=== PATIENT | female | born 1975 | race Caucasian/White ===

== ENCOUNTER → 2024-03-05 15:33 | Outpatient (BNVA) | payer OTHER, SELFPAY | PROVIDERS: Visit Provider Physician Assistant Surgical ==

== ENCOUNTER 2024-04-02 08:27 | Outpatient (AMB) | payer OTHER, SELFPAY ==
--- NOTE | 2024-04-02 12:31 | A.OFFVIS_ITS ---
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: Details: Start time: 12.25pm, End time: 1.06pm ?I spent 36 minutes speaking with the patient on the phone plus an additional 5 minutes reviewing and updating records for a total of 41 minutes HPI Comments Details: Previous weight loss efforts: self diets and exercise Wakes up: 9am, Sleeps: 11pm Breakfast: skips Lunch: 1pm (canned chicken with lettuce) Dinner: 6-7pm (vegetables, fish) Snacks: none Exercise: none Fluids: Coffee: (1 cup/day with splenda), tea: none, soda: none, juice: Crystal light, ETOH: none PFSH Medical History (Updated 04/02/24 @ 12:40 by Pan Quintero MD) Lower extremity edema CHF (congestive heart failure) Hypertension DJD (degenerative joint disease) Asthma Insulin dependent type 2 diabetes mellitus Obstructive sleep apnea on CPAP Morbid obesity Surgical History (Updated 04/02/24 @ 12:40 by Pan Quintero MD) History of tubal ligation Telehealth Telehealth Telehealth Platform: Telephone Location of provider rendering services: practice address Location of patient: address on file Patient Identification confirmed using: Name, : Yes Telehealth method: voice only Patient verbally consented to treatment: Yes Patient verbally consented to billing insurance company: Yes Patient informed of any privacy concerns related to visit: Yes Minutes spent on Phone/Video with Pt.: 41 Assessment & Plan Assessment & Plan (1) Morbid obesity: Code(s): E66.01 - Morbid (severe) obesity due to excess calories Category: Medical Plan: 1.? Plan for lap sleeve gastrectomy. If diaphragmatic or ventral hernias are present at time of surgery, these will be repaired laparoscopically as well. Risks and complications include possible conversion to an open procedure, anastomotic leak, bleeding requiring transfusion, small bowel obstruction, , DVT and pulmonary embolism, cardiac, or pulmonary complications, as skilled nursing complications such as anastomotic ulcer, insufficient weight loss and vitamin deficiencies. I emphasized the importance of close follow-up, adherence to instructions and good communication. 2. You will receive a link of our software radha to generate an individualized nutritional and exercise plan specific for you. Please send me a screenshot of the plans you will generate Meal to include lean meat (beef, fish, pork, turkey, chicken), or indian yogurt, or egg whites, or beans with a salad with olive oil and fruits (berries, pears, apples, kiwi). Avoid salt, breads, potatoes, rice, pasta, desserts. ?3. If you choose shakes, each shake would be drunk slowly, like coffee in a period of 2 hours. ?4. If you choose bars, cut each bar in 4 pieces and eat each piece in 30min ?to make each bar last 2 hours. ?5. I emphasized the importance of measuring accurately the food portion and measure it when serving the food in plate ?6. The meal portions include a specific number of forks of meat and salad. You always eat the meat portion but you can replace up to half of salad/vegetables portion with rice, potatoes or pasta, or a fruit ?if you like. The less you do it the better weight loss will be. ?7. One full-size fork is what it can be scooped on the fork without falling aside and not what can be bit with the fork. Use regular forks like those you find in a typical restaurant. ?8.? Please send me weight measurements as soon as possible and then once a week. Always include your diet and exercise plan. 9. The best choice would be to purchase a stationary bike, elliptical or treadmill at home that can track calories. Let me know if you do so I can give you an exercise plan. ?10.?It is important of avoiding and for at least 18 months postoperatively and has been discussed at the infosession. ?11. Goal is to lose at least 1.5-2lbs per week ?12. Goal to lose 10% of your weight before surgery, which is about 38lbs. Ultimate weight goal: 350lbs before surgery 13. Please follow the diet plan exactly without any change. If you don't like something about the plan or you feel hungry you need to communicate with me so I can help you revise the plan. You should not change the plan yourself. Orders: Orders Insulin Today E11.9 - Type 2 diabetes mellitus without complications, E66.01 - Morbid (severe) obesity due to excess calories, G47.33 - Obstructive sleep apnea (adult) (pediatric), I10 - Essential (primary) hypertension, I50.9 - Heart failure, unspecified, J45.909 - Unspecified asthma, uncomplicated, Z79.4 - custodial (current) use of insulin H Pylori Breath Test Today E11.9 - Type 2 diabetes mellitus without complications, E66.01 - Morbid (severe) obesity due to excess calories, G47.33 - Obstructive sleep apnea (adult) (pediatric), I10 - Essential (primary) hypertension, I50.9 - Heart failure, unspecified, J45.909 - Unspecified asthma, uncomplicated, Z79.4 - long term care administrator (current) use of insulin Complete Blood Count Auto Diff Today E11.9 - Type 2 diabetes mellitus without complications, E66.01 - Morbid (severe) obesity due to excess calories, G47.33 - Obstructive sleep apnea (adult) (pediatric), I10 - Essential (primary) hypertension, I50.9 - Heart failure, unspecified, J45.909 - Unspecified asthma, uncomplicated, Z79.4 - long term care administrator (current) use of insulin Lipid Panel Today E11.9 - Type 2 diabetes mellitus without complications, E66.0 1 - Morbid (severe) obesity due to excess calories, G47.33 - Obstructive sleep apnea (adult) (pediatric), I10 - Essential (primary) hypertension, I50.9 - Heart failure, unspecified, J45.909 - Unspecified asthma, uncomplicated, Z79.4 - custodial (current) use of insulin IRON PROFILE Today E11.9 - Type 2 diabetes mellitus without complications, E66.01 - Morbid (severe) obesity due to excess calories, G47.33 - Obstructive sleep apnea (adult) (pediatric), I10 - Essential (primary) hypertension, I50.9 - Heart failure, unspecified, J45.909 - Unspecified asthma, uncomplicated, Z79.4 - custodial (current) use of insulin Vitamin B12 and Folate Today E11.9 - Type 2 diabetes mellitus without complications, E66.01 - Morbid (severe) obesity due to excess calories, G47.33 - Obstructive sleep apnea (adult) (pediatric), I10 - Essential (primary) hypertension, I50.9 - Heart failure, unspecified, J45.909 - Unspecified asthma, uncomplicated, Z79.4 - long term care administrator (current) use of insulin Vitamin B1 Today E11.9 - Type 2 diabetes mellitus without complications, E66.01 - Morbid (severe) obesity due to excess calories, G47.33 - Obstructive sleep apnea (adult) (pediatric), I10 - Essential (primary) hypertension, I50.9 - Heart failure, unspecified, J45.909 - Unspecified asthma, uncomplicated, Z79.4 - custodial (current) use of insulin US abdomen comp w elastography Today E11.9 - Type 2 diabetes mellitus without complications, E66.01 - Morbid (severe) obesity due to excess calories, G47.33 - Obstructive sleep apnea (adult) (pediatric), I10 - Essential (primary) hypertension, I50.9 - Heart failure, unspecified, J45.909 - Unspecified asthma, uncomplicated, Z79.4 - custodial (current) use of insulin XR chest 2V Today E11.9 - Type 2 diabetes mellitus without complications, E66.01 - Morbid (severe) obesity due to excess calories, G47.33 - Obstructive sleep apnea (adult) (pediatric), I10 - Essential (primary) hypertension, I50.9 - Heart failure, unspecified, J45.909 - Unspecified asthma, uncomplicated, Z79.4 - custodial (current) use of insulin Hemoglobin A1c Today E11.9 - Type 2 diabetes mellitus without complications, E66.01 - Morbid (severe) obesity due to excess calories, G47.33 - Obstructive sleep apnea (adult) (pediatric), I10 - Essential (primary) hypertension, I50.9 - Heart failure, unspecified, J45.909 - Unspecified asthma, uncomplicated, Z79.4 - long term care administrator (current) use of insulin Comprehensive Met. Panel Today E11.9 - Type 2 diabetes mellitus without complications, E66.01 - Morbid (severe) obesity due to excess calories, G47.33 - Obstructive sleep apnea (adult) (pediatric), I10 - Essential (primary) hypertension, I50.9 - Heart failure, unspecified, J45.909 - Unspecified asthma, uncomplicated, Z79.4 - long term care administrator (current) use of insulin Zinc Today E11.9 - Type 2 diabetes mellitus without complications, E66.01 - Morbid (severe) obesity due to excess calories, G47.33 - Obstructive sleep apnea (adult) (pediatric), I10 - Essential (primary) hypertension, I50.9 - Heart failure, unspecified, J45.909 - Unspecified asthma, uncomplicated, Z79.4 - long term care administrator (current) use of insulin C Reactive Protein Today E11.9 - Type 2 diabetes mellitus without complications, E66.01 - Morbid (severe) obesity due to excess calories, G47.33 - Obstructive sleep apnea (adult) (pediatric), I10 - Essential (primary) hypertension, I50.9 - Heart failure, unspecified, J45.909 - Unspecified asthma, uncomplicated, Z79.4 - long term care administrator (current) use of insulin Vitamin A Today E11.9 - Type 2 diabetes mellitus without complications, E66.01 - Morbid (severe) obesity due to excess calories, G47.33 - Obstructive sleep apnea (adult) (pediatric), I10 - Essential (primary) hypertension, I50.9 - Heart failure, unspecified, J45.909 - Unspecified asthma, uncomplicated, Z79.4 - custodial (current) use of insulin TSH reflex Free T4 Today E11.9 - Type 2 diabetes mellitus without complications, E66.01 - Morbid (severe) obesity due to excess calories, G47.33 - Obstructive sleep apnea (adult) (pediatric), I10 - Essential (primary) hypertension, I50.9 - Heart failure, unspecified, J45.909 - Unspecified asthma, uncomplicated, Z79.4 - long term care administrator (current) use of insulin Ferritin Today E11.9 - Type 2 diabetes mellitus without complications, E66.01 - Morbid (severe) obesity due to excess calories, G47.33 - Obstructive sleep apnea (adult) (pediatric), I10 - Essential (primary) hypertension, I50.9 - Heart failure, unspecified, J45.909 - Unspecified asthma, uncomplicated, Z79.4 - long term care administrator (current) use of insulin Vitamin D 25-OH Total Today E11.9 - Type 2 diabetes mellitus without complications, E66.01 - Morbid (severe) obesity due to excess calories, G47.33 - Obstructive sleep apnea (adult) (pediatric), I10 - Essential (primary) hypertension, I50.9 - Heart failure, unspecified, J45.909 - Unspecified asthma, uncomplicated, Z79.4 - custodial (current) use of insulin ECG 12 lead EKG Today E11.9 - Type 2 diabetes mellitus without complications, E66.01 - Morbid (severe) obesity due to excess calories, G47.33 - Obstructive s leep apnea (adult) (pediatric), I10 - Essential (primary) hypertension, I50.9 - Heart failure, unspecified, J45.909 - Unspecified asthma, uncomplicated, Z79.4 - long term care administrator (current) use of insulin FL upper GI w air Today E11.9 - Type 2 diabetes mellitus without complications, E66.01 - Morbid (severe) obesity due to excess calories, G47.33 - Obstructive sleep apnea (adult) (pediatric), I10 - Essential (primary) hypertension, I50.9 - Heart failure, unspecified, J45.909 - Unspecified asthma, uncomplicated, Z79.4 - long term care administrator (current) use of insulin Referrals Nutrition/Dietitian Referral E11.9 - Type 2 diabetes mellitus without complications, E66.01 - Morbid (severe) obesity due to excess calories, G47.33 - Obstructive sleep apnea (adult) (pediatric), I10 - Essential (primary) hypertension, I50.9 - Heart failure, unspecified, J45.909 - Unspecified asthma, uncomplicated, Z79.4 - custodial (current) use of insulin Behavioral Health Referral E11.9 - Type 2 diabetes mellitus without complications, E66.01 - Morbid (severe) obesity due to excess calories, G47.33 - Obstructive sleep apnea (adult) (pediatric), I10 - Essential (primary) hypertension, I50.9 - Heart failure, unspecified, J45.909 - Unspecified asthma, uncomplicated, Z79.4 - long term care administrator (current) use of insulin
[2024-04-02 12:56] VITALS: BMI 72.1
--- OUTSIDE RECORDS SUMMARY | 2024-04-04 10:09 | XMS_ITS | Continuity of Care Document ---
Author Organization [facility] Address [address] [place] [address]- Care Team Providers Care Certified [place] Reporter Name Role Phone Allyson ARMSTRONG Hazel Primary Care Physician Encounter [facility] Date(s): 09/13/22 - 10/28/22 [facility] [address] [place] [address]- Attending Physician: Enedina Price NP Admitting Physician: Enedina Price NP Allergies, Adverse Reactions, Alerts Substance Reaction Severity Status sulfamethoxazole itch Active Immunizations Given and Recorded Vaccine Date Status Refusal Reason SARS-CoV-2 (COVID-19) mRNA BNT-162b2 vac 07/01/21 Given SARS-CoV-2 (COVID-19) mRNA BNT-162b2 vac 1 02/14/21 Recorded influenza virus vaccine, inactivated 2 08/10/20 Gi erwin influenza virus vaccine, inactivated 10/11/16 Jaciel rded influenza virus vaccine, inactivated 08/14/16 Give n influenza virus vaccine, inactivated 11/25/15 Give n influenza virus vaccine, inactivated 3 10/30/14 Gi erwin influenza virus vaccine, inactivated 4 06/20/12 Gi erwin influenza virus vaccine, inactivated 10/09/11 Jaciel rded influenza virus vaccine, inactivated 5 09/14/11 Gi erwin influenza virus vaccine, inactivated 6 02/06/11 Gi erwin influenza virus vaccine, inactivated 10/06/10 Jaciel rded influenza virus vaccine, inactivated 08/10/09 Jaciel rded influenza virus vaccine, inactivated 09/03/07 Jaciel rded pneumococcal 23-valent vaccine 7 06/30/11 Given tetanus/diphtheria/pertussis, acel(Tdap) 10/06/10 Recorded diphtheria-tetanus toxoids (DT) 8 06/15/09 Given tetanus-diphtheria toxoids (Td) 12/23/08 Recorded 1Result Comment: in error 2Early/Late Reason: Med Not Available 3Result Comment: [10/30/2014] [id number] 4Admin Note: VIS GIVEN DATED: 04/29/12 5Admin Note: vis given 05/23/11 6Admin Note: VIS GIVEN-DATED 06/07/10 7Admin Note: vis give dated 08/03/09 8Admin Note: VIS GIVEN VIS DATE 05/08/06 Medications albuterol 0.083% inhalation solution 3 mL = 2.5 mg, Inhalation, Every 6 hours, # 360 mL, 11 Refills, Maintenance, 07/17/22 11:50:00 EDT,Solution, [facility] #[id number], 152, cm, 07/12/22 13:07:00 EDT, Height, 175.5, kg, 08/09/20 0:18:00 EDT, Dry Weight Start Date: 07/17/22 Stop Date: 07/12/23 Status: Ordered bedside commode bedside commode, See Instructions, # 1 each, Refills 0, Tot. Refills 0, Maintenance, dx: CHF, REBEL, obesity, decrease strength and mobility, 09/07/22 10:45:00 EST, Supply Start Date: 09/07/22 Status: Ordered BP monitor and cuff BP monitor and cuff, See Instructions, # 1 kit, Refills 0, Tot. Refills 0, Maintenance, to check BPdaily. ICD code I10, 07/18/22 9:44:00 EDT, Supply Start Date: 07/18/22 Status: Ordered Freestyle jorden 2 sensors 14 day Freestyle jorden 2 sensors 14 day, See Instructions, # 2 each, Refills 11, Tot. Refills 11, Maintenance, check blood glucose 3 times daily DX: DM type 2, E11.9, 07/12/22 16:40:00 EDT, Supply, 152, cm,07/12/22 13:07:00 EDT, Height, 175.5, kg, ... Start Date: 07/12/22 Status: Ordered Freestyle Jorden Monitor See Instructions, # 1 each, Maintenance, use as directed for Type 2 Diabetes Mellitus, 07/12/22 16:40:00 EDT, freestyle jorden 2, Supply, 152, cm, 07/12/22 13:07:00 EDT, Height, 175.5, kg, 08/09/20 0:18:00 EDT, Dry Weight Start Date: 07/12/22 Stop Date: 08/11/22 Status: Ordered Freestyle Lite Lancets See Instructions, # 30 each, Refills 11, Tot. Refills 11, Maintenance, use to check bs daily dx e11.9, 07/19/22 9:11:00 EDT, Supply, 152, cm, 07/12/22 13:07:00 EDT, Height, 175.5, kg, 08/09/20 0:18:00 EDT, Dry Weight Start Date: 07/19/22 Status: Ordered Freestyle Lite Monitor See Instructions, # 1 each, Maintenance, use to check bs daily dx E11.9, 07/19/22 9:10:00 EDT, Supply, 152, cm, 07/12/22 13:07:00 EDT, Height, 175.5, kg, 08/09/20 0:18:00 EDT, Dry Weight Start Date: 07/19/22 Status: Ordered Freestyle Lite Test Strips See Instructions, # 30 each, Refills 11, Tot. Refills 11, Maintenance, use to check bs daily dx E11.9, 07/19/22 9:10:00 EDT, Supply, 152, cm, 07/12/22 13:07:00 EDT, Height, 175.5, kg, 08/09/20 0:18:00 EDT, Dry Weight Start Date: 07/19/22 Status: Ordered Freestyle Precision Frederick Blood Glucose Test Strips Freestyle Precision [place] Blood Glucose Test Strips, See Instructions, # 100 each, Refills 0, Tot. Refills 0, Maintenance, check blood glucose 3 times daily DX: DM type 2, E11.9, 07/12/22 16:40:00 EDT,Supply, 152, cm, 07/12/22 13:07:00 EDT, Height, 1... Start Date: 07/12/22 Status: Ordered furosemide 40 mg oral tablet 40 mg, 1, tablet, By Mouth, 2 times a day, # 180 tablet, Refills 11, Tot. Refills 11, Maintenance, 01/23/22 17:08:00 EDT, Route to Pharmacy Electronically, [facility] #[id number], 152, cm, 06/17/21 8:41:00 EDT, Height, 175.5, kg, 08/09/20 0:18:00... Start Date: 01/23/22 Stop Date: 01/07/25 Status: Ordered gabapentin 100 mg oral capsule 100 mg, 1, capsule, By Mouth, 3 times a day, # 90 capsule, Refills 0, Tot. Refills 0, Maintenance, 07/12/22 14:00:00 EDT, Route to Pharmacy Electronically, [facility] #[id number], Partial fill upon patient request if the prescription is for a [facility]... Start Date: 07/12/22 Status: Ordered lisinopril 5 mg oral tablet 5 mg, 1, tablet, By Mouth, Daily, # 30 tablet, Refills 2, Tot. Refills 2, Maintenance, 07/17/22 17:03:00 EDT, Route to Pharmacy Electronically, [facility] #[id number], Please disregard 10mg dosing, 152, cm, 07/12/22 13:07:00 EDT, Height, 175.5, k... Start Date: 07/17/22 Status: Ordered metFORMIN 1000 mg oral tablet 1 tablet = 1,000 mg, By Mouth, 2 times a day, # 60 tablet, 11 Refills, Maintenance, 07/12/22 13:42:00 EDT, Tablet, [facility] #[id number], cancel previous metformin scripts, 152, cm, 07/12/22 13:07:00 EDT, Height, 175.5, kg, 08/09/20 0:18:00 EDT,... Start Date: 07/12/22 Status: Ordered Mucinex 600 mg oral tablet, extended release 1 tablet = 600 mg, By Mouth, Every 12 hours, for 7 days, # 14 tablet, 0 Refills, Acute 10/31/22 15:33:00 EST, 10/24/22 15:33:00 EST, ER Tablet, [facility] #[id number], Partial fill upon patient request if the prescription is for a schedule II opi... Start Date: 10/24/22 Stop Date: 10/31/22 Status: Ordered nitrofurantoin macrocrystals-monohydrate 100 mg oral capsule TAKE 1 CAPSULE BY MOUTH TWICE DAILY FOR 1 MORE DOSE TO COMPLETE 5 DAYS TOTAL with food Start Date: 09/07/22 Status: Ordered Oxygen Supplies See Instructions, # 1 application, Maintenance, 2L with exertion dx: hypoxia w/ ambulation, 02/13/19 19:42:21 EDT, Compound Start Date: 02/13/19 Status: Ordered Paxlovid 150 mg-100 mg oral tablet See Instructions, 300mg nirmatrelvir (two 150mg tablets) with 100mg ritonavir (one tablet). All 3 tablets taken together twice daily By Mouth for 5 days, with or without food, # 30 tablet, 0 Refills,Acute 10/29/22 15:45:00 EST, 10/24/22 15:32:00 EST,... Start Date: 10/24/22 Stop Date: 10/29/22 Status: Ordered phenazopyridine 200 mg oral tablet 200 mg, 1, tablet, By Mouth, 3 times a day after meals, PRN, with food, # 6 tablet, Refills 0, Tot.Refills 0, Maintenance, as needed for urinary discomfort, 09/01/22 15:06:00 EDT, Route to Pharmacy Electronically, [facility] #[id number], Partial... Start Date: 09/01/22 Status: Ordered rolling walker rolling walker, See Instructions, # 1 each, Refills 0, Tot. Refills 0, Maintenance, dx: CHF, REBEL, obesity, decrease strength and mobility, 09/07/22 10:45:00 EST, Supply Start Date: 09/07/22 Status: Ordered Shower Chair See Instructions, # 1 each, Maintenance, Dispense: Bariatric Shower Chair Dx: Morbid Obesity, risk of falls, 06/20/21 19:31:00 EDT, Supply Start Date: 06/20/21 Status: Ordered Trelegy Ellipta 200 mcg-62.5 mcg-25 mcg/inh inhalation powder 1 puffs, Inhalation, Daily, at the same time every day, # 60 capsule, 11 Refills, Maintenance, 04/21/22 12:34:00 EDT, Powder, [facility] #[id number], Partial fill upon patient request if the prescription is for a schedule II opioid drug., 1 puffs... Start Date: 04/21/22 Stop Date: 04/16/23 Status: Ordered Trulicity Pen 0.75 mg/0.5 mL subcutaneous solution 0.5 mL = 0.75 mg, Subcutaneous Injection, Every week, rotate injection sites, # 2 mL, 3 Refills, Maintenance, 07/12/22 14:01:00 EDT, Solution, [facility] #[id number], Partial fill upon patient request if the prescription is for a schedule II opio... Start Date: 07/12/22 Status: Ordered Vitamin D3 2000 intl units oral capsule 1 capsule = 2,000 International_Units, By Mouth, Daily, # 60 capsule, 2 Refills, Maintenance, 07/17/22 16:56:00 EDT, Capsule, [facility] #[id number], Partial fill upon patient request if the prescription is for a schedule II opioid drug., 152, cm... Start Date: 07/17/22 Status: Ordered Walker See Instructions, # 1 each, Maintenance, Dispense: Heavy Duty wheeled walker with seat and brakes Dx: Morbid obesity, 06/20/21 19:30:00 EDT, Supply Start Date: 06/20/21 Status: Ordered Problem List Condition Confirmation Course Effective Dates Status H ealth Status Informant Arthritis of knees Confirmed Active Asthma Confirmed Active Cholesteatoma of ear Confirmed Active Complex ovarian cyst - see 2012 US Confirmed Active Oxygen desaturation during sleep 75% in 2012 Confirmed 2012 Active Heart failure with preserved ejection fraction Confirmed Active Hypoxia - desat on ambulation 02/10/19 (workup pending) Confirmed Active 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 Dx 06/07/09 Social History Social History Type Response Smoking Status Former smoker, quit more than 30 days ago entered on: 06/11/19 Sex Patient Care team information Care Team Personnel Name: Maty Valencia RN Position: [facility] RN Member Role: Primary Care Nurse Name: Danya Roman RN Position: [facility] AMB Nurse Member Role: Primary Care Nurse Name: Ashley Brownlee RN Position: [facility] ED RN W/OE and Tasks Member Role: Primary Care Nurse Name: Becca Enrique RN Position: [facility] RN Member Role: Primary Care Nurse Name: Zuly THOMSON) Elma Position: [facility] RN Member Role: Primary Care Nurse Name: Amanda Huerta RN Position: [facility] RN Member Role: Primary Care Nurse Name: Hazel Valadez DO Position: [facility] Resident Member Role: PCP Address: Address: [address] [place] [address] [place] [address]- Name: Juli Calles RN Position: [facility] RN Member Role: Primary Care Nurse Care Team Related Persons Name: LINDA ZULEIMA Address: [place] [address] Name: LUCITA TEMPLE Address: home [address] [address] Name: LARA TEMPLE Address: home [address] [place] [address] Name: JUSTIN HINES
--- OUTSIDE RECORDS SUMMARY | 2024-04-04 10:09 | XMS_ITS | Continuity of Care Document ---
Author Organization [facility] Address [address] [place] [address]- Care Team Providers Care Flash Welder Name Role Phone Hazel Valadez DO Primary Care Physician [phone] Encounter [facility] Date(s): 01/25/23 - 02/24/23 [facility] [address] [place], [place] [address] Allergies, Adverse Reactions, Alerts Substance Reaction Severity Status sulfamethoxazole itch Active Immunizations Given and Recorded Vaccine Date Status Refusal Reason influenza virus vaccine, inactivated 10/20/21 Jaciel rded influenza virus vaccine, inactivated 1 08/10/20 Gi erwin influenza virus vaccine, inactivated 10/11/16 Jaciel rded influenza virus vaccine, inactivated 08/14/16 Give n influenza virus vaccine, inactivated 11/25/15 Give n influenza virus vaccine, inactivated 2 10/30/14 Gi erwin influenza virus vaccine, inactivated 3 06/20/12 Gi erwin influenza virus vaccine, inactivated 10/09/11 Jaciel rded influenza virus vaccine, inactivated 4 09/14/11 Gi erwin influenza virus vaccine, inactivated 5 02/06/11 Gi erwin influenza virus vaccine, inactivated 10/06/10 Jaciel rded influenza virus vaccine, inactivated 08/10/09 Jaciel rded influenza virus vaccine, inactivated 09/03/07 Jaciel rded SARS-CoV-2 (COVID-19) mRNA BNT-162b2 vac 10/07/21 Recorded SARS-CoV-2 (COVID-19) mRNA BNT-162b2 vac 07/01/21 Given SARS-CoV-2 (COVID-19) mRNA BNT-162b2 vac 6 02/14/21 Recorded pneumococcal 23-valent vaccine 7 06/30/11 Given tetanus/diphtheria/pertussis, acel(Tdap) 10/06/10 Recorded diphtheria-tetanus toxoids (DT) 8 06/15/09 Given tetanus-diphtheria toxoids (Td) 12/23/08 Recorded 1Early/Late Reason: Med Not Available 2Result Comment: [10/30/2014] [id number] 3Admin Note: VIS GIVEN DATED: 04/29/12 4Admin Note: vis given 05/23/11 5Admin Note: VIS GIVEN-DATED 06/07/10 6Result Comment: in error 7Admin Note: vis give dated 08/03/09 8Admin Note: VIS GIVEN VIS DATE 05/08/06 Medications albuterol 0.083% inhalation solution 3 mL = 2.5 mg, Inhalation, Every 6 hours, # 360 mL, 11 Refills, Maintenance, 07/17/22 11:50:00 EDT,Solution, [facility] #[id number], 152, cm, 07/12/22 13:07:00 EDT, Height, 175.5, kg, 08/09/20 0:18:00 EDT, Dry Weight Start Date: 07/17/22 Stop Date: 07/12/23 Status: Ordered bariatric walker bariatric walker, See Instructions, # 1 each, Refills 0, Tot. Refills 0, Maintenance, for difficulty with ambulation, 12/01/22 11:24:00 EST, Supply Start Date: 12/01/22 Status: Ordered bedside commode bedside commode, See [...] 01/23/22 17:08:00 EDT, Route to Pharmacy Electronically, [facility] #[id number], 152, cm, 06/17/21 8:41:00 EDT, Height, 175.5, kg, 08/09/20 0:18:00... Start Date: 01/23/22 Stop Date: 01/07/25 Status: Ordered gabapentin 100 mg oral capsule 100 mg, 1, capsule, By Mouth, 3 times a day, # 90 capsule, Refills 0, Tot. Refills 0, Maintenance, 12/14/22 17:21:00 EST, Route to Pharmacy Electronically, [facility] #[id number], Partial fill upon patient request if the prescription is for a kelly... Start Date: 12/14/22 Status: Ordered ibuprofen 800 mg oral tablet 800 mg, 1, tablet, By Mouth, 3 times a day, for pain with food or milk, # 30 tablet, Refills 0, Tot. Refills 0, Maintenance, 02/09/23 17:06:00 EDT, Route to Pharmacy Electronically, [facility] #[id number], Partial fill upon patient request if th... Start Date: 02/09/23 Status: Ordered lisinopril 5 mg oral tablet 5 mg, 1, tablet, By Mouth, Daily, Need follow up with your pcp, # 30 tablet, Refills 0, Tot. Refills 0, Acute 02/25/23 17:31:00 EDT, 01/25/23 17:31:00 EDT, Route to Pharmacy Electronically, [email or web address] #[id number], Please disregard 10mg dosing, 14... Start Date: 01/25/23 Stop Date: 02/25/23 Status: Ordered metFORMIN 1000 mg oral tablet 1 tablet = 1,000 mg, By Mouth, 2 times a day, # 60 tablet, 11 Refills, Maintenance, 07/12/22 13:42:00 EDT, Tablet, [facility] #[id number], cancel previous metformin scripts, 152, cm, 07/12/22 13:07:00 EDT, Height, 175.5, kg, 08/09/20 0:18:00 EDT,... Start Date: 07/12/22 Status: Ordered Oxygen Supplies See Instructions, # 1 application, Maintenance, 2L with exertion dx: hypoxia w/ ambulation, 02/13/19 19:42:21 EDT, Compound Start Date: 02/13/19 Status: Ordered rolling walker rolling walker, See [...] 11 Refills, Maintenance, 04/21/22 12:34:00 EDT, Powder, [facility] #[id number], Partial fill upon patient request if the prescription is for a schedule II opioid drug., 1 puffs... Start Date: 04/21/22 Stop Date: 04/16/23 Status: Ordered Trulicity Pen 0.75 mg/0.5 mL subcutaneous solution 0.5 mL = 0.75 mg, Subcutaneous Injection, Every week, rotate injection sites, # 2 mL, 3 Refills, Maintenance, 07/12/22 14:01:00 EDT, Solution, [facility] #[id number], Partial fill upon patient request if the prescription is for a schedule II opio... Start Date: 07/12/22 Status: Ordered Vitamin D3 2000 intl units oral capsule 1 capsule = 2,000 International_Units, By Mouth, Daily, # 60 capsule, 2 Refills, Maintenance, 07/17/22 16:56:00 EDT, Capsule, [facility] #[id number], Partial fill upon patient request if the [...] Confirmed Active Complex ovarian cyst - see 2011 US Confirmed Active Oxygen desaturation during sleep 75% in 2011 Confirmed 2011 Active Heart failure with preserved ejection fraction [...] Severe obesity Confirmed Active DMII Confirmed Active 1DrRyder aWde [phone], Norma. Dx 06/07/09 Social History Social History Type Response Smoking Status Former smoker, quit more than 30 days ago entered on: 06/11/19 Sex Patient Care team information Care Team Personnel Name: Jayna Sandhu RN Position: [facility] RN Member Role: Primary Care Nurse Name: Maty Valencia RN Position: [facility] RN Member Role: Primary Care Nurse Name: Roger Peña RN Position: [facility] RN Supv Member Role: Primary Care Nurse Name: Mihir Jackson RN Position: [facility] RN Member Role: Primary Care Nurse Name: Tessy Jaramillo RN Position: [facility] RN Member Role: Primary Care Nurse Name: Danya Roman RN Position: [facility] SN RN Member Role: Primary Care Nurse Name: Ashley Brownlee RN Position: [facility] ED RN W/OE and Tasks Member Role: Primary Care Nurse Name: Becca Enrique RN Position: [facility] RN Member Role: Primary Care Nurse Name: Elma Caruso (INSTR) Position: S RN Member Role: Primary Care Nurse Name: Amanda Huerta RN Position: [facility] RN Member Role: Primary Care Nurse Name: Yessica Stock Position: S RN Member Role: Primary Care Nurse Name: Hazel Valadez DO Position: [facility] Resident Member Role: PCP Address: Address: [address] [place] [address] [place], [place] [id number] Name: Radha Bravo RN Position: S RN Member Role: Primary Care Nurse Name: Juli Calles RN Position: [facility] RN Member Role: Primary Care Nurse Care Team Related Persons Name: ZULEIMA MCKEON Address: [place] [address] Name: LUCITA TEMPLE Address: home Name: LARA TEMPLE Name: JUSTIN HINES
--- OUTSIDE RECORDS SUMMARY | 2024-04-04 10:09 | XMS_ITS | Continuity of Care Document ---
Author Organization [facility] Address [address] [place] [address]- Care Team Providers Care Dat Instructor Name Role Phone Joey Steele MD Primary Care Physician Encounter [facility] [place] Date(s): 03/11/21 - 04/10/21 [facility] [address], [place] [address] Attending Physician: Ru Almanza MD Admitting Physician: Ru Almanza MD Allergies, Adverse Reactions, Alerts Substance Reaction Severity Status sulfamethoxazole itch Active Immunizations Given and Recorded Vaccine Date Status Refusal Reason influenza virus vaccine, inactivated 1 08/10/20 Gi erwin influenza virus vaccine, inactivated 08/14/16 Give n influenza virus vaccine, inactivated 11/25/15 Give n influenza virus vaccine, inactivated 2 10/30/14 Gi erwin influenza virus vaccine, inactivated 3 06/20/12 Gi erwin influenza virus vaccine, inactivated 4 09/14/11 Gi rewin influenza virus vaccine, inactivated 5 02/06/11 Gi erwin pneumococcal 23-valent vaccine 6 06/30/11 Given diphtheria-tetanus toxoids (DT) 7 06/15/09 Given 1Early/Late Reason: Med Not Available 2Result Comment: [10/30/2014] [id number] 3Admin Note: VIS GIVEN DATED: 04/29/12 4Admin Note: vis given 05/23/11 5Admin Note: VIS GIVEN-DATED 06/07/10 6Admin Note: vis give dated 08/03/09 7Admin Note: VIS GIVEN VIS DATE 05/08/06 Medications albuterol 0.083% inhalation solution 3 mL = 2.5 mg, Inhalation, Every 6 hours, # 360 mL, 11 Refills, Maintenance, 08/29/20 20:48:00 EST,Solution, [facility], 152, cm, 08/13/20 13:28:00 EDT, Height, 175.5, kg, 08/09/20 0:18:00 EDT, Dry Weight Start Date: 08/29/20 Stop Date: 08/24/21 Status: Ordered albuterol CFC free 90 mcg/inh inhalation aerosol 2, puffs, Inhalation, 4 times a day, PRN, FOR WHEEZING AND SHORTNESS OF BREATH for 30 days, # 1 each, Refills 11, Tot. Refills 11, Hard Stop 08/24/21 20:48:00 EDT, 08/29/20 20:48:00 EST, Route to Pharmacy Electronically, [id number]... Start Date: 08/29/20 Stop Date: 08/24/21 Status: Ordered albuterol CFC free 90 mcg/inh inhalation aerosol 2, puffs, Inhalation, 4 times a day, PRN, FOR WHEEZING AND SHORTNESS OF BREATH, # 1 each, Refills 5, Tot. Refills 5, Maintenance, 08/24/21 20:48:00 EDT, Route to Pharmacy Electronically, [id number], [facility] #[id number]... Start Date: 08/24/21 Stop Date: 02/20/22 Status: Ordered Compression Stockings See Instructions, # 2 each, Refills 1, Tot. Refills 1, Maintenance, surgical, calf length 20-30 mm Hg , edema ICD R60., 03/11/20 8:38:00 EDT, Supply, 150, cm, 07/31/19 11:34:00 EDT, Height, 178.4, kg, 06/11/19 21:11:00 EDT, Dry Weight Start Date: 03/11/20 Status: Ordered duloxetine 60 mg oral enteric coated capsule 1 capsule = 60 mg, By Mouth, Daily, # 30 capsule, 10 Refills, Maintenance, 10/14/20 15:08:00 EST, EC Capsule, [facility] #[id number], Partial fill upon patient request if the prescription is fora schedule II opioid drug., 152, cm, 08/13/20 13:28... Start Date: 10/14/20 Status: Ordered furosemide 40 mg oral tablet 40 mg, 1, tablet, By Mouth, 2 times a day, # 60 tablet, Refills 10, Tot. Refills 10, Maintenance, 10/14/20 15:09:00 EST, Route to Pharmacy Electronically, [facility] #[id number], 152, cm, 08/13/20 13:28:00 EDT, Height, 175.5, kg, 08/09/20 0:18:00... Start Date: 10/14/20 Stop Date: 09/09/21 Status: Ordered indomethacin 50 mg oral capsule 1 capsule = 50 mg, By Mouth, 3 times a day, PRN for gout pain, # 15 capsule, 0 Refills, Maintenance, 03/16/21 16:28:00 EDT, Capsule, [facility] #[id number], Partial fill upon patient request if the prescription is for a schedule II opioid drug.,... Start Date: 03/16/21 Stop Date: 03/21/21 Status: Ordered metFORMIN 1000 mg oral tablet 1 tablet = 1,000 mg, By Mouth, 2 times a day, takes once daily for 2 weeks, then increase to BID, #60 tablet, 11 Refills, Maintenance, 10/14/20 15:09:00 EST, Tablet, [facility] #[id number], 152, cm, 08/13/20 13:28:00 EDT, Height, 175.5, kg, 07/29... Start Date: 10/14/20 Status: Ordered morphine 15 mg oral tablet, immediate release 1 tablet = 15 mg, By Mouth, Every 4 hours, PRN as needed for pain, # 10 tablet, 0 Refills, Maintenance, 03/12/21 1:49:00 EDT, Tablet, [facility] #[id number], Partial fill upon patient request, 152, cm, 08/13/20 13:28:00 EDT, Height, 175.5, kg, 10... Start Date: 03/12/21 Status: Ordered Oxygen Supplies See Instructions, # 1 application, Maintenance, 2L with exertion dx: hypoxia w/ ambulation, 02/13/19 19:42:21 EDT, Compound Start Date: 02/13/19 Status: Ordered phentermine 37.5 mg oral capsule TK 1 C PO ONCE DAILY Start Date: 07/22/20 Status: Ordered rOPINIRole 1 mg oral tablet 1 tablet = 1 mg, By Mouth, Daily at bedtime, # 30 tablet, 10 Refills, Maintenance, 10/14/20 15:09:00 EST, Tablet, [facility] #[id number], 152, cm, 08/13/20 13:28:00 EDT, Height, 175.5, kg, 08/09/20 0:18:00 EDT, Dry Weight Start Date: 10/14/20 Status: Ordered Vitamin D3 2000 intl units oral capsule 1 capsule = 2,000 International_Units, By Mouth, Daily, # 60 capsule, 2 Refills, Maintenance, 11/02/20 10:14:00 EST, Capsule, [facility] #[id number], Partial fill upon patient request if the prescription is for a schedule II opioid drug., 152, cm... 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 Dx 06/07/09 Social History Social History Type Response Smoking Status Former smoker, quit more than 30 days ago entered on: 06/11/19 Sex
--- OUTSIDE RECORDS SUMMARY | 2024-04-04 10:09 | XMS_ITS | Continuity of Care Document ---
Author Organization [facility] Address [address] [place] [address]- Care Team Providers Care Poultry Processing Supervisor Name Role Phone Hazel Valadez DO Primary Care Physician [phone] Encounter [facility] [place] [place] [facility] R [id number] Date(s): 04/17/22 - 05/17/[address] [address]- Attending Physician: Vannesa Paulino Admitting Physician: AdmtrVannesa Referring Physician: Admtr, Ar8 Allergies, Adverse Reactions, Alerts Substance Reaction Severity [...] Jaciel rded influenza virus vaccine, inactivated 09/03/07 Jaicel rded pneumococcal 23-valent vaccine 7 06/30/11 Given tetanus/diphtheria/pertussis, acel(Tdap) 10/06/10 Recorded diphtheria-tetanus toxoids (DT) 8 06/15/09 Given tetanus-diphtheria toxoids (Td) 12/23/08 Recorded 1Result Comment: in error 2Early/Late Reason: Med Not Available 3Result Comment: [10/30/2014] [id number] 4Admin Note: VIS GIVEN DATED: 04/29/12 5Admin Note: vis given 05/23/11 6Admin Note: VIS GIVEN-DATED 06/07/10 7Admin Note: vis give dated 08/03/09 8Admin Note: VIS GIVEN VIS DATE 05/08/06 Medications albuterol 0.083% inhalation solution 3 mL = 2.5 mg, Inhalation, Every 6 hours, # 360 mL, 11 Refills, Maintenance, 08/29/20 20:48:00 EST,Solution, [facility], 152, cm, 08/13/20 13:28:00 EDT, Height, 175.5, kg, 08/09/20 0:18:00 EDT, Dry Weight Start Date: 08/29/20 Stop Date: 08/24/21 Status: Ordered albuterol CFC free 90 mcg/inh inhalation aerosol 2, puffs, Inhalation, 4 times a day, PRN, FOR WHEEZING AND SHORTNESS OF BREATH, # 1 each, Refills 5, Tot. Refills 5, Maintenance, 08/24/21 20:48:00 EDT, Route to Pharmacy Electronically, [id number], [facility] #[id number]... Start Date: 08/24/21 Stop Date: 02/20/22 Status: Ordered duloxetine 60 mg oral enteric coated capsule 1 capsule = 60 mg, By Mouth, Daily, # 30 capsule, 10 Refills, Maintenance, 10/14/20 15:08:00 EST, EC Capsule, [facility] #[id number], Partial fill upon patient request if the prescription is fora schedule II opioid drug., 152, cm, 08/13/20 13:28... Start Date: 10/14/20 Status: Ordered furosemide 40 mg oral tablet 40 mg, 1, tablet, By Mouth, 2 times a day, # 180 tablet, Refills 11, Tot. Refills 11, Maintenance, 01/23/22 17:08:00 EDT, Route to Pharmacy Electronically, [facility] #[id number], 152, cm, 06/17/21 8:41:00 EDT, Height, 175.5, kg, 08/09/20 0:18:00... Start Date: 01/23/22 Stop Date: 01/07/25 Status: Ordered hydrOXYzine hydrochloride 25 mg oral tablet 1 tablet = 25 mg, By Mouth, 4 times a day, PRN for anxiety, # 40 tablet, 1 Refills, Maintenance, 08/28/21 15:25:00 EDT, Tablet, [facility] #[id number], Partial fill upon patient request if the prescription is for a schedule II opioid drug., 152,... Start Date: 08/28/21 Stop Date: 10/27/21 Status: Ordered meloxicam 15 mg oral tablet 1 tablet = 15 mg, By Mouth, Daily, For knee and back pain, # 30 tablet, 2 Refills, Maintenance, 06/17/21 9:06:00 EDT, Tablet, [facility] #[id number], Partial fill upon patient request if the prescription is for a schedule II opioid drug., 152, cm... Start Date: 06/17/21 Status: Ordered metFORMIN 1000 mg oral tablet 1 tablet = 1,000 mg, By Mouth, 2 times a day, # 60 tablet, 11 Refills, Maintenance, 06/17/21 9:12:00 EDT, Tablet, [facility] #[id number], cancel previous metformin scripts, 152, cm, 06/17/21 8:41:00 EDT, Height, 175.5, kg, 08/09/20 0:18:00 EDT, D... Start Date: 06/17/21 Status: Ordered Oxygen Supplies See Instructions, # [...] 10 Refills, Maintenance, 10/14/20 15:09:00 EST, Tablet, [facility] #[id number], 152, cm, 08/13/20 13:28:00 EDT, Height, 175.5, kg, 08/09/20 0:18:00 EDT, Dry Weight Start Date: 10/14/20 Status: Ordered Shower Chair See Instructions, # 1 each, Maintenance, Dispense: Bariatric Shower Chair Dx: Morbid Obesity, risk of falls, 06/20/21 19:31:00 EDT, Supply Start Date: 06/20/21 Status: Ordered Trelegy Ellipta 200 mcg-62.5 mcg-25 mcg/inh inhalation powder 1 puffs, Inhalation, Daily, at the same time every day, # 60 capsule, 11 Refills, Maintenance, 04/21/22 12:34:00 EDT, Powder, [facility] #[id number], Partial fill upon patient request if the prescription is for a schedule II opioid drug., 1 puffs... Start Date: 04/21/22 Stop Date: 04/16/23 Status: Ordered Vitamin D3 2000 intl units oral capsule 1 capsule = 2,000 International_Units, By Mouth, Daily, # 60 capsule, 2 Refills, Maintenance, 11/02/20 10:14:00 EST, Capsule, [facility] #[id number], Partial fill upon patient request if the prescription is for a schedule II opioid drug., 152, cm... 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 Dx 06/07/09 Social History Social History Type Response Smoking Status Former smoker, quit more than 30 days ago entered on: 06/11/19 Sex
--- OUTSIDE RECORDS SUMMARY | 2024-04-04 10:09 | XMS_ITS | Continuity of Care Document ---
Author Organization [facility] Address [address] [place] [address]- Care Team Providers Care Sales Development Associate Name Role Phone Joey Steele MD Primary Care Physician Encounter [facility] Date(s): 12/20/21 - 02/23/[address] [address]- Attending Physician: Maximus Rosen MD Admitting Physician: Maximus Rosen MD Referring Physician: Joey Steele MD Allergies, Adverse Reactions, Alerts Substance Reaction [...] Reason: Med Not Available 3Result Comment: [10/30/2014] [id number] 4Admin Note: VIS GIVEN DATED: 04/29/12 5Admin Note: vis given 05/23/11 6Admin Note: VIS GIVEN-DATED 06/07/10 7Admin Note: vis give dated 08/03/09 8Admin Note: VIS GIVEN VIS DATE 05/08/06 Medications albuterol 0.083% inhalation solution 3 mL = 2.5 mg, Inhalation, Every 6 hours, # 360 mL, 11 Refills, Maintenance, 08/29/20 20:48:00 EST,Solution, [facility], 152, cm, 08/13/20 13:28:00 EDT, Height, 175.5, kg, 08/09/20 0:18:00 EDT, Dry Weight Start Date: 08/29/20 Stop Date: 08/24/21 Status: Ordered albuterol CFC free 90 mcg/inh inhalation aerosol 2, puffs, Inhalation, 4 times a day, PRN, FOR WHEEZING AND SHORTNESS OF BREATH, # 1 each, Refills 5, Tot. Refills 5, Maintenance, 08/24/21 20:48:00 EDT, Route to Pharmacy Electronically, [id number], [facility] #[id number]... Start Date: 08/24/21 Stop Date: 02/20/22 Status: Ordered duloxetine 60 mg oral enteric coated capsule 1 capsule = 60 mg, By Mouth, Daily, # 30 capsule, 10 Refills, Maintenance, 10/14/20 15:08:00 EST, EC Capsule, [facility] #[id number], Partial fill upon patient request if the prescription is fora schedule II opioid drug., 152, cm, 08/13/20 13:28... Start Date: 10/14/20 Status: Ordered furosemide 40 mg oral tablet 40 mg, 1, tablet, By Mouth, 2 times a day, # 180 tablet, Refills 11, Tot. Refills 11, Maintenance, 01/23/22 17:08:00 EDT, Route to Pharmacy Electronically, [facility] #[id number], 152, cm, 06/17/21 8:41:00 EDT, Height, 175.5, kg, 08/09/20 0:18:00... Start Date: 01/23/22 Stop Date: 01/07/25 Status: Ordered hydrOXYzine hydrochloride 25 mg oral tablet 1 tablet = 25 mg, By Mouth, 4 times a day, PRN for anxiety, # 40 tablet, 1 Refills, Maintenance, 08/28/21 15:25:00 EDT, Tablet, [facility] #[id number], Partial fill upon patient request if the prescription is for a schedule II opioid drug., 152,... Start Date: 08/28/21 Stop Date: 10/27/21 Status: Ordered meloxicam 15 mg oral tablet 1 tablet = 15 mg, By Mouth, Daily, For knee and back pain, # 30 tablet, 2 Refills, Maintenance, 06/17/21 9:06:00 EDT, Tablet, [facility] #[id number], Partial fill upon patient request if the prescription is for a schedule II opioid drug., 152, cm... Start Date: 06/17/21 Status: Ordered metFORMIN 1000 mg oral tablet 1 tablet = 1,000 mg, By Mouth, 2 times a day, # 60 tablet, 11 Refills, Maintenance, 06/17/21 9:12:00 EDT, Tablet, [facility] #[id number], cancel previous metformin scripts, 152, cm, 06/17/21 [...] 10 Refills, Maintenance, 10/14/20 15:09:00 EST, Tablet, [facility] #[id number], 152, cm, 08/13/20 13:28:00 EDT, Height, 175.5, kg, 08/09/20 0:18:00 EDT, Dry Weight Start Date: 10/14/20 Status: Ordered Shower Chair See Instructions, # 1 each, Maintenance, Dispense: Bariatric Shower Chair Dx: Morbid Obesity, risk of falls, 06/20/21 19:31:00 EDT, Supply Start Date: 06/20/21 Status: Ordered Vitamin D3 2000 intl units oral capsule 1 capsule = 2,000 International_Units, By Mouth, Daily, # 60 capsule, 2 Refills, Maintenance, 11/02/20 10:14:00 EST, Capsule, [facility] #[id number], Partial fill upon patient request if the [...] desaturation during s leep 75% in 2012(Confirmed) 2011 Active Heart failure with preserved ejection fraction(Confirmed) Active Hypoxia - desat on ambulatio n 02/10/19 (workup pending)(Confirmed) Active 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 Dx 06/07/09 Social History Social History Type Response Smoking Status Former smoker, quit more than 30 days ago entered on: 06/11/19 Sex
--- OUTSIDE RECORDS SUMMARY | 2024-04-04 10:09 | XMS_ITS | Continuity of Care Document ---
Author Organization [facility] Address [address] [place] [address]- Care Team Providers Care Financial Services Education Consultant Name Role Phone Joey Steele MD Primary Care Physician [phone] Encounter [facility] [place] Date(s): 08/02/20 - 09/01/20 [facility] [address] [place] [address]- [facility] Attending Physician: Not on Staff, Attending MD Allergies, Adverse Reactions, Alerts Substance Reaction [...] Reason: Med Not Available 2Result Comment: [10/30/2014] [id number] 3Admin Note: VIS GIVEN DATED: 04/29/12 4Admin Note: vis given 05/23/11 5Admin Note: VIS GIVEN-DATED 06/07/10 6Admin Note: vis give dated 08/03/09 7Admin Note: VIS GIVEN VIS DATE 05/08/06 Medications acetaminophen 325 mg oral tablet 325 mg, 1, tablet, By Mouth, Every 6 hours, PRN, for 30 days, # 120 tablet, Refills 0, Tot. Refills0, Acute 09/12/20 11:22:00 EST, Pain , Moderate, 08/13/20 11:22:00 EDT, Route to Pharmacy Electronically, [facility], not to exceed 4 gm... Start Date: 08/13/20 Stop Date: 09/12/20 Status: Ordered albuterol 0.083% inhalation solution 3 mL = 2.5 mg, Inhalation, Every 6 hours, # 360 mL, 11 Refills, Maintenance, 08/29/20 20:48:00 EST,Solution, [facility], 152, cm, 08/13/20 13:28:00 EDT, Height, 175.5, kg, 08/09/20 0:18:00 EDT, Dry Weight Start Date: 08/29/20 Stop Date: 08/24/21 Status: Ordered albuterol CFC free 90 mcg/inh inhalation aerosol 2, puffs, Inhalation, 4 times a day, PRN, FOR WHEEZING AND SHORTNESS OF BREATH, # 1 each, Refills 11, Tot. Refills 11, Maintenance, 08/29/20 20:48:00 EST, Route to Pharmacy Electronically, [id number], [facility]... Start Date: 08/29/20 Stop Date: 08/24/21 Status: Ordered Compression Stockings See Instructions, # 2 each, Refills 1, Tot. Refills 1, Maintenance, surgical, calf length 20-30 mm Hg , edema ICD R60., 03/11/20 8:38:00 EDT, Supply, 150, cm, 07/31/19 11:34:00 EDT, Height, 178.4, kg, 06/11/19 21:11:00 EDT, Dry Weight Start Date: 03/11/20 Status: Ordered duloxetine 20 mg oral enteric coated capsule 1 capsule = 20 mg, By Mouth, Daily, # 30 capsule, 0 Refills, Maintenance, 08/13/20 11:24:00 EDT, Capsule, [facility], 152, cm, 08/13/20 7:19:00 EDT, Height, 175.5, kg, 08/09/20 0:18:00 EDT, Dry Weight Start Date: 08/13/20 Stop Date: 09/12/20 Status: Ordered furosemide 40 mg oral tablet 40 mg, 1, tablet, By Mouth, 2 times a day, # 60 tablet, Refills 1, Tot. Refills 1, Maintenance, 08/13/20 11:21:00 EDT, Route to Pharmacy Electronically, [facility], 152, cm, 08/13/20 7:19:00 EDT, Height, 175.5, kg, 08/09/20 0:18:00 EDT,... Start Date: 08/13/20 Stop Date: 10/12/20 Status: Ordered metFORMIN 1000 mg oral tablet 1 tablet = 1,000 mg, By Mouth, 2 times a day, takes once daily for 2 weeks, then increase to BID, #60 tablet, 11 Refills, Maintenance, 12/27/18 16:57:58 EST, Tablet Start Date: 12/27/18 Status: Ordered Oxygen Supplies See Instructions, # 1 application, Maintenance, 2L with exertion dx: hypoxia w/ ambulation, 02/13/19 19:42:21 EDT, Compound Start Date: 02/13/19 Status: Ordered phentermine 37.5 mg oral capsule TK 1 C PO ONCE DAILY Start Date: 07/22/20 Status: Ordered rOPINIRole 1 mg oral tablet 1 tablet = 1 mg, By Mouth, Daily at bedtime, # 30 tablet, 0 Refills, Maintenance, 08/13/20 11:24:00EDT, Tablet, [facility], 152, cm, 08/13/20 7:19:00 EDT, Height, 175.5, kg, 08/09/20 0:18:00 EDT, Dry Weight Start Date: 08/13/20 Status: Ordered Problem List Condition Effective Dates Status Health Status Inform ant Arthritis of knees(Confirmed) Active Asthma(Confirmed) Active Cholesteatoma of ear(Confirmed) Active Complex ovarian cyst - see 2 012 US(Confirmed) Active Oxygen desaturation during s leep 75% in 2011(Confirmed) 2011 Active Hypoxia - desat on ambulatio n 02/10/19 (workup pending)(Confirmed) 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 Tunde Wade [phone], Norma. Dx 06/07/09 Social History Social History Type Response Smoking Status Former smoker, quit more than 30 days ago entered on: 06/11/19 Sex
--- OUTSIDE RECORDS SUMMARY | 2024-04-04 10:09 | XMS_ITS | Continuity of Care Document ---
Author Organization [facility] Address [address] [place] [address]- Care Team Providers Care Wine Cellar Worker Name Role Phone Hazel Valadez DO Primary Care Physician Encounter [facility] [place] Date(s): 03/15/22 - 05/17/[address] [address]- Attending Physician: Not on Staff, Attending MD [...] Reason: Med Not Available 3Result Comment: [10/30/2014] [id number] 4Admin Note: VIS GIVEN DATED: 04/29/12 5Admin Note: vis given 05/23/11 6Admin Note: VIS GIVEN-DATED 06/07/10 7Admin Note: vis give dated 08/03/09 8Admin Note: VIS GIVEN VIS DATE 05/08/06 Medications albuterol 0.083% inhalation solution 3 mL = 2.5 mg, Inhalation, Every 6 hours, # 360 mL, 11 Refills, Maintenance, 08/29/20 20:48:00 EST,Solution, [facility], 152, cm, 08/13/20 13:28:00 EDT, Height, 175.5, kg, 08/09/20 0:18:00 EDT, Dry Weight Start Date: 08/29/20 Stop Date: 08/24/21 Status: Ordered albuterol CFC free 90 mcg/inh inhalation aerosol 2, puffs, Inhalation, 4 times a day, PRN, FOR WHEEZING AND SHORTNESS OF BREATH, # 1 each, Refills 5, Tot. Refills 5, Maintenance, 08/24/21 20:48:00 EDT, Route to Pharmacy Electronically, [id number], [id number]... Start Date: 08/24/21 Stop Date: 02/20/22 Status: Ordered duloxetine 60 mg oral enteric coated capsule 1 capsule = 60 mg, By Mouth, Daily, # 30 capsule, 10 Refills, Maintenance, 10/14/20 15:08:00 EST, EC Capsule, [id number], Partial fill upon patient request if the prescription is fora schedule II opioid drug., 152, cm, 08/13/20 13:28... Start Date: 10/14/20 Status: Ordered furosemide 40 mg oral tablet 40 mg, 1, tablet, By Mouth, 2 times a day, # 180 tablet, Refills 11, Tot. Refills 11, Maintenance, 01/23/22 17:08:00 EDT, Route to Pharmacy Electronically, [facility][id number], 152, cm, 06/17/21 8:41:00 EDT, Height, 175.5, kg, 08/09/20 0:18:00... Start Date: 01/23/22 Stop Date: 01/07/25 Status: Ordered hydrOXYzine hydrochloride 25 mg oral tablet 1 tablet = 25 mg, By Mouth, 4 times a day, PRN for anxiety, # 40 tablet, 1 Refills, Maintenance, 08/28/21 15:25:00 EDT, Tablet, [facility][id number], Partial fill upon patient request if the prescription is for a schedule II opioid drug., 152,... Start Date: 08/28/21 Stop Date: 10/27/21 Status: Ordered meloxicam 15 mg oral tablet 1 tablet = 15 mg, By Mouth, Daily, For knee and back pain, # 30 tablet, 2 Refills, Maintenance, 06/17/21 9:06:00 EDT, Tablet, [facility] #[id number], Partial fill upon patient request if the prescription is for a schedule II opioid drug., 152, cm... Start Date: 06/17/21 Status: Ordered metFORMIN 1000 mg oral tablet 1 tablet = 1,000 mg, By Mouth, 2 times a day, # 60 tablet, 11 Refills, Maintenance, 06/17/21 9:12:00 EDT, Tablet, [facility] #[id number], cancel previous metformin scripts, 152, cm, 06/17/21 [...] 10 Refills, Maintenance, 10/14/20 15:09:00 EST, Tablet, [facility][id number], 152, cm, 08/13/20 13:28:00 EDT, Height, 175.5, [...] 11 Refills, Maintenance, 04/21/22 12:34:00 EDT, Powder, [facility] #[id number], Partial fill upon patient request if the prescription is for a schedule II opioid drug., 1 puffs... Start Date: 04/21/22 Stop Date: 04/16/23 Status: Ordered Vitamin D3 2000 intl units oral capsule 1 capsule = 2,000 International_Units, By Mouth, Daily, # 60 capsule, 2 Refills, Maintenance, 11/02/20 10:14:00 EST, Capsule, [facility] #[id number], Partial fill upon patient request if the [...] Severe obesity(Confirmed) Active DMII(Confirmed) Active 1DrRyder Wade [phone], Norma. Dx 06/07/09 Social History Social History Type Response Smoking Status Former smoker, quit more than 30 days ago entered on: 06/11/19 Sex
--- OUTSIDE RECORDS SUMMARY | 2024-04-04 10:09 | XMS_ITS | Continuity of Care Document ---
Author Organization [facility] Address [address] [place] [address]- Care Team Providers Care Skating Carhop Name Role Phone Joey Steele MD Primary Care Physician [phone] Encounter [facility] Date(s): 03/10/22 - 04/09/22 [facility] [address] [place] [address]- Allergies, Adverse Reactions, Alerts Substance Reaction Severity [...] Reason: Med Not Available 3Result Comment: [10/30/2014] [id number] 4Admin Note: VIS GIVEN DATED: 04/29/12 5Admin Note: vis given 05/23/11 6Admin Note: VIS GIVEN-DATED 06/07/10 7Admin Note: vis give dated 08/03/09 8Admin Note: VIS GIVEN VIS DATE 05/08/06 Medications albuterol 0.083% inhalation solution 3 mL = 2.5 mg, Inhalation, Every 6 hours, # 360 mL, 11 Refills, Maintenance, 08/29/20 20:48:00 EST,Solution, [facility], 152, cm, 08/13/20 13:28:00 EDT, Height, 175.5, kg, 08/09/20 0:18:00 EDT, Dry Weight Start Date: 08/29/20 Stop Date: 08/24/21 Status: Ordered albuterol CFC free 90 mcg/inh inhalation aerosol 2, puffs, Inhalation, 4 times a day, PRN, FOR WHEEZING AND SHORTNESS OF BREATH, # 1 each, Refills 5, Tot. Refills 5, Maintenance, 08/24/21 20:48:00 EDT, Route to Pharmacy Electronically, [id number], [id number]... Start Date: 08/24/21 Stop Date: 02/20/22 Status: Ordered duloxetine 60 mg oral enteric coated capsule 1 capsule = 60 mg, By Mouth, Daily, # 30 capsule, 10 Refills, Maintenance, 10/14/20 15:08:00 EST, EC Capsule, [facility][id number], Partial fill upon patient request if the prescription is fora schedule II opioid drug., 152, cm, 08/13/20 13:28... Start Date: 10/14/20 Status: Ordered furosemide 40 mg oral tablet 40 mg, 1, tablet, By Mouth, 2 times a day, # 180 tablet, Refills 11, Tot. Refills 11, Maintenance, 01/23/22 17:08:00 EDT, Route to Pharmacy Electronically, [facility] #[id number], 152, cm, 06/17/21 8:41:00 EDT, Height, 175.5, kg, 08/09/20 0:18:00... Start Date: 01/23/22 Stop Date: 01/07/25 Status: Ordered hydrOXYzine hydrochloride 25 mg oral tablet 1 tablet = 25 mg, By Mouth, 4 times a day, PRN for anxiety, # 40 tablet, 1 Refills, Maintenance, 08/28/21 15:25:00 EDT, Tablet, [facility] #[id number], Partial fill upon patient request if the prescription is for a schedule II opioid drug., 152,... Start Date: 08/28/21 Stop Date: 10/27/21 Status: Ordered meloxicam 15 mg oral tablet 1 tablet = 15 mg, By Mouth, Daily, For knee and back pain, # 30 tablet, 2 Refills, Maintenance, 06/17/21 9:06:00 EDT, [facility][id number], Partial fill upon patient request if the prescription is for a schedule II opioid drug., 152, cm... Start Date: 06/17/21 Status: Ordered metFORMIN 1000 mg oral tablet 1 tablet = 1,000 mg, By Mouth, 2 times a day, # 60 tablet, 11 Refills, Maintenance, 06/17/21 9:12:00 EDT, [facility] #[id number], cancel previous metformin scripts, 152, cm, 06/17/21 [...] 10 Refills, Maintenance, 10/14/20 15:09:00 EST, Tablet, [facility] #[id number], 152, cm, 08/13/20 13:28:00 EDT, Height, 175.5, kg, 08/09/20 0:18:00 EDT, Dry Weight Start Date: 10/14/20 Status: Ordered Shower Chair See Instructions, # 1 each, Maintenance, Dispense: Bariatric Shower Chair Dx: Morbid Obesity, risk of falls, 06/20/21 19:31:00 EDT, Supply Start Date: 06/20/21 Status: Ordered Symbicort 80mcg/4.5mcg Inhaler 2, puffs, Inhalation, 2 times a day, # 1 each, Refills 0, Tot. Refills 0, Maintenance, 03/09/22 11:58:00 EDT, Aerosol, Route to Pharmacy Electronically, [id number], [facility] #[id number], 152, cm, 03/09/22 11:51:00 EDT,... Start Date: 03/09/22 Status: Ordered Vitamin D3 2000 intl units oral capsule 1 capsule = 2,000 International_Units, By Mouth, Daily, # 60 capsule, 2 Refills, Maintenance, 11/02/20 10:14:00 EST, Capsule, [facility][id number], Partial fill upon patient request if the [...] Severe obesity(Confirmed) Active DMII(Confirmed) Active 1DrRyder Wade [phone], Norma. Dx 06/07/09 Social History Social History Type Response Smoking Status Former smoker, quit more than 30 days ago entered on: 06/11/19 Sex
--- OUTSIDE RECORDS SUMMARY | 2024-04-04 10:09 | XMS_ITS | Continuity of Care Document ---
Author Organization [facility] Address [address] [place] [address]- Care Team Providers Care Metal Expediter Name Role Phone Joey Steele MD Primary Care Physician Encounter [facility] Date(s): 07/01/21 - 08/21/21 [facility] [address] [place] [address]- Attending Physician: Not on Staff, Attending MD [...] Reason: Med Not Available 3Result Comment: [10/30/2014] [id number] 4Admin Note: VIS GIVEN DATED: 04/29/12 5Admin Note: vis given 05/23/11 6Admin Note: VIS GIVEN-DATED 06/07/10 7Admin Note: vis give dated 08/03/09 8Admin Note: VIS GIVEN VIS DATE 05/08/06 Medications albuterol 0.083% inhalation solution 3 mL = 2.5 mg, Inhalation, Every 6 hours, # 360 mL, 11 Refills, Maintenance, 08/29/20 20:48:00 EST,Solution, [facility], 152, cm, 08/13/20 13:28:00 EDT, Height, 175.5, kg, 08/09/20 0:18:00 EDT, Dry Weight Start Date: 08/29/20 Stop Date: 08/24/21 Status: Ordered albuterol CFC free 90 mcg/inh inhalation aerosol 2, puffs, Inhalation, 4 times a day, PRN, FOR WHEEZING AND SHORTNESS OF BREATH, # 1 each, Refills 5, Tot. Refills 5, Maintenance, 08/24/21 20:48:00 EDT, Route to Pharmacy Electronically, [id number], [facility] #[id number]... Start Date: 08/24/21 Stop Date: 02/20/22 Status: Ordered duloxetine 60 mg oral enteric coated capsule 1 capsule = 60 mg, By Mouth, Daily, # 30 capsule, 10 Refills, Maintenance, 10/14/20 15:08:00 EST, EC Capsule, [facility][id number], Partial fill upon patient request if the prescription is fora schedule II opioid drug., 152, cm, 08/13/20 13:28... Start Date: 10/14/20 Status: Ordered furosemide 40 mg oral tablet 40 mg, 1, tablet, By Mouth, 2 times a day, # 60 tablet, Refills 10, Tot. Refills 10, Maintenance, 10/14/20 15:09:00 EST, Route to Pharmacy Electronically, [facility] #[id number], 152, cm, 08/13/20 13:28:00 EDT, Height, 175.5, kg, 08/09/20 0:18:00... Start Date: 10/14/20 Stop Date: 09/09/21 Status: Ordered meloxicam 15 mg oral tablet 1 tablet = 15 mg, By Mouth, Daily, For knee and back pain, # 30 tablet, 2 Refills, Maintenance, 06/17/21 9:06:00 EDT, Tablet, [facility] #[id number], Partial fill upon patient request if the prescription is for a schedule II opioid drug., 152, cm... Start Date: 06/17/21 Status: Ordered metFORMIN 1000 mg oral tablet 1 tablet = 1,000 mg, By Mouth, 2 times a day, # 60 tablet, 11 Refills, Maintenance, 06/17/21 9:12:00 EDT, Tablet, [facility] #[id number], cancel previous metformin scripts, 152, cm, 06/17/21 [...] 10 Refills, Maintenance, 10/14/20 15:09:00 EST, Tablet, [facility] #[id number], 152, cm, 08/13/20 13:28:00 EDT, Height, 175.5, [...] 2 Refills, Maintenance, 11/02/20 10:14:00 EST, Capsule, [email or web address][id number], Partial fill upon patient request if the [...] Active Osteoarthritis(Confirmed) Active DMII(Confirmed) Active 1DrRyder Wade [phone], Norma. Dx 06/07/09 Social History Social History Type Response Smoking Status Former smoker, quit more than 30 days ago entered on: 06/11/19 Sex
--- OUTSIDE RECORDS SUMMARY | 2024-04-04 10:09 | XMS_ITS | Continuity of Care Document ---
Author Organization [facility] Address [address] [place] [address]- Care Team Providers Care Med Aide Name Role Phone Joey Steele MD Primary Care Physician Encounter [facility] [place] Date(s): 03/09/20 - 04/14/20 [facility] [address] [place] [id number]- [facility] Attending Physician: Jessika MILLER, Maximus Page Allergies, Adverse Reactions, Alerts Substance Reaction Severity Status sulfamethoxazole itch Active Immunizations Given and Recorded Vaccine Date Status Refusal Reason influenza virus vaccine, inactivated 08/14/16 Give n influenza virus vaccine, inactivated 11/25/15 Give n influenza virus vaccine, inactivated 1 10/30/14 Gi erwin influenza virus vaccine, inactivated 2 06/20/12 Gi erwin influenza virus vaccine, inactivated 3 09/14/11 Gi erwin influenza virus vaccine, inactivated 4 02/06/11 Gi erwin pneumococcal 23-valent vaccine 5 06/30/11 Given diphtheria-tetanus toxoids (DT) 6 06/15/09 Given 1Result Comment: [10/30/2014] [id number] 2Admin Note: VIS GIVEN DATED: 04/29/12 3Admin Note: vis given 05/23/11 4Admin Note: VIS GIVEN-DATED 06/07/10 5Admin Note: vis give dated 08/03/09 6Admin Note: VIS GIVEN VIS DATE 05/08/06 Medications albuterol 0.083% inhalation solution 3 mL = 2.5 mg, Inhalation, Every 6 hours, # 120 each, 3 Refills, Maintenance, 06/12/19 9:38:47 EDT,Solution Start Date: 06/12/19 Status: Ordered albuterol CFC free 90 mcg/inh inhalation aerosol 2, puffs, Inhalation, 4 times a day, PRN, FOR WHEEZING AND SHORTNESS OF BREATH, # 1 each, Refills 11, Tot. Refills 11, Maintenance, 11/22/18 12:58:17 EST, Route to Pharmacy Electronically, [id number], [facility] Start Date: 11/22/18 Stop Date: 11/17/19 Status: Ordered Compression Stockings See Instructions, # 2 each, Refills 1, Tot. Refills 1, Maintenance, surgical, calf length 20-30 mm Hg , edema ICD R60., 03/11/20 8:38:00 EDT, Supply, 150, cm, 07/31/19 11:34:00 EDT, Height, 178.4, kg, 06/11/19 21:11:00 EDT, Dry Weight Start Date: 03/11/20 Status: Ordered meloxicam 7.5 mg oral tablet 1 tablet = 7.5 mg, By Mouth, Daily, with food, prn pain, do not take with ibuprofen or naproxen, # 30 tablet, 1 Refills, Maintenance, 03/11/20 8:43:00 EDT, Tablet, [facility] #[id number], 150, cm, 07/31/19 11:34:00 EDT, Height, 178.4, kg, ... 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 Dx 06/07/09 Social History Social History Type Response Smoking Status Former smoker, quit more than 30 days ago entered on: 06/11/19 Sex
--- OUTSIDE RECORDS SUMMARY | 2024-04-04 10:09 | XMS_ITS | Continuity of Care Document ---
Author Organization [facility] Address [address] [place] [address]- Care Team Providers Care Transfusion Nurse Name Role Phone Allyson ARMSTRONG Hazel Primary Care Physician [facility]counter [facility] Date(s): 06/13/23 - 07/13/23 [facility] [address], [place] [address] Allergies, Adverse Reactions, Alerts Substance Reaction Severity [...] SARS-CoV-2 (COVID-19) mRNA BNT-162b2 vac 07/01/21 Given pneumococcal 23-valent vaccine 6 06/30/11 Given tetanus/diphtheria/pertussis, acel(Tdap) 10/06/10 Recorded diphtheria-tetanus toxoids (DT) 7 06/15/09 Given tetanus-diphtheria toxoids (Td) 12/23/08 Recorded 1Early/Late Reason: Med Not Available 2Result Comment: [10/30/2014] [id number] 3Admin Note: VIS GIVEN DATED: 04/29/12 4Admin Note: vis given 05/23/11 5Admin Note: VIS GIVEN-DATED 06/07/10 6Admin Note: vis give dated 08/03/09 7Admin Note: VIS GIVEN VIS DATE 05/08/06 Medications albuterol 0.083% inhalation solution 3 mL = 2.5 mg, Inhalation, Every 6 hours, # 360 mL, 11 Refills, Maintenance, 07/17/22 11:50:00 EDT,Solution, [facility] #[id number], 152, cm, 07/12/22 13:07:00 EDT, Height, 175.5, [...] EDT, Supply Start Date: 07/18/22 Status: Ordered famotidine 20 mg oral tablet 20 mg, 1, tablet, By Mouth, Daily, # 7 tablet, Refills 0, Tot. Refills 0, Maintenance, 03/31/23 21:58:00 EDT, Route to Pharmacy Electronically, [facility] #[id number], Partial fill upon patient request if the prescription is for a schedule II opi... Start Date: 03/31/23 Stop Date: 04/07/23 Status: Ordered Freestyle jorden 2 sensors 14 [...] tablet, Refills 11, Tot. Refills 11, Maintenance, 01/07/25 17:08:00 EDT, Route to Pharmacy Electronically, [facility] #[id number], 149.86, cm, 02/09/23 15:52:00 EDT, Height, 172.3, kg, 11/26/22 5:4... Start Date: 01/07/25 Stop Date: 12/23/27 Status: Ordered furosemide 40 mg oral tablet 40 mg, 1, tablet, By Mouth, 2 times a day, for 90 days, # 180 tablet, Refills 11, Tot. Refills 11, Hard Stop 01/07/25 17:08:00 EDT, 01/23/22 17:08:00 EDT, Route to Pharmacy Electronically, [facility] #[id number], 152, cm, 06/17/21 8:41:00 EDT, He... Start Date: 01/23/22 Stop Date: 01/07/25 Status: Ordered gabapentin 100 mg oral capsule 100 mg, 1, capsule, By Mouth, 3 times a day, # 90 capsule, Refills 0, Tot. Refills 0, Maintenance, 12/14/22 17:21:00 EST, Route to Pharmacy Electronically, [facility] #[id number], Partial fill upon patient request if the prescription is for a kelly... Start Date: 12/14/22 Status: Ordered ibuprofen 800 mg oral tablet 800 mg, 1, tablet, By Mouth, 3 times a day, for pain with food or milk, # 30 tablet, Refills 0, Tot. Refills 0, Maintenance, 02/09/23 17:06:00 EDT, Route to Pharmacy Electronically, [facility] #[id number], Partial fill upon patient request if th... Start Date: 02/09/23 Status: Ordered metFORMIN 1000 mg oral tablet 1 tablet = 1,000 mg, By Mouth, 2 times a day, # 60 tablet, 11 Refills, Maintenance, 07/12/22 13:42:00 EDT, Tablet, [facility] #[id number], cancel previous metformin scripts, 152, cm, 07/12/22 13:07:00 EDT, Height, 175.5, kg, 08/09/20 0:18:00 EDT,... Start Date: 07/12/22 Status: Ordered multivitamin Multiple Vitamins oral capsule 1 capsule, By Mouth, Daily, # 30 capsule, 0 Refills, Maintenance, 03/23/23 7:59:00 EDT, Capsule, [facility] #[id number], Partial fill upon patient request if the prescription is for a schedule II opioid drug., 1 capsule By Mouth Daily, 149.86, cm... Start Date: 03/23/23 Status: Ordered Oxygen Supplies See Instructions, # [...] 11 Refills, Maintenance, 04/21/22 12:34:00 EDT, Powder, [facility] #[id number], Partial fill upon patient request if the prescription is for a schedule II opioid drug., 1 puffs... Start Date: 04/21/22 Stop Date: 04/16/23 Status: Ordered Trulicity Pen 0.75 mg/0.5 mL subcutaneous solution 0.5 mL = 0.75 mg, Subcutaneous Injection, Every week, rotate injection sites, # 2 mL, 3 Refills, Maintenance, 07/12/22 14:01:00 EDT, Solution, [facility] #[id number], Partial fill upon patient request if the prescription is for a schedule II opio... Start Date: 07/12/22 Status: Ordered Vitamin D3 2000 intl units oral capsule 1 capsule = 2,000 International_Units, By Mouth, Daily, # 60 capsule, 2 Refills, Maintenance, 07/17/22 16:56:00 EDT, Capsule, [facility] #[id number], Partial fill upon patient request if the [...] obesity Confirmed Active DMII Confirmed Active 1DrRyder Wade [phone], Norma. Dx 06/07/09 Social History Social History Type Response Smoking Status Former smoker, quit more than 30 days ago entered on: 06/11/19 Sex Patient Care team information Care Team Personnel Name: Jayna Sandhu RN Position: S RN Member Role: Primary Care Nurse Name: Maty Valencia RN Position: S RN Member Role: Primary Care Nurse Name: Roger Peña RN Position: [facility] RN Supv Member Role: Primary Care Nurse Name: Mihir Jackson RN Position: [facility] RN Member Role: Primary Care Nurse Name: Danya Roman RN Position: [facility] SN RN Member Role: Primary Care Nurse Name: Kem RNAshley Position: [facility] ED RN W/OE and Tasks Member Role: Primary Care Nurse Name: Becca Enrique RN Position: [facility] RN Member Role: Primary Care Nurse Name: Zuly THOMSON) Elma Position: [facility] RN Member Role: Primary Care Nurse Name: Amanda Huerta RN Position: [facility] RN Member Role: Primary Care Nurse Name: Yessica Stock Position: [facility] RN Member Role: Primary Care Nurse Name: Hazel Valadez DO Position: [facility] Resident Member Role: PCP Address: Address: [address] [place] [address] Adult [place], [place] [address] Name: Radha Bravo RN Position: [facility] RN Member Role: Primary Care Nurse Name: Juli Calles RN Position: [facility] RN Member Role: Primary Care Nurse Care Team Related Persons Name: LINDA ZULEIMA Address: [place] [address] Name: LUCITA TEMPLE Address: home Name: LARA TEMPLE Name: JUSTIN HINES
--- OUTSIDE RECORDS SUMMARY | 2024-04-04 10:09 | XMS_ITS | Continuity of Care Document ---
Author Organization [facility] Address [address] [place] [address]- Care Team Providers Care Infantry Operations Specialist Name Role Phone Hazel Valadez DO Primary Care Physician [phone] Encounter [facility] [id number] Date(s): 08/16/22 - 09/15/[address] [address]- Attending Physician: Vannesa Paulino Admitting Physician: AdmtrVannesa [...] Reason: Med Not Available 3Result Comment: [10/30/2014] [id number] 4Admin Note: VIS GIVEN DATED: 04/29/12 5Admin Note: vis given 05/23/11 6Admin Note: VIS GIVEN-DATED 06/07/10 7Admin Note: vis give dated 08/03/09 8Admin Note: VIS GIVEN VIS DATE 05/08/06 Medications albuterol 0.083% inhalation solution 3 mL = 2.5 mg, Inhalation, Every 6 hours, # 360 mL, 11 Refills, Maintenance, 07/17/22 11:50:00 EDT,Solution, [facility] #[id number], 152, cm, 07/12/22 13:07:00 EDT, Height, 175.5, [...] 01/23/22 17:08:00 EDT, Route to Pharmacy Electronically, [facility] #[id number], 152, cm, 06/17/21 8:41:00 EDT, Height, 175.5, kg, 08/09/20 0:18:00... Start Date: 01/23/22 Stop Date: 01/07/25 Status: Ordered gabapentin 100 mg oral capsule 100 mg, 1, capsule, By Mouth, 3 times a day, # 90 capsule, Refills 0, Tot. Refills 0, Maintenance, 07/12/22 14:00:00 EDT, Route to Pharmacy Electronically, [facility] #[id number], Partial fill upon patient request if the prescription is for a kelly... Start Date: 07/12/22 Status: Ordered lisinopril 5 mg oral tablet 5 mg, 1, tablet, By Mouth, Daily, # 30 tablet, Refills 2, Tot. Refills 2, Maintenance, 07/17/22 17:03:00 EDT, Route to Pharmacy Electronically, [facility] #[id number], Please disregard 10mg dosing, 152, cm, 07/12/22 13:07:00 EDT, Height, 175.5, k... Start Date: 07/17/22 Status: Ordered metFORMIN 1000 mg oral tablet 1 tablet = 1,000 mg, By Mouth, 2 times a day, # 60 tablet, 11 Refills, Maintenance, 07/12/22 13:42:00 EDT, Tablet, [facility] #[id number], cancel previous metformin scripts, 152, cm, 07/12/22 13:07:00 EDT, Height, 175.5, kg, 08/09/20 0:18:00 EDT,... Start Date: 07/12/22 Status: Ordered nitrofurantoin macrocrystals-monohydrate 100 mg oral capsule TAKE 1 CAPSULE BY MOUTH TWICE DAILY FOR 1 MORE DOSE TO COMPLETE 5 DAYS TOTAL with food Start Date: 09/07/22 Status: Ordered Oxygen Supplies See Instructions, # 1 application, Maintenance, 2L with exertion dx: hypoxia w/ ambulation, 02/13/19 19:42:21 EDT, Compound Start Date: 02/13/19 Status: Ordered phenazopyridine 200 mg oral tablet 200 mg, 1, tablet, By Mouth, 3 times a day after meals, PRN, with food, # 6 tablet, Refills 0, Tot.Refills 0, Maintenance, as needed for urinary discomfort, 09/01/22 15:06:00 EDT, Route to Pharmacy Electronically, [facility] #[id number], Partial... Start Date: 09/01/22 Status: Ordered rolling [...] 11 Refills, Maintenance, 04/21/22 12:34:00 EDT, Powder, [facility] #[id number], Partial fill upon patient request if the prescription is for a schedule II opioid drug., 1 puffs... Start Date: 04/21/22 Stop Date: 04/16/23 Status: Ordered Trulicity Pen 0.75 mg/0.5 mL subcutaneous solution 0.5 mL = 0.75 mg, Subcutaneous Injection, Every week, rotate injection sites, # 2 mL, 3 Refills, Maintenance, 07/12/22 14:01:00 EDT, Solution, [facility] #[id number], Partial fill upon patient request if the prescription is for a schedule II opio... Start Date: 07/12/22 Status: Ordered Vitamin D3 2000 intl units oral capsule 1 capsule = 2,000 International_Units, By Mouth, Daily, # 60 capsule, 2 Refills, Maintenance, 07/17/22 16:56:00 EDT, Capsule, [facility] #[id number], Partial fill upon patient request if the [...] desaturation during sleep 75% in 2012 Confirmed 2011 Active Heart failure with preserved [...] Confirmed Active DMII Confirmed Active 1DrRyder Wade [phone], Norma. Dx 06/07/09 Social History Social History Type Response Smoking Status Former smoker, quit more than 30 days ago entered on: 06/11/19 Sex Patient Care team information Care Team Personnel Name: Maty Valencia RN Position: [facility] RN Member Role: Primary Care Nurse Name: Danya Roman RN Position: [facility] AMB Nurse Member Role: Primary Care Nurse Name: Ashley Brownlee RN Position: [facility] ED RN W/OE and Tasks Member Role: Primary Care Nurse Name: Becca Enrique RN Position: [facility] RN Member Role: Primary Care Nurse Name: Zuly LouiseINSTR) Elma Position: [facility] RN Member Role: Primary Care Nurse Name: Amanda Huerta RN Position: [facility] RN Member Role: Primary Care Nurse Name: Hazel Valadez DO Position: [facility] Resident Member Role: PCP Address: Address: [address] [place] [address] [place] [address]- Name: Juli Calles RN Position: [facility] RN Member Role: Primary Care Nurse Care Team Related Persons Name: ZULEIMA MCKEON Address: [place] [address] Name: LUCITA TEMPLE Address: home [address] [address] Name: LARA TEMPLE Address: home [address] [place] [address] Name: JUSTIN HINES
--- OUTSIDE RECORDS SUMMARY | 2024-04-04 10:09 | XMS_ITS | Continuity of Care Document ---
Author Organization [facility] Address [address] [place] [address]- Care Team Providers Care Director Erp Name Role Phone Joey Steele MD Primary Care Physician [phone] [facility]counter [facility] Date[facility]s): 08/08/20 - 08/13/[address] [address]- [facility] Discharge Disposition: A-Transfer VNA/Home Health Attending Physician: Delmer Snell MD Admitting Physician: Jayme Kidd DO Referring Physician: Not on Staff, Referring MD Allergies, Adverse Reactions, Alerts Substance Reaction [...] Reason: Med Not Available 2Result Comment: [10/30/2014] [id number] 3Admin Note: VIS GIVEN DATED: 04/29/12 4Admin [...] 08/13/20 11:22:00 EDT, Route to Pharmacy Electronically, [facility], not to exceed 4 gm... Start Date: 08/13/20 Stop Date: 09/12/20 Status: Ordered albuterol 0.083% inhalation solution 3 mL = 2.5 mg, Inhalation, Every 6 hours, # 360 mL, 11 Refills, Maintenance, 07/28/20 7:41:00 EDT, Solution, [facility] #[id number], 150, cm, 07/31/19 11:34:00 EDT, Height, 178.4, kg, 06/11/19 21:11:00 EDT, Dry Weight Start Date: 07/28/20 Stop Date: 07/23/21 Status: Ordered albuterol CFC free 90 mcg/inh inhalation aerosol 2, puffs, Inhalation, 4 times a day, PRN, FOR WHEEZING AND SHORTNESS OF BREATH, # 1 each, Refills 11, Tot. Refills 11, Maintenance, 11/22/18 12:58:17 EST, Route to Pharmacy Electronically, [id number], [facility] Start Date: 11/22/18 Stop Date: 11/17/19 [...] 0 Refills, Maintenance, 08/13/20 11:24:00 EDT, [facility], 152, cm, 08/13/20 7:19:00 EDT, Height, 175.5, kg, 08/09/20 0:18:00 EDT, Dry Weight Start Date: 08/13/20 Stop Date: 09/12/20 Status: Ordered furosemide 40 mg oral tablet 40 mg, 1, tablet, By Mouth, 2 times a day, # 60 tablet, Refills 1, Tot. Refills 1, Maintenance, 08/13/20 11:21:00 EDT, Route to Pharmacy Electronically, [facility], 152, cm, 08/13/20 7:19:00 EDT, [...] tablet, 0 Refills, Maintenance, 08/13/20 11:24:00EDT, Tablet, [facility], 152, cm, 08/13/20 7:19:00 EDT, [...] home CPAP(Confirmed) Active DMII(Confirmed) Active 1DrRyder Wade [phone], Norma. Dx 06/07/09 Results Radiology Reports * Exam Date Time Procedure Performing Provider Status 08/08/20 12:42 PM Chest Portable [facility]well; Aut h (Verified) Notes: (Chest Portable) Reason For Exam: Shortness of Breath RESULT: Chest Portable Chest Portable Hx of Present Illness: Pt reports body aches, weakness, headache, feeling shaky , chest pain pressure, epigastric pain, and SOB x 2-3 weeks.; Reason: Shortness of Breath; Clinical Question(s): Pneumonia COMPARISON: 06/11/2019 FINDINGS: LINES AND TUBES: None. LUNGS AND PLEURA: Diffuse increased haziness of the right greater than left lungs which may be in part due to technical factors including body habitus. No pneumothorax. HEART, MEDIASTINUM AND MARY: Prominent BONES AND SOFT TISSUES: No acute abnormality. IMPRESSION: Diffuse increased haziness of the right greater than left lungs likely accentuated by technical factors including body habitus. Differential includes pulmonary edema or atypical pneumonia. WSN: [id number] Ordering Physician: Romulo Anguiano Dictated By: Jose L Odell MD Dictated Date/Time: 08/08/20 12:50 p Reviewed By: Jose L Odell MD Signed By: Jose L Odell MD Signed Date/Time: 08/08/20 12:50 pm Transcribed By: JACOB Transcribed Date/Time: 08/08/20 12:44 pm Vital Signs Most recent to oldest [Reference Range]: 1 2 3 Height 152 cm (08/13/20 1:28 PM) 152 cm (08/13/20 7:19 AM) 152 cm (08/13/20 5:22 AM) Weight 170.0 kg (08/13/20 5:21 AM) 171.1 kg (08/12/20 6:58 AM) 174.0 kg (08/11/20 6:23 AM) Oxygen Saturation [94-100 %] 92 % *L* (08/13/20 1:28 PM) 93 % *L* (08/13/20 7:19 AM) 90 % *L* (08/13/20 5:22 AM) Pulse Rate [55-90 bpm] 85 bpm (08/13/20 1:28 PM) 81 bpm (08/13/20 7:19 AM) 78 bpm (08/13/20 5:22 AM) Body Mass Index [18.5-24.99] 76.74 *>HHI* (08/09/20 12:18 AM) Blood Pressure [90-138/55-84 mm Hg] 130/100mm Hg (08/13/20 1:28 PM) 136/81mm Hg (08/13/20 7:19 AM) 110/52mm Hg (08/13/20:22 AM) Respiratory Rate [16-30 br/min] 18 br/min (08/13/20 1:28 PM) 20 br/min (08/13/20 7:19 AM) 18 br/min (08/13/20 6:32 AM) Temperature [96.8-100.4 DegF] 97.2 DegF (08/13/20 1:28 PM) 97.3 DegF (08/13/20 7:19 AM) 97.4 DegF (08/13/20:22 AM) Liters per Minute 3 L/min (08/13/20 1:28 PM) 3 L/min (08/13/20 7:19 AM) 3 L/min (08/13/20 5:22 AM) Mode of Delivery (Oxygen) Nasal cannula (08/13/20 1:28 PM) Nasal cannula (08/13/20:19 AM) Nasal cannula (08/13/20 5:22 AM) Blood pressure sites Arm, right (08/13/20 1:28 PM) Arm, left (08/13/20 7:19 AM) Arm, right (08/13/20 5:22 AM) Temperature Route Temporal (08/13/20 1:28 PM) Temporal (08/13/20 7:19 AM) Temporal (08/13/20 5:22 AM) Dry Weight 175.5 kg (08/09/20 12:18 AM) 175.1 kg (08/08/20 3:47 PM) 175.1 kg (08/08/20 11:37 AM) Weight Obtained Via Bed scale (08/11/20 6:23 AM) Bed scale (08/10/20 6:38 AM) Dry Weight Obtained Via Patient/family s tated (08/08/20 11:37 AM) Social History Social History Type Response Smoking Status Former smoker, quit more than 30 days ago entered on: 06/11/19 Sex
--- OUTSIDE RECORDS SUMMARY | 2024-04-04 10:10 | XMS_ITS | Continuity of Care Document ---
Author Organization [facility] Address [address] [place] [address]- Care Team Providers Care Kiln Puller Name Role Phone Marta Valadez DOha Primary Care Physician [phone] Encounter [facility] Date(s): 12/06/23 - 01/05/24 [facility] [address] [place] [id number] Allergies, Adverse Reactions, Alerts Substance [...] Reason: Med Not Available 2Result Comment: [10/30/2014] [id number] 3Admin Note: VIS GIVEN DATED: 04/29/12 4Admin Note: vis given 05/23/11 5Admin Note: VIS GIVEN-DATED 06/07/10 6Admin Note: vis give dated 08/03/09 7Admin Note: VIS GIVEN VIS DATE 05/08/06 Medications Advair Diskus 250 mcg-50 mcg inhalation powder 1, puffs, Inhalation, 2 times a day, # 28 each, Refills 0, Tot. Refills 0, Maintenance, 09/06/23 14:10:00 EST, Powder, Route to Pharmacy Electronically, [id number], [facility] #[id number], 153, cm, 08/19/23 2:04:00 EDT,... Start Date: 09/06/23 Status: Ordered albuterol 0.083% inhalation solution 3 mL = 2.5 mg, Inhalation, Every 6 hours, # 360 mL, 11 Refills, Maintenance, 09/06/23 8:33:00 EST, Solution, [facility] #[id number], 153, cm, 08/19/23 2:04:00 EDT, Height, 171.8, kg, 08/19/23 2:04:00 EDT, Dry Weight Start Date: 09/06/23 Stop Date: 08/31/24 Status: Ordered bariatric walker bariatric walker, See [...] use to check bs daily dx e11.9, 09/24/23 9:06:00 EST, Supply, 153, cm, 09/16/23 13:33:00 EST, Height, 176, kg, 09/16/23 13:33:00EST, Dry Weight Start Date: 09/24/23 Status: Ordered Freestyle Lite Monitor See Instructions, # 1 each, Maintenance, use to check bs daily dx E11.9, 07/19/22 9:10:00 EDT, Supply, 152, cm, 07/12/22 13:07:00 EDT, Height, 175.5, kg, 08/09/20 0:18:00 EDT, Dry Weight Start Date: 07/19/22 Status: Ordered Freestyle Lite Test Strips See Instructions, # 30 each, Refills 11, Tot. Refills 11, Maintenance, use to check bs daily dx E11.9, 09/24/23 9:06:00 EST, Supply, 153, cm, 09/16/23 13:33:00 EST, Height, 176, kg, 09/16/23 13:33:00EST, Dry Weight Start Date: 09/24/23 Status: Ordered Freestyle Precision [place] Blood Glucose [...] 01/07/25 17:08:00 EDT, Route to Pharmacy Electronically, [facility] #[id number], 149.86, cm, 02/09/23 15:52:00 EDT, Height, 172.3, kg, 11/26/22 5:4... Start Date: 01/07/25 Stop Date: 12/23/27 Status: Ordered gabapentin 100 mg oral capsule 100 mg, 1, capsule, By Mouth, 3 times a day, # 90 capsule, Refills 0, Tot. Refills 0, Maintenance, 12/14/22 17:21:00 EST, Route to Pharmacy Electronically, [facility] #[id number], Partial fill upon patient request if the prescription is for a kelly... Start Date: 12/14/22 Status: Ordered metFORMIN 1000 mg oral tablet 1 tablet = 1,000 mg, By Mouth, 2 times a day, # 60 tablet, 11 Refills, Maintenance, 09/24/23 9:06:00 EST, Tablet, [facility] #[id number], cancel previous metformin scripts, 153, cm, 09/16/23 13:33:00 EST, Height, 176, kg, 09/16/23 13:33:00 EST, D... Start Date: 09/24/23 Status: Ordered multivitamin Multiple Vitamins oral capsule 1 capsule, By Mouth, Daily, # 30 capsule, 0 Refills, Maintenance, 09/06/23 8:33:00 EST, Capsule, [facility] #[id number], Partial fill upon patient request if the prescription is for a schedule II opioid drug., 1 capsule By Mouth Daily, 153, cm, 1... Start Date: 09/06/23 Status: Ordered Oxygen Supplies See Instructions, # 1 each, Refills 11, Tot. Refills 11, Maintenance, 2-3 L VIA NASAL CANNULA USE NIGHTLY WITH CPAP RESPIRATORY FAILURE HYPOXIA REBEL G47.33 R09.02, 07/24/23 13:12:00 EDT, Compound Start Date: 07/24/23 Status: Ordered rolling walker rolling walker, See Instructions, # 1 each, Refills 0, Tot. Refills 0, Maintenance, dx: CHF, REBEL, obesity, decrease strength and mobility, 09/07/22 10:45:00 EST, Supply Start Date: 09/07/22 Status: Ordered Shower Chair See Instructions, # 1 each, Maintenance, bariatric chair. Pt unable to stand for duration of showerd/t M19.90, N17.10 G47.34,R09.02,R60.0,E66.01,M77.9,E11.9, 09/18/23 16:05:00 EST, Supply Start Date: 09/18/23 Status: Ordered Vitamin D3 2000 intl units oral capsule 1 capsule = 2,000 International_Units, By Mouth, Daily, # 60 capsule, 2 Refills, Maintenance, 09/24/23 9:06:00 EST, Capsule, [facility] #[id number], Partial fill upon patient request if the prescription is for a schedule II opioid drug., 153, cm,... Start Date: 09/24/23 Status: Ordered Walker See Instructions, # 1 [...] Confirmed Active DMII Confirmed Active 1DrRyder Wade [phone], Norma. Dx 06/07/09 Social History Social History Type Response Smoking Status Former smoker, quit more than 30 days ago entered on: 06/11/19 Sex Patient Care team information Care Team Personnel Name: Becca Crain RN Position: S RN Member Role: Primary Care Nurse Name: Jayna Sandhu RN Position: S RN Member Role: Primary Care Nurse Name: Erik RNMaty Position: [facility] RN Member Role: Primary Care Nurse Name: Roger Peña RN Position: [facility] RN Supv Member Role: Primary Care Nurse Name: Mihir Jackson RN Position: [facility] RN Member Role: Primary Care Nurse Name: Danya Roman RN Position: [facility] SN RN Member Role: Primary Care Nurse Name: Kem RNAshley Position: [facility] ED RN W/OE and Tasks Member Role: Primary Care Nurse Name: Amanda Huerta RN Position: S RN Member Role: Primary Care Nurse Name: Yessica Stock RN Position: [facility] RN Member Role: Primary Care Nurse Name: Hazel Valadez DO Position: [facility] Resident Member Role: PCP Address: Address: [address] [place] [address] Name: Juli Calles RN Position: [facility] RN Member Role: Primary Care Nurse Care Team Related Persons Name: ZULEIMA MCKEON Address: [place] [address] Name: ZAYRA STREETER Address: home [address] [address] Name: LUCITA TEMPLE Address: home Name: LARA TEMPLE Address: home [address] [address] Name: JUSTIN HINES
--- OUTSIDE RECORDS SUMMARY | 2024-04-04 10:10 | XMS_ITS | Continuity of Care Document ---
Author Organization [facility] ter Address [address] [place] [id number]- Care Team Providers Care Feather Baler Name Role Phone Hazel Valadez DO Primary Care Physician Encounter [facility] Date(s): 02/13/24 - 02/22/[address] [address]- Encounter Diagnosis Rxefj-pj-pkcgmis hypoxic respiratory failure(Final) - 02/14/24 Leukocytosis(Final) - 02/14/24 Hypoxia(Final) - 02/13/24 Leukocytosis(Final) - 02/13/24 Discharge Disposition: A-Transfer VNA/Home Health Attending Physician: Blake MILLER, Jose Raul James Admitting Physician: Daniel MILLER, Willard Rubio Referring Physician: Not on Staff, Referring MD [...] Reason: Med Not Available 2Result Comment: [10/30/2014] [id number] 3Admin Note: VIS GIVEN DATED: 04/29/12 4Admin Note: vis given 05/23/11 5Admin Note: VIS GIVEN-DATED 06/07/10 6Admin Note: vis give dated 08/03/09 7Admin Note: VIS GIVEN VIS DATE 05/08/06 Medications Advair Diskus 250 mcg-50 mcg inhalation powder 1, puffs, Inhalation, 2 times a day, # 28 each, Refills 0, Tot. Refills 0, Maintenance, 09/06/23 14:10:00 EST, Powder, Route to Pharmacy Electronically, [id number], [facility] #[id number], 153, cm, 08/19/23 2:04:00 EDT,... Start Date: 09/06/23 Status: Ordered albuterol 0.083% inhalation solution 3 mL = 2.5 mg, Inhalation, Every 6 hours, # 360 mL, 11 Refills, Maintenance, 09/06/23 8:33:00 EST, Solution, [facility] #[id number], 153, cm, 08/19/23 2:04:00 EDT, Height, 171.8, [...] EST, Supply Start Date: 09/07/22 Status: Ordered BIPAP SUPPLIES BIPAP SUPPLIES, See Instructions, # 1 each, Refills 11, Tot. Refills 11, Maintenance, BIPAP SUPPLIES REBEL G47.33, 02/07/24 8:45:00 EDT, Supply Start Date: 02/07/24 Status: Ordered BP monitor and cuff BP [...] times a day, # 180 tablet, Refills 1, Tot. Refills 1, Maintenance, 12/23/27 17:08:00 EST, Route to Pharmacy Electronically, [facility] #[id number], 153, cm, 12/03/23 14:50:00 EST, Height, 176, kg, 09/16/23 13:33:00 E... Start Date: 12/23/27 Stop Date: 12/07/30 Status: Ordered gabapentin 300 mg oral capsule 300 mg, 1, capsule, By Mouth, 2 times a day, for back pain, # 60 capsule, Refills 5, Tot. Refills 5, Maintenance, 01/24/24 14:15:00 EDT, Route to Pharmacy Electronically, [facility] #[id number],Partial fill upon patient request if the prescripti... Start Date: 01/24/24 Status: Ordered ibuprofen 800 mg oral tablet 800 mg, 1, tablet, By Mouth, 3 times a day, prn pain, take with food, # 45 tablet, Refills 0, Tot. Refills 0, Maintenance, 01/18/24 10:01:00 EDT, Route to Pharmacy Electronically, [facility] #[id number], Partial fill upon patient request if the p... Start Date: 01/18/24 Status: Ordered Insulin Glargine Prefilled Pen 100 units/mL subcutaneous solution = 20 units, Subcutaneous Injection, Daily at bedtime, # 15 mL, 0 Refills, Maintenance, 02/22/24 10:15:00 EDT, [facility], Partial fill upon patient request if the prescription is for a schedule II opioid drug., 153, cm, 01/24/24 13:42:00... Start Date: 02/22/24 Status: Ordered multivitamin Multiple Vitamins oral capsule 1 capsule, By Mouth, Daily, # 30 capsule, 0 Refills, Maintenance, 09/06/23 8:33:00 EST, Capsule, [facility] #[id number], Partial fill upon patient request if the [...] EDT, Compound Start Date: 07/24/23 Status: Ordered Pen [place], 32 G x 4 mm BD Ultra Fine III See instructions, # 90 each, Refills 0, Tot. Refills 0, Maintenance, use daily for insulin administration, 02/22/24 11:30:00 EDT, Supply, 153, cm, 01/24/24 13:42:00 EDT, Height, 176, kg, 09/16/23 13:33:00 EST, Dry Weight Start Date: 02/22/24 Stop Date: 05/22/24 Status: Ordered rolling walker rolling walker, See [...] EST, Supply Start Date: 09/18/23 Status: Ordered Shower Grab Bars Shower Grab Bars, See Instructions, # 2 each, Refills 0, Tot. Refills 0, Maintenance, I50.30 M19.90, 02/07/24 9:52:00 EDT, Supply Start Date: 02/07/24 Status: Ordered Vitamin D3 2000 intl units oral capsule 1 capsule = 2,000 International_Units, By Mouth, Daily, # 60 capsule, 2 Refills, Maintenance, 09/24/23 9:06:00 EST, Capsule, [facility] #[id number], Partial fill upon patient request if the [...] Severe obesity Confirmed Active DMII Confirmed Active 1Dcolby Wade [phone], Norma. Dx 06/07/09 Results Radiology Reports * Exam Date Time Procedure Performing Provider Status 02/17/24 12:[address] Angio Chest Mely Montiel; Auth (Verified) Notes: (CT Angio Chest) Reason For Exam: hypoxia;Other: RESULT: CT Angio Chest EXAMINATION: CT Angio Chest INDICATION: hypoxia; Clinical Question(s): Pulmonary Embolism; TECHNIQUE: Spiral CTA of the chest was performed after rapid IV contrast administration without cardiac gating, triggered by an CHAI on the main pulmonary artery. Images are formatted in multiple planes using 2-D multiplanar and 3-D maximum intensity projection. 100 cc of Omnipaque 300 was administered intravenously. Weight-based protocol using automatic tube modulation was used to optimize exposure parameters. CTDIvol Body: 19.84 mGy, DLP Body: 364 mGy*cm. COMPARISONS: 08/13/2016 and chest radiograph from yesterday. FINDINGS: No evidence of pulmonary embolus. Borderline enlarged right paratracheal and subcarinal lymph nodes measuring up to approximately 1 cm in short axis. Subcentimeter left hilar lymph nodes. Mediastinal and hilar lymph nodes are likely reactive. Patchy groundglass airspace disease and consolidation with lower lobe predominance. IMPRESSION: No evidence of pulmonary embolus. Patchy groundglass and bilateral consolidation and airspace disease with lower lobe predominance. Findings are consistent with multifocal pneumonia in the proper clinical setting. I have personally reviewed the images and I agree with this report. WSN: [id number] Ordering Physician: Saskia Gonzalez Dictated By: Charity Dutta MD Dictated Date/Time: 02/17/24 12:44 p Reviewed By: Jose L Spears MD Signed By: Jose L Spears MD Signed Date/Time: 02/17/24 12:49 pm Transcribed By: JACOB Transcribed Date/Time: 02/17/24 12:32 pm * Exam Date Time Procedure Performing Provider Status 02/16/24 8:49 AM Chest Portable Haylee Espinoza; Auth (Verified) Notes: (Chest Portable) Reason For Exam: CHF RESULT: Chest Portable Chest Portable Reason: CHF; Clinical Question(s): Follow-Up Abnormal Exam COMPARISON: 02/15/2024 and 02/13/2024 FINDINGS: LINES AND TUBES: None. LUNGS AND PLEURA: Engorgement and indistinctness of the pulmonary vascularity suggestive of pulmonary edema. Progressive increasing airspace opacity in the right mid and upper lung No pleural effusion. No pneumothorax. HEART, MEDIASTINUM AND MARY: Mild prominence of the cardiac silhouette. Normal mediastinal and hilar contour. BONES AND SOFT TISSUES: No acute abnormality. IMPRESSION: Mild increasing airspace opacity in the right mid and upper lung which could represent developing consolidation. Pulmonary edema. WSN: [id number] Ordering Physician: Saskia Gonzalez Dictated By: Delmer Pappas MD Dictated Date/Time: 02/16/24 12:48 p Reviewed By: Delmer Pappas MD Signed By: Delmer Pappas MD Signed Date/Time: 02/16/24 12:48 pm Transcribed By: JACOB Transcribed Date/Time: 02/16/24 12:46 pm * Exam Date Time Procedure Performing Provider Status 02/15/24 1:19 AM Chest Portable Melissa Person; Auth (Verified) Notes: (Chest Portable) Reason For Exam: CHF RESULT: Chest Portable Chest Portable Reason: CHF; Clinical Question(s): Pneumonia COMPARISON: FINDINGS: LINES AND TUBES: None. LUNGS AND PLEURA: Increasing indistinct groundglass interstitial opacity consistent with worsening pulmonary edema. No pleural effusion or pneumothorax. HEART, MEDIASTINUM AND MARY: Mild-moderate cardiac enlargement is unchanged. Normal mediastinal and hilar contour. BONES AND SOFT TISSUES: No acute abnormality. IMPRESSION: Worsening pulmonary edema consistent with progressing CHF. WSN: [id number] Ordering Physician: Last Hyde Dictated By: Delmer Castro MD Dictated Date/Time: 02/15/24 7:56 am Reviewed By: Delmer Castro MD Signed By: Delmer Castro MD Signed Date/Time: 02/15/24 7:56 am Transcribed By: JACOB Transcribed Date/Time: 02/15/24 7:55 am * Exam Date Time Procedure Performing Provider Status 02/13/24 10:12 PM Chest Portable Andres Garcia; Auth (V erified) Notes: (Chest Portable) Reason For Exam: Cough RESULT: Chest Portable Chest Portable Reason: Cough; Clinical Question(s): Pneumonia COMPARISON: 09/15/2023 FINDINGS: LINES AND TUBES: None. LUNGS AND PLEURA: Low lung volumes with mild basilar atelectasis. Lungs are otherwise clear with no consolidation. No pleural effusion. No pneumothorax. HEART, MEDIASTINUM AND MARY: Heart is normal in size. Normal mediastinal and hilar contour. BONES AND SOFT TISSUES: No acute abnormality. IMPRESSION: No acute abnormality. WSN: [id number] Ordering Physician: Devin Monroy Dictated By: Jonathan Garcia MD Dictated Date/Time: 02/13/24 10:22 p Reviewed By: Jonathan Garcia MD Signed By: Jonathan Garcia MD Signed Date/Time: 02/13/24 10:22 pm Transcribed By: JACOB Transcribed Date/Time: 02/13/24 10:21 pm Vital Signs Most recent to oldest [Reference Range]: 1 2 3 Weight 182.9 kg (02/21/24 7:47 AM) Oxygen Saturation [94-100 %] 95 % (02/22/24 11:08 AM) 94 % (02/22/24 8:00 AM) 93 % *L* (02/22/24 4:00 AM) Pulse Rate [55-90 bpm] 83 bpm (02/22/24 11:08 AM) 63 bpm (02/22/24 8:00 AM) 69 bpm (02/22/24 4:00 AM) Blood Pressure [90-138/55-84 mm Hg] 124/87mm Hg (02/22/24 11:08 AM) 128/77mm Hg (02/22/24 8:00 AM) 114/66mm Hg (02/22/24 4:00 AM) Respiratory Rate [16-30 br/min] 18 br/min (02/22/24 11:08 AM) 20 br/min (02/22/24 8:00 AM) 17 br/min (02/22/24 4:00 AM) Temperature [96.8-100.4 DegF] 98.4 DegF (02/22/24 11:08 AM) 97.4 DegF (02/22/24 8:00 AM) 97.6 DegF (02/22/24 4:00 AM) Liters per Minute 2 L/min (02/22/24 11:08 AM) 2 L/min (02/21/24 9:00 PM) 4 L/min (02/21/24 8:00 PM) Mode of Delivery (Oxygen) Nasal cannula (02/22/24 11:08 AM) Nasal cannula (02/22/24 8:00 AM) Other: ivaps (02/22/24 4:00 AM) Blood pressure sites Arm, right (02/22/24 11:08 AM) Arm, right (02/22/24 8:00 AM) Arm, right (02/22/24 4:00 AM) Temperature Route Oral (02/22/24 11:08 AM) Axillary (02/22/24 8:00 AM) Axillary (02/22/24 4:00 AM) Weight Obtained Via Bed scale (02/21/24 7:47 AM) Social History Social History Type Response Smoking Status Former smoker, quit more than 30 days ago entered on: 06/11/19 Sex Admission evaluation note * Jose MILLER, Dante Moran: PERFORM Event Display: Admission Note Authored Date: [id number] Patient: ??ZULEIMA TEMPLE ? Age:??48 Years?Sex:??Female?:??1975?? Chief Complaint/Reason for Consultation fever, dyspnea History of Present Illness Ms. Temple is a 48 year old lady with a PMH of asthma, hypoxia (on 2L), HFpEF, REBEL (on CPAP), and T2DM who presented to the ED with 3 days of progressively worsening dyspnea. ?? Patient states that she has been having a runny nose and post nasal drip for a few days associated with worsening shortness of breath, subjective fever and productive cough. She also had a sore throat and painful swallowing and was concerned she had an infection. Her dyspnea progressed to the pointshe was having difficulty walking hence called EMS. She was found hypoxic to 83% on 2L and started on NRB.?? She denies chest pain, Popeye pain, nausea/vomiting/diarrhea.?? She does states that she has a history of heart failure and that she has been having weight gain and she thinks that her legs have been more swollen.?? States she has been compliant with her Lasix. ?? On arrival to the ER she was febrile 101.8, tachycardic 108, tachypneic 34, BP 140/100.?? She was wheezing on arrival.?? She had to be placed on high flow nasal cannula.?? Labs showed WBC 18.8, bicarb 32 otherwise unremarkable CMP, NT proBNP 139, troponin 8, negative viral panel.?? Chest x-ray showed enlarged cardiac silhouette, pulmonary venous congestion, no clear focal consolidation.?? She was given ceftriaxone and doxycycline.?? She was also given 500 mL LR.?? She was given Solu-Medrol and DuoNebs.?? Bedside ultrasound showed no B-lines. Review of Systems All systems reviewed and negative except as indicated in HPI. Objective Vital Signs?? Temperature: 99.6 DegF (02/14/24 03:31:00) Temperature Route: Oral (02/14/24 03:31:00) Pulse Rate:??113 bpm??High (02/14/24 03:31:00) Heart Rate Monitored:??110 bpm??High (02/14/24 00:58:00) Respiratory Rate: 25 br/min (02/14/24 03:31:00) Vented: No (02/14/24 00:58:00) Systolic Blood Pressure: 130 mm Hg (02/14/24 03:31:00) Diastolic Blood Pressure: 75 mm Hg (02/14/24 03:31:00) Blood pressure sites: Arm, left (02/14/24 03:31:00) Mean Arterial Pressure: 93 mm Hg (02/14/24 03:31:00) Pulse Pressure: 55 mm Hg (02/14/24 03:31:00) Oxygen Saturation: 95 % (02/14/24 03:31:00) Liters per Minute: 6 L/min (02/13/24 22:17:00) Mode of Delivery (Oxygen): High flow nasal cannula (02/14/24 03:31:00) FiO2: 100 % (02/14/24 00:58:00) Early Warning Score:??12??Critical (02/14/24 03:32:16) ? Intake/Output? No Data Available ? Physical Exam Constitutional: Alert, in no acute distress. Head EENT: Extraocular muscle movement intact.??Moist mucous membranes.?? Neck: Supple. No JVD. Respiratory: HFNC 70L 100%. Crackles on auscultation. Cardiovascular: S1S2 regular. No murmurs, rubs or gallops. Gastrointestinal: Abdomen soft, non-tender, non-distended. Normal bowel sounds. Genitourinary: No CVA tenderness. Extremities: 1+ lower extremity pitting??edema. No cyanosis or clubbing. Neurologic: AAOx3, Speech normal. No focal neurological deficits. Skin: No rash. Psychiatric: Normal mood and affect Assessment/Plan 48 year old lady with a PMH of asthma, hypoxia (on 2L), HFpEF, REBEL (on CPAP), and T2DM who presented to the ED with 3 days of progressively worsening dyspnea. ?? Hypoxia (R09.02):? Fever (R50.9):? Leukocytosis (D72.829):? Pt presented with worsening dyspnea, hypoxia, fever and leukocytosis Recent hx of sore throat, rhinorrhea Also reports leg swelling and weight gain; was given 500 cc LR in ED and then required HFNC No clear consolidation on CXR Ddx bacterial vs viral pneumonia vs HFpEF exacerbation - continue ceftriaxone, azithromycin - f/u blood cultures - sputum culture - urine legionella, strep antigens - will diurese with 40mg IV lasix - wean O2 as tolerated - ordered urinalysis ?? DMII (E11.9):? - SSI - goal 140-180 ?? Heart failure with preserved ejection fraction (I50.30):? Possible HFpEF exacerbation CXR shows pulm edema, no B lines on POCUS though Given 500 cc LR in ED On HFNC, hypoxic - will diurese as above - strict I/Os - monitor electrolytes, replete - wean O2 as tolerated ?? Code status: full DVT ppx:??lovenox Diet: regular Dispo:??intercare ?? Total Visit Time: I personally spent a total of 80 minutes, including both hadi-pb-lguw and crb-jlor-td-face time on the date of the encounter, addressing the above diagnoses. Activities performed in this time include chart review, obtaining / reviewing history, performing amedically necessary evaluation, documentation and counseling. ?? Dante Garcia MD Collection Specialist 7p-7a After 7 am please contact day time provider for questions/consult updates. ?? Histories Past Medical History/Problem List Active Problems(13) Arthritis of knees Asthma Cholesteatoma of ear Complex ovarian cyst - see 2012 US DMII Heart failure with preserved ejection fraction Hypoxia - desat on ambulation 02/10/19 (workup pending) Mixed Conductive and Sensorineural Hearing Loss Morbid obesity with BMI of 70 and over, adult REBEL - Obstructive sleep apnea, severe (PSG 2011) -> not on home CPAP Osteoarthritis Oxygen desaturation during sleep ??75% in 2012 Severe obesity ? Past Surgical History Tubal ligation: 1993 Tonsillectomy: 1990 Procedure on right ear ? Social History Alcohol Details:??Use: Never. Employment/School Details:??Status: Disabled, Unemployed. Exercise Details:??Self assessment: Poor condition. Home/Environment Details:??Living situation: Home/Independent. ??Lives with: Children. Nutrition/Health Details:??Diet: Regular. Sexual Details:??Sexually involved in last 6 months: Yes. ??Sexual orientation: Heterosexual. ??Gender identity: Male. ??Number of partners in last 6 months: 1. Substance Abuse Details:??Use: Never. Tobacco Details:??Use: Former smoker, quit more than 30 days ago. Details:??Former smoker, Tobacco user in household: No. ??Other: Quit 2012. ??Type: Cigarettes. ??Tobacco use times per day: 1. ??14 Number of years:. Electronic Cigarette/Vaping Details:??Electronic Cigarette Use: Never. ? Family History Mother: Arthritis; COPD; Hepatitis; Hypercholesterolemia; Hypertension; Liver cancer ?08-MAR-2014 07:21:16<$>; Liver disease; Migraine Sister: Obesity ? 15-SEP-2014 20:58:42<$> Brother: Obesity ? 13-JUL-2014 20:58:42<$> Brother: Asthma Sister: Asthma; Migraine ? Medications Home Medications Albuterol (albuterol 0.083% inhalation solution)?3?Milliliter?2.5?Milligram?Inhalation?Every 6 hours?for 30?Days Cholecalciferol (Vitamin D3 2000 intl units oral capsule)?1?capsule?2,000?InternationalUnit?By Mouth?Daily Durable Medical Equipment (Walker)?See Instructions?Dispense: Heavy Duty wheeled walker with seat and brakesDx: Morbid obesity Durable Medical Equipment (Freestyle Jorden Monitor)?See Instructions?for 30?Days?use asdirected for Type 2 Diabetes Mellitus Durable Medical Equipment (Freestyle jorden 2 sensors 14 day)?See Instructions?check blood glucose 3 times daily DX: DM type 2, E11.9 Durable Medical Equipment (Freestyle Precision [place] Blood Glucose Test Strips)?See Instructions?check blood glucose 3 times daily DX: DM type 2, E11.9 Durable Medical Equipment (BP monitor and cuff)?See Instructions?to check BP daily. ICD code I10 Durable Medical Equipment (Freestyle Lite Monitor)?See Instructions?use to check bs daily dx E11.9 Durable Medical Equipment (bariatric walker)?See Instructions?for difficulty with ambulation Durable Medical Equipment (Oxygen Supplies)?See Instructions?2-3 L VIA NASAL CANNULA USE NIGHTLY WITH CPAPRESPIRATORY FAILURE HYPOXIA OSAG47.33 R09.02 Durable Medical Equipment (Shower Chair)?See Instructions?bariatric chair. Pt unable to standfor duration of shower d/t M19.90, N17.10 G47.34,R09.02,R60.0,E66.01,M77.9,E11.9 Durable Medical Equipment (Freestyle Lite Lancets)?See Instructions?use to check bs daily dx e11.9 Durable Medical Equipment (Freestyle Lite Test Strips)?See Instructions?use to check bs dailydx E11.9 Durable Medical Equipment (BIPAP SUPPLIES)?See Instructions?BIPAP SUPPLIES REBEL G47.33 Durable Medical Equipment (Shower Grab Bars)?See Instructions?I50.30M19.90 Fluticasone-Salmeterol (Advair Diskus 250 mcg-50 mcg inhalation powder)?1?puff(s)?Inhalation?2 times a day Furosemide (furosemide 40 mg oral tablet)?40?Milligram?1?tablet?By Mouth?2 times a day?for 90?Days Furosemide (furosemide 40 mg oral tablet)?40?Milligram?1?tablet?By Mouth?2 times a day Gabapentin (gabapentin 300 mg oral capsule)?300?Milligram?1?capsule?By Mouth?2 times a day?for back pain Ibuprofen (ibuprofen 800 mg oral tablet)?800?Milligram?1?tablet?By Mouth?3 times a day?prn pain, take with food Metformin (metFORMIN 1000 mg oral tablet)?1?tab(s)?1,000?Milligram?By Mouth?2 times a day Miscellaneous Rx (bedside commode)?See Instructions?dx: CHF, REBEL, obesity, decrease strength and mobility Miscellaneous Rx (rolling walker)?See Instructions?dx: CHF, REBEL, obesity, decrease strength and mobility Multivitamin (multivitamin Multiple Vitamins oral capsule)?1?capsule?By Mouth?Daily ? Inpatient Medications Medications (12) Active SCHEDULED: (4) Enoxaparin 40 mg Inj (Enoxaparin Inj) ??40 mg 0.4 mL, Subcutaneous Injection, Daily Furosemide Inj (Lasix ??Inj) ??40 mg 4 mL, IV Push Slowly, Once Gabapentin 300 mg Capsule (gabapentin 300 mg oral capsule) ??300 mg, By Mouth, 2 times a day NaCl 0.9% Flush 3ml (NaCL 0.9% Flush) ??3 mL, IV Push, Every 8 hours CONTINUOUS: (0) PRN: (8) Acetaminophen 325 mg Tablet (Acetaminophen Tablet) ??650 mg, By Mouth, Every 4 hours Dextromethorphan-Guaifenesin 20 mg-200 mg/10 mL Liqu UD (Robitussin DM Liquid) ??10 mL, By Mouth, Every 4 hours Docusate Sodium 100 mg Capsule (Docusate Sodium Capsule) ??100 mg 1 capsule, By Mouth, 2 times a day Melatonin 3 mg Tablet (Melatonin Tablet) ??3 mg, By Mouth, Daily at bedtime NaCl 0.9% Flush 3ml (NaCL 0.9% Flush) ??3 mL, IV Push, Every 8 hours Polyethylene Glycol 17 Gm Powder (MiraLax Powder) ??17 Gm 1 pack/packet, By Mouth, Daily Senna Tablet ??8.6 mg 1 tablet, By Mouth, 2 times a day Simethicone 80 mg Chewable Tablet (Simethicone Tablet) ??80 mg, Chew, 3 times a day ? Results Recent Labs BLOOD COUNT & DIFF WBC 18.8 k/mm3 (High)?? 02/13/2024 22:12 RBC 4.96 m/mm3 ()?? 02/13/2024 22:12 Hgb 15.1 Gm/dL ()?? 02/13/2024 22:12 Hct 46.8 % (High)?? 02/13/2024 22:12 MCV 94.4 femtoliters ()?? 02/13/2024 22:12 MCH 30.4 pg ()?? 02/13/2024 22:12 MCHC 32.3 g/dL (Low)?? 02/13/2024 22:12 Platelet Count 226 k/mm3 ()?? 02/13/2024 22:12 RDW-SD 43.7 femtoliters ()?? 02/13/2024 22:12 MPV 11.0 femtoliters ()?? 02/13/2024 22:12 Nucleated RBC (Automated) 0.0 #/100 WBC'S ()?? 02/13/2024 22:12 Abs. NRBC 0.0 k/mm3 ()?? 02/13/2024 22:12 Abs. Neut 15.8 k/mm3 (High)?? 02/13/2024 22:12 Abs. Lymph 1.8 k/mm3 ()?? 02/13/2024 22:12 Abs. Geary 1.0 k/mm3 (High)?? 02/13/2024 22:12 Abs. Eo 0.0 k/mm3 ()?? 02/13/2024 22:12 Abs. Baso 0.2 k/mm3 (High)?? 02/13/2024 22:12 Neut % 73.0 % ()?? 02/13/2024 22:12 Lymph % 9.6 % (Low)?? 02/13/2024 22:12 Geary % 5.2 % ()?? 02/13/2024 22:12 Eos % 0.0 % ()?? 02/13/2024 22:12 Baso % 0.9 % ()?? 02/13/2024 22:12 Band % 11.3 % (High)?? 02/13/2024 22:12 RBC Morphology FEW ()?? 02/13/2024 22:12 Platelet Estimate ADEQUATE ()?? 02/13/2024 22:12 ?? CARDIAC Nt-Probnp 139 pg/mL (High)?? 02/13/2024 22:12 High Sensitivity Troponin (HSTnT) 8 ng/L ()?? 02/13/2024 22:12 ?? CHEM GENERAL Sodium 138 mmol/L ()?? 02/13/2024 22:12 Potassium 4.0 mmol/L ()?? 02/13/2024 22:12 Chloride 97 mmol/L (Low)?? 02/13/2024 22:12 Bicarbonate Level 32 mmol/L (High)?? 02/13/2024 22:12 Anion Gap 9 ()?? 02/13/2024 22:12 Glucose Level 184 mg/dL (High)?? 02/13/2024 22:12 Glucose, POC 152 mg/dL (High)?? 02/13/2024 21:58 BUN 11 mg/dL ()?? 02/13/2024 22:12 Creatinine-Blood 0.9 mg/dL ()?? 02/13/2024 22:12 Estimated GFR Creatinine 81 ML/MIN/1.73 M2 ()?? 02/13/2024 22:12 Calcium 9.3 mg/dL ()?? 02/13/2024 22:12 Magnesium 1.6 mg/dL ()?? 02/13/2024 22:12 Protein, Total 8.0 Gm/dL ()?? 02/13/2024 22:12 Albumin 4.1 Gm/dL ()?? 02/13/2024 22:12 AG Ratio 1.1 ()?? 02/13/2024 22:12 Alkaline Phosphatase 95 units/L ()?? 02/13/2024 22:12 AST (SGOT) 15 units/L ()?? 02/13/2024 22:12 ALT (SGPT) 12 units/L ()?? 02/13/2024 22:12 Bilirubin, Total 0.5 mg/dL ()?? 02/13/2024 22:12 Lactate 1.1 mmol/L ()?? 02/13/2024 22:12 ?? ENDOCRINE/TUMOR MARKER TSH 1.18 uIU/mL ()?? 02/13/2024 22:12 ?? HEME OTHER Hold Blue Top SPECIMEN DISCARDED AFTER 4 HOURS. ()?? 02/13/2024 22:12 ?? VIROLOGY Influenza A PCR NEGATIVE ()?? 02/13/2024 22:00 Influenza B PCR NEGATIVE ()?? 02/13/2024 22:00 RSV PCR NEGATIVE ()?? 02/13/2024 22:00 COVID-19 PCR Specimen Source NASAL ()?? 02/13/2024 22:00 COVID-19 PCR Result NEGATIVE ()?? 02/13/2024 22:00 ? Blood Glucose Trend Glucose Level:??184 mg/dL??High (02/13/24 22:12:00) Glucose, POC:??152 mg/dL??High (02/13/24 21:58:00) ? CBC, CBC w/Diff?? CBC?? Differential?? WBC:??18.8 k/mm3??High (22:12) Abs. Neut:??15.8 k/mm3??High (22:12) RBC: 4.96 m/mm3 (22:12) Abs. Lymph: 1.8 k/mm3 (22:12) Hct:??46.8 %??High (22:12) Abs. Geary:??1 k/mm3??High (22:12) RDW-SD: 43.7 femtoliters (22:12) Abs. Eo: 0 k/mm3 (22:12) Nucleated RBC (Automated): 0 #/100 WBC'S (22:12) Abs. Baso:??0.2 k/mm3??High (22:12) Abs. NRBC: 0 k/mm3 (22:12) Neut %: 73 % (22:12) ?? Lymph %:??9.6 %??Low (22:12) ?? Geary %: 5.2 % (22:12) ?? Eos %: 0 % (22:12) ?? Baso %: 0.9 % (22:12) ?? Band %:??11.3 %??High (22:12) ?? RBC Morphology: FEW (22:12) ?? Platelet Estimate: ADEQUATE (22:12) ? LFT Albumin: 4.1 Gm/dL (22:12) Alkaline Phosphatase: 95 units/L (22:12) ALT (SGPT): 12 units/L (22:12) AST (SGOT): 15 units/L (22:12) Bilirubin, Total: 0.5 mg/dL (22:12) ?? Urinalysis?? No qualifying data available. ?? Microbiology ?? Blood Culture #2?? Collected?? Source: Blood Body Site: ?? Collected Dt/Tm: 02/13/2024 22:13 Last Updated Dt/Tm: 02/13/2024 21:54 ?? COVID-19, RSV, and Flu A/B, Rapid PCR?? Completed?? Source: Nasal Body Site: Nose Collected Dt/Tm: 02/13/2024 21:54 Last Updated Dt/Tm: 02/13/2024 23:20 ? Blood Gases?? No qualifying data available. ?? EKG study * Event Display: EKG Authored Date: * Event Display: ECG 12-Lead Authored Date: Please click on pdf link to open report * Event Display: ECG 12-Lead Authored Date: Ventricular Rate: 77 BPM Atrial Rate: 77 BPM P-R Interval: 146 ms QRS Duration: 82 ms Q-T Interval: 394 ms QTC Calculation(Bazett): 445 ms P River[place]: 18 degrees R River[place]: 57 degrees T [place]: 54 degrees Normal sinus rhythm Normal ECG When compared with ECG of 13-FEB-2024 21:58, Nonspecific T wave abnormality no longer evident in Lateral leads Confirmed by Hira Kramer ([id number]) on 02/15/2024 7:56:46 AM [place]: Hira Kramer * Event Display: ECG 12-Lead Authored Date: Please click on pdf link to open report * Event Display: ECG 12-Lead Authored Date: Ventricular Rate: 113 BPM Atrial Rate: 113 BPM P-R Interval: 138 ms QRS Duration: 84 ms Q-T Interval: 334 ms QTC Calculation(Bazett): 458 ms P River[place]: 54 degrees R [place]: 35 degrees T [place]: 74 degrees Sinus tachycardia Otherwise normal ECG When compared with ECG of 15-SEP-2023 14:54, No significant change was found Confirmed by Hira Kramer ([id number]) on 02/14/2024 11:11:05 AM [place]: Hira Kramer Heart * Event Display: Echocardiogram - Complete Authored Date: Transthoracic Echocardiography Report (TTE) Patient Demographics Patient Name ZULEIMA TEMPLE Date of Study 02/17/2024 Corporate Gender Female Facility Race Ethnicity or Date of 1975 Height: 59.84 inches Age 48 year(s) Weight: 385.82 pounds Accession Number [id number] BSA: 2.46 m2 Room Number [id number] BMI: 75.75 kg/m2 Referring Mauricio MILLER Interpreting Fernanda Kruger Physician Metal Furnace Operator Valeriy Green SULLY Indications Shortness of breath. Clinical History VIRAL SYNDROME MORBID OBESITY REBEL CKD LEUKOCYTOSIS HYPOXIA Study Data Type of Study TTE procedure:Echo Complete-Doppler, Colorflow, M-Mode. Procedure Information:Definity was administered by [employer] . Study Date02/17/2024 Start Time: 01:11 PM Study Location: [facility] Adult Echo Study Status: Bedside Patient Status: Routine Technical Quality: Adequate Blood Pressure:112/73 mmHg EKG: Normal sinus rhythm HR: 72 bpm Contrast Medium: Definity. Amount - 2 ml 2D Measurements LV Diastolic Dimension: 5.2 cm LV Systolic Dimension: 3.3 cm LV Septum Diastolic: 1.16 cm LV PW Diastolic: 1.15 cm AO Root Dimension: 3.5 cm LA Dimension: 4 cm LA ESV (BP):60.17 ml LVOT Stroke Volume: 115.68 ml LA ESV Index: 24 ml/m2 Stroke Volume Index47.02 ml/m2 LVOT: 2.6 cm Cardiac Index:3.39 l/min/m2 Ascending Aorta:3.4 cm Doppler Measurements AV Peak Velocity: 149 cm/s MV Peak E-Wave: 105 cm/s AV Peak Gradient: 8.88 mmHg MV Peak A-Wave: 88.6 cm/s AV Mean Gradient: 5 mmHg MV E/A Ratio: 1.19 AV VTI:30.1 cm LVOT Peak Velocity: 107 cm/s LVOT VTI21.8 cm MV Deceleration Time: 230 msec AV Area (Continuity):3.84 cm2 TR Velocity:210 cm/s PV Peak Velocity: 104 cm/s TR Gradient:17.64 mmHg PV Peak Gradient: 4.33 mmHg E' Septal Velocity: 9.36 cm/s E' Lateral Velocity: 13.7 cm/s E/Med E':[id number] E/Lat E':[id number] Cardiac Anatomy Left Ventricle/Interventricular Septum The left ventricular size is mildly dilated by volume. The left ventricular wall thickness is mildly increased. Echocontrast images are foreshortened. Normal LV systolic function. Ejection fraction is 50-60%. There are no regional wall motion abnormalities. Normal diastolic function. Left Atrium/Interatrial Septum The left atrium is normal in size. Aortic Valve The aortic valve is poorly visualized. There is no aortic stenosis. There is no aortic regurgitation. Mitral Valve The mitral valve appears grossly normal. There is trace mitral regurgitation. Aorta The aortic root is normal in size. Right Ventricle The right ventricle is dilated. Right ventricular systolic function appears preserved. Right Atrium The right atrium is normal in size. Pulmonic Valve The pulmonic valve is poorly visualized. Tricuspid Valve The tricuspid valve is grossly normal. There is trace tricuspid valve regurgitation. Pumonary Artery An accurate pulmonary artery pressure could not be obtained. Venous Structures The inferior vena cava appears dilated. Inferior vena cava inspiratory collapse is normal . Pericardium/Extracardiac There is an epicardial fat pad present. There is no significant pericardial effusion. Summary The left ventricular size is mildly dilated by volume. The left ventricular wall thickness is mildly increased. Echocontrast images are foreshortened. Normal LV systolic function. Ejection fraction is 50-60%. There are no regional wall motion abnormalities. Normal diastolic function. The aortic valve is poorly visualized. There is no aortic stenosis. There is no aortic regurgitation. The right ventricle is dilated. Right ventricular systolic function appears preserved. There is an epicardial fat pad present. There is no significant pericardial effusion. Comparison Comparison is made to the study of August 09, 2020. There are technical differences limiting assessment, RV/LV appear dilated on current study. Signature * Event Display: Echocardiogram - Complete Authored Date: Cardiology * Event Display: Cardiac Rhythm Strips Authored Date: Hospital Progress note * Opal Renteria RN: PERFORM, SIGN, VERIFY Event Display: Progress Note Hospital Authored Date: Patient: ZULEIMA TEMPLE Age: 48 years Sex: Female : 1975 Associated Diagnoses: None Author: Opal Renteria RN Findings Problem Related to Alteration in Respiratory Function (new) : Alteration in Respiratory Function/new 02/22/2024 11:00 EDT Alteration in Resp Status Related to Asthma, Other: Dyspnea, Hypoxia Goals & Outcomes, Respiratory Pt will maintain/resume baseline physical assessment, Pt will maintain adequate nutritional intake, Pt will maintain/resume normal fluid/electrolyte balance, Pt willnot develop complications r/t immobility, Pt will demonstrate proper technique w/self care procedures Interventions, Respiratory Assess for and report S&S of respiratory distress, Position for comfort & optimal oxygenation BH Goals/Interventions, Respiratory Yes Respiratory, Problem Start 02/13/2024 0:00 Reviewed Plan with, Respiratory Patient Patient Progression, Respiratory Resolved problem Respiratory, Problem Resolved 02/22/2024 11:03 . Alert and oriented, denies pain. VSS, afebrile, no acute resp. distress noted. Medicated per DEC. safety maintained, call light within reach. New order to transfer patient to for discharge. Reportgiven to s3 nurse. Patient left the unit via stretcher with her belongings. Discharge Information Case Management Discharge Plan : Case Management Discharge Plan Data 02/22/2024 10:02 EDT Discharge Level of Care at Discharge Homehealth/VNA Discharge VNA/Hospice/Home Care [facility] [phone] Discharge Transportation Arranged family Mode of Transportation Arranged car Agency Criminal Attorney #1 admissions Service Categories #1 Physical Therapy, Prison Service Comments #1 you have been set up with [facility] - they will call in 24-48 hours,if they do not please call agency 02/21/2024 13:42 EDT Discharge Medical Equipment [employer] [facility] Pulmonary Rehab Discharge : Pulmonary Rehab Discharge Status 02/22/2024 4:26 EDT CPAP/BiPAP Mask Type Full CPAP/BiPAP Mask Size Large 02/22/2024 1:21 EDT CPAP/BiPAP Mask Type Full CPAP/BiPAP Mask Size Large 02/21/2024 23:07 EDT CPAP/BiPAP Mask Type Full CPAP/BiPAP Mask Size Large 02/21/2024 13:42 EDT Patient Going Home on Oxygen Yes Oxygen Device used at Home Nasal cannula Liter flow 2 LPM Oxygen Use Duration At rest Oxygen Device used at Home (secondary) Nasal cannula Liter flow (secondary) 3 LPM Oxygen Use Duration (secondary) With activity Further Oxygen Instructions Continue to BIPAP with 6L oxygen at night and with naps Informational handouts Oxygen Therapy Home care instructions Call company when you get home., An appointment has been scheduled with a pulmonary nurse. (Modified) Nurse Communication (Pulmonary Rehab) Nurse Communication (Pulmonary Rehab) 02/21/2024 3:35 EDT CPAP/BiPAP Mask Type Full CPAP/BiPAP Mask Size Large 02/21/2024 0:13 EDT CPAP/BiPAP Mask Type Full CPAP/BiPAP Mask Size Large 02/20/2024 4:04 EDT CPAP/BiPAP Mask Type Full CPAP/BiPAP Mask Size Large 02/20/2024 0:57 EDT CPAP/BiPAP Mask Type Full CPAP/BiPAP Mask Size Large 02/19/2024 23:44 EDT CPAP/BiPAP Mask Type Full CPAP/BiPAP Mask Size Large 02/18/2024 23:39 EDT CPAP/BiPAP Mask Type Full CPAP/BiPAP Mask Size Large 02/18/2024 4:20 EDT CPAP/BiPAP Mask Type Full CPAP/BiPAP Mask Size Large 02/18/2024 0:01 EDT CPAP/BiPAP Mask Type Full CPAP/BiPAP Mask Size Large 02/17/2024 4:27 EDT CPAP/BiPAP Mask Type Full CPAP/BiPAP Mask Size Large 02/17/2024 1:23 EDT CPAP/BiPAP Mask Type Full CPAP/BiPAP Mask Size Large Rehabilitation Discharge : Rehab Discharge Index 02/20/2024 9:25 EDT Comments on treatment indicated 48yo F p/w x3 days progressively worsening dyspnea. Admit with osccw-zy-efbsayz hypoxic respiratory failure probable viral syndrome / possible yfwfq-me-uuhkdef diastolic CHF exacerbation. PT for bed mobility, transfers, ambulation, stairs. Rec homec PT Walker: distance 10-20 Distance pt will ambulate 100ft Full chart review completed Yes Other findings Per comment: Plan of care PT Gait training, Transfer training, Therapeutic exercise, Functional Activities, Balance training, Neuromuscular education * Sowmya Hooks LPN: PERFORM, SIGN, VERIFY Event Display: Progress Note Hospital Authored Date: [id number] Patient: ZULEIMA TEMPLE Age: 48 years Sex: Female : 1975 Associated Diagnoses: None Author: Sowmya Hooks LPN Findings Problem Related to Alteration in Cardiac Function (new) : Alteration in Cardiac Function/new 02/21/2024 23:00 EDT Alteration in Cardiac Status Related to Heart failure Goals & Outcomes, Cardiac Status Pt will resume/maintain adequate cardiac output, Pt will maintain adequate nutrition status, Pt will understand fluid restriction for Heart Failure Cardiac Interventions Implemented Assess/monitor cardiac status, Assess/monitor neuro status, Assess/monitor respiratory status, Document & Monitor O2 Sats; Administer O2 as ordered BH Goals/Interventions, Cardiac Yes Cardiac, Problem Start 02/21/2024 17:50 Reviewed Plan with, Cardiac Status Patient Patient Progression, Cardiac Status Patient progressing according to plan . Evaluation Pt is A&O X4, on 2 L O2 via NC, NS on tele, denies CP and SOB. Incontinent of urine, voiding via prima yello & clear, abd soft & non-tender, and +BS X4. C/O headache, administered PRN Tylenol with good effect. POC was 340, Venkat Arizmendi notified, administered 5 units of Lispro per order. Pt cooperative with CPAP while sleeping, safety precautions & hourly roundings in place. . Discharge Information Case Management Discharge Plan : Case Management Discharge Plan Data 02/21/2024 13:42 EDT Discharge Medical Equipment [employer] [facility]charge : Pulmonary Rehab Discharge Status 02/22/2024 1:21 EDT CPAP/BiPAP Mask Type Full CPAP/BiPAP Mask Size Large 02/21/2024 23:07 EDT CPAP/BiPAP Mask Type Full CPAP/BiPAP Mask Size Large 02/21/2024 13:42 EDT Patient Going Home on Oxygen Yes Oxygen Device used at Home Nasal cannula Liter flow 2 LPM Oxygen Use Duration At rest Oxygen Device used at Home (secondary) Nasal cannula Liter flow (secondary) 3 LPM Oxygen Use Duration (secondary) With activity Further Oxygen Instructions Continue to BIPAP with 6L oxygen at night and with naps Informational handouts Oxygen Therapy Home care instructions Call company when you get home., An appointment has been scheduled with a pulmonary nurse. (Modified) Nurse Communication (Pulmonary Rehab) Nurse Communication (Pulmonary Rehab) 02/21/2024 3:35 EDT CPAP/BiPAP Mask Type Full CPAP/BiPAP Mask Size Large 02/21/2024 0:13 EDT CPAP/BiPAP Mask Type Full CPAP/BiPAP Mask Size Large 02/20/2024 4:04 EDT CPAP/BiPAP Mask Type Full CPAP/BiPAP Mask Size Large 02/20/2024 0:57 EDT CPAP/BiPAP Mask Type Full CPAP/BiPAP Mask Size Large 02/19/2024 23:44 EDT CPAP/BiPAP Mask Type Full CPAP/BiPAP Mask Size Large 02/18/2024 23:39 EDT CPAP/BiPAP Mask Type Full CPAP/BiPAP Mask Size Large 02/18/2024 4:20 EDT CPAP/BiPAP Mask Type Full CPAP/BiPAP Mask Size Large 02/18/2024 0:01 EDT CPAP/BiPAP Mask Type Full CPAP/BiPAP Mask Size Large 02/17/2024 4:27 EDT CPAP/BiPAP Mask Type Full CPAP/BiPAP Mask Size Large 02/17/2024 1:23 EDT CPAP/BiPAP Mask Type Full CPAP/BiPAP Mask Size Large Rehabilitation Discharge : Rehab Discharge Index 02/20/2024 9:25 EDT Comments on treatment indicated 48yo F p/w x3 days progressively worsening dyspnea. Admit with rdoah-hs-bzuwyjo hypoxic respiratory failure probable viral syndrome / possible oujsi-ru-qjfdfwu diastolic CHF exacerbation. PT for bed mobility, transfers, ambulation, stairs. Rec homec PT Walker: distance 10-20 Distance pt will ambulate 100ft Full chart review completed Yes Other findings Per comment: Plan of care PT Gait training, Transfer training, Therapeutic exercise, Functional Activities, Balance training, Neuromuscular education * Blake MILLER, Jose Raul James: PERFORM Event Display: Progress Note Hospital Authored Date: Patient: ??ZULEIMA TEMPLE ? Age:??48 Years?Sex:??Female?:??1975?? Subjective 48-year-old female seen in follow-up [facility] [place]02/[facility] No real change in shortness of breath. Patient has been ambulatory??with walker. ??PT evaluation done??recommended home services She is currently on 2 L minute of oxygen which is her??baseline ?? Patient is on 40 mg of furosemide twice daily which is her home dose Review of Systems Negative apart from mentioned above Objective Measurements?? Weight: 182.9 kg (02/21/24) ?? Vital Signs?? Temperature: 98.3 DegF (02/21/24 07:00:00) Temperature Route: Oral (02/21/24 07:00:00) Pulse Rate: 71 bpm (02/21/24 07:00:00) Respiratory Rate: 22 br/min (02/21/24 09:56:00) Systolic Blood Pressure: 117 mm Hg (02/21/24 07:00:00) Diastolic Blood Pressure: 69 mm Hg (02/21/24 07:00:00) Blood pressure sites: Arm, right (02/21/24 04:00:00) Pulse Pressure: 48 mm Hg (02/21/24 07:00:00) Oxygen Saturation: 94 % (02/21/24 07:00:00) Liters per Minute: 2 L/min (02/21/24 07:00:00) Mode of Delivery (Oxygen): Nasal cannula (02/21/24 07:00:00) Early Warning Score: 4 (02/21/24 09:56:09) ? Intake/Output? 02/12 23:47 02/20 07:00 02/19 07:00 02/18 07:00 02/17 07:00 ?? 02/20 11:58 02/20 11:58 02/20 06:59 02/19 06:59 02/18 06:59 Intake ? 5328 ?720 ?600 ?740 ? 1080 Output ?16863 ?300 ? 2100 ? 3500 ? 2200 Net Total ? -41589 ?420 ?-1500 ?-2760 ?-1120 ? Urine Count ? 12 ?0 ?2 ?3 ?0 ? Physical Exam Constitutional: Middle-age female. ??Morbidly obese.?? Propped up in bed.?? Unable to speak in fullsentences. Head: Normocephalic. ?? Eyes: Pupils are equal, round and reactive to light. Extraocular muscles intact. No pallor or scleral icterus ?? Ear, Nose and Throat: mucous membranes moist. Ears and nose - no obvious deformities. Trachea midline. ?? Neck: Unable to assess JVD due to body habitus Respiratory:??Diminished breath sounds but partly due to??difficulty with auscultation due to body habitus Cardiovascular:??PMI not visible. S1 S2 regular. No murmurs, rubs or gallops. Gastrointestinal:??Obese. ??Nontender Genitourinary:??No costovertebral angle tenderness. Extremities: 2+ pitting edema in the lower extremities Neurologic:??AAOx3, no focal deficits Psychiatric: Normal mood and affect. _ Inpatient Medications Medications (24) Active SCHEDULED: (11) Albuterol 0.083% Inhalation Solution (Albuterol 0.083% inhalation carlota) ??2.5 mg 3 mL, BAND Nebulizer, 4 times a day Albuterol 0.083% Inhalation Solution (Albuterol 0.083% inhalation carlota) ??2.5 mg 3 mL, BAND Nebulizer, Once Arformoterol 15 mcg/2mL Inh Carlota (Brovana 15mcg/2mL Inhalation Solution) ??15 mcg 2 mL, BAND Nebulizer, 2 times a day Budesonide 0.5 mg/ 2 mL Inhalation Susp (Pulmicort Respules 0.5 mg/2 mL inhalation suspension) ??0.5 mg 2 mL, Neb, 2 times a day Enoxaparin 40 mg Inj (Enoxaparin Inj) ??40 mg 0.4 mL, Subcutaneous Injection, 2 times a day Furosemide 40 mg Tablet (Lasix 40 mg oral tablet) ??40 mg, By Mouth, 2 times a day Gabapentin 300 mg Capsule (gabapentin 300 mg oral capsule) ??300 mg, By Mouth, 2 times a day Insulin Glargine 100 units/mL Inj (Lantus Inj) ??20 units 0.2 mL, Subcutaneous Injection, Daily at bedtime Insulin Lispro 100 units/mL Inj (Insulin LISPRO Sliding Scale) ??2-10 units, Subcutaneous Injection, 3 times a day before meals NaCl 0.9% Flush 3ml (NaCL 0.9% Flush) ??3 mL, IV Push, Every 8 hours PredniSONE 20 mg Tablet (predniSONE 20 mg oral tablet) ??60 mg, By Mouth, Daily CONTINUOUS: (0) PRN: (13) Acetaminophen 325 mg Tablet (Acetaminophen Tablet) ??650 mg, By Mouth, Every 4 hours Dextromethorphan-Guaifenesin 20 mg-200 mg/10 mL Liqu UD (Robitussin DM Liquid) ??10 mL, By Mouth, Every 4 hours Dextrose Inj Syringe (Dextrose 50% Inj Syringe (25Gm)) ??12.5 Gm, IV Push Slowly, Every 20 minutes Dextrose Inj Syringe (Dextrose 50% Inj Syringe (25Gm)) ??25 Gm, IV Push Slowly, Every 15 minutes Docusate Sodium 100 mg Capsule (Docusate Sodium Capsule) ??100 mg 1 capsule, By Mouth, 2 times a day Glucagon 1 mg Inj (Glucagon Inj) ??1 mg, Intramuscular, Once Glucose 40% Gel (15 Gm) (Glucose Gel) ??15 Gm, By Mouth, Every 20 minutes Glucose 40% Gel (15 Gm) (Glucose Gel) ??30 Gm, By Mouth, Every 20 minutes Melatonin 3 mg Tablet (Melatonin Tablet) ??3 mg, By Mouth, Daily at bedtime NaCl 0.9% Flush 3ml (NaCL 0.9% Flush) ??3 mL, IV Push, Every 8 hours Polyethylene Glycol 17 Gm Powder (MiraLax Powder) ??17 Gm 1 pack/packet, By Mouth, Daily Senna Tablet ??8.6 mg 1 tablet, By Mouth, 2 times a day Simethicone 80 mg Chewable Tablet (Simethicone Tablet) ??80 mg, Chew, 3 times a day ? Results ? LFT?? No qualifying data available. ?? Microbiology ?? Respiratory Pathogen PCR with COVID-19?? Completed?? Source: Nasopharyngeal Swab Body Site: Nasopharyngeal Collected Dt/Tm: 02/16/2024 14:04 Last Updated Dt/Tm: 02/16/2024 15:38 ?? Blood Culture 2 Results?? Completed?? Source: Blood Body Site: ?? Collected Dt/Tm: 02/14/2024 06:10 Last Updated Dt/Tm: 02/18/2024 17:06 ?? Blood Culture?? Completed?? Source: Blood Body Site: ?? Collected Dt/Tm: 02/13/2024 22:13 Last Updated Dt/Tm: 02/16/2024 01:13 ?? Blood Culture #2?? Completed?? Source: Blood Body Site: ?? Collected Dt/Tm: 02/13/2024 22:13 Last Updated Dt/Tm: 02/18/2024 17:06 ?? Blood Culture Result?? Completed?? Source: Blood Body Site: ?? Collected Dt/Tm: 02/13/2024 22:12 Last Updated Dt/Tm: 02/16/2024 01:13 ?? COVID-19, RSV, and Flu A/B, Rapid PCR?? Completed?? Source: Nasal Body Site: Nose Collected Dt/Tm: 02/13/2024 21:54 Last Updated Dt/Tm: 02/13/2024 23:20 ? Uric/LDH?? No qualifying data available. ?? Assessment/Plan 48-year-old female with a history of morbid obesity BMI 75.1, type 2 diabetes diastolic heart failure, suspected pulmonary hypertension unable to obtain PA pressures, bronchial asthma, REBEL, OHS and chronic hypoxic hypercapnic respiratory failure on 2 L/min of oxygen at night and as needed, peripheral neuropathy who was admitted for acute on chronic hypoxemic respiratory failure secondary to a viral syndrome with possible acute on chronic diastolic heart failure exacerbation.?? Downgraded from [facility] [place] 02[place], now on her baseline home O2 requirement. ?? Ukuxf-vv-gtnhuvw hypoxic respiratory failure (R09.02):??. Viral syndrome (B34.9):??. Obesity hypoventilation syndrome (G47.34):??. REBEL (obstructive sleep apnea) (G47.33):??. Asthma (J45.909):??. Chronic hypoxic respiratory failure (J96.11):? Initially presented with worsening respiratory status and required more oxygen than her baseline Possible etiologies viral syndrome. ??Was treated with??5 days of antibiotics for suspected bacterial infection however procalcitonin was low and there was no clear infiltrate on chest x-ray Respiratory viral panel was negative Her leukocytosis is due to steroid use Completing the 5-day course of prednisone today Continue with budesonide after Medrol and as needed albuterol CPAP at night and with naps. Will get a??pulm rehab??nurse evaluation today for home oxygen level. ? Pulmonary hypertension (I27.20):??. POSSIBLE / SUSPECTED yrawd-fj-pprugie diastolic CHF exacerbation. (I50.30):? X-ray more consistent with volume overload and congestion Received IV diuresis??initially. Now has been transitioned to furosemide 40 mg twice daily which is her home dose. Her weight was recorded as??183 kg today which is a trend of??7 kg up from her??admission weight. ??However??it is likely that the admission was was incorrect She is -1500 mL for the past 24 hours therefore will not increase the Lasix dose High likelihood of pulmonary hypertension, but the TTE could not obtain / adjudicate a PA presure. ? MAME (acute kidney injury) (N17.9):??. Metabolic alkalosis (E87.3):? Baseline sCreat = 0.8 Peaked = 1.3 Creatinine is now down to 0.9 Possibly component of cardiorenal syndrome making the renal function worse. ? DMII (E11.9):? On insulin glargine + insulin s.s. / POC's TID & qHS At home she is on metformin ?? Peripheral neuropathy (G62.9):? On gabapentin ?? VTE Prophylaxis:? On SC enoxaparin ? Discharge Planning:? Plan is for discharge home with services??tomorrow. ??PT evaluation done and recommendation was home services ? Note * Izzy Lilly RN: PERFORM Event Display: Discharge/Transfer Note Hospital Authored Date: Nursing Discharge Note Entered On: 02/22/2024 14:35 EDT Performed On: 02/22/2024 14:33 EDT by Izzy Lilly RN Nursing Discharge Note 2 Discharge Time : 02/22/2024 14:31 EDT Discharge Level of Care at Discharge : Homehealth/VNA Discharge VNA/Hospice/Home Care(v001) : [facility] [phone] Discharge Medical Equip Companies(v001) : [employer] Patient Left Unit Via : Wheelchair Patient Accompanied Off Unit with : Responsible adult DC Instructions Provided & Signed by Pt : Yes Patient Understands D/C Instructions : Yes Verbalized Understanding of D/C Plan By : Family, Patient Patient Instructions Discharge Signed : Yes Discharge Comments : attmepted insulin teaching for patient, however patient and her brother neededto leave before teaching done with pharmacy, brother had to work, equine pharmacology technician aware and will offer teaching as patient picks up meds. Pt home with 02 tank and meds. Did Pt have Specialty Bed or Wound Vac : No Izzy Lilly RN - 02/22/2024 14:33 EDT * Blake MILLER, Jose Raul James: PERFORM Event Display: Discharge/Transfer Note Hospital Authored Date: Patient: ??ZULEIMA TEMPLE ? Age:??48 Years?Sex:??Female?:??1975?? Patient Information Discharge Location: S3 Primary Care Physician: Hazel Valadez DO Admit Date/Time: 02/13/24 23:47 Discharge Disposition Discharge Disposition: Home with Home Health Discharge Diagnosis Fever (R50.9) DMII (E11.9) POSSIBLE / SUSPECTED aqrrp-gi-zdtxhhz diastolic CHF exacerbation. (I50.30) Obesity hypoventilation syndrome (G47.34) POSSIBLE / SUSPECTED superimposed pneumonia (J18.9) Morbid obesity with BMI of 70 and over, adult (E66.01) CKD (chronic kidney disease), stage II (N18.2) Pulmonary hypertension (I27.20) Obesity, unspecified (E66.9) Diabetes mellitus type 2 in obese (E11.69) Asthma with acute exacerbation, unspecified asthma severity, unspecified whether persistent (J45.901) Hypoxia (R09.02) Leukocytosis (D72.829) Leukocytosis (D72.829) Lnkly-le-cybuxvd hypoxic respiratory failure (R09.02) Viral syndrome (B34.9) REBEL (obstructive sleep apnea) (G47.33) Asthma (J45.909) Chronic hypoxic respiratory failure (J96.11) MAME (acute kidney injury) (N17.9) Metabolic alkalosis (E87.3) Peripheral neuropathy (G62.9) _ Discharge Medications Albuterol (albuterol 0.083% inhalation solution)?3?Milliliter?2.5?Milligram?Inhalation?Every 6 hours?for 30?Days Cholecalciferol (Vitamin D3 2000 intl units oral capsule)?1?capsule?2,000?InternationalUnit?By Mouth?Daily Durable Medical Equipment (Walker)?See Instructions?Dispense: Heavy Duty wheeled walker with seat and brakesDx: Morbid obesity Durable Medical Equipment (Novapost Jorden Monitor)?See Instructions?for 30?Days?use asdirected for Type 2 Diabetes Mellitus Durable Medical Equipment (Freestyle jorden 2 sensors 14 day)?See Instructions?check blood glucose 3 times daily DX: DM type 2, E11.9 Durable Medical Equipment (Freestyle Precision [place] Blood Glucose Test Strips)?See Instructions?check blood glucose 3 times daily DX: DM type 2, E11.9 Durable Medical Equipment (BP monitor and cuff)?See Instructions?to check BP daily. ICD code I10 Durable Medical Equipment (Freestyle Lite Monitor)?See Instructions?use to check bs daily dx E11.9 Durable Medical Equipment (bariatric walker)?See Instructions?for difficulty with ambulation Durable Medical Equipment (Oxygen Supplies)?See Instructions?2-3 L VIA NASAL CANNULA USE NIGHTLY WITH CPAPRESPIRATORY FAILURE HYPOXIA OSAG47.33 R09.02 Durable Medical Equipment (Shower Chair)?See Instructions?bariatric chair. Pt unable to standfor duration of shower d/t M19.90, N17.10 G47.34,R09.02,R60.0,E66.01,M77.9,E11.9 Durable Medical Equipment (Freestyle Lite Lancets)?See Instructions?use to check bs daily dx e11.9 Durable Medical Equipment (Freestyle Lite Test Strips)?See Instructions?use to check bs dailydx E11.9 Durable Medical Equipment (BIPAP SUPPLIES)?See Instructions?BIPAP SUPPLIES REBEL G47.33 Durable Medical Equipment (Shower Grab Bars)?See Instructions?I50.30M19.90 Fluticasone-Salmeterol (Advair Diskus 250 mcg-50 mcg inhalation powder)?1?puff(s)?Inhalation?2 times a day Furosemide (furosemide 40 mg oral tablet)?40?Milligram?1?tablet?By Mouth?2 times a day Gabapentin (gabapentin 300 mg oral capsule)?300?Milligram?1?capsule?By Mouth?2 times a day?for back pain Ibuprofen (ibuprofen 800 mg oral tablet)?800?Milligram?1?tablet?By Mouth?3 times a day?prn pain, take with food Insulin Glargine (Insulin Glargine Prefilled Pen 100 units/mL subcutaneous solution)?20?unit(s)?Subcutaneous Injection?Daily at bedtime Miscellaneous Rx (bedside commode)?See Instructions?dx: CHF, REBEL, obesity, decrease strength and mobility Miscellaneous Rx (rolling walker)?See Instructions?dx: CHF, REBEL, obesity, decrease strength and mobility Multivitamin (multivitamin Multiple Vitamins oral capsule)?1?capsule?By Mouth?Daily ?? Medications Started Insulin Glargine (Insulin Glargine Prefilled Pen 100 units/mL subcutaneous solution)?20?unit(s)?Subcutaneous Injection?Daily at bedtime Medications Discontinued Metformin Allergies Allergies ?(Active and Proposed Allergies Only) sulfamethoxazole? (Severity: Unknown severity, Onset: Unknown) ?Reactions: itch ? Hospital Course 48-year-old female with a history of morbid obesity BMI 75.1, type 2 diabetes, diastolic heart failure, suspected pulm hypertension unable to obtain PA pressures, bronchial asthma, REBEL, OHS and chronic hypoxemic hypercapnic respiratory failure on 2 L minute of oxygen at night and as needed, peripheral neuropathy who was admitted for acute on chronic hypoxemic respiratory failure secondary to a viral syndrome with possible acute on chronic diastolic heart failure exacerbation. She was admitted to [facility] as she required positive pressure ventilation. ?? Initially presented with worsening respiratory status. She was tachypneic and febrile and tachycardic on presentation. Blood pressure was stable. Was requiring high flow nasal cannula oxygen to maintain saturation above 92%. Lab work was pertinent for leukocytosis 18.8 with a slight degree of hemoco ncentration. Renal function was at baseline. No electrolyte abnormalities. proBNP 139 high sensitive troponin was negative. TSH within normal limits. Procalcitonin 0.13. Respiratory viral panel was negative including COVID RSV and influenza. Urinalysis was unremarkable. Blood cultures were negative. CT angio chest showed no evidence of pulmonary embolus and showed patchy groundglass and bilateralconsolidation and airspace disease with lower lobe predominance. Was empirically started on ceftriaxone and azithromycin and completed the course however most likely had a viral infection. Was also on IV diuretics. On this regimen her oxygenation improved and was weaned down to her baseline O2 requi rement. Now has been switched to oral home Lasix regimen 40 mg twice daily which she will be discharged on. She had a repeat echocardiogram obtained on 02/16 showed mildly increased left ventricular thickness with normal left and systolic function ejection fraction 50 to 60% with no regional wall motion abnormalities and normal diastolic function. Right ventricular systolic function appeared preserved. Patient also received 5 days of oral steroids. ?? Most of her symptoms are related to REBEL OHS due to extreme obesity. Patient is planned to join a bariatric program on 05 March. ?? She had mild MAME creatinine peaked at 1.3 and trended down to her baseline of 0.9 after diuresis. ?? Had poor diabetic control while in the hospital due to dietary noncompliance as well as use of steroids. Will be discharged on Lantus 20 units at bedtime and will have metformin discontinued poor dueto tolerance. Will need to follow-up with the primary care physician. ?? Patient had a home O2 evaluation performed on 02/20 and the recommendation was 2 to 3 L continuously. This has been set up. Also had a physical therapy evaluation and the recommendation was for home services. ?? Objective Measurements?? Weight: 182.9 kg (02/21/24) ?? Vital Signs?? Temperature: 98.4 DegF (02/22/24 11:08:00) Temperature Route: Oral (02/22/24 11:08:00) Pulse Rate: 83 bpm (02/22/24 11:08:00) Respiratory Rate: 18 br/min (02/22/24 11:08:00) Systolic Blood Pressure: 124 mm Hg (02/22/24 11:08:00) Diastolic Blood Pressure:??87 mm Hg??High (02/22/24 11:08:00) Blood pressure sites: Arm, right (02/22/24 11:08:00) Mean Arterial Pressure: 99 mm Hg (02/22/24 11:08:00) Pulse Pressure: 37 mm Hg (02/22/24 11:08:00) Oxygen Saturation: 95 % (02/22/24 11:08:00) Liters per Minute: 2 L/min (02/22/24 11:08:00) Mode of Delivery (Oxygen): Nasal cannula (02/22/24 11:08:00) FiO2: 28 % (02/22/24 04:26:) Early Warning Score: 2 (02/22/24 11:14:23) ? . Physical Exam Constitutional: Middle-age female. ??Morbidly obese.?? Propped up in bed.?? Unable to speak in fullsentences. Head: Normocephalic. ?? Eyes: Pupils are equal, round and reactive to light. Extraocular muscles intact. No pallor or scleral icterus ?? Ear, Nose and Throat: mucous membranes moist. Ears and nose - no obvious deformities. Trachea midline. ?? Neck: Unable to assess JVD due to body habitus Respiratory:??Diminished breath sounds but partly due to??difficulty with auscultation due to body habitus Cardiovascular:??PMI not visible. S1 S2 regular. No murmurs, rubs or gallops. Gastrointestinal:??Obese. ??Nontender Genitourinary:??No costovertebral angle tenderness. Extremities: 2+ pitting edema in the lower extremities Neurologic:??AAOx3, no focal deficits Psychiatric: Normal mood and affect. Pending Results Add On Lab Order ordered on 02/15/2024 Add On Lab Order ordered on 02/15/2024 Sputum Culture w/ Gram Smear ordered on 02/17/2024 Follow-Up Appointments Added Follow Up ?Time Frame ?Comments Hazel Valadez DO?1 week: call to discuss follow up visit Post Discharge Care Diet: ??Cardiac diet ?? Activity: ??Ambulate with assistance 3 times a day unless otherwise specified ?? Code Status: ??Full Resuscitation ?? Discharge ?02/22/24 10:18:00 EDT Home Health Face to Face *Denotes mandatory massey ?? *I certify that this patient is under my care and that I or an allowed non- physician working with me had a face to face encounter with the patient on this date:??02/22/2024 11:15 ?? *The encounter with the patient was in whole, or in part, for the following medical condition, which is the primary diagnosis(es) for home health care:??Fever (R50.9) DMII (E11.9) POSSIBLE / SUSPECTED [id number] diastolic CHF exacerbation. (I50.30) Obesity hypoventilation syndrome (G47.34) POSSIBLE / SUSPECTED superimposed pneumonia (J18.9) Morbid obesity with BMI of 70 and over, adult (E66.01) CKD (chronic kidney disease), stage II (N18.2) Pulmonary hypertension (I27.20) Obesity, unspecified (E66.9) Diabetes mellitus type 2 in obese (E11.69) Asthma with acute exacerbation, unspecified asthma severity, unspecified whether persistent (J45.901) Hypoxia (R09.02) Leukocytosis (D72.829) Leukocytosis (D72.829) Cqrsr-gc-xbbjloe hypoxic respiratory failure (R09.02) Viral syndrome (B34.9) REBEL (obstructive sleep apnea) (G47.33) Asthma (J45.909) Chronic hypoxic respiratory failure (J96.11) MAME (acute kidney injury) (N17.9) Metabolic alkalosis (E87.3) Peripheral neuropathy (G62.9) ?? *Select the indications for the discipline/s that are being arranged for this patient. Nursing (select all that apply): [_] None [x] Medication management (reconciliation, teaching)?? [x] Chronic disease management?? [_] Wound care and treatment?? [_] Home safety evaluation [_] Administer SQ/IM/IV medications?? [_] Cath care?? [_] Drain care?? [_] Trach or GT care?? Other _ Occupation Therapy (select all that apply): [_] None [_] ADL Management [_] Fall prevention training [_] Energy conservation [_] Cognitive training Other _ Physical Therapy (select all that apply): [_] None [x] Functional mobility training [x] Home exercise program to strengthen [x] Increase ROM?? [x] Falls prevention training [_] Home maintenance program for chronic disease Other _ Speech Therapy (select all that apply): [_] None [_] Swallow evaluation and training [_] Speech and language training [_] Cognitive training to process, organize, and/or recall information Other _ ? *Homebound due to (select all that apply): [x] Inability to leave home without assistance/supervision [x] Inability to ambulate without assistance [_] Pain [x] Decreased strength and endurance [_] Unsteady gait [x] Severe SOB and fatigue [_] Impaired transfers [_] Inability to negotiate stairs [_] Limited weight bearing [_] Mental status change? *Physician Signature: _Jose Raul Lozano MD ?? *By signing this, I certify that I have personally evaluated the patient and agree with the findings and recommendations as documented above. ? Results Discharge Labs BACTERIOLOGY Blood Culture Results Final report ()?? 02/13/2024 22:12 Blood Culture Specimen Source BLOOD ()?? 02/13/2024 22:12 Blood Culture Isolate 1 Comment ()?? 02/13/2024 22:12 Blood Cult 2 Results Final report ()?? 02/14/2024 06:10 Blood Culture 2 Specimen Source BLOOD ()?? 02/14/2024 06:10 Blood Culture 2 Isolate 1 Comment ()?? 02/14/2024 06:10 ?? BLOOD COUNT & DIFF WBC 15.5 k/mm3 (High)?? 02/21/2024 05:12 RBC 4.65 m/mm3 ()?? 02/21/2024 05:12 Hgb 13.9 Gm/dL ()?? 02/21/2024 05:12 Hct 43.0 % ()?? 02/21/2024 05:12 MCV 92.5 femtoliters ()?? 02/21/2024 05:12 MCH 29.9 pg ()?? 02/21/2024 05:12 MCHC 32.3 g/dL (Low)?? 02/21/2024 05:12 Platelet Count 310 k/mm3 ()?? 02/21/2024 05:12 RDW-SD 41.4 femtoliters ()?? 02/21/2024 05:12 MPV 10.3 femtoliters ()?? 02/21/2024 05:12 Nucleated RBC (Automated) 0.0 #/100 WBC'S ()?? 02/21/2024 05:12 Abs. NRBC 0.0 k/mm3 ()?? 02/21/2024 05:12 Abs. Neut 9.4 k/mm3 (High)?? 02/20/2024 00:38 Abs. Lymph 2.0 k/mm3 ()?? 02/20/2024 00:38 Abs. Geary 1.0 k/mm3 (High)?? 02/20/2024 00:38 Abs. Eo 0.0 k/mm3 ()?? 02/20/2024 00:38 Abs. Baso 0.1 k/mm3 ()?? 02/20/2024 00:38 Neut % 72.1 % ()?? 02/20/2024 00:38 Lymph % 15.3 % ()?? 02/20/2024 00:38 Geary % 8.0 % ()?? 02/20/2024 00:38 Eos % 0.0 % ()?? 02/20/2024 00:38 Baso % 0.5 % ()?? 02/20/2024 00:38 Band % 11.3 % (High)?? 02/13/2024 22:12 RBC Morphology FEW ()?? 02/13/2024 22:12 Platelet Estimate ADEQUATE ()?? 02/13/2024 22:12 Imm Gran 4.1 % ()?? 02/20/2024 00:38 Abs. Imm Gran 0.5 k/mm3 ()?? 02/20/2024 00:38 ? BLOOD GAS pH 7.35 (Low)?? 02/16/2024 11:22 pCO2 76 mm Hg (Critical)?? 02/16/2024 11:22 pO2 84 mm Hg ()?? 02/16/2024 11:22 Bicarbonate, Estimated 41 mmol/L (High)?? 02/16/2024 11:22 Specimen Type - Blood Gas ARTERIAL ()?? 02/16/2024 11:22 Percent O2 (FIO2) 50 ()?? 02/16/2024 11:22 ?? CARDIAC Nt-Probnp 52 pg/mL ()?? 02/21/2024 05:12 High Sensitivity Troponin (HSTnT) 8 ng/L ()?? 02/13/2024 22:12 ?? CHEM GENERAL Sodium 139 mmol/L ()?? 02/21/2024 05:12 Potassium 4.4 mmol/L ()?? 02/21/2024 05:12 Chloride 96 mmol/L (Low)?? 02/21/2024 05:12 Bicarbonate Level 33 mmol/L (High)?? 02/21/2024 05:12 Anion Gap 10 ()?? 02/21/2024 05:12 Glucose Level 335 mg/dL (High)?? 02/20/2024 00:38 Glucose, POC 130 mg/dL (High)?? 02/22/2024 08:04 BUN 31 mg/dL (High)?? 02/21/2024 05:12 Creatinine-Blood 0.9 mg/dL ()?? 02/21/2024 05:12 Estimated GFR Creatinine 83 ML/MIN/1.73 M2 ()?? 02/21/2024 05:12 Calcium 9.6 mg/dL ()?? 02/20/2024 00:38 Phosphorus 3.7 mg/dL ()?? 02/21/2024 05:12 Magnesium 2.0 mg/dL ()?? 02/21/2024 05:12 Protein, Total 7.8 Gm/dL ()?? 02/14/2024 05:38 Albumin 4.0 Gm/dL ()?? 02/14/2024 05:38 AG Ratio 1.1 ()?? 02/14/2024 05:38 Alkaline Phosphatase 95 units/L ()?? 02/14/2024 05:38 AST (SGOT) 16 units/L ()?? 02/14/2024 05:38 ALT (SGPT) 11 units/L ()?? 02/14/2024 05:38 Bilirubin, Total 0.4 mg/dL ()?? 02/14/2024 05:38 Lactate 1.1 mmol/L ()?? 02/13/2024 22:12 ? ENDOCRINE/TUMOR MARKER TSH 1.18 uIU/mL ()?? 02/13/2024 22:12 ? FLUID STUDIES Body Fld Cult Not indicated. ()?? 02/15/2024 17:00 Note Bact Ag Cult Comment ()?? 02/15/2024 17:00 Spec Source S pneumo Urine ()?? 02/15/2024 17:00 Org ID S pneumo Not indicated. ()?? 02/15/2024 17:00 ?? HEME OTHER Hold Blue Top SPECIMEN DISCARDED AFTER 4 HOURS. ()?? 02/13/2024 22:12 ? MISC. CHEMISTRY Procalcitonin 0.13 ng/mL ()?? 02/15/2024 02:34 ? SEROLOGY INF DISEASE Legionella pneumophila Antigen NEGATIVE ()?? 02/15/2024 17:00 S. Pneumococcus Urinary Ag NEGATIVE ()?? 02/15/2024 17:00 ?? UA/URINALYSIS Appear/Color, Urine LIGHT YELLOW ()?? 02/14/2024 16:00 Clarity CLEAR ()?? 02/14/2024 16:00 Specific [place], Urine 1.011 ()?? 02/14/2024 16:00 pH, Urine 6.0 ()?? 02/14/2024 16:00 Albumin, Urine 1+ (Abnormal)?? 02/14/2024 16:00 Glucose, Urine NEGATIVE ()?? 02/14/2024 16:00 Ketones, Urine NEGATIVE ()?? 02/14/2024 16:00 Bilirubin, Urine NEGATIVE ()?? 02/14/2024 16:00 Hemoglobin, Urine NEGATIVE ()?? 02/14/2024 16:00 Nitrite, Urine NEGATIVE ()?? 02/14/2024 16:00 Leukocyte, Urine TRACE (Abnormal)?? 02/14/2024 16:00 Urobilinogen NORMAL mg/dL ()?? 02/14/2024 16:00 WBC's, Urine 5 /HPF ()?? 02/14/2024 16:00 RBC's, Urine 1 /HPF ()?? 02/14/2024 16:00 Bacteria SLIGHT HPF (Abnormal)?? 02/14/2024 16:00 Squamous Epith 1 /HPF ()?? 02/14/2024 16:00 Hyaline Cast 1 LPF ()?? 02/14/2024 16:00 Mucus SLIGHT /LPF ()?? 02/14/2024 16:00 Culture Indication CULTURE NOT INDICATED ()?? 02/14/2024 16:00 ? VIROLOGY Influenza A PCR NEGATIVE ()?? 02/13/2024 22:00 Influenza B PCR NEGATIVE ()?? 02/13/2024 22:00 RSV PCR NEGATIVE ()?? 02/13/2024 22:00 Adenovirus by PCR NEGATIVE ()?? 02/16/2024 14:17 Coronavirus 229E by PCR (not COVID-19) NEGATIVE ()?? 02/16/2024 14:17 Coronavirus HKU1 by PCR (not COVID-19) NEGATIVE ()?? 02/16/2024 14:17 Coronavirus NL63 by PCR (not COVID-19) NEGATIVE ()?? 02/16/2024 14:17 Coronavirus OC43 by PCR (not COVID-19) NEGATIVE ()?? 02/16/2024 14:17 Human Metapneumovirus by PCR NEGATIVE ()?? 02/16/2024 14:17 Rhinovirus/Enterovirus by PCR NEGATIVE ()?? 02/16/2024 14:17 Influenza A by PCR NEGATIVE ()?? 02/16/2024 14:17 Influenza B by PCR NEGATIVE ()?? 02/16/2024 14:17 Parainfluenza 1 by PCR NEGATIVE ()?? 02/16/2024 14:17 Parainfluenza 2 by PCR NEGATIVE ()?? 02/16/2024 14:17 Parainfluenza 3 by PCR NEGATIVE ()?? 02/16/2024 14:17 Parainfluenza 4 by PCR NEGATIVE ()?? 02/16/2024 14:17 RSV by PCR NEGATIVE ()?? 02/16/2024 14:17 Bordetella Pertussis by PCR NEGATIVE ()?? 02/16/2024 14:17 Chlamydophila Pneumoniae by PCR NEGATIVE ()?? 02/16/2024 14:17 Mycoplasma Pneumoniae by PCR NEGATIVE ()?? 02/16/2024 14:17 COVID-19 PCR Specimen Source NASAL ()?? 02/13/2024 22:00 COVID-19 PCR Result NEGATIVE ()?? 02/13/2024 22:00 COVID-19 (SARS-CoV-2) by PCR NEGATIVE ()?? 02/16/2024 14:17 Bordetella Parapertussis by PCR NEGATIVE ()?? 02/16/2024 14:17 ? 37_ minutes spent on discharge * Ion WARREN, Ai Jeronimo: PERFORM, SIGN, VERIFY Event Display: Case Management Discharge Plan Authored Date: Patient: ZULEIMA TEMPLE Age: 48 years Sex: Female : 1975 Associated Diagnoses: None Author: Ai Lemon RN Discharge Plan Case Management Discharge Plan : Case Management Discharge Plan Data 02/22/2024 10:02 EDT Discharge Level of Care at Discharge Homehealth/VNA Discharge VNA/Hospice/Home Care [facility] [phone] Discharge Transportation Arranged family Mode of Transportation Arranged car Agency Criminal Attorney #1 admissions Service Categories #1 Physical Therapy, Prison Service Comments #1 you have been set up with [facility] - they will call in 24-48 hours,if they do not please call agency 02/21/2024 13:42 EDT Discharge Medical Equipment [employer] [facility] [employer] * Maxx WARREN, Izzy Moran: PERFORM Event Display: Patient Education/Instruction Authored Date: Inpatient Adult Discharge Instructions. [address] [address] Name: ZULEIMA TEMPLE : 1975?? Visit: 02/13/2024 23:47?? Current Date: 02/22/2024 12:00 ?? Account: [id number]?? Inpatient Adult Discharge Instructions We would like to thank you for allowing us to assist you with your healthcare needs. The following includes patient education materials and information regarding your injury/illness. Our entire staffstrives to provide an excellent experience for our patients and their families. PLEASE ENSURE YOU FOLLOW-UP PER THE INSTRUCTIONS BELOW! ?? YOUR OPINION IS IMPORTANT TO US! Please complete the survey you may receive by mail or email. Your feedback will be used to make improvements to the healthcare experiences of our patients and their families. Surveys are administered by [employer] ?? If further treatment with your primary care physician or another doctor is recommended, it is important for you to keep the appointment. Call your primary care physician or return to the Emergency Department immediately if your condition worsens, fails to improve, or new symptoms develop. If you need to find a doctor, you can call [facility] for a referral at [phone] or toll free at [phone] Joyce [employer]HGSH ([phone]) or log in to [email or web address] ?? [facility], in keeping with [facility] guidance, no longer requires face masks for staff, patientsor visitors in most situations. Similiar to time spent indoors at other locations, there is the chance that you were exposed to repiratory viruses during your time with us (such as flu or COVID-19). If you develop symptoms concerning for a viral respiratory infection, please seek testing (and treatment if indicated) from your medical provider or home test kit. ?? You can view and manage your care through the patient portal or by using a health care radha of your choosing. [employer] is a website that allows you to securely view your medical information including your hospital discharge summary, office visit summaries, medications and follow-up visits. You can also request appointments, renew medications, and request access to your medical information using a health care radha of your choosing, or just ask a question. You can enroll at [email or web address] or register during your next office visit. You have been discharged from [facility], Patient Care Unit: S3??. If you have any questions regarding these instructions, including results of studies pending, afteryou leave, please call us and we will be happy to assist you 21/05. [facility] Your Care Team Attending Physician Blake MILLER, Jose Raul R?? Consulting Providers WickJose Raul awan MD?? Discharging Providers Jose Raul Lozano MD Reason for Your Visit Hypoxia?? Your Diagnosis Fever DMII POSSIBLE / SUSPECTED wxwyb-ad-wphvgye diastolic CHF exacerbation. Obesity hypoventilation syndrome POSSIBLE / SUSPECTED superimposed pneumonia Morbid obesity with BMI of 70 and over, adult CKD (chronic kidney disease), stage II Pulmonary hypertension Obesity, unspecified Diabetes mellitus type 2 in obese Asthma with acute exacerbation, unspecified asthma severity, unspecified whether persistent MAME (acute kidney injury) Asthma Chronic hypoxic respiratory failure Metabolic alkalosis REBEL (obstructive sleep apnea) Peripheral neuropathy Shortness of breath Viral syndrome Tests Performed Below is a partial list of the tests performed during your hospitalization. You may have had other tests and procedures not included in this list. Please discuss all test results with your provider. ABG Basic Metabolic Panel Blood Culture Blood Culture #2 Blood Culture 2 Results Blood Culture Result BUN CBC CBC w/ Differential Comprehensive Metabolic Panel COVID-19, RSV, and Flu A/B, Rapid PCR Creatinine Electrolytes GLUCOSE POC High??Sensitivity??Troponin T Hold Blue Top Tube Lactate Level Legionella Antigen Urine Lytes Magnesium Level Phosphorus Level ProBNP PROCALCITONIN, SERUM Respiratory Pathogen PCR with COVID-19 Strep Pneumoniae Urinary Ag TSH with T4 Reflex (Adults Only) Urinalysis Reflex Culture CT Angio Chest CXR Portable Portable Chest XR Chest Portable Add On Lab Order?? Sputum Culture w/ Gram Smear?? Primary Care Provider Hazel Valadez DO? Advance Directive Health Care Proxy on File Yes - Health Care Proxy Discharge Vitals Temperature: 98.4 DegF Weight: 182.9 kg Pulse Rate: 83 bpm ?? Respiratory Rate: 18 br/min ?? Systolic Blood Pressure: 124 mm Hg ?? Diastolic Blood Pressure:??87 mm Hg??High ?? Oxygen Saturation: 95 % ?? Studies Pending All studies ordered during this hospital stay have been completed unless listed below. Please discuss all pending results with your provider listed above in these instructions. ?? Add On Lab Order?? Sputum Culture w/ Gram Smear?? What to do next Instructions From Your Doctor ?? Orders??:Cardiac diet :Ambulate with assistance ??3 times a day ??unless otherwise specified Status: ??Full Resuscitation? 02/22/24 10:18:00 EDT?? You Need to Schedule the Following Appointments Follow Up with??Hazel Valadez DO When:??Within 1 week: call to discuss follow up visit Where: ?? Discharge Medications ZULEIMA TEMPLE :1975 Visit Date:02/13/2024 Medications: Please continue your medications until treatment is completed or stopped by your provider. Medications not listed below should be discontinued. Discuss any questions related to medications with your provider. What How Much When Instructions Next Dose New Durable Medical Equipment (Pen [place], 32 G x 4 mm BD Ultra Fine III) See instructions Duration: 90 Days use daily for insulin administration ?? Pickup at [facility] 3 New Insulin Glargine (Insulin Glargine Prefilled Pen 100 units/ mL subcutaneous solution) 20 unit(s) Subcutaneous Injection Daily at Bedtime Pickup at [facility] 3 next dose due tonight 02/21 at 9pm Changed Furosemide (furosemide 40 mg oral tablet) 1 tab(s) Oral Twice a day next dose due today 02/21 at 3pm Unchanged Albuterol (albuterol 0.083% inhalation solution) 3 Milliliter Inhalation Every 6 hours Duration: 30 Days take as directed and needed Unchanged Cholecalciferol (Vitamin D3 2000 intl units oral capsule) 1 capsule Oral Daily next dose due tomorrow 02/22 at 9am Unchanged Durable Medical Equipment (bariatric walker) See instructions for difficulty with ambulation ?? Unchanged Durable Medical Equipment (BIPAP SUPPLIES) See instructions BIPAP SUPPLIES REBEL G47.33 ?? Unchanged Durable Medical Equipment (BP monitor and cuff) See instructions to check BP daily. ICD code I10 ?? Unchanged Durable Medical Equipment (Freestyle jorden 2 sensors 14 day) See instructions check blood glucose 3 times daily DX: DM type 2, E11.9 ?? Unchanged Durable Medical Equipment (Freestyle Jorden Monitor) See instructions Duration: 30 Days use as directed for Type 2 Diabetes Mellitus ?? Unchanged Durable Medical Equipment (Freestyle Lite Lancets) See instructions use to check bs daily dx e11.9 ?? Unchanged Durable Medical Equipment (Freestyle Lite Monitor) See instructions use to check bs daily dx E11.9 ?? Unchanged Durable Medical Equipment (Freestyle Lite Test Strips) See instructions use to check bs daily dx E11.9 ?? Unchanged Durable Medical Equipment (Freestyle Precision [place] Blood Glucose Test Strips) See instructions check blood glucose 3 times daily DX: DM type 2, E11.9 ?? Unchanged Durable Medical Equipment (Oxygen Supplies) See instructions 2-3 L VIA NASAL CANNULA USE NIGHTLY WITH CPAP RESPIRATORY FAILURE HYPOXIA REBEL G47.33 R09.02 ?? Unchanged Durable Medical Equipment (Shower Chair) See instructions bariatric chair. Pt unable to stand for duration of shower d/ t M19.90, N17.10 G47.34,R09.02,R60.0,E66.01,M77.9,E11.9 ?? Unchanged Durable Medical Equipment (Shower Grab Bars) See instructions I50.30 M19.90 ?? Unchanged Durable Medical Equipment (Walker) See instructions Dispense: Heavy Duty wheeled walker with seat and brakes Dx: Morbid obesity ?? Unchanged Fluticasone-Salmeterol (Advair Diskus 250 mcg-50 mcg inhalation powder) 1 puff(s) Inhalation Twice a day next dose due tonight 02/21 at 9pm Unchanged Gabapentin (gabapentin 300 mg oral capsule) 1 capsule Oral Twice a day for back pain ?? next dose due tonight 02/21 at 9pm Unchanged Ibuprofen (ibuprofen 800 mg oral tablet) 1 tab(s) Oral 3 times a day prn pain, take with food ?? take as directed and needed Unchanged Miscellaneous Rx (bedside commode) See instructions dx: CHF, REBEL, obesity, decrease strength and mobility ?? Unchanged Miscellaneous Rx (rolling walker) See instructions dx: CHF, REBEL, obesity, decrease strength and mobility ?? Unchanged Multivitamin (multivitamin Multiple Vitamins oral capsule) 1 capsule Oral Daily next dose due tomorrow 02/22 at 9am Pharmacy Information [facility] 3: [address], [place] [id number] [phone] ?? What How Much When Comments Stop Taking Metformin (metFORMIN 1000 mg oral tablet) 1 tab(s) Oral Twice a day Prescription Given During Visit Durable Medical Equipment (Pen [place], 32 G x 4 mm BD Ultra Fine III) - , # 90 each, 0 Refills, use daily for insulin administration, [facility], [address] [place] [phone]?? Insulin Glargine (Insulin Glargine Prefilled Pen 100 units/mL subcutaneous solution) - 20 units, Subcutaneous Injection, Daily at bedtime, # 15 mL, 0 Refills, [facility], [address] [place] [phone]?? Laboratory Results Below is a partial list of the most recent Laboratory test results done prior to this discharge. You may have had other tests and procedures not included in this list. Please discuss all test resultswith your provider. ABG (02/16/2024) ???pH - 7.35???pCO2 - 76 mm Hg???pO2 - 84 mm Hg???Bicarbonate, Estimated - 41 mmol/L???Specimen Type - Blood Gas - ARTERIAL???Percent O2 (FIO2) - 50 Basic Metabolic Panel (02/20/2024) ???Sodium - 137 mmol/L???Potassium - 4.7 mmol/L???Chloride - 93 mmol/L???Bicarbonate Level - 35 mmol/L???Anion Gap - 9???Glucose Level - 335 mg/dL???BUN - 34 mg/dL???Creatinine-Blood - 1.0 mg/dL???Estimated GFR Creatinine - 73 ML/MIN/1.73 M2???Calcium - 9.6 mg/dL Blood Culture (02/13/2024) ???Blood Culture Results - Final report???Blood Culture Specimen Source - BLOOD Blood Culture #2 (02/14/2024) ???Blood Cult 2 Results - Final report???Blood Culture 2 Specimen Source - BLOOD Blood Culture 2 Results (02/14/2024) ???Blood Culture 2 Isolate 1 - Comment Blood Culture Result (02/13/2024) ???Blood Culture Isolate 1 - Comment BUN (02/21/2024) ???BUN - 31 mg/dL CBC (02/21/2024) ???WBC - 15.5 k/mm3???RBC - 4.65 m/mm3???Hgb - 13.9 Gm/dL???Hct - 43.0 %???MCV - 92.5 femtoliters???MCH - 29.9 pg???MCHC - 32.3 g/dL???Platelet Count - 310 k/mm3???RDW-SD - 41.4 femtoliters???MPV - 10.3 femtoliters???Nucleated RBC (Automated) - 0.0 #/100 WBC'S???Abs. NRBC - 0.0 k/mm3 CBC w/ Differential (02/20/2024) ???WBC - 13.0 k/mm3???RBC - 4.63 m/mm3???Hgb - 14.1 Gm/dL???Hct - 42.9 %???MCV - 92.7 femtoliters???MCH - 30.5 pg???MCHC - 32.9 g/dL???Platelet Count - 302 k/mm3???RDW-SD - 40.5 femtoliters???MPV - 10.4 femtoliters???Nucleated RBC (Automated) - 0.0 #/100 WBC'S???Abs. NRBC - 0.0 k/mm3???Abs. Neut - 9.4 k/mm3???Abs. Lymph - 2.0 k/mm3???Abs. Geary - 1.0 k/mm3???Abs. Eo - 0.0 k/mm3???Abs. Baso - 0.1 k/mm3???Neut % - 72.1 %???Lymph % - 15.3 %???Geary % - 8.0 %???Eos % - 0.0 %???Baso % - 0.5 %???Imm Gran - 4.1 %???Abs. Imm Gran - 0.5 k/mm3 Comprehensive Metabolic Panel (02/14/2024) ???Sodium - 137 mmol/L???Potassium - 4.5 mmol/L???Chloride - 97 mmol/L???Bicarbonate Level - 28 mmol/L???Anion Gap - 12???Glucose Level - 283 mg/dL???BUN - 15 mg/dL???Creatinine-Blood - 1.0 mg/dL???Estimated GFR Creatinine - 70 ML/MIN/1.73 M2???Calcium - 9.2 mg/dL???Protein, Total - 7.8 Gm/dL???Albu min - 4.0 Gm/dL???AG Ratio - 1.1???Alkaline Phosphatase - 95 units/L???AST (SGOT) - 16 units/L???ALT (SGPT) - 11 units/L???Bilirubin, Total - 0.4 mg/dL COVID-19, RSV, and Flu A/B, Rapid PCR (02/13/2024) ???Influenza A PCR - NEGATIVE???Influenza B PCR - NEGATIVE???RSV PCR - NEGATIVE???COVID-19 PCR Specimen Source - NASAL???COVID-19 PCR Result - NEGATIVE Creatinine (02/21/2024) ???Creatinine-Blood - 0.9 mg/dL???Estimated GFR Creatinine - 83 ML/MIN/1.73 M2 Electrolytes (02/15/2024) ???Sodium - 134 mmol/L???Potassium - 4.8 mmol/L???Chloride - 97 mmol/L???Bicarbonate Level - 30 mmol/L???Anion Gap - 7 GLUCOSE POC (02/22/2024) ???Glucose, POC - 171 mg/dL High??Sensitivity??Troponin T (02/13/2024) ???High Sensitivity Troponin (HSTnT) - 8 ng/L Hold Blue Top Tube (02/13/2024) ???Hold Blue Top - SPECIMEN DISCARDED AFTER 4 HOURS. Lactate Level (02/13/2024) ???Lactate - 1.1 mmol/L Legionella Antigen Urine (02/15/2024) ???Legionella pneumophila Antigen - NEGATIVE Lytes (02/21/2024) ???Sodium - 139 mmol/L???Potassium - 4.4 mmol/L???Chloride - 96 mmol/L???Bicarbonate Level - 33 mmol/L???Anion Gap - 10 Magnesium Level (02/21/2024) ???Magnesium - 2.0 mg/dL Phosphorus Level (02/21/2024) ???Phosphorus - 3.7 mg/dL ProBNP (02/21/2024) ???Nt-Probnp - 52 pg/mL PROCALCITONIN, SERUM (02/15/2024) ???Procalcitonin - 0.13 ng/mL Respiratory Pathogen PCR with COVID-19 (02/16/2024) ???Adenovirus by PCR - NEGATIVE???Coronavirus 229E by PCR (not COVID-19) - NEGATIVE???Coronavirus HKU1 by PCR (not COVID-19) - NEGATIVE???Coronavirus NL63 by PCR (not COVID-19) - NEGATIVE???Coronavirus OC43 by PCR (not COVID-19) - NEGATIVE???Human Metapneumovirus by PCR - NEGATIVE???Rhinovirus/Enterovirus by PCR - NEGATIVE???Influenza A by PCR - NEGATIVE???Influenza B by PCR - NEGATIVE???Parainfluenza 1 by PCR - NEGATIVE???Parainfluenza 2 by PCR - NEGATIVE???Parainfluenza 3 by PCR - NEGATIVE???Parainfluenza 4 by PCR - NEGATIVE???RSV by PCR - NEGATIVE???Bordetella Pertussis by PCR - NEGATIVE??? Chlamydophila Pneumoniae by PCR - NEGATIVE???Mycoplasma Pneumoniae by PCR - NEGATIVE???COVID-19 (SARS-CoV-2) by PCR - NEGATIVE???Bordetella Parapertussis by PCR - NEGATIVE Strep Pneumoniae Urinary Ag (02/15/2024) ???S. Pneumococcus Urinary Ag - NEGATIVE???Body Fld Cult - Not indicated.???Note Bact Ag Cult - Comment???Spec Source S pneumo - Urine???Org ID S pneumo - Not indicated. TSH with T4 Reflex (Adults Only) (02/13/2024) ???TSH - 1.18 uIU/mL Urinalysis Reflex Culture (02/14/2024) ???Appear/Color, Urine - LIGHT YELLOW???Clarity - CLEAR???Specific [place], Urine - 1.011???pH, Urine - 6.0???Albumin, Urine - 1+???Glucose, Urine - NEGATIVE???Ketones, Urine - NEGATIVE???Bilirubin, Urine - NEGATIVE???Hemoglobin, Urine - NEGATIVE???Nitrite, Urine - NEGATIVE???Leukocyte, Urine - TRAC E???Urobilinogen - NORMAL???WBC's, Urine - 5 /HPF???RBC's, Urine - 1 /HPF???Bacteria - SLIGHT???Squamous Epith - 1 /HPF???Hyaline Cast - 1 LPF???Mucus - SLIGHT???Culture Indication - CULTURE NOT INDICATED Allergies (NKA means No Known Allergies) sulfamethoxazole??(itch) Problems Active Problems??(14) Arthritis of knees?? Asthma?? [id number]?? Cholesteatoma of ear?? Complex ovarian cyst - see 2012 US?? DMII?? Heart failure with preserved ejection fraction?? Hypoxia - desat on ambulation 02/10/19 (workup pending)?? Mixed Conductive and Sensorineural Hearing Loss?? Morbid obesity with BMI of 70 and over, adult?? REBEL - Obstructive sleep apnea, severe (PSG 2011) -> not on home CPAP?? Osteoarthritis?? Oxygen desaturation during sleep ??75% in 2012?? Severe obesity?? Education Materials Below is the list of Educational Leaflet Providered with your Discharge Instructions. Valuables and Belongings I fully understand and agree that [facility] accepts no responsibility for all my personal property including clothing, toilet articles, radios, jewelry, dentures, hearing aids, rings, money, or any other property that is in my possession or is brought to me after admission. I understand certain valuables may be placed in a hospital safe for a short period of time. I understand that the hospital is not liable for loss or damage due to accident, fire, or other natural occurrence while said property is in the safe. I accept full responsibility for any personal property that I keep with me, and will not hold the hospital responsible in case of loss or disappearance. I acknowledge that i have been encouraged to send valuables and belongings home. ?? No Valuables/Belongings: No valuables/belongings present Review of Valuable and Belonging List: With patient Date for Pt to Sign Valuables/Belongings: 02/22/24 11:08:00 ?? Other Discharge Information ? Case Management Discharge Plan?? Discharge Plan?? Discharge Agency Information?? Discharge Level of Care at Discharge: Homehealth/VNA Agency Criminal Attorney #1: admissions Discharge Transportation Arranged: family Service Categories #1: Physical Therapy, Prison Mode of Transportation Arranged: car Service Comments #1: you have been set up with [facility] - they will call in 24-48 hours, if they do not please call agency Discharge VNA/Hospice/Home Care: [facility] [phone] ?? Discharge Medical Equipment Companies: [employer] ? Pulmonary Rehab Status?? Pulmonary Rehab Discharge Status?? Patient Going Home on Oxygen: Yes Oxygen Device used at Home: Nasal cannula Liter flow: 2 LPM Oxygen Use Duration: At rest Oxygen Device used at Home (secondary): Nasal cannula Liter flow (secondary): 3 LPM Oxygen Use Duration (secondary): With activity Further Oxygen Instructions: Continue to BIPAP with 6L oxygen at night and with naps CPAP/BiPAP Mask Type: Full CPAP/BiPAP Mask Size: Large Respiratory Rate: 18 br/min Discharge Medical Equipment Companies: [employer] Home care instructions: Call [facility] when you get home., An appointment has been scheduled with a pulmonary nurse. Nurse Communication (Pulmonary Rehab): Someone from Pulmonary Rehab at [address] - 2nd floor willcontact you for a follow up oxygen evaluation in 2-3 weeksPlease call [facility] when you get home for oxygen delivery. Informational handouts: Oxygen Therapy ? Common Emergency Awareness Tips IS IT A STROKE? Act FAST and Check for these signs: FACE Does the face look uneven? ARM Does one arm drift down? SPEECH Does their speech sound strange? TIME Call at any sign of stroke ?? Heart Attack Signs Chest discomfort: Most heart attacks involve discomfort in the center of the chest and lasts more than a few minutes, or goes away and comes back. It can feel like uncomfortable pressure, squeezing, fullness or pain. Discomfort in upper body: Symptoms can include pain or discomfort in one or both arms, back, neck, jaw or stomach. Shortness of breath: With or without discomfort. Other signs: Breaking out in a cold sweat, nausea, or lightheaded. Remember, MINUTES DO MATTER. If you experience any of these heart attack warning signs, call to get immediate medical attention! ?? Smoking can increase your chances of developing chronic health problems and can cause harmful effects to other family members in your house. If you smoke, you are strongly encouraged to quit. Please call [facility] [employer] Link at [phone] or [phone] ([phone]) or log in to [email or web address] for referrals to smoking cessation programs. ?? 988 Suicide & Crisis Lifeline is available 21/05 if you or someone you know needs to find a reason to keep living. By calling 878 you'll be connected to a skilled, trained counselor at a crisis center in your area. INPATIENT DISCHARGE INSTRUCTIONS SIGNATURE PAGE ZULEIMA TEMPLE Location:[facility] Registration Date and Time:02/13/2024 23:47 EDT Primary Care Physician: Hazel Valadez DO, Attending Physician: Balke MILLER, Jose Raul James, I WINDYZULEIMA, have received the above patient education materials/instructions and have verbalized understanding. If ambulance or transport services are being used I further acknowledge being given a choice of service. ?? If you need to contact me, please call me at this number: . Patient/Attendant Self Service Store Name: Patient/Attendant [facility] [employer] Store Signature: Relationship to Patient: Witness Name/Signature: Date: * Izzy Lilly RN: PERFORM Event Display: Patient Education Leaflets Authored Date: [id number] Insulin Glargine Pen Injector ?? [address] Insulin Glargine Pen Injector Brands: Basaglar, Lantus, Rezvoglar, Semglee Uses For diabetes. ?? Instructions This medicine is used by injecting it into the skin. Please ask your doctor, nurse or pharmacist for the correct places on your body where this medicine can be injected. This insulin should be used once a day. Use at the same time each day. This insulin does not need to be mixed before using. This insulin should be clear and colorless. Do not use if it appears discolored, thickened or contains any particles. Store the insulin pen in the refrigerator until ready to use. Do not allow it to freeze. Remove the insulin from the refrigerator when you are ready to use it. Do not return the medicine to the refrigerator after you start using it. Discard the injectable pen 28 days after first use, even if there is insulin left in the pen. Throw away any insulin if it was frozen. Keep the insulin that you are using at room temperature and protected from light and heat. Discard any insulin if it is exposed to temperature greater than 86?? F (30?? C). Never use any insulin that has . Throw it away. Do not inject into skin that has lumps, pits, or is thickened. Change the location of the injection each time. Choose a location at least 1 inch from the last injection. Do not rub or massage the area where the injection was given. Tell your doctor and pharmacist about all your medicines. Include prescription and [id number], vitamins, and herbal medicines. Before using insulin, you should be taught by your doctor or a certified master safecracker. Follow their instructions carefully. If you have not been trained, speak with your doctor before using thismedicine. Be sure to follow your regular meal plan and exercise as discussed with your doctor. It is very important that you use your medicine every day and that you do not miss any dose of yourinsulin. Have a discussion with your doctor about what you should do in case you miss an insulin dose. ?? Cautions Tell your doctor and pharmacist if you ever had an allergic reaction to a medicine. Monitor your blood sugar as instructed by your doctor. Adjust the amount of insulin only as recommended by your doctor. Your ability to stay alert or to react quickly may be impaired by this medicine. Do not drive or operate machinery until you know how this medicine will affect you. Please check with your doctor before drinking alcohol while on this medicine. Tell the doctor or pharmacist if you are , planning to be , or . This medicine passes into breast milk. Ask your doctor before . Always carry an ID card or wear a medical alert bracelet showing that you are diabetic. Carry glucose tablets or hard candy with you in case you experience low blood sugar from the insulin. Symptoms of low blood sugar may include nausea, shaking, sweating, cold skin, fast heartbeat, hunger, and irritability. Do not start or stop any other medicines without first speaking to your doctor or pharmacist. Ask your pharmacist how to properly throw away used needles or syringes. ?? Side Effects The following is a list of some common side effects from this medicine. Please speak with your doctor about what you should do if you experience these or other side effects. ??? swelling of the legs, feet, and hands ??? pain, redness, swelling near injection ??? weight gain Call your doctor or get medical help right away if you notice any of these more serious side effects: ??? dizziness ??? numbness or tingling in hands and feet ??? low blood sugar ??? muscle cramps or weakness ??? rapid heartbeat ??? shakiness ??? sweating ??? blurring or changes of vision A few people may have an allergic reaction to this medicine. Symptoms can include difficulty breathing, skin rash, itching, swelling, or severe dizziness. If you notice any of these symptoms, seek medical help quickly. ?? Extra Please speak with your doctor, nurse, or pharmacist if you have any questions about this medicine. ?? [email or web address] [employer] [email or web address] IMPORTANT NOTE: This document tells you briefly how to take your medicine, but it does not tell youall there is to know about it. Your doctor or pharmacist may give you other documents about your medicine. Please talk to them if you have any questions. Always follow their advice. There is a more complete description of this medicine available in Indonesian. Scan this code on your smartphone or tablet or use the web address below. You can also ask your pharmacist for a printout. If you have any questions, please ask your pharmacist. The display and use of this drug information is subject to Terms of Use. Copyright(c) 2023 [employer]. ?? The [employer]. All rights reserved. This information is not intended as a substitute for professional medical care. Always follow your healthcare professional's instructions. ?? * Izzy Lilly RN: PERFORM Event Display: Patient Education Leaflets Authored Date: [id number] Basics for the Diabetic Diet ?? Basics for the Diabetic Diet - Video Can patients with diabetes consume sugar without making their blood glucose skyrocket? Dr. Hira Barker explains how. To view the video go to this web address: [email or web address] Or, scan this QR code with your smart phone ?? The [employer]. All rights reserved. This information is not intended as a substitute for professional medical care. Always follow your healthcare professional's instructions. ?? * Izzy Lilly RN: PERFORM Event Display: Patient Education Leaflets Authored Date: [id number]: Choosing an Insulin Injection Site ?? Yqzo-ak-Ofmm: Choosing an Insulin Injection Site - Video This video shows the steps for choosing an insulin injection site. To view the video go to this web address: [email or web address] Or, scan this QR code with your smart phone Last Reviewed Date: 2020 ?? 5447-4365 The [employer]. All rights reserved. This information is not intended as a substitute for professional medical care. Always follow your healthcare professional's instructions. ?? * Kassandra Smith RN: PERFORM Event Display: Discharge/Transfer Note Hospital Authored Date: [id number] Pulmonary Rehab Discharge Status Entered On: 02/21/2024 13:44 EDT Performed On: 02/21/2024 13:42 EDT by Kassandra Smith RN Pulmonary Rehab Discharge Status Nurse Communication (Pulmonary Rehab) : Someone from Pulmonary Rehab at [address] - 2nd floor will contact you for a follow up oxygen evaluation in 2-3 weeks Please call [facility] when you get home for oxygen delivery. Kassandra Smith RN - 02/21/2024 15:58 EDT Patient Going Home on Oxygen : Yes Oxygen Device used at Home : Nasal cannula Liter flow : 2 LPM Oxygen Use Duration : At rest Oxygen Device used at Home (secondary) : Nasal cannula Liter flow (secondary) : 3 LPM Oxygen Use Duration (secondary) : With activity Further Oxygen Instructions : Continue to BIPAP with 6L oxygen at night and with naps Discharge Medical Equip [employer] : [facility] K[facility] Smith RN - 02/21/2024 13:42 EDT Home care instructions : Call company when you get home., An appointment has been scheduled with a pulmonary nurse. Kassandra Smith RN - 02/21/2024 15:58 EDT Informational handouts : Oxygen Therapy Kassandra Smith RN 02/21/2024 13:42 EDT Patient Care team information Care Team Personnel Name: Becca Crain RN Position: [facility] RN Member Role: Primary Care Nurse Name: Opal Renteria RN Position: [facility] RN Member Role: Primary Care Nurse Name: Jayna Sandhu RN Position: [facility] RN Member Role: Primary Care Nurse Name: Maty Valencia RN Position: [facility] RN Member Role: Primary Care Nurse Name: Christiano Rosenbaum RN Position: [facility] RN Member Role: Primary Care Nurse Name: Hema Lyn RN Position: [facility] RN Member Role: Primary Care Nurse Name: Roger Peña RN Position: [facility] RN Supv Member Role: Primary Care Nurse Name: Hira Black RN Position: [facility] RN Member Role: Primary Care Nurse Name: Mihir Jackson RN Position: [facility] RN Member Role: Primary Care Nurse Name: Danya Roman RN Position: [facility] RN Member Role: Primary Care Nurse Name: Ashley Brownlee RN Position: [facility] ED RN W/OE and Tasks Member Role: Primary Care Nurse Name: Elma Caruso (INSTR) Position: S RN Member Role: Primary Care Nurse Name: Sowmya Hooks LPN Position: [facility] RN Member Role: Primary Care Nurse Name: Amanda Huerta RN Position: S RN Member Role: Primary Care Nurse Name: Yessica Stock RN Position: S RN Member Role: Primary Care Nurse Name: Hazel Valadez DO Position: [facility] Resident Member Role: PCP Address: Address: [address] [place], [place] [address] Name: Lizzette Barrientos RN Position: S RN Member Role: Primary Care Nurse Name: Nathanael Lawrence RN Position: S RN Member Role: Primary Care Nurse Name: Zoe Falcon RN Position: [facility] RN Member Role: Primary Care Nurse Name: Jayna Escamilla RN Position: [facility] RN Member Role: Primary Care Nurse Name: Juli Calles RN Position: [facility] RN Member Role: Primary Care Nurse Name: Tahmina Choi Position: [facility] RN Member Role: Primary Care Nurse Name: Magdi Gutierrez RN Position: [facility] RN Member Role: Primary Care Nurse Care Team Related Persons Name: ZULEIMA MCKEON Address: [place] [address] Name: ZAYRA STREETER Address: home [address] [place] [address] Name: LUCITA TEMPLE Address: home Name: LARA TEMPLE Address: home [address] [place] [address] Name: JUSTIN HINES
--- OUTSIDE RECORDS SUMMARY | 2024-04-04 10:10 | XMS_ITS | Continuity of Care Document ---
Author Organization [facility] Address [address] [place] [address]- Care Team Providers Care Transfer Table Operator Name Role Phone Allyson ARMSTRONG Hazel Primary Care Physician [facility] 08[facility]23 - 08/31/23 [facility] [address], [place] [address] Allergies, Adverse Reactions, Alerts Substance [...] Reason: Med Not Available 2Result Comment: [10/30/2014] [id number] 3Admin Note: VIS GIVEN DATED: 04/29/12 4Admin Note: vis given 05/23/11 5Admin Note: VIS GIVEN-DATED 06/07/10 6Admin Note: vis give dated 08/03/09 7Admin Note: VIS GIVEN VIS DATE 05/08/06 Medications albuterol 0.083% inhalation solution 3 mL = 2.5 mg, Inhalation, Every 6 hours, # 360 mL, 11 Refills, Maintenance, 07/17/22 11:50:00 EDT,Solution, [email or web address] #[id number], 152, cm, 07/12/22 13:07:00 EDT, Height, 175.5, [...] 03/31/23 21:58:00 EDT, Route to Pharmacy Electronically, [email or web address] #[id number], Partial fill upon patient request if the [...] 01/07/25 17:08:00 EDT, Route to Pharmacy Electronically, [email or web address] #[id number], 149.86, cm, 02/09/23 15:52:00 EDT, Height, 172.3, kg, 11/26/22 5:4... Start Date: 01/07/25 Stop Date: 12/23/27 Status: Ordered furosemide 40 mg oral tablet 40 mg, 1, tablet, By Mouth, 2 times a day, for 90 days, # 180 tablet, Refills 11, Tot. Refills 11, Hard Stop 01/07/25 17:08:00 EDT, 01/23/22 17:08:00 EDT, Route to Pharmacy Electronically, [email or web address] #[id number], 152, cm, 06/17/21 8:41:00 EDT, He... Start Date: 01/23/22 Stop Date: 01/07/25 Status: Ordered gabapentin 100 mg oral capsule 100 mg, 1, capsule, By Mouth, 3 times a day, # 90 capsule, Refills 0, Tot. Refills 0, Maintenance, 12/14/22 17:21:00 EST, Route to Pharmacy Electronically, [email or web address] #[id number], Partial fill upon patient request if the prescription is for a kelly... Start Date: 12/14/22 Status: Ordered ibuprofen 800 mg oral tablet 800 mg, 1, tablet, By Mouth, 3 times a day, for pain with food or milk, # 30 tablet, Refills 0, Tot. Refills 0, Maintenance, 02/09/23 17:06:00 EDT, Route to Pharmacy Electronically, [email or web address] #[id number], Partial fill upon patient request if th... Start Date: 02/09/23 Status: Ordered metFORMIN 1000 mg oral tablet 1 tablet = 1,000 mg, By Mouth, 2 times a day, # 60 tablet, 11 Refills, Maintenance, 07/12/22 13:42:00 EDT, Tablet, [facility] #[id number], cancel previous metformin scripts, 152, cm, 07/12/22 13:07:00 EDT, Height, 175.5, kg, 08/09/20 0:18:00 EDT,... Start Date: 07/12/22 Status: Ordered multivitamin Multiple Vitamins oral capsule 1 capsule, By Mouth, Daily, # 30 capsule, 0 Refills, Maintenance, 03/23/23 7:59:00 EDT, Capsule, [facility] #[id number], Partial fill upon patient request if the [...] 11 Refills, Maintenance, 04/21/22 12:34:00 EDT, Powder, [facility] #[id number], Partial fill upon patient request if the prescription is for a schedule II opioid drug., 1 puffs... Start Date: 04/21/22 Stop Date: 04/16/23 Status: Ordered Vitamin D3 2000 intl units oral capsule 1 capsule = 2,000 International_Units, By Mouth, Daily, # 60 capsule, 2 Refills, Maintenance, 07/17/22 16:56:00 EDT, Capsule, [facility] #[id number], Partial fill upon patient request if the [...] Confirmed Active DMII Confirmed Active 1DrRyder Wade [phone], Norma. Dx 06/07/09 Social History Social History Type Response Smoking Status Former smoker, quit more than 30 days ago entered on: 06/11/19 Sex Patient Care team information Care Team Personnel Name: Becca Crani RN Position: [facility] RN Member Role: Primary Care Nurse Name: Jayna Sandhu RN Position: S RN Member Role: Primary Care Nurse Name: Maty Valencia RN Position: [facility] RN Member Role: Primary Care Nurse Name: Roger Peña RN Position: [facility] RN Supv Member Role: Primary Care Nurse Name: Mihir Jackson RN Position: S RN Member Role: Primary Care Nurse Name: Danya Roman RN Position: [facility] RN Member Role: Primary Care Nurse Name: Ashley Brownlee RN Position: [facility] ED RN W/OE and Tasks Member Role: Primary Care Nurse Name: Elma Caruso (INSTR) Position: [facility] RN Member Role: Primary Care Nurse Name: Amanda Huerta RN Position: [facility] RN Member Role: Primary Care Nurse Name: Yessica Stock Position: [facility] RN Member Role: Primary Care Nurse Name: Hazel Valadez DO Position: [facility] Resident Member Role: PCP Address: Address: [address] [place] [address] [place], [place] [address] Name: Juli Calles RN Position: [facility] RN Member Role: Primary Care Nurse Care Team Related Persons Name: LINDA ZULEIMA Address: [place] [address] Name: LUCITA TEMPLE Address: home Name: LARA TEMPLE Name: JUSTIN HINES
--- OUTSIDE RECORDS SUMMARY | 2024-04-04 10:10 | XMS_ITS | Continuity of Care Document ---
Author Organization [facility] Address [address] [place] [address]- Care Team Providers Care Bee Rancher Name Role Phone Hazel Valadez DO Primary Care Physician [phone] [facility] 07[facility]22 - 08/30/22 [facility] [address] [place] [address]- Allergies, Adverse Reactions, Alerts Substance Reaction Severity [...] Reason: Med Not Available 3Result Comment: [10/30/2014] [id number] 4Admin Note: VIS GIVEN DATED: 04/29/12 5Admin Note: vis given 05/23/11 6Admin Note: VIS GIVEN-DATED 06/07/10 7Admin Note: vis give dated 08/03/09 8Admin Note: VIS GIVEN VIS DATE 05/08/06 Medications albuterol 0.083% inhalation solution 3 mL = 2.5 mg, Inhalation, Every 6 hours, # 360 mL, 11 Refills, Maintenance, 07/17/22 11:50:00 EDT,Solution, [email or web address] #[id number], 152, cm, 07/12/22 13:07:00 EDT, Height, 175.5, kg, 08/09/20 0:18:00 EDT, Dry Weight Start Date: 07/17/22 Stop Date: 07/12/23 Status: Ordered albuterol CFC free 90 mcg/inh inhalation aerosol 2, puffs, Inhalation, 4 times a day, PRN, FOR WHEEZING AND SHORTNESS OF BREATH, # 1 each, Refills 5, Tot. Refills 5, Maintenance, 08/24/21 20:48:00 EDT, Route to Pharmacy Electronically, [id number], [facility] #[id number]... Start Date: 08/24/21 Stop Date: 02/20/22 Status: Ordered BP monitor and cuff BP [...] 152, cm,07/12/22 13:07:00 EDT, Height, 175.5, kg, 10/12/2... Start Date: 07/12/22 Status: Ordered Freestyle Jorden [...] 01/23/22 17:08:00 EDT, Route to Pharmacy Electronically, [email or web address] #[id number], 152, cm, 06/17/21 8:41:00 EDT, Height, 175.5, kg, 08/09/20 0:18:00... Start Date: 01/23/22 Stop Date: 01/07/25 Status: Ordered gabapentin 100 mg oral capsule 100 mg, 1, capsule, By Mouth, 3 times a day, # 90 capsule, Refills 0, Tot. Refills 0, Maintenance, 07/12/22 14:00:00 EDT, Route to Pharmacy Electronically, [email or web address] #[id number], Partial fill upon patient request if the prescription is for a kelly... Start Date: 07/12/22 Status: Ordered hydrOXYzine hydrochloride 25 mg oral tablet 1 tablet = 25 mg, By Mouth, 4 times a day, PRN for anxiety, # 40 tablet, 1 Refills, Maintenance, 07/12/22 13:42:00 EDT, Tablet, [facility] #[id number], Partial fill upon patient request if the prescription is for a schedule II opioid drug., 152,... Start Date: 07/12/22 Stop Date: 09/10/22 Status: Ordered lisinopril 5 mg oral tablet 5 mg, 1, tablet, By Mouth, Daily, # 30 tablet, Refills 2, Tot. Refills 2, Maintenance, 07/17/22 17:03:00 EDT, Route to Pharmacy Electronically, [email or web address] #[id number], Please disregard 10mg dosing, 152, cm, 07/12/22 13:07:00 EDT, Height, 175.5, k... Start Date: 07/17/22 Status: Ordered metFORMIN 1000 mg oral tablet 1 tablet = 1,000 mg, By Mouth, 2 times a day, # 60 tablet, 11 Refills, Maintenance, 07/12/22 13:42:00 EDT, Tablet, [facility] #[id number], cancel previous metformin scripts, 152, cm, 07/12/22 [...] 10 Refills, Maintenance, 10/14/20 15:09:00 EST, Tablet, [facility] #[id number], 152, cm, 08/13/20 13:28:00 EDT, Height, 175.5, [...] 11 Refills, Maintenance, 04/21/22 12:34:00 EDT, Powder, [facility] #[id number], Partial fill upon patient request if the prescription is for a schedule II opioid drug., 1 puffs... Start Date: 04/21/22 Stop Date: 04/16/23 Status: Ordered Trulicity Pen 0.75 mg/0.5 mL subcutaneous solution 0.5 mL = 0.75 mg, Subcutaneous Injection, Every week, rotate injection sites, # 2 mL, 3 Refills, Maintenance, 07/12/22 14:01:00 EDT, Solution, [facility] #[id number], Partial fill upon patient request if the prescription is for a schedule II opio... Start Date: 07/12/22 Status: Ordered Vitamin D3 2000 intl units oral capsule 1 capsule = 2,000 International_Units, By Mouth, Daily, # 60 capsule, 2 Refills, Maintenance, 07/17/22 16:56:00 EDT, Capsule, [facility] #[id number], Partial fill upon patient request if the [...] Confirmed Active DMII Confirmed Active 1DrRyder Wade [phone], Norma. Dx 06/07/09 Social History Social History Type Response Smoking Status Former smoker, quit more than 30 days ago entered on: 06/11/19 Sex Patient Care team information Personnel Name: Hazel Valadez DO Address: Address: [address] [place] [address]
--- OUTSIDE RECORDS SUMMARY | 2024-04-04 10:10 | XMS_ITS | Continuity of Care Document ---
Author Organization [facility] Address [address] [place] [address]- Care Team Providers Care Insurance Verification Rep Name Role Phone Hazel Valadez DO Primary Care Physician [facility] - 11/11/23 [facility] [address] [place] [address]- Attending Physician: Not on Staff, Attending MD [...] Reason: Med Not Available 2Result Comment: [10/30/2014] [id number] 3Admin Note: VIS GIVEN DATED: 04/29/12 4Admin Note: vis given 05/23/11 5Admin Note: VIS GIVEN-DATED 06/07/10 6Admin Note: vis give dated 08/03/09 7Admin Note: VIS GIVEN VIS DATE 05/08/06 Medications Advair Diskus 250 mcg-50 mcg inhalation powder 1, puffs, Inhalation, 2 times a day, # 28 each, Refills 0, Tot. Refills 0, Maintenance, 09/06/23 14:10:00 EST, Powder, Route to Pharmacy Electronically, [id number], [facility] #[id number], 153, cm, 08/19/23 2:04:00 EDT,... Start Date: 09/06/23 Status: Ordered albuterol 0.083% inhalation solution 3 mL = 2.5 mg, Inhalation, Every 6 hours, # 360 mL, 11 Refills, Maintenance, 09/06/23 8:33:00 EST, Solution, [facility] #[id number], 153, cm, 08/19/23 2:04:00 EDT, Height, 171.8, [...] 0, Tot. Refills 0, Maintenance, dx: CHF, REEBL, obesity, decrease strength and mobility, 09/07/22 10:45:00 [...] 01/07/25 17:08:00 EDT, Route to Pharmacy Electronically, [facility] #[id number], 149.86, cm, 02/09/23 15:52:00 EDT, Height, 172.3, kg, 11/26/22 5:4... Start Date: 01/07/25 Stop Date: 12/23/27 Status: Ordered gabapentin 100 mg oral capsule 100 mg, 1, capsule, By Mouth, 3 times a day, # 90 capsule, Refills 0, Tot. Refills 0, Maintenance, 12/14/22 17:21:00 EST, Route to Pharmacy Electronically, [facility] #[id number], Partial fill upon patient request if the prescription is for a kelly... Start Date: 12/14/22 Status: Ordered metFORMIN 1000 mg oral tablet 1 tablet = 1,000 mg, By Mouth, 2 times a day, # 60 tablet, 11 Refills, Maintenance, 09/24/23 9:06:00 EST, Tablet, [facility] #[id number], cancel previous metformin scripts, 153, cm, 09/16/23 13:33:00 EST, Height, 176, kg, 09/16/23 13:33:00 EST, D... Start Date: 09/24/23 Status: Ordered multivitamin Multiple Vitamins oral capsule 1 capsule, By Mouth, Daily, # 30 capsule, 0 Refills, Maintenance, 09/06/23 8:33:00 EST, Capsule, [facility] #[id number], Partial fill upon patient request if the [...] 2 Refills, Maintenance, 09/24/23 9:06:00 EST, Capsule, [facility] #[id number], Partial fill upon patient request if the [...] Confirmed Active DMII Confirmed Active 1DrRyder Wade [phone], Norma. Dx 06/07/09 Social History Social History Type Response Smoking Status Former smoker, quit more than 30 days ago entered on: 06/11/19 Sex Patient Care team information Care Team Personnel Name: Becca Crain RN Position: [facility] RN Member Role: Primary Care Nurse Name: Jayna Sandhu RN Position: S RN Member Role: Primary Care Nurse Name: Maty Valencia RN Position: [facility] RN Member Role: Primary Care Nurse Name: Roger Peña RN Position: [facility] RN Supv Member Role: Primary Care Nurse Name: Mihir Jackson RN Position: [facility] RN Member Role: Primary Care Nurse Name: Danya Roman RN Position: [facility] SN RN Member Role: Primary Care Nurse Name: Ashley Brownlee RN Position: [facility] ED RN W/OE and Tasks Member Role: Primary Care Nurse Name: Amanda Huerta RN Position: [facility] RN Member Role: Primary Care Nurse Name: Yessica Stock Position: [facility] RN Member Role: Primary Care Nurse Name: Hazel Valadez DO Position: [facility] Resident Member Role: PCP Address: Address: [address] [place] [address]- Name: Juli Calles RN Position: [facility] RN Member Role: Primary Care Nurse Care Team Related Persons Name: ZULEIMA MCKEON Address: [place] [address] Name: ZAYRA STREETER Address: home [address] [address] Name: LUCITA TEMPLE Address: home Name: LARA TEMPLE Address: home [address] [address] Name: JUSTIN HINES
--- OUTSIDE RECORDS SUMMARY | 2024-04-04 10:10 | XMS_ITS | Continuity of Care Document ---
Author Organization [facility] Address [address] [place] [address]- Care Team Providers Care Cane Flume Feeding Machine Operator Name Role Phone Allyson ARMSTRONG Hazel Primary Care Physician [phone] [facility] 07[facility]23 - 08/23/23 [facility] [address] [place] [id number] Allergies, Adverse Reactions, Alerts Substance Reaction [...] Jaciel rded influenza virus vaccine, inactivated 09/03/07 Jaceil rded SARS-CoV-2 (COVID-19) mRNA BNT-162b2 vac 10/07/21 Recorded SARS-CoV-2 (COVID-19) mRNA BNT-162b2 vac 07/01/21 Given pneumococcal 23-valent vaccine 6 06/30/11 Given tetanus/diphtheria/pertussis, acel(Tdap) 10/06/10 Recorded diphtheria-tetanus toxoids (DT) 7 06/15/09 Given tetanus-diphtheria toxoids (Td) 12/23/08 Recorded 1Early/Late Reason: Med Not Available 2Result Comment: [10/30/2014] [id number] 3Admin Note: VIS GIVEN DATED: 04/29/12 4Admin Note: vis given 05/23/11 5Admin Note: VIS GIVEN-DATED 06/07/10 6Admin Note: vis give dated 08/03/09 7Admin Note: VIS GIVEN VIS DATE 05/08/06 Medications albuterol 0.083% inhalation solution 3 mL = 2.5 mg, Inhalation, Every 6 hours, # 360 mL, 11 Refills, Maintenance, 07/17/22 11:50:00 EDT,Solution, [facility] #[id number], 152, cm, 07/12/22 13:07:00 EDT, Height, 175.5, [...] 03/31/23 21:58:00 EDT, Route to Pharmacy Electronically, [facility] #[id number], Partial fill upon patient request if the [...] 01/07/25 17:08:00 EDT, Route to Pharmacy Electronically, [facility] #[id number], 149.86, cm, 02/09/23 15:52:00 EDT, Height, 172.3, kg, 11/26/22 5:4... Start Date: 01/07/25 Stop Date: 12/23/27 Status: Ordered furosemide 40 mg oral tablet 40 mg, 1, tablet, By Mouth, 2 times a day, for 90 days, # 180 tablet, Refills 11, Tot. Refills 11, Hard Stop 01/07/25 17:08:00 EDT, 01/23/22 17:08:00 EDT, Route to Pharmacy Electronically, [facility] #[id number], 152, cm, 06/17/21 8:41:00 EDT, He... Start Date: 01/23/22 Stop Date: 01/07/25 Status: Ordered gabapentin 100 mg oral capsule 100 mg, 1, capsule, By Mouth, 3 times a day, # 90 capsule, Refills 0, Tot. Refills 0, Maintenance, 12/14/22 17:21:00 EST, Route to Pharmacy Electronically, [facility] #[id number], Partial fill upon patient request if the prescription is for a kelly... Start Date: 12/14/22 Status: Ordered ibuprofen 800 mg oral tablet 800 mg, 1, tablet, By Mouth, 3 times a day, for pain with food or milk, # 30 tablet, Refills 0, Tot. Refills 0, Maintenance, 02/09/23 17:06:00 EDT, Route to Pharmacy Electronically, [facility] #[id number], Partial fill upon patient request if th... Start Date: 02/09/23 Status: Ordered metFORMIN 1000 mg oral tablet 1 tablet = 1,000 mg, By Mouth, 2 times a day, # 60 tablet, 11 Refills, Maintenance, 07/12/22 13:42:00 EDT, Tablet, [facility] #[id number], cancel previous metformin scripts, 152, cm, 07/12/22 13:07:00 EDT, Height, 175.5, kg, 08/09/20 0:18:00 EDT,... Start Date: 07/12/22 Status: Ordered multivitamin Multiple Vitamins oral capsule 1 capsule, By Mouth, Daily, # 30 capsule, 0 Refills, Maintenance, 03/23/23 7:59:00 EDT, Capsule, [facility] #[id number], Partial fill upon patient request if the [...] 11 Refills, Maintenance, 04/21/22 12:34:00 EDT, Powder, [facility] #[id number], Partial fill upon patient request if the prescription is for a schedule II opioid drug., 1 puffs... Start Date: 04/21/22 Stop Date: 04/16/23 Status: Ordered Vitamin D3 2000 intl units oral capsule 1 capsule = 2,000 International_Units, By Mouth, Daily, # 60 capsule, 2 Refills, Maintenance, 07/17/22 16:56:00 EDT, Capsule, [facility] #[id number], Partial fill upon patient request if the [...] Confirmed Active DMII Confirmed Active 1DrRyder Wade [phone], Norma. Dx 06/07/09 Social History Social History Type Response Smoking Status Former smoker, quit more than 30 days ago entered on: 06/11/19 Sex Patient Care team information Care Team Personnel Name: Becca Crain RN Position: [facility] RN Member Role: Primary Care Nurse Name: Jayna Sandhu RN Position: S RN Member Role: Primary Care Nurse Name: Maty Valencia RN Position: [facility] RN Member Role: Primary Care Nurse Name: Roger Peña RN Position: [facility] RN Supv Member Role: Primary Care Nurse Name: Mihir Jackson RN Position: S RN Member Role: Primary Care Nurse Name: Danya Roman RN Position: [facility] RN Member Role: Primary Care Nurse Name: Ashley Brownlee RN Position: [facility] ED RN W/OE and Tasks Member Role: Primary Care Nurse Name: Elma Caruso (INSTR) Position: [facility] RN Member Role: Primary Care Nurse Name: Amanda Huerta RN Position: S RN Member Role: Primary Care Nurse Name: Yessica Stock Position: [facility] RN Member Role: Primary Care Nurse Name: Hazel Valadez DO Position: [facility] Resident Member Role: PCP Address: Address: [address] [place] [address] [place], [place] [address] Name: Juli Calles RN Position: [facility] RN Member Role: Primary Care Nurse Care Team Related Persons Name: ZULEIMA MCKEON Address: [place] [address] Name: LUCITA TEMPLE Address: home Name: LARA TEMPLE Name: JUSTIN HINES
--- OUTSIDE RECORDS SUMMARY | 2024-04-04 10:10 | XMS_ITS | Continuity of Care Document ---
Author Organization [facility] Address [address] [place] [address]- Care Team Providers Care Still Pump Operator Name Role Phone Joey Steele MD Primary Care Physician [phone] [facility] - 12[facility]02/20 [facility] [address] [place], [place] [address] Attending Physician: Vannesa Paulino Admitting Physician: Vannesa Paulino Referring Physician: AdmtrVannesa Allergies, Adverse Reactions, Alerts Substance Reaction Severity [...] Reason: Med Not Available 2Result Comment: [10/30/2014] [id number] 3Admin Note: VIS GIVEN DATED: 04/29/12 4Admin Note: vis given 05/23/11 5Admin Note: VIS GIVEN-DATED 06/07/10 6Admin Note: vis give dated 08/03/09 7Admin Note: VIS GIVEN VIS DATE 05/08/06 Medications albuterol 0.083% inhalation solution 3 mL = 2.5 mg, Inhalation, Every 6 hours, # 360 mL, 11 Refills, Maintenance, 08/29/20 20:48:00 EST,Solution, [facility], 152, cm, 08/13/20 13:28:00 EDT, Height, 175.5, kg, 08/09/20 0:18:00 EDT, Dry Weight Start Date: 08/29/20 Stop Date: 08/24/21 Status: Ordered albuterol CFC free 90 mcg/inh inhalation aerosol 2, puffs, Inhalation, 4 times a day, PRN, FOR WHEEZING AND SHORTNESS OF BREATH, # 1 each, Refills 11, Tot. Refills 11, Maintenance, 08/29/20 20:48:00 EST, Route to Pharmacy Electronically, [id number], [facility]... Start Date: 08/29/20 Stop Date: 08/24/21 [...] Refills, Maintenance, 10/14/20 15:08:00 EST, EC Capsule, [facility] #[id number], Partial fill upon patient request if the prescription is fora schedule II opioid drug., 152, cm, 08/13/20 13:28... Start Date: 10/14/20 Status: Ordered furosemide 40 mg oral tablet 40 mg, 1, tablet, By Mouth, 2 times a day, # 60 tablet, Refills 10, Tot. Refills 10, Maintenance, 10/14/20 15:09:00 EST, Route to Pharmacy Electronically, [facility] #[id number], 152, cm, 08/13/20 13:28:00 EDT, Height, 175.5, kg, 08/09/20 0:18:00... Start Date: 10/14/20 Stop Date: 09/09/21 Status: Ordered metFORMIN 1000 mg oral tablet 1 tablet = 1,000 mg, By Mouth, 2 times a day, takes once daily for 2 weeks, then increase to BID, #60 tablet, 11 Refills, Maintenance, 10/14/20 15:09:00 EST, Tablet, [facility] #[id number], 152, cm, 08/13/20 13:28:00 EDT, Height, 175.5, kg, 07/29... Start Date: 10/14/20 Status: Ordered Oxygen Supplies See Instructions, # [...] 10 Refills, Maintenance, 10/14/20 15:09:00 EST, Tablet, [facility] #[id number], 152, cm, 08/13/20 13:28:00 EDT, Height, 175.5, kg, 08/09/20 0:18:00 EDT, Dry Weight Start Date: 10/14/20 Status: Ordered Vitamin D3 2000 intl units oral capsule 1 capsule = 2,000 International_Units, By Mouth, Daily, # 60 capsule, 2 Refills, Maintenance, 11/02/20 10:14:00 EST, Capsule, [facility] #[id number], Partial fill upon patient request if the [...] home CPAP(Confirmed) Active DMII(Confirmed) Active 1DrRyder Wade [phone], Norma. Dx 06/07/09 Social History Social History Type Response Smoking Status Former smoker, quit more than 30 days ago entered on: 06/11/19 Sex
--- OUTSIDE RECORDS SUMMARY | 2024-04-04 10:10 | XMS_ITS | Continuity of Care Document ---
Author Organization [facility] ([facility] Adult Medicine Address [address] [place] [address]- Care Team Providers Care Purchasing Internship Name Role Phone Joey Steele MD Primary Care Physician Encounter [facility] Date(s): 01/23/22 - 02/22/22 [facility] [address], [place] [address] Allergies, Adverse Reactions, Alerts Substance [...] Reason: Med Not Available 3Result Comment: [10/30/2014] [id number] Note: VIS GIVEN DATED: 04/29/12 5Admin Note: vis given 05/23/11 6Admin Note: VIS GIVEN-DATED 06/07/10 7Admin Note: vis give dated 08/03/09 8Admin Note: VIS GIVEN VIS DATE 05/08/06 Medications albuterol 0.083% inhalation solution 3 mL = 2.5 mg, Inhalation, Every 6 hours, # 360 mL, 11 Refills, Maintenance, 08/29/20 20:48:00 EST,Solution, [facility], 152, cm, 08/13/20 13:28:00 EDT, Height, 175.5, kg, 08/09/20 0:18:00 EDT, Dry Weight Start Date: 08/29/20 Stop Date: 08/24/21 Status: Ordered albuterol CFC free 90 mcg/inh inhalation aerosol 2, puffs, Inhalation, 4 times a day, PRN, FOR WHEEZING AND SHORTNESS OF BREATH, # 1 each, Refills 5, Tot. Refills 5, Maintenance, 08/24/21 20:48:00 EDT, Route to Pharmacy Electronically, [id number], [facility] #[id number]... Start Date: 08/24/21 Stop Date: 02/20/22 Status: Ordered duloxetine 60 mg oral enteric coated capsule 1 capsule = 60 mg, By Mouth, Daily, # 30 capsule, 10 Refills, Maintenance, 10/14/20 15:08:00 EST, EC Capsule, [facility] #[id number], Partial fill upon patient request if the prescription is fora schedule II opioid drug., 152, cm, 08/13/20 13:28... Start Date: 10/14/20 Status: Ordered furosemide 40 mg oral tablet 40 mg, 1, tablet, By Mouth, 2 times a day, # 180 tablet, Refills 11, Tot. Refills 11, Maintenance, 01/23/22 17:08:00 EDT, Route to Pharmacy Electronically, [facility] #[id number], 152, cm, 06/17/21 8:41:00 EDT, Height, 175.5, kg, 08/09/20 0:18:00... Start Date: 01/23/22 Stop Date: 01/07/25 Status: Ordered hydrOXYzine hydrochloride 25 mg oral tablet 1 tablet = 25 mg, By Mouth, 4 times a day, PRN for anxiety, # 40 tablet, 1 Refills, Maintenance, 08/28/21 15:25:00 EDT, [facility] #[id number], Partial fill upon patient request if the prescription is for a schedule II opioid drug., 152,... Start Date: 08/28/21 Stop Date: 10/27/21 Status: Ordered meloxicam 15 mg oral tablet 1 tablet = 15 mg, By Mouth, Daily, For knee and back pain, # 30 tablet, 2 Refills, Maintenance, 06/17/21 9:06:00 EDT, [facility] #[id number], Partial fill upon patient request if the prescription is for a schedule II opioid drug., 152, cm... Start Date: 06/17/21 Status: Ordered metFORMIN 1000 mg oral tablet 1 tablet = 1,000 mg, By Mouth, 2 times a day, # 60 tablet, 11 Refills, Maintenance, 06/17/21 9:12:00 EDT, [facility] #[id number], cancel previous metformin scripts, 152, cm, 06/17/21 [...] tablet, 10 Refills, Maintenance, 10/14/20 15:09:00 EST, [facility] #[id number], 152, cm, 08/13/20 13:28:00 EDT, Height, 175.5, [...] 2 Refills, Maintenance, 11/02/20 10:14:00 EST, Capsule, [facility] #[id number], Partial fill upon patient request if the [...] Active Osteoarthritis(Confirmed) Active DMII(Confirmed) Active [facility] Wade [phone], Norma. Dx 06/07/09 Social History Social History Type Response Smoking Status Former smoker, quit more than 30 days ago entered on: 06/11/19 Sex
--- OUTSIDE RECORDS SUMMARY | 2024-04-04 10:10 | XMS_ITS | Continuity of Care Document ---
Author Organization [facility] ter Address [address] [place] [id number] Care Team Providers Care Rail Assembler Name Role Phone Hazel Valadez DO Primary Care Physician Encounter [facility] Date(s): 09/15/23 - 09/17/[address] [address]- Encounter Diagnosis Hypercarbia(Final) - 09/16/23 Urinary tract infection(Final) - 09/16/23 Urinary tract infection(Final) - 09/16/23 Discharge Disposition: A-Transfer SNF Attending Physician: Yeimy Oglesby MD Admitting Physician: Priya Ruggiero MD Referring Physician: Not on Staff, Referring MD [...] Reason: Med Not Available 2Result Comment: [10/30/2014] [id number] Note: VIS GIVEN DATED: 04/29/12 4Admin Note: vis given 05/23/11 5Admin Note: VIS GIVEN-DATED 06/07/10 6Admin Note: vis give dated 08/03/09 7Admin Note: VIS GIVEN VIS DATE 05/08/06 Medications Advair Diskus 250 mcg-50 mcg inhalation powder 1, puffs, Inhalation, 2 times a day, # 28 each, Refills 0, Tot. Refills 0, Maintenance, 09/06/23 14:10:00 EST, Powder, Route to Pharmacy Electronically, [id number], [facility] #[id number], 153, cm, 08/19/23 2:04:00 EDT,... Start Date: 09/06/23 Status: Ordered albuterol 0.083% inhalation solution 3 mL = 2.5 mg, Inhalation, Every 6 hours, # 360 mL, 11 Refills, Maintenance, 09/06/23 8:33:00 EST, Solution, [facility] #[id number], 153, cm, 08/19/23 2:04:00 EDT, Height, 171.8, [...] 03/31/23 21:58:00 EDT, Route to Pharmacy Electronically, [facility] #[id number], Partial fill upon patient request if the [...] 01/07/25 17:08:00 EDT, Route to Pharmacy Electronically, [facility] #[id number], 149.86, cm, 02/09/23 15:52:00 EDT, Height, 172.3, kg, 11/26/22 5:4... Start Date: 01/07/25 Stop Date: 12/23/27 Status: Ordered gabapentin 100 mg oral capsule 100 mg, 1, capsule, By Mouth, 3 times a day, # 90 capsule, Refills 0, Tot. Refills 0, Maintenance, 12/14/22 17:21:00 EST, Route to Pharmacy Electronically, [facility] #[id number], Partial fill upon patient request if the prescription is for a kelly... Start Date: 12/14/22 Status: Ordered ibuprofen 800 mg oral tablet 800 mg, 1, tablet, By Mouth, 3 times a day, for pain with food or milk, # 30 tablet, Refills 0, Tot. Refills 0, Maintenance, 02/09/23 17:06:00 EDT, Route to Pharmacy Electronically, [facility] #[id number], Partial fill upon patient request if th... Start Date: 02/09/23 Status: Ordered metFORMIN 1000 mg oral tablet 1 tablet = 1,000 mg, By Mouth, 2 times a day, # 60 tablet, 11 Refills, Maintenance, 07/12/22 13:42:00 EDT, Tablet, [facility] #[id number], cancel previous metformin scripts, 152, cm, 07/12/22 13:07:00 EDT, Height, 175.5, kg, 08/09/20 0:18:00 EDT,... Start Date: 07/12/22 Status: Ordered multivitamin Multiple Vitamins oral capsule 1 capsule, By Mouth, Daily, # 30 capsule, 0 Refills, Maintenance, 09/06/23 8:33:00 EST, Capsule, [facility] #[id number], Partial fill upon patient request if the [...] 2 Refills, Maintenance, 07/17/22 16:56:00 EDT, Capsule, [facility] #[id number], Partial fill upon patient request if the [...] Confirmed Active DMII Confirmed Active 1DrRyder Wade [phone], Norma. Dx 06/07/09 Results Orders for Microbiology Reports Name Date Urine Culture (URINE CULTURE) 09/15/23 Microbiology Reports TEST:Urine Culture STATUS:Auth (Verified) BODY SITE: SOURCE:URINE COLLECTED DATE/TIME:09/15/23 7:25 PM Urine Culture SPECIMEN DESCRIPTION : URINE SPECIAL REQUESTS : NONE CULTURE : <10,000 COL/ML REPORT STATUS : FINAL 09/17/2023 Radiology Reports * Exam Date Time Procedure Performing Provider Status 09/16/23 3:[address] Abdomen and Pelvi s W/O Contrast Judi Borges; Auth (Verified) Notes: (CT Abdomen and Pelvis W/O Contrast) Reason For Exam: Flank pain, kidney stone suspected;Other: RESULT: CT Abdomen and Pelvis W/O Contrast CT Abdomen and Pelvis W/O Contrast INDICATION: pt states sob x 3 days with abd pain no fever or chills pt has hx of CHF; Reason: Other:; Flank pain, kidney stone suspected; Clinical Question(s): Calculus; Right Side flank; Order Comment: TECHNIQUE: Spiral CT through the abdomen and pelvis without IV contrast formatted in 3 planes. Thisstudy was performed oral contrast. Weight-based protocol using automatic tube modulation was used to optimize exposure parameters. CTDIvol Body: 42.18 mGy, DLP Body: 1932 mGy*cm. COMPARISON: 08/18/2023 FINDINGS: Dude Wrangler View Findings, Lines and Tubes: None. Visualized Chest: Lung bases are clear. No pleural effusion. Diaphragm: Normal. Portion of the upper abdomen is not included on this exam including the superior most aspect of theliver and spleen. There is limited evaluation of solid abdominal organs without intravenous contrast. Liver: Limited evaluation without IV contrast without acute abnormality. Hepatic steatosis. Gallbladder: No CT evidence of gallbladder pathology. Bile ducts: No biliary ductal dilation. Spleen: Normal. Accessory splenic tissue is incidentally noted. Pancreas: Normal. Adrenal glands: Normal. Kidneys and ureters: No hydronephrosis, stones, or noncontrast evidence of suspicious masses. Bladder: Normal. Reproductive organs: Unremarkable. Stomach, small bowel, and large bowel: Normal. Appendix: Normal. Peritoneum and retroperitoneum: No ascites or pneumoperitoneum. No omental or mesenteric lesions. Lymph nodes: No enlarged lymph nodes. Prominent and upper borderline enlarged inguinal lymph nodes which could be from prior reactive etiology. Incidental note is seen of a varix at the left lower extremity. Blood vessels: Normal. No aneurysm. Abdominal and pelvic wall: Indistinct lower back soft tissue edema. There is also mild edema at the lower abdominal wall. This can be positional. Bones: No acute abnormality. Mild degenerative changes. IMPRESSION: No evidence of renal calculus. No acute intra-abdominal pathology. The impression above was relayed to Jerry Diaz DO by Dr. Ophelia Matthew via [facility] with acknowledgement received on 09/16/2023 at 3:32 AM. I have personally reviewed the images and I agree with this report. WSN: [id number] Ordering Physician: Jerry Diaz Dictated By: Ophelia Matthew MD Dictated Date/Time: 09/16/23 7:26 am Reviewed By: Darya Quigley MD Signed By: Darya Quigley MD Signed Date/Time: 09/16/23 7:31 am Transcribed By: JAOCB Transcribed Date/Time: 09/16/23 3:32 am * Exam Date Time Procedure Performing Provider Status 09/16/23 2:[address] Head/Brain W/O Contrast Chayito Pena; Auth (Verified) Notes: (CT Head/Brain W/O Contrast) Reason For Exam: Brain mass or lesion;Other: RESULT: CT Head/Brain W/O Contrast CT Head/Brain W/O Contrast INDICATION: pt states sob x 3 days with abd pain no fever or chills pt has hx of CHF; TECHNIQUE: Noncontrast head CT using axial technique and reconstructed in axial and coronal planes.Iterative reconstruction techniques are used to optimize dose and image quality. CTDIvol Head: 45.50 mGy, DLP Head: 772 mGy*cm. COMPARISON: None. FINDINGS: Dude Wrangler view findings, lines and tubes: None. BRAIN AND EXTRA-AXIAL SPACES: No parenchymal hemorrhage, midline shift, or mass effect. Maldonado-white matter differentiation is wellpreserved. No acute infarct. Negative insular ribbon and hyperdense vessel signs. Ventricles, sulci, and basilar cisterns are normal. No white matter lesions. No subarachnoid hemorrhage. No subdural or epidural collection. CALVARIUM, SKULL BASE, AND SOFT TISSUES: No fractures or suspicious bony lesions. The paranasal sinuses and mastoid air cells are clear. Visualized orbits and globes are intact. The extracranial soft tissues are unremarkable. IMPRESSION: No acute intracranial pathology. I have personally reviewed the images and I agree with this report. WSN: [id number] Ordering Physician: Josie Ramos Dictated By: Ophelia Matthew MD Dictated Date/Time: 09/16/23 5:28 am Reviewed By: Darya Quigley MD Signed By: Darya Quigley MD Signed Date/Time: 09/16/23 5:33 am Transcribed By: JACOB Transcribed Date/Time: 09/16/23 3:20 am * Exam Date Time Procedure Performing Provider Status 09/15/23 10:01 PM Chest 2 Views Frontal and Lat Alona Walter; Auth (Verified) Notes: (Chest 2 Views Frontal and Lat) Reason For Exam: Shortness of Breath RESULT: Chest 2 Views Frontal and Lat PA and lateral chest dated September 15, 2023. Comparison films are from 2022 and November 27, 2022. HISTORY: Shortness of breath. FINDINGS: The cardiac silhouette is within normal limits for size. Some mild central pulmonary vascular prominence is noted. Some linear density in the left midlung is likely atelectasis. No airspaceconsolidation or pleural effusion is identified. Degenerative changes are noted in the spine and shoulders. IMPRESSION: Mild vascular congestion/volume overload. Examination 11762. Thank you for allowing me to participate in the care of this patient. WSN: [id number] Ordering Physician: Maritza Howard Dictated By: Rudy Vizcarra MD Dictated Date/Time: 09/15/23 10:04 p Reviewed By: Rudy Vizcarra MD Signed By: Rudy Vizcarra MD Signed Date/Time: 09/15/23 10:04 pm Transcribed By: JACOB Transcribed Date/Time: 09/15/23 10:03 pm Vital Signs Most recent to oldest [Reference Range]: 1 2 3 Height 153 cm (09/16/23 1:33 PM) 153 cm (09/16/23 11:17 AM) 153 cm (09/15/23 6:03 PM) Weight 176 kg (09/16/23 1:33 PM) 176 kg (09/16/23 11:17 AM) 176 kg (09/15/23 6:03 PM) Oxygen Saturation [94-100 %] 94 % (09/17/23 6:22 AM) 95 % (09/17/23 2:54 AM) 94 % (09/16/23 8:23 PM) Pulse Rate [55-90 bpm] 98 bpm *H* (09/17/23 6:22 AM) 78 bpm (09/17/23 2:54 AM) 82 bpm (09/16/23 8:23 PM) Body Mass Index [18.5-24.99 kg/m2] 75.18 kg/m2 *>HHI* (09/16/23 1:33 PM) 75.18 kg/m2 *>HHI* (09/16/23 11:17 AM) 75.18 kg/m2 *>HHI* (09/15/23 3:06 PM) Blood Pressure [90-138/55-84 mm Hg] 120/79mm Hg (09/17/23 6:22 AM) 112/68mm Hg (09/17/23 2:54 AM) 120/67mm Hg (09/16/23 8:23 PM) Respiratory Rate [16-30 br/min] 20 br/min (09/17/23 6:22 AM) 16 br/min (09/17/23 2:54 AM) 20 br/min (09/16/23 8:23 PM) Temperature [96.8-100.4 DegF] 98.4 DegF (09/17/23 6:22 AM) 98.4 DegF (09/17/23 2:54 AM) 98.7 DegF (09/16/23 8:34 PM) Liters per Minute 2 L/min (09/17/23 6:22 AM) 2 L/min (09/17/23 2:54 AM) 2 L/min (09/16/23 8:23 PM) Mode of Delivery (Oxygen) Nasal cannula (09/17/23 6:22 AM) Nasal cannula (09/17/23 2:54 AM) Nasal cannula (09/16/23 8:23 PM) Blood pressure sites Arm, left (09/17/23 6:22 AM) Arm, left (09/17/23 2:54 AM) Arm, left (09/16/23 8:23 PM) Temperature Route Oral (09/17/23 6:22 AM) Oral (09/17/23 2:54 AM) Oral (09/16/23 8:34 PM) Dry Weight 176 kg (09/16/23 1:33 PM) 176 kg (09/16/23 11:17 AM) 176 kg (09/15/23 6:03 PM) Weight Obtained Via Patient/family stated (09/16/23 11:17 AM) Patient/family stated (09/15/23 3:06 PM) Dry Weight Obtained Via Patient/family stated (09/16/23 11:17 AM) Patient/family stated (09/15/23 3:06 PM) Social History Social History Type Response Smoking Status Former smoker, quit more than 30 days ago entered on: 06/11/19 Sex Admission evaluation note * Rose Marie MILLER, Joan: PERFORM, MODIFY, MODIFY Event Display: Admission Note Authored Date: [id number] Patient: ??ZULEIMA TEMPLE ? Age:??48 Years?Sex:??Female?:??1975?? Chief Complaint/Reason for Consultation from home, abdominal pain and shortnesso f breath and vaginal pain, has endometrosis ??symptoms forthree days. worsening today. hx of chf. History of Present Illness Pt is a??48 Years??old ??woman??with past medical history of??DM2,??HFpEF,??REBEL??not on CPAP,??COPD, presenting with lethargy for 3 days and longstanding abdominal pain. ?? Patient states that she was brought??to the??hospital via ambulance after her daughter noticed ede was??lethargic.?? Patient states that this is something that is been going on for 3 days, notably that??patient would often fall asleep, sitting up, staring at the TV,??trying to read books.?? She further states that she has had a headache when she goes to sleep, and never gets restful sleep.?? She??believes this to be to her??sleep apnea,??but this is not a concern of hers at this point. ??Patient states that she has not been taking her CPAP as she is lost a part of the machine and does not want to replace it because of the cost. ?? Her main concern is??abdominal pain that has been longstanding for at least??7 to 8 months.?? She further further states that at this time, she has noticed that she has not had??a menstrual period.??She expresses concern, multiple times during this interview,??that she is .?? She states that she cannot handle another child.?? She states that she feels a baby is moving around in her stomach,??further stating that it feels that her stomach is joshua??and expanding.?? She states that??this pain usually starts on??the??lower part of her stomach and radiates into her left side,??but it is this left side that hurts the most.?? She states that for work-up of the lost menstrual period. ??She has had 2 ultrasounds,??both of which have not revealed that she is .?? She further admits that her test??in the past has been negative.?? She??states that the second ultrasound in August revealed??that she had endometriosis,??and is scheduled for a biopsy on 10/18/2023.?? She continues to emphasize that she has not had a menstrual period for 7 months??during this??interview.?? She further mentions that??she has not done anything for the stomach pain, namely that she cannot bend or exercise??less the stomach pain worsen. She notes that while trying to pee??for the urine culture while in the ED,??she noticed 3??drops of blood in her urine.?? She states that the nurse told her that this was due to her menstrual period, but she stated to the nurse that she does nothave 1.?? She denies any hot flashes,??symptoms of feeling cold??or hot??randomly,??but admits to unilateral??left sided yellow discharge from her breast. ??She states that this has been happening for a few months and it usually comes when is??pressed out from the nipple.?? She denies breast-feeding. ?? She further states that she has leg edema but this she attributes to her heart failure. ?? Otherwise, no complaints of fevers, fatigues, chills, nausea, vomiting, diarrhea, constipation. ?? Per ambulance report: Shortness of breath, weakness for past 3 days, getting worse.?? CHF on O2,2 LNC.?? Patient at this time reported feeling sleepy than usual.?? Patient states that last LMP was 7 months ago. ED course: Patient presented afebrile, slightly hypertensive to 136/74, on 2 LNC.?? Preliminary labs revealed unremarkable WBC/Hb/MCV/sodium/potassium.?? Bicarb elevated to 35, glucose elevated 158.?? BUN/creatinine at baseline of 14 and 0.9 respectively.?? Urinalysis remarkable for 2+ albumin, 3+ hemoglobin, large number of red blood cells, 9 white blood cells, moderate bacteria with squamous epithelial.?? EKG/CT head/CT abdomen???pelvis unremarkable. Blood negative. Patient given ceftriaxone here in the emergency department. Vitals since admission: Heart rate = 75???94, normotensive, afebrile, 2 L nasal cannula. Review of Systems Constitutional:??No weight loss, fever, chills, weakness or fatigue. Allergy/Immune: Denies any??Eczema or hives Eyes:??No visual loss, blurred vision, double vision or yellow sclera ENT:??No hearing loss, sneezing, congestion, runny nose or sore throat. Cardiovascular:??Pedal edema. No chest pain, chest pressure or chest discomfort. No palpitations Gastrointestinal:??No anorexia, No abdominal pain or blood in stool. Genitourinary: Blood in most recent urine sample, per pt.??No burning micturition. No urinary frequency or incontinence. Neurologic:??Some Syncope No headache, dizziness, syncope, unilateral weakness, ataxia, numbness ortingling in the extremities. No change in bowel or bladder control. Musculoskeletal:?? Body always hurts No muscle pain, back pain, joint pain or stiffness. Hematologic/Lymphatics:??No bleeding or bruising. No painful lymph nodes. Skin:??No rash or itching. Endocrine:??No reports of sweating. No cold or heat intolerance. No polyuria or polydipsia. Psychiatric:??No depression or anxiety. Objective Measurements?? Height: 153 cm (09/16/23) Weight: 176 kg (09/16/23) Dry Weight: 176 kg (09/16/23) Body Mass Index:??75.18 kg/m2??Critical (09/16/23) ? Vital Signs?? Temperature: 97.9 DegF (09/16/23 11:29:00) Temperature Route: Oral (09/16/23 11:29:00) Pulse Rate:??109 bpm??High (09/16/23 11:29:00) Respiratory Rate: 20 br/min (09/16/23 11:29:00) Systolic Blood Pressure: 127 mm Hg (09/16/23 11:29:00) Diastolic Blood Pressure: 82 mm Hg (09/16/23 11:29:00) Blood pressure sites: Arm, left (09/16/23 11:29:00) Mean Arterial Pressure: 97 mm Hg (09/16/23 11:29:00) Pulse Pressure: 45 mm Hg (09/16/23 11:29:00) Oxygen Saturation: 100 % (09/16/23 11:29:00) Liters per Minute: 2 L/min (09/16/23 11:09:00) Mode of Delivery (Oxygen): Room air (09/16/23 11:29:00) Early Warning Score: 3 (09/16/23 11:29:40) ? Pain Scores 1 - 10 Pain Scale Score: 10 (11:17) ? Intake/Output? No Data Available ? Physical Exam Constitutional: Alert, in no distress. Obese Habitus Mental Status: Lethargic, alert, oriented to person, place, time, and situation Head: Normocephalic. Eyes: Pupils are equal, round and reactive to light. Extraocular muscles intact. Ear, Nose and Throat: Nasal Cannula in place. Trachea midline. Respiratory:??Unable to assess posterior lung sounds due to pt habitus.??Lungs bilateral clear to auscultation. No wheezing, rales or rhonchi. Cardiovascular: S1 S2 present regular rate rhythm. No murmurs, rubs or gallops. Gastrointestinal: Normal bowel sounds. Abdomen??Tender??to??light palpation in L??upper and lower quadrants. ??Tender to deep palpation in right upper and lower quadrants.?No pulsatile mass. No hepatosplenomegaly. Genitourinary: Costovertebral angle tenderness. Neurologic: No focal neurological deficits. Moves all extremities spontaneously. Sensation intact bilaterally. Skin: No rashes or lesions. No petechiae or purpura.?? Musculoskeletal:??3/5 strength in all extremities.??Restricted range of motion. Lymphatics: Trace Bilateral??pedal edema. Psychiatric:??confused mood and congruent affect. No AVH, SI/HI Assessment/Plan Diagnoses Lethargy and Hypercarbia likely secondary to obesity hyperventilation??in the setting of obstructive sleep apnea ??? BMI, 09/16/2023: 75 ??? Bicarbonate, 09/16/2023: 36 ??? History notable for excessive daytime sleepiness in the setting of obesity??and obstructive sleep apnea ??? History further notable for patient not compliant on CPAP ?? Plan: ??? Resume nighttime CPAP. - Transition from Home meds to BreoEllipta and DuoNebs - Maintain 02 Sat greater than92% ?? Abdominal pain likely secondary to functional pain Hematuria on UA ? ??UTI ??? History notable for longstanding abdominal pain - Physical Exam notable for R Side CVA Tenderness. ???Labs??reassuring against fever, elevated white count. ? test, 09/16/2023: Negative ??? UTI on admission??revealing??Hematuria and??trace??white blood cells??white blood cells.?? Urine further notable for squamous epithelial cells indicating not a clean-catch. ?CT scan on admission??not revealing any acute??abdominal pathology ?Chart review of previous ultrasounds showed endometrial thickening??to 1.2 mm with??follow-up on 10/18/2023 ?? Plan: ?If abdominal pain worsens consider??COUNTER CLERK consult for evaluation of??pelvic pain. ?Continue ceftriaxone 1 g ?Repeat urinalysis with urine culture ?? Unilateral Breast Discharge ?History notable for unilateral, yellow,??left breast discharge ?Physical exam limited due to??patient being in hallway of the ED ?? Plan: ?Reevaluate??when patient has been moved to private room. ?? DM2 - SS Insulin 2-14 units, increasing q2 units q50 points to a goal of 70. - BG Checks q3 - Diabetic Diet ?? HFpEF Chest x-ray, 09/16/2023: Mild vascular congestion/volume overload Echocardiogram, 08/09/2020: Left ventricular ejection fraction 55 to 60%, normal systolic function poor visualization of right ventricle. Physical exam revealing trace pedal edema. ?? Plan: - Obtain Echo - Start Lasix 40 mg po daily starting 09/17/2023?? - Strict I's/O's - Continue to Monitor ?? Quality metrics: Diet: Diabetic DVT: Lovenox Code Status: Full Dispo: Home pending workup of abdominal pain/lethargy. ?? Joan Trotter MD Internal Medicine-Pediatrics PGY-1 Pager #[phone] / [facility] ([facility]) Case seen and discussed with attending Dr. Oglesby ?? This note was created with the use of speech recognition software. Please excuse the magazine writer, as above, for any typographical errors. Please reach out for any clarifications. ?? Histories Allergies Allergies ?(Active and Proposed Allergies Only) sulfamethoxazole? (Severity: Unknown severity, Onset: Unknown) ?Reactions: itch ? Past Medical History/Problem List Active Problems??(13) Arthritis of knees Asthma Cholesteatoma of ear [...] Sexual Details:??Sexually involved in last 6 months: No. ??Gender identity: Identifies as female. ??Self described orientation: Straight or heterosexual. Details:??Sexually involved in last 6 months: Yes. ??Sexual orientation: Heterosexual. ??Gender identity: Male. ??Number of partners in last 6 months: 1. Substance Abuse Details:??Use: Never. Tobacco Details:??Use: Former smoker, quit more than 30 days ago. Details:??Former smoker, Tobacco user in household: No. ??Other: Quit 2013. ??Type: Cigarettes. ??Tobacco use times per day: 1. ??14 Number of years:. Electronic Cigarette/Vaping Details:??Electronic Cigarette Use: Never. ? Psychosocial History ? Family History Mother: Arthritis; COPD; Hepatitis; [...] and brakesDx: Morbid obesity Durable Medical Equipment (Shower Chair)?See Instructions?Dispense: Bariatric Shower ChairDx:Morbid Obesity, risk of falls Durable Medical Equipment (Freestyle Jorden Monitor)?See Instructions?for [...] bs daily dx E11.9 Durable Medical Equipment (Freestyle Lite Test Strips)?See Instructions?use to check bs dailydx E11.9 Durable Medical Equipment (Freestyle Lite Lancets)?See Instructions?use to check bs daily dx e11.9 Durable Medical Equipment (bariatric walker)?See Instructions?for difficulty with ambulation Durable Medical Equipment (Oxygen Supplies)?See Instructions?2-3 L VIA NASAL CANNULA USE NIGHTLY WITH CPAPRESPIRATORY FAILURE HYPOXIA OSAG47.33 R09.02 Famotidine (famotidine 20 mg oral tablet)?20?Milligram?1?tablet?By Mouth?Daily?for 7?Days Fluticasone-Salmeterol (Advair Diskus 250 mcg-50 mcg inhalation powder)?1?puff(s)?Inhalation?2 times a day Furosemide (furosemide 40 mg oral tablet)?40?Milligram?1?tablet?By Mouth?2 times a day?for 90?Days Furosemide (furosemide 40 mg oral tablet)?40?Milligram?1?tablet?By Mouth?2 times a day?for 90?Days Gabapentin (gabapentin 100 mg oral capsule)?100?Milligram?1?capsule?By Mouth?3 times a day Ibuprofen (ibuprofen 800 mg oral tablet)?800?Milligram?1?tablet?By Mouth?3 times a day?for painwith food or milk Metformin (metFORMIN 1000 mg oral tablet)?1?tab(s)?1,000?Milligram?By Mouth?2 times a day Miscellaneous Rx (bedside commode)?See Instructions?dx: CHF, REBEL, obesity, decrease strength and mobility Miscellaneous Rx (rolling walker)?See Instructions?dx: CHF, REBEL, obesity, decrease strength and mobility Multivitamin (multivitamin Multiple Vitamins oral capsule)?1?capsule?By Mouth?Daily ? Inpatient Medications Medications (12) Active SCHEDULED: (3) Enoxaparin 40 mg Inj (Enoxaparin Inj) ??40 mg 0.4 mL, Subcutaneous Injection, 2 times a day influenza virus vaccine, inactivated (Influenza, Quadrivalent Vaccine (Fluzone Quad)) ??0.5 mL, Intramuscular, Once NaCl 0.9% Flush 3ml (NaCL 0.9% Flush) ??3 mL, IV Push, Every 8 hours CONTINUOUS: (0) PRN: (9) Acetaminophen 325 mg Tablet (Acetaminophen Tablet) ??650 mg, By Mouth, Every 4 hours Dextromethorphan-Guaifenesin 20 mg-200 mg/10 mL Liqu UD (Robitussin DM Liquid) ??10 mL, By Mouth, Every 4 hours Docusate Sodium 100 mg Capsule (Docusate Sodium Capsule) ??100 mg 1 capsule, By Mouth, 2 times a day Ibuprofen 400 mg Tablet (ibuprofen 400 mg oral tablet) ??400 mg, By Mouth, 3 times a day Melatonin 3 mg Tablet [...] mg, Chew, 3 times a day ? 72 Hour Antibiotic History Stopped Antibiotics Stop Date/Time Last Administered First Administered Ceftriaxone??1 Gm, 100 mL/hr, IVPB, Once 09/16/2023 05:13 09/16/2023 05:13 09/16/2023 05:13 ? Vaccinations and Immunoprophylaxis diphtheria-tetanus toxoids (DT): 0.5 mL (06/15/09 15:11:00) influenza virus vaccine, inactivated: 0.5 Unknown (10/20/21 07:00:00) influenza virus vaccine, inactivated: 0.5 mL (08/10/20 12:42:00) influenza virus vaccine, inactivated: 0.5 Unknown (10/11/16 07:00:00) influenza virus vaccine, inactivated: 0.5 mL (08/14/16 08:32:00) influenza virus vaccine, inactivated: 0.5 mL (11/25/15 14:53:00) influenza virus vaccine, inactivated: 0.5 mL (10/30/14 16:17:00) influenza virus vaccine, inactivated: 0.5 mL (06/20/12 15:05:00) influenza virus vaccine, inactivated: 0.5 Unknown (10/09/11 07:00:00) influenza virus vaccine, inactivated: 0.5 mL (09/14/11 14:48:00) influenza virus vaccine, inactivated: 0.5 mL (02/06/11 16:26:00) influenza virus vaccine, inactivated: 0 Unknown (10/06/10 07:00:00) influenza virus vaccine, inactivated: 0 Unknown (08/10/09 08:00:00) influenza virus vaccine, inactivated: 0.5 Unknown (09/03/07 07:00:00) pneumococcal 23-valent vaccine: 0.5 mL (06/30/11 10:36:00) SARS-CoV-2 (COVID-19) mRNA BNT-162b2 vac: 0.3 Unknown (10/07/21 07:00:00) SARS-CoV-2 (COVID-19) mRNA BNT-162b2 vac: 0.3 mL (07/01/21 09:02:00) tetanus/diphtheria/pertussis, acel(Tdap): 0.5 Unknown (10/06/10 07:00:00) tetanus-diphtheria toxoids (Td): 0.5 Unknown (12/23/08 07:00:00) ?? Results Recent Labs BLOOD COUNT & DIFF WBC 9.9 k/mm3 ()?? 09/15/2023 19:15 RBC 4.89 m/mm3 ()?? 09/15/2023 19:15 Hgb 14.9 Gm/dL ()?? 09/15/2023 19:15 Hct 46.1 % (High)?? 09/15/2023 19:15 MCV 94.3 femtoliters ()?? 09/15/2023 19:15 MCH 30.5 pg ()?? 09/15/2023 19:15 MCHC 32.3 g/dL (Low)?? 09/15/2023 19:15 Platelet Count 253 k/mm3 ()?? 09/15/2023 19:15 RDW-SD 42.9 femtoliters ()?? 09/15/2023 19:15 MPV 10.6 femtoliters ()?? 09/15/2023 19:15 Nucleated RBC (Automated) 0.0 #/100 WBC'S ()?? 09/15/2023 19:15 Abs. NRBC 0.0 k/mm3 ()?? 09/15/2023 19:15 Abs. Neut 6.3 k/mm3 ()?? 09/15/2023 19:15 Abs. Lymph 2.4 k/mm3 ()?? 09/15/2023 19:15 Abs. Yuba 0.9 k/mm3 ()?? 09/15/2023 19:15 Abs. Eo 0.2 k/mm3 ()?? 09/15/2023 19:15 Abs. Baso 0.1 k/mm3 ()?? 09/15/2023 19:15 Neut % 63.9 % ()?? 09/15/2023 19:15 Lymph % 23.9 % ()?? 09/15/2023 19:15 [place] % 9.2 % ()?? 09/15/2023 19:15 Eos % 2.1 % ()?? 09/15/2023 19:15 Baso % 0.5 % ()?? 09/15/2023 19:15 Imm Gran 0.4 % ()?? 09/15/2023 19:15 Abs. Imm Gran 0.0 k/mm3 ()?? 09/15/2023 19:15 ?? BLOOD GAS Specimen Type - Blood Gas VENOUS ()?? 09/15/2023 19:14 pH, Venous 7.28 (Low)?? 09/15/2023 19:14 pCO2, Venous 78 mm Hg (High)?? 09/15/2023 19:14 pO2, Venous 40 mm Hg ()?? 09/15/2023 19:14 Bicarbonate, Estimated(Venous) 36 mmol/L (High)?? 09/15/2023 19:14 ?? CARDIAC Nt-Probnp <36 pg/mL ()?? 09/15/2023 19:15 ?? CHEM GENERAL Sodium 138 mmol/L ()?? 09/15/2023 19:15 Potassium 4.3 mmol/L ()?? 09/15/2023 19:15 Chloride 97 mmol/L (Low)?? 09/15/2023 19:15 Bicarbonate Level 35 mmol/L (High)?? 09/15/2023 19:15 Anion Gap 6 ()?? 09/15/2023 19:15 Glucose Level 158 mg/dL (High)?? 09/15/2023 19:15 BUN 14 mg/dL ()?? 09/15/2023 19:15 Creatinine-Blood 0.9 mg/dL ()?? 09/15/2023 19:15 Estimated GFR Creatinine 83 ML/MIN/1.73 M2 ()?? 09/15/2023 19:15 Calcium 9.3 mg/dL ()?? 09/15/2023 19:15 Protein, Total 8.0 Gm/dL ()?? 09/15/2023 19:15 Albumin 3.9 Gm/dL ()?? 09/15/2023 19:15 AG Ratio 1.0 ()?? 09/15/2023 19:15 Alkaline Phosphatase 80 units/L ()?? 09/15/2023 19:15 AST (SGOT) 16 units/L ()?? 09/15/2023 19:15 ALT (SGPT) 14 units/L ()?? 09/15/2023 19:15 Bilirubin, Total 0.6 mg/dL ()?? 09/15/2023 19:15 ?? ENDOCRINE/TUMOR MARKER Blood <1 mIU/mL ()?? 09/15/2023 19:15 ?? TOXICOLOGY/TDM Ethanol, Serum or Plasma NONE DETECTED mg/dL ()?? 09/15/2023 19:15 ?? UA/URINALYSIS Appear/Color, Urine YELLOW ()?? 09/15/2023 19:25 Specific [place], Urine 1.028 ()?? 09/15/2023 19:25 pH, Urine 6.0 ()?? 09/15/2023 19:25 Albumin, Urine 2+ (Abnormal)?? 09/15/2023 19:25 Glucose, Urine NEGATIVE ()?? 09/15/2023 19:25 Ketones, Urine NEGATIVE ()?? 09/15/2023 19:25 Bilirubin, Urine NEGATIVE ()?? 09/15/2023 19:25 Hemoglobin, Urine 3+ (Abnormal)?? 09/15/2023 19:25 Nitrite, Urine NEGATIVE ()?? 09/15/2023 19:25 Leukocyte, Urine NEGATIVE ()?? 09/15/2023 19:25 Urobilinogen NORMAL mg/dL ()?? 09/15/2023 19:25 WBC's, Urine 9 /HPF (High)?? 09/15/2023 19:25 RBC's, Urine >182 /HPF (High)?? 09/15/2023 19:25 Bacteria MODERATE HPF (Abnormal)?? 09/15/2023 19:25 Squamous Epith 10 /HPF (High)?? 09/15/2023 19:25 Mucus SLIGHT /LPF ()?? 09/15/2023 19:25 Hold Urine Culture Testing available 48 hours from time of collection. ()?? 09/15/2023 19:25 ?? URINE OTHER Est Creatinine Clearance 54.36 mL/min ()?? 09/15/2023 20:10 ?? VIROLOGY Influenza A PCR NEGATIVE ()?? 09/15/2023 19:20 Influenza B PCR NEGATIVE ()?? 09/15/2023 19:20 RSV PCR NEGATIVE ()?? 09/15/2023 19:20 COVID-19 PCR Specimen Source NASAL ()?? 09/15/2023 19:20 COVID-19 PCR Result NEGATIVE ()?? 09/15/2023 19:20 ? Abnormal Labs ?? BLOOD COUNT & DIFF ??Abs. Imm Gran ??0.0 k/mm3 () ??09/15/2023 19:15 ??Abs. NRBC ??0.0 k/mm3 () ??09/15/2023 19:15 ??Hct ??46.1 % (High) ??09/15/2023 19:15 ??Imm Gran ??0.4 % () ??09/15/2023 19:15 ??MCHC ??32.3 g/dL (Low) ??09/15/2023 19:15 ??Nucleated RBC (Automated) ??0.0 #/100 WBC'S () ??09/15/2023 19:15 ??RDW-SD ??42.9 femtoliters () ??09/15/2023 19:15 ? BLOOD GAS ??Bicarbonate, Estimated(Venous) ??36 mmol/L (High) ??09/15/2023 19:14 ??Specimen Type - Blood Gas ??VENOUS () ??09/15/2023 19:14 ??pCO2, Venous ??78 mm Hg (High) ??09/15/2023 19:14 ??pH, Venous ??7.28 (Low) ??09/15/2023 19:14 ? CARDIAC ??Nt-Probnp ??<36 pg/mL () ??09/15/2023 19:15 ? CHEM GENERAL ??AG Ratio ??1.0 () ??09/15/2023 19:15 ??Bicarbonate Level ??35 mmol/L (High) ??09/15/2023 19:15 ??Chloride ??97 mmol/L (Low) ??09/15/2023 19:15 ??Estimated GFR Creatinine ??83 ML/MIN/1.73 M2 () ??09/15/2023 19:15 ??Glucose Level ??158 mg/dL (High) ??09/15/2023 19:15 ? ENDOCRINE/TUMOR MARKER ??Blood ??<1 mIU/mL () ??09/15/2023 19:15 ? TOXICOLOGY/TDM ??Ethanol, Serum or Plasma ??NONE DETECTED mg/dL () ??09/15/2023 19:15 ? UA/URINALYSIS ??Albumin, Urine ??2+ (Abnormal) ??09/15/2023 19:25 ??Appear/Color, Urine ??YELLOW () ??09/15/2023 19:25 ??Bacteria ??MODERATE HPF (Abnormal) ??09/15/2023 19:25 ??Bilirubin, Urine ??NEGATIVE () ??09/15/2023 19:25 ??Glucose, Urine ??NEGATIVE () ??09/15/2023 19:25 ??Hemoglobin, Urine ??3+ (Abnormal) ??09/15/2023 19:25 ??Hold Urine Culture ??Testing available 48 hours from time of collection. () ??09/15/2023 19:25 ??Ketones, Urine ??NEGATIVE () ??09/15/2023 19:25 ??Leukocyte, Urine ??NEGATIVE () ??09/15/2023 19:25 ??Mucus ??SLIGHT /LPF () ??09/15/2023 19:25 ??Nitrite, Urine ??NEGATIVE () ??09/15/2023 19:25 ??Squamous Epith ??10 /HPF (High) ??09/15/2023 19:25 ??Urobilinogen ??NORMAL mg/dL () ??09/15/2023 19:25 ??WBC's, Urine ??9 /HPF (High) ??09/15/2023 19:25 ? VIROLOGY ??COVID-19 PCR Result ??NEGATIVE () ??09/15/2023 19:20 ??COVID-19 PCR Specimen Source ??NASAL () ??09/15/2023 19:20 ??Influenza A PCR ??NEGATIVE () ??09/15/2023 19:20 ??Influenza B PCR ??NEGATIVE () ??09/15/2023 19:20 ??RSV PCR ??NEGATIVE () ??09/15/2023 19:20 ? Note: Critical results are displayed in red. ? Blood Glucose Trend Glucose Level:??158 mg/dL??High (09/15/23 19:15:00) ? CBC, CBC w/Diff?? CBC?? Differential?? WBC: 9.9 k/mm3 (19:15) Abs. Neut: 6.3 k/mm3 (19:15) RBC: 4.89 m/mm3 (19:15) Abs. Lymph: 2.4 k/mm3 (19:15) Hct:??46.1 %??High (19:15) Abs. Yuba: 0.9 k/mm3 (19:15) RDW-SD: 42.9 femtoliters (19:15) Abs. Eo: 0.2 k/mm3 (19:15) Nucleated RBC (Automated): 0 #/100 WBC'S (19:15) Abs. Baso: 0.1 k/mm3 (19:15) Abs. NRBC: 0 k/mm3 (19:15) Neut %: 63.9 % (19:15) ?? Lymph %: 23.9 % (19:15) ?? [place] %: 9.2 % (19:15) ?? Eos %: 2.1 % (19:15) ?? Baso %: 0.5 % (19:15) ?? Imm Gran: 0.4 % (19:15) ?? Abs. Imm Gran: 0 k/mm3 (19:15) ? BMP, Mg, and Phos Anion Gap: 6 (19:15) Bicarbonate Level:??35 mmol/L??High (19:15) BUN: 14 mg/dL (19:15) Calcium: 9.3 mg/dL (19:15) Chloride:??97 mmol/L??Low (19:15) Creatinine-Blood: 0.9 mg/dL (19:15) Estimated GFR Creatinine: 83 ML/MIN/1.73 M2 (19:15) Glucose Level:??158 mg/dL??High (19:15) Potassium: 4.3 mmol/L (19:15) Sodium: 138 mmol/L (19:15) ?? Coagulation Profile?? No qualifying data available. ?? LFT Albumin: 3.9 Gm/dL (19:15) Alkaline Phosphatase: 80 units/L (19:15) ALT (SGPT): 14 units/L (19:15) AST (SGOT): 16 units/L (19:15) Bilirubin, Total: 0.6 mg/dL (19:15) ?? Urinalysis Albumin, Urine: 2+ Abnormal (19:25) Appear/Color, Urine: YELLOW (19:25) Bacteria: MODERATE Abnormal (19:25) Bilirubin, Urine: NEGATIVE (19:25) Est Creatinine Clearance: 54.36 mL/min (20:10) Glucose, Urine: NEGATIVE (19:25) Hemoglobin, Urine: 3+ Abnormal (19:25) Hold Urine Culture: Testing available 48 hours from time of collection. (19:25) Ketones, Urine: NEGATIVE (19:25) Leukocyte, Urine: NEGATIVE (19:25) Mucus: SLIGHT (19:25) Nitrite, Urine: NEGATIVE (19:25) pH, Urine: 6 (19:25) RBC's, Urine:??>182??High (19:25) Specific [place], Urine: 1.028 (19:25) Squamous Epith:??10 /HPF??High (19:25) Urobilinogen: NORMAL (19:25) WBC's, Urine:??9 /HPF??High (19:25) ?? Microbiology ?? COVID-19, RSV, and Flu A/B, Rapid PCR?? Completed?? Source: Nasal Body Site: Nose Collected Dt/Tm: 09/15/2023 18:47 Last Updated Dt/Tm: 09/15/2023 20:41 ? Cardiology Labs Nt-Probnp: <36 (09/15/23 19:15:00) ?? Blood Gases Specimen Type - Blood Gas: VENOUS (19:14) pH, Venous:??7.28??Low (19:14) pCO2, Venous:??78 mm Hg??High (19:14) pO2, Venous: 40 mm Hg (19:14) Bicarbonate, Estimated(Venous):??36 mmol/L??High (19:14) ?? Uric/LDH?? No qualifying data available. ? EKG study * Event Display: ECG 12-Lead Authored Date: Please click on pdf link to open report * Event Display: ECG 12-Lead Authored Date: Ventricular Rate: 86 BPM Atrial Rate: 86 BPM P-R Interval: 142 ms QRS Duration: 78 ms Q-T Interval: 372 ms QTC Calculation(Bazett): 445 ms P [place]: 33 degrees R [place]: 23 degrees T [place]: 73 degrees Normal sinus rhythm Normal ECG When compared with ECG of 23-DEC-2022 08:17, No significant change was found Confirmed by MARIO XAVIER MD ([id number]) on 09/16/2023 7:00:44 AM [place]: MARIO XAVIER MD Note * Ventura Persaud MD: PERFORM Event Display: Discharge/Transfer Note Hospital Authored Date: Patient: ??ZULEIMA TEMPLE ? Age:??48 Years?Sex:??Female?:??1975?? Patient Information Discharge Location: [facility] Primary Care Physician: Hazel Valadez DO Admit Date/Time: 09/15/23 14:40 Discharge Disposition Discharge Disposition: ?? Discharge Diagnosis Hypercarbia (R06.89) Urinary tract infection (N39.0) ?? _ Discharge Medications Albuterol (albuterol 0.083% inhalation solution)?3?Milliliter?2.5?Milligram?Inhalation?Every 6 hours?for 30?Days Cholecalciferol (Vitamin D3 2000 intl units oral capsule)?1?capsule?2,000?InternationalUnit?By Mouth?Daily Durable Medical Equipment (Walker)?See Instructions?Dispense: Heavy Duty wheeled walker with seat and brakesDx: Morbid obesity Durable Medical Equipment (Shower Chair)?See Instructions?Dispense: Bariatric Shower ChairDx:Morbid Obesity, risk of falls Durable Medical Equipment (Freestyle Jorden Monitor)?See Instructions?for [...] bs daily dx E11.9 Durable Medical Equipment (Freestyle Lite Test Strips)?See Instructions?use to check bs dailydx E11.9 Durable Medical Equipment (Freestyle Lite Lancets)?See Instructions?use to check bs daily dx e11.9 Durable Medical Equipment (bariatric walker)?See Instructions?for difficulty with ambulation Durable Medical Equipment (Oxygen Supplies)?See Instructions?2-3 L VIA NASAL CANNULA USE NIGHTLY WITH CPAPRESPIRATORY FAILURE HYPOXIA OSAG47.33 R09.02 Famotidine (famotidine 20 mg oral tablet)?20?Milligram?1?tablet?By Mouth?Daily?for 7?Days Fluticasone-Salmeterol (Advair Diskus 250 mcg-50 mcg inhalation powder)?1?puff(s)?Inhalation?2 times a day Furosemide (furosemide 40 mg oral tablet)?40?Milligram?1?tablet?By Mouth?2 times a day?for 90?Days Gabapentin (gabapentin 100 mg oral capsule)?100?Milligram?1?capsule?By Mouth?3 times a day Ibuprofen (ibuprofen 800 mg oral tablet)?800?Milligram?1?tablet?By Mouth?3 times a day?for painwith food or milk Metformin (metFORMIN 1000 mg oral tablet)?1?tab(s)?1,000?Milligram?By Mouth?2 times a day Miscellaneous Rx (bedside commode)?See Instructions?dx: CHF, REBEL, obesity, decrease strength and mobility Miscellaneous Rx (rolling walker)?See Instructions?dx: CHF, REBEL, obesity, decrease strength and mobility Multivitamin (multivitamin Multiple Vitamins oral capsule)?1?capsule?By Mouth?Daily ? Future Appointments 2022 1:00 PM EST ?? With: Ghazala Herrmann Where: [facility] [address] [place] [address]- Status: Pending Objective Assessment and Plan Hypercarbia (R06.89):??48 Years old??morbidly obese lady??woman with past medical history of DM2, HFpEF, REBEL not on CPAP, COPD,??REBEL on CPAP and 2 L??oxygen / came in with??generalized weakness fatigue lethargy and abdominal pain??all the work-up in the emergency room including CT of the abdomenwas unremarkable ? Fatigue and lethargy most likely second due to??morbid obesity??and possible chronic??REBEL symptoms Discussed with patient that she has to continue with CPAP??compliance would be important, continue with oxygen will need a referral from the PCP to??a weight loss program. ?? Abdominal pain likely secondary to functional pain No evidence of UTI CT of the abdomen was unremarkable ?? DM2 - SS Insulin 2-14 units, increasing q2 units q50 points to a goal of 70. - HFpEF ??Chest x-ray, 09/16/2023: Mild vascular congestion/volume overload Echocardiogram, 08/09/2020: Left ventricular ejection fraction 55 to 60%, normal systolic function poor visualization of right ventricle. Repeat echo as an outpatient Disposition, home ?? Discharge Planning:? Vital Signs?? Temperature: 98.4 DegF (09/17/23 06:22:00) Temperature Route: Oral (09/17/23 06:22:00) Pulse Rate:??98 bpm??High (09/17/23 06:22:00) Respiratory Rate: 20 br/min (09/17/23 06:22:00) Systolic Blood Pressure: 120 mm Hg (09/17/23 06:22:00) Diastolic Blood Pressure: 79 mm Hg (09/17/23 06:22:00) Blood pressure sites: Arm, left (09/17/23:22:00) Mean Arterial Pressure: 104 mm Hg (09/16/23 13:33:00) Pulse Pressure: 41 mm Hg (09/17/23 06:22:00) Oxygen Saturation: 94 % (09/17/23 06:22:00) Liters per Minute: 2 L/min (09/17/23 06:22:00) Mode of Delivery (Oxygen): Nasal cannula (09/17/23 06:22:00) Early Warning Score: 2 (09/17/23 07:38:41) ? . Physical Exam General: [Alert, in no acute cardiopulmonary distress.] Mental Status: [Oriented to person, place and time. Normal affect.] Head: [Normocephalic.] Eyes: [Pupils are equal, round and reactive to light. Extraocular muscles intact.] Ear, Nose and Throat: [Oropharynx clear, mucous membranes moist. Ears and nose without masses, lesions or deformities. Tympanic membranes clear bilaterally. Trachea midline.] Neck: [Supple, Full range of motion.] Respiratory: [Clear to auscultation and percussion. No wheezing, rales or rhonchi.] Cardiovascular: [Heart sounds normal. No thrills. Regular rate and rhythm, no murmurs, rubs or gallops.] Gastrointestinal: [Abdomen soft, non-tender, non-distended. Normal bowel sounds. No pulsatile mass.No hepatosplenomegaly.] Genitourinary: [No costovertebral angle tenderness.] Neurologic: [Cranial nerves II-XII grossly intact. No focal neurological deficits. Deep tendon reflexes +2 bilaterally. Flexor plantar response. Moves all extremities spontaneously. Sensation intact bilaterally.] Skin: [No rashes or lesions. No petechiae or purpura. No edema.] Musculoskeletal: [No cyanosis or clubbing. No gross deformities. Normal range of motion.] L Pending Results Add On Lab Order ordered on 09/16/2023 Add On Lab Order ordered on 09/16/2023 Add On Lab Order ordered on 09/16/2023 Add On Lab Order ordered on 09/16/2023 Complete Urinalysis ordered on 09/16/2023 Urine Culture ordered on 09/15/2023 Follow-Up Appointments Added Follow Up ?Time Frame ?Comments Valadez DO, Hazel?3 to 5 days Post Discharge Care Discharge ?09/17/23 7:19:00 EST Home Health Face to Face ^HomeHealthFTF Results Discharge Labs BLOOD COUNT & DIFF WBC 8.0 k/mm3 ()?? 09/17/2023 04:20 RBC 4.55 m/mm3 ()?? 09/17/2023 04:20 Hgb 13.8 Gm/dL ()?? 09/17/2023 04:20 Hct 43.3 % ()?? 09/17/2023 04:20 MCV 95.2 femtoliters ()?? 09/17/2023 04:20 MCH 30.3 pg ()?? 09/17/2023 04:20 MCHC 31.9 g/dL (Low)?? 09/17/2023 04:20 Platelet Count 242 k/mm3 ()?? 09/17/2023 04:20 RDW-SD 42.5 femtoliters ()?? 09/17/2023 04:20 MPV 10.3 femtoliters ()?? 09/17/2023 04:20 Nucleated RBC (Automated) 0.0 #/100 WBC'S ()?? 09/17/2023 04:20 Abs. NRBC 0.0 k/mm3 ()?? 09/17/2023 04:20 Abs. Neut 4.8 k/mm3 ()?? 09/17/2023 04:20 Abs. Lymph 1.9 k/mm3 ()?? 09/17/2023 04:20 Abs. [place] 1.0 k/mm3 (High)?? 09/17/2023 04:20 Abs. Eo 0.2 k/mm3 ()?? 09/17/2023 04:20 Abs. Baso 0.0 k/mm3 ()?? 09/17/2023 04:20 Neut % 59.9 % ()?? 09/17/2023 04:20 Lymph % 24.2 % ()?? 09/17/2023 04:20 [place] % 12.3 % (High)?? 09/17/2023 04:20 Eos % 2.6 % ()?? 09/17/2023 04:20 Baso % 0.5 % ()?? 09/17/2023 04:20 Imm Gran 0.5 % ()?? 09/17/2023 04:20 Abs. Imm Gran 0.0 k/mm3 ()?? 09/17/2023 04:20 ?? BLOOD GAS Specimen Type - Blood Gas VENOUS ()?? 09/15/2023 19:14 pH, Venous 7.28 (Low)?? 09/15/2023 19:14 pCO2, Venous 78 mm Hg (High)?? 09/15/2023 19:14 pO2, Venous 40 mm Hg ()?? 09/15/2023 19:14 Bicarbonate, Estimated(Venous) 36 mmol/L (High)?? 09/15/2023 19:14 ? CARDIAC Nt-Probnp <36 pg/mL ()?? 09/15/2023 19:15 ? CHEM GENERAL Sodium 138 mmol/L ()?? 09/17/2023 03:22 Potassium 4.7 mmol/L ()?? 09/17/2023 03:22 Chloride 100 mmol/L ()?? 09/17/2023 03:22 Bicarbonate Level 34 mmol/L (High)?? 09/17/2023 03:22 Anion Gap 4 ()?? 09/17/2023 03:22 Glucose Level 158 mg/dL (High)?? 09/15/2023 19:15 Glucose, POC 153 mg/dL (High)?? 09/17/2023 07:37 Hemoglobin A1C (Monitoring) 7.3 % (High)?? 09/16/2023 11:18 BUN 16 mg/dL ()?? 09/17/2023 03:22 Creatinine-Blood 0.8 mg/dL ()?? 09/17/2023 03:22 Estimated GFR Creatinine 90 ML/MIN/1.73 M2 ()?? 09/17/2023 03:22 Calcium 9.3 mg/dL ()?? 09/15/2023 19:15 Magnesium 2.0 mg/dL ()?? 09/17/2023 03:22 Protein, Total 8.0 Gm/dL ()?? 09/15/2023 19:15 Albumin 3.9 Gm/dL ()?? 09/15/2023 19:15 AG Ratio 1.0 ()?? 09/15/2023 19:15 Alkaline Phosphatase 80 units/L ()?? 09/15/2023 19:15 AST (SGOT) 16 units/L ()?? 09/15/2023 19:15 ALT (SGPT) 14 units/L ()?? 09/15/2023 19:15 Bilirubin, Total 0.6 mg/dL ()?? 09/15/2023 19:15 ?? ENDOCRINE/TUMOR MARKER Blood <1 mIU/mL ()?? 09/15/2023 19:15 ? MISC. CHEMISTRY 25 OH-Vitamin D Level 17.2 ng/mL (Low)?? 09/16/2023 11:18 ? TOXICOLOGY/TDM Ethanol, Serum or Plasma NONE DETECTED mg/dL ()?? 09/15/2023 19:15 ? UA/URINALYSIS Appear/Color, Urine YELLOW ()?? 09/15/2023 19:25 Specific [place], Urine 1.028 ()?? 09/15/2023 19:25 pH, Urine 6.0 ()?? 09/15/2023 19:25 Albumin, Urine 2+ (Abnormal)?? 09/15/2023 19:25 Glucose, Urine NEGATIVE ()?? 09/15/2023 19:25 Ketones, Urine NEGATIVE ()?? 09/15/2023 19:25 Bilirubin, Urine NEGATIVE ()?? 09/15/2023 19:25 Hemoglobin, Urine 3+ (Abnormal)?? 09/15/2023 19:25 Nitrite, Urine NEGATIVE ()?? 09/15/2023 19:25 Leukocyte, Urine NEGATIVE ()?? 09/15/2023 19:25 Urobilinogen NORMAL mg/dL ()?? 09/15/2023 19:25 WBC's, Urine 9 /HPF (High)?? 09/15/2023 19:25 RBC's, Urine >182 /HPF (High)?? 09/15/2023 19:25 Bacteria MODERATE HPF (Abnormal)?? 09/15/2023 19:25 Squamous Epith 10 /HPF (High)?? 09/15/2023 19:25 Mucus SLIGHT /LPF ()?? 09/15/2023 19:25 Hold Urine Culture Testing available 48 hours from time of collection. ()?? 09/15/2023 19:25 ? URINE OTHER Est Creatinine Clearance 61.15 mL/min ()?? 09/16/2023 12:21 ? VIROLOGY Influenza A PCR NEGATIVE ()?? 09/15/2023 19:20 Influenza B PCR NEGATIVE ()?? 09/15/2023 19:20 RSV PCR NEGATIVE ()?? 09/15/2023 19:20 COVID-19 PCR Specimen Source NASAL ()?? 09/15/2023 19:20 COVID-19 PCR Result NEGATIVE ()?? 09/15/2023 19:20 ? Microbiology ?? COVID-19, RSV, and Flu A/B, Rapid PCR?? Completed?? Source: Nasal Body Site: Nose Collected Dt/Tm: 09/15/2023 18:47 Last Updated Dt/Tm: 09/15/2023 20:41 ? 25??minutes spent on discharge Patient Care team information Care Team Personnel [...] Roman RN Position: [facility] SN RN Member Role: Primary Care Nurse Name: Ashley Brownlee RN Position: [facility] ED RN W/OE and Tasks Member Role: Primary Care Nurse Name: Zuly (INSTR) Elma Position: [facility] RN Member Role: Primary Care Nurse Name: Amanda Huerta RN Position: [facility] RN Member Role: Primary Care Nurse Name: Yessica Stock Position: [facility] RN Member Role: Primary Care Nurse Name: Hazel Valadez DO Position: [facility] Resident Member Role: PCP Address: Address: [address] [place] [id number] Name: Juli Calles RN Position: [facility] RN Member Role: Primary Care Nurse Name: Jorge MORIN Attending Position: [facility] ED Medicine MD Name: Luis Sood Position: [facility] ED TA [facility] Member Role: American History Teacher Name: Alona uDong RN Position: [facility] ED RN W/OE and Tasks Member Role: Patient Care Provider Name: Radha Arteaga Position: [facility] ED RN W/OE and Tasks Member Role: Patient Care Provider Care Team Related Persons Name: NABILA OQUENDO Name: ZULEIMA MCKEON Address: [place] [address] Name: LUCITA TEMPLE Address: home Name: LARA TEMPLE Address: home [address] [place] [address] Name: JUSTIN HINES
--- OUTSIDE RECORDS SUMMARY | 2024-04-04 10:10 | XMS_ITS | Continuity of Care Document ---
Author Organization [facility] Address [address] [place] [address]- Care Team Providers Care Script Coordinator Name Role Phone Valadez DO Hazel Primary Care Physician Encounter [facility] Date(s): 09/28/22 - 10/28/22 [facility] [address] [place] [address]- Allergies, Adverse Reactions, Alerts Substance Reaction Severity [...] Reason: Med Not Available 3Result Comment: [10/30/2014] [id number] 4Admin Note: VIS GIVEN DATED: 04/29/12 5Admin Note: vis given 05/23/11 6Admin Note: VIS GIVEN-DATED 06/07/10 7Admin Note: vis give dated 08/03/09 8Admin Note: VIS GIVEN VIS DATE 05/08/06 Medications albuterol 0.083% inhalation solution 3 mL = 2.5 mg, Inhalation, Every 6 hours, # 360 mL, 11 Refills, Maintenance, 07/17/22 11:50:00 EDT,Solution, [email or web address] #[id number], 152, cm, 07/12/22 13:07:00 EDT, Height, 175.5, [...] 01/23/22 17:08:00 EDT, Route to Pharmacy Electronically, [email or web address] #[id number], 152, cm, 06/17/21 8:41:00 EDT, Height, 175.5, kg, 08/09/20 0:18:00... Start Date: 01/23/22 Stop Date: 01/07/25 Status: Ordered gabapentin 100 mg oral capsule 100 mg, 1, capsule, By Mouth, 3 times a day, # 90 capsule, Refills 0, Tot. Refills 0, Maintenance, 07/12/22 14:00:00 EDT, Route to Pharmacy Electronically, [facility] #[id number], Partial fill upon patient request if the prescription is for a kelly... Start Date: 07/12/22 Status: Ordered lisinopril 5 mg oral tablet 5 mg, 1, tablet, By Mouth, Daily, # 30 tablet, Refills 2, Tot. Refills 2, Maintenance, 07/17/22 17:03:00 EDT, Route to Pharmacy Electronically, [email or web address] #[id number], Please disregard 10mg dosing, 152, cm, 07/12/22 13:07:00 EDT, Height, 175.5, k... Start Date: 07/17/22 Status: Ordered metFORMIN 1000 mg oral tablet 1 tablet = 1,000 mg, By Mouth, 2 times a day, # 60 tablet, 11 Refills, Maintenance, 07/12/22 13:42:00 EDT, Tablet, [email or web address] #[id number], cancel previous metformin scripts, 152, cm, 07/12/22 13:07:00 EDT, Height, 175.5, kg, 08/09/20 0:18:00 EDT,... Start Date: 07/12/22 Status: Ordered Mucinex 600 mg oral tablet, extended release 1 tablet = 600 mg, By Mouth, Every 12 hours, for 7 days, # 14 tablet, 0 Refills, Acute 10/31/22 15:33:00 EST, 10/24/22 15:33:00 EST, ER Tablet, [facility] #[id number], Partial fill upon patient request if the [...] 09/01/22 15:06:00 EDT, Route to Pharmacy Electronically, [facility] #[id number], Partial... Start Date: 09/01/22 Status: Ordered rolling [...] 11 Refills, Maintenance, 04/21/22 12:34:00 EDT, Powder, [facility] #[id number], Partial fill upon patient request if the prescription is for a schedule II opioid drug., 1 puffs... Start Date: 04/21/22 Stop Date: 04/16/23 Status: Ordered Trulicity Pen 0.75 mg/0.5 mL subcutaneous solution 0.5 mL = 0.75 mg, Subcutaneous Injection, Every week, rotate injection sites, # 2 mL, 3 Refills, Maintenance, 07/12/22 14:01:00 EDT, Solution, [facility] #[id number], Partial fill upon patient request if the prescription is for a schedule II opio... Start Date: 07/12/22 Status: Ordered Vitamin D3 2000 intl units oral capsule 1 capsule = 2,000 International_Units, By Mouth, Daily, # 60 capsule, 2 Refills, Maintenance, 07/17/22 16:56:00 EDT, Capsule, [facility] #[id number], Partial fill upon patient request if the [...] Confirmed Active DMII Confirmed Active 1DrRyder Wade [phone], Norma. Dx 06/07/09 Social History Social History Type Response Smoking Status Former smoker, quit more than 30 days ago entered on: 06/11/19 Sex Patient Care team information Care Team Personnel Name: Maty Valencia RN Position: [facility] RN Member Role: Primary Care Nurse Name: Danya Roman RN Position: [facility] Nurse Member Role: Primary Care Nurse Name: Kem RN, Ashley Position: [facility] ED RN W/OE and Tasks Member Role: Primary Care Nurse Name: Becca Enrique RN Position: [facility] RN Member Role: Primary Care Nurse Name: Elma Caruso (INSTR) Position: [facility] RN Member Role: Primary Care Nurse Name: Amanda Huerta RN Position: [facility] RN Member Role: Primary Care Nurse Name: Hazel Valadez DO Position: [facility] Resident Member Role: PCP Address: Address: [address] [place] [address] [place] [address]- Name: Juli Calles RN Position: [facility] RN Member Role: Primary Care Nurse Care Team Related Persons Name: ZULEIMA MCKEON Address: [place] [address] Name: LUCITA TEMPLE Address: home [address] [address] Name: LARA TEMPLE Address: home [address] [place] [address] Name: JUSTIN HINES
--- OUTSIDE RECORDS SUMMARY | 2024-04-04 10:10 | XMS_ITS | Continuity of Care Document ---
Author Organization [facility] Address [address] [place] [address]- Care Team Providers Care Guest Laundry Attendant Name Role Phone Joey Steele MD Primary Care Physician Encounter [facility] Date(s): 12/15/19 - 12/25/[address] [address]- [facility] Attending Physician: Vannesa Paulino Admitting Physician: AdmtrVannesa Referring Physician: Admtr, Vannesa Allergies, Adverse Reactions, Alerts Substance Reaction Severity [...] (DT) 6 06/15/09 Given 1Result Comment: [10/30/2014] [id number] 2Admin Note: VIS GIVEN DATED: 04/29/12 3Admin [...] 11/22/18 12:58:17 EST, Route to Pharmacy Electronically, [id number], [facility] Start Date: 11/22/18 Stop Date: 11/17/19 Status: Ordered Flovent HFA 220 mcg/inh inhalation aerosol 1 puffs, Inhalation, 2 times a day, Maintenance, 06/11/19 11:24:36 EDT, Aerosol Start Date: 06/11/19 Status: Ordered metFORMIN 1000 mg oral tablet 1 tablet = 1,000 mg, By Mouth, 2 times a day, takes once daily for 2 weeks, then increase to BID, #60 tablet, 11 Refills, Maintenance, 12/27/18 16:57:58 EST, Tablet Start Date: 12/27/18 Status: Ordered Nebulizer/Compressor See Instructions, # 1 application, Maintenance, to use with albuterol, 06/12/19 9:39:08 EDT, Compound Start Date: 06/12/19 Status: Ordered Oxygen Supplies See Instructions, # 1 application, Maintenance, 2L with exertion dx: hypoxia w/ ambulation, 02/13/19 19:42:21 EDT, Compound Start Date: 02/13/19 Status: Ordered Shower Chair See Instructions, # 1 application, Maintenance, DX: BLE knee osteoarthritis (M17.0) Length of need (Lifetime), 11/14/18 15:34:29 EST, Compound Start Date: 11/14/18 Status: Ordered Walker See Instructions, # 1 application, Maintenance, DX: BLE knee osteoarthritis (M17.0) Length of need (Lifetime), 11/14/18 15:34:37 EST, Compound Start Date: 11/14/18 Status: Ordered Problem List Condition Effective Dates [...] home CPAP(Confirmed) Active DMII(Confirmed) Active 1DrRyder Wade [phone], Norma. Dx 06/07/09 Social History Social History Type Response Smoking Status Former smoker, quit more than 30 days ago entered on: 06/11/19 Sex
--- OUTSIDE RECORDS SUMMARY | 2024-04-04 10:10 | XMS_ITS | Continuity of Care Document ---
Author Organization [facility] Address [address] [facility], [address] [place] [address]- Care Team Providers Care Grey Stock Recorder Name Role Phone Hazel Valadez DO Primary Care Physician Encounter 07/14/22 - 08/20/22 [facility] [address] [facility], [address] [place] [address]- Attending Physician: Flo Santillan NP Admitting Physician: [facility] DIRECT[facility] [employer] Referring Physician: Jacque [facility] DIRECT[employer] Allergies, Adverse Reactions, Alerts Substance Reaction Severity [...] Reason: Med Not Available 3Result Comment: [10/30/2014] [id number] 4Admin Note: VIS GIVEN DATED: 04/29/12 5Admin Note: vis given 05/23/11 6Admin Note: VIS GIVEN-DATED 06/07/10 7Admin Note: vis give dated 08/03/09 8Admin Note: VIS GIVEN VIS DATE 05/08/06 Medications albuterol 0.083% inhalation solution 3 mL = 2.5 mg, Inhalation, Every 6 hours, # 360 mL, 11 Refills, Maintenance, 07/17/22 11:50:00 EDT,Solution, [facility] #[id number], 152, cm, 07/12/22 13:07:00 EDT, Height, 175.5, kg, 08/09/20 0:18:00 EDT, Dry Weight Start Date: 07/17/22 Stop Date: 07/12/23 Status: Ordered albuterol CFC free 90 mcg/inh inhalation aerosol 2, puffs, Inhalation, 4 times a day, PRN, FOR WHEEZING AND SHORTNESS OF BREATH, # 1 each, Refills 5, Tot. Refills 5, Maintenance, 08/24/21 20:48:00 EDT, Route to Pharmacy Electronically, [id number], [facility] #[id number]... Start Date: 08/24/21 Stop Date: 02/20/22 [...] 01/23/22 17:08:00 EDT, Route to Pharmacy Electronically, [facility] #[id number], 152, cm, 06/17/21 8:41:00 EDT, Height, 175.5, kg, 08/09/20 0:18:00... Start Date: 01/23/22 Stop Date: 01/07/25 Status: Ordered gabapentin 100 mg oral capsule 100 mg, 1, capsule, By Mouth, 3 times a day, # 90 capsule, Refills 0, Tot. Refills 0, Maintenance, 07/12/22 14:00:00 EDT, Route to Pharmacy Electronically, [facility] #[id number], Partial fill upon patient request if the prescription is for a kelly... Start Date: 07/12/22 Status: Ordered hydrOXYzine hydrochloride 25 mg oral tablet 1 tablet = 25 mg, By Mouth, 4 times a day, PRN for anxiety, # 40 tablet, 1 Refills, Maintenance, 07/12/22 13:42:00 EDT, Tablet, [facility] #[id number], Partial fill upon patient request if the prescription is for a schedule II opioid drug., 152,... Start Date: 07/12/22 Stop Date: 09/10/22 Status: Ordered lisinopril 5 mg oral tablet 5 mg, 1, tablet, By Mouth, Daily, # 30 tablet, Refills 2, Tot. Refills 2, Maintenance, 07/17/22 17:03:00 EDT, Route to Pharmacy Electronically, [facility] #[id number], Please disregard 10mg dosing, 152, cm, 07/12/22 13:07:00 EDT, Height, 175.5, k... Start Date: 07/17/22 Status: Ordered metFORMIN 1000 mg oral tablet 1 tablet = 1,000 mg, By Mouth, 2 times a day, # 60 tablet, 11 Refills, Maintenance, 07/12/22 13:42:00 EDT, Tablet, [facility] #[id number], cancel previous metformin scripts, 152, cm, 07/12/22 [...] 10 Refills, Maintenance, 10/14/20 15:09:00 EST, Tablet, [facility] #[id number], 152, cm, 08/13/20 13:28:00 EDT, Height, 175.5, [...] 11 Refills, Maintenance, 04/21/22 12:34:00 EDT, Powder, [facility] #[id number], Partial fill upon patient request if the prescription is for a schedule II opioid drug., 1 puffs... Start Date: 04/21/22 Stop Date: 04/16/23 Status: Ordered Trulicity Pen 0.75 mg/0.5 mL subcutaneous solution 0.5 mL = 0.75 mg, Subcutaneous Injection, Every week, rotate injection sites, # 2 mL, 3 Refills, Maintenance, 07/12/22 14:01:00 EDT, Solution, [facility] #[id number], Partial fill upon patient request if the prescription is for a schedule II opio... Start Date: 07/12/22 Status: Ordered Vitamin D3 2000 intl units oral capsule 1 capsule = 2,000 International_Units, By Mouth, Daily, # 60 capsule, 2 Refills, Maintenance, 07/17/22 16:56:00 EDT, Capsule, [facility] #[id number], Partial fill upon patient request if the [...] Confirmed Active DMII Confirmed Active 1DrRyder Wade [phone], oNrma. Dx 06/07/09 Social History Social History Type Response Smoking Status Former smoker, quit more than 30 days ago entered on: 06/11/19 Sex Patient Care team information Personnel Name: Hazel Valadez DO Address: Address: [address] [place] [address] [place] [address]-
--- OUTSIDE RECORDS SUMMARY | 2024-04-04 10:10 | XMS_ITS | Continuity of Care Document ---
Author Organization [facility] Address [address] [place] [address]- Care Team Providers Care Wellness Educator Name Role Phone Hazel Valadez DO Primary Care Physician [facility]counter [facility] Date(s): 07/20/22 - 08/19/22 [facility] [address] [place] [address]- Attending Physician: Vannesa Paulino Admitting Physician: AdmVannesa koehler Referring Physician: AdmtrVannesa Allergies, Adverse Reactions, Alerts [...] acel(Tdap) 10/06/10 Recorded diphtheria-tetanus toxoids (DT) 8 8/18/09 Given tetanus-diphtheria toxoids (Td) 12/23/08 Recorded 1Result Comment: in error 2Early/Late Reason: Med Not Available 3Result Comment: [10/30/2014] [id number] 4Admin Note: VIS GIVEN DATED: 04/29/12 5Admin Note: vis given 05/23/11 6Admin Note: VIS GIVEN-DATED 06/07/10 7Admin Note: vis give dated 08/03/09 8Admin Note: VIS GIVEN VIS DATE 05/08/06 Medications albuterol 0.083% inhalation solution 3 mL = 2.5 mg, Inhalation, Every 6 hours, # 360 mL, 11 Refills, Maintenance, 07/17/22 11:50:00 EDT,Solution, [facility] #[id number], 152, cm, 07/12/22 13:07:00 EDT, Height, 175.5, kg, 08/09/20 0:18:00 EDT, Dry Weight Start Date: 07/17/22 Stop Date: 07/12/23 Status: Ordered albuterol CFC free 90 mcg/inh inhalation aerosol 2, puffs, Inhalation, 4 times a day, PRN, FOR WHEEZING AND SHORTNESS OF BREATH, # 1 each, Refills 5, Tot. Refills 5, Maintenance, 08/24/21 20:48:00 EDT, Route to Pharmacy Electronically, [id number], [facility] #[id number]... Start Date: 08/24/21 Stop Date: 02/20/22 [...] 01/23/22 17:08:00 EDT, Route to Pharmacy Electronically, [facility] #[id number], 152, cm, 06/17/21 8:41:00 EDT, Height, 175.5, kg, 08/09/20 0:18:00... Start Date: 01/23/22 Stop Date: 01/07/25 Status: Ordered gabapentin 100 mg oral capsule 100 mg, 1, capsule, By Mouth, 3 times a day, # 90 capsule, Refills 0, Tot. Refills 0, Maintenance, 07/12/22 14:00:00 EDT, Route to Pharmacy Electronically, [facility] #[id number], Partial fill upon patient request if the prescription is for a kelly... Start Date: 07/12/22 Status: Ordered hydrOXYzine hydrochloride 25 mg oral tablet 1 tablet = 25 mg, By Mouth, 4 times a day, PRN for anxiety, # 40 tablet, 1 Refills, Maintenance, 07/12/22 13:42:00 EDT, Tablet, [facility] #[id number], Partial fill upon patient request if the prescription is for a schedule II opioid drug., 152,... Start Date: 07/12/22 Stop Date: 09/10/22 Status: Ordered lisinopril 5 mg oral tablet 5 mg, 1, tablet, By Mouth, Daily, # 30 tablet, Refills 2, Tot. Refills 2, Maintenance, 07/17/22 17:03:00 EDT, Route to Pharmacy Electronically, [facility] #[id number], Please disregard 10mg dosing, 152, cm, 07/12/22 13:07:00 EDT, Height, 175.5, k... Start Date: 07/17/22 Status: Ordered metFORMIN 1000 mg oral tablet 1 tablet = 1,000 mg, By Mouth, 2 times a day, # 60 tablet, 11 Refills, Maintenance, 07/12/22 13:42:00 EDT, Tablet, [facility] #[id number], cancel previous metformin scripts, 152, cm, 07/12/22 [...] 10 Refills, Maintenance, 10/14/20 15:09:00 EST, Tablet, [facility] #[id number], 152, cm, 08/13/20 13:28:00 EDT, Height, 175.5, [...] 11 Refills, Maintenance, 04/21/22 12:34:00 EDT, Powder, [facility] #[id number], Partial fill upon patient request if the prescription is for a schedule II opioid drug., 1 puffs... Start Date: 04/21/22 Stop Date: 04/16/23 Status: Ordered Trulicity Pen 0.75 mg/0.5 mL subcutaneous solution 0.5 mL = 0.75 mg, Subcutaneous Injection, Every week, rotate injection sites, # 2 mL, 3 Refills, Maintenance, 07/12/22 14:01:00 EDT, Solution, [facility] #[id number], Partial fill upon patient request if the prescription is for a schedule II opio... Start Date: 07/12/22 Status: Ordered Vitamin D3 2000 intl units oral capsule 1 capsule = 2,000 International_Units, By Mouth, Daily, # 60 capsule, 2 Refills, Maintenance, 07/17/22 16:56:00 EDT, Capsule, [facility] #[id number], Partial fill upon patient request if the [...] Confirmed Active DMII Confirmed Active 1DrRyder Wade [phone], Norma. Dx 06/07/09 Social History Social History Type Response Smoking Status Former smoker, quit more than 30 days ago entered on: 06/11/19 Sex Patient Care team information Personnel Name: Hazel Valadez DO Address: Address: [address] [place] [address] [place] [address]-
--- OUTSIDE RECORDS SUMMARY | 2024-04-04 10:10 | XMS_ITS | Continuity of Care Document ---
Author Organization [facility] Address [address] [place] [address]- Care Team Providers Care Nfl Player Name Role Phone Marta Valadez DOha Primary Care Physician [phone] Encounter [facility] Date(s): 12/06/23 - 01/05/24 [facility] [address] [place] [id number] Allergies, Adverse Reactions, Alerts Substance Reaction [...] Reason: Med Not Available 2Result Comment: [10/30/2014] [id number] 3Admin Note: VIS GIVEN DATED: 04/29/12 4Admin Note: vis given 05/23/11 5Admin Note: VIS GIVEN-DATED 06/07/10 6Admin Note: vis give dated 08/03/09 7Admin Note: VIS GIVEN VIS DATE 05/08/06 Medications Advair Diskus 250 mcg-50 mcg inhalation powder 1, puffs, Inhalation, 2 times a day, # 28 each, Refills 0, Tot. Refills 0, Maintenance, 09/06/23 14:10:00 EST, Powder, Route to Pharmacy Electronically, [id number], [facility] #[id number], 153, cm, 08/19/23 2:04:00 EDT,... Start Date: 09/06/23 Status: Ordered albuterol 0.083% inhalation solution 3 mL = 2.5 mg, Inhalation, Every 6 hours, # 360 mL, 11 Refills, Maintenance, 09/06/23 8:33:00 EST, Solution, [facility] #[id number], 153, cm, 08/19/23 2:04:00 EDT, Height, 171.8, [...] 01/07/25 17:08:00 EDT, Route to Pharmacy Electronically, [facility] #[id number], 149.86, cm, 02/09/23 15:52:00 EDT, Height, 172.3, kg, 11/26/22 5:4... Start Date: 01/07/25 Stop Date: 12/23/27 Status: Ordered gabapentin 100 mg oral capsule 100 mg, 1, capsule, By Mouth, 3 times a day, # 90 capsule, Refills 0, Tot. Refills 0, Maintenance, 12/14/22 17:21:00 EST, Route to Pharmacy Electronically, [facility] #[id number], Partial fill upon patient request if the prescription is for a kelly... Start Date: 12/14/22 Status: Ordered metFORMIN 1000 mg oral tablet 1 tablet = 1,000 mg, By Mouth, 2 times a day, # 60 tablet, 11 Refills, Maintenance, 09/24/23 9:06:00 EST, Tablet, [facility] #[id number], cancel previous metformin scripts, 153, cm, 09/16/23 13:33:00 EST, Height, 176, kg, 09/16/23 13:33:00 EST, D... Start Date: 09/24/23 Status: Ordered multivitamin Multiple Vitamins oral capsule 1 capsule, By Mouth, Daily, # 30 capsule, 0 Refills, Maintenance, 09/06/23 8:33:00 EST, Capsule, [facility] #[id number], Partial fill upon patient request if the [...] 2 Refills, Maintenance, 09/24/23 9:06:00 EST, Capsule, [facility] #[id number], Partial fill upon patient request if the [...] Severe obesity Confirmed Active DMII Confirmed Active 1DryRder Wade [phone], Norma. Dx 06/07/09 Social History Social History Type Response Smoking Status Former smoker, quit more than 30 days ago entered on: 06/11/19 Sex Patient Care team information Care Team Personnel Name: Becca Crain RN Position: S RN Member Role: Primary Care Nurse Name: Jayna Sandhu RN Position: S RN Member Role: Primary Care Nurse Name: Erik RNMaty Position: [facility] RN Member Role: Primary Care Nurse Name: Roger Peña RN Position: [facility] RN Supv Member Role: Primary Care Nurse Name: Mihir Jackson RN Position: [facility] RN Member Role: Primary Care Nurse Name: Danya Roman RN Position: [facility] SN RN Member Role: Primary Care Nurse Name: Kem RNAshley Position: [facility] ED RN W/OE and Tasks Member Role: Primary Care Nurse Name: Amanda Huerta RN Position: S RN Member Role: Primary Care Nurse Name: Yessica Stock RN Position: [facility] RN Member Role: Primary Care Nurse Name: Hazel Valadez DO Position: [facility] Resident Member Role: PCP Address: Address: [address] [place] [address] Name: Juli Calles RN Position: [facility] RN Member Role: Primary Care Nurse Care Team Related Persons Name: ZULEIMA MCKEON Address: [place] [address] Name: ZAYRA STREETER Address: home [address] [address] Name: LUCITA TEMPLE Address: home Name: LARA TEMPLE Address: [address] [address] Name: JUSTIN HINES
--- OUTSIDE RECORDS SUMMARY | 2024-04-04 10:10 | XMS_ITS | Continuity of Care Document ---
Author Organization [facility] Address [address] [place] [address]- Care Team Providers Care Sheriff'S Detective Name Role Phone Hazel Valadez DO Primary Care Physician [facility]counter [facility] Date(s): 07/12/23 - 10/06/23 [facility] [address] [place] [address]- Attending Physician: Maximus Rosen MD Admitting Physician: Maximus Rosen MD Allergies, Adverse Reactions, Alerts Substance Reaction [...] Reason: Med Not Available 2Result Comment: [10/30/2014] [id number] 3Admin Note: VIS GIVEN DATED: 04/29/12 4Admin Note: vis given 05/23/11 5Admin Note: VIS GIVEN-DATED 06/07/10 6Admin Note: vis give dated 08/03/09 7Admin Note: VIS GIVEN VIS DATE 05/08/06 Medications Advair Diskus 250 mcg-50 mcg inhalation powder 1, puffs, Inhalation, 2 times a day, # 28 each, Refills 0, Tot. Refills 0, Maintenance, 09/06/23 14:10:00 EST, Powder, Route to Pharmacy Electronically, [id number], [facility] #[id number], 153, cm, 08/19/23 2:04:00 EDT,... Start Date: 09/06/23 Status: Ordered albuterol 0.083% inhalation solution 3 mL = 2.5 mg, Inhalation, Every 6 hours, # 360 mL, 11 Refills, Maintenance, 09/06/23 8:33:00 EST, Solution, [facility] #[id number], 153, cm, 08/19/23 2:04:00 EDT, Height, 171.8, [...] 01/07/25 17:08:00 EDT, Route to Pharmacy Electronically, [facility] #[id number], 149.86, cm, 02/09/23 15:52:00 EDT, Height, 172.3, kg, 11/26/22 5:4... Start Date: 01/07/25 Stop Date: 12/23/27 Status: Ordered gabapentin 100 mg oral capsule 100 mg, 1, capsule, By Mouth, 3 times a day, # 90 capsule, Refills 0, Tot. Refills 0, Maintenance, 12/14/22 17:21:00 EST, Route to Pharmacy Electronically, [facility] #[id number], Partial fill upon patient request if the prescription is for a kelly... Start Date: 12/14/22 Status: Ordered metFORMIN 1000 mg oral tablet 1 tablet = 1,000 mg, By Mouth, 2 times a day, # 60 tablet, 11 Refills, Maintenance, 09/24/23 9:06:00 EST, Tablet, [facility] #[id number], cancel previous metformin scripts, 153, cm, 09/16/23 13:33:00 EST, Height, 176, kg, 09/16/23 13:33:00 EST, D... Start Date: 09/24/23 Status: Ordered multivitamin Multiple Vitamins oral capsule 1 capsule, By Mouth, Daily, # 30 capsule, 0 Refills, Maintenance, 09/06/23 8:33:00 EST, Capsule, [email or web address] #[id number], Partial fill upon patient request if the [...] 2 Refills, Maintenance, 09/24/23 9:06:00 EST, Capsule, [email or web address] #[id number], Partial fill upon patient request if the [...] Confirmed Active DMII Confirmed Active 1DrRyder Wade [phone], Norma. Dx 06/07/09 Social History Social History Type Response Smoking Status Former smoker, quit more than 30 days ago entered on: 06/11/19 Sex Patient Care team information Care Team Personnel Name: Becca Crain RN Position: [facility] RN Member Role: Primary Care Nurse Name: Jayna Sandhu RN Position: S RN Member Role: Primary Care Nurse Name: Maty Valencia RN Position: [facility] RN Member Role: Primary Care Nurse Name: Roger Peña RN Position: [facility] RN Supv Member Role: Primary Care Nurse Name: Mihir Jackson RN Position: [facility] RN Member Role: Primary Care Nurse Name: Danya Roman RN Position: [facility] SN RN Member Role: Primary Care Nurse Name: Ashley Brownlee RN Position: [facility] ED RN W/OE and Tasks Member Role: Primary Care Nurse Name: Elma Caruso (INSTR) Position: [facility] RN Member Role: Primary Care Nurse Name: Amanda Huerta RN Position: S RN Member Role: Primary Care Nurse Name: Yessica Stock Position: S RN Member Role: Primary Care Nurse Name: Hazel Valadez DO Position: S Resident Member Role: PCP Address: Address: [address] [place] [address] [place] [address]- Name: Juli Calles RN Position: [facility] RN Member Role: Primary Care Nurse Care Team Related Persons Name: ZULEIMA MCKEON Address: [place] [address] Name: ZAYRA STREETER Address: home [address] [address] Name: LUCITA TEMPLE Address: home Name: LARA TEMPLE Address: home [address] [address] Name: JUSTIN HINES
--- OUTSIDE RECORDS SUMMARY | 2024-04-04 10:10 | XMS_ITS | Continuity of Care Document ---
Author Organization [facility] Address [address] [place] [address]- Care Team Providers Care Manufacturing Maintenance Technician Name Role Phone Joey Steele MD Primary Care Physician [facility]21 - 10/19/21 [facility] [address] [place] [address]- Attending Physician: Maximus Rosen MD Admitting Physician: [...] 23-valent vaccine 7 06/30/11 Given tetanus/diphtheria/pertussis, acel(Tdap) 12/9/10 Recorded diphtheria-tetanus toxoids (DT) 8 06/15/09 Given tetanus-diphtheria toxoids (Td) 12/23/08 Recorded 1Result Comment: in error 2Early/Late Reason: Med Not Available 3Result Comment: [10/30/2014] [id number] 4Admin Note: VIS GIVEN DATED: 04/29/12 5Admin Note: vis given 05/23/11 6Admin Note: VIS GIVEN-DATED 06/07/10 7Admin Note: vis give dated 08/03/09 8Admin Note: VIS GIVEN VIS DATE 05/08/06 Medications albuterol 0.083% inhalation solution 3 mL = 2.5 mg, Inhalation, Every 6 hours, # 360 mL, 11 Refills, Maintenance, 08/29/20 20:48:00 EST,Solution, [facility], 152, cm, 08/13/20 13:28:00 EDT, Height, 175.5, kg, 08/09/20 0:18:00 EDT, Dry Weight Start Date: 08/29/20 Stop Date: 08/24/21 Status: Ordered albuterol CFC free 90 mcg/inh inhalation aerosol 2, puffs, Inhalation, 4 times a day, PRN, FOR WHEEZING AND SHORTNESS OF BREATH, # 1 each, Refills 5, Tot. Refills 5, Maintenance, 08/24/21 20:48:00 EDT, Route to Pharmacy Electronically, [id number], [facility] #[id number]... Start Date: 08/24/21 Stop Date: 02/20/22 Status: Ordered duloxetine 60 mg oral enteric coated capsule 1 capsule = 60 mg, By Mouth, Daily, # 30 capsule, 10 Refills, Maintenance, 10/14/20 15:08:00 EST, EC Capsule, [facility] #[id number], Partial fill upon patient request if the prescription is fora schedule II opioid drug., 152, cm, 08/13/20 13:28... Start Date: 10/14/20 Status: Ordered furosemide 40 mg oral tablet 40 mg, 1, tablet, By Mouth, 2 times a day, # 60 tablet, Refills 10, Tot. Refills 10, Maintenance, 10/14/20 15:09:00 EST, Route to Pharmacy Electronically, [facility] #[id number], 152, cm, 08/13/20 13:28:00 EDT, Height, 175.5, kg, 08/09/20 0:18:00... Start Date: 10/14/20 Stop Date: 09/09/21 Status: Ordered hydrOXYzine hydrochloride 25 mg oral tablet 1 tablet = 25 mg, By Mouth, 4 times a day, PRN for anxiety, # 40 tablet, 1 Refills, Maintenance, 08/28/21 15:25:00 EDT, Tablet, [facility] #[id number], Partial fill upon patient request if the prescription is for a schedule II opioid drug., 152,... Start Date: 08/28/21 Stop Date: 10/27/21 Status: Ordered meloxicam 15 mg oral tablet 1 tablet = 15 mg, By Mouth, Daily, For knee and back pain, # 30 tablet, 2 Refills, Maintenance, 06/17/21 9:06:00 EDT, Tablet, [facility] #[id number], Partial fill upon patient request if the prescription is for a schedule II opioid drug., 152, cm... Start Date: 06/17/21 Status: Ordered metFORMIN 1000 mg oral tablet 1 tablet = 1,000 mg, By Mouth, 2 times a day, # 60 tablet, 11 Refills, Maintenance, 06/17/21 9:12:00 EDT, Tablet, [facility] #[id number], cancel previous metformin scripts, 152, cm, 06/17/21 [...] 10 Refills, Maintenance, 10/14/20 15:09:00 EST, Tablet, [facility] #[id number], 152, cm, 08/13/20 13:28:00 EDT, Height, 175.5, [...] 2 Refills, Maintenance, 11/02/20 10:14:00 EST, Capsule, [facility] #[id number], Partial fill upon patient request if the [...] Active Osteoarthritis(Confirmed) Active DMII(Confirmed) Active 1DrRyder Wade [phone], Norma. Dx 06/07/09 Social History Social History Type Response Smoking Status Former smoker, quit more than 30 days ago entered on: 06/11/19 Sex
--- OUTSIDE RECORDS SUMMARY | 2024-04-04 10:10 | XMS_ITS | Continuity of Care Document ---
Author Organization [facility] Address [address] [place] [address]- Care Team Providers Care Buckle Wire Inserter Name Role Phone Allyson ARMSTRONG Hazel Primary Care Physician [phone] [facility]17[facility]23 - 05/02/23 [facility] [address] [place] [address]- Attending Physician: Not on Staff, Attending MD [...] Reason: Med Not Available 2Result Comment: [10/30/2014] [id number] 3Admin Note: VIS GIVEN DATED: 04/29/12 4Admin Note: vis given 05/23/11 5Admin Note: VIS GIVEN-DATED 06/07/10 6Result Comment: in error 7Admin Note: vis give dated 08/03/09 8Admin Note: VIS GIVEN VIS DATE 05/08/06 Medications albuterol 0.083% inhalation solution 3 mL = 2.5 mg, Inhalation, Every 6 hours, # 360 mL, 11 Refills, Maintenance, 07/17/22 11:50:00 EDT,Solution, [facility] #[id number], 152, cm, 07/12/22 13:07:00 EDT, Height, 175.5, [...] 03/31/23 21:58:00 EDT, Route to Pharmacy Electronically, [facility] #[id number], Partial fill upon patient request if the [...] 01/07/25 17:08:00 EDT, Route to Pharmacy Electronically, [facility] #[id number], 149.86, cm, 02/09/23 15:52:00 EDT, Height, 172.3, kg, 11/26/22 5:4... Start Date: 01/07/25 Stop Date: 12/23/27 Status: Ordered furosemide 40 mg oral tablet 40 mg, 1, tablet, By Mouth, 2 times a day, for 90 days, # 180 tablet, Refills 11, Tot. Refills 11, Hard Stop 01/07/25 17:08:00 EDT, 01/23/22 17:08:00 EDT, Route to Pharmacy Electronically, [facility] #[id number], 152, cm, 06/17/21 8:41:00 EDT, He... Start Date: 01/23/22 Stop Date: 01/07/25 Status: Ordered gabapentin 100 mg oral capsule 100 mg, 1, capsule, By Mouth, 3 times a day, # 90 capsule, Refills 0, Tot. Refills 0, Maintenance, 12/14/22 17:21:00 EST, Route to Pharmacy Electronically, [facility] #[id number], Partial fill upon patient request if the prescription is for a kelly... Start Date: 12/14/22 Status: Ordered ibuprofen 800 mg oral tablet 800 mg, 1, tablet, By Mouth, 3 times a day, for pain with food or milk, # 30 tablet, Refills 0, Tot. Refills 0, Maintenance, 02/09/23 17:06:00 EDT, Route to Pharmacy Electronically, [facility] #[id number], Partial fill upon patient request if th... Start Date: 02/09/23 Status: Ordered metFORMIN 1000 mg oral tablet 1 tablet = 1,000 mg, By Mouth, 2 times a day, # 60 tablet, 11 Refills, Maintenance, 07/12/22 13:42:00 EDT, Tablet, [facility] #[id number], cancel previous metformin scripts, 152, cm, 07/12/22 13:07:00 EDT, Height, 175.5, kg, 08/09/20 0:18:00 EDT,... Start Date: 07/12/22 Status: Ordered multivitamin Multiple Vitamins oral capsule 1 capsule, By Mouth, Daily, # 30 capsule, 0 Refills, Maintenance, 03/23/23 7:59:00 EDT, Capsule, [facility] #[id number], Partial fill upon patient request if the [...] 11 Refills, Maintenance, 04/21/22 12:34:00 EDT, Powder, [facility] #[id number], Partial fill upon patient request if the prescription is for a schedule II opioid drug., 1 puffs... Start Date: 04/21/22 Stop Date: 04/16/23 Status: Ordered Trulicity Pen 0.75 mg/0.5 mL subcutaneous solution 0.5 mL = 0.75 mg, Subcutaneous Injection, Every week, rotate injection sites, # 2 mL, 3 Refills, Maintenance, 07/12/22 14:01:00 EDT, Solution, [facility] #[id number], Partial fill upon patient request if the prescription is for a schedule II opio... Start Date: 07/12/22 Status: Ordered Vitamin D3 2000 intl units oral capsule 1 capsule = 2,000 International_Units, By Mouth, Daily, # 60 capsule, 2 Refills, Maintenance, 07/17/22 16:56:00 EDT, Capsule, [facility] #[id number], Partial fill upon patient request if the [...] Confirmed Active DMII Confirmed Active 1[facility]yder Wade [phone], Norma. Dx 06/07/09 Social History Social History Type Response Smoking Status Former smoker, quit more than 30 days ago entered on: 06/11/19 Sex Patient Care team information Care Team Personnel Name: Jayna Sandhu RN Position: [facility] RN Member Role: Primary Care Nurse Name: Maty Valencia RN Position: [facility] RN Member Role: Primary Care Nurse Name: Roger Peña RN Position: [facility] RN Supv Member Role: Primary Care Nurse Name: Mihir Jackson RN Position: [facility] RN Member Role: Primary Care Nurse Name: Tessy Jaramillo RN Position: [facility] RN Member Role: Primary Care Nurse Name: Danya Roman RN Position: [facility] SN RN Member Role: Primary Care Nurse Name: Kem RNAshley Position: [facility] ED RN W/OE and Tasks Member Role: Primary Care Nurse Name: Becca Enrique RN Position: [facility] RN Member Role: Primary Care Nurse Name: Elma Caruso (INSTR) Position: [facility] RN Member Role: Primary Care Nurse Name: Amanda Huerta RN Position: [facility] RN Member Role: Primary Care Nurse Name: Yessica Stock Position: [facility] RN Member Role: Primary Care Nurse Name: Hazel Valadez DO Position: [facility] Resident Member Role: PCP Address: Address: [address] [place] [address] [place] [address]- Name: Radha Bravo RN Position: [facility] RN Member Role: Primary Care Nurse Name: Juli Calles RN Position: [facility] RN Member Role: Primary Care Nurse Care Team Related Persons Name: ZULEIMA MCKEON Address: [place] [address] Name: LUCITA TEMPLE Address: home Name: LARA TEMPLE Name: JUSTIN HINES
--- OUTSIDE RECORDS SUMMARY | 2024-04-04 10:10 | XMS_ITS | Continuity of Care Document ---
Author Organization [facility] Address [address] [place] [address]- Care Team Providers Care Transition Assistant Name Role Phone Joey Steele MD Primary Care Physician [facility]s): 06/16/21 - 07/16/21 [facility] [address] [place] [address]- Allergies, Adverse Reactions, Alerts Substance Reaction Severity [...] Reason: Med Not Available 3Result Comment: [10/30/2014] [id number] 4Admin Note: VIS GIVEN DATED: 04/29/12 5Admin Note: vis given 05/23/11 6Admin Note: VIS GIVEN-DATED 06/07/10 7Admin Note: vis give dated 08/03/09 8Admin Note: VIS GIVEN VIS DATE 05/08/06 Medications albuterol 0.083% inhalation solution 3 mL = 2.5 mg, Inhalation, Every 6 hours, # 360 mL, 11 Refills, Maintenance, 08/29/20 20:48:00 EST,Solution, [facility], 152, cm, 08/13/20 13:28:00 EDT, Height, 175.5, kg, 08/09/20 0:18:00 EDT, Dry Weight Start Date: 08/29/20 Stop Date: 08/24/21 Status: Ordered albuterol CFC free 90 mcg/inh inhalation aerosol 2, puffs, Inhalation, 4 times a day, PRN, FOR WHEEZING AND SHORTNESS OF BREATH, # 1 each, Refills 5, Tot. Refills 5, Maintenance, 08/24/21 20:48:00 EDT, Route to Pharmacy Electronically, [id number], [facility] #[id number]... Start Date: 08/24/21 Stop Date: 02/20/22 Status: Ordered duloxetine 60 mg oral enteric coated capsule 1 capsule = 60 mg, By Mouth, Daily, # 30 capsule, 10 Refills, Maintenance, 10/14/20 15:08:00 EST, EC Capsule, [facility] #[id number], Partial fill upon patient request if the prescription is fora schedule II opioid drug., 152, cm, 08/13/20 13:28... Start Date: 10/14/20 Status: Ordered furosemide 40 mg oral tablet 40 mg, 1, tablet, By Mouth, 2 times a day, # 60 tablet, Refills 10, Tot. Refills 10, Maintenance, 10/14/20 15:09:00 EST, Route to Pharmacy Electronically, [facility] #[id number], 152, cm, 08/13/20 13:28:00 EDT, Height, 175.5, kg, 08/09/20 0:18:00... Start Date: 10/14/20 Stop Date: 09/09/21 Status: Ordered meloxicam 15 mg oral tablet 1 tablet = 15 mg, By Mouth, Daily, For knee and back pain, # 30 tablet, 2 Refills, Maintenance, 06/17/21 9:06:00 EDT, Tablet, [facility] #[id number], Partial fill upon patient request if the prescription is for a schedule II opioid drug., 152, cm... Start Date: 06/17/21 Status: Ordered metFORMIN 1000 mg oral tablet 1 tablet = 1,000 mg, By Mouth, 2 times a day, # 60 tablet, 11 Refills, Maintenance, 06/17/21 9:12:00 EDT, Tablet, [facility] #[id number], cancel previous metformin scripts, 152, cm, 06/17/21 [...] 10 Refills, Maintenance, 10/14/20 15:09:00 EST, Tablet, [facility] #[id number], 152, cm, 08/13/20 13:28:00 EDT, Height, 175.5, [...] 2 Refills, Maintenance, 11/02/20 10:14:00 EST, Capsule, [facility] #[id number], Partial fill upon patient request if the [...] Active Osteoarthritis(Confirmed) Active DMII(Confirmed) Active 1[facility]yder Wade [phone], Norma. Dx 06/07/09 Social History Social History Type Response Smoking Status Former smoker, quit more than 30 days ago entered on: 06/11/19 Sex
--- OUTSIDE RECORDS SUMMARY | 2024-04-04 10:11 | XMS_ITS | Continuity of Care Document ---
Author Organization [facility] Address [address] [place] [address]- Care Team Providers Care Weather Forcaster Name Role Phone Hazel Valadez DO Primary Care Physician [facility]s): 05/16/22 - 07/20/22 [facility] [address] [place] [address]- Attending Physician: Not on Staff, Attending MD [...] Reason: Med Not Available 3Result Comment: [10/30/2014] [id number] 4Admin Note: VIS GIVEN DATED: 04/29/12 5Admin Note: vis given 05/23/11 6Admin Note: VIS GIVEN-DATED 06/07/10 7Admin Note: vis give dated 08/03/09 8Admin Note: VIS GIVEN VIS DATE 05/08/06 Medications albuterol 0.083% inhalation solution 3 mL = 2.5 mg, Inhalation, Every 6 hours, # 360 mL, 11 Refills, Maintenance, 07/17/22 11:50:00 EDT,Solution, [facility] #[id number], 152, cm, 07/12/22 13:07:00 EDT, Height, 175.5, kg, 08/09/20 0:18:00 EDT, Dry Weight Start Date: 07/17/22 Stop Date: 07/12/23 Status: Ordered albuterol CFC free 90 mcg/inh inhalation aerosol 2, puffs, Inhalation, 4 times a day, PRN, FOR WHEEZING AND SHORTNESS OF BREATH, # 1 each, Refills 5, Tot. Refills 5, Maintenance, 08/24/21 20:48:00 EDT, Route to Pharmacy Electronically, [id number], [facility] #[id number]... Start Date: 08/24/21 Stop Date: 02/20/22 [...] 01/23/22 17:08:00 EDT, Route to Pharmacy Electronically, [facility] #[id number], 152, cm, 06/17/21 8:41:00 EDT, Height, 175.5, kg, 08/09/20 0:18:00... Start Date: 01/23/22 Stop Date: 01/07/25 Status: Ordered gabapentin 100 mg oral capsule 100 mg, 1, capsule, By Mouth, 3 times a day, # 90 capsule, Refills 0, Tot. Refills 0, Maintenance, 07/12/22 14:00:00 EDT, Route to Pharmacy Electronically, [facility] #[id number], Partial fill upon patient request if the prescription is for a kelly... Start Date: 07/12/22 Status: Ordered hydrOXYzine hydrochloride 25 mg oral tablet 1 tablet = 25 mg, By Mouth, 4 times a day, PRN for anxiety, # 40 tablet, 1 Refills, Maintenance, 07/12/22 13:42:00 EDT, Tablet, [facility] #[id number], Partial fill upon patient request if the prescription is for a schedule II opioid drug., 152,... Start Date: 07/12/22 Stop Date: 09/10/22 Status: Ordered lisinopril 5 mg oral tablet 5 mg, 1, tablet, By Mouth, Daily, # 30 tablet, Refills 2, Tot. Refills 2, Maintenance, 07/17/22 17:03:00 EDT, Route to Pharmacy Electronically, [facility] #[id number], Please disregard 10mg dosing, 152, cm, 07/12/22 13:07:00 EDT, Height, 175.5, k... Start Date: 07/17/22 Status: Ordered metFORMIN 1000 mg oral tablet 1 tablet = 1,000 mg, By Mouth, 2 times a day, # 60 tablet, 11 Refills, Maintenance, 07/12/22 13:42:00 EDT, Tablet, [facility] #[id number], cancel previous metformin scripts, 152, cm, 07/12/22 [...] 10 Refills, Maintenance, 10/14/20 15:09:00 EST, Tablet, [facility] #[id number], 152, cm, 08/13/20 13:28:00 EDT, Height, 175.5, [...] 11 Refills, Maintenance, 04/21/22 12:34:00 EDT, Powder, [facility] #[id number], Partial fill upon patient request if the prescription is for a schedule II opioid drug., 1 puffs... Start Date: 04/21/22 Stop Date: 04/16/23 Status: Ordered Trulicity Pen 0.75 mg/0.5 mL subcutaneous solution 0.5 mL = 0.75 mg, Subcutaneous Injection, Every week, rotate injection sites, # 2 mL, 3 Refills, Maintenance, 07/12/22 14:01:00 EDT, Solution, [facility] #[id number], Partial fill upon patient request if the prescription is for a schedule II opio... Start Date: 07/12/22 Status: Ordered Vitamin D3 2000 intl units oral capsule 1 capsule = 2,000 International_Units, By Mouth, Daily, # 60 capsule, 2 Refills, Maintenance, 07/17/22 16:56:00 EDT, Capsule, [facility] #[id number], Partial fill upon patient request if the [...] Severe obesity(Confirmed) Active DMII(Confirmed) Active 1[facility] Wade [phone], Norma. Dx 06/07/09 Social History Social History Type Response Smoking Status Former smoker, quit more than 30 days ago entered on: 06/11/19 Sex Care Team Personnel Name: Hazel Valadez DO Address: [address] [place] [address]
--- OUTSIDE RECORDS SUMMARY | 2024-04-04 10:11 | XMS_ITS | Continuity of Care Document ---
Author Organization [facility] Address [address] [place] [address]- Care Team Providers Care Assembly Press Operator Name Role Phone Allyson ARMSTRONG Hazel Primary Care Physician Encounter [facility] R [id number] Date(s): 07/27/23 - 08/27/23 [facility] [address] [place] [id number] Attending Physician: Maximus Rosen MD Admitting Physician: [...] Reason: Med Not Available 2Result Comment: [10/30/2014] [id number] 3Admin Note: VIS GIVEN DATED: 04/29/12 4Admin Note: vis given 05/23/11 5Admin Note: VIS GIVEN-DATED 06/07/10 6Admin Note: vis give dated 08/03/09 7Admin Note: VIS GIVEN VIS DATE 05/08/06 Medications albuterol 0.083% inhalation solution 3 mL = 2.5 mg, Inhalation, Every 6 hours, # 360 mL, 11 Refills, Maintenance, 07/17/22 11:50:00 EDT,Solution, [facility] #[id number], 152, cm, 07/12/22 13:07:00 EDT, Height, 175.5, [...] 03/31/23 21:58:00 EDT, Route to Pharmacy Electronically, [facility] #[id number], Partial fill upon patient request if the [...] 01/07/25 17:08:00 EDT, Route to Pharmacy Electronically, [facility] #[id number], 149.86, cm, 02/09/23 15:52:00 EDT, Height, 172.3, kg, 11/26/22 5:4... Start Date: 01/07/25 Stop Date: 12/23/27 Status: Ordered furosemide 40 mg oral tablet 40 mg, 1, tablet, By Mouth, 2 times a day, for 90 days, # 180 tablet, Refills 11, Tot. Refills 11, Hard Stop 01/07/25 17:08:00 EDT, 01/23/22 17:08:00 EDT, Route to Pharmacy Electronically, [facility] #[id number], 152, cm, 06/17/21 8:41:00 EDT, He... Start Date: 01/23/22 Stop Date: 01/07/25 Status: Ordered gabapentin 100 mg oral capsule 100 mg, 1, capsule, By Mouth, 3 times a day, # 90 capsule, Refills 0, Tot. Refills 0, Maintenance, 12/14/22 17:21:00 EST, Route to Pharmacy Electronically, [facility] #[id number], Partial fill upon patient request if the prescription is for a kelly... Start Date: 12/14/22 Status: Ordered ibuprofen 800 mg oral tablet 800 mg, 1, tablet, By Mouth, 3 times a day, for pain with food or milk, # 30 tablet, Refills 0, Tot. Refills 0, Maintenance, 02/09/23 17:06:00 EDT, Route to Pharmacy Electronically, [facility] #[id number], Partial fill upon patient request if th... Start Date: 02/09/23 Status: Ordered metFORMIN 1000 mg oral tablet 1 tablet = 1,000 mg, By Mouth, 2 times a day, # 60 tablet, 11 Refills, Maintenance, 07/12/22 13:42:00 EDT, Tablet, [facility] #[id number], cancel previous metformin scripts, 152, cm, 07/12/22 13:07:00 EDT, Height, 175.5, kg, 08/09/20 0:18:00 EDT,... Start Date: 07/12/22 Status: Ordered multivitamin Multiple Vitamins oral capsule 1 capsule, By Mouth, Daily, # 30 capsule, 0 Refills, Maintenance, 03/23/23 7:59:00 EDT, Capsule, [facility] #[id number], Partial fill upon patient request if the [...] 11 Refills, Maintenance, 04/21/22 12:34:00 EDT, Powder, [facility] #[id number], Partial fill upon patient request if the prescription is for a schedule II opioid drug., 1 puffs... Start Date: 04/21/22 Stop Date: 04/16/23 Status: Ordered Vitamin D3 2000 intl units oral capsule 1 capsule = 2,000 International_Units, By Mouth, Daily, # 60 capsule, 2 Refills, Maintenance, 07/17/22 16:56:00 EDT, Capsule, [facility] #[id number], Partial fill upon patient request if the [...] Confirmed Active DMII Confirmed Active 1[facility] Wade [phone], Norma. Dx 06/07/09 Social History Social History [...] Care Nurse Name: Roger Peña RN Position: S RN Supv Member Role: Primary Care Nurse Name: Mihir Jackson RN Position: S RN Member Role: Primary Care Nurse Name: Danya Roman RN Position: [facility] SN RN Member Role: Primary Care Nurse Name: Ashley Brownlee RN Position: [facility] ED RN W/OE and Tasks Member Role: Primary Care Nurse Name: Zuly THOMSON) Elma Position: [facility] RN Member Role: Primary Care Nurse Name: Amanda Huerta RN Position: [facility] RN Member Role: Primary Care Nurse Name: Yessica Stock Position: [facility] RN Member Role: Primary Care Nurse Name: Hazel Valadez DO Position: [facility] Resident Member Role: PCP Address: Address: [address] [place] [address] [place] [address]- Name: Juli Calles RN Position: [facility] RN Member Role: Primary Care Nurse Care Team Related Persons Name: LINDA ZULEIMA Address: [place] [address] Name: LUCITA TEMPLE Address: home Name: LARA TEMPLE Name: JUSTIN HINES
--- OUTSIDE RECORDS SUMMARY | 2024-04-04 10:11 | XMS_ITS | Continuity of Care Document ---
Author Organization [facility] Address [address] [place] [address]- Care Team Providers Care Hemodialysis Patient Care Specialist Name Role Phone Joey Steele MD Primary Care Physician Encounter [facility] Date(s): 09/19/21 - 10/26/21 [facility] [address] [place] [address]- Attending Physician: Not on Staff, Attending MD [...] Reason: Med Not Available 3Result Comment: [10/30/2014] [id number] Note: VIS GIVEN DATED: 04/29/12 5Admin Note: vis given 05/23/11 6Admin Note: VIS GIVEN-DATED 06/07/10 7Admin Note: vis give dated 08/03/09 8Admin Note: VIS GIVEN VIS DATE 05/08/06 Medications albuterol 0.083% inhalation solution 3 mL = 2.5 mg, Inhalation, Every 6 hours, # 360 mL, 11 Refills, Maintenance, 08/29/20 20:48:00 EST,Solution, [facility], 152, cm, 08/13/20 13:28:00 EDT, Height, 175.5, kg, 08/09/20 0:18:00 EDT, Dry Weight Start Date: 08/29/20 Stop Date: 08/24/21 Status: Ordered albuterol CFC free 90 mcg/inh inhalation aerosol 2, puffs, Inhalation, 4 times a day, PRN, FOR WHEEZING AND SHORTNESS OF BREATH, # 1 each, Refills 5, Tot. Refills 5, Maintenance, 08/24/21 20:48:00 EDT, Route to Pharmacy Electronically, [id number], [id number]... Start Date: 08/24/21 Stop Date: 02/20/22 Status: Ordered duloxetine 60 mg oral enteric coated capsule 1 capsule = 60 mg, By Mouth, Daily, # 30 capsule, 10 Refills, Maintenance, 10/14/20 15:08:00 EST, EC Capsule, [facility] #[id number], Partial fill upon patient request if the prescription is fora schedule II opioid drug., 152, cm, 08/13/20 13:28... Start Date: 10/14/20 Status: Ordered furosemide 40 mg oral tablet 40 mg, 1, tablet, By Mouth, 2 times a day, # 60 tablet, Refills 10, Tot. Refills 10, Maintenance, 10/14/20 15:09:00 EST, Route to Pharmacy Electronically, [facility] #[id number], 152, cm, 08/13/20 13:28:00 EDT, Height, 175.5, kg, 08/09/20 0:18:00... Start Date: 10/14/20 Stop Date: 09/09/21 Status: Ordered hydrOXYzine hydrochloride 25 mg oral tablet 1 tablet = 25 mg, By Mouth, 4 times a day, PRN for anxiety, # 40 tablet, 1 Refills, Maintenance, 08/28/21 15:25:00 EDT, Tablet, [facility] #[id number], Partial fill upon patient request if the prescription is for a schedule II opioid drug., 152,... Start Date: 08/28/21 Stop Date: 10/27/21 Status: Ordered meloxicam 15 mg oral tablet 1 tablet = 15 mg, By Mouth, Daily, For knee and back pain, # 30 tablet, 2 Refills, Maintenance, 06/17/21 9:06:00 EDT, Tablet, [email or web address] #[id number], Partial fill upon patient request if the prescription is for a schedule II opioid drug., 152, cm... Start Date: 06/17/21 Status: Ordered metFORMIN 1000 mg oral tablet 1 tablet = 1,000 mg, By Mouth, 2 times a day, # 60 tablet, 11 Refills, Maintenance, 06/17/21 9:12:00 EDT, Tablet, [email or web address] #[id number], cancel previous metformin scripts, 152, cm, 06/17/21 [...] 10 Refills, Maintenance, 10/14/20 15:09:00 EST, Tablet, [facility] #[id number], 152, cm, 08/13/20 13:28:00 EDT, Height, 175.5, [...] 2 Refills, Maintenance, 11/02/20 10:14:00 EST, Capsule, [facility] #[id number], Partial fill upon patient request if the [...] Active Osteoarthritis(Confirmed) Active DMII(Confirmed) Active 1DrRyder Wade [phone], Norma. Dx 06/07/09 Social History Social History Type Response Smoking Status Former smoker, quit more than 30 days ago entered on: 06/11/19 Sex
--- OUTSIDE RECORDS SUMMARY | 2024-04-04 10:11 | XMS_ITS | Continuity of Care Document ---
Author Organization [facility] ter Address [address] [place] [id number]- Care Team Providers Care Certified Professional Coder Name Role Phone Hazel Valadez DO Primary Care Physician Encounter [facility] Date(s): 11/26/22 - 12/01/[address] [id number] Discharge Disposition: A-Transfer VNA/Home Health Attending Physician: Ermias MILLER, Pavel Brown Admitting Physician: Kong Trejo MD, I Referring Physician: Not on Staff, Referring MD [...] Reason: Med Not Available 2Result Comment: [10/30/2014] [id number] 3Admin Note: VIS GIVEN DATED: 04/29/12 4Admin Note: vis given 05/23/11 5Admin Note: VIS GIVEN-DATED 06/07/10 6Result Comment: in error 7Admin Note: vis give dated 08/03/09 8Admin Note: VIS GIVEN VIS DATE 05/08/06 Medications albuterol 0.083% inhalation solution 3 mL = 2.5 mg, Inhalation, Every 6 hours, # 360 mL, 11 Refills, Maintenance, 07/17/22 11:50:00 EDT,Solution, [facility] #[id number], 152, cm, 07/12/22 13:07:00 EDT, Height, 175.5, kg, 08/09/20 0:18:00 EDT, Dry Weight Start Date: 07/17/22 Stop Date: 07/12/23 Status: Ordered amoxicillin-clavulanate 875 mg-125 mg oral tablet 1 tablet, By Mouth, 2 times a day, for 5 days, # 10 tablet, 0 Refills, Acute 12/06/22 11:43:00 EST,12/01/22 11:43:00 EST, Tablet, [facility], Partial fill upon patient request if the prescription is for a schedule II opioid drug., 149.8... Start Date: 12/01/22 Stop Date: 12/06/22 Status: Ordered bariatric walker bariatric walker, See [...] Supply Start Date: 07/18/22 Status: Ordered Freestyle gregg 2 sensors 14 day Freestyle gregg 2 sensors 14 day, See Instructions, # 2 each, Refills 11, Tot. Refills 11, Maintenance, check blood glucose 3 times daily DX: DM type 2, E11.9, 07/12/22 16:40:00 EDT, Supply, 152, cm,07/12/22 13:07:00 EDT, Height, 175.5, kg, ... Start Date: 07/12/22 Status: Ordered Freestyle Gregg Monitor See Instructions, # 1 each, Maintenance, use as directed for Type 2 Diabetes Mellitus, 07/12/22 16:40:00 EDT, freestyle gregg 2, Supply, 152, cm, 07/12/22 13:07:00 EDT, [...] 01/23/22 17:08:00 EDT, Route to Pharmacy Electronically, [facility] #[id number], 152, cm, 06/17/21 8:41:00 EDT, Height, 175.5, kg, 08/09/20 0:18:00... Start Date: 01/23/22 Stop Date: 01/07/25 Status: Ordered gabapentin 100 mg oral capsule 100 mg, Capsule, By Mouth, 12/01/22 15:00:00 EST Start Date: 12/01/22 Stop Date: 12/01/22 Status: Completed gabapentin 100 mg oral capsule 100 mg, 1, capsule, By Mouth, 3 times a day, # 90 capsule, Refills 0, Tot. Refills 0, Maintenance, 07/12/22 14:00:00 EDT, Route to Pharmacy Electronically, [facility] #[id number], Partial fill upon patient request if the prescription is for a kelly... Start Date: 07/12/22 Status: Ordered metFORMIN 1000 mg oral tablet 1 tablet = 1,000 mg, By Mouth, 2 times a day, # 60 tablet, 11 Refills, Maintenance, 07/12/22 13:42:00 EDT, Tablet, [facility] #[id number], cancel previous metformin scripts, 152, cm, 07/12/22 13:07:00 EDT, Height, 175.5, kg, 08/09/20 0:18:00 EDT,... Start Date: 07/12/22 Status: Ordered oxyCODONE 5 mg oral tablet 5 mg, 1, tablet, By Mouth, Every 6 hours, PRN, for 3 days, # 12 tablet, Refills 0, Tot. Refills 0, Acute 12/04/22 11:43:00 EST, Pain , Severe, 12/01/22 11:43:00 EST, Route to Pharmacy Electronically,[facility], Partial fill upon patient... Start Date: 12/01/22 Stop Date: 12/04/22 Status: Ordered oxyCODONE 5 mg oral tablet 5 mg, Tablet, By Mouth, Every 4 hours, PRN for Pain , Severe, Routine, 11/30/22 7:57:00 EST Start Date: 11/30/22 Stop Date: 12/02/22 Status: Discontinued Oxygen Supplies See Instructions, # 1 application, [...] 11 Refills, Maintenance, 04/21/22 12:34:00 EDT, Powder, [facility] #[id number], Partial fill upon patient request if the prescription is for a schedule II opioid drug., 1 puffs... Start Date: 04/21/22 Stop Date: 04/16/23 Status: Ordered Trulicity Pen 0.75 mg/0.5 mL subcutaneous solution 0.5 mL = 0.75 mg, Subcutaneous Injection, Every week, rotate injection sites, # 2 mL, 3 Refills, Maintenance, 07/12/22 14:01:00 EDT, Solution, [facility] #[id number], Partial fill upon patient request if the prescription is for a schedule II opio... Start Date: 07/12/22 Status: Ordered Vitamin D3 2000 intl units oral capsule 1 capsule = 2,000 International_Units, By Mouth, Daily, # 60 capsule, 2 Refills, Maintenance, 07/17/22 16:56:00 EDT, Capsule, [facility] #[id number], Partial fill upon patient request if the [...] Severe obesity Confirmed Active DMII Confirmed Active Cy Wade [phone], Norma. Dx 06/07/09 Results Orders for Microbiology Reports Name Date Anaerobic Culture (ANAEROBIC CULTURE) Fungal Culture, Nonrespiratory (FUNGAL C ULT,NON-RESPIRATORY) 11/26/22 Wound Deep Culture w/ Gram Smear (DEEP W OUND CULTURE) 11/26/22 Blood Culture 11/25/22 Blood Culture #2 11/25/22 Microbiology Reports TEST:Anaerobic Culture STATUS:Auth (Verified) BODY SITE: SOURCE:ABSCES COLLECTED DATE/TIME:11/26/22 1:15 AM Anaerobic Culture SPECIMEN DESCRIPTION : ABSCESS RETRO PHARYNGEAL SPACE SPECIAL REQUESTS : NONE CULTURE : NO ANAEROBES ISOLATED REPORT STATUS : FINAL 11/28/2022 TEST:Deep Wound Culture STATUS:Auth (Verified) BODY SITE: SOURCE:ABSCES COLLECTED DATE/TIME:11/26/22 1:15 AM Deep Wound Culture SPECIMEN DESCRIPTION : ABSCESS PERITONSILLAR SPECIAL REQUESTS : ESWAB REC'D RETRO PHARYNGEAL SPACE GRAM STAIN : 3+ POLYMORPHONUCLEAR LEUKOCYTES 4+ RBC'S 2+ GRAM POSITIVE RODS 2+ GRAM POSITIVE COCCI CULTURE : 3+ STREPTOCOCCI, GROUP F BETA HEMOLYTIC. SUSCEPTIBILITY TESTING NOT ROUTINELY PERFORMED ON THIS ISOLATE. No other significant microorganisms isolated. Please consult the laboratory ([phone]) within 7 days if more definitive studies are clinically indicated. REPORT STATUS : FINAL 11/28/2022 TEST:Fungal Culture, Non-Respiratory STATUS:Unauthenticated BODY SITE: SOURCE:ABSCES COLLECTED DATE/TIME:11/26/22 1:15 AM Fungal Culture, Non-Respiratory SPECIMEN DESCRIPTION : ABSCESS RETRO PHARYNGEAL SPACE SPECIAL REQUESTS : NONE DIRECT EXAM : NO FUNGAL ELEMENTS OBSERVED CULTURE : NO FUNGI ISOLATED AFTER 4 DAYS REPORT STATUS : PRELIMINARY REPORT TEST:Blood Culture STATUS:Auth (Verified) BODY SITE: SOURCE:Blood COLLECTED DATE/TIME:11/25/22 10:55 PM Blood Culture SPECIMEN DESCRIPTION : BLOOD NO SITE SPECIAL REQUESTS : NONE CULTURE : NO GROWTH 5 DAYS. REPORT STATUS : FINAL 12/01/2022 TEST:Blood Culture, Second Order STATUS:Auth (Verified) BODY SITE: SOURCE:Blood COLLECTED DATE/TIME:11/25/22 10:42 PM Blood Culture, Second Order SPECIMEN DESCRIPTION : BLOOD NO SITE SPECIAL REQUESTS : NONE CULTURE : NO GROWTH 5 DAYS. REPORT STATUS : FINAL 12/01/2022 Radiology Reports * Exam Date Time Procedure Performing Provider Status 11/27/22 5:37 AM Chest Portable Stacia Vargas; Auth (Ve rified) Notes: (Chest Portable) Reason For Exam: CHF RESULT: Chest Portable Chest Portable Reason: CHF; Clinical Question(s): Asthma COMPARISON: Multiple prior examinations the most recent dated 11/26/2022 at 8:17 AM. FINDINGS: Slightly limited examination due to the patient's body habitus. LINES AND TUBES: Endotracheal tube and enteric tube remain in place unchanged. LUNGS AND PLEURA: There is probably mild asymmetric pulmonary vascular prominence on the right side with probable mild interstitial edema. There is minimal fissural fluid involving the right minor fissure. Unchanged or slightly improving. improving. Probable small left pleural effusion. No pneumothorax. HEART, MEDIASTINUM AND MARY: Mild prominence of the cardiomediastinal silhouette unchanged. BONES AND SOFT TISSUES: No acute abnormality. IMPRESSION: Mild asymmetric prominence of the pulmonary vascularity on the right side with probable minimal interstitial edema and fissural fluid essentially unchanged. WSN: [id number] Ordering Physician: William Kumar Dictated By: Nicola Prakash MD, V Dictated Date/Time: 11/27/22 9:49 am Reviewed By: Nicola Prakash MD, V Signed By: Nicola Prakash MD, V Signed Date/Time: 11/27/22 9:49 am Transcribed By: JACOB Transcribed Date/Time: 11/27/22 9:46 am * Exam Date Time Procedure Performing Provider Status 11/26/22 8:39 AM Chest Portable Hallie Chance; Savannah (Verified) Notes: (Chest Portable) Reason For Exam: Shortness of Breath RESULT: Chest Portable Chest Portable Reason: Shortness of Breath; Clinical Question(s): Pneumonia COMPARISON: 11/26/2022, 11/25/2022 FINDINGS: LINES AND TUBES: Enteric tube courses into the stomach and off the plane of the image inferiorly. Endotracheal tube tip appears to be 4.6 cm above the sohail. With evaluation limited secondary to technique. LUNGS AND PLEURA: The examination is overpenetrated, limiting evaluation of the lungs. Grossly stable right midlung linear opacity. Endotracheal tube is not well seen HEART, MEDIASTINUM AND MARY: Stable enlargement of the cardiac silhouette. BONES AND SOFT TISSUES: No acute abnormality. IMPRESSION: Enteric tube courses into the stomach, tip not included on this exam. Due to overpenetration evaluation of lungs is limited. WSN: [id number] Ordering Physician: William Kumar Dictated By: Josie Salmeron MD Dictated Date/Time: 11/26/22 2:20 pm Reviewed By: Josie Salmeron MD Signed By: Josie Salmeron MD Signed Date/Time: 11/26/22 2:20 pm Transcribed By: JACOB Transcribed Date/Time: 11/26/22 2:17 pm * Exam Date Time Procedure Performing Provider Status 11/26/22 2:55 AM Chest Portable Gonzalez-GravesCamila mtzl y; Auth (Verified) Notes: (Chest Portable) Reason For Exam: newly intubated;Tube Placement RESULT: Chest Portable Chest Portable Reason: Tube Placement; newly intubated COMPARISON: 11/25/2022, 09/05/2022 FINDINGS: LINES AND TUBES: Endotracheal tube tip is 3.8 cm above the sohail. Enteric tube courses below the hemidiaphragm, into the stomach and off of the image inferiorly. LUNGS AND PLEURA: The lungs are hypoinflated with bronchovascular crowding. New linear opacity in the right midlung may represent atelectasis versus small amount of effusion in the minor fissure. No pneumothorax. HEART, MEDIASTINUM AND MARY: Heart is normal in size. Normal mediastinal and hilar contour. BONES AND SOFT TISSUES: No acute abnormality. IMPRESSION: Satisfactory tube and line position. Right midlung atelectasis versus trace fluid in the minor fissure. WSN: [id number] Ordering Physician: Ugo Nolen Dictated By: Josie Salmeron MD Dictated Date/Time: 11/26/22 9:21 am Reviewed By: Josie Salmeron MD Signed By: Josie Salmeron MD Signed Date/Time: 11/26/22 9:21 am Transcribed By: JACOB Transcribed Date/Time: 11/26/22 9:14 am * Exam Date Time Procedure Performing Provider Status 11/26/22 12:05 AM Chest Portable Gonzalez-Camila Graves ly; Auth (Verified) Notes: (Chest Portable) Reason For Exam: dyspnea;Other: RESULT: Chest Portable Chest Portable Reason: Other:; dyspnea; Clinical Question(s): Pneumonia COMPARISON: 09/05/2022 FINDINGS: LINES AND TUBES: None. LUNGS AND PLEURA: Examination is limited by patient body habitus. Clear lungs. Normal pulmonary vascularity. No pleural effusion. No pneumothorax. HEART, MEDIASTINUM AND MARY: Heart is normal in size. Normal mediastinal and hilar contour. BONES AND SOFT TISSUES: No acute abnormality. IMPRESSION: No acute abnormality. WSN: [id number] Ordering Physician: Yesenia Nelson Dictated By: Josie Salmeron MD Dictated Date/Time: 11/26/22 8:15 am Reviewed By: Josie Salmeron MD Signed By: Jsoie Salmeron MD Signed Date/Time: 11/26/22 8:15 am Transcribed By: JACOB Transcribed Date/Time: 11/26/22 8:14 am * Exam Date Time Procedure Performing Provider Status 11/25/22 11:[address] Soft Tissue Neck W/ Contrast Josie Gautam; Modified Notes: (CT Soft Tissue Neck W/ Contrast) Reason For Exam: muffled voice, neck pain;Hoarseness RESULT: CT Soft Tissue Neck W/ Contrast CT Soft Tissue Neck W/ Contrast INDICATION/CLINICAL QUESTION: Reason: Hoarseness; muffled voice, neck pain; Clinical Question(s): Abscess / Abscess. TECHNIQUE: Spiral CT neck with IV contrast formatted in 3 planes. 100 cc of Omnipaque 300 was administered intravenously. Weight-based protocol using automatic tube modulation was used to optimize exposure parameters. CTDIvol Body: 16.70 mGy, DLP Body: 541 mGy*cm. COMPARISON: 06/11/2019 FINDINGS: There is prominent adenoidal enlargement narrowing the nasopharynx. There is also thickening of thesoft palate as well as prominence of the lymphoid tissue in the posterior oropharynx. Uvula appearsenlarged. There is marked narrowing of the oropharynx. I do not see evidence of discrete abscess. There is enlargement of multiple lymph nodes involving both left and right neck most likely reactive.I do not see evidence of bony abnormality. IMPRESSION: Marked narrowing of the nasopharynx, oropharynx, and hypopharyngeal region related to prominent lymphoid tissue as well as enlargement of the soft palate and uvula. No discrete abscess identified. WSN: [id number] Ordering Physician: Yesenia Nelson Dictated By: Jonathan Garcia MD Dictated Date/Time: 11/25/22 11:33 p Reviewed By: Jonathan Garcia MD Signed By: Jonathan Garcia MD Signed Date/Time: 11/25/22 11:33 pm Transcribed By: JACOB Transcribed Date/Time: 11/25/22 11:28 pm ADDENDUM: CT Soft Tissue Neck W/ Contrast There is also significant prominence of the retropharyngeal soft tissues with a hypodense area in the prevertebral area at the C2-C3 level in particular that could represent early abscess. Prevertebral soft tissues measure 2.4 cm in maximal dimension. Hypodense area raising possibility of early abscess may measure as large as 1 cm maximal thickness. On the previous examination from 06/11/2019, there is significant prominence of the prevertebral soft tissues as well, though I believe that the thickness has increased compared to that time. WSN: [id number] Ordering Physician: Yesenia Nelson Dictated By: Jonathan Garcia MD Dictated Date/Time: 11/25/22 11:49 p Reviewed By: Jonathan Garcia MD Signed By: Jonathan Garcia MD Signed Date/Time: 11/25/22 11:49 pm Transcribed By: JACOB Transcribed Date/Time: 11/25/22 11:45 pm * Exam Date Time Procedure Performing Provider Status 11/25/22 11:[address] Head/Brain W/O Contrast Josie Cotter; Savannah (Verified) Notes: (CT Head/Brain W/O Contrast) Reason For Exam: neck pain, muffled voice, headache;Headache(s) RESULT: CT Head/Brain W/O Contrast CT Head/Brain W/O Contrast INDICATION: Reason: Headache(s); neck pain, muffled voice, headache; Clinical Question(s): Hematoma TECHNIQUE: Noncontrast head CT using axial technique and reconstructed in axial and coronal planes.Iterative reconstruction techniques are used to optimize dose and image quality. CTDIvol Head: 47.90 mGy, DLP Head: 773 mGy*cm. COMPARISON: 08/18/2016 FINDINGS: Study limited by patient motion artifact. Boiler Operator Helper view findings, lines and tubes: None. BRAIN AND EXTRA-AXIAL SPACES: No parenchymal hemorrhage, midline shift, or mass effect. Maldonado-white matter differentiation is wellpreserved. No acute infarct. No paranasal sinus air-fluid level. Postsurgical changes from right partial mastoidectomy. No subarachnoid hemorrhage. No subdural or epidural collection. CALVARIUM, SKULL BASE, AND SOFT TISSUES: No fractures or suspicious bony lesions. The paranasal sinuses and mastoid air cells are clear. Visualized orbits and globes are intact. The extracranial soft tissues are unremarkable. IMPRESSION: No acute intracranial pathology. WSN: [id number] Ordering Physician: Yesenia Nelson Dictated By: Steve Delarosa MD Dictated Date/Time: 11/25/22 11:20 p Reviewed By: Steve Delarosa MD Signed By: Steve Delarosa MD Signed Date/Time: 11/25/22 11:20 pm Transcribed By: JACOB Transcribed Date/Time: 11/25/22 11:17 pm Vital Signs Most recent to oldest [Reference Range]: 1 12 01 Height 149.86 cm (12/01/22 3:04 PM) 149.86 cm (12/01/22 12:15 PM) 149.86 cm (12/01/22 6:52 AM) Weight 170 kg (11/30/22 6:00 PM) 171.5 kg (11/29/22 9:29 PM) 172.3 kg (11/26/22 3:04 AM) Oxygen Saturation [94-100 %] 97 % (12/01/22 3:04 PM) 97 % (12/01/22 12:15 PM) 95 % (12/01/22 6:52 AM) Pulse Rate [55-90 bpm] 91 bpm *H* (12/01/22 3:04 PM) 83 bpm (12/01/22 12:15 PM) 80 bpm (12/01/22 6:52 AM) Body Mass Index [18.5-24.99 kg/m2] 76.72 kg/m2 *>HHI* (11/26/22 3:04 AM) Blood Pressure [90-138/55-84 mm Hg] 108/74mm Hg (12/01/22 3:04 PM) 121/76mm Hg (12/01/22 12:15 PM) 123/73mm Hg (12/01/22 6:52 AM) Respiratory Rate [16-30 br/min] 18 br/min (12/01/22 3:38 PM) 18 br/min (12/01/22 3:24 PM) 19 br/min (12/01/22 3:04 PM) Temperature [96.8-100.4 DegF] 98.3 DegF (12/01/22 3:04 PM) 98.5 DegF (12/01/22 12:15 PM) 98.0 DegF (12/01/22 6:52 AM) Liters per Minute 3 L/min (12/01/22 3:04 PM) 3 L/min (12/01/22 12:15 PM) 3 L/min (12/01/22 6:52 AM) Mode of Delivery (Oxygen) Nasal cannula (12/01/22 3:04 PM) Nasal cannula (12/01/22 12:15 PM) Nasal cannula (12/01/22 6:52 AM) Blood pressure sites Arm, left (12/01/22 3:04 PM) Arm, left (12/01/22 12:15 PM) Arm, left (12/01/22 6:52 AM) Temperature Route Oral (12/01/22 3:04 PM) Oral (12/01/22 12:15 PM) Oral (12/01/22 6:52 AM) Dry Weight 172.3 kg (11/26/22 3:04 AM) Weight Obtained Via Bed scale (11/29/22 9:29 PM) Bed scale (11/26/22 3:04 AM) Dry Weight Obtained Via Bed scale (11/26/22 3:04 AM) Social History Social History Type Response Smoking Status Former smoker, quit more than 30 days ago entered on: 06/11/19 Sex Admission evaluation note * Charity MILLER, Nhi Lynch: PERFORM, MODIFY Event Display: Admission Note Authored Date: [id number] Patient: ??JO-ANN TEMPLE ? Age:??47 Years?Sex:??Female?:??1975?? Chief Complaint/Reason for Consultation see level 1 sheet History of Present Illness JoA-nn is a 47-year-old woman with obesity, hypertension, type 2 diabetes, asthma, REBEL with CPAP on3 L home oxygen, heart failure preserved ejection fraction on Lasix, who presented via EMS from home on 10/30 27 to the [facility] ED for shortness of breath. ?? History is limited given the patient intubated at time of admission, per ED note, patient had been having upper respiratory symptoms for 2 weeks with a sore throat and had progressed to worsening shortness of breath. ??However upon discussion with her sister, Giselle, this is a new development and day prior to admission, patient had been feeling fine. ??At this point, unclear what exactly the natural history of this presentation was. With that said, patient presented to the ED via EMS and initially febrile to 101.7, on 3 L nasal cannula. ??Labs however admission notable for a white count of 19.5 with neutrophilic predominance, patient's bicarb elevated to 30, creatinine 1.1, elevated from baseline of around 0.7, proBNP 296 witha TSH of 0.98. ??Patient's COVID-19 reportedly positive however per chart review, patient had recently been positive in late September. CT soft tissue done in the ED showed marked narrowing of the nasopharynx oropharynx and hypopharynxregion related to prominent lymphoid tissue as well as enlargement of the soft palate and uvula though no discrete abscess was identified. ??Given that patient had a muffled voice and overall was concerning for potential abscess while in the ED, ENT was called given that initial radiology reported in addendum a possible small retropharyngeal collection raising the possibility for early abscess. Patient taken to the OR overnight and oropharynx was found to have moderate edema and a stab incision with an 11 blade 1 cm to the right of the midline was explored though no purulence was encountered, patient had a swab taken from the space which was taken for culture. ??No purulence was ever found during OR. Patient ultimately transferred to the medical ICU while intubated. ?? Giselle [phone] Brother who lives with her is admitted at this time to [facility] Review of Systems Unable to assess Objective Vital Signs?? Temperature:??101.4 DegF??High (11/26/22 03:04:00) Temperature Route: Oral (11/26/22 03:04:00) Pulse Rate:??94 bpm??High (11/26/22 03:04:00) Heart Rate Monitored:??114 bpm??High (11/26/22 05:10:00) Respiratory Rate: 28 br/min (11/26/22 05:10:00) Systolic Blood Pressure:??88 mm Hg??Low (11/26/22 05:10:00) Diastolic Blood Pressure:??52 mm Hg??Low (11/26/22 05:10:00) Blood pressure sites: Arm, left (11/26/22 05:00:00) Mean Arterial Pressure: 94 mm Hg (11/26/22 03:04:00) Pulse Pressure: 36 mm Hg (11/26/22 05:10:00) Oxygen Saturation:??92 %??Low (11/26/22 05:10:00) Liters per Minute: 3 L/min (11/26/22 00:06:00) Mode of Delivery (Oxygen): Ventilator (11/26/22 05:00:00) FiO2: 50 % (11/26/22 05:00:00) End Tidal CO2: 43 mm Hg (11/26/22 05:10:00) ? Physical Exam General: Patient in no acute distress?? HEENT: normocephalic, atraumatic,.?? Respiratory: bilateral equal air entry, clear to auscultation with no wheezes or crackles. Intubated CVS: regular rate and rhythm, S1 and S2 present, no murmurs, rubs or gallops. No JVD.?? Abdomen: obese abdomen Extremities: warm + 2/2 pulses bilaterallly No edema noted b/l.?? Neuro: sedated, pt not following commands.?? Derm: No signs of infection, surrounding skin is intact with no evidence of erythema, no purulent discharge, no tenderness?? Psych: unable to assess Assessment/Plan Jo-Ann is a 47-year-old woman with obesity, hypertension, type 2 diabetes, asthma, REBEL with CPAP on3 L home oxygen, heart failure preserved ejection fraction on Lasix, who presented via EMS from home on 10/30 27 to the [facility] ED for shortness of breath in the setting of possible recent URI and found to have global??upper airway edema??s/p??attempted I/D of retropharyngeal abscess though no purulent material found and??admitted to ICU??while??intubated.? Neurologic: Intubated and sedated Plan: Sedation: Precedex and propofol Pain:??Fentanyl drip ? Cardiovascular: Heart failure preserved ejection fraction Hypotension Not in acute exacerbation. Hypotension may be secondary to propofol Pt received 2L IVF Plan: Holding??home Lasix at this time Chest x-ray mildly concerning for??pulmonary edema, consider??restarting??lasix Levophed started hold lisinopril ?? Pulmonary: Upper airway edema s/p retropharyngeal Hx of Asthma REBEL on CPAP Acute on chronic hypoxic??respiratory failure Obesity hypoventilation Patient with??severe obesity,??on??2 to 3 L of oxygen at home per chart review. ??Patient acutely more hypoxic given higher FiO2 requirements while in the??the ICU on vent.?? X-ray suggestive of pulmonary edema??though mild, other??concern for differential for acute hypoxic respiratory failure may be asthma exacerbation.?? This however does not explain the upper airway edema. Upper airway edema: ddx- infection, angioedema (pt on lisinopril), ? anaphylaxis if this is indeed acute Plan: - decadron 6mg daily - Unasyn 3mg q8 - f/u blood cx - f/u retropharyngeal swabs from OR - scheduled duoneb - restart pt trelegy when able ?? Infectious disease: upper airway swelling Febrile, leukocytosis Plan: - Unasyn 3mg q8 - f/u blood cx - f/u retropharyngeal swabs from OR ?? Renal and Metabolic: Acute Kidney injury osborn in place. B/L cr appox 0.8 Plan: - Urine Na/Cr/Urea - UA, complete - s/p 2 L fluids ?? Gastrointestinal: GERD Obesity Plan: - TF, trickle feeds started - pantoprazole GI ppx ?? Endocrinology: ??T2DM Plan: - Insulin gtt while on steroids ?? Hematologic: No active issues ?? MSK ??No active issues Quality measures: Activity - bedrest, head of bed to 30 degrees Code status - full code DVT prophylaxis - SQH GI Prophylaxis - pantoprazole Diet - TF Social:??updated sister, Giselle, on evening of admission. [phone] Brother who is reportedly HCPis admitted to [facility] [place] at this time ?? Patient case and plan discussed with Dr. Charity Nash MD Internal Medicine PGY-3 Pager: [phone]? Histories Allergies Allergies ?(Active and Proposed Allergies [...] 20:58:42<$> Brother: Asthma Sister: Asthma; Migraine ? Travel History Travel Outside [facility]: No ?? Medications Home Medications Albuterol (albuterol 0.083% inhalation solution)?3?Milliliter?2.5?Milligram?Inhalation?Every 6 hours?for 30?Days Cholecalciferol (Vitamin D3 2000 intl units oral capsule)?1?capsule?2,000?InternationalUnit?By Mouth?Daily dulaglutide (Trulicity Pen 0.75 mg/0.5 mL subcutaneous solution)?0.5?Milliliter?0.75?Milligram?Subcutaneous Injection?Every week?rotate injection sites Durable Medical Equipment (Oxygen Supplies)?See Instructions?2L with exertiondx: hypoxia w/ ambulation Durable Medical Equipment (Walker)?See Instructions?Dispense: Heavy Duty wheeled walker with seat and brakesDx: Morbid obesity Durable Medical Equipment (Shower Chair)?See Instructions?Dispense: Bariatric Shower ChairDx:Morbid Obesity, risk of falls Durable Medical Equipment (Able Device Gregg Monitor)?See Instructions?for 30?Days?use asdirected for Type 2 Diabetes Mellitus Durable Medical Equipment (Freestyle gregg 2 sensors 14 day)?See Instructions?check blood glucose [...] Instructions?use to check bs daily dx e11.9 fluticasone/umeclidinium/vilanterol (Trelegy Ellipta 200 mcg-62.5 mcg-25 mcg/inh inhalation powder)?1?puff(s)?Inhalation?Daily?for 30?Days?at the same time every day Furosemide (furosemide 40 mg oral tablet)?40?Milligram?1?tablet?By Mouth?2 times a day?for 90?Days Gabapentin (gabapentin 100 mg oral capsule)?100?Milligram?1?capsule?By Mouth?3 times a day Lisinopril (lisinopril 5 mg oral tablet)?5?Milligram?1?tablet?By Mouth?Daily Metformin (metFORMIN 1000 mg oral tablet)?1?tab(s)?1,000?Milligram?By Mouth?2 times a day Miscellaneous Rx (bedside commode)?See Instructions?dx: CHF, REBEL, obesity, decrease strength and mobility Miscellaneous Rx (rolling walker)?See Instructions?dx: CHF, REBEL, obesity, decrease strength and mobility Nitrofurantoin (nitrofurantoin macrocrystals-monohydrate 100 mg oral capsule)?TAKE 1 CAPSULE BY MOUTH TWICE DAILY FOR 1 MORE DOSE TO COMPLETE 5 DAYS TOTALwith food Phenazopyridine (phenazopyridine 200 mg oral tablet)?200?Milligram?1?tablet?By Mouth?3 times a day after meals?as needed?with food?as needed for urinary discomfort ? Inpatient Medications Medications (9) Active SCHEDULED: (7) Acetaminophen 325 mg Tablet (Acetaminophen Tablet) ??975 mg, By Mouth, Once Albuterol 0.083% Inhalation Solution (Albuterol 0.083% inhalation russell) ??2.5 mg 3 mL, BAND Nebulizer, Every 4 hours Ampicillin/Sulbactam 3 Gm Inj (Unasyn IVPB) ??3 Gm, IVPB, Every 8 hours Chlorhexidine 0.12% Oral Rinse UD (Peridex 0.12% Liquid) ??15 mL, Topically, 2 times a day Dexamethasone 4 mg/mL Inj (Dexamethasone Inj) ??10 mg 2.5 mL, IV Push Slowly, Every 6 hours Insulin Lispro 100 units/mL Inj (3mL) (Insulin LISPRO Sliding Scale) ??2-10 units, Subcutaneous Injection, Every 6 hours Mineral Oil/Petrolatum Ophth Ointment (Mineral Oil /Petrolatum Ophth) ??1 application, Eyes, Both, Every 4 hours CONTINUOUS: (2) Fentanyl 1000mcg/100mL NaCL 1,000 mcg (FENTanyl 1000mcg / 100mL NaCl 1,000 mcg) ??1,000 mcg 100 mL,IV Infusion Propofol 10mg/mL Cont IV (100mL) 1,000 mg (Propofol 1% /100 mL 1,000 mg) ??1,000 mg 100 mL, IV Infusion PRN: (0) ? Results Recent Labs BLOOD COUNT & DIFF WBC 19.5 k/mm3 (High)?? 11/25/2022 22:55 RBC 4.81 m/mm3 ()?? 11/25/2022 22:55 Hgb 15.2 Gm/dL ()?? 11/25/2022 22:55 Hct 45.2 % ()?? 11/25/2022 22:55 MCV 94.0 femtoliters ()?? 11/25/2022 22:55 MCH 31.6 pg ()?? 11/25/2022 22:55 MCHC 33.6 g/dL ()?? 11/25/2022 22:55 Platelet Count 244 k/mm3 ()?? 11/25/2022 22:55 RDW-SD 44.0 femtoliters ()?? 11/25/2022 22:55 MPV 11.2 femtoliters ()?? 11/25/2022 22:55 Nucleated RBC (Automated) 0.1 #/100 WBC'S ()?? 11/25/2022 22:55 Abs. NRBC 0.0 k/mm3 ()?? 11/25/2022 22:55 Abs. Neut 15.4 k/mm3 (High)?? 11/25/2022 22:55 Abs. Lymph 1.6 k/mm3 ()?? 11/25/2022 22:55 Abs. [place] 2.2 k/mm3 (High)?? 11/25/2022 22:55 Abs. Eo 0.0 k/mm3 ()?? 11/25/2022 22:55 Abs. Baso 0.1 k/mm3 ()?? 11/25/2022 22:55 Neut % 79.1 % (High)?? 11/25/2022 22:55 Lymph % 8.0 % (Low)?? 11/25/2022 22:55 [place] % 11.0 % (High)?? 11/25/2022 22:55 Eos % 0.2 % ()?? 11/25/2022 22:55 Baso % 0.3 % ()?? 11/25/2022 22:55 Hemoglobin (POC) POC Cartridge 16.0 Gm/dL (High)?? 11/25/2022 22:48 Hematocrit (POC) POC Cartridge 47 % (High)?? 11/25/2022 22:48 Imm Gran 1.4 % ()?? 11/25/2022 22:55 Abs. Imm Gran 0.3 k/mm3 ()?? 11/25/2022 22:55 ?? BLOOD GAS pH Venous (POC) POC Cartridge 7.40 ()?? 11/25/2022 22:48 pCO2 Venous (POC) POC Cartridge 53.6 mm Hg (High)?? 11/25/2022 22:48 pO2 Venous (POC) POC Cartridge 39 mm Hg ()?? 11/25/2022 22:48 Est Bicarbonate (POC) POC Cartridge 32.9 mmol/L (High)?? 11/25/2022 22:48 % O2 Sat Venous (POC) POC Cartridge 72 ()?? 11/25/2022 22:48 Base Excess (POC) POC Cartridge 8 ()?? 11/25/2022 22:48 pH 7.31 (Low)?? 11/26/2022 04:32 pCO2 45 mm Hg ()?? 11/26/2022 04:32 pO2 79 mm Hg (Low)?? 11/26/2022 04:32 Bicarbonate, Estimated 22 mmol/L ()?? 11/26/2022 04:32 Specimen Type - Blood Gas ARTERIAL ()?? 11/26/2022 04:32 Percent O2 (FIO2) 50 ()?? 11/26/2022 04:32 ?? CARDIAC Nt-Probnp 296 pg/mL (High)?? 11/25/2022 22:55 High Sensitivity Troponin (HSTnT) 10 ng/L ()?? 11/25/2022 22:55 ?? CHEM GENERAL Sodium 136 mmol/L ()?? 11/25/2022 22:55 Potassium 4.0 mmol/L ()?? 11/25/2022 22:55 Chloride 95 mmol/L (Low)?? 11/25/2022 22:55 Bicarbonate Level 30 mmol/L (High)?? 11/25/2022 22:55 Anion Gap 11 ()?? 11/25/2022 22:55 Sodium (POC) POC Cartridge 137 mmol/L ()?? 11/25/2022 22:48 Potassium (POC) POC Cartridge 3.9 mmol/L ()?? 11/25/2022 22:48 Glucose Level 124 mg/dL (High)?? 11/25/2022 22:55 Glucose (POC) POC Cartridge 130 (High)?? 11/25/2022 22:48 Glucose, POC 209 mg/dL (High)?? 11/26/2022 03:29 BUN 15 mg/dL ()?? 11/25/2022 22:55 Creatinine-Blood 1.1 mg/dL (High)?? 11/25/2022 22:55 Estimated GFR Creatinine 64 ML/MIN/1.73 M2 ()?? 11/25/2022 22:55 Calcium 9.6 mg/dL ()?? 11/25/2022 22:55 Ionized Calcium (POC) POC Cartridge 1.16 mmol/L ()?? 11/25/2022 22:48 Magnesium 1.7 mg/dL ()?? 11/25/2022 22:55 Protein, Total 8.0 Gm/dL ()?? 11/25/2022 22:55 Albumin 4.0 Gm/dL ()?? 11/25/2022 22:55 AG Ratio 1.0 ()?? 11/25/2022 22:55 Alkaline Phosphatase 91 units/L ()?? 11/25/2022 22:55 AST (SGOT) 21 units/L ()?? 11/25/2022 22:55 ALT (SGPT) 10 units/L ()?? 11/25/2022 22:55 Bilirubin, Total 0.6 mg/dL ()?? 11/25/2022 22:55 Lactate 1.0 mmol/L ()?? 11/25/2022 22:55 ?? COAG INR 1.1 ()?? 11/25/2022 22:55 Protime (PT) 11.9 seconds (High)?? 11/25/2022 22:55 ?? ENDOCRINE/TUMOR MARKER TSH 0.98 uIU/mL ()?? 11/25/2022 22:55 Serum Qual NEGATIVE mIU/mL ()?? 11/25/2022 22:55 ?? VIROLOGY COVID-19 PCR Specimen Source NASAL ()?? 11/25/2022 23:45 COVID-19 PCR Result POSITIVE (Abnormal)?? 11/25/2022 23:45 COVID-19 POC Result NEGATIVE ()?? 11/25/2022 23:59 ? Microbiology ?? COVID-19 (2019 Novel Coronavirus) PCR?? Completed?? Source: Nasal Body Site: Nasopharyngeal Collected Dt/Tm: 11/25/2022 23:27 Last Updated Dt/Tm: 11/26/2022 02:28 ? * Maggie Cha MD, Asif Abdalla: PERFORM Event Display: Admission Note Authored Date: [id number] Date of Service:??11/26/22 ?? Patient seen and examined, data reviewed, case and management discussed with house staff on rounds on the date of service. I confirmed the findings and agree with the documentation of the assessment and plan of care we developed together as detailed above with the following highlights/additions/modifications. ?? Background: 47 YO F, Hx of obesity, HTN DM2,??asthma, REBEL with CPAP, chronic hypoxic respiratory failure??on 3 LPM O2,??HFpEF,??presented to the ED on 11/25/22 because of SOB and viral illness.??She was found to have??upper airway edema??and was taken to OR for I&D of possible??retropharyngeal abscess. Howev er,??no purulent material found intraoperatively and patient was kept intubated and transferred to MICU. ? Assessment:?? #Upper airway edema (no involvement of tongue and lips), likely secondary to??infectious etiology.? #MAME. #Fever. #Acute hypoxic respiratory failure requiring intubation and invasive mechanical ventilation. #Hx of obesity, HTN DM2,??asthma, REBEL/OHS with CPAP, chronic hypoxic respiratory failure??on 3 LPM O2,??HFpEF ? Plan:?? -??Start Unasyn. - F/up retropharyngeal swab. - Dexa 6mg daily. - Sedation with Propofol and Precedex. Analgesia with Fentanyl. - Daily sedation vacation and SBT as tolerated. - Rest per note below. ?? At the time of service, this patient is critically ill due to the acute impairment of 1 or more vital organ systems such that there is a high probability of imminent or life-threatening deteriorationin the patient???s condition.? Critical Care Time = 40m (This represents the total time I personally spent evaluating, managing and providing care exclusive of time spent for separately billable procedures.) EKG study * Event Display: ECG 12-Lead Authored Date: [id number] Please click on pdf link to open report * Event Display: ECG 12-Lead Authored Date: [id number] Ventricular Rate: 73 BPM Atrial Rate: 73 BPM P-R Interval: 136 ms QRS Duration: 86 ms Q-T Interval: 386 ms QTC Calculation(Bazett): 425 ms P Roscoe: 51 degrees R Roscoe: 43 degrees T Roscoe: 52 degrees Normal sinus rhythm with sinus arrhythmia Normal ECG Confirmed by IVAN METZ ([id number]) on 11/29/2022 8:34:36 AM [place]: IVAN METZ * Event Display: EKG Authored Date: [id number] * Event Display: ECG 12-Lead Authored Date: [id number] Please click on pdf link to open report * Event Display: ECG 12-Lead Authored Date: [id number] Ventricular Rate: 116 BPM QRS Duration: 76 ms Q-T Interval: 380 ms QTC Calculation(Bazett): 528 ms R Roscoe: 71 degrees T Roscoe: 79 degrees Normal sinus rhythm Poor data quality, interpretation may be adversely affected Prolonged QT Abnormal ECG When compared with ECG of 05-SEP-2022 22:17, Vent. rate has increased BY 38 BPM Confirmed by MARIO XAVIER MD ([id number]) on 11/29/2022 9:44:48 AM [place]: MARIO XAVIER MD Note * Hillary Mendes RN: PERFORM Event Display: Discharge/Transfer Note Hospital Authored Date: [id number] Nursing Discharge Note Entered On: 12/01/2022 14:39 EST Performed On: 12/01/2022 14:38 EST by Hillary Mendes RN Nursing Discharge Note 2 Discharge Time : 12/01/2022 16:54 EST Hillary Mendes RN - 12/01/2022 17:36 EST Discharge Level of Care at Discharge : Homehealth/VNA Discharge VNA/Hospice/Home Care(v001) : [facility] Patient Left Unit Via : Wheelchair Patient Accompanied Off Unit with : Responsible adult DC Instructions Provided & Signed by Pt : Yes Patient Understands D/C Instructions : Yes Verbalized Understanding of D/C Plan By : Patient Patient Instructions Discharge Signed : Yes Did Pt have Specialty Bed or Wound Vac : Carolina Mendes RN, Hillary Back - 12/01/2022 14:38 EST * Ermias MILLER, Pavel Brown: MODIFY, PERFORM Event Display: Discharge/Transfer Note Hospital Authored Date: Patient: ??WINDYALICJARA ? Age:??47 Years?Sex:??Female?:??1975?? Patient Information Discharge Location: Primary Care Physician: Hazel Valadez DO Admit Date/Time: 11/26/22 00:10 Discharge Disposition Discharge Disposition: Home with Home Health Discharge Diagnosis Compromised airway (J98.8) Retropharyngeal abscess (J39.0) ?? _ Discharge Medications Albuterol (albuterol 0.083% inhalation solution)?3?Milliliter?2.5?Milligram?Inhalation?Every 6 hours?for 30?Days Amoxicillin-Clavulanate (amoxicillin-clavulanate 875 mg-125 mg oral tablet)?1?tab(s)?By Mouth?2 times a day?for 5?Days Cholecalciferol (Vitamin D3 2000 intl units oral capsule)?1?capsule?2,000?InternationalUnit?By Mouth?Daily dulaglutide (Trulicity Pen 0.75 mg/0.5 mL subcutaneous solution)?0.5?Milliliter?0.75?Milligram?Subcutaneous Injection?Every week?rotate injection sites fluticasone/umeclidinium/vilanterol (Trelegy Ellipta 200 mcg-62.5 mcg-25 mcg/inh inhalation powder)?1?puff(s)?Inhalation?Daily?for 30?Days?at the same time every day Furosemide (furosemide 40 mg oral tablet)?40?Milligram?1?tablet?By Mouth?2 times a day?for 90?Days Gabapentin (gabapentin 100 mg oral capsule)?100?Milligram?1?capsule?By Mouth?3 times a day Metformin (metFORMIN 1000 mg oral tablet)?1?tab(s)?1,000?Milligram?By Mouth?2 times a day Oxycodone (oxyCODONE 5 mg oral tablet)?5?Milligram?1?tablet?By Mouth?Every 6 hours?as needed?for 3?Days?Pain , Severe ? Medications Started augmentin oxycodone Medications Discontinued lisinopril Doses Changed none PCP Follow-Up/Heads-Up please repeat CBC within 1 week please continue to manage patient's chronic medical conditions please see note below re: lisinopril - would continue to hold ACEi at this time Future Appointments Sunday 1:00 PM EST ?? With: Jacque STARK, Flo Where: [facility] Medicine [facility] [place] [address]- Objective Assessment and Plan Assessment:??47-year-old woman with a history of obesity, hypertension, type 2 diabetes, asthma, REBEL with CPAP on 3 L home oxygen, heart failure preserved ejection fraction who presented from home on11/25 to the ER with shortness of breath in the setting of possible recent URI and found to have global upper airway edema s/p attempted I/D of retropharyngeal abscess though no purulent material found and admitted to ICU due to needing to be intubated by ENT services??in the OR. ? Acute on chronic hypoxic respiratory failure: Upper airway edema Leukocytosis Retropharyngeal abscess ENT following. Took patient to the OR for I&D. No purulence was encountered though swab was positive for Group F beta haemolytic strep Also history of asthma, REBEL, and obesity hypoventilation on IVAPS at home. On 3 L oxygen Patient was successfully extubated back??on usual home O2 of 3L No stridor or dysphagia/odynophagia at this time was treated with dexamethasone - now discontinued ?? There was some initial concern that presentation could have been related to angioedema Patient was on lisinopril at home and this was discontinued ?? Recs transitioned Unasyn??to??PO augmentin -??would complete 10 day course PT now recommending home with services stop lisinopril at this time ?? Acute Kidney injury, resolved Creatinine elevated from 0.8-1.3., Resolved will restart diuretic ? DM Hyperglycemia: had elevated glucose in the setting??of steroid use A1c in 06/2022 was 7.0 restart home regime ?? Heart failure preserved ejection fraction resume furosemide hold lisinopril as above ?? Menstruation with blood clot patient reports that her periods tend to be irregular and heavy Hb stable was heavier in the setting of receiving enoxaparin will cancel US at this time outpatient follow up with gynaecology ?? Grief Social work consult for ongoing support ?? Code Status: FULL ? Vital Signs?? Temperature: 98 DegF (12/01/22 06:52:00) Temperature Route: Oral (12/01/22 06:52:00) Pulse Rate: 80 bpm (12/01/22 06:52:00) Respiratory Rate: 20 br/min (12/01/22 09:12:00) Respiratory Rate: 20 br/min (12/01/22 09:12:00) Systolic Blood Pressure: 123 mm Hg (12/01/22 06:52:00) Diastolic Blood Pressure: 73 mm Hg (12/01/22 06:52:00) Blood pressure sites: Arm, left (12/01/22 06:52:00) Mean Arterial Pressure: 90 mm Hg (12/01/22 06:52:00) Pulse Pressure: 50 mm Hg (12/01/22 06:52:00) Oxygen Saturation: 95 % (12/01/22 06:52:00) Liters per Minute: 3 L/min (12/01/22 06:52:00) Mode of Delivery (Oxygen): Nasal cannula (12/01/22 06:52:00) Early Warning Score: 5 (12/01/22 11:42:32) ? . Physical Exam Gen: comfortable, well: HEENT: moist mucous membranes. no stridor Chest: CTA, no wheeze/crackles CVS: no M/G/R, no JVD Abdo: soft, non-tender Ext:??trace oedema, no cyanosis or clubbing Neuro: no deficit Psych: WNL Surgical Procedures Incision and Drainage Peritonsilar Absce 11/26/2022 01:12 Pending Results Add On Lab Order ordered on 11/26/2022 Blood Culture ordered on 11/25/2022 Blood Culture #2 ordered on 11/25/2022 Fungal Culture, Nonrespiratory ordered on 11/26/2022 Patient Education Titles Diet: Diabetes?? Amoxicillin/Clavulanate Oral Tablet?? Follow-Up Appointments Added Follow Up ?Time Frame ?Comments Hazel Valadez?1 to 2 weeks Post Discharge Care Misc Durable Medical Equipment ?bariatric walker, ??See Instructions, # 1, ??each, Refills 0, Tot. Refills 0, ??Maintenance, ??for difficulty with ambulation, ??12/01/22 11:24:00 EST, ??Supply Home Health Face to Face *Denotes mandatory massey ?? *I certify that this patient is under my care and that I or an allowed non- physician working with me had a face to face encounter with the patient on this date:??12/01/2022 12:21 ?? *The encounter with the patient was in whole, or in part, for the following medical condition, which is the primary diagnosis(es) for home health care:??Compromised airway (J98.8) Retropharyngeal abscess (J39.0) ? *Select the indications for the discipline/s that are being arranged for this patient. Nursing (select all that apply): [_] None [_x] Medication management (reconciliation, teaching)?? [_] Chronic disease management?? [_] Wound care and treatment?? [x_] Home safety evaluation [_] Administer SQ/IM/IV medications?? [_] Cath care?? [_] Drain care?? [_] Trach or GT care?? Other _ Occupation Therapy (select all that apply): [_] None [_] ADL Management [_] Fall prevention training [_] Energy conservation [_] Cognitive training Other _ Physical Therapy (select all that apply): [_] None [_x] Functional mobility training [x_] Home exercise program to strengthen [_] Increase ROM?? [_] Falls prevention training [_] Home maintenance program for chronic disease Other _ Speech Therapy (select all that apply): [_] None [_] Swallow evaluation and training [_] Speech and language training [_] Cognitive training to process, organize, and/or recall information Other _ ? *Homebound due to (select all that apply): [_] Inability to leave home without assistance/supervision [_] Inability to ambulate without assistance [_] Pain [x_] Decreased strength and endurance [_] Unsteady gait [_] Severe SOB and fatigue [_] Impaired transfers [_] Inability to negotiate stairs [_] Limited weight bearing [_] Mental status change? *Physician Signature: _Pavel Monson MD ?? *By signing this, I certify that I have personally evaluated the patient and agree with the findings and recommendations as documented above. ? Results Discharge Labs BLOOD COUNT & DIFF WBC 16.1 k/mm3 (High)?? 12/01/2022 01:39 RBC 4.46 m/mm3 ()?? 12/01/2022 01:39 Hgb 13.8 Gm/dL ()?? 12/01/2022 01:39 Hct 43.0 % ()?? 12/01/2022 01:39 MCV 96.4 femtoliters ()?? 12/01/2022 01:39 MCH 30.9 pg ()?? 12/01/2022 01:39 MCHC 32.1 g/dL (Low)?? 12/01/2022 01:39 Platelet Count 267 k/mm3 ()?? 12/01/2022 01:39 RDW-SD 44.1 femtoliters ()?? 12/01/2022 01:39 MPV 10.4 femtoliters ()?? 12/01/2022 01:39 Nucleated RBC (Automated) 0.1 #/100 WBC'S ()?? 12/01/2022 01:39 Abs. NRBC 0.0 k/mm3 ()?? 12/01/2022 01:39 Abs. Neut 19.6 k/mm3 (High)?? 11/26/2022 06:27 Abs. Lymph 1.7 k/mm3 ()?? 11/26/2022 06:27 Abs. [place] 0.9 k/mm3 ()?? 11/26/2022 06:27 Abs. Eo 0.0 k/mm3 ()?? 11/26/2022 06:27 Abs. Baso 0.1 k/mm3 ()?? 11/26/2022 06:27 Neut % 86.0 % (High)?? 11/26/2022 06:27 Lymph % 7.3 % (Low)?? 11/26/2022 06:27 [place] % 3.9 % (Low)?? 11/26/2022 06:27 Eos % 0.0 % ()?? 11/26/2022 06:27 Baso % 0.3 % ()?? 11/26/2022 06:27 Hemoglobin (POC) POC Cartridge 16.0 Gm/dL (High)?? 11/25/2022 22:48 Hematocrit (POC) POC Cartridge 47 % (High)?? 11/25/2022 22:48 Imm Gran 2.5 % ()?? 11/26/2022 06:27 Abs. Imm Gran 0.6 k/mm3 ()?? 11/26/2022 06:27 ?? BLOOD GAS pH Venous (POC) POC Cartridge 7.40 ()?? 11/25/2022 22:48 pCO2 Venous (POC) POC Cartridge 53.6 mm Hg (High)?? 11/25/2022 22:48 pO2 Venous (POC) POC Cartridge 39 mm Hg ()?? 11/25/2022 22:48 Est Bicarbonate (POC) POC Cartridge 32.9 mmol/L (High)?? 11/25/2022 22:48 % O2 Sat Venous (POC) POC Cartridge 72 ()?? 11/25/2022 22:48 Base Excess (POC) POC Cartridge 8 ()?? 11/25/2022 22:48 pH 7.28 (Low)?? 11/26/2022 08:54 pCO2 47 mm Hg (High)?? 11/26/2022 08:54 pO2 91 mm Hg ()?? 11/26/2022 08:54 Bicarbonate, Estimated 21 mmol/L (Low)?? 11/26/2022 08:54 Specimen Type - Blood Gas ARTERIAL ()?? 11/26/2022 08:54 Percent O2 (FIO2) 50 ()?? 11/26/2022 08:54 ?? CARDIAC Nt-Probnp 296 pg/mL (High)?? 11/25/2022 22:55 High Sensitivity Troponin (HSTnT) 10 ng/L ()?? 11/25/2022 22:55 ?? CHEM GENERAL Sodium 140 mmol/L ()?? 11/30/2022 03:06 Potassium 4.2 mmol/L ()?? 11/30/2022 03:06 Chloride 97 mmol/L (Low)?? 11/30/2022 03:06 Bicarbonate Level 35 mmol/L (High)?? 11/30/2022 03:06 Anion Gap 8 ()?? 11/30/2022 03:06 Sodium (POC) POC Cartridge 137 mmol/L ()?? 11/25/2022 22:48 Potassium (POC) POC Cartridge 3.9 mmol/L ()?? 11/25/2022 22:48 Glucose Level 115 mg/dL (High)?? 11/30/2022 03:06 Glucose (POC) POC Cartridge 130 (High)?? 11/25/2022 22:48 Glucose, POC 97 mg/dL ()?? 12/01/2022 07:47 BUN 22 mg/dL (High)?? 11/30/2022 03:06 Creatinine-Blood 0.9 mg/dL ()?? 11/30/2022 03:06 Estimated GFR Creatinine 76 ML/MIN/1.73 M2 ()?? 11/30/2022 03:06 Calcium 9.2 mg/dL ()?? 11/30/2022 03:06 Calcium, Ionized pH Corrected 1.19 mmol/L ()?? 11/26/2022 18:55 Ionized Calcium (POC) POC Cartridge 1.16 mmol/L ()?? 11/25/2022 22:48 Phosphorus 3.5 mg/dL ()?? 11/26/2022 06:27 Magnesium 2.1 mg/dL ()?? 11/26/2022 06:27 Protein, Total 6.7 Gm/dL ()?? 11/27/2022 04:30 Albumin 3.2 Gm/dL (Low)?? 11/27/2022 04:30 AG Ratio 0.9 ()?? 11/27/2022 04:30 Alkaline Phosphatase 67 units/L ()?? 11/27/2022 04:30 AST (SGOT) 11 units/L ()?? 11/27/2022 04:30 ALT (SGPT) 6 units/L ()?? 11/27/2022 04:30 Bilirubin, Total 0.3 mg/dL ()?? 11/27/2022 04:30 Lactate 1.3 mmol/L ()?? 11/27/2022 04:20 ?? COAG INR 1.1 ()?? 11/25/2022 22:55 Protime (PT) 11.9 seconds (High)?? 11/25/2022 22:55 ?? ENDOCRINE/TUMOR MARKER TSH 0.98 uIU/mL ()?? 11/25/2022 22:55 Serum Qual NEGATIVE mIU/mL ()?? 11/25/2022 22:55 ?? MISC. CHEMISTRY Hold Gel Top SPECIMEN DISCARDED AFTER 1 WEEK ()?? 12/01/2022 01:39 ? UA/URINALYSIS Appear/Color, Urine YELLOW ()?? 11/26/2022 04:48 Specific [place], Urine 1.046 (High)?? 11/26/2022 04:48 pH, Urine 6.5 ()?? 11/26/2022 04:48 Albumin, Urine 2+ (Abnormal)?? 11/26/2022 04:48 Glucose, Urine NEGATIVE ()?? 11/26/2022 04:48 Ketones, Urine NEGATIVE ()?? 11/26/2022 04:48 Bilirubin, Urine NEGATIVE ()?? 11/26/2022 04:48 Hemoglobin, Urine NEGATIVE ()?? 11/26/2022 04:48 Nitrite, Urine NEGATIVE ()?? 11/26/2022 04:48 Leukocyte, Urine NEGATIVE ()?? 11/26/2022 04:48 Urobilinogen 2 mg/dL (Abnormal)?? 11/26/2022 04:48 WBC's, Urine 1 /HPF ()?? 11/26/2022 04:48 RBC's, Urine 1 /HPF ()?? 11/26/2022 04:48 Squamous Epith <1 /HPF ()?? 11/26/2022 04:48 Hyaline Cast 1 LPF ()?? 11/26/2022 04:48 Mucus MODERATE /LPF ()?? 11/26/2022 04:48 ?? URINE OTHER Creatinine, Urine Random 174.0 mg/dL ()?? 11/26/2022 04:48 Sodium, Urine Random 25 mmol/L ()?? 11/26/2022 04:48 Urea Nitrogen, Urine Random 433.2 mg/dL ()?? 11/26/2022 04:48 ? VIROLOGY Adenovirus by PCR NEGATIVE ()?? 11/25/2022 23:45 Coronavirus 229E by PCR (not COVID-19) NEGATIVE ()?? 11/25/2022 23:45 Coronavirus HKU1 by PCR (not COVID-19) NEGATIVE ()?? 11/25/2022 23:45 Coronavirus NL63 by PCR (not COVID-19) NEGATIVE ()?? 11/25/2022 23:45 Coronavirus OC43 by PCR (not COVID-19) NEGATIVE ()?? 11/25/2022 23:45 Human Metapneumovirus by PCR NEGATIVE ()?? 11/25/2022 23:45 Rhinovirus/Enterovirus by PCR NEGATIVE ()?? 11/25/2022 23:45 Influenza A by PCR NEGATIVE ()?? 11/25/2022 23:45 Influenza B by PCR NEGATIVE ()?? 11/25/2022 23:45 Parainfluenza 1 by PCR NEGATIVE ()?? 11/25/2022 23:45 Parainfluenza 2 by PCR NEGATIVE ()?? 11/25/2022 23:45 Parainfluenza 3 by PCR NEGATIVE ()?? 11/25/2022 23:45 Parainfluenza 4 by PCR NEGATIVE ()?? 11/25/2022 23:45 RSV by PCR NEGATIVE ()?? 11/25/2022 23:45 Bordetella Pertussis by PCR NEGATIVE ()?? 11/25/2022 23:45 Chlamydophila Pneumoniae by PCR NEGATIVE ()?? 11/25/2022 23:45 Mycoplasma Pneumoniae by PCR NEGATIVE ()?? 11/25/2022 23:45 COVID-19 PCR Specimen Source NASAL ()?? 11/30/2022 05:29 COVID-19 PCR Result NEGATIVE ()?? 11/30/2022 05:29 COVID-19 POC Result NEGATIVE ()?? 11/25/2022 23:59 COVID-19 (SARS-CoV-2) by PCR NEGATIVE ()?? 11/25/2022 23:45 Bordetella Parapertussis by PCR NEGATIVE ()?? 11/25/2022 23:45 ? Procedures(s) ?Operative Note ?? 11/26/2022 01:27??by Kong Trejo MD, I ?Operative Information Procedure Date: 11/26/2022. Preoperative Diagnosis: Retropharyngeal abscess. Postoperative Diagnosis: Airway edema with no retropharyngeal abscess. Procedure Performed: Incision and drainage of retropharyngeal abscess. Surgeon: Kong Trejo MD, I. Anesthesia Type: General. Patient was taken to the operating room urgently to secure her airway. Imaging obtained immediatelyprior with notation of possible retropharyngeal abscess contributing to her hypoxia and tachypnea ?? Operative Note Findings Incision in the left and right retropharynx without return of purulent material. Culture taken fromthe retropharyngeal space Specimen Micro from retropharynx Estimated Blood Loss Minimal Description of Procedure Patient was taken to the operating placed on table in a supine position given anesthesia for an awake intubation using a glide scope. In preparation for possible difficult airway and tracheostomy thelower neck was injected with 6 mL of 1% lidocaine with 1-100,000 epinephrine approximately 1 fingerbreadth above the sternal notch in the midline. ?? After the airway was secured the table was rotated 90 degrees. McIvor mouthgag was inserted. Head was supported using towels. Oropharynx with moderate edema. Stab incision with an 11 blade 1 cm to the right of midline was explored with Corin retractor as well as tonsil forcep. No purulence was encountered. Culture swab was taken from this space. A similar stab incision with an 11 blade was performed in the left of midline and widened with Corin retractor and tonsil forceps. Again no purulence wasobtained. Irrigation with saline was then flushed through the oropharynx. An orogastric was passed to decompress the gastric contents and then secured to the endotracheal tube. Instrumentation was then removed and the patient was turned back to the care of anesthesia Report sent to all consultants: Kong Trejo MD, I. ? Imaging(s) ?CT Head/Brain W/O Contrast ?? 11/25/2022 23:14??by Steve Delarosa MD ? FINDINGS: ?? Study limited by patient motion artifact. ?? Boiler Operator Helper view findings, lines and tubes: None. ?? BRAIN AND EXTRA-AXIAL SPACES: No parenchymal hemorrhage, midline shift, or mass effect. Maldonado-white matter differentiation is wellpreserved. No acute infarct. No paranasal sinus air-fluid level. Postsurgical changes from right partial mastoidectomy. ?? No subarachnoid hemorrhage. No subdural or epidural collection. ?? CALVARIUM, SKULL BASE, AND SOFT TISSUES: No fractures or suspicious bony lesions. ?? The paranasal sinuses and mastoid air cells are clear. ?? Visualized orbits and globes are intact. ?? The extracranial soft tissues are unremarkable. ?? IMPRESSION: ?? No acute intracranial pathology. ?CT Soft Tissue Neck W/ Contrast ?? 11/25/2022 23:14 ? FINDINGS: ?? There is prominent adenoidal enlargement narrowing the nasopharynx. There is also thickening of thesoft palate as well as prominence of the lymphoid tissue in the posterior oropharynx. Uvula appearsenlarged. There is marked narrowing of the oropharynx. I do not see evidence of discrete abscess. There is enlargement of multiple lymph nodes involving both left and right neck most likely reactive.I do not see evidence of bony abnormality. ? IMPRESSION: ?? Marked narrowing of the nasopharynx, oropharynx, and hypopharyngeal region related to prominent lymphoid tissue as well as enlargement of the soft palate and uvula. No discrete abscess identified. ?? ADDENDUM: CT Soft Tissue Neck W/ Contrast There is also significant prominence of the retropharyngeal soft tissues with a hypodense area in the prevertebral area at the C2-C3 level in particular that could represent early abscess. Prevertebral soft tissues measure 2.4 cm in maximal dimension. Hypodense area raising possibility of early abscess may measure as large as 1 cm maximal thickness. On the previous examination from 06/11/2019, there is significant prominence of the prevertebral soft tissues as well, though I believe that the thickness has increased compared to that time. ?Chest Portable ?? 11/27/2022 05:37??by Dwain MILLER, Nicola V ? IMPRESSION: ?? Mild asymmetric prominence of the pulmonary vascularity on the right side with probable minimal interstitial edema and fissural fluid essentially unchanged. ? Consults(s) ?Consultation Note ?? 11/26/2022 01:19??by Kong Trejo MD, I ?ENT ? Microbiology(s) ?Deep Wound Culture ?? 11/26/2022 01:15 ? SPECIMEN DESCRIPTION : ABSCESS PERITONSILLAR ?? SPECIAL REQUESTS : ESWAB REC'D RETRO PHARYNGEAL SPACE ?? GRAM STAIN : 3+ POLYMORPHONUCLEAR LEUKOCYTES ?4+ RBC'S ?2+ GRAM POSITIVE RODS ?2+ GRAM POSITIVE COCCI ?? CULTURE : 3+ STREPTOCOCCI, GROUP F BETA HEMOLYTIC. SUSCEPTIBILITY TESTING NOT ?ROUTINELY PERFORMED ON THIS ISOLATE. ?No other significant microorganisms isolated. ?Please consult the laboratory ([id number]) within 7 days if more ?definitive studies are clinically indicated. ?? REPORT STATUS : FINAL 11/28/2022 ? 40_ minutes spent on discharge * Vaughn WARREN, Hillary Back: PERFORM Event Display: Patient Education/Instruction Authored Date: [id number] Inpatient Adult Discharge Instructions [address] [address] Name: OJ-ANN TEMPLE : 1975 Visit: 11/26/2022 00:10:00 Current Date: 12/01/2022 14:39 Account: [id number] Inpatient Adult Discharge Instructions We would like [...] and their families. Surveys are administered by [employer] ?? If further treatment with your primary care physician or another doctor is recommended, it is important for you to keep the appointment. Call your primary care physician or return to the Emergency Department immediately if your condition worsens, fails to improve, or new symptoms develop. If you need to find a doctor, you can call [facility] eROI for a referral at [phone] or toll free at [phone]) or log in to [email or web address].. ?? You can view and manage your care through the patient portal or by using a health care radha of your choosing. [employer] is a website that allows you to securely view your medical information including your hospital discharge summary, office visit summaries, medications and follow-up visits. You can also request appointments, renew medications, and request access to your medical information using a health care radha of your choosing, or just ask a question. You can enroll at [email or web address] or register during your next office visit. You have been discharged from [facility], Patient Care Unit: S2. If you have any questions regarding these instructions after you leave, please call us and we will be happy to assist you. [facility] Your Care Team Attending Physician Ermias MILLER, Pavel Brown Consulting Providers Neil MILLER, Kong Baker Discharging Providers Ermias MILLER, Pavel Brown Reason for Admission see level 1 sheet Your Diagnosis Compromised airway COVID Retropharyngeal abscess Tests Performed Below is a partial list of the tests performed during your hospitalization. You may have had other tests and procedures not included in this list. Please discuss all test results with your provider. ABG BASE EXCESS POC CARTRIDGE Basic Metabolic Panel BUN CALCIUM IONIZED POC CART Calcium Level CBC CBC w/ Differential Complete Urinalysis Comprehensive Metabolic Panel COVID-19 (2019 Novel Coronavirus) PCR COVID-19 RNA POC Creatinine Electrolytes Glucose Level GLUCOSE POC GLUCOSE POC CARTRIDGE H + H HEMATOCRIT POC CARTRIDGE HEMOGLOBIN POC CARTRIDGE High??Sensitivity??Troponin T HOLD GEL TUBE INR Ionized Calcium Lactate Level Lytes Magnesium Level Phosphorus Level POTASSIUM POC CARTRIDGE Serum Qualitative ProBNP RESP PATH PANEL W/COVID-19 SODIUM POC CARTRIDGE TSH with T4 Reflex (Adults Only) Urine Creatinine Urine Sodium Urine Urea Nitrogen VBG POC CARTRIDGE CT Head/Brain W/O Contrast CT Soft Tissue Neck W/ Contrast CXR Portable Portable Chest Primary Care Provider Hazel Valadez DO Advance Directive Health Care Proxy on File Yes - Health Care Proxy Discharge Vitals Temperature: 98.5 DegF Height: 149.86 cm Pulse Rate: 83 bpm Weight: 170 kg Respiratory Rate: 18 br/min Body Mass Index:??76.72 kg/m2??Critical Systolic Blood Pressure: 121 mm Hg Body surface area: 2.68 Diastolic Blood Pressure: 76 mm Hg ?? Oxygen Saturation: 97 % ?? Studies Pending All tests and labs ordered during this hospital stay have been completed unless listed below. Please discuss all pending results with your provider listed above in these instructions. ?? Add On Lab Order Blood Culture Blood Culture #2 Fungal Culture, Nonrespiratory (FUNGAL CULT,NON-RESPIRATORY) What to do next Instructions From Your Doctor Discharge Orders Scheduled Follow-Up Appointments Sunday 1:00 PM EST ?? With: Flo Santillan NP Where: [facility] [address] [place] [address]- You Need to Schedule the Following Appointments Follow Up with??Hazel Valadez When??Within 1 to 2 weeks Where: [address] [place] [address]- Business (1) Discharge Medications JO-ANN TEMPLE :1975 Visit Date:11/26/2022 Medications: Please continue your medications until treatment is completed or stopped by your provider. Medications not listed below should be discontinued. Discuss any questions related to medications with your provider. What How Much When Instructions Next Dose New Amoxicillin-Clavulanate (amoxicillin-clavulanate 875 mg-125 mg oral tablet) 1 tab(s) Oral Twice a day Duration: 5 Days Pickup at [facility] 3 2/ tonight New Durable Medical Equipment (bariatric walker) See instructions for difficulty with ambulation ?? Printed Prescription New Oxycodone (oxyCODONE 5 mg oral tablet) 1 tab(s) Oral Every 6 hours as needed for Pain , Severe Duration: 3 Days Pickup at [facility] 3 as needed Unchanged Albuterol (albuterol 0.083% inhalation solution) 3 Milliliter Inhalation Every 6 hours Duration: 30 Days /3 at 5pm Unchanged Cholecalciferol (Vitamin D3 2000 intl units oral capsule) 1 capsule Oral Daily 2/4 tomorrow morning Unchanged dulaglutide (Trulicity Pen 0.75 mg/ 0.5 mL subcutaneous solution) 0.5 Milliliter Subcutaneous Injection Every week rotate injection sites ?? resume home schedule Unchanged Durable Medical Equipment (BP monitor and cuff) See instructions to check BP daily. ICD code I10 ?? 2/4 tomorrow morning Unchanged Durable Medical Equipment (Oxygen Supplies) See instructions 2L with exertion dx: hypoxia w/ ??ambulation ?? resume home dosing Unchanged fluticasone/ umeclidinium/ vilanterol (Trelegy Ellipta 200 mcg-62.5 mcg-25 mcg/ inh inhalation powder) 1 puff(s) Inhalation Daily Duration: 30 Days at the same time every day ?? 2/4 tomorrow morning Unchanged Furosemide (furosemide 40 mg oral tablet) 1 tab(s) Oral Twice a day Duration: 90 Days 2/3 tonight Unchanged Gabapentin (gabapentin 100 mg oral capsule) 1 capsule Oral 3 times a day 2/3 tonight Unchanged Metformin (metFORMIN 1000 mg oral tablet) 1 tab(s) Oral Twice a day 2/3 tonight [facility] [address], [place] [id number] [phone] ?? What How Much When Why Comments Stop Taking Lisinopril (lisinopril 5 mg oral tablet) 1 tab(s) Oral Daily Stop Taking Nitrofurantoin (nitrofurantoin macrocrystals-monohydrate 100 mg oral capsule) TAKE 1 CAPSULE BY MOUTH TWICE DAILY FOR 1 MORE DOSE TO COMPLETE 5 DAYS TOTAL with food ?? Stop Taking Phenazopyridine (phenazopyridine 200 mg oral tablet) 1 tab(s) Oral 3 times a day after meals as needed for as needed for urinary discomfort UTI symptoms with food ?? Test Results Below is a partial list of the most recent Laboratory test results done prior to this discharge. You may have had other tests and procedures not included in this list. Please discuss all test resultswith your provider. ABG (11/26/2022) ???pH - 7.28???pCO2 - 47 mm Hg???pO2 - 91 mm Hg???Bicarbonate, Estimated - 21 mmol/L???Specimen Type - Blood Gas - ARTERIAL???Percent O2 (FIO2) - 50 BASE EXCESS POC CARTRIDGE (11/25/2022) ???Base Excess (POC) POC Cartridge - 8 Basic Metabolic Panel (11/30/2022) ???Sodium - 140 mmol/L???Potassium - 4.2 mmol/L???Chloride - 97 mmol/L???Bicarbonate Level - 35 mmol/L???Anion Gap - 8???Glucose Level - 115 mg/dL???BUN - 22 mg/dL???Creatinine-Blood - 0.9 mg/dL???Estimated GFR Creatinine - 76 ML/MIN/1.73 M2???Calcium - 9.2 mg/dL BUN (11/29/2022) ???BUN - 24 mg/dL CALCIUM IONIZED POC CART (11/25/2022) ???Ionized Calcium (POC) POC Cartridge - 1.16 mmol/L Calcium Level (11/29/2022) ???Calcium - 9.3 mg/dL CBC (12/01/2022) ???WBC - 16.1 k/mm3???RBC - 4.46 m/mm3???Hgb - 13.8 Gm/dL???Hct - 43.0 %???MCV - 96.4 femtoliters???MCH - 30.9 pg???MCHC - 32.1 g/dL???Platelet Count - 267 k/mm3???RDW-SD - 44.1 femtoliters???MPV - 10.4 femtoliters???Nucleated RBC (Automated) - 0.1 #/100 WBC'S???Abs. NRBC - 0.0 k/mm3 CBC w/ Differential (11/26/2022) ???WBC - 22.8 k/mm3???RBC - 4.55 m/mm3???Hgb - 14.1 Gm/dL???Hct - 44.2 %???MCV - 97.1 femtoliters???MCH - 31.0 pg???MCHC - 31.9 g/dL???Platelet Count - 265 k/mm3???RDW-SD - 45.7 femtoliters???MPV - 11.5 femtoliters???Nucleated RBC (Automated) - 0.0 #/100 WBC'S???Abs. NRBC - 0.0 k/mm3???Abs. Neut - 19.6 k/mm3???Abs. Lymph - 1.7 k/mm3???Abs. [place] - 0.9 k/mm3???Abs. Eo - 0.0 k/mm3???Abs. Baso - 0.1 k/mm3???Neut % - 86.0 %???Lymph % - 7.3 %???[place] % - 3.9 %???Eos % - 0.0 %???Baso % - 0.3 %???Imm Gran - 2.5 %???Abs. Imm Gran - 0.6 k/mm3 Complete Urinalysis (11/26/2022) ???Appear/Color, Urine - YELLOW???Specific Chipley, Urine - 1.046???pH, Urine - 6.5???Albumin, Urine - 2+???Glucose, Urine - NEGATIVE???Ketones, Urine - NEGATIVE???Bilirubin, Urine - NEGATIVE???Hemoglobin, Urine - NEGATIVE???Nitrite, Urine - NEGATIVE???Leukocyte, Urine - NEGATIVE???Urobilinogen - 2mg/dL? ?WBC's, Urine - 1 /HPF? ?RBC's, Urine - 1 /HPF? ?Squamous Epith - <1 /HPF? ?Hyaline Cast - 1 LPF???Mucus - MODERATE Comprehensive Metabolic Panel (11/27/2022) ???Sodium - 140 mmol/L???Potassium - 4.9 mmol/L???Chloride - 102 mmol/L???Bicarbonate Level - 28 mmol/L???Anion Gap - 10???Glucose Level - 169 mg/dL???BUN - 21 mg/dL???Creatinine-Blood - 1.0 mg/dL???Estimated GFR Creatinine - 71 ML/MIN/1.73 M2???Calcium - 8.8 mg/dL???Protein, Total - 6.7 Gm/dL???Alb umin - 3.2 Gm/dL???AG Ratio - 0.9???Alkaline Phosphatase - 67 units/L???AST (SGOT) - 11 units/L???ALT (SGPT) - 6 units/L???Bilirubin, Total - 0.3 mg/dL COVID-19 (2019 Novel Coronavirus) PCR (11/30/2022) ???COVID-19 PCR Specimen Source - NASAL???COVID-19 PCR Result - NEGATIVE COVID-19 RNA POC (11/25/2022) ???COVID-19 POC Result - NEGATIVE Creatinine (11/29/2022) ???Creatinine-Blood - 0.8 mg/dL???Estimated GFR Creatinine - 86 ML/MIN/1.73 M2 Electrolytes (11/29/2022) ???Sodium - 140 mmol/L???Potassium - 4.6 mmol/L???Chloride - 97 mmol/L???Bicarbonate Level - 31 mmol/L???Anion Gap - 12 Glucose Level (11/29/2022) ???Glucose Level - 80 mg/dL GLUCOSE POC (12/01/2022) ???Glucose, POC - 110 mg/dL GLUCOSE POC CARTRIDGE (11/25/2022) ???Glucose (POC) POC Cartridge - 130 H + H (11/29/2022) ???Hgb - 15.0 Gm/dL???Hct - 45.9 % HEMATOCRIT POC CARTRIDGE (11/25/2022) ???Hematocrit (POC) POC Cartridge - 47 % HEMOGLOBIN POC CARTRIDGE (11/25/2022) ???Hemoglobin (POC) POC Cartridge - 16.0 Gm/dL High??Sensitivity??Troponin T (11/25/2022) ???High Sensitivity Troponin (HSTnT) - 10 ng/L HOLD GEL TUBE (12/01/2022) ???Hold Gel Top - SPECIMEN DISCARDED AFTER 1 WEEK INR (11/25/2022) ???INR - 1.1???Protime (PT) - 11.9 seconds Ionized Calcium (11/26/2022) ???Calcium, Ionized pH Corrected - 1.19 mmol/L Lactate Level (11/27/2022) ???Lactate - 1.3 mmol/L Lytes (11/28/2022) ???Sodium - 138 mmol/L???Potassium - 5.0 mmol/L???Chloride - 99 mmol/L???Bicarbonate Level - 26 mmol/L???Anion Gap - 13 Magnesium Level (11/26/2022) ???Magnesium - 2.1 mg/dL Phosphorus Level (11/26/2022) ???Phosphorus - 3.5 mg/dL POTASSIUM POC CARTRIDGE (11/25/2022) ???Potassium (POC) POC Cartridge - 3.9 mmol/L Serum Qualitative (11/25/2022) ??? Serum Qual - NEGATIVE ProBNP (11/25/2022) ???Nt-Probnp - 296 pg/mL RESP PATH PANEL W/COVID-19 (11/25/2022) ???Adenovirus by PCR - NEGATIVE???Coronavirus 229E by [...] - NEGATIVE???Bordetella Parapertussis by PCR - NEGATIVE SODIUM POC CARTRIDGE (11/25/2022) ???Sodium (POC) POC Cartridge - 137 mmol/L TSH with T4 Reflex (Adults Only) (11/25/2022) ???TSH - 0.98 uIU/mL Urine Creatinine (11/26/2022) ???Creatinine, Urine Random - 174.0 mg/dL Urine Sodium (11/26/2022) ???Sodium, Urine Random - 25 mmol/L Urine Urea Nitrogen (11/26/2022) ???Urea Nitrogen, Urine Random - 433.2 mg/dL VBG POC CARTRIDGE (11/25/2022) ???pH Venous (POC) POC Cartridge - 7.40???pCO2 Venous (POC) POC Cartridge - 53.6 mm Hg???pO2 Venous(POC) POC Cartridge - 39 mm Hg???Est Bicarbonate (POC) POC Cartridge - 32.9 mmol/L???% O2 Sat Venous (POC) POC Cartridge - 72???Specimen Type - Blood Gas - VENOUS Allergies (NKA means No Known Allergies) sulfamethoxazole??(itch) Problems Active Problems??(14) Arthritis of knees?? Asthma?? [facility] [phone]-[phone]?? Cholesteatoma of ear?? Complex ovarian cyst [...] Educational Leaflet Providered with your Discharge Instructions. Diet: Diabetes?? Amoxicillin/Clavulanate Oral Tablet?? Valuables and Belongings I fully understand and agree that [facility] accepts no responsibility for all my personal [...] Review of Valuable and Belonging List: With patient, With witness Date for Pt to Sign Valuables/Belongings: 11/27/22 22:49:00 ?? Other Discharge Information ? Case Management Discharge Plan?? Discharge Plan?? Discharge Agency Information?? Discharge Level of Care at Discharge: Homehealth/VNA Name of Agency #1: [facility] Discharge Rx Program: Discharge Prescription Program Service Categories #1: Physical Therapy, Residential Discharge Transportation Arranged: [facility] [address] [facility] ??[phone] Service Comments #1: [facility] will contact you 24/48hrs after discharge to arrange in home appointment. Please call number privided if you do not here from them within the provided time frame Mode of Transportation Arranged: Ambulance ?? Discharge Arranged Transport Date/Time: 12/01/22 14:30:00 ?? Discharge VNA/Hospice/Home Care: [facility] ? Pulmonary Rehab Status?? Pulmonary Rehab Discharge Status?? CPAP/BiPAP Mask Type: Full CPAP/BiPAP Mask Size: Medium Respiratory Rate: 18 br/min PEEP: 8 ? Common Emergency Awareness Tips IS IT [...] are strongly encouraged to quit. Please call [facility] [employer] Link at [phone] or [phone] ([phone]) or log in to [email or web address] for referrals to smoking cessation programs. ?? The National Suicide Prevention Hotline is available 21/05 if you or someone you know needs to find a reason to keep living. By calling 7-475-652-[employer] (9166) you'll be connected to a skilled, trained counselor at a crisis center in your area. INPATIENT DISCHARGE INSTRUCTIONS SIGNATURE PAGE JO-ANN TEMPLE Location:[facility] Registration Date and Time:11/26/2022 00:10 EST Primary Care Physician: Hazel Valadez DO, I JO-ANN TEMPLE, have received the above patient education materials/instructions and have verbalized understanding. If ambulance or transport services are being used I further acknowledge being given a choice of service. ?? If you need to contact me, please call me at this number: . Patient/Food And Nutrition Professor Name: Patient/Food And Nutrition Professor Signature: Relationship to Patient: Witness Name/Signature: Date: * aPvel Monson MD: PERFORM, SIGN, VERIFY Event Display: Patient Education Handout Authored Date: * Pavel Monson MD: PERFORM Event Display: Patient Education Leaflets Authored Date: Diet: Diabetes ?? [id number] Diet: Diabetes Food is an important tool that you can use to control diabetes and stay healthy. Eating well-balanced meals in the correct amounts will help you control your blood glucose levels and prevent low blood sugar reactions. It will also help you reduce the health risks of diabetes. There is no one specific diet that is right for everyone with diabetes and you can eat a variety of foods. But there are general guidelines to follow. A registered dietitian (JOHANN) will create a tailored diet approach that???s just right for you. They will also help you plan healthy meals and snacks. If you have any questions, call your dietitian for advice. Guidelines for success Talk with your healthcare provider before starting a diabetes diet or weight loss program. If you haven't talked with a dietitian yet, ask your provider for a referral. The following guidelines can help you succeed: ??? Select foods from the 6 food groups below. Your dietitian will help you find food choices within each group. He or she will also show you serving sizes and how many servings you can have at each meal. o Grains, beans, and starchy vegetables o Vegetables o Fruit o Milk or yogurt o Meat, poultry, fish, or tofu o Healthy fats ??? Check your blood sugar levels as directed by your provider. Take any medicine as prescribed by your provider. ??? Learn to read food labels and pick the right portion sizes. ??? Limit carbohydrates at each meal to help manage your diabetes. The carbohydrates you eat become glucose in the blood. This does not mean you can't eat carbohydrates. Talk with your healthcare provider about how many grams of carbohydrates are recommended for you at each meal. Eat 3 meals a day, at consistent times. Don't skip meals. If you are hungry between meals, eat a small, low-carbohydrate snack. ??? Talk with your healthcare provider if you drink alcohol. Alcohol can have unpredictable effects on blood glucose. It's also high in empty calories and can raise a type of blood fat called triglycerides. Drink water or calorie-free diet drinks instead. ??? Eat less fat to help lower your risk of heart disease. Use nonfat or low-fat dairy products and lean meats.Avoid fried foods. Use cooking oils that are unsaturated, such as olive, canola, or peanut oil. ???Don't eat foods with added salt. Salt can contribute to high blood pressure, which can cause heart disease. People with diabetes already have a risk for high blood pressure and heart disease. ??? Stay at a healthy weight. If you need to lose weight, cut down on your portion sizes. But never skip meals. Exercise is an important part of any weight management program. Talk with your provider about an exercise program that???s right for you. ??? For more information about the best diet plan for you, talk with an RD. To find an RD in your area, contact: o Academy of Nutrition and Dietetics at www.eatright.org o [place] at www.diabetes.org or 916-468-6828 o Association of Diabetes Care and Education Specialists at www.diabeteseducator.org/ ?? Last Reviewed Date: 2021 ?? [employer]. All rights reserved. This information is not intended as a substitute for professional medical care. Always follow your healthcare professional's instructions. ?? * Ermias MILLER, Pavel Brown: PERFORM Event Display: Patient Education Leaflets Authored Date: [id number] Amoxicillin/Clavulanate Oral Tablet ?? [id number] Amoxicillin/Clavulanate Oral Tablet Brands: Augmentin Uses For treating bacterial infection. ?? Instructions Take the medicine with food. Keep the medicine at room temperature. Avoid heat and direct light. It is important that you keep taking each dose of this medicine on time even if you are feeling well. If you forget to take a dose on time, take it as soon as you remember. If it is almost time for thenext dose, do not take the missed dose. Return to your normal schedule. Do not take 2 doses at one time. Tell your doctor and pharmacist about all your medicines. Include prescription and paof-xmi-dcpxjthteivnvyrk, vitamins, and herbal medicines. Keep using this medicine for the full number of days that it is prescribed. Do not stop the medicine even if you start to feel better. If you have diabetes and use urine glucose tests, this medicine may cause incorrect results. Pleasecheck with your doctor before making any changes to your diabetes treatment plan. ?? Cautions Tell your doctor and pharmacist if you ever had an allergic reaction to a medicine. Do not use the medication any more than instructed. Please tell your doctor if you have moderate to severe diarrhea while on this medicine. Do not treat the diarrhea with oxvz-kmt-[id number] diarrhea medicine. Tell the doctor or pharmacist if you are , planning to be , or . Do not start or stop any other medicines without first speaking to your doctor or pharmacist. Do not share this medicine with anyone who has not been prescribed this medicine. ?? Side Effects The following is a list of some common side effects from this medicine. Please speak with your doctor about what you should do if you experience these or other side effects. ??? diarrhea ??? nausea and vomiting ??? stomach upset or abdominal pain Call your doctor or get medical help right away if you notice any of these more serious side effects: ??? severe or persistent abdominal pain ??? severe, watery or bloody diarrhea ??? signs of liver damage (such as yellowing of eye or skin, dark urine, or unusual tiredness) ??? red, burning, or itchyskin ??? yeast infection of mouth ??? vaginal itching or discharge A few people may have an allergic reaction to this medicine. Symptoms can include difficulty breathing, skin rash, itching, swelling, or severe dizziness. If you notice any of these symptoms, seek medical help quickly. ?? Extra Please speak with your doctor, nurse, or pharmacist if you have any questions about this medicine. ?? [email or web address] IMPORTANT NOTE: This document tells you briefly how to take your medicine, but it does not tell youall there is to know about it. Your doctor or pharmacist may give you other documents about your medicine. Please talk to them if you have any questions. Always follow their advice. There is a more complete description of this medicine available in [employer]. Scan this code on your smartphone or tablet or use the web address below. You can also ask your pharmacist for a printout. If you have any questions, please ask your pharmacist. The display and use of this drug information is subject to Terms of Use. Copyright(c) 2021 [employer]. ?? 8620-6182 [employer]. All rights reserved. This information is not intended as a substitute for professional medical care. Always follow your healthcare professional's instructions. ?? * Event Display: Cardiac Rhythm Strips Authored Date: * BHSPowerscribe , CIS S: TRANSCRIBE Jonathan Garcia MD: MODIFY Event Display: Addendum Authored Date: [id number] There is also significant prominence of the retropharyngeal soft tissues with a hypodense area in the prevertebral area at the C2-C3 level in particular that could represent early abscess. Prevertebral soft tissues measure 2.4 cm in maximal dimension. Hypodense area raising possibility of early abscess may measure as large as 1 cm maximal thickness. On the previous examination from 06/11/2019, there is significant prominence of the prevertebral soft tissues as well, though I believe that the thickness has increased compared to that time. WSN: [id number] Ordering Physician: Yesenia Nelson Dictated By: Jonathan Garcia MD Dictated Date/Time: 11/25/22 11:49 p Reviewed By: Jonathan Garcia MD Signed By: Jonathan Garcia MD Signed Date/Time: 11/25/22 11:49 pm Transcribed By: CSCintia Transcribed Date/Time: 11/25/22 11:45 pm Hospital Progress note * Carlee Lam RN: PERFORM, SIGN, VERIFY, MODIFY, SIGN Event Display: Progress Note Hospital Authored Date: [id number] Patient: JO-ANN TEMPLE Age: 47 years Sex: Female : 1975 Associated Diagnoses: None Author: Carlee Lam RN Findings Narrative/Incidental Patient alert and oriented x3. Tele rhythm NSR. On 3L via NC. Lung sounds diminished. SOB with exertion. Trace edema in BLE. Patient on bariatric bed. 1 assist with bed chen. Patient on period, has menstral bleeding. Patient had PT eval, please see CIS. Scheduled meds administered. States pain and discomfort in epigastric area and cramping in abdomen, PRN oxycodone administered. Please see biophysical for further assessment. Hourly rounding in place, patients safety remained. Bed alarm on, bed in lowest position, and call wallace within reach. Patient being discharged home with services. Ambulance booked for 4pm, transferred to for discharge. Patient belongings in hand. . Discharge Information Case Management Discharge Plan : Case Management Discharge Plan Data 12/01/2022 12:36 EST Discharge Level of Care at Discharge Homehealth/VNA Discharge VNA/Hospice/Home Care [facility] Discharge Transportation Arranged [facility] [phone] [facility] Discharge Arranged Transport Date/Time 12/01/2022 14:30 Mode of Transportation Arranged Ambulance Name of Agency #1 [facility] Service Categories #1 Physical Therapy, Residential Service Comments #1 [facility] will contact you 24/48hrs after discharge to arrange in home appointment. Please call number privided if you do not here from them within the provided time frame Pulmonary Rehab Discharge : Pulmonary Rehab Discharge Status 11/30/2022 4:27 EST CPAP/BiPAP Mask Type Full CPAP/BiPAP Mask Size Medium 11/29/2022 23:27 EST CPAP/BiPAP Mask Type Full CPAP/BiPAP Mask Size Medium 11/29/2022 3:30 EST CPAP/BiPAP Mask Type Full CPAP/BiPAP Mask Size Medium 11/29/2022 0:05 EST CPAP/BiPAP Mask Type Full CPAP/BiPAP Mask Size Medium 11/28/2022 10:44 EST CPAP/BiPAP Mask Type Full CPAP/BiPAP Mask Size Small 11/27/2022 13:43 EST CPAP/BiPAP Mask Type Full CPAP/BiPAP Mask Size Medium 11/27/2022 13:00 EST PEEP 8 11/27/2022 12:00 EST PEEP 8 11/27/2022 11:27 EST PEEP 8 11/27/2022 11:00 EST PEEP 10 11/27/2022 10:00 EST PEEP 10 11/27/2022 9:00 EST PEEP 10 11/27/2022 8:49 EST PEEP 10 11/27/2022 8:00 EST PEEP 10 11/27/2022 6:00 EST PEEP 10 11/27/2022 5:00 EST PEEP 10 11/27/2022 4:51 EST PEEP 10 11/27/2022 3:00 EST PEEP 10 11/27/2022 2:00 EST PEEP 10 11/27/2022 1:00 EST PEEP 10 11/27/2022 0:45 EST PEEP 10 11/26/2022 23:00 EST PEEP 10 11/26/2022 22:00 EST PEEP 10 11/26/2022 21:00 EST PEEP 10 11/26/2022 20:08 EST PEEP 10 11/26/2022 19:00 EST PEEP 10 11/26/2022 18:00 EST PEEP 10 11/26/2022 17:00 EST PEEP 10 11/26/2022 16:37 EST PEEP 10 11/26/2022 16:00 EST PEEP 10 11/26/2022 15:00 EST PEEP 10 11/26/2022 14:00 EST PEEP 10 11/26/2022 13:00 EST PEEP 10 11/26/2022 12:52 EST PEEP 10 11/26/2022 12:00 EST PEEP 10 11/26/2022 11:00 EST PEEP 10 11/26/2022 10:00 EST PEEP 10 11/26/2022 9:00 EST PEEP 10 11/26/2022 8:32 EST PEEP 10 11/26/2022 7:00 EST PEEP 10 11/26/2022 6:00 EST PEEP 10 11/26/2022 5:00 EST PEEP 10 11/26/2022 4:00 EST PEEP 10 11/26/2022 3:33 EST PEEP 10 11/26/2022 3:30 EST PEEP 10 11/26/2022 3:28 EST PEEP 10 11/26/2022 2:48 EST PEEP 10 Rehabilitation Discharge : Rehab Discharge Index 12/01/2022 9:54 EST Walker: distance 20-50 11/29/2022 9:19 EST Comments on treatment indicated 47F s/p I&D of retropharyngeal abscess on 11/26 (Dr. Trejo). 400 lbs. PT for bed mob, trans, amb c RW, stairs. 8L O2 on IE. Dual POC at this time. Walker: distance < 10 Distance pt will ambulate >30' Full chart review completed Yes Hospital course Hospital course Other findings Mod complexity 2/2 PMH and reason for hospitalization Plan of care PT Gait training, Transfer training, Therapeutic exercise, Functional Activities, Balance training * Stacia WARREN, Lindsey: PERFORM, SIGN, VERIFY Event Display: Progress Note Hospital Authored Date: Patient: JO-ANN TEMPLE Age: 47 years Sex: Female : 1975 Associated Diagnoses: None Author: Stacia WARREN, Lindsey Findings Evaluation Pt is alert & oriented. Pt c/o generalized pain and menstrual cramps, PRN oxycodone administered - upon reassessment, pt resting comfortably. VSS on 3L nasal cannula. Pt reports 3L is baseline, pt did not wear her CPAP overnight. Scheduled nebs administered. Tele monitoring continues, pt tracing NSR. Cardiac diet maintained. BS AC/HS. Pt voiding in bedpan. Pt continent of both. LBM 2/. Pt is able to T&R independently. Not OOB. Bed alarm on and audible. POC explained, pt verbalized understanding. Hourly rounds. Safety maintained. 03:49. * Ermias MILLER, Pavel Brown: PERFORM Event Display: Progress Note Hospital Authored Date: Patient: ??JO-ANN TEMPLE ? Age:??47 Years?Sex:??Female?:??1975?? Subjective Hx noted still with ongoing menstrual bleeding with clots and associated cramping stable Hb throat pain significantly improved no breathing difficulty or odynophagia Review of Systems ?Constitutional: no fevers/chills ?Eyes: no pain, no vision changes ?ENT: no ear pain, no change in hearing ?Cardiovasc: no chest pain, no palpitations, no PND, no orthopnoea ?Resp: no cough, no sputum, no haemoptysis, no dyspnoea ?GI: no vomiting, no diarrhoea Objective Measurements?? Height: 149.86 cm (11/30/22) Weight: 171.5 kg (11/29/22) Dry Weight: 172.3 kg (11/26/22) Body Mass Index:??76.72 kg/m2??Critical (11/26/22) ? Vital Signs?? Temperature: 98.3 DegF (11/30/22 04:30:00) Temperature Route: Oral (11/30/22 04:30:00) Pulse Rate: 80 bpm (11/30/22 04:30:00) Heart Rate Monitored: 82 bpm (11/29/22 18:00:00) Respiratory Rate: 18 br/min (11/30/22 15:39:00) Systolic Blood Pressure: 128 mm Hg (11/30/22 04:30:00) Diastolic Blood Pressure: 64 mm Hg (11/30/22 04:30:00) Blood pressure sites: Arm, left (11/30/22 04:30:00) Mean Arterial Pressure: 85 mm Hg (11/30/22 04:30:00) Pulse Pressure: 64 mm Hg (11/30/22 04:30:00) Oxygen Saturation: 94 % (11/30/22 04:30:00) Liters per Minute: 3 L/min (11/30/22 04:30:00) Mode of Delivery (Oxygen): Nasal cannula (11/30/22 04:30:00) Early Warning Score: 2 (11/30/22 15:41:02) ? Intake/Output? 11/26 00:10 11/30 07:00 11/29 07:00 11/28 07:00 11/27 07:00 ?? 11/30 17:10 11/30 17:10 11/30 06:59 11/29 06:59 11/28 06:59 Intake ? 6383.3 ?954 ?840 ?400 ? 1015.4 Output ?86010 ?0 ? 1300 ? 2900 ? 3455 Net Total ?-3971.7 ?954 ? -460 ?-2500 ?-2439.6 ? Urine Count ? 10 ?3 ?3 ?3 ?1 ? Physical Exam Gen: no acute distress HEENT: normocephalic, atraumatic, moist mucous membranes Chest: CTA, no wheeze/crackles CVS: no M/G/R, no JVD Abdo: soft, mild suprapubic tenderness Ext: no oedema, no cyanosis or clubbing Neuro: no deficit Psych: WNL _ 72 Hour Antibiotic History Active Antibiotics Calendar Day Last Administered First Administered Amoxicillin-Clavulanate??1 tablet, By Mouth, 2 times a day ?1 11/30/2022 13:00 11/30/2022 13:00 ? Stopped Antibiotics Stop Date/Time Last Administered First Administered Ampicillin-Sulbactam??3 Gm, 100 mL/hr, IVPB, Every 6 hours 11/30/2022 11:58 11/30/2022 09:49 11/26/2022 04:10 ? Assessment/Plan Assessment:??47-year-old woman with a history of obesity, hypertension, type 2 diabetes, asthma, REBEL with CPAP on 3 L home oxygen, heart failure preserved ejection fraction who presented from home on11/25 to the ER with shortness of breath in the setting of possible recent URI and found to have global upper airway edema s/p attempted I/D of retropharyngeal abscess though no purulent material found and admitted to ICU due to needing to be intubated by ENT services at the OR. ? Acute on chronic hypoxic respiratory failure: Upper airway edema Leukocytosis Retropharyngeal abscess vs. other infectious etiology vs angioedema (pt on lisinopril), anaphylaxis ENT following. Also history of asthma, REBEL, and obesity hypoventilation on IVAPS at home. On home 3 L oxygen ??Was COVID-positive on arrival and repeat COVID-negative. Patient tells me she had COVID approximately 4 weeks recovered. ??was treated with dexamethasone - now discontinued ??transitione Unasyn??to??PO augmentin -??would complete 10 day course ??f/u blood cx (negative) ??scheduled duoneb ??budesonide inhaler ??supplemental 02 via nc to keep sats >92, daily weans ??PT recommending rehab ?? Acute Kidney injury, resolved ??Creatinine elevated from 0.8-1.3., Resolved ??Monitor creatinine. ? DM/Hyperglycemia: ??Lantus 50 at night. ??SSI ??Hypoglycemic orders ?? Heart failure preserved ejection fraction ??reintroduce lasix as tolerated ??hold lisinopril ?? Menstruation with blood clot patient reports that her periods tend to be irregular and heavy Hb stable was heavier in the setting of receiving enoxaparin will cancel US at this time outpatient follow up with gynaecology ?? Grief ??Social work consult for ongoing support ?? Diet: cardiac/diabetic Code Status: FULL--->Justin Hines [phone] who is healthcare proxy and requests to not, have other members updated. DVT PPX: d/c enoxaparin given bleeding. order pneumoboots Disposition: pending rehab placement ? CT Head WO contrast * [facility]SPowerscribe , CIS S: TRANSCRISteve Mejía MD: VERIFY Event Display: Result: Authored Date: [id number] CT Head/Brain W/O Contrast INDICATION: Reason: Headache(s); neck pain, muffled voice, headache; Clinical Question(s): Hematoma TECHNIQUE: Noncontrast head CT using axial technique and reconstructed in axial and coronal planes.Iterative reconstruction techniques are used to optimize dose and image quality. CTDIvol Head: 47.90 mGy, DLP Head: 773 mGy*cm. COMPARISON: 08/18/2016 FINDINGS: Study limited by patient motion artifact. Boiler Operator Helper view findings, lines and tubes: None. BRAIN AND EXTRA-AXIAL SPACES: No parenchymal hemorrhage, midline shift, or mass effect. Maldonado-white matter differentiation is wellpreserved. No acute infarct. No paranasal sinus air-fluid level. Postsurgical changes from right partial mastoidectomy. No subarachnoid hemorrhage. No subdural or epidural collection. CALVARIUM, SKULL BASE, AND SOFT TISSUES: No fractures or suspicious bony lesions. The paranasal sinuses and mastoid air cells are clear. Visualized orbits and globes are intact. The extracranial soft tissues are unremarkable. IMPRESSION: No acute intracranial pathology. WSN: [id number] Ordering Physician: Yesenia Nelson Dictated By: Steve Delarosa MD Dictated Date/Time: 11/25/22 11:20 p Reviewed By: Steve Delarosa MD Signed By: Steve Delarosa MD Signed Date/Time: 11/25/22 11:20 pm Transcribed By: JACOB Transcribed Date/Time: 11/25/22 11:[address] Neck W contrast IV * [facility]SPowerscribe , CIS S: TRANSCRIBE Jonathan Garcia MD: VERIFY Event Display: Result: Authored Date: [id number] CT Soft Tissue Neck W/ Contrast INDICATION/CLINICAL QUESTION: Reason: Hoarseness; muffled voice, neck pain; Clinical Question(s): Abscess / Abscess. TECHNIQUE: Spiral CT neck with IV contrast formatted in 3 planes. 100 cc of Omnipaque 300 was administered intravenously. Weight-based protocol using automatic tube modulation was used to optimize exposure parameters. CTDIvol Body: 16.70 mGy, DLP Body: 541 mGy*cm. COMPARISON: 06/11/2019 FINDINGS: There is prominent adenoidal enlargement narrowing the nasopharynx. There is also thickening of thesoft palate as well as prominence of the lymphoid tissue in the posterior oropharynx. Uvula appearsenlarged. There is marked narrowing of the oropharynx. I do not see evidence of discrete abscess. There is enlargement of multiple lymph nodes involving both left and right neck most likely reactive.I do not see evidence of bony abnormality. IMPRESSION: Marked narrowing of the nasopharynx, oropharynx, and hypopharyngeal region related to prominent lymphoid tissue as well as enlargement of the soft palate and uvula. No discrete abscess identified. WSN: [id number] Ordering Physician: Yesenia Nelson Dictated By: Jonathan Garcia MD Dictated Date/Time: 11/25/22 11:33 p Reviewed By: Jonathan Garcia MD Signed By: Jonathan Garcia MD Signed Date/Time: 11/25/22 11:33 pm Transcribed By: JACOB Transcribed Date/Time: 11/25/22 11:28 pm Portable XR Chest Views * IRNEE Perkins S: Nicola Gonzalez MD, V: VERIFY Event Display: Result: Authored Date: [id number] Chest Portable Reason: CHF; Clinical Question(s): Asthma COMPARISON: Multiple prior examinations the most recent dated 11/26/2022 at 8:17 AM. FINDINGS: Slightly limited examination due to the patient's body habitus. LINES AND TUBES: Endotracheal tube and enteric tube remain in place unchanged. LUNGS AND PLEURA: There is probably mild asymmetric pulmonary vascular prominence on the right side with probable mild interstitial edema. There is minimal fissural fluid involving the right minor fissure. Unchanged or slightly improving. improving. Probable small left pleural effusion. No pneumothorax. HEART, MEDIASTINUM AND MARY: Mild prominence of the cardiomediastinal silhouette unchanged. BONES AND SOFT TISSUES: No acute abnormality. IMPRESSION: Mild asymmetric prominence of the pulmonary vascularity on the right side with probable minimal interstitial edema and fissural fluid essentially unchanged. WSN: [id number] Ordering Physician: William Kumar Dictated By: Nicola Prakash MD, V Dictated Date/Time: 11/27/22 9:49 am Reviewed By: Nicola Prakash MD, V Signed By: Nicola Prakash MD, V Signed Date/Time: 11/27/22 9:49 am Transcribed By: JACOB Transcribed Date/Time: 11/27/22 9:46 am * Gregorio CIS S: Josie Cruz MD: VERIFY Event Display: Result: Authored Date: [id number] Chest Portable Reason: Other:; dyspnea; Clinical Question(s): Pneumonia COMPARISON: 09/05/2022 FINDINGS: LINES AND TUBES: None. LUNGS AND PLEURA: Examination is limited by patient body habitus. Clear lungs. Normal pulmonary vascularity. No pleural effusion. No pneumothorax. HEART, MEDIASTINUM AND MARY: Heart is normal in size. Normal mediastinal and hilar contour. BONES AND SOFT TISSUES: No acute abnormality. IMPRESSION: No acute abnormality. WSN: [id number] Ordering Physician: Yesenia Nelson Dictated By: Josie Salmeron MD Dictated Date/Time: 11/26/22 8:15 am Reviewed By: Josie Salmeron MD Signed By: Josie Salmeron MD Signed Date/Time: 11/26/22 8:15 am Transcribed By: JACOB Transcribed Date/Time: 11/26/22 8:14 am * PANTERASPblankscsapna , CIS S: TRANSCRIJosie Daniel MD: VERIFY Event Display: Result: Authored Date: [id number] Chest Portable Reason: Tube Placement; newly intubated COMPARISON: 11/25/2022, 09/05/2022 FINDINGS: LINES AND TUBES: Endotracheal tube tip is 3.8 cm above the sohail. Enteric tube courses below the hemidiaphragm, into the stomach and off of the image inferiorly. LUNGS AND PLEURA: The lungs are hypoinflated with bronchovascular crowding. New linear opacity in the right midlung may represent atelectasis versus small amount of effusion in the minor fissure. No pneumothorax. HEART, MEDIASTINUM AND MARY: Heart is normal in size. Normal mediastinal and hilar contour. BONES AND SOFT TISSUES: No acute abnormality. IMPRESSION: Satisfactory tube and line position. Right midlung atelectasis versus trace fluid in the minor fissure. WSN: [id number] Ordering Physician: Ugo Nolen Dictated By: Josie Salmeron MD Dictated Date/Time: 11/26/22 9:21 am Reviewed By: Josie Salmeron MD Signed By: Josie Salmeron MD Signed Date/Time: 11/26/22 9:21 am Transcribed By: JACOB Transcribed Date/Time: 11/26/22 9:14 am * PANTERASPowerscribe , CIS S: TRANSCRIJosie Daniel MD: VERIFY Event Display: Result: Authored Date: [id number] Chest Portable Reason: Shortness of Breath; Clinical Question(s): Pneumonia COMPARISON: 11/26/2022, 11/25/2022 FINDINGS: LINES AND TUBES: Enteric tube courses into the stomach and off the plane of the image inferiorly. Endotracheal tube tip appears to be 4.6 cm above the sohail. With evaluation limited secondary to technique. LUNGS AND PLEURA: The examination is overpenetrated, limiting evaluation of the lungs. Grossly stable right midlung linear opacity. Endotracheal tube is not well seen HEART, MEDIASTINUM AND MARY: Stable enlargement of the cardiac silhouette. BONES AND SOFT TISSUES: No acute abnormality. IMPRESSION: Enteric tube courses into the stomach, tip not included on this exam. Due to overpenetration evaluation of lungs is limited. WSN: [id number] Ordering Physician: William Kumar Dictated By: Josie Salmeron MD Dictated Date/Time: 11/26/22 2:20 pm Reviewed By: Josie Salmeron MD Signed By: Josie Salmeron MD Signed Date/Time: 11/26/22 2:20 pm Transcribed By: JACOB Transcribed Date/Time: 11/26/22 2:17 pm Patient Care team information Care Team Personnel Name: Jayna Sandhu RN Position: [facility] RN Member Role: Primary Care Nurse Name: Maty Valencia RN Position: [facility] RN Member Role: Primary Care Nurse Name: Roger Peña RN Position: [facility] RN Supv Member Role: Primary Care Nurse Name: Mihir Jackson RN Position: [facility] RN Member Role: Primary Care Nurse Name: Tessy Jaramillo RN Position: [facility] RN Member Role: Primary Care Nurse Name: Danya Roman RN Position: [facility] AMB Nurse Member Role: Primary Care Nurse Name: Ashley Brownlee RN Position: [facility] ED RN W/OE and Tasks Member Role: Primary Care Nurse Name: Becca Enrique RN Position: [facility] RN Member Role: Primary Care Nurse Name: Jammie Perry RN Position: [facility] RN Member Role: Primary Care Nurse Name: Elma Caruso (INSTR) Position: S RN Member Role: Primary Care Nurse Name: Amanda Huerta RN Position: [facility] RN Member Role: Primary Care Nurse Name: Yessica Stock Position: S RN Member Role: Primary Care Nurse Name: Hazel Valadez DO Position: S Resident Member Role: PCP Address: Address: [address] [place] [address] [place] [address]- Name: Radha Bravo RN Position: [facility] RN Member Role: Primary Care Nurse Name: Juli Calles RN Position: [facility] RN Member Role: Primary Care Nurse Name: Romulo Najera MD Position: [facility] ED Medicine MD Member Role: ED Attending Physician Address: Address: [address] [place] [address] Name: Dennise Arizmendi RN Position: [facility] ED RN W/OE and Tasks Member Role: Patient Care Provider Name: Zulay Scales Position: [facility] ED OA Charge Member Role: ED Associate Name: Fransisco Willoughby MD Position: [facility] Resident Member Role: Chart Review Address: Address: [address] [place] [address]- Name: Brianne Bender Position: [facility] ED TA [facility] Member Role: Ict Sales Assistant Care Team Related Persons Name: ALICJA MCKEONRA Address: [place] [address] Name: LUCITA TEMPLE Address: home Name: LARA TEMPLE Address: home [address] [place] [id number] Name: JUSTIN HINES
--- OUTSIDE RECORDS SUMMARY | 2024-04-04 10:11 | XMS_ITS | Continuity of Care Document ---
Author Organization [facility] Address [address] [place] [address]- Care Team Providers Care Electric Arc Welder Name Role Phone Hazel Valadez DO Primary Care Physician [facility]): [facility] - 09/08/23 [facility] [address] [place] [id number] Allergies, Adverse Reactions, Alerts Substance [...] Reason: Med Not Available 2Result Comment: [10/30/2014] [id number] 3Admin Note: VIS GIVEN DATED: 04/29/12 4Admin Note: vis given 05/23/11 5Admin Note: VIS GIVEN-DATED 06/07/10 6Admin Note: vis give dated 08/03/09 7Admin Note: VIS GIVEN VIS DATE 05/08/06 Medications Advair Diskus 250 mcg-50 mcg inhalation powder 1, puffs, Inhalation, 2 times a day, # 28 each, Refills 0, Tot. Refills 0, Maintenance, 09/06/23 14:10:00 EST, Powder, Route to Pharmacy Electronically, [id number], [facility] #[id number], 153, cm, 08/19/23 2:04:00 EDT,... Start Date: 09/06/23 Status: Ordered albuterol 0.083% inhalation solution 3 mL = 2.5 mg, Inhalation, Every 6 hours, # 360 mL, 11 Refills, Maintenance, 09/06/23 8:33:00 EST, Solution, [facility] #[id number], 153, cm, 08/19/23 2:04:00 EDT, Height, 171.8, [...] 03/31/23 21:58:00 EDT, Route to Pharmacy Electronically, [facility] #[id number], Partial fill upon patient request if the [...] 01/07/25 17:08:00 EDT, Route to Pharmacy Electronically, [facility] #[id number], 149.86, cm, 02/09/23 15:52:00 EDT, Height, 172.3, kg, 11/26/22 5:4... Start Date: 01/07/25 Stop Date: 12/23/27 Status: Ordered furosemide 40 mg oral tablet 40 mg, 1, tablet, By Mouth, 2 times a day, for 90 days, # 180 tablet, Refills 11, Tot. Refills 11, Hard Stop 01/07/25 17:08:00 EDT, 01/23/22 17:08:00 EDT, Route to Pharmacy Electronically, [facility] #[id number], 152, cm, 06/17/21 8:41:00 EDT, He... Start Date: 01/23/22 Stop Date: 01/07/25 Status: Ordered gabapentin 100 mg oral capsule 100 mg, 1, capsule, By Mouth, 3 times a day, # 90 capsule, Refills 0, Tot. Refills 0, Maintenance, 12/14/22 17:21:00 EST, Route to Pharmacy Electronically, [facility] #[id number], Partial fill upon patient request if the prescription is for a kelly... Start Date: 12/14/22 Status: Ordered ibuprofen 800 mg oral tablet 800 mg, 1, tablet, By Mouth, 3 times a day, for pain with food or milk, # 30 tablet, Refills 0, Tot. Refills 0, Maintenance, 02/09/23 17:06:00 EDT, Route to Pharmacy Electronically, [facility] #04005, Partial fill upon patient request if th... Start Date: 02/09/23 Status: Ordered metFORMIN 1000 mg oral tablet 1 tablet = 1,000 mg, By Mouth, 2 times a day, # 60 tablet, 11 Refills, Maintenance, 07/12/22 13:42:00 EDT, Tablet, [facility] #78157, cancel previous metformin scripts, 152, cm, 07/12/22 13:07:00 EDT, Height, 175.5, kg, 08/09/20 0:18:00 EDT,... Start Date: 07/12/22 Status: Ordered multivitamin Multiple Vitamins oral capsule 1 capsule, By Mouth, Daily, # 30 capsule, 0 Refills, Maintenance, 09/06/23 8:33:00 EST, Capsule, [facility] #[id number], Partial fill upon patient request if the [...] 2 Refills, Maintenance, 07/17/22 16:56:00 EDT, Capsule, [facility] #[id number], Partial fill upon patient request if the [...] Confirmed Active DMII Confirmed Active 1DrRyder Wade [phone], [place]. Dx 06/07/09 Social History Social History Type Response Smoking Status Former smoker, quit more than 30 days ago entered on: 06/11/19 Sex Patient Care team information Care Team Personnel Name: Becca Crain RN Position: [facility] RN Member Role: Primary Care Nurse Name: Jayna Sandhu RN Position: S RN Member Role: Primary Care Nurse Name: Maty Valencia RN Position: S RN Member Role: Primary Care Nurse Name: Roger Peña RN Position: [facility] RN Supv Member Role: Primary Care Nurse Name: Mihir Jackson RN Position: S RN Member Role: Primary Care Nurse Name: Danya Roman RN Position: [facility] SN RN Member Role: Primary Care Nurse Name: Ashley Brownlee RN Position: [facility] ED RN W/OE and Tasks Member Role: Primary Care Nurse Name: Elma Caruso (INSTR) Position: [facility] RN Member Role: Primary Care Nurse Name: Amanda Huerta RN Position: [facility] RN Member Role: Primary Care Nurse Name: Yessica Stock Position: [facility] RN Member Role: Primary Care Nurse Name: Hazel Valadez DO Position: [facility] Resident Member Role: PCP Address: Address: [address] [place] [address] Adult [place], [place] [address] Name: Juli Calles RN Position: [facility] RN Member Role: Primary Care Nurse Care Team Related Persons Name: NABILA OQUENDO Name: ZULEIMA MCKEON Address: [place] [address] Name: LUCITA TEMPLE Address: home Name: LARA TEMPLE Address: home [address] [place] [address] Name: JUSTIN HINES
--- OUTSIDE RECORDS SUMMARY | 2024-04-04 10:11 | XMS_ITS | Continuity of Care Document ---
Author Organization [facility] Address [address] [place] [address]- Care Team Providers Care Smoking Pipe Coater Name Role Phone Allyson ARMSTRONG Hazel Primary Care Physician [phone] [facility] 07[facility]23 - 08/12/23 [facility] [address] [place] [id number]- Allergies, Adverse Reactions, Alerts Substance Reaction Severity [...] Reason: Med Not Available 2Result Comment: [10/30/2014] [id number] 3Admin Note: VIS GIVEN DATED: 04/29/12 4Admin Note: vis given 05/23/11 5Admin Note: VIS GIVEN-DATED 06/07/10 6Admin Note: vis give dated 08/03/09 7Admin Note: VIS GIVEN VIS DATE 05/08/06 Medications albuterol 0.083% inhalation solution 3 mL = 2.5 mg, Inhalation, Every 6 hours, # 360 mL, 11 Refills, Maintenance, 07/17/22 11:50:00 EDT,Solution, [facility] #[id number], 152, cm, 07/12/22 13:07:00 EDT, Height, 175.5, [...] 03/31/23 21:58:00 EDT, Route to Pharmacy Electronically, [facility] #[id number], Partial fill upon patient request if the [...] ... Start Date: 07/12/22 Status: Ordered Freestyle Jodren Monitor See Instructions, # 1 each, Maintenance, [...] 01/07/25 17:08:00 EDT, Route to Pharmacy Electronically, [facility] #[id number], 149.86, cm, 02/09/23 15:52:00 EDT, Height, 172.3, kg, 11/26/22 5:4... Start Date: 01/07/25 Stop Date: 12/23/27 Status: Ordered furosemide 40 mg oral tablet 40 mg, 1, tablet, By Mouth, 2 times a day, for 90 days, # 180 tablet, Refills 11, Tot. Refills 11, Hard Stop 01/07/25 17:08:00 EDT, 01/23/22 17:08:00 EDT, Route to Pharmacy Electronically, [facility] #05876, 152, cm, 06/17/21 8:41:00 EDT, He... Start Date: 01/23/22 Stop Date: 01/07/25 Status: Ordered gabapentin 100 mg oral capsule 100 mg, 1, capsule, By Mouth, 3 times a day, # 90 capsule, Refills 0, Tot. Refills 0, Maintenance, 12/14/22 17:21:00 EST, Route to Pharmacy Electronically, [facility] #[id number], Partial fill upon patient request if the prescription is for a kelly... Start Date: 12/14/22 Status: Ordered ibuprofen 800 mg oral tablet 800 mg, 1, tablet, By Mouth, 3 times a day, for pain with food or milk, # 30 tablet, Refills 0, Tot. Refills 0, Maintenance, 04/14/23 17:06:00 EDT, Route to Pharmacy Electronically, [facility] #80152, Partial fill upon patient request if th... Start Date: 02/09/23 Status: Ordered metFORMIN 1000 mg oral tablet 1 tablet = 1,000 mg, By Mouth, 2 times a day, # 60 tablet, 11 Refills, Maintenance, 07/12/22 13:42:00 EDT, Tablet, [facility] #19332, cancel previous metformin scripts, 152, cm, 07/12/22 13:07:00 EDT, Height, 175.5, kg, 08/09/20 0:18:00 EDT,... Start Date: 07/12/22 Status: Ordered multivitamin Multiple Vitamins oral capsule 1 capsule, By Mouth, Daily, # 30 capsule, 0 Refills, Maintenance, 03/23/23 7:59:00 EDT, Capsule, [facility] #01370, Partial fill upon patient request if the [...] 11 Refills, Maintenance, 04/21/22 12:34:00 EDT, Powder, [facility] #39094, Partial fill upon patient request if the prescription is for a schedule II opioid drug., 1 puffs... Start Date: 04/21/22 Stop Date: 04/16/23 Status: Ordered Trulicity Pen 0.75 mg/0.5 mL subcutaneous solution 0.5 mL = 0.75 mg, Subcutaneous Injection, Every week, rotate injection sites, # 2 mL, 3 Refills, Maintenance, 07/12/22 14:01:00 EDT, Solution, [facility] #[id number], Partial fill upon patient request if the prescription is for a schedule II opio... Start Date: 07/12/22 Status: Ordered Vitamin D3 2000 intl units oral capsule 1 capsule = 2,000 International_Units, By Mouth, Daily, # 60 capsule, 2 Refills, Maintenance, 07/17/22 16:56:00 EDT, Capsule, [facility] #74691, Partial fill upon patient request if the [...] Confirmed Active DMII Confirmed Active 1DrRyder Wade [phone], [place]. Dx 06/07/09 Social History Social History Type Response Smoking Status Former smoker, quit more than 30 days ago entered on: 06/11/19 Sex Patient Care team information Care Team Personnel Name: Becca Crain RN Position: S RN Member Role: Primary Care Nurse Name: Jayna Sandhu RN Position: S RN Member Role: Primary Care Nurse Name: Maty Valencia RN Position: [facility] RN Member Role: Primary Care Nurse Name: Roger Peña RN Position: [facility] RN Supv Member Role: Primary Care Nurse Name: Mihir Jackson RN Position: S RN Member Role: Primary Care Nurse Name: Danya Roman RN Position: [facility] SN RN Member Role: Primary Care Nurse Name: Kem RNAshley Position: [facility] ED RN W/OE and Tasks Member Role: Primary Care Nurse Name: Zuly THOMSON) Elma Position: [facility] RN Member Role: Primary Care Nurse Name: Amanda Huerta RN Position: [facility] RN Member Role: Primary Care Nurse Name: Yessica Stock Position: [facility] RN Member Role: Primary Care Nurse Name: Hazel Valadez DO Position: [facility] Resident Member Role: PCP Address: Address: [address] [place] [address] [place] [address]- Name: Juli Calles RN Position: [facility] RN Member Role: Primary Care Nurse Care Team Related Persons Name: ZULEIMA MCKEON Address: [place] [address] Name: LUCITA TEMPLE Address: home Name: LARA TEMPLE Name: JUSTIN HINES
--- OUTSIDE RECORDS SUMMARY | 2024-04-04 10:11 | XMS_ITS | Continuity of Care Document ---
Author Organization [facility] Address [address] [place] [address]- Care Team Providers Care Forest Fire Prevention Manager Name Role Phone Hazel Valadez DO Primary Care Physician [facility]): [facility] - 08/11/22 [facility] [address] [place] [id number] Attending Physician: Admtr, Vannesa Admitting Physician: AdmtrVannesa Referring Physician: Admtr, Ar8 [...] Reason: Med Not Available 3Result Comment: [10/30/2014] [id number] 4Admin Note: VIS GIVEN DATED: 04/29/12 5Admin Note: vis given 05/23/11 6Admin Note: VIS GIVEN-DATED 06/07/10 7Admin Note: vis give dated 08/03/09 8Admin Note: VIS GIVEN VIS DATE 05/08/06 Medications albuterol 0.083% inhalation solution 3 mL = 2.5 mg, Inhalation, Every 6 hours, # 360 mL, 11 Refills, Maintenance, 07/17/22 11:50:00 EDT,Solution, [facility] #[id number], 152, cm, 07/12/22 13:07:00 EDT, Height, 175.5, kg, 08/09/20 0:18:00 EDT, Dry Weight Start Date: 07/17/22 Stop Date: 07/12/23 Status: Ordered albuterol CFC free 90 mcg/inh inhalation aerosol 2, puffs, Inhalation, 4 times a day, PRN, FOR WHEEZING AND SHORTNESS OF BREATH, # 1 each, Refills 5, Tot. Refills 5, Maintenance, 08/24/21 20:48:00 EDT, Route to Pharmacy Electronically, [id number], [facility] #[id number]... Start Date: 08/24/21 Stop Date: 02/20/22 [...] 01/23/22 17:08:00 EDT, Route to Pharmacy Electronically, [facility] #[id number], 152, cm, 06/17/21 8:41:00 EDT, Height, 175.5, kg, 08/09/20 0:18:00... Start Date: 01/23/22 Stop Date: 01/07/25 Status: Ordered gabapentin 100 mg oral capsule 100 mg, 1, capsule, By Mouth, 3 times a day, # 90 capsule, Refills 0, Tot. Refills 0, Maintenance, 07/12/22 14:00:00 EDT, Route to Pharmacy Electronically, [facility] #[id number], Partial fill upon patient request if the prescription is for a kelly... Start Date: 07/12/22 Status: Ordered hydrOXYzine hydrochloride 25 mg oral tablet 1 tablet = 25 mg, By Mouth, 4 times a day, PRN for anxiety, # 40 tablet, 1 Refills, Maintenance, 07/12/22 13:42:00 EDT, Tablet, [facility] #[id number], Partial fill upon patient request if the prescription is for a schedule II opioid drug., 152,... Start Date: 07/12/22 Stop Date: 09/10/22 Status: Ordered lisinopril 5 mg oral tablet 5 mg, 1, tablet, By Mouth, Daily, # 30 tablet, Refills 2, Tot. Refills 2, Maintenance, 07/17/22 17:03:00 EDT, Route to Pharmacy Electronically, [facility] #[id number], Please disregard 10mg dosing, 152, cm, 07/12/22 13:07:00 EDT, Height, 175.5, k... Start Date: 07/17/22 Status: Ordered metFORMIN 1000 mg oral tablet 1 tablet = 1,000 mg, By Mouth, 2 times a day, # 60 tablet, 11 Refills, Maintenance, 07/12/22 13:42:00 EDT, Tablet, [facility] #[id number], cancel previous metformin scripts, 152, cm, 07/12/22 [...] 10 Refills, Maintenance, 10/14/20 15:09:00 EST, Tablet, [facility] #[id number], 152, cm, 08/13/20 13:28:00 EDT, Height, 175.5, [...] 11 Refills, Maintenance, 04/21/22 12:34:00 EDT, Powder, [facility] #[id number], Partial fill upon patient request if the prescription is for a schedule II opioid drug., 1 puffs... Start Date: 04/21/22 Stop Date: 04/16/23 Status: Ordered Trulicity Pen 0.75 mg/0.5 mL subcutaneous solution 0.5 mL = 0.75 mg, Subcutaneous Injection, Every week, rotate injection sites, # 2 mL, 3 Refills, Maintenance, 07/12/22 14:01:00 EDT, Solution, [facility] #[id number], Partial fill upon patient request if the prescription is for a schedule II opio... Start Date: 07/12/22 Status: Ordered Vitamin D3 2000 intl units oral capsule 1 capsule = 2,000 International_Units, By Mouth, Daily, # 60 capsule, 2 Refills, Maintenance, 07/17/22 16:56:00 EDT, Capsule, [facility] #37016, Partial fill upon patient request if the [...] Confirmed Active DMII Confirmed Active 1DrRyder Wade [phone], Norma. Dx 06/07/09 Social History Social History Type Response Smoking Status Former smoker, quit more than 30 days ago entered on: 06/11/19 Sex Patient Care team information Personnel Name: Hazel Valadez DO Address: Address: [address] [place] [address] [place] [address]-
--- OUTSIDE RECORDS SUMMARY | 2024-04-04 10:11 | XMS_ITS | Continuity of Care Document ---
Author Organization [facility] Address [address] [place] [address]- Care Team Providers Care Bullet Maker Name Role Phone Allyson ARMSTRONG Hazel Primary Care Physician [facility] 08[facility]22 - 10/01/22 [facility] [address] [place] [address]- Attending Physician: Not on Staff, Attending MD [...] Reason: Med Not Available 3Result Comment: [10/30/2014] [id number] 4Admin Note: VIS GIVEN DATED: 04/29/12 5Admin Note: vis given 05/23/11 6Admin Note: VIS GIVEN-DATED 06/07/10 7Admin Note: vis give dated 08/03/09 8Admin Note: VIS GIVEN VIS DATE 05/08/06 Medications albuterol 0.083% inhalation solution 3 mL = 2.5 mg, Inhalation, Every 6 hours, # 360 mL, 11 Refills, Maintenance, 07/17/22 11:50:00 EDT,Solution, [facility] #[id number], 152, cm, 07/12/22 13:07:00 EDT, Height, 175.5, [...] 01/23/22 17:08:00 EDT, Route to Pharmacy Electronically, [facility] #[id number], 152, cm, 06/17/21 8:41:00 EDT, Height, 175.5, kg, 08/09/20 0:18:00... Start Date: 01/23/22 Stop Date: 01/07/25 Status: Ordered gabapentin 100 mg oral capsule 100 mg, 1, capsule, By Mouth, 3 times a day, # 90 capsule, Refills 0, Tot. Refills 0, Maintenance, 07/12/22 14:00:00 EDT, Route to Pharmacy Electronically, [facility] #[id number], Partial fill upon patient request if the prescription is for a kelly... Start Date: 07/12/22 Status: Ordered lisinopril 5 mg oral tablet 5 mg, 1, tablet, By Mouth, Daily, # 30 tablet, Refills 2, Tot. Refills 2, Maintenance, 07/17/22 17:03:00 EDT, Route to Pharmacy Electronically, [facility] #[id number], Please disregard 10mg dosing, 152, cm, 07/12/22 13:07:00 EDT, Height, 175.5, k... Start Date: 07/17/22 Status: Ordered metFORMIN 1000 mg oral tablet 1 tablet = 1,000 mg, By Mouth, 2 times a day, # 60 tablet, 11 Refills, Maintenance, 07/12/22 13:42:00 EDT, Tablet, [facility] #21725, cancel previous metformin scripts, 152, cm, 07/12/22 [...] 09/01/22 15:06:00 EDT, Route to Pharmacy Electronically, [facility] #[id number], Partial... Start Date: 09/01/22 Status: Ordered rolling [...] 11 Refills, Maintenance, 04/21/22 12:34:00 EDT, Powder, [facility] #[id number], Partial fill upon patient request if the prescription is for a schedule II opioid drug., 1 puffs... Start Date: 04/21/22 Stop Date: 04/16/23 Status: Ordered Trulicity Pen 0.75 mg/0.5 mL subcutaneous solution 0.5 mL = 0.75 mg, Subcutaneous Injection, Every week, rotate injection sites, # 2 mL, 3 Refills, Maintenance, 07/12/22 14:01:00 EDT, Solution, [facility] #07879, Partial fill upon patient request if the prescription is for a schedule II opio... Start Date: 07/12/22 Status: Ordered Vitamin D3 2000 intl units oral capsule 1 capsule = 2,000 International_Units, By Mouth, Daily, # 60 capsule, 2 Refills, Maintenance, 07/17/22 16:56:00 EDT, Capsule, [facility] #65066, Partial fill upon patient request if the [...] desaturation during sleep 75% in 2011 Confirmed 2012 Active Heart failure with preserved [...] Severe obesity Confirmed Active DMII Confirmed Active 1Dr. Tunde Petlucia [phone], [place]. Dx 06/07/09 Social History Social History Type Response Smoking Status Former smoker, quit more than 30 days ago entered on: 06/11/19 Sex Patient Care team information Care Team Personnel Name: Maty Valencia RN Position: [facility] RN Member Role: Primary Care Nurse Name: Danya Roman RN Position: [facility] AMB Nurse Member Role: Primary Care Nurse Name: Ashley Brownlee RN Position: [facility] ED RN W/OE and Tasks Member Role: Primary Care Nurse Name: Becca Enrique RN Position: [facility] RN Member Role: Primary Care Nurse Name: Elma Caruso (INSTR) Position: [facility] RN Member Role: Primary Care Nurse Name: Amanda Huerta RN Position: [facility] RN Member Role: Primary Care Nurse Name: Hazel Valadez DO Position: [facility] Resident Member Role: PCP Address: Address: [address] [place] [address] [place] [address]- Name: Juli Calles RN Position: [facility] RN Member Role: Primary Care Nurse Care Team Related Persons Name: ELIANAANTHONY ZULEIMA Address: [place] [address] Name: LUCITA TEMPLE Address: home [address] [place] [id number] Name: LARA TEMPLE Address: home [address] [place] [address] Name: JUSTIN HINES
--- OUTSIDE RECORDS SUMMARY | 2024-04-04 10:11 | XMS_ITS | Continuity of Care Document ---
Author Organization [facility] Address [address] [place] [address]- Care Team Providers Care Loan Interviewer Name Role Phone Marta Valadez DOha Primary Care Physician [phone] [place] [facility]23 - 01/02/24 [facility] [address] [place] [address] Allergies, Adverse Reactions, Alerts Substance Reaction Severity [...] Reason: Med Not Available 2Result Comment: [10/30/2014] [id number] 3Admin Note: VIS GIVEN DATED: 04/29/12 4Admin Note: vis given 05/23/11 5Admin Note: VIS GIVEN-DATED 06/07/10 6Admin Note: vis give dated 08/03/09 7Admin Note: VIS GIVEN VIS DATE 05/08/06 Medications Advair Diskus 250 mcg-50 mcg inhalation powder 1, puffs, Inhalation, 2 times a day, # 28 each, Refills 0, Tot. Refills 0, Maintenance, 09/06/23 14:10:00 EST, Powder, Route to Pharmacy Electronically, [id number], [facility] #[id number], 153, cm, 08/19/23 2:04:00 EDT,... Start Date: 09/06/23 Status: Ordered albuterol 0.083% inhalation solution 3 mL = 2.5 mg, Inhalation, Every 6 hours, # 360 mL, 11 Refills, Maintenance, 09/06/23 8:33:00 EST, Solution, [facility] #[id number], 153, cm, 08/19/23 2:04:00 EDT, Height, 171.8, [...] 01/07/25 17:08:00 EDT, Route to Pharmacy Electronically, [facility] #[id number], 149.86, cm, 02/09/23 15:52:00 EDT, Height, 172.3, kg, 11/26/22 5:4... Start Date: 01/07/25 Stop Date: 12/23/27 Status: Ordered gabapentin 100 mg oral capsule 100 mg, 1, capsule, By Mouth, 3 times a day, # 90 capsule, Refills 0, Tot. Refills 0, Maintenance, 12/14/22 17:21:00 EST, Route to Pharmacy Electronically, [facility] #04116, Partial fill upon patient request if the prescription is for a kelly... Start Date: 12/14/22 Status: Ordered metFORMIN 1000 mg oral tablet 1 tablet = 1,000 mg, By Mouth, 2 times a day, # 60 tablet, 11 Refills, Maintenance, 09/24/23 9:06:00 EST, Tablet, [facility] #26258, cancel previous metformin scripts, 153, cm, 09/16/23 13:33:00 EST, Height, 176, kg, 09/16/23 13:33:00 EST, D... Start Date: 09/24/23 Status: Ordered multivitamin Multiple Vitamins oral capsule 1 capsule, By Mouth, Daily, # 30 capsule, 0 Refills, Maintenance, 09/06/23 8:33:00 EST, Capsule, [facility] #[id number], Partial fill upon patient request if the [...] 2 Refills, Maintenance, 09/24/23 9:06:00 EST, Capsule, [facility] #[id number], Partial fill upon patient request if the [...] Confirmed Active DMII Confirmed Active 1DrRyder Wade [phone], [place]. Dx 06/07/09 Social History Social History Type Response Smoking Status Former smoker, quit more than 30 days ago entered on: 06/11/19 Sex Patient Care team information Care Team Personnel Name: Becca Crain RN Position: S RN Member Role: Primary Care Nurse Name: Jayna Sandhu RN Position: S RN Member Role: Primary Care Nurse Name: Erik RNMaty Position: [facility] RN Member Role: Primary Care Nurse Name: Roger Peña RN Position: [facility] RN Supv Member Role: Primary Care Nurse Name: Mihir Jackson RN Position: [facility] RN Member Role: Primary Care Nurse Name: Danya Roman RN Position: [facility] SN RN Member Role: Primary Care Nurse Name: Kem RNAshley Position: [facility] ED RN W/OE and Tasks Member Role: Primary Care Nurse Name: Amanda Huerta RN Position: S RN Member Role: Primary Care Nurse Name: Yessica Stock RN Position: [facility] RN Member Role: Primary Care Nurse Name: Hazel Valadez DO Position: [facility] Resident Member Role: PCP Address: Address: [address] [place] [address] Name: Juli Calles RN Position: [facility] RN Member Role: Primary Care Nurse Care Team Related Persons Name: ZULEIMA MCKEON Address: [place] [address] Name: ZAYRA STREETER Address: home [address] [address] Name: LUCITA TEMPLE Address: home Name: LARA TEMPLE Address: home [address] [address] Name: JUSTIN HINES
--- OUTSIDE RECORDS SUMMARY | 2024-04-04 10:11 | XMS_ITS | Continuity of Care Document ---
Author Organization [facility] Address [address] [place] [address]- Care Team Providers Care Bridge Opener Name Role Phone Allyson ARMSTRONG Hazel Primary Care Physician [phone] Encounter [facility] Date(s): 07/14/22 - 09/15/[address] [address]- Attending Physician: Kong Baer OD Admitting Physician: Kong Baer OD Allergies, Adverse Reactions, Alerts Substance Reaction Severity [...] Reason: Med Not Available 3Result Comment: [10/30/2014] [id number] 4Admin Note: VIS GIVEN DATED: 04/29/12 5Admin Note: vis given 05/23/11 6Admin Note: VIS GIVEN-DATED 06/07/10 7Admin Note: vis give dated 08/03/09 8Admin Note: VIS GIVEN VIS DATE 05/08/06 Medications albuterol 0.083% inhalation solution 3 mL = 2.5 mg, Inhalation, Every 6 hours, # 360 mL, 11 Refills, Maintenance, 07/17/22 11:50:00 EDT,Solution, [facility] #[id number], 152, cm, 07/12/22 13:07:00 EDT, Height, 175.5, [...] 01/23/22 17:08:00 EDT, Route to Pharmacy Electronically, [facility] #[id number], 152, cm, 06/17/21 8:41:00 EDT, Height, 175.5, kg, 08/09/20 0:18:00... Start Date: 01/23/22 Stop Date: 01/07/25 Status: Ordered gabapentin 100 mg oral capsule 100 mg, 1, capsule, By Mouth, 3 times a day, # 90 capsule, Refills 0, Tot. Refills 0, Maintenance, 07/12/22 14:00:00 EDT, Route to Pharmacy Electronically, [facility] #[id number], Partial fill upon patient request if the prescription is for a kelly... Start Date: 07/12/22 Status: Ordered lisinopril 5 mg oral tablet 5 mg, 1, tablet, By Mouth, Daily, # 30 tablet, Refills 2, Tot. Refills 2, Maintenance, 07/17/22 17:03:00 EDT, Route to Pharmacy Electronically, [facility] #[id number], Please disregard 10mg dosing, 152, cm, 07/12/22 13:07:00 EDT, Height, 175.5, k... Start Date: 07/17/22 Status: Ordered metFORMIN 1000 mg oral tablet 1 tablet = 1,000 mg, By Mouth, 2 times a day, # 60 tablet, 11 Refills, Maintenance, 07/12/22 13:42:00 EDT, Tablet, [facility] #[id number], cancel previous metformin scripts, 152, cm, 07/12/22 [...] 09/01/22 15:06:00 EDT, Route to Pharmacy Electronically, [facility] #[id number], Partial... Start Date: 09/01/22 Status: Ordered rolling [...] 11 Refills, Maintenance, 04/21/22 12:34:00 EDT, Powder, [facility][id number], Partial fill upon patient request if the prescription is for a schedule II opioid drug., 1 puffs... Start Date: 04/21/22 Stop Date: 04/16/23 Status: Ordered Trulicity Pen 0.75 mg/0.5 mL subcutaneous solution 0.5 mL = 0.75 mg, Subcutaneous Injection, Every week, rotate injection sites, # 2 mL, 3 Refills, Maintenance, 07/12/22 14:01:00 EDT, Solution, [facility] #[id number], Partial fill upon patient request if the prescription is for a schedule II opio... Start Date: 07/12/22 Status: Ordered Vitamin D3 2000 intl units oral capsule 1 capsule = 2,000 International_Units, By Mouth, Daily, # 60 capsule, 2 Refills, Maintenance, 07/17/22 16:56:00 EDT, Capsule, [facility] #[id number], Partial fill upon patient request if the [...] Confirmed Active DMII Confirmed Active 1DrRyder Wade [phone], Norma. Dx 06/07/09 Social History Social History Type Response Smoking Status Former smoker, quit more than 30 days ago entered on: 06/11/19 Sex Patient Care team information Care Team Personnel Name: Maty Valencia RN Position: [facility] RN Member Role: Primary Care Nurse Name: Danya Roman RN Position: [facility] AMB Nurse Member Role: Primary Care Nurse Name: Ashley Brownlee RN Position: [facility] ED RN W/OE and Tasks Member Role: Primary Care Nurse Name: Becca Enrique RN Position: [facility] RN Member Role: Primary Care Nurse Name: Elma Caruso (INSTR) Position: [facility] RN Member Role: Primary Care Nurse Name: Amanda Huerta RN Position: [facility] RN Member Role: Primary Care Nurse Name: Hazel Valadez DO Position: S Resident Member Role: PCP Address: Address: [address] [place] [address] [place] [address]- Name: Juli Calles RN Position: S RN Member Role: Primary Care Nurse Care Team Related Persons Name: ZULEIMA MCKEON Address: [place] [address] Name: LUCITA TEMPLE Address: home [address] [address] Name: LARA TEMPLE Address: home [address] [place] [address] Name: JUSTIN HINES
--- OUTSIDE RECORDS SUMMARY | 2024-04-04 10:11 | XMS_ITS | Continuity of Care Document ---
Author Organization [facility] ter Address [address] [place] [address]- Care Team Providers Care Electrical Installation Inspector Name Role Phone Hazel Valadez DO Primary Care Physician [phone] Encounter [facility] Date(s): 12/07/22 - 01/06/[address] [address] Allergies, Adverse Reactions, Alerts Substance Reaction [...] Reason: Med Not Available 2Result Comment: [10/30/2014] [id number] 3Admin Note: VIS GIVEN DATED: 04/29/12 4Admin Note: vis given 05/23/11 5Admin Note: VIS GIVEN-DATED 06/07/10 6Result Comment: in error 7Admin Note: vis give dated 08/03/09 8Admin Note: VIS GIVEN VIS DATE 05/08/06 Medications albuterol 0.083% inhalation solution 3 mL = 2.5 mg, Inhalation, Every 6 hours, # 360 mL, 11 Refills, Maintenance, 07/17/22 11:50:00 EDT,Solution, [facility] #[id number], 152, cm, 07/12/22 13:07:00 EDT, Height, 175.5, [...] 01/23/22 17:08:00 EDT, Route to Pharmacy Electronically, [facility] #[id number], 152, cm, 06/17/21 8:41:00 EDT, Height, 175.5, kg, 08/09/20 0:18:00... Start Date: 01/23/22 Stop Date: 01/07/25 Status: Ordered gabapentin 100 mg oral capsule 100 mg, 1, capsule, By Mouth, 3 times a day, # 90 capsule, Refills 0, Tot. Refills 0, Maintenance, 12/14/22 17:21:00 EST, Route to Pharmacy Electronically, [facility] #[id number], Partial fill upon patient request if the prescription is for a kelly... Start Date: 12/14/22 Status: Ordered metFORMIN 1000 mg oral tablet 1 tablet = 1,000 mg, By Mouth, 2 times a day, # 60 tablet, 11 Refills, Maintenance, 07/12/22 13:42:00 EDT, Tablet, [facility] #[id number], cancel previous metformin scripts, 152, cm, 07/12/22 [...] 11 Refills, Maintenance, 04/21/22 12:34:00 EDT, Powder, [facility] #[id number], Partial fill upon patient request if the prescription is for a schedule II opioid drug., 1 puffs... Start Date: 04/21/22 Stop Date: 04/16/23 Status: Ordered Trulicity Pen 0.75 mg/0.5 mL subcutaneous solution 0.5 mL = 0.75 mg, Subcutaneous Injection, Every week, rotate injection sites, # 2 mL, 3 Refills, Maintenance, 07/12/22 14:01:00 EDT, Solution, [facility] #[id number], Partial fill upon patient request if the prescription is for a schedule II opio... Start Date: 07/12/22 Status: Ordered Vitamin D3 2000 intl units oral capsule 1 capsule = 2,000 International_Units, By Mouth, Daily, # 60 capsule, 2 Refills, Maintenance, 07/17/22 16:56:00 EDT, Capsule, [facility] #[id number], Partial fill upon patient request if the [...] Confirmed Active DMII Confirmed Active 1DrRyder Wade [phone], [place]. Dx 06/07/09 Social History Social History Type Response Smoking Status Former smoker, quit more than 30 days ago entered on: 06/11/19 Sex Patient Care team information Care Team Personnel Name: Jayna Sandhu RN Position: S RN Member Role: Primary Care Nurse Name: Maty Valencia RN Position: S RN Member Role: Primary Care Nurse Name: Roger Peña RN Position: [facility] RN Supv Member Role: Primary Care Nurse Name: Mihir Jackson RN Position: [facility] RN Member Role: Primary Care Nurse Name: Tessy Jaramillo RN Position: [facility] RN Member Role: Primary Care Nurse Name: Danya Roman RN Position: [facility] SN RN Member Role: Primary Care Nurse Name: Ashley Brownlee RN Position: [facility] ED RN W/OE and Tasks Member Role: Primary Care Nurse Name: Becca Enrique RN Position: [facility] RN Member Role: Primary Care Nurse Name: Elma Caruso (INSTR) Position: [facility] RN Member Role: Primary Care Nurse Name: Amanda Huerta RN Position: [facility] RN Member Role: Primary Care Nurse Name: Yessica Stock Position: S RN Member Role: Primary Care Nurse Name: Hazel Valadez DO Position: [facility] Resident Member Role: PCP Address: Address: [address] [place] [address] [place] [address]- Name: Radha Bravo RN Position: [facility] RN Member Role: Primary Care Nurse Name: Juli Calles RN Position: [facility] RN Member Role: Primary Care Nurse Care Team Related Persons Name: LINDA ZULEIMA Address: [place] [address] Name: LUCITA TEMPLE Address: home Name: LARA TEMPLE Name: JUSTIN HINES
--- OUTSIDE RECORDS SUMMARY | 2024-04-04 10:11 | XMS_ITS | Continuity of Care Document ---
Author Organization [facility] ter Address [address] [place] [address]- Care Team Providers Care Orthopedic Designer Name Role Phone Allyson ARMSTRONG Hazel Primary Care Physician Encounter [facility] Date(s): 02/19/24 - 03/20/[address] [address]- Attending Physician: Not on Staff, Attending MD Admitting Physician: Not on Staff, Admitting MD Referring Physician: Not on Staff, Referring MD Allergies, Adverse Reactions, Alerts Substance Reaction Severity Status sulfamethoxazole itch Active Immunizations Given and Recorded Vaccine Date Status Refusal Reason influenza virus vaccine, inactivated 10/20/21 Jacile rded influenza virus vaccine, inactivated 1 08/10/20 [...] Reason: Med Not Available 2Result Comment: [10/30/2014] [id number] 3Admin Note: VIS GIVEN DATED: 04/29/12 4Admin Note: vis given 05/23/11 5Admin Note: VIS GIVEN-DATED 06/07/10 6Admin Note: vis give dated 08/03/09 7Admin Note: VIS GIVEN VIS DATE 05/08/06 Medications albuterol 0.083% inhalation solution 3 mL = 2.5 mg, Inhalation, Every 6 hours, # 360 mL, 11 Refills, Maintenance, 03/13/24 16:03:00 EDT,Solution, [facility] #[id number], 153, cm, 03/13/24 15:29:00 EDT, Height, 176, kg, 09/16/23 13:33:00 EST, Dry Weight Start Date: 03/13/24 Stop Date: 03/08/25 Status: Ordered Bariatric 4 wheeled walker with seat and brakes Bariatric 4 wheeled walker with seat and brakes, See Instructions, # 1 each, Refills 0, Tot. Refills 0, Maintenance, Use as directed when ambulating for fall prevention Dx: R26.81, M17.10, M77.9, E66.01 Duration: Lifetime Ht 153 cm Wt 176 kg, 03/13... Start Date: 03/13/24 Status: Ordered bariatric walker bariatric walker, See [...] EDT, Supply Start Date: 07/18/22 Status: Ordered budesonide-formoterol 80 mcg-4.5 mcg/inh inhalation aerosol with adapter 2, puffs, Inhalation, 2 times a day, # 10.2 Gm, Refills 0, Tot. Refills 0, Maintenance, 03/13/24 16:05:00 EDT, Aerosol, Route to Pharmacy Electronically, [id number], [facility] #[id number], 153, cm, 03/13/24 15:29:00 EDT... Start Date: 03/13/24 Status: Ordered diclofenac 1% topical gel 1 application, Topically, 4 times a day, # 100 Gm, 3 Refills, Maintenance, 03/13/24 16:13:00 EDT, Gel, [facility] #[id number], Partial fill upon patient request if the prescription is for a schedule II opioid drug., 153, cm, 03/13/24 15:29:00 EDT... Start Date: 03/13/24 Status: Ordered Freestyle jorden 2 sensors 14 [...] 12/23/27 17:08:00 EST, Route to Pharmacy Electronically, [facility] #[id number], 153, cm, 12/03/23 14:50:00 EST, Height, 176, kg, 09/16/23 13:33:00 E... Start Date: 12/23/27 Stop Date: 12/07/30 Status: Ordered gabapentin 300 mg oral capsule 300 mg, 1, capsule, By Mouth, 2 times a day, for back pain, # 60 capsule, Refills 5, Tot. Refills 5, Maintenance, 01/24/24 14:15:00 EDT, Route to Pharmacy Electronically, [facility] #[id number],Partial fill upon patient request if the prescripti... Start Date: 01/24/24 Status: Ordered ibuprofen 800 mg oral tablet 800 mg, 1, tablet, By Mouth, Every 8 hours, prn pain, take with food, # 45 tablet, Refills 1, Tot. Refills 1, Maintenance, 03/13/24 16:11:00 EDT, Route to Pharmacy Electronically, [facility] #[id number], Partial fill upon patient request if the p... Start Date: 03/13/24 Status: Ordered Insulin Glargine Prefilled Pen 100 units/mL subcutaneous solution = 20 units, Subcutaneous Injection, Daily at bedtime, # 15 mL, 3 Refills, Maintenance, 03/13/24 16:06:00 EDT, [facility] #[id number], Partial fill upon patient request if the prescription is fora schedule II opioid drug., 153, cm, 03/13/24 15:29... Start Date: 03/13/24 Status: Ordered multivitamin Multiple Vitamins oral capsule 1 capsule, By Mouth, Daily, # 30 capsule, 0 Refills, Maintenance, 02/26/24 17:01:00 EDT, Capsule, [facility], Partial fill upon patient request if the prescription is for a schedule II opioid drug., 1 capsule By Mouth Daily, 153, cm, ... Start Date: 02/26/24 Status: Ordered Oxygen Supplies See Instructions, # 1 each, Refills 11, Tot. Refills 11, Maintenance, 2-3 L VIA NASAL CANNULA USE NIGHTLY WITH CPAP RESPIRATORY FAILURE HYPOXIA REBEL G47.33 R09.02, 07/24/23 13:12:00 EDT, Compound Start Date: 07/24/23 Status: Ordered Pen [place], 32 G x 4 mm BD Ultra [...] Daily, # 60 capsule, 2 Refills, Maintenance, 02/26/24 17:01:00 EDT, Capsule, [facility], Partial fill upon patient request if the prescription is for a schedule II opioid drug., 153, cm, 0... Start Date: 02/26/24 Status: Ordered Walker See Instructions, # 1 [...] Confirmed Active DMII Confirmed Active 1Dr. Tunde Wade [phone], [place]. Dx 06/07/09 Social History Social History Type Response Smoking Status Former smoker, quit more than 30 days ago entered on: 06/11/19 Sex Patient Care team information Care Team Personnel Name: Becca Crain RN Position: [facility] RN Member Role: Primary Care Nurse Name: Opal Renteria RN Position: [facility] SN RN Member Role: Primary Care Nurse Name: Jayna Sandhu RN Position: S RN Member Role: Primary Care Nurse Name: Maty Valencia RN Position: S RN Member Role: Primary Care Nurse Name: Christiano Rosenbaum RN Position: S RN Member Role: Primary Care Nurse Name: eHma Lyn RN Position: S RN Member Role: Primary Care Nurse Name: Roger Peña RN Position: [facility] RN Supv Member Role: Primary Care Nurse Name: Hira Black RN Position: [facility] RN Member Role: Primary Care Nurse Name: Mihir Jackson RN Position: [facility] RN Member Role: Primary Care Nurse Name: Danya Roman RN Position: [facility] SN RN Member Role: Primary Care Nurse Name: Ashley Brownlee RN Position: [facility] ED RN W/OE and Tasks Member Role: Primary Care Nurse Name: Elma Caruso (INSTR) Position: S RN Member Role: Primary Care Nurse Name: Sowmya Hooks LPN Position: S RN Member Role: Primary Care Nurse Name: Amanda Huerta RN Position: S RN Member Role: Primary Care Nurse Name: Yessica Stock RN Position: S RN Member Role: Primary Care Nurse Name: Hazel Valadez DO Position: S Resident Member Role: PCP Address: Address: [address] [place] [address] [place] [address]- Name: Lizzette Barrientos RN Position: S RN Member Role: Primary Care Nurse Name: Nathanael Lawrence RN Position: S RN Member Role: Primary Care Nurse Name: Zoe Falcon RN Position: S RN Member Role: Primary Care Nurse Name: Jayna Escamilla RN Position: S RN Member Role: Primary Care Nurse Name: Juli Calles RN Position: S RN Member Role: Primary Care Nurse Name: Tahmina Choi Position: [facility] RN Member Role: Primary Care Nurse Name: Magdi Gutierrez RN Position: [facility] RN Member Role: Primary Care Nurse Care Team Related Persons Name: ZULEIMA MCKEON Address: [place] [address] Name: ZAYRA STREETER Address: home [address] [address] Name: LUCITA TEMPLE Address: home Name: LARA TEMPLE Address: home [address] [address] Name: JUSTIN HINES
--- OUTSIDE RECORDS SUMMARY | 2024-04-04 10:11 | XMS_ITS | Continuity of Care Document ---
Author Organization [facility] Address [address] [place] [address]- Care Team Providers Care Preventive Medicine Officer Name Role Phone Hazel Valadez DO Primary Care Physician Encounter [facility] Date(s): 09/19/23 - 10/19/23 [facility] [address] [place] [address]- Allergies, Adverse Reactions, Alerts Substance Reaction Severity [...] Reason: Med Not Available 2Result Comment: [10/30/2014] [id number] 3Admin Note: VIS GIVEN DATED: 04/29/12 4Admin Note: vis given 05/23/11 5Admin Note: VIS GIVEN-DATED 06/07/10 6Admin Note: vis give dated 08/03/09 7Admin Note: VIS GIVEN VIS DATE 05/08/06 Medications Advair Diskus 250 mcg-50 mcg inhalation powder 1, puffs, Inhalation, 2 times a day, # 28 each, Refills 0, Tot. Refills 0, Maintenance, 09/06/23 14:10:00 EST, Powder, Route to Pharmacy Electronically, [id number], [facility] #[id number], 153, cm, 08/19/23 2:04:00 EDT,... Start Date: 09/06/23 Status: Ordered albuterol 0.083% inhalation solution 3 mL = 2.5 mg, Inhalation, Every 6 hours, # 360 mL, 11 Refills, Maintenance, 09/06/23 8:33:00 EST, Solution, [facility] #[id number], 153, cm, 08/19/23 2:04:00 EDT, Height, 171.8, [...] 01/07/25 17:08:00 EDT, Route to Pharmacy Electronically, [facility] #[id number], 149.86, cm, 02/09/23 15:52:00 EDT, Height, 172.3, kg, 11/26/22 5:4... Start Date: 01/07/25 Stop Date: 12/23/27 Status: Ordered gabapentin 100 mg oral capsule 100 mg, 1, capsule, By Mouth, 3 times a day, # 90 capsule, Refills 0, Tot. Refills 0, Maintenance, 12/14/22 17:21:00 EST, Route to Pharmacy Electronically, [facility] #[id number], Partial fill upon patient request if the prescription is for a kelly... Start Date: 12/14/22 Status: Ordered metFORMIN 1000 mg oral tablet 1 tablet = 1,000 mg, By Mouth, 2 times a day, # 60 tablet, 11 Refills, Maintenance, 09/24/23 9:06:00 EST, Tablet, [facility] #[id number], cancel previous metformin scripts, 153, cm, 09/16/23 13:33:00 EST, Height, 176, kg, 09/16/23 13:33:00 EST, D... Start Date: 09/24/23 Status: Ordered multivitamin Multiple Vitamins oral capsule 1 capsule, By Mouth, Daily, # 30 capsule, 0 Refills, Maintenance, 09/06/23 8:33:00 EST, Capsule, [facility] #[id number], Partial fill upon patient request if the [...] 2 Refills, Maintenance, 09/24/23 9:06:00 EST, Capsule, [facility] #[id number], Partial fill upon patient request if the [...] Confirmed Active DMII Confirmed Active 1DrRyder Wade [phone], [place]. Dx 06/07/09 Social History Social History Type Response Smoking Status Former smoker, quit more than 30 days ago entered on: 06/11/19 Sex Patient Care team information Care Team Personnel Name: Becca Crain RN Position: S RN Member Role: Primary Care Nurse Name: Jayna Sandhu RN Position: S RN Member Role: Primary Care Nurse Name: Maty Vaelncia RN Position: S RN Member Role: Primary Care Nurse Name: Roger Peña RN Position: [facility] RN Supv Member Role: Primary Care Nurse Name: Mihir Jackson RN Position: [facility] RN Member Role: Primary Care Nurse Name: Danya Roman RN Position: [facility] SN RN Member Role: Primary Care Nurse Name: Kem RNAshley Position: [facility] ED RN W/OE and Tasks Member Role: Primary Care Nurse Name: Elma Caruso (INSTR) Position: [facility] RN Member Role: Primary Care Nurse Name: Amanda Huerta RN Position: [facility] RN Member Role: Primary Care Nurse Name: Yessica Stock Position: S RN Member Role: Primary Care Nurse Name: Hazel Valadez DO Position: [facility] Resident Member Role: PCP Address: Address: [address] [place] [address] [place] [address]- Name: Juli Calles RN Position: [facility] RN Member Role: Primary Care Nurse Care Team Related Persons Name: ZULEIMA MCKEON Address: [place] [address] Name: ZAYRA STREETER Address: home [address] [address] Name: LUCITA TEMPLE Address: home Name: LARA TEMPLE Address: home [address] [address] Name: JUSTIN HINES
--- OUTSIDE RECORDS SUMMARY | 2024-04-04 10:11 | XMS_ITS | Continuity of Care Document ---
Author Organization [facility] Address [address] [place] [address]- Care Team Providers Care Petroleum Plant Operator Name Role Phone Allyson ARMSTRONG Hazel Primary Care Physician [facility] Date[facility]s): 03/30/22 - 05/20/22 [facility] [address] [place] [address]- Attending Physician: Not on Staff, Attending MD [...] Reason: Med Not Available 3Result Comment: [10/30/2014] [id number] 4Admin Note: VIS GIVEN DATED: 04/29/12 5Admin Note: vis given 05/23/11 6Admin Note: VIS GIVEN-DATED 06/07/10 7Admin Note: vis give dated 08/03/09 8Admin Note: VIS GIVEN VIS DATE 05/08/06 Medications albuterol 0.083% inhalation solution 3 mL = 2.5 mg, Inhalation, Every 6 hours, # 360 mL, 11 Refills, Maintenance, 08/29/20 20:48:00 EST,Solution, [facility], 152, cm, 08/13/20 13:28:00 EDT, Height, 175.5, kg, 08/09/20 0:18:00 EDT, Dry Weight Start Date: 08/29/20 Stop Date: 08/24/21 Status: Ordered albuterol CFC free 90 mcg/inh inhalation aerosol 2, puffs, Inhalation, 4 times a day, PRN, FOR WHEEZING AND SHORTNESS OF BREATH, # 1 each, Refills 5, Tot. Refills 5, Maintenance, 08/24/21 20:48:00 EDT, Route to Pharmacy Electronically, [id number], [facility] #[id number]... Start Date: 08/24/21 Stop Date: 02/20/22 Status: Ordered duloxetine 60 mg oral enteric coated capsule 1 capsule = 60 mg, By Mouth, Daily, # 30 capsule, 10 Refills, Maintenance, 10/14/20 15:08:00 EST, EC Capsule, [facility] #[id number], Partial fill upon patient request if the prescription is fora schedule II opioid drug., 152, cm, 08/13/20 13:28... Start Date: 10/14/20 Status: Ordered furosemide 40 mg oral tablet 40 mg, 1, tablet, By Mouth, 2 times a day, # 180 tablet, Refills 11, Tot. Refills 11, Maintenance, 01/23/22 17:08:00 EDT, Route to Pharmacy Electronically, [facility] #[id number], 152, cm, 06/17/21 8:41:00 EDT, Height, 175.5, kg, 08/09/20 0:18:00... Start Date: 01/23/22 Stop Date: 01/07/25 Status: Ordered hydrOXYzine hydrochloride 25 mg oral tablet 1 tablet = 25 mg, By Mouth, 4 times a day, PRN for anxiety, # 40 tablet, 1 Refills, Maintenance, 08/28/21 15:25:00 EDT, Tablet, [facility] #[id number], Partial fill upon patient request if the prescription is for a schedule II opioid drug., 152,... Start Date: 08/28/21 Stop Date: 10/27/21 Status: Ordered meloxicam 15 mg oral tablet 1 tablet = 15 mg, By Mouth, Daily, For knee and back pain, # 30 tablet, 2 Refills, Maintenance, 06/17/21 9:06:00 EDT, Tablet, [facility] #[id number], Partial fill upon patient request if the prescription is for a schedule II opioid drug., 152, cm... Start Date: 06/17/21 Status: Ordered metFORMIN 1000 mg oral tablet 1 tablet = 1,000 mg, By Mouth, 2 times a day, # 60 tablet, 11 Refills, Maintenance, 06/17/21 9:12:00 EDT, Tablet, [facility] #[id number], cancel previous metformin scripts, 152, cm, 06/17/21 [...] 10 Refills, Maintenance, 10/14/20 15:09:00 EST, Tablet, [facility] #[id number], 152, cm, 08/13/20 13:28:00 EDT, Height, 175.5, [...] 11 Refills, Maintenance, 04/21/22 12:34:00 EDT, Powder, [facility] #[id number], Partial fill upon patient request if the prescription is for a schedule II opioid drug., 1 puffs... Start Date: 04/21/22 Stop Date: 04/16/23 Status: Ordered Vitamin D3 2000 intl units oral capsule 1 capsule = 2,000 International_Units, By Mouth, Daily, # 60 capsule, 2 Refills, Maintenance, 11/02/20 10:14:00 EST, Capsule, [facility] #[id number], Partial fill upon patient request if the [...] Osteoarthritis(Confirmed) Active Severe obesity(Confirmed) Active DMII(Confirmed) Active 1Dr. Tunde Wade [phone], Norma. Dx 06/07/09 Social History Social History Type Response Smoking Status Former smoker, quit more than 30 days ago entered on: 06/11/19 Sex
--- OUTSIDE RECORDS SUMMARY | 2024-04-04 10:11 | XMS_ITS | Continuity of Care Document ---
Author Organization [facility] Address [address] [place] [address]- Care Team Providers Care Management Liaison Name Role Phone Joey Steele MD Primary Care Physician [facility] Date[facility]s): 03/14/22 - 04/13/22 [facility] [address] [place] [address]- Allergies, Adverse Reactions, Alerts Substance Reaction Severity [...] Reason: Med Not Available 3Result Comment: [10/30/2014] [id number] 4Admin Note: VIS GIVEN DATED: 04/29/12 5Admin Note: vis given 05/23/11 6Admin Note: VIS GIVEN-DATED 06/07/10 7Admin Note: vis give dated 08/03/09 8Admin Note: VIS GIVEN VIS DATE 05/08/06 Medications albuterol 0.083% inhalation solution 3 mL = 2.5 mg, Inhalation, Every 6 hours, # 360 mL, 11 Refills, Maintenance, 08/29/20 20:48:00 EST,Solution, [facility], 152, cm, 08/13/20 13:28:00 EDT, Height, 175.5, kg, 08/09/20 0:18:00 EDT, Dry Weight Start Date: 08/29/20 Stop Date: 08/24/21 Status: Ordered albuterol CFC free 90 mcg/inh inhalation aerosol 2, puffs, Inhalation, 4 times a day, PRN, FOR WHEEZING AND SHORTNESS OF BREATH, # 1 each, Refills 5, Tot. Refills 5, Maintenance, 08/24/21 20:48:00 EDT, Route to Pharmacy Electronically, [id number], [facility] #[id number]... Start Date: 08/24/21 Stop Date: 02/20/22 Status: Ordered duloxetine 60 mg oral enteric coated capsule 1 capsule = 60 mg, By Mouth, Daily, # 30 capsule, 10 Refills, Maintenance, 10/14/20 15:08:00 EST, EC Capsule, [facility] #[id number], Partial fill upon patient request if the prescription is fora schedule II opioid drug., 152, cm, 08/13/20 13:28... Start Date: 10/14/20 Status: Ordered furosemide 40 mg oral tablet 40 mg, 1, tablet, By Mouth, 2 times a day, # 180 tablet, Refills 11, Tot. Refills 11, Maintenance, 01/23/22 17:08:00 EDT, Route to Pharmacy Electronically, [facility] #[id number], 152, cm, 06/17/21 8:41:00 EDT, Height, 175.5, kg, 08/09/20 0:18:00... Start Date: 01/23/22 Stop Date: 01/07/25 Status: Ordered hydrOXYzine hydrochloride 25 mg oral tablet 1 tablet = 25 mg, By Mouth, 4 times a day, PRN for anxiety, # 40 tablet, 1 Refills, Maintenance, 08/28/21 15:25:00 EDT, Tablet, [facility] #[id number], Partial fill upon patient request if the prescription is for a schedule II opioid drug., 152,... Start Date: 08/28/21 Stop Date: 10/27/21 Status: Ordered meloxicam 15 mg oral tablet 1 tablet = 15 mg, By Mouth, Daily, For knee and back pain, # 30 tablet, 2 Refills, Maintenance, 06/17/21 9:06:00 EDT, [facility] #[id number], Partial fill upon patient request if the prescription is for a schedule II opioid drug., 152, cm... Start Date: 06/17/21 Status: Ordered metFORMIN 1000 mg oral tablet 1 tablet = 1,000 mg, By Mouth, 2 times a day, # 60 tablet, 11 Refills, Maintenance, 06/17/21 9:12:00 EDT, [facility] #[id number], cancel previous metformin scripts, 152, cm, 06/17/21 [...] 10 Refills, Maintenance, 10/14/20 15:09:00 EST, Tablet, [facility] #[id number], 152, cm, 08/13/20 13:28:00 EDT, Height, 175.5, [...] 11:58:00 EDT, Aerosol, Route to Pharmacy Electronically, [id number], [facility] #[id number], 152, cm, 03/09/22 11:51:00 EDT,... Start Date: 03/09/22 Status: Ordered Vitamin D3 2000 intl units oral capsule 1 capsule = 2,000 International_Units, By Mouth, Daily, # 60 capsule, 2 Refills, Maintenance, 11/02/20 10:14:00 EST, Capsule, [facility] #[id number], Partial fill upon patient request if the [...] Severe obesity(Confirmed) Active DMII(Confirmed) Active 1DrRyder Wade [phone], Norma. Dx 06/07/09 Social History Social History Type Response Smoking Status Former smoker, quit more than 30 days ago entered on: 06/11/19 Sex
--- OUTSIDE RECORDS SUMMARY | 2024-04-04 10:11 | XMS_ITS | Continuity of Care Document ---
Author Organization [facility] Address [address] [place] [address]- Care Team Providers Care Sales Operations Coordinator Name Role Phone Joey Steele MD Primary Care Physician Encounter [facility] Date(s): 03/11/20 - 03/18/20 [facility] [address] [place] [address]- [facility] Attending Physician: Ralf Gonzalez MD Allergies, Adverse Reactions, Alerts Substance Reaction [...] (DT) 6 06/15/09 Given 1Result Comment: [10/30/2014] [id number] 2Admin Note: VIS GIVEN DATED: 04/29/12 3Admin [...] 11/22/18 12:58:17 EST, Route to Pharmacy Electronically, [id number], [facility] Start Date: 11/22/18 Stop Date: 11/17/19 [...] 1 Refills, Maintenance, 03/11/20 8:43:00 EDT, Tablet, [facility] #[id number], 150, cm, 07/31/19 11:34:00 EDT, Height, 178.4, [...] CPAP(Confirmed) Active DMII(Confirmed) Active 1Dr. Tunde Wade [phone], Norma. Dx 06/07/09 Social History Social History Type Response Smoking Status Former smoker, quit more than 30 days ago entered on: 06/11/19 Sex
--- OUTSIDE RECORDS SUMMARY | 2024-04-04 10:11 | XMS_ITS | Continuity of Care Document ---
Author Organization [facility] Address [address] [place] [address]- Care Team Providers Care Soyfreeze Operator Name Role Phone Hazel Valadez DO Primary Care Physician [phone] [facility]counter [facility] Date(s): 09/03/23 - 10/03/23 [facility] [address] [place] [address]- Allergies, Adverse Reactions, Alerts Substance Reaction Severity [...] Reason: Med Not Available 2Result Comment: [10/30/2014] [id number] 3Admin Note: VIS GIVEN DATED: 04/29/12 4Admin Note: vis given 05/23/11 5Admin Note: VIS GIVEN-DATED 06/07/10 6Admin Note: vis give dated 08/03/09 7Admin Note: VIS GIVEN VIS DATE 05/08/06 Medications Advair Diskus 250 mcg-50 mcg inhalation powder 1, puffs, Inhalation, 2 times a day, # 28 each, Refills 0, Tot. Refills 0, Maintenance, 09/06/23 14:10:00 EST, Powder, Route to Pharmacy Electronically, [id number], [facility] #[id number], 153, cm, 08/19/23 2:04:00 EDT,... Start Date: 09/06/23 Status: Ordered albuterol 0.083% inhalation solution 3 mL = 2.5 mg, Inhalation, Every 6 hours, # 360 mL, 11 Refills, Maintenance, 09/06/23 8:33:00 EST, Solution, [facility][id number], 153, cm, 08/19/23 2:04:00 EDT, Height, 171.8, [...] 01/07/25 17:08:00 EDT, Route to Pharmacy Electronically, [facility] #[id number], 149.86, cm, 02/09/23 15:52:00 EDT, Height, 172.3, kg, 11/26/22 5:4... Start Date: 01/07/25 Stop Date: 12/23/27 Status: Ordered gabapentin 100 mg oral capsule 100 mg, 1, capsule, By Mouth, 3 times a day, # 90 capsule, Refills 0, Tot. Refills 0, Maintenance, 12/14/22 17:21:00 EST, Route to Pharmacy Electronically, [facility] #[id number], Partial fill upon patient request if the prescription is for a kelly... Start Date: 12/14/22 Status: Ordered metFORMIN 1000 mg oral tablet 1 tablet = 1,000 mg, By Mouth, 2 times a day, # 60 tablet, 11 Refills, Maintenance, 09/24/23 9:06:00 EST, Tablet, [facility] #81914, cancel previous metformin scripts, 153, cm, 09/16/23 13:33:00 EST, Height, 176, kg, 09/16/23 13:33:00 EST, D... Start Date: 09/24/23 Status: Ordered multivitamin Multiple Vitamins oral capsule 1 capsule, By Mouth, Daily, # 30 capsule, 0 Refills, Maintenance, 09/06/23 8:33:00 EST, Capsule, [facility] #39512, Partial fill upon patient request if the [...] 2 Refills, Maintenance, 09/24/23 9:06:00 EST, Capsule, [facility] #[id number], Partial fill upon patient request if the [...] Confirmed Active DMII Confirmed Active 1DrRyder Wade [phone], Norma. Dx 06/07/09 Social History Social History [...] Primary Care Nurse Name: Kem RNAshley Position: [facility] ED RN W/OE and Tasks Member Role: Primary Care Nurse Name: Elma Caruso (INSTR) Position: [facility] RN Member Role: Primary Care Nurse Name: Amanda Huerta RN Position: [facility] RN Member Role: Primary Care Nurse Name: Yessica Stock Position: S RN Member Role: Primary Care Nurse Name: Hazel Valadez DO Position: [facility] Resident Member Role: PCP Address: Address: [address] [place] [address] [place] [address]- Name: Juli Calles RN Position: [facility] RN Member Role: Primary Care Nurse Care Team Related Persons Name: ZULEIMA MCKEON Address: [place] [address] Name: ZAYRA STREETER Address: home [address] [address] Name: LUCITA TEMPLE Address: home Name: LARA TEMPLE Address: home [address] [address] Name: JUSTIN HINES
--- OUTSIDE RECORDS SUMMARY | 2024-04-04 10:11 | XMS_ITS | Continuity of Care Document ---
Author Organization [facility] Address [address] [place] [address]- Care Team Providers Care Managed Security Sales Consultant Name Role Phone Hazel Valadez DO Primary Care Physician [phone] [facility] Date[facility]s): 01/31/23 - 03/10/23 [facility] [address] [place] [address] Attending Physician: Maximus Rosen MD Admitting [...] Reason: Med Not Available 2Result Comment: [10/30/2014] [id number] 3Admin Note: VIS GIVEN DATED: 04/29/12 4Admin Note: vis given 05/23/11 5Admin Note: VIS GIVEN-DATED 06/07/10 6Result Comment: in error 7Admin Note: vis give dated 08/03/09 8Admin Note: VIS GIVEN VIS DATE 05/08/06 Medications albuterol 0.083% inhalation solution 3 mL = 2.5 mg, Inhalation, Every 6 hours, # 360 mL, 11 Refills, Maintenance, 07/17/22 11:50:00 EDT,Solution, [facility] #[id number], 152, cm, 07/12/22 13:07:00 EDT, Height, 175.5, [...] 01/23/22 17:08:00 EDT, Route to Pharmacy Electronically, [facility] #[id number], 152, cm, 06/17/21 8:41:00 EDT, Height, 175.5, kg, 08/09/20 0:18:00... Start Date: 01/23/22 Stop Date: 01/07/25 Status: Ordered gabapentin 100 mg oral capsule 100 mg, 1, capsule, By Mouth, 3 times a day, # 90 capsule, Refills 0, Tot. Refills 0, Maintenance, 12/14/22 17:21:00 EST, Route to Pharmacy Electronically, [facility] #[id number], Partial fill upon patient request if the prescription is for a kelly... Start Date: 12/14/22 Status: Ordered ibuprofen 800 mg oral tablet 800 mg, 1, tablet, By Mouth, 3 times a day, for pain with food or milk, # 30 tablet, Refills 0, Tot. Refills 0, Maintenance, 02/09/23 17:06:00 EDT, Route to Pharmacy Electronically, [facility] #[id number], Partial fill upon patient request if th... Start Date: 02/09/23 Status: Ordered metFORMIN 1000 mg oral tablet 1 tablet = 1,000 mg, By Mouth, 2 times a day, # 60 tablet, 11 Refills, Maintenance, 07/12/22 13:42:00 EDT, Tablet, [facility] #[id number], cancel previous metformin scripts, 152, cm, 07/12/22 [...] 11 Refills, Maintenance, 04/21/22 12:34:00 EDT, Powder, [facility] #[id number], Partial fill upon patient request if the prescription is for a schedule II opioid drug., 1 puffs... Start Date: 04/21/22 Stop Date: 04/16/23 Status: Ordered Trulicity Pen 0.75 mg/0.5 mL subcutaneous solution 0.5 mL = 0.75 mg, Subcutaneous Injection, Every week, rotate injection sites, # 2 mL, 3 Refills, Maintenance, 07/12/22 14:01:00 EDT, Solution, [facility] #[id number], Partial fill upon patient request if the prescription is for a schedule II opio... Start Date: 07/12/22 Status: Ordered Vitamin D3 2000 intl units oral capsule 1 capsule = 2,000 International_Units, By Mouth, Daily, # 60 capsule, 2 Refills, Maintenance, 07/17/22 16:56:00 EDT, Capsule, [facility] #[id number], Partial fill upon patient request if the [...] Confirmed Active DMII Confirmed Active 1Dr. Tunde Petcu [phone], [place]. Dx 06/07/09 Social History Social History Type Response Smoking Status Former smoker, quit more than 30 days ago entered on: 06/11/19 Sex Patient Care team information Care Team Personnel Name: Jayna Sandhu RN Position: [facility] RN Member Role: Primary Care Nurse Name: Maty Valencia RN Position: [facility] RN Member Role: Primary Care Nurse Name: Roger Peña RN Position: [facility] RN Supv Member Role: Primary Care Nurse Name: Mihir Jackson RN Position: [facility] RN Member Role: Primary Care Nurse Name: Tessy Jaramillo RN Position: [facility] RN Member Role: Primary Care Nurse Name: Danya Roman RN Position: [facility] SN RN Member Role: Primary Care Nurse Name: Ashley Brownlee RN Position: [facility] ED RN W/OE and Tasks Member Role: Primary Care Nurse Name: Becca Enrique RN Position: [facility] RN Member Role: Primary Care Nurse Name: Elma Caruso (INSTR) Position: [facility] RN Member Role: Primary Care Nurse Name: Amanda Huerta RN Position: [facility] RN Member Role: Primary Care Nurse Name: Yessica Stock Position: [facility] RN Member Role: Primary Care Nurse Name: Hazel Valadez DO Position: [facility] Resident Member Role: PCP Address: Address: [address] [place] [address] [place] [address]- [place] Name: Radha Bravo RN Position: S RN Member Role: Primary Care Nurse Name: Juli Calles RN Position: [facility] RN Member Role: Primary Care Nurse Care Team Related Persons Name: ZULEIMA MCKEON Address: [place] [address] Name: LUCITA TEMPLE Address: home Name: LARA TEMPLE Name: JUSTIN HINES
--- OUTSIDE RECORDS SUMMARY | 2024-04-04 10:11 | XMS_ITS | Continuity of Care Document ---
Author Organization [facility] Address [address] [place] [address]- Care Team Providers Care Kennel Operator Name Role Phone Hazel Valadez DO Primary Care Physician [facility] Date(s): 10/15/23 - 11/14/23 [facility] [address] [place] [address]- Allergies, Adverse Reactions, Alerts Substance Reaction Severity [...] Reason: Med Not Available 2Result Comment: [10/30/2014] [id number] 3Admin Note: VIS GIVEN DATED: 04/29/12 4Admin Note: vis given 05/23/11 5Admin Note: VIS GIVEN-DATED 06/07/10 6Admin Note: vis give dated 08/03/09 7Admin Note: VIS GIVEN VIS DATE 05/08/06 Medications Advair Diskus 250 mcg-50 mcg inhalation powder 1, puffs, Inhalation, 2 times a day, # 28 each, Refills 0, Tot. Refills 0, Maintenance, 09/06/23 14:10:00 EST, Powder, Route to Pharmacy Electronically, [id number], [facility] #[id number], 153, cm, 08/19/23 2:04:00 EDT,... Start Date: 09/06/23 Status: Ordered albuterol 0.083% inhalation solution 3 mL = 2.5 mg, Inhalation, Every 6 hours, # 360 mL, 11 Refills, Maintenance, 09/06/23 8:33:00 EST, Solution, [facility] #[id number], 153, cm, 08/19/23 2:04:00 EDT, Height, 171.8, [...] 01/07/25 17:08:00 EDT, Route to Pharmacy Electronically, [facility] #[id number], 149.86, cm, 02/09/23 15:52:00 EDT, Height, 172.3, kg, 11/26/22 5:4... Start Date: 01/07/25 Stop Date: 12/23/27 Status: Ordered gabapentin 100 mg oral capsule 100 mg, 1, capsule, By Mouth, 3 times a day, # 90 capsule, Refills 0, Tot. Refills 0, Maintenance, 12/14/22 17:21:00 EST, Route to Pharmacy Electronically, [facility] #[id number], Partial fill upon patient request if the prescription is for a kelly... Start Date: 12/14/22 Status: Ordered metFORMIN 1000 mg oral tablet 1 tablet = 1,000 mg, By Mouth, 2 times a day, # 60 tablet, 11 Refills, Maintenance, 09/24/23 9:06:00 EST, Tablet, [facility] #[id number], cancel previous metformin scripts, 153, cm, 09/16/23 13:33:00 EST, Height, 176, kg, 09/16/23 13:33:00 EST, D... Start Date: 09/24/23 Status: Ordered multivitamin Multiple Vitamins oral capsule 1 capsule, By Mouth, Daily, # 30 capsule, 0 Refills, Maintenance, 09/06/23 8:33:00 EST, Capsule, [facility] #[id number], Partial fill upon patient request if the [...] 2 Refills, Maintenance, 09/24/23 9:06:00 EST, Capsule, [facility] #[id number], Partial fill upon patient request if the [...] Confirmed Active DMII Confirmed Active 1DrRyder Wade [phone], Norma. Dx 06/07/09 Social History Social History [...] Primary Care Nurse Name: Yessica Stock Position: [facility] RN Member Role: Primary Care Nurse Name: Hazel Valadez DO Position: [facility] Resident Member Role: PCP Address: Address: [address] [place] [address] [place] [address]- Name: Juli Calles RN Position: [facility] RN Member Role: Primary Care Nurse Care Team Related Persons Name: ZULEIMA MCKEON Address: [place] [address] Name: ZAYRA STREETER Address: home [address] [address] Name: LUCITA TEMPLE Address: home Name: LARA TEMPLE Address: home [address] [address] Name: JUSTIN HINES
--- OUTSIDE RECORDS SUMMARY | 2024-04-04 10:12 | XMS_ITS | Continuity of Care Document ---
Author Organization [facility] Address [address] [place] [address]- Care Team Providers Care Dietary Manager Name Role Phone Allyson ARMSTRONG Hazel Primary Care Physician [place] [facility] [place] 11/20/22 [facility] [address] [place] [address]- Discharge Disposition: A-D/C Home Attending Physician: Lidia Wang MD, Maximus Page Admitting Physician: Maximus Mueller MD Referring Physician: Madeleine Mckeon MD Allergies, Adverse Reactions, Alerts Substance Reaction [...] Reason: Med Not Available 3Result Comment: [10/30/2014] [id number] 4Admin Note: VIS GIVEN DATED: 04/29/12 5Admin Note: vis given 05/23/11 6Admin Note: VIS GIVEN-DATED 06/07/10 7Admin Note: vis give dated 08/03/09 8Admin Note: VIS GIVEN VIS DATE 05/08/06 Medications albuterol 0.083% inhalation solution 3 mL = 2.5 mg, Inhalation, Every 6 hours, # 360 mL, 11 Refills, Maintenance, 07/17/22 11:50:00 EDT,Solution, [facility] #[id number], 152, cm, 07/12/22 13:07:00 EDT, Height, 175.5, [...] 01/23/22 17:08:00 EDT, Route to Pharmacy Electronically, [facility] #[id number], 152, cm, 06/17/21 8:41:00 EDT, Height, 175.5, kg, 08/09/20 0:18:00... Start Date: 01/23/22 Stop Date: 01/07/25 Status: Ordered gabapentin 100 mg oral capsule 100 mg, 1, capsule, By Mouth, 3 times a day, # 90 capsule, Refills 0, Tot. Refills 0, Maintenance, 07/12/22 14:00:00 EDT, Route to Pharmacy Electronically, [facility] #[id number], Partial fill upon patient request if the prescription is for a kelly... Start Date: 07/12/22 Status: Ordered lisinopril 5 mg oral tablet 5 mg, 1, tablet, By Mouth, Daily, # 30 tablet, Refills 2, Tot. Refills 2, Maintenance, 07/17/22 17:03:00 EDT, Route to Pharmacy Electronically, [facility] #[id number], Please disregard 10mg dosing, 152, cm, 07/12/22 13:07:00 EDT, Height, 175.5, k... Start Date: 07/17/22 Status: Ordered metFORMIN 1000 mg oral tablet 1 tablet = 1,000 mg, By Mouth, 2 times a day, # 60 tablet, 11 Refills, Maintenance, 07/12/22 13:42:00 EDT, Tablet, [facility] #[id number], cancel previous metformin scripts, 152, cm, 07/12/22 [...] 09/01/22 15:06:00 EDT, Route to Pharmacy Electronically, [facility] #[id number], Partial... Start Date: 09/01/22 Status: Ordered rolling [...] 11 Refills, Maintenance, 04/21/22 12:34:00 EDT, Powder, [facility] #[id number], Partial fill upon patient request if the prescription is for a schedule II opioid drug., 1 puffs... Start Date: 04/21/22 Stop Date: 04/16/23 Status: Ordered Trulicity Pen 0.75 mg/0.5 mL subcutaneous solution 0.5 mL = 0.75 mg, Subcutaneous Injection, Every week, rotate injection sites, # 2 mL, 3 Refills, Maintenance, 07/12/22 14:01:00 EDT, Solution, [facility] #[id number], Partial fill upon patient request if the prescription is for a schedule II opio... Start Date: 07/12/22 Status: Ordered Vitamin D3 2000 intl units oral capsule 1 capsule = 2,000 International_Units, By Mouth, Daily, # 60 capsule, 2 Refills, Maintenance, 07/17/22 16:56:00 EDT, Capsule, [facility] #[id number], Partial fill upon patient request if the [...] Confirmed Active DMII Confirmed Active 1Dr. Tunde Doylecu [phone], Blanket. Dx 06/07/09 Social History Social History Type Response Smoking Status Former smoker, quit more than 30 days ago entered on: 06/11/19 Sex Patient Care team information Care Team Personnel Name: Maty Valencia RN Position: [facility] RN Member Role: Primary Care Nurse Name: Danya Roman RN Position: [facility] AMB Nurse Member Role: Primary Care Nurse Name: Ashley Brownlee RN Position: [facility] ED RN W/OE and Tasks Member Role: Primary Care Nurse Name: Becca Enrique RN Position: [facility] RN Member Role: Primary Care Nurse Name: Zuly THOMSON) Elma Position: S RN Member Role: Primary Care Nurse Name: Amanda Huerta RN Position: [facility] RN Member Role: Primary Care Nurse Name: Hazel Valadez DO Position: [facility] Resident Member Role: PCP Address: Address: [address] [place] [address] [place] [address]- [place] Name: Juli Calles RN Position: S RN Member Role: Primary Care Nurse Care Team Related Persons Name: ZULEIMA MCKEON Address: [place] [address] Name: LUCITA TEMPLE Address: home Name: LARA TEMPLE Address: home [address] [place] [id number] Name: JUSTIN HINES
--- OUTSIDE RECORDS SUMMARY | 2024-04-04 10:12 | XMS_ITS | Continuity of Care Document ---
Author Organization [facility] Address [address] [place] [address]- Care Team Providers Care Ceramic Tile Setter Name Role Phone Allyson ARMSTRONG Hazel Primary Care Physician Encounter [facility] Date(s): 03/20/23 - 04/19/23 [facility] [address] [place] [address]- Allergies, Adverse Reactions, Alerts Substance Reaction Severity [...] Reason: Med Not Available 2Result Comment: [10/30/2014] [id number] 3Admin Note: VIS GIVEN DATED: 04/29/12 4Admin Note: vis given 05/23/11 5Admin Note: VIS GIVEN-DATED 06/07/10 6Result Comment: in error 7Admin Note: vis give dated 08/03/09 8Admin Note: VIS GIVEN VIS DATE 05/08/06 Medications albuterol 0.083% inhalation solution 3 mL = 2.5 mg, Inhalation, Every 6 hours, # 360 mL, 11 Refills, Maintenance, 07/17/22 11:50:00 EDT,Solution, [facility] #[id number], 152, cm, 07/12/22 13:07:00 EDT, Height, 175.5, [...] 03/31/23 21:58:00 EDT, Route to Pharmacy Electronically, [facility] #[id number], Partial fill upon patient request if the [...] 01/07/25 17:08:00 EDT, Route to Pharmacy Electronically, [facility] #[id number], 149.86, cm, 02/09/23 15:52:00 EDT, Height, 172.3, kg, 11/26/22 5:4... Start Date: 01/07/25 Stop Date: 12/23/27 Status: Ordered furosemide 40 mg oral tablet 40 mg, 1, tablet, By Mouth, 2 times a day, for 90 days, # 180 tablet, Refills 11, Tot. Refills 11, Hard Stop 01/07/25 17:08:00 EDT, 01/23/22 17:08:00 EDT, Route to Pharmacy Electronically, [facility] #[id number], 152, cm, 06/17/21 8:41:00 EDT, He... Start Date: 01/23/22 Stop Date: 01/07/25 Status: Ordered gabapentin 100 mg oral capsule 100 mg, 1, capsule, By Mouth, 3 times a day, # 90 capsule, Refills 0, Tot. Refills 0, Maintenance, 12/14/22 17:21:00 EST, Route to Pharmacy Electronically, [facility] #[id number], Partial fill upon patient request if the prescription is for a kelly... Start Date: 12/14/22 Status: Ordered ibuprofen 800 mg oral tablet 800 mg, 1, tablet, By Mouth, 3 times a day, for pain with food or milk, # 30 tablet, Refills 0, Tot. Refills 0, Maintenance, 02/09/23 17:06:00 EDT, Route to Pharmacy Electronically, [facility] #[id number], Partial fill upon patient request if th... Start Date: 02/09/23 Status: Ordered metFORMIN 1000 mg oral tablet 1 tablet = 1,000 mg, By Mouth, 2 times a day, # 60 tablet, 11 Refills, Maintenance, 07/12/22 13:42:00 EDT, Tablet, [facility] #[id number], cancel previous metformin scripts, 152, cm, 07/12/22 13:07:00 EDT, Height, 175.5, kg, 08/09/20 0:18:00 EDT,... Start Date: 07/12/22 Status: Ordered multivitamin Multiple Vitamins oral capsule 1 capsule, By Mouth, Daily, # 30 capsule, 0 Refills, Maintenance, 03/23/23 7:59:00 EDT, Capsule, [facility] #[id number], Partial fill upon patient request if the [...] 11 Refills, Maintenance, 04/21/22 12:34:00 EDT, Powder, [facility] #[id number], Partial fill upon patient request if the prescription is for a schedule II opioid drug., 1 puffs... Start Date: 04/21/22 Stop Date: 04/16/23 Status: Ordered Trulicity Pen 0.75 mg/0.5 mL subcutaneous solution 0.5 mL = 0.75 mg, Subcutaneous Injection, Every week, rotate injection sites, # 2 mL, 3 Refills, Maintenance, 07/12/22 14:01:00 EDT, Solution, [facility] #[id number], Partial fill upon patient request if the prescription is for a schedule II opio... Start Date: 07/12/22 Status: Ordered Vitamin D3 2000 intl units oral capsule 1 capsule = 2,000 International_Units, By Mouth, Daily, # 60 capsule, 2 Refills, Maintenance, 07/17/22 16:56:00 EDT, Capsule, [facility] #[id number], Partial fill upon patient request if the [...] Confirmed Active DMII Confirmed Active 1DrRyder Wade [phone], Norma. Dx 06/07/09 Social History Social History Type Response Smoking Status Former smoker, quit more than 30 days ago entered on: 06/11/19 Sex Patient Care team information Care Team Personnel Name: Jayna Sandhu RN Position: [facility] RN Member Role: Primary Care Nurse Name: Maty Valencia RN Position: [facility] RN Member Role: Primary Care Nurse Name: Roger Peña RN Position: [facility] RN Supv Member Role: Primary Care Nurse Name: Mihir Jackson RN Position: [facility] RN Member Role: Primary Care Nurse Name: Tessy Jaramillo RN Position: [facility] RN Member Role: Primary Care Nurse Name: Danya Roman RN Position: [facility] SN RN Member Role: Primary Care Nurse Name: Kem RNAshley Position: [facility] ED RN W/OE and Tasks Member Role: Primary Care Nurse Name: Becca Enrique RN Position: [facility] RN Member Role: Primary Care Nurse Name: Elma Caruso (INSTR) Position: [facility] RN Member Role: Primary Care Nurse Name: Amanda Huerta RN Position: [facility] RN Member Role: Primary Care Nurse Name: Yessica Stock Position: [facility] RN Member Role: Primary Care Nurse Name: Hazel Valadez DO Position: [facility] Resident Member Role: PCP Address: Address: [address] [place] [address] [place], [place] [address] Name: Radha Bravo RN Position: [facility] RN Member Role: Primary Care Nurse Name: Juli Calles RN Position: [facility] RN Member Role: Primary Care Nurse Care Team Related Persons Name: ZULEIMA MCKEON Address: [place] [address] Name: LUCITA TEMPLE Address: home Name: LARA TEMPLE Name: JUSTIN HINES
--- OUTSIDE RECORDS SUMMARY | 2024-04-04 10:12 | XMS_ITS | Continuity of Care Document ---
Author Organization [facility] Address [address] [place] [address]- Care Team Providers Care Grinding Machine Tender Name Role Phone Joey Steele MD Primary Care Physician Encounter [facility] [place] Date(s): 07/01/21 - 08/07/21 [facility] [address] [place] [address]- Attending Physician: Enedina Price NP Admitting Physician: [...] Reason: Med Not Available 3Result Comment: [10/30/2014] [id number] 4Admin Note: VIS GIVEN DATED: 04/29/12 5Admin Note: vis given 05/23/11 6Admin Note: VIS GIVEN-DATED 06/07/10 7Admin Note: vis give dated 08/03/09 8Admin Note: VIS GIVEN VIS DATE 05/08/06 Medications albuterol 0.083% inhalation solution 3 mL = 2.5 mg, Inhalation, Every 6 hours, # 360 mL, 11 Refills, Maintenance, 08/29/20 20:48:00 EST,Solution, [facility], 152, cm, 08/13/20 13:28:00 EDT, Height, 175.5, kg, 08/09/20 0:18:00 EDT, Dry Weight Start Date: 08/29/20 Stop Date: 08/24/21 Status: Ordered albuterol CFC free 90 mcg/inh inhalation aerosol 2, puffs, Inhalation, 4 times a day, PRN, FOR WHEEZING AND SHORTNESS OF BREATH, # 1 each, Refills 5, Tot. Refills 5, Maintenance, 08/24/21 20:48:00 EDT, Route to Pharmacy Electronically, [id number], [facility] #[id number]... Start Date: 08/24/21 Stop Date: 02/20/22 Status: Ordered duloxetine 60 mg oral enteric coated capsule 1 capsule = 60 mg, By Mouth, Daily, # 30 capsule, 10 Refills, Maintenance, 10/14/20 15:08:00 EST, EC Capsule, [facility] #[id number], Partial fill upon patient request if the prescription is fora schedule II opioid drug., 152, cm, 08/13/20 13:28... Start Date: 10/14/20 Status: Ordered furosemide 40 mg oral tablet 40 mg, 1, tablet, By Mouth, 2 times a day, # 60 tablet, Refills 10, Tot. Refills 10, Maintenance, 10/14/20 15:09:00 EST, Route to Pharmacy Electronically, [facility] #[id number], 152, cm, 08/13/20 13:28:00 EDT, Height, 175.5, kg, 08/09/20 0:18:00... Start Date: 10/14/20 Stop Date: 09/09/21 Status: Ordered meloxicam 15 mg oral tablet 1 tablet = 15 mg, By Mouth, Daily, For knee and back pain, # 30 tablet, 2 Refills, Maintenance, 06/17/21 9:06:00 EDT, Tablet, [facility] #[id number], Partial fill upon patient request if the prescription is for a schedule II opioid drug., 152, cm... Start Date: 06/17/21 Status: Ordered metFORMIN 1000 mg oral tablet 1 tablet = 1,000 mg, By Mouth, 2 times a day, # 60 tablet, 11 Refills, Maintenance, 06/17/21 9:12:00 EDT, Tablet, [facility] #[id number], cancel previous metformin scripts, 152, cm, 06/17/21 [...] 10 Refills, Maintenance, 10/14/20 15:09:00 EST, Tablet, [facility] #[id number], 152, cm, 08/13/20 13:28:00 EDT, Height, 175.5, [...] 2 Refills, Maintenance, 11/02/20 10:14:00 EST, Capsule, [facility] #[id number], Partial fill upon patient request if the [...] Active Osteoarthritis(Confirmed) Active DMII(Confirmed) Active 1DrRyder Wade [phone], Norma. Dx 06/07/09 Social History Social History Type Response Smoking Status Former smoker, quit more than 30 days ago entered on: 06/11/19 Sex
--- OUTSIDE RECORDS SUMMARY | 2024-04-04 10:12 | XMS_ITS | Continuity of Care Document ---
Author Organization [facility] Address [address] [place] [address]- Care Team Providers Care Follow Up Manager Name Role Phone Hazel Valadez DO Primary Care Physician Encounter [facility] Date(s): 08/03/23 - 09/08/23 [facility] [address] [place] [address]- Attending Physician: Sahil Tripp MD Admitting Physician: Sahil Tripp MD Allergies, Adverse Reactions, Alerts Substance Reaction [...] Reason: Med Not Available 2Result Comment: [10/30/2014] [id number] 3Admin Note: VIS GIVEN DATED: 04/29/12 4Admin Note: vis given 05/23/11 5Admin Note: VIS GIVEN-DATED 06/07/10 6Admin Note: vis give dated 08/03/09 7Admin Note: VIS GIVEN VIS DATE 05/08/06 Medications Advair Diskus 250 mcg-50 mcg inhalation powder 1, puffs, Inhalation, 2 times a day, # 28 each, Refills 0, Tot. Refills 0, Maintenance, 09/06/23 14:10:00 EST, Powder, Route to Pharmacy Electronically, [id number], [facility] #[id number], 153, cm, 08/19/23 2:04:00 EDT,... Start Date: 09/06/23 Status: Ordered albuterol 0.083% inhalation solution 3 mL = 2.5 mg, Inhalation, Every 6 hours, # 360 mL, 11 Refills, Maintenance, 09/06/23 8:33:00 EST, Solution, [facility] #[id number], 153, cm, 08/19/23 2:04:00 EDT, Height, 171.8, [...] 03/31/23 21:58:00 EDT, Route to Pharmacy Electronically, [facility] #[id number], Partial fill upon patient request if the [...] 01/07/25 17:08:00 EDT, Route to Pharmacy Electronically, [facility] #[id number], 149.86, cm, 02/09/23 15:52:00 EDT, Height, 172.3, kg, 11/26/22 5:4... Start Date: 01/07/25 Stop Date: 12/23/27 Status: Ordered furosemide 40 mg oral tablet 40 mg, 1, tablet, By Mouth, 2 times a day, for 90 days, # 180 tablet, Refills 11, Tot. Refills 11, Hard Stop 01/07/25 17:08:00 EDT, 01/23/22 17:08:00 EDT, Route to Pharmacy Electronically, [facility] #[id number], 152, cm, 06/17/21 8:41:00 EDT, He... Start Date: 01/23/22 Stop Date: 01/07/25 Status: Ordered gabapentin 100 mg oral capsule 100 mg, 1, capsule, By Mouth, 3 times a day, # 90 capsule, Refills 0, Tot. Refills 0, Maintenance, 12/14/22 17:21:00 EST, Route to Pharmacy Electronically, [facility] #[id number], Partial fill upon patient request if the prescription is for a kelly... Start Date: 12/14/22 Status: Ordered ibuprofen 800 mg oral tablet 800 mg, 1, tablet, By Mouth, 3 times a day, for pain with food or milk, # 30 tablet, Refills 0, Tot. Refills 0, Maintenance, 02/09/23 17:06:00 EDT, Route to Pharmacy Electronically, [facility] #[id number], Partial fill upon patient request if th... Start Date: 02/09/23 Status: Ordered metFORMIN 1000 mg oral tablet 1 tablet = 1,000 mg, By Mouth, 2 times a day, # 60 tablet, 11 Refills, Maintenance, 07/12/22 13:42:00 EDT, Tablet, [facility] #[id number], cancel previous metformin scripts, 152, cm, 07/12/22 13:07:00 EDT, Height, 175.5, kg, 08/09/20 0:18:00 EDT,... Start Date: 07/12/22 Status: Ordered multivitamin Multiple Vitamins oral capsule 1 capsule, By Mouth, Daily, # 30 capsule, 0 Refills, Maintenance, 09/06/23 8:33:00 EST, Capsule, [facility] #[id number], Partial fill upon patient request if the [...] 2 Refills, Maintenance, 07/17/22 16:56:00 EDT, Capsule, [facility] #[id number], Partial fill upon patient request if the [...] Confirmed Active DMII Confirmed Active 1DrRyder Wade [phone], Norma. Dx 06/07/09 Social History Social History [...] Supv Member Role: Primary Care Nurse Name: Manuel WARRENMihir Position: [facility] RN Member Role: Primary Care Nurse Name: Danya Roman RN Position: [facility] SN RN Member Role: Primary Care Nurse Name: Ashley Brownlee RN Position: [facility] ED RN W/OE and Tasks Member Role: Primary Care Nurse Name: Elma Caruso (INSTR) Position: [facility] RN Member Role: Primary Care Nurse Name: Amanda Huerta RN Position: [facility] RN Member Role: Primary Care Nurse Name: Yessica Stock Position: [facility] RN Member Role: Primary Care Nurse Name: Hazel Valadez DO Position: [facility] Resident Member Role: PCP Address: Address: [address] [place] [address] [place] [address]- Name: Juli Calles RN Position: [facility] RN Member Role: Primary Care Nurse Care Team Related Persons Name: NABILA OQUENDO Name: ZULEIMA MCKEON Address: [place] [address] Name: LUCITA TEMPLE Address: home Name: LARA TEMPLE Address: home [address] [place] [id number] Name: JUSTIN HINES
--- OUTSIDE RECORDS SUMMARY | 2024-04-04 10:12 | XMS_ITS | Continuity of Care Document ---
Author Organization [facility] ter Address [address] [place] [address]- Care Team Providers Care Cutter Gas Name Role Phone Allyson ARMSTRONGHazel Primary Care Physician [phone] Encounter [facility] Date(s): 08/18/23 - 08/19/[address] [address]- Encounter Diagnosis Muscle spasm(Final) - 08/19/23 Discharge Disposition: A-D/C Home Attending Physician: Bobbi Bird MD Admitting Physician: Bobbi Bird MD Referring Physician: Not on Staff, Referring [...] Reason: Med Not Available 2Result Comment: [10/30/2014] [id number] 3Admin Note: VIS GIVEN DATED: 04/29/12 4Admin Note: vis given 05/23/11 5Admin Note: VIS GIVEN-DATED 06/07/10 6Admin Note: vis give dated 08/03/09 7Admin Note: VIS GIVEN VIS DATE 05/08/06 Medications albuterol 0.083% inhalation solution 3 mL = 2.5 mg, Inhalation, Every 6 hours, # 360 mL, 11 Refills, Maintenance, 07/17/22 11:50:00 EDT,Solution, [facility] #[id number], 152, cm, 07/12/22 13:07:00 EDT, Height, 175.5, [...] 03/31/23 21:58:00 EDT, Route to Pharmacy Electronically, [facility] #[id number], Partial fill upon patient request if the [...] 2 Diabetes Mellitus, 07/12/22 16:40:00 EDT, [facility] joredn 2, Supply, 152, cm, 07/12/22 13:07:00 EDT, [...] 01/07/25 17:08:00 EDT, Route to Pharmacy Electronically, [facility] #[id number], 149.86, cm, 02/09/23 15:52:00 EDT, Height, 172.3, kg, 11/26/22 5:4... Start Date: 01/07/25 Stop Date: 12/23/27 Status: Ordered furosemide 40 mg oral tablet 40 mg, 1, tablet, By Mouth, 2 times a day, for 90 days, # 180 tablet, Refills 11, Tot. Refills 11, Hard Stop 01/07/25 17:08:00 EDT, 01/23/22 17:08:00 EDT, Route to Pharmacy Electronically, [facility] #[id number], 152, cm, 06/17/21 8:41:00 EDT, He... Start Date: 01/23/22 Stop Date: 01/07/25 Status: Ordered gabapentin 100 mg oral capsule 100 mg, 1, capsule, By Mouth, 3 times a day, # 90 capsule, Refills 0, Tot. Refills 0, Maintenance, 12/14/22 17:21:00 EST, Route to Pharmacy Electronically, [facility] #[id number], Partial fill upon patient request if the prescription is for a kelly... Start Date: 12/14/22 Status: Ordered ibuprofen 800 mg oral tablet 800 mg, 1, tablet, By Mouth, 3 times a day, for pain with food or milk, # 30 tablet, Refills 0, Tot. Refills 0, Maintenance, 02/09/23 17:06:00 EDT, Route to Pharmacy Electronically, [facility] #[id number], Partial fill upon patient request if th... Start Date: 02/09/23 Status: Ordered metFORMIN 1000 mg oral tablet 1 tablet = 1,000 mg, By Mouth, 2 times a day, # 60 tablet, 11 Refills, Maintenance, 07/12/22 13:42:00 EDT, Tablet, [facility] #[id number], cancel previous metformin scripts, 152, cm, 07/12/22 13:07:00 EDT, Height, 175.5, kg, 08/09/20 0:18:00 EDT,... Start Date: 07/12/22 Status: Ordered MorPHINE Inj 4 mg, Injection, IV Push Slowly, Every 3 hours for 7 days, PRN for Pain , Moderate, Routine, 08/18/23 22:05:00 EDT, Stop date 08/25/23 22:04:00 EDT Start Date: 08/18/23 Stop Date: 08/19/23 Status: Discontinued multivitamin Multiple Vitamins oral capsule 1 capsule, By Mouth, Daily, # 30 capsule, 0 Refills, Maintenance, 03/23/23 7:59:00 EDT, Capsule, [facility] #45274, Partial fill upon patient request if the [...] 11 Refills, Maintenance, 04/21/22 12:34:00 EDT, Powder, [facility] #[id number], Partial fill upon patient request if the prescription is for a schedule II opioid drug., 1 puffs... Start Date: 04/21/22 Stop Date: 04/16/23 Status: Ordered Vitamin D3 2000 intl units oral capsule 1 capsule = 2,000 International_Units, By Mouth, Daily, # 60 capsule, 2 Refills, Maintenance, 07/17/22 16:56:00 EDT, Capsule, [facility] #[id number], Partial fill upon patient request if the [...] Confirmed Active DMII Confirmed Active Cy Wade [phone]. Dx 06/07/09 Results Radiology Reports * Exam Date Time Procedure Performing Provider Status 08/18/23 11:[address] Abd/Pelvis W/ IV Contrast Only Cyrankowski , Judi; Auth (Verified) Notes: (CT Abd/Pelvis W/ IV Contrast Only) Reason For Exam: LLQ abdominal pain;Other: RESULT: CT Abd/Pelvis W/ IV Contrast Only CT Abd/Pelvis W/ IV Contrast Only Hx of Present Illness: pt stated sharp pain in the middle of her back, so severe that she had to lay down, took 600mg motrin and had no improvement. pain now radiating to her abd. I need to check ifI am . I feel dizzy. No period since December. It feel like contractions ; Reason: Other:; LLQabdominal pain; Clinical Question(s): Diverticulitis; Order Comment: TECHNIQUE: Spiral CT through the abdomen and pelvis with IV contrast formatted in 3 planes. 100 cc of Omnipaque 300 was administered intravenously. This study was performed without oral contrast. Weight-based protocol using automatic tube modulation was used to optimize exposure parameters. CTDIvol Body: 41.90 mGy, DLP Body: 2108 mGy*cm. COMPARISON: None. FINDINGS: Wire Coating Machine Operator View Findings, Lines and Tubes: None. Visualized Chest: Lung bases are clear. No pleural effusion. The heart is normal in size. No pericardial effusion. Diaphragm: Normal. Liver: Diffuse low-attenuation throughout the liver parenchyma consistent with hepatic steatosis. No evidence of mass. Gallbladder: No CT evidence of gallbladder pathology. Bile ducts: No biliary ductal dilation. Spleen: Normal. Pancreas: Normal. Adrenal glands: Normal. Kidneys and ureters: No hydronephrosis, stones, or suspicious masses. No evidence of pyelonephritis. Bladder: Normal. Reproductive organs: Unremarkable. Stomach, small bowel, and large bowel: The stomach and small bowel loops are nondistended. There isno evidence for bowel obstruction. No bowel wall thickening to indicate diverticulitis or colitis. No retention of stool to indicate constipation. Appendix: Normal. Peritoneum and retroperitoneum: No ascites or pneumoperitoneum. No omental or mesenteric lesions. Lymph nodes: No enlarged lymph nodes. Blood vessels: Normal. No aneurysm. No evidence of venous thrombosis. Abdominal and pelvic wall: Unremarkable. Bones: No acute abnormality. There is mild degenerative disc space narrowing throughout the lower thoracic and lumbar spine. No compression fracture. IMPRESSION: No acute intra-abdominal pathology is identified to account for reported clinical complaint. Mild degenerative changes in the lower thoracic and lumbar spine. Incidental diffuse hepatic steatosis. WSN: [id number] Ordering Physician: Flory Rosenthal Dictated By: Delmer Castro MD Dictated Date/Time: 08/18/23 11:40 p Reviewed By: Delmer Castro MD Signed By: Delmer Castro MD Signed Date/Time: 08/18/23 11:40 pm Transcribed By: JACOB Transcribed Date/Time: 08/18/23 11:35 pm Vital Signs Most recent to oldest [Reference Range]: 1 2 3 Height 153 cm (08/19/23 2:04 AM) 153 cm (08/18/23 8:38 PM) Weight 171.8 kg (08/19/23 2:04 AM) 171.8 kg (08/18/23 8:38 PM) Oxygen Saturation [94-100 %] 98 % (08/19/23 2:04 AM) 94 % (08/19/23 12:50 AM) 94 % (08/18/23 10:28 PM) Pulse Rate [55-90 bpm] 80 bpm (08/19/23 2:04 AM) 86 bpm (08/19/23 12:50 AM) 83 bpm (08/18/23 10:28 PM) Blood Pressure [90-138/55-84 mm Hg] 125/78mm Hg (08/19/23 2:04 AM) 127/68mm Hg (08/19/23 12:50 AM) 103/58mm Hg (08/18/23 10:28 PM) Respiratory Rate [16-30 br/min] 25 br/min (08/19/23 2:04 AM) 20 br/min (08/19/23 12:50 AM) 18 br/min (08/18/23 10:50 PM) Temperature [96.8-100.4 DegF] 98.6 DegF (08/19/23 2:04 AM) 97.5 DegF (08/18/23 10:28 PM) 98.6 DegF (08/18/23 8:28 PM) Liters per Minute 2 L/min (08/19/23 2:04 AM) 2 L/min (08/19/23 12:50 AM) 2 L/min (08/18/23 10:28 PM) Mode of Delivery (Oxygen) Nasal cannula (08/19/23 2:04 AM) Nasal cannula (08/19/23 12:50 AM) Nasal cannula (08/18/23 10:28 PM) Blood pressure sites Arm, right (08/19/23 12:50 AM) Arm, right (08/18/23 10:28 PM) Arm, right (08/18/23 8:28 PM) Temperature Route Oral (08/19/23 2:04 AM) Oral (08/18/23 10:28 PM) Oral (08/18/23 8:28 PM) Dry Weight 171.8 kg (08/19/23 2:04 AM) 171.8 kg (08/18/23 8:38 PM) 171.8 kg (08/18/23 8:32 PM) Social History Social History Type Response Smoking Status Former smoker, quit more than 30 days ago entered on: 06/11/19 Sex Patient Care team information Care Team Personnel Name: Becca Crain RN Position: [facility] RN Member Role: Primary Care Nurse Name: Jayna Sandhu RN Position: [facility] RN Member Role: Primary Care Nurse Name: Maty Valencia RN Position: [facility] RN Member Role: Primary Care Nurse Name: Roger Peña RN Position: [facility] RN Supv Member Role: Primary Care Nurse Name: Mihir Jackson RN Position: [facility] RN Member Role: Primary Care Nurse Name: Danya Roman RN Position: [facility] SN RN Member Role: Primary Care Nurse Name: Ashley Brownlee RN Position: [facility] ED RN W/OE and Tasks Member Role: Primary Care Nurse Name: Elma Caruso (INSTR) Position: [facility] RN Member Role: Primary Care Nurse Name: Amanda Huerta RN Position: [facility] RN Member Role: Primary Care Nurse Name: Yessica Stock Position: [facility] RN Member Role: Primary Care Nurse Name: Hazel Valadez DO Position: [facility] Resident Member Role: PCP Address: Address: [address] [place] [address] [place] [address]- Name: Juli Calles RN Position: S RN Member Role: Primary Care Nurse Name: Giovani Willson MD Position: [facility] Resident Member Role: ED Resident Address: Address: [address] [place] [address] Name: Gustavo Lucasdelaney Position: [facility] ED RN W/OE and Tasks Member Role: Patient Care Provider Name: Bobbi Bird MD Position: [facility] ED Medicine MD Member Role: ED Attending Physician Address: Address: [address] [place] [address] Name: Antwan Graves Position: [facility] ED TA [facility] Member Role: Patient Care Provider Care Team Related Persons Name: ZULEIMA MCKEON Address: [place] [address] Name: LUCITA TEMPLE Address: home Name: LARA TEMPLE Name: JUSTIN HINES
--- OUTSIDE RECORDS SUMMARY | 2024-04-04 10:12 | XMS_ITS | Continuity of Care Document ---
Author Organization [facility] Address [address] [place] [address]- Care Team Providers Care Towel Folder Name Role Phone Joey Steele MD Primary Care Physician [phone] [place] [facility] [place]/11/21 - 04/13/21 [facility] [address] [place], [place] [address] Attending Physician: Not on Staff, Attending MD Referring Physician: Joey Steele MD Allergies, [...] Reason: Med Not Available 2Result Comment: [10/30/2014] [id number] 3Admin Note: VIS GIVEN DATED: 04/29/12 4Admin Note: vis given 05/23/11 5Admin Note: VIS GIVEN-DATED 06/07/10 6Admin Note: vis give dated 08/03/09 7Admin Note: VIS GIVEN VIS DATE 05/08/06 Medications albuterol 0.083% inhalation solution 3 mL = 2.5 mg, Inhalation, Every 6 hours, # 360 mL, 11 Refills, Maintenance, 08/29/20 20:48:00 EST,Solution, [facility], 152, cm, 08/13/20 13:28:00 [...] 08/29/20 20:48:00 EST, Route to Pharmacy Electronically, [id number]... Start Date: 08/29/20 Stop Date: 08/24/21 Status: Ordered albuterol CFC free 90 mcg/inh inhalation aerosol 2, puffs, Inhalation, 4 times a day, PRN, FOR WHEEZING AND SHORTNESS OF BREATH, # 1 each, Refills 5, Tot. Refills 5, Maintenance, 08/24/21 20:48:00 EDT, Route to Pharmacy Electronically, [id number], [facility] #[id number]... Start Date: 08/24/21 Stop Date: 02/20/22 [...] Refills, Maintenance, 10/14/20 15:08:00 EST, EC Capsule, [facility] #[id number], Partial fill upon patient request if the prescription is fora schedule II opioid drug., 152, cm, 08/13/20 13:28... Start Date: 10/14/20 Status: Ordered furosemide 40 mg oral tablet 40 mg, 1, tablet, By Mouth, 2 times a day, # 60 tablet, Refills 10, Tot. Refills 10, Maintenance, 10/14/20 15:09:00 EST, Route to Pharmacy Electronically, [facility] #[id number], 152, cm, 08/13/20 13:28:00 EDT, Height, 175.5, kg, 08/09/20 0:18:00... Start Date: 10/14/20 Stop Date: 09/09/21 Status: Ordered indomethacin 50 mg oral capsule 1 capsule = 50 mg, By Mouth, 3 times a day, PRN for gout pain, # 15 capsule, 0 Refills, Maintenance, 03/16/21 16:28:00 EDT, Capsule, [facility] #[id number], Partial fill upon patient request if the prescription is for a schedule II opioid drug.,... Start Date: 03/16/21 Stop Date: 03/21/21 Status: Ordered metFORMIN 1000 mg oral tablet 1 tablet = 1,000 mg, By Mouth, 2 times a day, takes once daily for 2 weeks, then increase to BID, #60 tablet, 11 Refills, Maintenance, 10/14/20 15:09:00 EST, Tablet, [facility] #[id number], 152, cm, 08/13/20 13:28:00 EDT, Height, 175.5, kg, 07/29... Start Date: 10/14/20 Status: Ordered morphine 15 mg oral tablet, immediate release 1 tablet = 15 mg, By Mouth, Every 4 hours, PRN as needed for pain, # 10 tablet, 0 Refills, Maintenance, 03/12/21 1:49:00 EDT, Tablet, [facility] #[id number], Partial fill upon patient request, 152, cm, [...] 10 Refills, Maintenance, 10/14/20 15:09:00 EST, Tablet, [facility] #[id number], 152, cm, 08/13/20 13:28:00 EDT, Height, 175.5, kg, 08/09/20 0:18:00 EDT, Dry Weight Start Date: 10/14/20 Status: Ordered Vitamin D3 2000 intl units oral capsule 1 capsule = 2,000 International_Units, By Mouth, Daily, # 60 capsule, 2 Refills, Maintenance, 11/02/20 10:14:00 EST, Capsule, [facility] #[id number], Partial fill upon patient request if the [...] home CPAP(Confirmed) Active DMII(Confirmed) Active 1DrRyder Wade [phone], Norm[place]. Dx 06/07/09 Social History Social History Type Response Smoking Status Former smoker, quit more than 30 days ago entered on: 06/11/19 Sex
--- OUTSIDE RECORDS SUMMARY | 2024-04-04 10:12 | XMS_ITS | Continuity of Care Document ---
Author Organization [facility] Address [address] [place] [address]- Care Team Providers Care Heavy Truck Technician Name Role Phone Hazel Valadez DO Primary Care Physician Encounter [facility] [place] Date(s): 10/04/23 - 12/14/23 [facility] [address] [place] [id number] Attending Physician: Not on Staff, Attending MD [...] Reason: Med Not Available 2Result Comment: [10/30/2014] [id number] 3Admin Note: VIS GIVEN DATED: 04/29/12 4Admin Note: vis given 05/23/11 5Admin Note: VIS GIVEN-DATED 06/07/10 6Admin Note: vis give dated 08/03/09 7Admin Note: VIS GIVEN VIS DATE 05/08/06 Medications Advair Diskus 250 mcg-50 mcg inhalation powder 1, puffs, Inhalation, 2 times a day, # 28 each, Refills 0, Tot. Refills 0, Maintenance, 09/06/23 14:10:00 EST, Powder, Route to Pharmacy Electronically, [id number], [facility] #[id number], 153, cm, 08/19/23 2:04:00 EDT,... Start Date: 09/06/23 Status: Ordered albuterol 0.083% inhalation solution 3 mL = 2.5 mg, Inhalation, Every 6 hours, # 360 mL, 11 Refills, Maintenance, 09/06/23 8:33:00 EST, Solution, [facility] #[id number], 153, cm, 08/19/23 2:04:00 EDT, Height, 171.8, [...] 01/07/25 17:08:00 EDT, Route to Pharmacy Electronically, [facility] #[id number], 149.86, cm, 02/09/23 15:52:00 EDT, Height, 172.3, kg, 11/26/22 5:4... Start Date: 01/07/25 Stop Date: 12/23/27 Status: Ordered gabapentin 100 mg oral capsule 100 mg, 1, capsule, By Mouth, 3 times a day, # 90 capsule, Refills 0, Tot. Refills 0, Maintenance, 12/14/22 17:21:00 EST, Route to Pharmacy Electronically, [facility] #[id number], Partial fill upon patient request if the prescription is for a kelly... Start Date: 12/14/22 Status: Ordered ibuprofen 600 mg oral tablet 600 mg, 1, tablet, By Mouth, 3 times a day, for 14 days, # 42 tablet, Refills 0, Tot. Refills 0, Acute 12/20/23 13:17:00 EST, 12/06/23 13:17:00 EST, Route to Pharmacy Electronically, [facility] #[id number], Partial fill upon patient request if th... Start Date: 12/06/23 Stop Date: 12/20/23 Status: Ordered metFORMIN 1000 mg oral tablet 1 tablet = 1,000 mg, By Mouth, 2 times a day, # 60 tablet, 11 Refills, Maintenance, 09/24/23 9:06:00 EST, Tablet, [facility] #[id number], cancel previous metformin scripts, 153, cm, 09/16/23 13:33:00 EST, Height, 176, kg, 09/16/23 13:33:00 EST, D... Start Date: 09/24/23 Status: Ordered multivitamin Multiple Vitamins oral capsule 1 capsule, By Mouth, Daily, # 30 capsule, 0 Refills, Maintenance, 09/06/23 8:33:00 EST, Capsule, [facility] #[id number], Partial fill upon patient request if the [...] 2 Refills, Maintenance, 09/24/23 9:06:00 EST, Capsule, [facility] #[id number], Partial fill upon patient request if the [...] Active DMII Confirmed Active 1Dr. Tunde Petcu [phone], [place]. Dx 06/07/09 Social History Social History Type Response Smoking Status Former smoker, quit more than 30 days ago entered on: 06/11/19 Sex Patient Care team information Care Team Personnel Name: Becca Crain RN Position: [facility] RN Member Role: Primary Care Nurse Name: Jayna Sandhu RN Position: [facility] RN Member Role: Primary Care Nurse Name: Maty Valencia RN Position: [facility] RN Member Role: Primary Care Nurse Name: Roger Peña RN Position: [facility] RN Supv Member Role: Primary Care Nurse Name: Mihir Jackson RN Position: [facility] RN Member Role: Primary Care Nurse Name: Danya Roman RN Position: [facility] SN RN Member Role: Primary Care Nurse Name: Ashley Brownlee RN Position: [facility] ED RN W/OE and Tasks Member Role: Primary Care Nurse Name: Amanda Huerta RN Position: [facility] RN Member Role: Primary Care Nurse Name: Yessica Stock Position: [facility] RN Member Role: Primary Care Nurse Name: Hazel Valadez DO Position: S Resident Member Role: PCP Address: Address: [address] [place] [address] [place] [address]- Name: Juli Calles RN Position: [facility] RN Member Role: Primary Care Nurse Care Team Related Persons Name: ZULEIMA MCKEON Address: [place] [address] Name: ZAYRA STREETER Address: home [address] [place] [id number] Name: LUCITA TEMPLE Address: home Name: LARA TEMPLE Address: home [address] [place] [id number] Name: JUSTIN HINES
--- OUTSIDE RECORDS SUMMARY | 2024-04-04 10:12 | XMS_ITS | Continuity of Care Document ---
Author Organization [facility] Address [address] [place] [address]- Care Team Providers Care Environmental Engineering Technician Name Role Phone Hazel Valadez DO Primary Care Physician Encounter [facility] Date(s): 09/06/23 - 10/06/23 [facility] [address] [place] [address]- Allergies, Adverse Reactions, Alerts Substance Reaction Severity [...] Reason: Med Not Available 2Result Comment: [10/30/2014] [id number] 3Admin Note: VIS GIVEN DATED: 04/29/12 4Admin Note: vis given 05/23/11 5Admin Note: VIS GIVEN-DATED 06/07/10 6Admin Note: vis give dated 08/03/09 7Admin Note: VIS GIVEN VIS DATE 05/08/06 Medications Advair Diskus 250 mcg-50 mcg inhalation powder 1, puffs, Inhalation, 2 times a day, # 28 each, Refills 0, Tot. Refills 0, Maintenance, 09/06/23 14:10:00 EST, Powder, Route to Pharmacy Electronically, [id number], [facility] #[id number], 153, cm, 08/19/23 2:04:00 EDT,... Start Date: 09/06/23 Status: Ordered albuterol 0.083% inhalation solution 3 mL = 2.5 mg, Inhalation, Every 6 hours, # 360 mL, 11 Refills, Maintenance, 09/06/23 8:33:00 EST, Solution, [facility] #[id number], 153, cm, 08/19/23 2:04:00 EDT, Height, 171.8, [...] 01/07/25 17:08:00 EDT, Route to Pharmacy Electronically, [facility] #[id number], 149.86, cm, 02/09/23 15:52:00 EDT, Height, 172.3, kg, 11/26/22 5:4... Start Date: 01/07/25 Stop Date: 12/23/27 Status: Ordered gabapentin 100 mg oral capsule 100 mg, 1, capsule, By Mouth, 3 times a day, # 90 capsule, Refills 0, Tot. Refills 0, Maintenance, 12/14/22 17:21:00 EST, Route to Pharmacy Electronically, [facility] #[id number], Partial fill upon patient request if the prescription is for a kelly... Start Date: 12/14/22 Status: Ordered metFORMIN 1000 mg oral tablet 1 tablet = 1,000 mg, By Mouth, 2 times a day, # 60 tablet, 11 Refills, Maintenance, 09/24/23 9:06:00 EST, Tablet, [facility] #[id number], cancel previous metformin scripts, 153, cm, 09/16/23 13:33:00 EST, Height, 176, kg, 09/16/23 13:33:00 EST, D... Start Date: 09/24/23 Status: Ordered multivitamin Multiple Vitamins oral capsule 1 capsule, By Mouth, Daily, # 30 capsule, 0 Refills, Maintenance, 09/06/23 8:33:00 EST, Capsule, [facility] #[id number], Partial fill upon patient request if the [...] 2 Refills, Maintenance, 09/24/23 9:06:00 EST, Capsule, [facility] #[id number], Partial fill upon patient request if the [...] Confirmed Active DMII Confirmed Active 1DrRyder Wade [phone], [place]. Dx 06/07/09 Social History Social History [...] Care Nurse Name: Roger Peña RN Position: [facility] RN Supv Member Role: Primary Care Nurse Name: Mihir Jackson RN Position: [facility] RN Member Role: Primary Care Nurse Name: Danya Roman RN Position: [facility] SN RN Member Role: Primary Care Nurse Name: Kem RNAshley Position: [facility] ED RN W/OE and Tasks Member Role: Primary Care Nurse Name: Elma Caruso (INSTR) Position: [facility] RN Member Role: Primary Care Nurse Name: Amanda Huerta RN Position: [facility] RN Member Role: Primary Care Nurse Name: Yessica Stock Position: S RN Member Role: Primary Care Nurse Name: Hazel Valadez DO Position: [facility] Resident Member Role: PCP Address: Address: [address] [place] [address] [place] [address]- Name: Juli Calles RN Position: [facility] RN Member Role: Primary Care Nurse Care Team Related Persons Name: ZULEIMA MCKEON Address: [place] [address] Name: ZAYRA STREETER Address: home [address] [address] Name: LUCITA TEMPLE Address: home Name: LARA TEMPLE Address: home [address] [address] Name: JUSTIN HINES
--- OUTSIDE RECORDS SUMMARY | 2024-04-04 10:12 | XMS_ITS | Continuity of Care Document ---
Author Organization [facility] Address [address] [place] [address]- Care Team Providers Care Rehabilitation Program Manager Name Role Phone Hazel Valadez DO Primary Care Physician [facility]counter [facility] Date(s): 02/09/23 - 03/11/23 [facility] [address], [place] [address] Allergies, Adverse Reactions, Alerts Substance Reaction [...] Reason: Med Not Available 2Result Comment: [10/30/2014] [id number] 3Admin Note: VIS GIVEN DATED: 04/29/12 4Admin Note: vis given 05/23/11 5Admin Note: VIS GIVEN-DATED 06/07/10 6Result Comment: in error 7Admin Note: vis give dated 08/03/09 8Admin Note: VIS GIVEN VIS DATE 05/08/06 Medications albuterol 0.083% inhalation solution 3 mL = 2.5 mg, Inhalation, Every 6 hours, # 360 mL, 11 Refills, Maintenance, 07/17/22 11:50:00 EDT,Solution, [facility] #[id number], 152, cm, 07/12/22 13:07:00 EDT, Height, 175.5, [...] 01/23/22 17:08:00 EDT, Route to Pharmacy Electronically, [facility] #[id number], 152, cm, 06/17/21 8:41:00 EDT, Height, 175.5, kg, 08/09/20 0:18:00... Start Date: 01/23/22 Stop Date: 01/07/25 Status: Ordered gabapentin 100 mg oral capsule 100 mg, 1, capsule, By Mouth, 3 times a day, # 90 capsule, Refills 0, Tot. Refills 0, Maintenance, 12/14/22 17:21:00 EST, Route to Pharmacy Electronically, [facility] #[id number], Partial fill upon patient request if the prescription is for a kelly... Start Date: 12/14/22 Status: Ordered ibuprofen 800 mg oral tablet 800 mg, 1, tablet, By Mouth, 3 times a day, for pain with food or milk, # 30 tablet, Refills 0, Tot. Refills 0, Maintenance, 02/09/23 17:06:00 EDT, Route to Pharmacy Electronically, [facility] #[id number], Partial fill upon patient request if th... Start Date: 02/09/23 Status: Ordered metFORMIN 1000 mg oral tablet 1 tablet = 1,000 mg, By Mouth, 2 times a day, # 60 tablet, 11 Refills, Maintenance, 07/12/22 13:42:00 EDT, Tablet, [facility] #[id number], cancel previous metformin scripts, 152, cm, 07/12/22 [...] 11 Refills, Maintenance, 04/21/22 12:34:00 EDT, Powder, [facility] #[id number], Partial fill upon patient request if the prescription is for a schedule II opioid drug., 1 puffs... Start Date: 04/21/22 Stop Date: 04/16/23 Status: Ordered Trulicity Pen 0.75 mg/0.5 mL subcutaneous solution 0.5 mL = 0.75 mg, Subcutaneous Injection, Every week, rotate injection sites, # 2 mL, 3 Refills, Maintenance, 07/12/22 14:01:00 EDT, Solution, [facility] #[id number], Partial fill upon patient request if the prescription is for a schedule II opio... Start Date: 07/12/22 Status: Ordered Vitamin D3 2000 intl units oral capsule 1 capsule = 2,000 International_Units, By Mouth, Daily, # 60 capsule, 2 Refills, Maintenance, 07/17/22 16:56:00 EDT, Capsule, [facility] #[id number], Partial fill upon patient request if the [...] Active DMII Confirmed Active 1Dr. Tunde Doylecu [phone], [place]. Dx 06/07/09 Social History Social History Type [...] S Resident Member Role: PCP Address: Address: [address] [place] [address] [place] [address]- Name: Radha Bravo RN Position: S RN Member Role: Primary Care Nurse Name: Juli Calles RN Position: S RN Member Role: Primary Care Nurse Care Team Related Persons Name: LINDA ZULEIMA Address: [place] [address] Name: LUCITA TEMPLE Address: home Name: LARA TEMPLE Name: JUSTIN HINES
--- OUTSIDE RECORDS SUMMARY | 2024-04-04 10:12 | XMS_ITS | Continuity of Care Document ---
Author Organization [facility] ter Address [address] [place] [address]- Care Team Providers Care Kinesiotherapist Name Role Phone Joey Steele MD Primary Care Physician [phone] [id number] Date(s): 10/24/19 - 11/25/[address] [address]- [facility] Attending Physician: Melquiades MILLER, Yung Stover Admitting Physician: Yung Arnett MD Referring Physician: Yung Arnett MD Allergies, Adverse Reactions, Alerts Substance Reaction [...] (DT) 6 06/15/09 Given 1Result Comment: [10/30/2014] [id number] 2Admin Note: VIS GIVEN DATED: 04/29/12 3Admin [...] 11/22/18 12:58:17 EST, Route to Pharmacy Electronically, [id number], [facility] Start Date: 11/22/18 Stop Date: 11/17/19 [...] CPAP(Confirmed) Active DMII(Confirmed) Active 1Dr. Tunde Wade [phone], [place]. Dx 06/07/09 Social History Social History Type Response Smoking Status Former smoker, quit more than 30 days ago entered on: 06/11/19 Sex
--- OUTSIDE RECORDS SUMMARY | 2024-04-04 10:12 | XMS_ITS | Continuity of Care Document ---
Author Organization [facility] Address [address] [place] [address]- Care Team Providers Care Platen Drier Operator Name Role Phone Joey Steele MD Primary Care Physician [phone] [place] [facility] [place] 06/21[place]21 - 09/08/21 [facility] [address] [place] [address]- Attending Physician: Maximus Rosen MD Admitting Physician: [...] Reason: Med Not Available 3Result Comment: [10/30/2014] [id number] 4Admin Note: VIS GIVEN DATED: 04/29/12 5Admin Note: vis given 05/23/11 6Admin Note: VIS GIVEN-DATED 06/07/10 7Admin Note: vis give dated 08/03/09 8Admin Note: VIS GIVEN VIS DATE 05/08/06 Medications albuterol 0.083% inhalation solution 3 mL = 2.5 mg, Inhalation, Every 6 hours, # 360 mL, 11 Refills, Maintenance, 08/29/20 20:48:00 EST,Solution, [facility], 152, cm, 08/13/20 13:28:00 EDT, Height, 175.5, kg, 08/09/20 0:18:00 EDT, Dry Weight Start Date: 08/29/20 Stop Date: 08/24/21 Status: Ordered albuterol CFC free 90 mcg/inh inhalation aerosol 2, puffs, Inhalation, 4 times a day, PRN, FOR WHEEZING AND SHORTNESS OF BREATH, # 1 each, Refills 5, Tot. Refills 5, Maintenance, 08/24/21 20:48:00 EDT, Route to Pharmacy Electronically, [id number], [facility] #[id number]... Start Date: 08/24/21 Stop Date: 02/20/22 Status: Ordered duloxetine 60 mg oral enteric coated capsule 1 capsule = 60 mg, By Mouth, Daily, # 30 capsule, 10 Refills, Maintenance, 10/14/20 15:08:00 EST, EC Capsule, [facility] #[id number], Partial fill upon patient request if the prescription is fora schedule II opioid drug., 152, cm, 08/13/20 13:28... Start Date: 10/14/20 Status: Ordered furosemide 40 mg oral tablet 40 mg, 1, tablet, By Mouth, 2 times a day, # 60 tablet, Refills 10, Tot. Refills 10, Maintenance, 10/14/20 15:09:00 EST, Route to Pharmacy Electronically, [facility] #[id number], 152, cm, 08/13/20 13:28:00 EDT, Height, 175.5, kg, 08/09/20 0:18:00... Start Date: 10/14/20 Stop Date: 09/09/21 Status: Ordered hydrOXYzine hydrochloride 25 mg oral tablet 1 tablet = 25 mg, By Mouth, 4 times a day, PRN for anxiety, # 40 tablet, 1 Refills, Maintenance, 08/28/21 15:25:00 EDT, Tablet, [facility] #[id number], Partial fill upon patient request if the prescription is for a schedule II opioid drug., 152,... Start Date: 08/28/21 Stop Date: 10/27/21 Status: Ordered meloxicam 15 mg oral tablet 1 tablet = 15 mg, By Mouth, Daily, For knee and back pain, # 30 tablet, 2 Refills, Maintenance, 06/17/21 9:06:00 EDT, Tablet, [facility] #[id number], Partial fill upon patient request if the prescription is for a schedule II opioid drug., 152, cm... Start Date: 06/17/21 Status: Ordered metFORMIN 1000 mg oral tablet 1 tablet = 1,000 mg, By Mouth, 2 times a day, # 60 tablet, 11 Refills, Maintenance, 06/17/21 9:12:00 EDT, Tablet, [facility] #[id number], cancel previous metformin scripts, 152, cm, 06/17/21 [...] 10 Refills, Maintenance, 10/14/20 15:09:00 EST, Tablet, [facility] #[id number], 152, cm, 08/13/20 13:28:00 EDT, Height, 175.5, [...] 2 Refills, Maintenance, 11/02/20 10:14:00 EST, Capsule, [facility] #[id number], Partial fill upon patient request if the [...] Active Osteoarthritis(Confirmed) Active DMII(Confirmed) Active 1DrRyder Wade [phone], [place]. Dx 06/07/09 Social History Social History Type Response Smoking Status Former smoker, quit more than 30 days ago entered on: 06/11/19 Sex
--- OUTSIDE RECORDS SUMMARY | 2024-04-04 10:12 | XMS_ITS | Continuity of Care Document ---
Author Organization [facility] Address [address] [place] [address]- Care Team Providers Care It Security Manager Name Role Phone Valadez DO Hazel Primary Care Physician [facility]counter [facility] Date(s): 10/24/22 - 11/23/22 [facility] [address] [place] [address]- Allergies, Adverse Reactions, Alerts Substance Reaction Severity [...] Reason: Med Not Available 3Result Comment: [10/30/2014] [id number] 4Admin Note: VIS GIVEN DATED: 04/29/12 5Admin Note: vis given 05/23/11 6Admin Note: VIS GIVEN-DATED 06/07/10 7Admin Note: vis give dated 08/03/09 8Admin Note: VIS GIVEN VIS DATE 05/08/06 Medications albuterol 0.083% inhalation solution 3 mL = 2.5 mg, Inhalation, Every 6 hours, # 360 mL, 11 Refills, Maintenance, 07/17/22 11:50:00 EDT,Solution, [facility] #[id number], 152, cm, 07/12/22 13:07:00 EDT, Height, 175.5, [...] 01/23/22 17:08:00 EDT, Route to Pharmacy Electronically, [facility] #[id number], 152, cm, 06/17/21 8:41:00 EDT, Height, 175.5, kg, 08/09/20 0:18:00... Start Date: 01/23/22 Stop Date: 01/07/25 Status: Ordered gabapentin 100 mg oral capsule 100 mg, 1, capsule, By Mouth, 3 times a day, # 90 capsule, Refills 0, Tot. Refills 0, Maintenance, 07/12/22 14:00:00 EDT, Route to Pharmacy Electronically, [facility] #[id number], Partial fill upon patient request if the prescription is for a kelly... Start Date: 07/12/22 Status: Ordered lisinopril 5 mg oral tablet 5 mg, 1, tablet, By Mouth, Daily, # 30 tablet, Refills 2, Tot. Refills 2, Maintenance, 07/17/22 17:03:00 EDT, Route to Pharmacy Electronically, [facility] #[id number], Please disregard 10mg dosing, 152, cm, 07/12/22 13:07:00 EDT, Height, 175.5, k... Start Date: 07/17/22 Status: Ordered metFORMIN 1000 mg oral tablet 1 tablet = 1,000 mg, By Mouth, 2 times a day, # 60 tablet, 11 Refills, Maintenance, 07/12/22 13:42:00 EDT, Tablet, [facility] #[id number], cancel previous metformin scripts, 152, cm, 07/12/22 [...] 09/01/22 15:06:00 EDT, Route to Pharmacy Electronically, [facility] #[id number], Partial... Start Date: 09/01/22 Status: Ordered rolling [...] 11 Refills, Maintenance, 04/21/22 12:34:00 EDT, Powder, [facility] #[id number], Partial fill upon patient request if the prescription is for a schedule II opioid drug., 1 puffs... Start Date: 04/21/22 Stop Date: 04/16/23 Status: Ordered Trulicity Pen 0.75 mg/0.5 mL subcutaneous solution 0.5 mL = 0.75 mg, Subcutaneous Injection, Every week, rotate injection sites, # 2 mL, 3 Refills, Maintenance, 07/12/22 14:01:00 EDT, Solution, [facility] #[id number], Partial fill upon patient request if the prescription is for a schedule II opio... Start Date: 07/12/22 Status: Ordered Vitamin D3 2000 intl units oral capsule 1 capsule = 2,000 International_Units, By Mouth, Daily, # 60 capsule, 2 Refills, Maintenance, 07/17/22 16:56:00 EDT, Capsule, [facility] #[id number], Partial fill upon patient request if the [...] Active DMII Confirmed Active 1Dr. Tunde Wade [phone], [place]. Dx 06/07/09 Social History Social History Type Response Smoking Status Former smoker, quit more than 30 days ago entered on: 06/11/19 Sex Patient Care team information Care Team Personnel Name: Maty Valencia RN Position: [facility] RN Member Role: Primary Care Nurse Name: Danya Roman RN Position: [facility] AMB Nurse Member Role: Primary Care Nurse Name: Ashley Brownlee RN Position: [facility] ED RN W/OE and Tasks Member Role: Primary Care Nurse Name: Becca Enrique RN Position: [facility] RN Member Role: Primary Care Nurse Name: Elma Caruso (INSTR) Position: [facility] RN Member Role: Primary Care Nurse Name: Amanda Huerta RN Position: [facility] RN Member Role: Primary Care Nurse Name: Hazel Valadez DO Position: [facility] Resident Member Role: PCP Address: Address: [address] [place] [address] [place] [address]- Name: Juli Calles RN Position: [facility] RN Member Role: Primary Care Nurse Care Team Related Persons Name: LINDAZULEIMA Address: [place] [address] Name: LUCITA TEMPLE Address: home Name: LARA TEMPLE Address: home [address] [place] [id number] Name: JUSTIN HINES
--- OUTSIDE RECORDS SUMMARY | 2024-04-04 10:12 | XMS_ITS | Continuity of Care Document ---
Author Organization [facility] Address [address] [place] [address]- Care Team Providers Care Lining Inserter Name Role Phone Hazel Valadez DO Primary Care Physician [facility] Date(s): 05/22/23 - 06/21/23 [facility] [address] [place] [address] Allergies, Adverse Reactions, Alerts Substance Reaction [...] Reason: Med Not Available 2Result Comment: [10/30/2014] [id number] 3Admin Note: VIS GIVEN DATED: 04/29/12 4Admin Note: vis given 05/23/11 5Admin Note: VIS GIVEN-DATED 06/07/10 6Admin Note: vis give dated 08/03/09 7Admin Note: VIS GIVEN VIS DATE 05/08/06 Medications albuterol 0.083% inhalation solution 3 mL = 2.5 mg, Inhalation, Every 6 hours, # 360 mL, 11 Refills, Maintenance, 07/17/22 11:50:00 EDT,Solution, [email or web address] #[id number], 152, cm, 07/12/22 13:07:00 EDT, Height, 175.5, [...] 03/31/23 21:58:00 EDT, Route to Pharmacy Electronically, [email or web address] #[id number], Partial fill upon patient request if the [...] cm, 07/12/22 13:07:00 EDT, Height, 175.5, kg, 10/12/20 0:18:00 EDT, Dry Weight Start Date: 07/19/22 [...] 01/07/25 17:08:00 EDT, Route to Pharmacy Electronically, [email or web address] #[id number], 149.86, cm, 02/09/23 15:52:00 EDT, Height, 172.3, kg, 11/26/22 5:4... Start Date: 01/07/25 Stop Date: 12/23/27 Status: Ordered furosemide 40 mg oral tablet 40 mg, 1, tablet, By Mouth, 2 times a day, for 90 days, # 180 tablet, Refills 11, Tot. Refills 11, Hard Stop 01/07/25 17:08:00 EDT, 01/23/22 17:08:00 EDT, Route to Pharmacy Electronically, [email or web address] #[id number], 152, cm, 06/17/21 8:41:00 EDT, He... Start Date: 01/23/22 Stop Date: 01/07/25 Status: Ordered gabapentin 100 mg oral capsule 100 mg, 1, capsule, By Mouth, 3 times a day, # 90 capsule, Refills 0, Tot. Refills 0, Maintenance, 12/14/22 17:21:00 EST, Route to Pharmacy Electronically, [email or web address] #[id number], Partial fill upon patient request if the prescription is for a kelly... Start Date: 12/14/22 Status: Ordered ibuprofen 800 mg oral tablet 800 mg, 1, tablet, By Mouth, 3 times a day, for pain with food or milk, # 30 tablet, Refills 0, Tot. Refills 0, Maintenance, 02/09/23 17:06:00 EDT, Route to Pharmacy Electronically, [email or web address] #[id number], Partial fill upon patient request if th... Start Date: 02/09/23 Status: Ordered metFORMIN 1000 mg oral tablet 1 tablet = 1,000 mg, By Mouth, 2 times a day, # 60 tablet, 11 Refills, Maintenance, 07/12/22 13:42:00 EDT, Tablet, [email or web address] #[id number], cancel previous metformin scripts, 152, cm, 07/12/22 13:07:00 EDT, Height, 175.5, kg, 08/09/20 0:18:00 EDT,... Start Date: 07/12/22 Status: Ordered multivitamin Multiple Vitamins oral capsule 1 capsule, By Mouth, Daily, # 30 capsule, 0 Refills, Maintenance, 03/23/23 7:59:00 EDT, Capsule, [email or web address] #[id number], Partial fill upon patient request if the [...] 11 Refills, Maintenance, 04/21/22 12:34:00 EDT, Powder, [email or web address] #[id number], Partial fill upon patient request if the prescription is for a schedule II opioid drug., 1 puffs... Start Date: 04/21/22 Stop Date: 04/16/23 Status: Ordered Trulicity Pen 0.75 mg/0.5 mL subcutaneous solution 0.5 mL = 0.75 mg, Subcutaneous Injection, Every week, rotate injection sites, # 2 mL, 3 Refills, Maintenance, 07/12/22 14:01:00 EDT, Solution, [facility] #[id number], Partial fill upon patient request if the prescription is for a schedule II opio... Start Date: 07/12/22 Status: Ordered Vitamin D3 2000 intl units oral capsule 1 capsule = 2,000 International_Units, By Mouth, Daily, # 60 capsule, 2 Refills, Maintenance, 07/17/22 16:56:00 EDT, Capsule, [facility] #[id number], Partial fill upon patient request if the [...] Confirmed Active DMII Confirmed Active 1DrRyder Wade [phone], [place]. Dx 06/07/09 Social History Social History Type Response Smoking Status Former smoker, quit more than 30 days ago entered on: 06/11/19 Sex Patient Care team information Care Team Personnel Name: Jayna Sandhu RN Position: S RN Member Role: Primary Care Nurse Name: Maty Valencia RN Position: [facility] RN Member Role: Primary Care Nurse Name: Roger Peña RN Position: [facility] RN Supv Member Role: Primary Care Nurse Name: Mihir Jackson RN Position: [facility] RN Member Role: Primary Care Nurse Name: Danya Roman RN Position: [facility] SN RN Member Role: Primary Care Nurse Name: Kem RNAshley Position: [facility] ED RN W/OE and Tasks Member Role: Primary Care Nurse Name: Becca Enrique RN Position: [facility] RN Member Role: Primary Care Nurse Name: Zuly THOMSON) Elma Position: [facility] RN Member Role: Primary Care Nurse Name: Amanda Huerta RN Position: [facility] RN Member Role: Primary Care Nurse Name: Yessica Stock Position: [facility] RN Member Role: Primary Care Nurse Name: Hazel Valadez DO Position: [facility] Resident Member Role: PCP Address: Address: [address] [place] [address] Adult [place], [place] [address] Name: Radha Bravo RN Position: [facility] RN Member Role: Primary Care Nurse Name: Juli Calles RN Position: [facility] RN Member Role: Primary Care Nurse Care Team Related Persons Name: LINDA ZULEIMA Address: [place] [address] Name: LUCITA TEMPLE Address: home Name: LARA TEMPLE Name: JUSTIN HINES
--- OUTSIDE RECORDS SUMMARY | 2024-04-04 10:12 | XMS_ITS | Continuity of Care Document ---
Author Organization [facility] Address [address] [place] [address]- Care Team Providers Care Reel Stripper Name Role Phone Hazel Valadez DO Primary Care Physician [facility]): [facility] - 03/11/23 [facility] [address] [place] [id number] Attending Physician: AdmVannesa koehler Admitting Physician: AdmtrVannesa Referring Physician: Admtr, ArHeather Allergies, Adverse Reactions, Alerts Substance Reaction Severity [...] Given SARS-CoV-2 (COVID-19) mRNA BNT-162b2 vac 6 4/19/21 Recorded pneumococcal 23-valent vaccine 7 06/30/11 Given tetanus/diphtheria/pertussis, acel(Tdap) 10/06/10 Recorded diphtheria-tetanus toxoids (DT) 8 06/15/09 Given tetanus-diphtheria toxoids (Td) 12/23/08 Recorded 1Early/Late Reason: Med Not Available 2Result Comment: [10/30/2014] [id number] 3Admin Note: VIS GIVEN DATED: 04/29/12 4Admin Note: vis given 05/23/11 5Admin Note: VIS GIVEN-DATED 06/07/10 6Result Comment: in error 7Admin Note: vis give dated 08/03/09 8Admin Note: VIS GIVEN VIS DATE 05/08/06 Medications albuterol 0.083% inhalation solution 3 mL = 2.5 mg, Inhalation, Every 6 hours, # 360 mL, 11 Refills, Maintenance, 07/17/22 11:50:00 EDT,Solution, [facility] #[id number], 152, cm, 07/12/22 13:07:00 EDT, Height, 175.5, [...] 2 Diabetes Mellitus, 07/12/22 16:40:00 EDT, [facility], [facility], 152, cm, 07/12/22 13:07:00 EDT, [...] 01/23/22 17:08:00 EDT, Route to Pharmacy Electronically, [facility] #[id number], 152, cm, 06/17/21 8:41:00 EDT, Height, 175.5, kg, 08/09/20 0:18:00... Start Date: 01/23/22 Stop Date: 01/07/25 Status: Ordered gabapentin 100 mg oral capsule 100 mg, 1, capsule, By Mouth, 3 times a day, # 90 capsule, Refills 0, Tot. Refills 0, Maintenance, 12/14/22 17:21:00 EST, Route to Pharmacy Electronically, [facility] #[id number], Partial fill upon patient request if the prescription is for a kelly... Start Date: 12/14/22 Status: Ordered ibuprofen 800 mg oral tablet 800 mg, 1, tablet, By Mouth, 3 times a day, for pain with food or milk, # 30 tablet, Refills 0, Tot. Refills 0, Maintenance, 02/09/23 17:06:00 EDT, Route to Pharmacy Electronically, [facility] #[id number], Partial fill upon patient request if th... Start Date: 02/09/23 Status: Ordered metFORMIN 1000 mg oral tablet 1 tablet = 1,000 mg, By Mouth, 2 times a day, # 60 tablet, 11 Refills, Maintenance, 07/12/22 13:42:00 EDT, Tablet, [facility] #[id number], cancel previous metformin scripts, 152, cm, 07/12/22 [...] 11 Refills, Maintenance, 04/21/22 12:34:00 EDT, Powder, [facility] #[id number], Partial fill upon patient request if the prescription is for a schedule II opioid drug., 1 puffs... Start Date: 04/21/22 Stop Date: 04/16/23 Status: Ordered Trulicity Pen 0.75 mg/0.5 mL subcutaneous solution 0.5 mL = 0.75 mg, Subcutaneous Injection, Every week, rotate injection sites, # 2 mL, 3 Refills, Maintenance, 07/12/22 14:01:00 EDT, Solution, [facility] #[id number], Partial fill upon patient request if the prescription is for a schedule II opio... Start Date: 07/12/22 Status: Ordered Vitamin D3 2000 intl units oral capsule 1 capsule = 2,000 International_Units, By Mouth, Daily, # 60 capsule, 2 Refills, Maintenance, 07/17/22 16:56:00 EDT, [facility][id number], Partial fill upon patient request if the [...] Active DMII Confirmed Active 1Dr. Tunde Petcu [phone], [place]. Dx 06/07/09 Social History Social History Type Response Smoking Status Former smoker, quit more than 30 days ago entered on: 06/11/19 Sex Note * Event Display: Cardiology Office Note, Non-BH Authored Date: [id number] * Philipp Hutton: PERFORM, SIGN, VERIFY Event Display: Patient Education/Instruction Authored Date: [id number] [facility] Clinical Summary Person Information Name ZULEIMA TEM[place] Age 35 Years 1975 12:00 AM PCP Ambrocio MILLER , María Welsh PCP Reason for Visit: Allergy Info: Percocet 7.5/325 Vital Signs Height Weight BMI Blood Pressure / Temperature Pulse Rate Respiratory Rate 02 Sat Mode of Delivery / Medication Information Acetaminophen (acetaminophen 500 mg oral tablet) 2 tablet, Oral, every 6 hours, take 2 pills every 6 hours for pain, up to 8 pills in 24 hours. No more than 8 pills in 24 hours, 56 tablet, Refills: 0 Albuterol (albuterol 0.083% inhalation solution) 3 mL, Inhalation, every 6 hours, 120 each, Refills: 0 Albuterol (albuterol 108 mcg/inh inhalation aerosol with adapter) 2 puffs, Inhalation, 4 times a day, FOR WHEEZING AND SHORTNESS OF BREATH, 1 each, As Needed, Wheezing/Shortness of Breath, Refills: 11 Durable Medical Equipment (Nebulizer/Compressor) , See Instructions, for use with albuterol inhalation solution, 1 each Fluticasone (fluticasone CFC free 110 mcg/inh inhalation aerosol with adapter) 2 puffs, Inhalation,twice a day, USE TWICE A DAY, EVERY DAY, FOR PREVENTION OF ASTHMA SYMPTOMS, 30 days, Refills: 3 Ibuprofen (ibuprofen 200 mg oral tablet) 2 tablet, Oral, every 4 hours, with food, 120 tablet, As Needed, Pain, Refills: 0 Omeprazole (omeprazole 20 mg oral enteric coated capsule) 1 capsule, Oral, Tomorrow, TAKE 1 PILL A DAY, 30 MIN BEFORE FIRST MEAL OF THE DAY, 30 capsule, Refills: 11 Problem List Date Problem 06/03/09 Asthma 05/13/08 Obese build 10/08/08 Arthritis of knee 10/08/08 Tendinitis 11/26/09 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 Diagnostic Results Lab Result Value Date Lead Hemoglobin A1C 6.1 04/19/11 LDL 121 04/19/11 HDL 36 04/19/11 Triglycerides 112 04/19/11 Total Cholesterol 179 04/19/11 Disclaimer: The information provided is of a general nature and is intended to be used in conjunction with the recommendations and advice of your health care practitioner. Every effort has been made to ensure that the information provided is accurate and complete at the time it is provided to you however, as your needs change, or, as new information becomes available, different or additional instructions may be required. If you have questions, please consult with your primary care provider or pharmacist, as appropriate. This information is not intended to serve as substitution for assessment and evaluation by a qualified health care provider. If you do not have a primary care provider, you may find a [facility] provider by calling [facility] [employer] Link at [phone]. Patient Education Information Follow-up Details: With: Address: When: María Albrecht MD [address] [place] [phone] phone, fixed, Compete (1) Within 1 month Comments: WEIGHT MANAGMENT Patient Education Material: Patient Care team information Care Team Personnel [...] Care Nurse Name: Tessy Jaramillo RN Position: [facility] RN Member Role: Primary Care Nurse Name: Danya Roman RN Position: [facility] SN RN Member Role: Primary Care Nurse Name: Kem RNAshley Position: [facility] ED RN W/OE and Tasks Member Role: Primary Care Nurse Name: Becca Enrique RN Position: [facility] RN Member Role: Primary Care Nurse Name: Zuly THOMSON) Elma Position: [facility] RN Member Role: Primary Care Nurse Name: Amanda Huerta RN Position: [facility] RN Member Role: Primary Care Nurse Name: Yessica Stock Position: [facility] RN Member Role: Primary Care Nurse Name: Hazel Valadez DO Position: [facility] Resident Member Role: PCP Address: Address: [address] [place] [address] [place], [place] [address] Name: Radha rBavo RN Position: [facility] RN Member Role: Primary Care Nurse Name: Juli Calles RN Position: [facility] RN Member Role: Primary Care Nurse Care Team Related Persons Name: ZULEIMA MCKEON Address: [place] [address] Name: LUCITA TEMPLE Address: home Name: LARA TEMPLE Name: JUSTIN HINES
--- OUTSIDE RECORDS SUMMARY | 2024-04-04 10:12 | XMS_ITS | Continuity of Care Document ---
Author Organization [facility] Address [address] [place] [address]- Care Team Providers Care Paper Sorter And Counter Name Role Phone Hazel Valadez DO Primary Care Physician [facility]): [facility]22 - 01/19/23 [facility] [address] [place] [address] Attending Physician: Not on Staff, Attending [...] Reason: Med Not Available 2Result Comment: [10/30/2014] [id number] 3Admin Note: VIS GIVEN DATED: 04/29/12 4Admin Note: vis given 05/23/11 5Admin Note: VIS GIVEN-DATED 06/07/10 6Result Comment: in error 7Admin Note: vis give dated 08/03/09 8Admin Note: VIS GIVEN VIS DATE 05/08/06 Medications albuterol 0.083% inhalation solution 3 mL = 2.5 mg, Inhalation, Every 6 hours, # 360 mL, 11 Refills, Maintenance, 07/17/22 11:50:00 EDT,Solution, [email or web address] #[id number], 152, cm, 07/12/22 13:07:00 EDT, Height, 175.5, [...] 01/23/22 17:08:00 EDT, Route to Pharmacy Electronically, [facility] #[id number], 152, cm, 06/17/21 8:41:00 EDT, Height, 175.5, kg, 08/09/20 0:18:00... Start Date: 01/23/22 Stop Date: 01/07/25 Status: Ordered gabapentin 100 mg oral capsule 100 mg, 1, capsule, By Mouth, 3 times a day, # 90 capsule, Refills 0, Tot. Refills 0, Maintenance, 12/14/22 17:21:00 EST, Route to Pharmacy Electronically, [facility] #[id number], Partial fill upon patient request if the prescription is for a kelly... Start Date: 12/14/22 Status: Ordered metFORMIN 1000 mg oral tablet 1 tablet = 1,000 mg, By Mouth, 2 times a day, # 60 tablet, 11 Refills, Maintenance, 07/12/22 13:42:00 EDT, Tablet, [facility] #[id number], cancel previous metformin scripts, 152, cm, 07/12/22 [...] 11 Refills, Maintenance, 04/21/22 12:34:00 EDT, Powder, [email or web address] #[id number], Partial fill upon patient request if the prescription is for a schedule II opioid drug., 1 puffs... Start Date: 04/21/22 Stop Date: 04/16/23 Status: Ordered Trulicity Pen 0.75 mg/0.5 mL subcutaneous solution 0.5 mL = 0.75 mg, Subcutaneous Injection, Every week, rotate injection sites, # 2 mL, 3 Refills, Maintenance, 07/12/22 14:01:00 EDT, Solution, [facility] #[id number], Partial fill upon patient request if the prescription is for a schedule II opio... Start Date: 07/12/22 Status: Ordered Vitamin D3 2000 intl units oral capsule 1 capsule = 2,000 International_Units, By Mouth, Daily, # 60 capsule, 2 Refills, Maintenance, 07/17/22 16:56:00 EDT, [facility][id number], Partial fill upon patient request if the [...] Active DMII Confirmed Active 1Dr. Tunde Wade [phone], [place]. Dx 06/07/09 Social History Social History Type Response Smoking Status Former smoker, quit more than 30 days ago entered on: 06/11/19 Sex Patient Care team information Care Team Personnel Name: Jayna Sandhu RN Position: S RN Member Role: Primary Care Nurse Name: Maty Valencia RN Position: S RN Member Role: Primary Care Nurse Name: Roger Peña RN Position: [facility] RN Supv Member Role: Primary Care Nurse Name: Mihir Jackson RN Position: S RN Member Role: Primary Care Nurse Name: Tessy Jaramillo RN Position: S RN Member Role: Primary Care Nurse Name: Danya Roman RN Position: [facility] SN RN Member Role: Primary Care Nurse Name: Ashley Brownlee RN Position: [facility] ED RN W/OE and Tasks Member Role: Primary Care Nurse Name: Becca Enrique RN Position: S RN Member Role: Primary Care Nurse Name: Elma Caruso (INSTR) Position: S RN Member Role: Primary Care Nurse Name: Amanda Huerta RN Position: S RN Member Role: Primary Care Nurse Name: Yessica Stock Position: S RN Member Role: Primary Care Nurse Name: Hazel Valadez DO Position: S Resident Member Role: PCP Address: Address: [address] [place] [address] [place] [address]- Name: Radha Bravo RN Position: S RN Member Role: Primary Care Nurse Name: Juli Calles RN Position: S RN Member Role: Primary Care Nurse Care Team Related Persons Name: ZULEIMA MCKEON Address: [place] [address] Name: LUCITA TEMPLE Address: home Name: LARA TEMPLE Name: JUSTIN HINES
--- OUTSIDE RECORDS SUMMARY | 2024-04-04 10:12 | XMS_ITS | Continuity of Care Document ---
Author Organization [facility] Address [address] [place] [address]- Care Team Providers Care 21 Dealer Name Role Phone Joey Steele MD Primary Care Physician [facility] 12[facility]13/20 - 01/12/21 [facility] [address] [place] [id number] Allergies, Adverse Reactions, Alerts [...] influenza virus vaccine, inactivated 4 09/14/11 Gi erwni influenza virus vaccine, inactivated 5 02/06/11 Gi erwin pneumococcal 23-valent vaccine 6 06/30/11 Given diphtheria-tetanus toxoids (DT) 7 06/15/09 Given 1Early/Late Reason: Med Not Available 2Result Comment: [10/30/2014] [id number] 3Admin Note: VIS GIVEN DATED: 04/29/12 4Admin Note: vis given 05/23/11 5Admin Note: VIS GIVEN-DATED 06/07/10 6Admin Note: vis give dated 08/03/09 7Admin Note: VIS GIVEN VIS DATE 05/08/06 Medications albuterol 0.083% inhalation solution 3 mL = 2.5 mg, Inhalation, Every 6 hours, # 360 mL, 11 Refills, Maintenance, 08/29/20 20:48:00 EST,Solution, [facility], 152, cm, 08/13/20 13:28:00 EDT, Height, 175.5, kg, 08/09/20 0:18:00 EDT, Dry Weight Start Date: 08/29/20 Stop Date: 08/24/21 Status: Ordered albuterol CFC free 90 mcg/inh inhalation aerosol 2, puffs, Inhalation, 4 times a day, PRN, FOR WHEEZING AND SHORTNESS OF BREATH, # 1 each, Refills 11, Tot. Refills 11, Maintenance, 08/29/20 20:48:00 EST, Route to Pharmacy Electronically, [id number], [facility]... Start Date: 08/29/20 Stop Date: [...] Refills, Maintenance, 10/14/20 15:08:00 EST, EC Capsule, [facility] #[id number], Partial fill upon patient request if the prescription is fora schedule II opioid drug., 152, cm, 08/13/20 13:28... Start Date: 10/14/20 Status: Ordered furosemide 40 mg oral tablet 40 mg, 1, tablet, By Mouth, 2 times a day, # 60 tablet, Refills 10, Tot. Refills 10, Maintenance, 10/14/20 15:09:00 EST, Route to Pharmacy Electronically, [facility] #[id number], 152, cm, 08/13/20 13:28:00 EDT, Height, 175.5, kg, 08/09/20 0:18:00... Start Date: 10/14/20 Stop Date: 09/09/21 Status: Ordered metFORMIN 1000 mg oral tablet 1 tablet = 1,000 mg, By Mouth, 2 times a day, takes once daily for 2 weeks, then increase to BID, #60 tablet, 11 Refills, Maintenance, 10/14/20 15:09:00 EST, Tablet, [facility] #[id number], 152, cm, 08/13/20 13:28:00 EDT, Height, 175.5, [...] 10 Refills, Maintenance, 10/14/20 15:09:00 EST, Tablet, [facility] #[id number], 152, cm, 08/13/20 13:28:00 EDT, Height, 175.5, kg, 08/09/20 0:18:00 EDT, Dry Weight Start Date: 10/14/20 Status: Ordered Vitamin D3 2000 intl units oral capsule 1 capsule = 2,000 International_Units, By Mouth, Daily, # 60 capsule, 2 Refills, Maintenance, 11/02/20 10:14:00 EST, Capsule, [facility] #[id number], Partial fill upon patient request if the [...] home CPAP(Confirmed) Active DMII(Confirmed) Active 1DrRyder Wade [phone], Norma. Dx 06/07/09 Social History Social History Type Response Smoking Status Former smoker, quit more than 30 days ago entered on: 06/11/19 Sex
--- OUTSIDE RECORDS SUMMARY | 2024-04-04 10:12 | XMS_ITS | Continuity of Care Document ---
Author Organization [facility] Address [address] [place] [address]- Care Team Providers Care Cupola Mechanic Name Role Phone Joey Steele MD Primary Care Physician [facility]21 - 04/13/21 [facility] [address] [place], [place] [address] Allergies, Adverse Reactions, Alerts [...] Reason: Med Not Available 2Result Comment: [10/30/2014] [id number] 3Admin Note: VIS GIVEN DATED: 04/29/12 4Admin Note: vis given 05/23/11 5Admin Note: VIS GIVEN-DATED 06/07/10 6Admin Note: vis give dated 08/03/09 7Admin Note: VIS GIVEN VIS DATE 05/08/06 Medications albuterol 0.083% inhalation solution 3 mL = 2.5 mg, Inhalation, Every 6 hours, # 360 mL, 11 Refills, Maintenance, 08/29/20 20:48:00 EST,Solution, [facility], 152, cm, 08/13/20 13:28:00 [...] 08/29/20 20:48:00 EST, Route to Pharmacy Electronically, [id number]... Start Date: 08/29/20 Stop Date: 08/24/21 Status: Ordered albuterol CFC free 90 mcg/inh inhalation aerosol 2, puffs, Inhalation, 4 times a day, PRN, FOR WHEEZING AND SHORTNESS OF BREATH, # 1 each, Refills 5, Tot. Refills 5, Maintenance, 08/24/21 20:48:00 EDT, Route to Pharmacy Electronically, [id number], [facility] #[id number]... Start Date: 08/24/21 Stop Date: 02/20/22 [...] Refills, Maintenance, 10/14/20 15:08:00 EST, EC Capsule, [facility] #[id number], Partial fill upon patient request if the prescription is fora schedule II opioid drug., 152, cm, 08/13/20 13:28... Start Date: 10/14/20 Status: Ordered furosemide 40 mg oral tablet 40 mg, 1, tablet, By Mouth, 2 times a day, # 60 tablet, Refills 10, Tot. Refills 10, Maintenance, 10/14/20 15:09:00 EST, Route to Pharmacy Electronically, [facility] #[id number], 152, cm, 08/13/20 13:28:00 EDT, Height, 175.5, kg, 08/09/20 0:18:00... Start Date: 10/14/20 Stop Date: 09/09/21 Status: Ordered indomethacin 50 mg oral capsule 1 capsule = 50 mg, By Mouth, 3 times a day, PRN for gout pain, # 15 capsule, 0 Refills, Maintenance, 03/16/21 16:28:00 EDT, Capsule, [facility] #[id number], Partial fill upon patient request if the prescription is for a schedule II opioid drug.,... Start Date: 03/16/21 Stop Date: 03/21/21 Status: Ordered metFORMIN 1000 mg oral tablet 1 tablet = 1,000 mg, By Mouth, 2 times a day, takes once daily for 2 weeks, then increase to BID, #60 tablet, 11 Refills, Maintenance, 10/14/20 15:09:00 EST, Tablet, [facility] #[id number], 152, cm, 08/13/20 13:28:00 EDT, Height, 175.5, kg, 07/29... Start Date: 10/14/20 Status: Ordered morphine 15 mg oral tablet, immediate release 1 tablet = 15 mg, By Mouth, Every 4 hours, PRN as needed for pain, # 10 tablet, 0 Refills, Maintenance, 03/12/21 1:49:00 EDT, Tablet, [facility] #[id number], Partial fill upon patient request, 152, cm, [...] 10 Refills, Maintenance, 10/14/20 15:09:00 EST, Tablet, [facility] #[id number], 152, cm, 08/13/20 13:28:00 EDT, Height, 175.5, kg, 08/09/20 0:18:00 EDT, Dry Weight Start Date: 10/14/20 Status: Ordered Vitamin D3 2000 intl units oral capsule 1 capsule = 2,000 International_Units, By Mouth, Daily, # 60 capsule, 2 Refills, Maintenance, 11/02/20 10:14:00 EST, Capsule, [facility] #[id number], Partial fill upon patient request if the [...] home CPAP(Confirmed) Active DMII(Confirmed) Active 1DrRyder Wade [phone], Norma. Dx 06/07/09 Social History Social History Type Response Smoking Status Former smoker, quit more than 30 days ago entered on: 06/11/19 Sex
--- OUTSIDE RECORDS SUMMARY | 2024-04-04 10:12 | XMS_ITS | Continuity of Care Document ---
Author Organization [facility] Address [address] [place] [address]- Care Team Providers Care Button Tufter Name Role Phone Hazel Valadez DO Primary Care Physician Encounter [facility] R [id number] Date(s): 07/24/23 - 08/25/23 [facility] [address] [place] [id number] Attending Physician: Daja Francois MD Admitting Physician: Daja Francois MD Allergies, Adverse Reactions, Alerts Substance Reaction [...] Reason: Med Not Available 2Result Comment: [10/30/2014] [id number] 3Admin Note: VIS GIVEN DATED: 04/29/12 4Admin Note: vis given 05/23/11 5Admin Note: VIS GIVEN-DATED 06/07/10 6Admin Note: vis give dated 08/03/09 7Admin Note: VIS GIVEN VIS DATE 05/08/06 Medications albuterol 0.083% inhalation solution 3 mL = 2.5 mg, Inhalation, Every 6 hours, # 360 mL, 11 Refills, Maintenance, 07/17/22 11:50:00 EDT,Solution, [facility] #[id number], 152, cm, 07/12/22 13:07:00 EDT, Height, 175.5, [...] 03/31/23 21:58:00 EDT, Route to Pharmacy Electronically, [facility] #[id number], Partial fill upon patient request if the [...] 01/07/25 17:08:00 EDT, Route to Pharmacy Electronically, [facility] #[id number], 149.86, cm, 02/09/23 15:52:00 EDT, Height, 172.3, kg, 11/26/22 5:4... Start Date: 01/07/25 Stop Date: 12/23/27 Status: Ordered furosemide 40 mg oral tablet 40 mg, 1, tablet, By Mouth, 2 times a day, for 90 days, # 180 tablet, Refills 11, Tot. Refills 11, Hard Stop 01/07/25 17:08:00 EDT, 01/23/22 17:08:00 EDT, Route to Pharmacy Electronically, [facility] #[id number], 152, cm, 06/17/21 8:41:00 EDT, He... Start Date: 01/23/22 Stop Date: 01/07/25 Status: Ordered gabapentin 100 mg oral capsule 100 mg, 1, capsule, By Mouth, 3 times a day, # 90 capsule, Refills 0, Tot. Refills 0, Maintenance, 12/14/22 17:21:00 EST, Route to Pharmacy Electronically, [facility] #[id number], Partial fill upon patient request if the prescription is for a kelly... Start Date: 12/14/22 Status: Ordered ibuprofen 800 mg oral tablet 800 mg, 1, tablet, By Mouth, 3 times a day, for pain with food or milk, # 30 tablet, Refills 0, Tot. Refills 0, Maintenance, 02/09/23 17:06:00 EDT, Route to Pharmacy Electronically, [facility] #[id number], Partial fill upon patient request if th... Start Date: 02/09/23 Status: Ordered metFORMIN 1000 mg oral tablet 1 tablet = 1,000 mg, By Mouth, 2 times a day, # 60 tablet, 11 Refills, Maintenance, 07/12/22 13:42:00 EDT, Tablet, [facility] #[id number], cancel previous metformin scripts, 152, cm, 07/12/22 13:07:00 EDT, Height, 175.5, kg, 08/09/20 0:18:00 EDT,... Start Date: 07/12/22 Status: Ordered multivitamin Multiple Vitamins oral capsule 1 capsule, By Mouth, Daily, # 30 capsule, 0 Refills, Maintenance, 03/23/23 7:59:00 EDT, Capsule, [facility] #[id number], Partial fill upon patient request if the [...] 11 Refills, Maintenance, 04/21/22 12:34:00 EDT, Powder, [facility] #[id number], Partial fill upon patient request if the prescription is for a schedule II opioid drug., 1 puffs... Start Date: 04/21/22 Stop Date: 04/16/23 Status: Ordered Vitamin D3 2000 intl units oral capsule 1 capsule = 2,000 International_Units, By Mouth, Daily, # 60 capsule, 2 Refills, Maintenance, 07/17/22 16:56:00 EDT, Capsule, [facility] #[id number], Partial fill upon patient request if the [...] Confirmed Active DMII Confirmed Active 1DrRyder Wade [phone], Norma. Dx 06/07/09 Social History Social History [...] Care Nurse Name: Danya Roman RN Position: [facility] SN RN Member Role: Primary Care Nurse Name: Ashley Brownlee RN Position: [facility] ED RN W/OE and Tasks Member Role: Primary Care Nurse Name: Zuly THOMSON) Elma Position: [facility] RN Member Role: Primary Care Nurse Name: Amanda Huerta RN Position: [facility] RN Member Role: Primary Care Nurse Name: Yessica Stock Position: [facility] RN Member Role: Primary Care Nurse Name: Hazel Valadez DO Position: [facility] Resident Member Role: PCP Address: Address: [address] [place] [address] [place], [place] [address] Name: Juli Calles RN Position: [facility] RN Member Role: Primary Care Nurse Care Team Related Persons Name: ZULEIMA MCKEON Address: [place] [address] Name: LUCITA TEMPLE Address: home Name: LARA TEMPLE Name: JUSTIN HINES
--- OUTSIDE RECORDS SUMMARY | 2024-04-04 10:12 | XMS_ITS | Continuity of Care Document ---
Author Organization [facility] Address [address] [place] [id number]- Care Team Providers Care Poultry Raiser Name Role Phone Allyson ARMSTRONG Hazel Primary Care Physician [facility]counter [facility] Date[facility]s): 06/13/23 - 08/11/23 [facility] [address] [place] [id number]- Attending Physician: Maximus Rosen MD Admitting Physician: [...] Reason: Med Not Available 2Result Comment: [10/30/2014] [id number] 3Admin Note: VIS GIVEN DATED: 04/29/12 4Admin Note: vis given 05/23/11 5Admin Note: VIS GIVEN-DATED 06/07/10 6Admin Note: vis give dated 08/03/09 7Admin Note: VIS GIVEN VIS DATE 05/08/06 Medications albuterol 0.083% inhalation solution 3 mL = 2.5 mg, Inhalation, Every 6 hours, # 360 mL, 11 Refills, Maintenance, 07/17/22 11:50:00 EDT,Solution, [facility] #[id number], 152, cm, 07/12/22 13:07:00 EDT, Height, 175.5, [...] 03/31/23 21:58:00 EDT, Route to Pharmacy Electronically, [facility] #[id number], Partial fill upon patient request if the [...] 01/07/25 17:08:00 EDT, Route to Pharmacy Electronically, [facility] #[id number], 149.86, cm, 02/09/23 15:52:00 EDT, Height, 172.3, kg, 11/26/22 5:4... Start Date: 01/07/25 Stop Date: 12/23/27 Status: Ordered furosemide 40 mg oral tablet 40 mg, 1, tablet, By Mouth, 2 times a day, for 90 days, # 180 tablet, Refills 11, Tot. Refills 11, Hard Stop 01/07/25 17:08:00 EDT, 01/23/22 17:08:00 EDT, Route to Pharmacy Electronically, [facility] #[id number], 152, cm, 06/17/21 8:41:00 EDT, He... Start Date: 01/23/22 Stop Date: 01/07/25 Status: Ordered gabapentin 100 mg oral capsule 100 mg, 1, capsule, By Mouth, 3 times a day, # 90 capsule, Refills 0, Tot. Refills 0, Maintenance, 12/14/22 17:21:00 EST, Route to Pharmacy Electronically, [facility] #[id number], Partial fill upon patient request if the prescription is for a kelly... Start Date: 12/14/22 Status: Ordered ibuprofen 800 mg oral tablet 800 mg, 1, tablet, By Mouth, 3 times a day, for pain with food or milk, # 30 tablet, Refills 0, Tot. Refills 0, Maintenance, 02/09/23 17:06:00 EDT, Route to Pharmacy Electronically, [facility] #[id number], Partial fill upon patient request if th... Start Date: 02/09/23 Status: Ordered metFORMIN 1000 mg oral tablet 1 tablet = 1,000 mg, By Mouth, 2 times a day, # 60 tablet, 11 Refills, Maintenance, 07/12/22 13:42:00 EDT, Tablet, [facility] #[id number], cancel previous metformin scripts, 152, cm, 07/12/22 13:07:00 EDT, Height, 175.5, kg, 08/09/20 0:18:00 EDT,... Start Date: 07/12/22 Status: Ordered multivitamin Multiple Vitamins oral capsule 1 capsule, By Mouth, Daily, # 30 capsule, 0 Refills, Maintenance, 03/23/23 7:59:00 EDT, Capsule, [facility] #[id number], Partial fill upon patient request if the [...] 11 Refills, Maintenance, 04/21/22 12:34:00 EDT, Powder, [facility] #[id number], Partial fill upon patient request if the prescription is for a schedule II opioid drug., 1 puffs... Start Date: 04/21/22 Stop Date: 04/16/23 Status: Ordered Trulicity Pen 0.75 mg/0.5 mL subcutaneous solution 0.5 mL = 0.75 mg, Subcutaneous Injection, Every week, rotate injection sites, # 2 mL, 3 Refills, Maintenance, 07/12/22 14:01:00 EDT, Solution, [facility] #[id number], Partial fill upon patient request if the prescription is for a schedule II opio... Start Date: 07/12/22 Status: Ordered Vitamin D3 2000 intl units oral capsule 1 capsule = 2,000 International_Units, By Mouth, Daily, # 60 capsule, 2 Refills, Maintenance, 07/17/22 16:56:00 EDT, Capsule, [facility] #[id number], Partial fill upon patient request if the [...] Confirmed Active DMII Confirmed Active 1DrRyder Wade [phone], Norma. Dx 06/07/09 Social History Social History Type Response Smoking Status Former smoker, quit more than 30 days ago entered on: 06/11/19 Sex Patient Care team information Care Team Personnel Name: Becca Crain RN Position: S RN Member Role: Primary Care Nurse Name: Jayna Sandhu RN Position: [facility] RN Member Role: Primary Care Nurse Name: Maty Valencia RN Position: [facility] RN Member Role: Primary Care Nurse Name: Roger Peña RN Position: [facility] RN Supv Member Role: Primary Care Nurse Name: Mihir Jackson RN Position: [facility] RN Member Role: Primary Care Nurse Name: Danya Roman RN Position: [facility] SN RN Member Role: Primary Care Nurse Name: Kem RNAshley Position: [facility] ED RN W/OE and Tasks Member Role: Primary Care Nurse Name: Elma Caruso (INSTR) Position: [facility] RN Member Role: Primary Care Nurse Name: Amanda Huerta RN Position: [facility] RN Member Role: Primary Care Nurse Name: Yessica Stock Position: [facility] RN Member Role: Primary Care Nurse Name: Hazel Valadez DO Position: [facility] Resident Member Role: PCP Address: Address: [address] [place] [address] [place] [address]- Name: Juli Calles RN Position: [facility] RN Member Role: Primary Care Nurse Care Team Related Persons Name: LINDA ZULEIMA Address: [place] [address] Name: LUCITA TEMPLE Address: home Name: LARA TEMPLE Name: JUSTIN HINES
--- OUTSIDE RECORDS SUMMARY | 2024-04-04 10:12 | XMS_ITS | Continuity of Care Document ---
Author Organization [facility] Address [address] [place] [address]- Care Team Providers Care Putter In Name Role Phone Joey Steele MD Primary Care Physician [facility]counter [facility] Date(s): 01/23/22 - 02/22/22 [facility] [address] [place], [place] [address] Allergies, Adverse Reactions, Alerts [...] Reason: Med Not Available 3Result Comment: [10/30/2014] [id number] 4Admin Note: VIS GIVEN DATED: 04/29/12 5Admin Note: vis given 05/23/11 6Admin Note: VIS GIVEN-DATED 06/07/10 7Admin Note: vis give dated 08/03/09 8Admin Note: VIS GIVEN VIS DATE 05/08/06 Medications albuterol 0.083% inhalation solution 3 mL = 2.5 mg, Inhalation, Every 6 hours, # 360 mL, 11 Refills, Maintenance, 08/29/20 20:48:00 EST,Solution, [facility], 152, cm, 08/13/20 13:28:00 EDT, Height, 175.5, kg, 08/09/20 0:18:00 EDT, Dry Weight Start Date: 08/29/20 Stop Date: 08/24/21 Status: Ordered albuterol CFC free 90 mcg/inh inhalation aerosol 2, puffs, Inhalation, 4 times a day, PRN, FOR WHEEZING AND SHORTNESS OF BREATH, # 1 each, Refills 5, Tot. Refills 5, Maintenance, 08/24/21 20:48:00 EDT, Route to Pharmacy Electronically, [id number], [facility] #[id number]... Start Date: 08/24/21 Stop Date: 02/20/22 Status: Ordered duloxetine 60 mg oral enteric coated capsule 1 capsule = 60 mg, By Mouth, Daily, # 30 capsule, 10 Refills, Maintenance, 10/14/20 15:08:00 EST, EC Capsule, [facility] #[id number], Partial fill upon patient request if the prescription is fora schedule II opioid drug., 152, cm, 08/13/20 13:28... Start Date: 10/14/20 Status: Ordered furosemide 40 mg oral tablet 40 mg, 1, tablet, By Mouth, 2 times a day, # 180 tablet, Refills 11, Tot. Refills 11, Maintenance, 01/23/22 17:08:00 EDT, Route to Pharmacy Electronically, [facility] #[id number], 152, cm, 06/17/21 8:41:00 EDT, Height, 175.5, kg, 08/09/20 0:18:00... Start Date: 01/23/22 Stop Date: 01/07/25 Status: Ordered hydrOXYzine hydrochloride 25 mg oral tablet 1 tablet = 25 mg, By Mouth, 4 times a day, PRN for anxiety, # 40 tablet, 1 Refills, Maintenance, 08/28/21 15:25:00 EDT, [id number], Partial fill upon patient request if the prescription is for a schedule II opioid drug., 152,... Start Date: 08/28/21 Stop Date: 10/27/21 Status: Ordered meloxicam 15 mg oral tablet 1 tablet = 15 mg, By Mouth, Daily, For knee and back pain, # 30 tablet, 2 Refills, Maintenance, 06/17/21 9:06:00 EDT, [id number], Partial fill upon patient request if the prescription is for a schedule II opioid drug., 152, cm... Start Date: 06/17/21 Status: Ordered metFORMIN 1000 mg oral tablet 1 tablet = 1,000 mg, By Mouth, 2 times a day, # 60 tablet, 11 Refills, Maintenance, 06/17/21 9:12:00 EDT, [facility][id number], cancel previous metformin scripts, 152, cm, 06/17/21 [...] tablet, 10 Refills, Maintenance, 10/14/20 15:09:00 EST, [id number], 152, cm, 08/13/20 13:28:00 EDT, Height, 175.5, [...] 2 Refills, Maintenance, 11/02/20 10:14:00 EST, Capsule, [facility] #[id number], Partial fill upon patient request if the [...] Active Osteoarthritis(Confirmed) Active DMII(Confirmed) Active 1DrRyder Wade [phone], Norma. Dx 06/07/09 Social History Social History Type Response Smoking Status Former smoker, quit more than 30 days ago entered on: 06/11/19 Sex
--- OUTSIDE RECORDS SUMMARY | 2024-04-04 10:12 | XMS_ITS | Continuity of Care Document ---
Author Organization [facility] Address [address] [place] [address]- Care Team Providers Care Form Tamping Machine Operator Name Role Phone Joey Steele MD Primary Care Physician Encounter [facility] Date(s): 03/14/21 - 04/15/21 [facility] [address] [place], [place] [address] Attending Physician: Ralf Gonzalez MD Admitting Physician: Ralf Gonzalez MD Allergies, Adverse Reactions, [...] Reason: Med Not Available 2Result Comment: [10/30/2014] [id number] 3Admin Note: VIS GIVEN DATED: 04/29/12 4Admin Note: vis given 05/23/11 5Admin Note: VIS GIVEN-DATED 06/07/10 6Admin Note: vis give dated 08/03/09 7Admin Note: VIS GIVEN VIS DATE 05/08/06 Medications albuterol 0.083% inhalation solution 3 mL = 2.5 mg, Inhalation, Every 6 hours, # 360 mL, 11 Refills, Maintenance, 08/29/20 20:48:00 EST,Solution, [facility], 152, cm, 08/13/20 13:28:00 [...] 08/29/20 20:48:00 EST, Route to Pharmacy Electronically, [id number]... Start Date: 08/29/20 Stop Date: 08/24/21 Status: Ordered albuterol CFC free 90 mcg/inh inhalation aerosol 2, puffs, Inhalation, 4 times a day, PRN, FOR WHEEZING AND SHORTNESS OF BREATH, # 1 each, Refills 5, Tot. Refills 5, Maintenance, 08/24/21 20:48:00 EDT, Route to Pharmacy Electronically, [id number], [facility] #[id number]... Start Date: 08/24/21 Stop Date: 02/20/22 [...] Refills, Maintenance, 10/14/20 15:08:00 EST, EC Capsule, [facility] #[id number], Partial fill upon patient request if the prescription is fora schedule II opioid drug., 152, cm, 08/13/20 13:28... Start Date: 10/14/20 Status: Ordered furosemide 40 mg oral tablet 40 mg, 1, tablet, By Mouth, 2 times a day, # 60 tablet, Refills 10, Tot. Refills 10, Maintenance, 10/14/20 15:09:00 EST, Route to Pharmacy Electronically, [facility] #[id number], 152, cm, 08/13/20 13:28:00 EDT, Height, 175.5, kg, 08/09/20 0:18:00... Start Date: 10/14/20 Stop Date: 09/09/21 Status: Ordered indomethacin 50 mg oral capsule 1 capsule = 50 mg, By Mouth, 3 times a day, PRN for gout pain, # 15 capsule, 0 Refills, Maintenance, 03/16/21 16:28:00 EDT, Capsule, [facility] #[id number], Partial fill upon patient request if the prescription is for a schedule II opioid drug.,... Start Date: 03/16/21 Stop Date: 03/21/21 Status: Ordered metFORMIN 1000 mg oral tablet 1 tablet = 1,000 mg, By Mouth, 2 times a day, takes once daily for 2 weeks, then increase to BID, #60 tablet, 11 Refills, Maintenance, 10/14/20 15:09:00 EST, Tablet, [facility] #[id number], 152, cm, 08/13/20 13:28:00 EDT, Height, 175.5, kg, 07/29... Start Date: 10/14/20 Status: Ordered morphine 15 mg oral tablet, immediate release 1 tablet = 15 mg, By Mouth, Every 4 hours, PRN as needed for pain, # 10 tablet, 0 Refills, Maintenance, 03/12/21 1:49:00 EDT, Tablet, [facility] #[id number], Partial fill upon patient request, 152, cm, [...] 10 Refills, Maintenance, 10/14/20 15:09:00 EST, Tablet, [facility] #[id number], 152, cm, 08/13/20 13:28:00 EDT, Height, 175.5, kg, 08/09/20 0:18:00 EDT, Dry Weight Start Date: 10/14/20 Status: Ordered Vitamin D3 2000 intl units oral capsule 1 capsule = 2,000 International_Units, By Mouth, Daily, # 60 capsule, 2 Refills, Maintenance, 11/02/20 10:14:00 EST, Capsule, [facility] #[id number], Partial fill upon patient request if the [...] home CPAP(Confirmed) Active DMII(Confirmed) Active 1DrRyder Wade [phone], Norma. Dx 06/07/09 Social History Social History Type Response Smoking Status Former smoker, quit more than 30 days ago entered on: 06/11/19 Sex
--- OUTSIDE RECORDS SUMMARY | 2024-04-04 10:13 | XMS_ITS | Continuity of Care Document ---
Author Organization [facility] Address [address] [place] [address]- Care Team Providers Care Out Of Town Collection Clerk Name Role Phone Hazel Valadez DO Primary Care Physician [facility] Date[facility]s): 09/05/23 - 10/05/23 [facility] [address] [place] [address]- Allergies, Adverse Reactions, Alerts Substance Reaction Severity [...] Reason: Med Not Available 2Result Comment: [10/30/2014] [id number] 3Admin Note: VIS GIVEN DATED: 04/29/12 4Admin Note: vis given 05/23/11 5Admin Note: VIS GIVEN-DATED 06/07/10 6Admin Note: vis give dated 08/03/09 7Admin Note: VIS GIVEN VIS DATE 05/08/06 Medications Advair Diskus 250 mcg-50 mcg inhalation powder 1, puffs, Inhalation, 2 times a day, # 28 each, Refills 0, Tot. Refills 0, Maintenance, 09/06/23 14:10:00 EST, Powder, Route to Pharmacy Electronically, [id number], [facility] #[id number], 153, cm, 08/19/23 2:04:00 EDT,... Start Date: 09/06/23 Status: Ordered albuterol 0.083% inhalation solution 3 mL = 2.5 mg, Inhalation, Every 6 hours, # 360 mL, 11 Refills, Maintenance, 09/06/23 8:33:00 EST, Solution, [facility] #[id number], 153, cm, 08/19/23 2:04:00 EDT, Height, 171.8, [...] 01/07/25 17:08:00 EDT, Route to Pharmacy Electronically, [facility] #[id number], 149.86, cm, 02/09/23 15:52:00 EDT, Height, 172.3, kg, 11/26/22 5:4... Start Date: 01/07/25 Stop Date: 12/23/27 Status: Ordered gabapentin 100 mg oral capsule 100 mg, 1, capsule, By Mouth, 3 times a day, # 90 capsule, Refills 0, Tot. Refills 0, Maintenance, 12/14/22 17:21:00 EST, Route to Pharmacy Electronically, [facility] #[id number], Partial fill upon patient request if the prescription is for a kelly... Start Date: 12/14/22 Status: Ordered metFORMIN 1000 mg oral tablet 1 tablet = 1,000 mg, By Mouth, 2 times a day, # 60 tablet, 11 Refills, Maintenance, 09/24/23 9:06:00 EST, Tablet, [facility] #[id number], cancel previous metformin scripts, 153, cm, 09/16/23 13:33:00 EST, Height, 176, kg, 09/16/23 13:33:00 EST, D... Start Date: 09/24/23 Status: Ordered multivitamin Multiple Vitamins oral capsule 1 capsule, By Mouth, Daily, # 30 capsule, 0 Refills, Maintenance, 09/06/23 8:33:00 EST, Capsule, [facility] #[id number], Partial fill upon patient request if the [...] 2 Refills, Maintenance, 09/24/23 9:06:00 EST, Capsule, [facility] #[id number], Partial fill upon patient request if the [...] Confirmed Active DMII Confirmed Active 1DrRyder Wade [phone], Norma. Dx 06/07/09 Social History Social History [...] Care Nurse Name: Roger Peña RN Position: [facility] RN Supv Member Role: Primary Care Nurse Name: Mihir Jackson RN Position: [facility] RN Member Role: Primary Care Nurse Name: Danya Roman RN Position: [facility] SN RN Member Role: Primary Care Nurse Name: Kem RNAshley Position: [facility] ED RN W/OE and Tasks Member Role: Primary Care Nurse Name: Elma Caruso (INSTR) Position: [facility] RN Member Role: Primary Care Nurse Name: Amanda Huerta RN Position: [facility] RN Member Role: Primary Care Nurse Name: Yessica Stock Position: S RN Member Role: Primary Care Nurse Name: Hazel Valadez DO Position: [facility] Resident Member Role: PCP Address: Address: [address] [place] [address] [place] [address]- Name: Juli Calles RN Position: [facility] RN Member Role: Primary Care Nurse Care Team Related Persons Name: ZULEIMA MCKEON Address: [place] [address] Name: ZAYRA STREETER Address: home [address] [address] Name: LUCITA TEMPLE Address: home Name: LARA TEMPLE Address: home [address] [address] Name: JUSTIN HINES
--- OUTSIDE RECORDS SUMMARY | 2024-04-04 10:13 | XMS_ITS | Continuity of Care Document ---
Author Organization [facility] ter Address [address] [place] [id number]- Care Team Providers Care Eviction Specialist Name Role Phone Hazel Valadez DO Primary Care Physician Encounter [facility] – [place] Date(s): 03/31/23 - 03/31/[address] [address]- Discharge Disposition: A-D/C Home Attending Physician: Dena Garcia MD Admitting Physician: Dena Garcia MD Referring Physician: Not on Staff, Referring [...] Reason: Med Not Available 2Result Comment: [10/30/2014] [id number] 3Admin Note: VIS GIVEN DATED: 04/29/12 4Admin Note: vis given 05/23/11 5Admin Note: VIS GIVEN-DATED 06/07/10 6Result Comment: in error 7Admin Note: vis give dated 08/03/09 8Admin Note: VIS GIVEN VIS DATE 05/08/06 Medications acetaminophen 500 mg oral capsule 1 capsule = 500 mg, By Mouth, Every 6 hours, PRN for pain, for 5 days, # 20 capsule, 0 Refills, Acute 04/05/23 21:57:00 EDT, 03/31/23 21:57:00 EDT, Capsule, [facility] #[id number], Partial fill upon patient request if the prescription is for a sc... Start Date: 03/31/23 Stop Date: 04/05/23 Status: Ordered albuterol 0.083% inhalation solution 3 mL = 2.5 mg, Inhalation, Every 6 hours, # 360 mL, 11 Refills, Maintenance, 07/17/22 11:50:00 EDT,Solution, [facility] #[id number], 152, cm, 07/12/22 13:07:00 EDT, Height, 175.5, [...] EDT, Supply Start Date: 07/18/22 Status: Ordered cefpodoxime 200 mg oral tablet 1 tablet = 200 mg, By Mouth, Every 12 hours, for 7 days, # 14 tablet, 0 Refills, Acute 04/07/23 21:57:00 EDT, 03/31/23 21:57:00 EDT, Tablet, [facility] #[id number], Partial fill upon patient request if the prescription is for a schedule II opioid... Start Date: 03/31/23 Stop Date: 04/07/23 Status: Ordered famotidine 20 mg oral tablet 20 mg, 1, tablet, By Mouth, Daily, # 7 tablet, Refills 0, Tot. Refills 0, Maintenance, 03/31/23 21:58:00 EDT, Route to Pharmacy Electronically, [facility] #[id number], Partial fill upon patient request if the [...] 01/07/25 17:08:00 EDT, Route to Pharmacy Electronically, [facility] #[id number], 149.86, cm, 02/09/23 15:52:00 EDT, Height, 172.3, kg, 11/26/22 5:4... Start Date: 01/07/25 Stop Date: 12/23/27 Status: Ordered furosemide 40 mg oral tablet 40 mg, 1, tablet, By Mouth, 2 times a day, for 90 days, # 180 tablet, Refills 11, Tot. Refills 11, Hard Stop 01/07/25 17:08:00 EDT, 01/23/22 17:08:00 EDT, Route to Pharmacy Electronically, [facility] #[id number], 152, cm, 06/17/21 8:41:00 EDT, He... Start Date: 01/23/22 Stop Date: 01/07/25 Status: Ordered gabapentin 100 mg oral capsule 100 mg, 1, capsule, By Mouth, 3 times a day, # 90 capsule, Refills 0, Tot. Refills 0, Maintenance, 12/14/22 17:21:00 EST, Route to Pharmacy Electronically, [facility] #[id number], Partial fill upon patient request if the prescription is for a kelly... Start Date: 12/14/22 Status: Ordered ibuprofen 800 mg oral tablet 800 mg, 1, tablet, By Mouth, 3 times a day, for pain with food or milk, # 30 tablet, Refills 0, Tot. Refills 0, Maintenance, 02/09/23 17:06:00 EDT, Route to Pharmacy Electronically, [facility] #[id number], Partial fill upon patient request if th... Start Date: 02/09/23 Status: Ordered metFORMIN 1000 mg oral tablet 1 tablet = 1,000 mg, By Mouth, 2 times a day, # 60 tablet, 11 Refills, Maintenance, 07/12/22 13:42:00 EDT, Tablet, [facility] #[id number], cancel previous metformin scripts, 152, cm, 07/12/22 13:07:00 EDT, Height, 175.5, kg, 08/09/20 0:18:00 EDT,... Start Date: 07/12/22 Status: Ordered MorPHINE Inj 4 mg, Injection, IV Push Slowly, Once, STAT, 03/31/23 19:18:00 EDT, Stop date 03/31/23 19:18:00 EDT Start Date: 03/31/23 Stop Date: 03/31/23 Status: Completed multivitamin Multiple Vitamins oral capsule 1 capsule, By Mouth, Daily, # 30 capsule, 0 Refills, Maintenance, 03/23/23 7:59:00 EDT, Capsule, [facility] #[id number], Partial fill upon patient request if the [...] 11 Refills, Maintenance, 04/21/22 12:34:00 EDT, Powder, [facility] #[id number], Partial fill upon patient request if the prescription is for a schedule II opioid drug., 1 puffs... Start Date: 04/21/22 Stop Date: 04/16/23 Status: Ordered Trulicity Pen 0.75 mg/0.5 mL subcutaneous solution 0.5 mL = 0.75 mg, Subcutaneous Injection, Every week, rotate injection sites, # 2 mL, 3 Refills, Maintenance, 07/12/22 14:01:00 EDT, Solution, [facility] #[id number], Partial fill upon patient request if the prescription is for a schedule II opio... Start Date: 07/12/22 Status: Ordered Vitamin D3 2000 intl units oral capsule 1 capsule = 2,000 International_Units, By Mouth, Daily, # 60 capsule, 2 Refills, Maintenance, 07/17/22 16:56:00 EDT, Capsule, [facility] #[id number], Partial fill upon patient request if the [...] Confirmed Active DMII Confirmed Active 1DrRyder Wade [phone], Norma. Dx 06/07/09 Results Radiology Reports * Exam Date Time Procedure Performing Provider Status 03/31/23 9:[address] Abd/Pelvis W/ IV Contrast Only Annita Ramsey (Verified) Notes: (CT Abd/Pelvis W/ IV Contrast Only) Reason For Exam: epigastric abdominal pain;Other: RESULT: CT Abd/Pelvis W/ IV Contrast Only CT Abd/Pelvis W/ IV Contrast Only Hx of Present Illness: Patient comes in with abdominal pain which started this morning. Pain in hermid epigastrium with radiation to the upper quadrants.; Reason: epigastric abdominal pain; ClinicalQuestion(s): ventral hernia, infection TECHNIQUE: Spiral CT through the abdomen and pelvis with IV contrast formatted in 3 planes. 100 cc of Omnipaque 300 was administered intravenously. This study was performed without oral contrast. Weight-based protocol using automatic tube modulation was used to optimize exposure parameters. CTDIvol Body: 39.70 mGy, DLP Body: 2085 mGy*cm. COMPARISON: None. FINDINGS: Drum Builder View Findings, Lines and Tubes: None. Visualized Chest: Lung bases are clear. No pleural effusion. The heart is normal in size. No pericardial effusion. Diaphragm: Normal. Liver: Normal. Gallbladder: No CT evidence of gallbladder pathology. Bile ducts: No biliary ductal dilation. Spleen: Borderline splenic size measuring 13.4 cm AP. Pancreas: Normal. Adrenal glands: Normal. Kidneys and ureters: No hydronephrosis, stones, or suspicious masses. Bladder: Normal. Reproductive organs: Unremarkable. Stomach, small bowel, and large bowel: No evidence of obstruction or inflammation Appendix: Normal. Peritoneum and retroperitoneum: No ascites or pneumoperitoneum. No omental or mesenteric lesions. Lymph nodes: No enlarged lymph nodes. Blood vessels: Mild vascular calcifications but no aneurysm. No evidence of venous thrombosis. Abdominal and pelvic wall: Small fat-containing umbilical hernia with a neck measuring 7 mm. Bones: No acute abnormality. IMPRESSION: No acute process within the abdomen or pelvis. Small fat-containing umbilical hernia. I have personally reviewed the images and I agree with this report. WSN: [id number] Ordering Physician: Jennifer Lees Dictated By: Maxx Hernandez DO Dictated Date/Time: 03/31/23 9:41 pm Reviewed By: Brennan Estevez MD Signed By: Brennan Estevez MD Signed Date/Time: 03/31/23 9:46 pm Transcribed By: JACOB Transcribed Date/Time: 03/31/23 9:26 pm Vital Signs Most recent to oldest [Reference Range]: 1 2 3 Height 153 cm (03/31/23 6:24 PM) 153 cm (03/31/23 4:34 PM) Oxygen Saturation [94-100 %] 95 % (03/31/23: PM) 94 % (03/31/23 9:09 PM) 97 % (03/31/23 6:24 PM) Pulse Rate [55-90 bpm] 77 bpm (03/31/23 10:23 PM) 85 bpm (03/31/23 9:09 PM) 78 bpm (03/31/23 6:24 PM) Blood Pressure [90-138/55-84 mm Hg] 124/84mm Hg (03/31/23 10:23 PM) 136/73mm Hg (03/31/23 9:09 PM) 112/68mm Hg (03/31/23 6:24 PM) Respiratory Rate [16-30 br/min] 20 br/min (03/31/23 10:23 PM) 18 br/min (03/31/23 9:09 PM) 20 br/min (03/31/23 7:49 PM) Temperature [96.8-100.4 DegF] 98.2 DegF (03/31/23 9:09 PM) 98.4 DegF (03/31/23 6:24 PM) 99.1 DegF (03/31/23 4:34 PM) Liters per Minute 3 L/min (03/31/23 10:23 PM) 3 L/min (03/31/23 9:09 PM) 3 L/min (03/31/23 4:34 PM) Mode of Delivery (Oxygen) Nasal cannula (03/31/23 10:23 PM) Nasal cannula (03/31/23 9:09 PM) Room air (03/31/23 6:24 PM) Blood pressure sites Arm, right (03/31/23 10:23 PM) Arm, right (03/31/23 9:09 PM) Arm, left (03/31/23 6:24 PM) Temperature Route Oral (03/31/23 9:09 PM) Oral (03/31/23 6:24 PM) Oral (03/31/23 4:34 PM) Dry Weight 168 kg (03/31/23 6:24 PM) 168 kg (03/31/23 4:34 PM) Dry Weight Obtained Via Patient/family s tated (03/31/23 4:34 PM) Social History Social History Type Response Smoking Status Former smoker, quit more than 30 days ago entered on: 06/11/19 Sex Note * Jennifer Ricardo: PERFORM Event Display: Patient Education Leaflets Authored Date: [id number] Multiple Documents ?? [id number] Urinary Tract Infections in Women Urinary tract infections (UTIs) are most often caused by bacteria. These bacteria enter the urinarytract. The bacteria may come from inside the body. Or they may travel from the skin outside the rectum or vagina into the urethra. Female anatomy makes it easy for bacteria from the bowel to enter a woman???s urinary tract. This is the most common source of UTI. This means women develop UTIs more often than men. Pain in or around the urinary tract is a common UTI symptom. Most UTIs are treated with antibiotics. These kill the bacteria. The length of time you need to take them depends on the type of infection. It may be as short as 3 days. If you have repeated UTIs, you may need a low-dose antibiotic for several months. Take antibiotics exactly as directed. Don???t stop taking them until all of the medicine is gone. If you stop taking the antibiotic too soon, the infection may not go away. You may also develop a resistance to the antibiotic. This can make it muchharder to treat in the future. Gender words are used here to talk about anatomy and health risk. Please use this information in a way that works best for you and your provider as you talk about your care. Home care The lifestyle changes below will help get rid of your UTI. They may also help prevent future UTIs: ??? Drink plenty of fluids. This includes water, juice, or other caffeine-free drinks. Fluids help flush bacteria out of your body. ??? Empty your bladder. Always empty your bladder when you feel the urge to pee. And always pee before going to sleep. Urine that stays in your bladder can lead to infection. Try to pee before and after sex as well. ??? Practice good personal hygiene. Wipe yourself from front to back after using the toilet. This helps keep bacteria from getting into the urethra. ???Use condoms during sex. These help prevent UTIs caused by sexually transmitted bacteria. Also don'tuse spermicides during sex. These can increase the risk for UTIs. Choose other forms of control instead. For women who tend to get UTIs after sex, a low dose of a preventive antibiotic may be used. Be sure to discuss this choice with your healthcare provider. ??? Try holistic supplements, such as cranberry tablets and D-mannose. These may help prevent UTIs. ??? Try topical vaginal estrogen.You can use this to help prevent UTIs if you have gone through menopause. ?? Follow-up care Follow up with your healthcare provider as directed. They may test to make sure the infection has cleared. If needed, more treatment may be started. ?? When to get medical advice Call your healthcare provider right away if any of the following occur: ??? Frequent urination ??? Pain or burning when passing urine ??? Fever of 100.4??F (38??C) or higher, or as directed by your healthcare provider ??? Urine looks dark, cloudy, or reddish in color. This may mean that blood is inthe urine. ??? Urine smells bad ??? Feeling pain even when not urinating ??? Tiredness ??? Pain in the belly (abdomen) area below the bellybutton, or in the back or side, below the ribs ??? Nausea orvomiting ??? Have a strong urge to urinate, but only a small amount of urine is passed ??? Uncomfortable pressure above the pubic bone ??? Feeling confused or very tired (in older adults) ?? Last Reviewed Date: 2022 ?? [employer]. All rights reserved. This information is not intended as a substitute for professional medical care. Always follow your healthcare professional's instructions. ?? * Nabeel SNOW, Jennifer Lynch: PERFORM Event Display: Patient Education Leaflets Authored Date: [id number] Multiple Documents ?? [id number] Epigastric Pain (Uncertain Cause) Epigastric pain is pain in the upper abdomen. It can be a sign of disease. Common causes include: ??? Acid reflux (stomach acid flowing up into the esophagus) ??? Gastritis (irritation of the stomach lining). Most often this is from aspirin or NSAIDs (nonsteroidal anti-inflammatory drugs) such asibuprofen, bacteria called H. pylori, or frequent alcohol use. ??? Peptic ulcer disease ??? Inflammation of the pancreas (pancreatitis) ??? Gallstone ??? Inflammation in the gallbladder (cholecystitis) Pain may be dull or burning. It may spread upward to the chest or to the back. There may be other symptoms such as belching, bloating, cramps, or hunger pains. There may be weight loss or poor appetite, nausea, or vomiting. Since the cause of your pain is not certain yet, you may need more tests. Sometimes your healthcareprovider will treat you for the most likely condition to see if there is improvement before doing more tests. Talk with your provider about what is best for you. Home care Medicines ??? Antacids help neutralize the normal acids in your stomach. If you don???t like the liquid, you can try a chewable one. You may find one works better than another for you. Overuse can cause diarrhea or constipation. Call your provider if you have questions about your medicines or concerns about side effects. ??? Acid blockers (H2 blockers) decrease acid production. Examples are cimetidine and famotidine. ??? Acid inhibitors (PPIs) decrease acid production in a different way than blockers. You may find they work better but can take a little longer to take effect. Examples are omeprazole, lansoprazole, pantoprazole, rabeprazole, and esomeprazole. Many of these are available rxso-hes-[id number] or as generics. ??? Take an antacid 30 to 60??minutes after eating and at bedtime, but not at the same time as an acid eve. ??? Try not to take NSAIDs such as ibuprofen. Aspirin may also cause problems, but if you are taking it for your heart or other medical reasons, talk to your healthcare provider before stopping it. Diet ??? If certain foods seem to cause your pain, try not to eat them. Certain foods can worsen symptoms of gastritis. Limit or avoid fatty, fried, and spicy foods, as well as coffee, chocolate, mint, and foods with high acid content such as tomatoes and citrus fruit and juices (orange, grapefruit, lemon). ??? Eat slowly and chew food well before swallowing. ??? Don't drink alcohol. It can irritate the stomach. If you have trouble giving up alcohol, ask your provider for treatment resources. ??? Don't consume caffeine or use tobacco. These can delay healing??and worsen your problem. ??? Try eating smaller meals with snacks in between. Don't eat large meals before bedtime. ??? Keep an emptystomach for 2 to 3 hours before lying down. ??? Prop the head of the bed up if you have overnight symptoms. This helps acid clear from your esophagus. ?? Follow-up care Follow up with your healthcare provider or as advised. ?? When to seek medical advice Call your healthcare provider right away if any of the following occur: ??? Stomach pain worsens ormoves to the right lower part of the abdomen ??? Frequent vomiting (can???t keep down liquids) ??? Blood in the stool or vomit (red or black color) ??? Fever of 100.4??F (38??C) or higher, or as directed by your healthcare provider ??? Abdominal swelling ??? Worsening symptoms or new symptoms ?? Call 911 Call 911 if any of these occur: ??? Chest pain appears, or if pain worsens or spreads to the back, neck, shoulder, or arm ??? Feeling weak or dizzy, fainting, or having trouble breathing ?? Last Reviewed Date: 2022 ?? 6658-1315 [employer]. All rights reserved. This information is not intended as a substitute for professional medical care. Always follow your healthcare professional's instructions. ?? CT Abdomen and Pelvis W contrast IV * BHSPowerscribe , CIS S: TRANSCRIBE Zenaida MILLER, Devrim: VERIFY Mary ARMSTRONG, Maxx: SIGN Event Display: Result: Authored Date: [id number] CT Abd/Pelvis W/ IV Contrast Only Hx of Present Illness: Patient comes in with abdominal pain which started this morning. Pain in hermid epigastrium with radiation to the upper quadrants.; Reason: epigastric abdominal pain; ClinicalQuestion(s): ventral hernia, infection TECHNIQUE: Spiral CT through the abdomen and pelvis with IV contrast formatted in 3 planes. 100 cc of Omnipaque 300 was administered intravenously. This study was performed without oral contrast. Weight-based protocol using automatic tube modulation was used to optimize exposure parameters. CTDIvol Body: 39.70 mGy, DLP Body: 2085 mGy*cm. COMPARISON: None. FINDINGS: Drum Builder View Findings, Lines and Tubes: None. Visualized Chest: Lung bases are clear. No pleural effusion. The heart is normal in size. No pericardial effusion. Diaphragm: Normal. Liver: Normal. Gallbladder: No CT evidence of gallbladder pathology. Bile ducts: No biliary ductal dilation. Spleen: Borderline splenic size measuring 13.4 cm AP. Pancreas: Normal. Adrenal glands: Normal. Kidneys and ureters: No hydronephrosis, stones, or suspicious masses. Bladder: Normal. Reproductive organs: Unremarkable. Stomach, small bowel, and large bowel: No evidence of obstruction or inflammation Appendix: Normal. Peritoneum and retroperitoneum: No ascites or pneumoperitoneum. No omental or mesenteric lesions. Lymph nodes: No enlarged lymph nodes. Blood vessels: Mild vascular calcifications but no aneurysm. No evidence of venous thrombosis. Abdominal and pelvic wall: Small fat-containing umbilical hernia with a neck measuring 7 mm. Bones: No acute abnormality. IMPRESSION: No acute process within the abdomen or pelvis. Small fat-containing umbilical hernia. I have personally reviewed the images and I agree with this report. WSN: [id number] Ordering Physician: Jennifer Lees Dictated By: Maxx Hernandez DO Dictated Date/Time: 03/31/23 9:41 pm Reviewed By: Brennan Estevez MD Signed By: Brennan Estevez MD Signed Date/Time: 03/31/23 9:46 pm Transcribed By: JACOB Transcribed Date/Time: 03/31/23 9:26 pm Patient Care team information Care Team Personnel Name: Jayna Sandhu RN Position: S RN Member Role: Primary Care Nurse Name: Maty Valencia RN Position: [facility] RN Member Role: Primary Care Nurse Name: Roger Peña RN Position: [facility] RN Supv Member Role: Primary Care Nurse Name: Mihir Jackson RN Position: [facility] RN Member Role: Primary Care Nurse Name: Tessy Jaramillo RN Position: [facility] RN Member Role: Primary Care Nurse Name: Danya Roman RN Position: [facility] SN RN Member Role: Primary Care Nurse Name: Ashley Brownlee RN Position: [facility] ED RN W/OE and Tasks Member Role: Primary Care Nurse Name: Becca Enriuqe RN Position: S RN Member Role: Primary Care Nurse Name: Elma Caruso (INSTR) Position: S RN Member Role: Primary Care Nurse Name: Amanda Huerta RN Position: S RN Member Role: Primary Care Nurse Name: Yessica Stock Position: S RN Member Role: Primary Care Nurse Name: Hazel Valadez DO Position: S Resident Member Role: PCP Address: Address: [address] [place] [address] [place], [place] [address] Name: Radha Bravo RN Position: S RN Member Role: Primary Care Nurse Name: Juli Calles RN Position: S RN Member Role: Primary Care Nurse Name: Jennifer Ricardo Position: [facility] Associate Professional Member Role: ED Physician Straight Line Edger Address: Address: [address] [place] [address] Name: Shannon Guzman RN Position: [facility] ED RN W/OE and Tasks Member Role: Patient Care Provider Name: Dena Garcia MD Position: [facility] Resident Member Role: Admitting Physician Address: Address: [address] [place] [address] Care Team Related Persons Name: ZULIEMA MCKEON Address: [place] [address] Name: LUCITA TEMPLE Address: home Name: LARA TEMPLE Name: JUSTIN HINES
--- OUTSIDE RECORDS SUMMARY | 2024-04-04 10:13 | XMS_ITS | Continuity of Care Document ---
Author Organization [facility] Address [address] [place] [id number]- Care Team Providers Care Hydroblaster Name Role Phone Joey Steele MD Primary Care Physician [phone] Encounter [facility] Date(s): 12/14/20 - 01/13/21 [facility] [address] [place] [id number] Attending Physician: Vannesa Paulino Admitting Physician: AdmVannesa [...] Reason: Med Not Available 2Result Comment: [10/30/2014] [id number] 3Admin Note: VIS GIVEN DATED: 04/29/12 4Admin Note: vis given 05/23/11 5Admin Note: VIS GIVEN-DATED 06/07/10 6Admin Note: vis give dated 08/03/09 7Admin Note: VIS GIVEN VIS DATE 05/08/06 Medications albuterol 0.083% inhalation solution 3 mL = 2.5 mg, Inhalation, Every 6 hours, # 360 mL, 11 Refills, Maintenance, 08/29/20 20:48:00 EST,Solution, [facility], 152, cm, 08/13/20 13:28:00 EDT, Height, 175.5, kg, 08/09/20 0:18:00 EDT, Dry Weight Start Date: 08/29/20 Stop Date: 08/24/21 Status: Ordered albuterol CFC free 90 mcg/inh inhalation aerosol 2, puffs, Inhalation, 4 times a day, PRN, FOR WHEEZING AND SHORTNESS OF BREATH, # 1 each, Refills 11, Tot. Refills 11, Maintenance, 08/29/20 20:48:00 EST, Route to Pharmacy Electronically, [id number], [facility]... Start Date: 08/29/20 Stop [...] Refills, Maintenance, 10/14/20 15:08:00 EST, EC Capsule, [facility][id number], Partial fill upon patient request if the prescription is fora schedule II opioid drug., 152, cm, 08/13/20 13:28... Start Date: 10/14/20 Status: Ordered furosemide 40 mg oral tablet 40 mg, 1, tablet, By Mouth, 2 times a day, # 60 tablet, Refills 10, Tot. Refills 10, Maintenance, 10/14/20 15:09:00 EST, Route to Pharmacy Electronically, [facility][id number], 152, cm, 08/13/20 13:28:00 EDT, Height, 175.5, kg, 08/09/20 0:18:00... Start Date: 10/14/20 Stop Date: 09/09/21 Status: Ordered metFORMIN 1000 mg oral tablet 1 tablet = 1,000 mg, By Mouth, 2 times a day, takes once daily for 2 weeks, then increase to BID, #60 tablet, 11 Refills, Maintenance, 10/14/20 15:09:00 EST, Tablet, [facility] #[id number], 152, cm, 08/13/20 13:28:00 EDT, Height, 175.5, [...] 10 Refills, Maintenance, 10/14/20 15:09:00 EST, Tablet, [facility][id number], 152, cm, 08/13/20 13:28:00 EDT, Height, 175.5, kg, 08/09/20 0:18:00 EDT, Dry Weight Start Date: 10/14/20 Status: Ordered Vitamin D3 2000 intl units oral capsule 1 capsule = 2,000 International_Units, By Mouth, Daily, # 60 capsule, 2 Refills, Maintenance, 11/02/20 10:14:00 EST, Capsule, [facility][id number], Partial fill upon patient request if the [...] home CPAP(Confirmed) Active DMII(Confirmed) Active 1DrRyder Wade [phone], Norma. Dx 06/07/09 Social History Social History Type Response Smoking Status Former smoker, quit more than 30 days ago entered on: 06/11/19 Sex
--- OUTSIDE RECORDS SUMMARY | 2024-04-04 10:13 | XMS_ITS | Continuity of Care Document ---
Author Organization [facility] Address [address] [place] [address]- Care Team Providers Care Communication Specialist Name Role Phone Hazel Valadez DO Primary Care Physician [phone] [facility]22 - 08/04/22 [facility] [address] [place] [address]- Attending Physician: Flo Santillan NP Admitting Physician: Flo Santillan NP Allergies, Adverse Reactions, Alerts Substance Reaction [...] Reason: Med Not Available 3Result Comment: [10/30/2014] [id number] 4Admin Note: VIS GIVEN DATED: 04/29/12 5Admin Note: vis given 05/23/11 6Admin Note: VIS GIVEN-DATED 06/07/10 7Admin Note: vis give dated 08/03/09 8Admin Note: VIS GIVEN VIS DATE 05/08/06 Medications albuterol 0.083% inhalation solution 3 mL = 2.5 mg, Inhalation, Every 6 hours, # 360 mL, 11 Refills, Maintenance, 07/17/22 11:50:00 EDT,Solution, [facility] #[id number], 152, cm, 07/12/22 13:07:00 EDT, Height, 175.5, kg, 08/09/20 0:18:00 EDT, Dry Weight Start Date: 07/17/22 Stop Date: 07/12/23 Status: Ordered albuterol CFC free 90 mcg/inh inhalation aerosol 2, puffs, Inhalation, 4 times a day, PRN, FOR WHEEZING AND SHORTNESS OF BREATH, # 1 each, Refills 5, Tot. Refills 5, Maintenance, 08/24/21 20:48:00 EDT, Route to Pharmacy Electronically, [id number], [facility] #[id number]... Start Date: 08/24/21 Stop Date: 02/20/22 [...] 01/23/22 17:08:00 EDT, Route to Pharmacy Electronically, [facility] #[id number], 152, cm, 06/17/21 8:41:00 EDT, Height, 175.5, kg, 08/09/20 0:18:00... Start Date: 01/23/22 Stop Date: 01/07/25 Status: Ordered gabapentin 100 mg oral capsule 100 mg, 1, capsule, By Mouth, 3 times a day, # 90 capsule, Refills 0, Tot. Refills 0, Maintenance, 07/12/22 14:00:00 EDT, Route to Pharmacy Electronically, [facility] #[id number], Partial fill upon patient request if the prescription is for a kelly... Start Date: 07/12/22 Status: Ordered hydrOXYzine hydrochloride 25 mg oral tablet 1 tablet = 25 mg, By Mouth, 4 times a day, PRN for anxiety, # 40 tablet, 1 Refills, Maintenance, 07/12/22 13:42:00 EDT, Tablet, [facility] #[id number], Partial fill upon patient request if the prescription is for a schedule II opioid drug., 152,... Start Date: 07/12/22 Stop Date: 09/10/22 Status: Ordered lisinopril 5 mg oral tablet 5 mg, 1, tablet, By Mouth, Daily, # 30 tablet, Refills 2, Tot. Refills 2, Maintenance, 07/17/22 17:03:00 EDT, Route to Pharmacy Electronically, [facility] #[id number], Please disregard 10mg dosing, 152, cm, 07/12/22 13:07:00 EDT, Height, 175.5, k... Start Date: 07/17/22 Status: Ordered metFORMIN 1000 mg oral tablet 1 tablet = 1,000 mg, By Mouth, 2 times a day, # 60 tablet, 11 Refills, Maintenance, 07/12/22 13:42:00 EDT, Tablet, [facility] #[id number], cancel previous metformin scripts, 152, cm, 07/12/22 [...] 10 Refills, Maintenance, 10/14/20 15:09:00 EST, Tablet, [facility] #[id number], 152, cm, 08/13/20 13:28:00 EDT, Height, 175.5, [...] 11 Refills, Maintenance, 04/21/22 12:34:00 EDT, Powder, [facility] #[id number], Partial fill upon patient request if the prescription is for a schedule II opioid drug., 1 puffs... Start Date: 04/21/22 Stop Date: 04/16/23 Status: Ordered Trulicity Pen 0.75 mg/0.5 mL subcutaneous solution 0.5 mL = 0.75 mg, Subcutaneous Injection, Every week, rotate injection sites, # 2 mL, 3 Refills, Maintenance, 07/12/22 14:01:00 EDT, Solution, [facility] #[id number], Partial fill upon patient request if the prescription is for a schedule II opio... Start Date: 07/12/22 Status: Ordered Vitamin D3 2000 intl units oral capsule 1 capsule = 2,000 International_Units, By Mouth, Daily, # 60 capsule, 2 Refills, Maintenance, 07/17/22 16:56:00 EDT, Capsule, [facility] #[id number], Partial fill upon patient request if the [...] Confirmed Active DMII Confirmed Active 1DrRyder Wade [phone], Norma. Dx 06/07/09 Social History Social History Type Response Smoking Status Former smoker, quit more than 30 days ago entered on: 06/11/19 Sex Patient Care team information Personnel Name: Hazel Valadez DO Address: Address: [address] [place] [address]
--- OUTSIDE RECORDS SUMMARY | 2024-04-04 10:13 | XMS_ITS | Continuity of Care Document ---
Author Organization [facility] Address [address] [place] [address]- Care Team Providers Care Vehicle Damage Appraiser Name Role Phone Joey Steele MD Primary Care Physician [facility] 07[facility]20 - 08/21/20 [facility] [address] [place] [address]- [facility] Allergies, Adverse Reactions, Alerts Substance Reaction Severity [...] Reason: Med Not Available 2Result Comment: [10/30/2014] [id number] 3Admin Note: VIS GIVEN DATED: 04/29/12 4Admin [...] 08/13/20 11:22:00 EDT, Route to Pharmacy Electronically, [facility], not to exceed 4 gm... Start Date: 08/13/20 Stop Date: 09/12/20 Status: Ordered albuterol 0.083% inhalation solution 3 mL = 2.5 mg, Inhalation, Every 6 hours, # 360 mL, 11 Refills, Maintenance, 07/28/20 7:41:00 EDT, Solution, [facility] #[id number], 150, cm, 07/31/19 11:34:00 EDT, Height, 178.4, kg, 06/11/19 21:11:00 EDT, Dry Weight Start Date: 07/28/20 Stop Date: 07/23/21 Status: Ordered albuterol CFC free 90 mcg/inh inhalation aerosol 2, puffs, Inhalation, 4 times a day, PRN, FOR WHEEZING AND SHORTNESS OF BREATH, # 1 each, Refills 11, Tot. Refills 11, Maintenance, 11/22/18 12:58:17 EST, Route to Pharmacy Electronically, [id number], [facility]. Start Date: 11/22/18 Stop Date: 11/17/19 Status: [...] 0 Refills, Maintenance, 08/13/20 11:24:00 EDT, Capsule, [facility], 152, cm, 08/13/20 7:19:00 EDT, Height, 175.5, kg, 08/09/20 0:18:00 EDT, Dry Weight Start Date: 08/13/20 Stop Date: 09/12/20 Status: Ordered furosemide 40 mg oral tablet 40 mg, 1, tablet, By Mouth, 2 times a day, # 60 tablet, Refills 1, Tot. Refills 1, Maintenance, 08/13/20 11:21:00 EDT, Route to Pharmacy Electronically, [facility], 152, cm, 08/13/20 7:19:00 [...] tablet, 0 Refills, Maintenance, 08/13/20 11:24:00EDT, Tablet, [facility], 152, cm, 08/13/20 7:19:00 [...] CPAP(Confirmed) Active DMII(Confirmed) Active 1Dr. Tunde Wade [phone], Norma. Dx 06/07/09 Social History Social History Type Response Smoking Status Former smoker, quit more than 30 days ago entered on: 06/11/19 Sex
--- OUTSIDE RECORDS SUMMARY | 2024-04-04 10:13 | XMS_ITS | Continuity of Care Document ---
Author Organization [facility] Address [address] [place] [address]- Care Team Providers Care Manager Operations Research Name Role Phone Allyson ARMSTRONG Hazel Primary Care Physician [facility]): 07/24[facility]23 - 08/23/23 [facility] [address] [place], [place] [address] Allergies, Adverse Reactions, Alerts [...] Reason: Med Not Available 2Result Comment: [10/30/2014] [id number] 3Admin Note: VIS GIVEN DATED: 04/29/12 4Admin Note: vis given 05/23/11 5Admin Note: VIS GIVEN-DATED 06/07/10 6Admin Note: vis give dated 08/03/09 7Admin Note: VIS GIVEN VIS DATE 05/08/06 Medications albuterol 0.083% inhalation solution 3 mL = 2.5 mg, Inhalation, Every 6 hours, # 360 mL, 11 Refills, Maintenance, 07/17/22 11:50:00 EDT,Solution, [facility] #[id number], 152, cm, 07/12/22 13:07:00 EDT, Height, 175.5, [...] 03/31/23 21:58:00 EDT, Route to Pharmacy Electronically, [facility] #[id number], Partial fill upon patient request if the [...] 01/07/25 17:08:00 EDT, Route to Pharmacy Electronically, [facility] #[id number], 149.86, cm, 02/09/23 15:52:00 EDT, Height, 172.3, kg, 11/26/22 5:4... Start Date: 01/07/25 Stop Date: 12/23/27 Status: Ordered furosemide 40 mg oral tablet 40 mg, 1, tablet, By Mouth, 2 times a day, for 90 days, # 180 tablet, Refills 11, Tot. Refills 11, Hard Stop 01/07/25 17:08:00 EDT, 01/23/22 17:08:00 EDT, Route to Pharmacy Electronically, [facility] #[id number], 152, cm, 06/17/21 8:41:00 EDT, He... Start Date: 01/23/22 Stop Date: 01/07/25 Status: Ordered gabapentin 100 mg oral capsule 100 mg, 1, capsule, By Mouth, 3 times a day, # 90 capsule, Refills 0, Tot. Refills 0, Maintenance, 12/14/22 17:21:00 EST, Route to Pharmacy Electronically, [facility] #[id number], Partial fill upon patient request if the prescription is for a kelly... Start Date: 12/14/22 Status: Ordered ibuprofen 800 mg oral tablet 800 mg, 1, tablet, By Mouth, 3 times a day, for pain with food or milk, # 30 tablet, Refills 0, Tot. Refills 0, Maintenance, 02/09/23 17:06:00 EDT, Route to Pharmacy Electronically, [facility] #[id number], Partial fill upon patient request if th... Start Date: 02/09/23 Status: Ordered metFORMIN 1000 mg oral tablet 1 tablet = 1,000 mg, By Mouth, 2 times a day, # 60 tablet, 11 Refills, Maintenance, 07/12/22 13:42:00 EDT, Tablet, [facility] #[id number], cancel previous metformin scripts, 152, cm, 07/12/22 13:07:00 EDT, Height, 175.5, kg, 08/09/20 0:18:00 EDT,... Start Date: 07/12/22 Status: Ordered multivitamin Multiple Vitamins oral capsule 1 capsule, By Mouth, Daily, # 30 capsule, 0 Refills, Maintenance, 03/23/23 7:59:00 EDT, Capsule, [facility] #[id number], Partial fill upon patient request if the [...] 11 Refills, Maintenance, 04/21/22 12:34:00 EDT, Powder, [facility] #[id number], Partial fill upon patient request if the prescription is for a schedule II opioid drug., 1 puffs... Start Date: 04/21/22 Stop Date: 04/16/23 Status: Ordered Vitamin D3 2000 intl units oral capsule 1 capsule = 2,000 International_Units, By Mouth, Daily, # 60 capsule, 2 Refills, Maintenance, 07/17/22 16:56:00 EDT, Capsule, [facility] #[id number], Partial fill upon patient request if the [...] Confirmed Active DMII Confirmed Active 1DrRyder Wade [phone], Norma. Dx 06/07/09 Social History Social History Type Response Smoking Status Former smoker, quit more than 30 days ago entered on: 06/11/19 Sex Patient Care team information Care Team Personnel Name: Becca Crain RN Position: [facility] RN Member Role: Primary Care Nurse Name: Jayna Sandhu RN Position: S RN Member Role: Primary Care Nurse Name: Maty Valencia RN Position: [facility] RN Member Role: Primary Care Nurse Name: Roger Peña RN Position: [facility] RN Supv Member Role: Primary Care Nurse Name: Mihir Jackson RN Position: S RN Member Role: Primary Care Nurse Name: Danya Roman RN Position: [facility] RN Member Role: Primary Care Nurse Name: Ashley Brownlee RN Position: [facility] ED RN W/OE and Tasks Member Role: Primary Care Nurse Name: Elma Caruso (INSTR) Position: [facility] RN Member Role: Primary Care Nurse Name: Amanda Huerta RN Position: [facility] RN Member Role: Primary Care Nurse Name: Yessica Stock Position: [facility] RN Member Role: Primary Care Nurse Name: Hazel Valadez DO Position: [facility] Resident Member Role: PCP Address: Address: [address] [place] [address] Adult [place], [place] [address] Name: Juli Calles RN Position: [facility] RN Member Role: Primary Care Nurse Care Team Related Persons Name: LINDA ZULEIMA Address: [place] [address] Name: LUCITA TEMPLE Address: home Name: LARA TEMPLE Name: JUSTIN HINES
--- OUTSIDE RECORDS SUMMARY | 2024-04-04 10:13 | XMS_ITS | Continuity of Care Document ---
Author Organization [facility] Address [address] [place] [address]- Care Team Providers Care Life Claims Examiner Name Role Phone Joey Steele MD Primary Care Physician [facility]21 - 04/15/21 [facility] [address] [place], [place] [address] Attending Physician: Vannesa Paulino Admitting Physician: Vannesa [...] Reason: Med Not Available 2Result Comment: [10/30/2014] [id number] 3Admin Note: VIS GIVEN DATED: 04/29/12 4Admin Note: vis given 05/23/11 5Admin Note: VIS GIVEN-DATED 06/07/10 6Admin Note: vis give dated 08/03/09 7Admin Note: VIS GIVEN VIS DATE 05/08/06 Medications albuterol 0.083% inhalation solution 3 mL = 2.5 mg, Inhalation, Every 6 hours, # 360 mL, 11 Refills, Maintenance, 08/29/20 20:48:00 EST,Solution, [facility], 152, cm, 08/13/20 13:28:00 [...] 08/29/20 20:48:00 EST, Route to Pharmacy Electronically, [id number]... Start Date: 08/29/20 Stop Date: 08/24/21 Status: Ordered albuterol CFC free 90 mcg/inh inhalation aerosol 2, puffs, Inhalation, 4 times a day, PRN, FOR WHEEZING AND SHORTNESS OF BREATH, # 1 each, Refills 5, Tot. Refills 5, Maintenance, 08/24/21 20:48:00 EDT, Route to Pharmacy Electronically, [id number], [facility] #[id number]... Start Date: 08/24/21 Stop Date: 02/20/22 [...] Refills, Maintenance, 10/14/20 15:08:00 EST, EC Capsule, [facility] #[id number], Partial fill upon patient request if the prescription is fora schedule II opioid drug., 152, cm, 08/13/20 13:28... Start Date: 10/14/20 Status: Ordered furosemide 40 mg oral tablet 40 mg, 1, tablet, By Mouth, 2 times a day, # 60 tablet, Refills 10, Tot. Refills 10, Maintenance, 10/14/20 15:09:00 EST, Route to Pharmacy Electronically, [facility] #[id number], 152, cm, 08/13/20 13:28:00 EDT, Height, 175.5, kg, 08/09/20 0:18:00... Start Date: 10/14/20 Stop Date: 09/09/21 Status: Ordered indomethacin 50 mg oral capsule 1 capsule = 50 mg, By Mouth, 3 times a day, PRN for gout pain, # 15 capsule, 0 Refills, Maintenance, 03/16/21 16:28:00 EDT, Capsule, [facility] #[id number], Partial fill upon patient request if the prescription is for a schedule II opioid drug.,... Start Date: 03/16/21 Stop Date: 03/21/21 Status: Ordered metFORMIN 1000 mg oral tablet 1 tablet = 1,000 mg, By Mouth, 2 times a day, takes once daily for 2 weeks, then increase to BID, #60 tablet, 11 Refills, Maintenance, 10/14/20 15:09:00 EST, Tablet, [facility] #[id number], 152, cm, 08/13/20 13:28:00 EDT, Height, 175.5, kg, 07/29... Start Date: 10/14/20 Status: Ordered morphine 15 mg oral tablet, immediate release 1 tablet = 15 mg, By Mouth, Every 4 hours, PRN as needed for pain, # 10 tablet, 0 Refills, Maintenance, 03/12/21 1:49:00 EDT, Tablet, [facility] #[id number], Partial fill upon patient request, 152, cm, [...] Maintenance, 10/14/20 15:09:00 EST, Tablet, [facility] #[id number], 152, cm, 08/13/20 13:28:00 EDT, Height, 175.5, kg, 08/09/20 0:18:00 EDT, Dry Weight Start Date: 10/14/20 Status: Ordered Vitamin D3 2000 intl units oral capsule 1 capsule = 2,000 International_Units, By Mouth, Daily, # 60 capsule, 2 Refills, Maintenance, 11/02/20 10:14:00 EST, Capsule, [facility] #[id number], Partial fill upon patient request if the [...] home CPAP(Confirmed) Active DMII(Confirmed) Active 1DrRyder Wade [phone]. Dx 06/07/09 Social History Social History Type Response Smoking Status Former smoker, quit more than 30 days ago entered on: 06/11/19 Sex
--- OUTSIDE RECORDS SUMMARY | 2024-04-04 10:13 | XMS_ITS | Continuity of Care Document ---
Author Organization [facility] ter Address [address] [place] [address]- Care Team Providers Care Solar Fabrication Technician Name Role Phone Hazel Valadez DO Primary Care Physician [facility] 07[facility]23 - 09/03/[address] [address] Attending Physician: Thompson STARK, Mae Admitting Physician: Thompson SPECIAL OFFICER, Mae Referring Physician: Thompson SPECIAL OFFICER, Mae Allergies, Adverse Reactions, Alerts Substance Reaction Severity [...] Reason: Med Not Available 2Result Comment: [10/30/2014] [id number] 3Admin Note: VIS GIVEN DATED: 04/29/12 4Admin Note: vis given 05/23/11 5Admin Note: VIS GIVEN-DATED 06/07/10 6Admin Note: vis give dated 08/03/09 7Admin Note: VIS GIVEN VIS DATE 05/08/06 Medications albuterol 0.083% inhalation solution 3 mL = 2.5 mg, Inhalation, Every 6 hours, # 360 mL, 11 Refills, Maintenance, 07/17/22 11:50:00 EDT,Solution, [facility] #[id number], 152, cm, 07/12/22 13:07:00 EDT, Height, 175.5, [...] 03/31/23 21:58:00 EDT, Route to Pharmacy Electronically, [facility] #[id number], Partial fill upon patient request if the [...] 01/07/25 17:08:00 EDT, Route to Pharmacy Electronically, [facility] #[id number], 149.86, cm, 02/09/23 15:52:00 EDT, Height, 172.3, kg, 11/26/22 5:4... Start Date: 01/07/25 Stop Date: 12/23/27 Status: Ordered furosemide 40 mg oral tablet 40 mg, 1, tablet, By Mouth, 2 times a day, for 90 days, # 180 tablet, Refills 11, Tot. Refills 11, Hard Stop 01/07/25 17:08:00 EDT, 01/23/22 17:08:00 EDT, Route to Pharmacy Electronically, [facility] #[id number], 152, cm, 06/17/21 8:41:00 EDT, He... Start Date: 01/23/22 Stop Date: 01/07/25 Status: Ordered gabapentin 100 mg oral capsule 100 mg, 1, capsule, By Mouth, 3 times a day, # 90 capsule, Refills 0, Tot. Refills 0, Maintenance, 12/14/22 17:21:00 EST, Route to Pharmacy Electronically, [facility] #[id number], Partial fill upon patient request if the prescription is for a kelly... Start Date: 12/14/22 Status: Ordered ibuprofen 800 mg oral tablet 800 mg, 1, tablet, By Mouth, 3 times a day, for pain with food or milk, # 30 tablet, Refills 0, Tot. Refills 0, Maintenance, 02/09/23 17:06:00 EDT, Route to Pharmacy Electronically, [facility] #[id number], Partial fill upon patient request if th... Start Date: 02/09/23 Status: Ordered metFORMIN 1000 mg oral tablet 1 tablet = 1,000 mg, By Mouth, 2 times a day, # 60 tablet, 11 Refills, Maintenance, 07/12/22 13:42:00 EDT, Tablet, [facility] #[id number], cancel previous metformin scripts, 152, cm, 07/12/22 13:07:00 EDT, Height, 175.5, kg, 08/09/20 0:18:00 EDT,... Start Date: 07/12/22 Status: Ordered multivitamin Multiple Vitamins oral capsule 1 capsule, By Mouth, Daily, # 30 capsule, 0 Refills, Maintenance, 03/23/23 7:59:00 EDT, Capsule, [facility] #[id number], Partial fill upon patient request if the [...] 11 Refills, Maintenance, 04/21/22 12:34:00 EDT, Powder, [facility] #04009, Partial fill upon patient request if the prescription is for a schedule II opioid drug., 1 puffs... Start Date: 04/21/22 Stop Date: 04/16/23 Status: Ordered Vitamin D3 2000 intl units oral capsule 1 capsule = 2,000 International_Units, By Mouth, Daily, # 60 capsule, 2 Refills, Maintenance, 07/17/22 16:56:00 EDT, Capsule, [facility] #[id number], Partial fill upon patient request if the [...] Confirmed Active DMII Confirmed Active 1DrRyder Wade [phone], Norma. Dx 06/07/09 Social History Social History [...] Care Nurse Name: Mihir Jackson RN Position: [facility] RN Member Role: Primary Care Nurse Name: Abel RNDanya Position: [facility] SN RN Member Role: Primary Care Nurse Name: Ashley Brownlee RN Position: [facility] ED RN W/OE and Tasks Member Role: Primary Care Nurse Name: Elma Caruso (INSTR) Position: [facility] RN Member Role: Primary Care Nurse Name: Amanda Huerta RN Position: [facility] RN Member Role: Primary Care Nurse Name: Yessica Sotck Position: [facility] RN Member Role: Primary Care Nurse Name: aHzel Valadez DO Position: [facility] Resident Member Role: PCP Address: Address: [address] [place] [address] [place] [address]- Name: Juli Calles RN Position: [facility] RN Member Role: Primary Care Nurse Care Team Related Persons Name: ZULEIMA MCKEON Address: [place] [address] Name: LUCITA TEMPLE Address: home Name: LARA TEMPLE Name: JUSTIN HINES
--- OUTSIDE RECORDS SUMMARY | 2024-04-04 10:13 | XMS_ITS | Continuity of Care Document ---
Author Organization [facility] Address [address] [place] [address]- Care Team Providers Care Presentation Specialist Name Role Phone Marta Valadez DOha Primary Care Physician [phone] [facility]counter [facility] Date[facility]s): 07/27/23 - 08/26/23 [facility] [address] [place], [place] [address] Allergies, Adverse Reactions, Alerts Substance Reaction [...] Reason: Med Not Available 2Result Comment: [10/30/2014] [id number] 3Admin Note: VIS GIVEN DATED: 04/29/12 4Admin Note: vis given 05/23/11 5Admin Note: VIS GIVEN-DATED 06/07/10 6Admin Note: vis give dated 08/03/09 7Admin Note: VIS GIVEN VIS DATE 05/08/06 Medications albuterol 0.083% inhalation solution 3 mL = 2.5 mg, Inhalation, Every 6 hours, # 360 mL, 11 Refills, Maintenance, 07/17/22 11:50:00 EDT,Solution, [email or web address] #[id number], 152, cm, 07/12/22 13:07:00 EDT, Height, 175.5, [...] 03/31/23 21:58:00 EDT, Route to Pharmacy Electronically, [email or web address] #[id number], Partial fill upon patient request if the [...] 01/07/25 17:08:00 EDT, Route to Pharmacy Electronically, [email or web address] #[id number], 149.86, cm, 02/09/23 15:52:00 EDT, Height, 172.3, kg, 11/26/22 5:4... Start Date: 01/07/25 Stop Date: 12/23/27 Status: Ordered furosemide 40 mg oral tablet 40 mg, 1, tablet, By Mouth, 2 times a day, for 90 days, # 180 tablet, Refills 11, Tot. Refills 11, Hard Stop 01/07/25 17:08:00 EDT, 01/23/22 17:08:00 EDT, Route to Pharmacy Electronically, [email or web address] #[id number], 152, cm, 06/17/21 8:41:00 EDT, He... Start Date: 01/23/22 Stop Date: 01/07/25 Status: Ordered gabapentin 100 mg oral capsule 100 mg, 1, capsule, By Mouth, 3 times a day, # 90 capsule, Refills 0, Tot. Refills 0, Maintenance, 12/14/22 17:21:00 EST, Route to Pharmacy Electronically, [email or web address] #[id number], Partial fill upon patient request if the prescription is for a kelly... Start Date: 12/14/22 Status: Ordered ibuprofen 800 mg oral tablet 800 mg, 1, tablet, By Mouth, 3 times a day, for pain with food or milk, # 30 tablet, Refills 0, Tot. Refills 0, Maintenance, 02/09/23 17:06:00 EDT, Route to Pharmacy Electronically, [email or web address] #[id number], Partial fill upon patient request if th... Start Date: 02/09/23 Status: Ordered metFORMIN 1000 mg oral tablet 1 tablet = 1,000 mg, By Mouth, 2 times a day, # 60 tablet, 11 Refills, Maintenance, 07/12/22 13:42:00 EDT, Tablet, [facility] #[id number], cancel previous metformin scripts, 152, cm, 07/12/22 13:07:00 EDT, Height, 175.5, kg, 08/09/20 0:18:00 EDT,... Start Date: 07/12/22 Status: Ordered multivitamin Multiple Vitamins oral capsule 1 capsule, By Mouth, Daily, # 30 capsule, 0 Refills, Maintenance, 03/23/23 7:59:00 EDT, Capsule, [email or web address] #[id number], Partial fill upon patient request if the [...] 11 Refills, Maintenance, 04/21/22 12:34:00 EDT, Powder, [email or web address] #[id number], Partial fill upon patient request if the prescription is for a schedule II opioid drug., 1 puffs... Start Date: 04/21/22 Stop Date: 04/16/23 Status: Ordered Vitamin D3 2000 intl units oral capsule 1 capsule = 2,000 International_Units, By Mouth, Daily, # 60 capsule, 2 Refills, Maintenance, 07/17/22 16:56:00 EDT, Capsule, [facility] #[id number], Partial fill upon patient request if the [...] Confirmed Active DMII Confirmed Active 1DrRyder Wade [phone], [place]. Dx 06/07/09 Social History Social History Type Response Smoking Status Former smoker, quit more than 30 days ago entered on: 06/11/19 Sex Patient Care team information Care Team Personnel Name: Becca Crain RN Position: [facility] RN Member Role: Primary Care Nurse Name: Jayna Sandhu RN Position: S RN Member Role: Primary Care Nurse Name: Maty Valencia RN Position: [facility] RN Member Role: Primary Care Nurse Name: Roger Peña RN Position: [facility] RN Supv Member Role: Primary Care Nurse Name: Mihir Jackson RN Position: S RN Member Role: Primary Care Nurse Name: Danya Roman RN Position: [facility] RN Member Role: Primary Care Nurse Name: Ashley Brownlee RN Position: [facility] ED RN W/OE and Tasks Member Role: Primary Care Nurse Name: Elma Caruso (INSTR) Position: [facility] RN Member Role: Primary Care Nurse Name: Amanda Huerta RN Position: [facility] RN Member Role: Primary Care Nurse Name: Yessica Stock Position: [facility] RN Member Role: Primary Care Nurse Name: Hazel Valadez DO Position: [facility] Resident Member Role: PCP Address: Address: [address] [place] [address] Adult [place], [place] [address] Name: Juli Calles RN Position: [facility] RN Member Role: Primary Care Nurse Care Team Related Persons Name: LINDA ZULEIMA Address: [place] [address] Name: LUCITA TEMPLE Address: home Name: LARA TEMPLE Name: JUSTIN HINES
--- OUTSIDE RECORDS SUMMARY | 2024-04-04 10:13 | XMS_ITS | Continuity of Care Document ---
Author Organization [facility] Address [address] [place] [address]- Care Team Providers Care Lieutenant Fire Fighter Name Role Phone Hazel Valadez DO Primary Care Physician Encounter [facility] [place] Date(s): 12/03/22 - 01/02/[address] [address]- Allergies, Adverse Reactions, Alerts Substance Reaction Severity [...] Reason: Med Not Available 2Result Comment: [10/30/2014] [id number] 3Admin Note: VIS GIVEN DATED: 04/29/12 4Admin Note: vis given 05/23/11 5Admin Note: VIS GIVEN-DATED 06/07/10 6Result Comment: in error 7Admin Note: vis give dated 08/03/09 8Admin Note: VIS GIVEN VIS DATE 05/08/06 Medications albuterol 0.083% inhalation solution 3 mL = 2.5 mg, Inhalation, Every 6 hours, # 360 mL, 11 Refills, Maintenance, 07/17/22 11:50:00 EDT,Solution, [facility] #[id number], 152, cm, 07/12/22 13:07:00 EDT, Height, 175.5, [...] mg, By Mouth, Every 12 hours, for 14 days, # 28 tablet, 0 Refills, Acute 01/06/23 11:05:00 EST, 12/23/22 11:05:00 EST, [facility] #[id number], Partial fill upon patient request if the prescription is for a schedule II opioi... Start Date: 12/23/22 Stop Date: 01/06/23 Status: Ordered Freestyle jorden 2 sensors 14 [...] 01/23/22 17:08:00 EDT, Route to Pharmacy Electronically, [facility] #[id number], 152, cm, 06/17/21 8:41:00 EDT, Height, 175.5, kg, 08/09/20 0:18:00... Start Date: 01/23/22 Stop Date: 01/07/25 Status: Ordered gabapentin 100 mg oral capsule 100 mg, 1, capsule, By Mouth, 3 times a day, # 90 capsule, Refills 0, Tot. Refills 0, Maintenance, 12/14/22 17:21:00 EST, Route to Pharmacy Electronically, [facility] #[id number], Partial fill upon patient request if the prescription is for a kelly... Start Date: 12/14/22 Status: Ordered metFORMIN 1000 mg oral tablet 1 tablet = 1,000 mg, By Mouth, 2 times a day, # 60 tablet, 11 Refills, Maintenance, 07/12/22 13:42:00 EDT, Tablet, [facility] #[id number], cancel previous metformin scripts, 152, cm, 07/12/22 13:07:00 EDT, Height, 175.5, kg, 08/09/20 0:18:00 EDT,... Start Date: 07/12/22 Status: Ordered Oxygen Supplies See Instructions, # 1 application, Maintenance, 2L with exertion dx: hypoxia w/ ambulation, 04/18/19 19:42:21 EDT, Compound Start Date: 02/13/19 Status: [...] 11 Refills, Maintenance, 04/21/22 12:34:00 EDT, Powder, [facility] #[id number], Partial fill upon patient request if the prescription is for a schedule II opioid drug., 1 puffs... Start Date: 04/21/22 Stop Date: 04/16/23 Status: Ordered Trulicity Pen 0.75 mg/0.5 mL subcutaneous solution 0.5 mL = 0.75 mg, Subcutaneous Injection, Every week, rotate injection sites, # 2 mL, 3 Refills, Maintenance, 07/12/22 14:01:00 EDT, Solution, [facility] #[id number], Partial fill upon patient request if the prescription is for a schedule II opio... Start Date: 07/12/22 Status: Ordered Vitamin D3 2000 intl units oral capsule 1 capsule = 2,000 International_Units, By Mouth, Daily, # 60 capsule, 2 Refills, Maintenance, 07/17/22 16:56:00 EDT, Capsule, [facility] #[id number], Partial fill upon patient request if the prescription is for a schedule II opioid drug., 152, cm... Start Date: 07/17/22 Status: Ordered Walker See Instructions, # 1 each, Maintenance, Dispense: Heavy Duty wheeled walker with seat and brakes Dx: Morbid obesity, 06/20/21 19:30:00 EDT, Supply Start Date: 8/23/21 Status: Ordered Problem List Condition Confirmation Course [...] Active DMII Confirmed Active 1Dr. Tunde Petcu [phone], [place]. Dx 06/07/09 Social History Social History Type Response Smoking Status Former smoker, quit more than 30 days ago entered on: 06/11/19 Sex Patient Care team information Care Team Personnel Name: Jayna Sandhu RN Position: [facility] RN Member Role: Primary Care Nurse Name: Maty Valencia RN Position: [facility] RN Member Role: Primary Care Nurse Name: Roger Peña RN Position: [facility] RN Supv Member Role: Primary Care Nurse Name: Mihir Jackson RN Position: [facility] RN Member Role: Primary Care Nurse Name: Tessy Jaramillo RN Position: [facility] RN Member Role: Primary Care Nurse Name: Danya Roman RN Position: [facility] AMB Nurse Member Role: Primary Care Nurse Name: Ashley Brownlee RN Position: [facility] ED RN W/OE and Tasks Member Role: Primary Care Nurse Name: Becca Enrique RN Position: [facility] RN Member Role: Primary Care Nurse Name: Elma Caruso (INSTR) Position: [facility] RN Member Role: Primary Care Nurse Name: Amanda Huerta RN Position: [facility] RN Member Role: Primary Care Nurse Name: Yessica Stock Position: [facility] RN Member Role: Primary Care Nurse Name: Hazel Valadez DO Position: [facility] Resident Member Role: PCP Address: Address: [address] [place] [address] [place] [address]- [place] Name: Radha Bravo RN Position: [facility] RN Member Role: Primary Care Nurse Name: Juli Calles RN Position: [facility] RN Member Role: Primary Care Nurse Care Team Related Persons Name: LINDA ZULEIMA Address: [place] [address] Name: LUCITA TEMPLE Address: home Name: LARA TEMPLE Name: JUSTIN HINES
--- OUTSIDE RECORDS SUMMARY | 2024-04-04 10:13 | XMS_ITS | Continuity of Care Document ---
Author Organization [facility] ter Address [address] [place] [address]- Care Team Providers Care Social Security Assessor Name Role Phone Hazel Valadez DO Primary Care Physician [facility]counter [facility] Date(s): 07/17/23 - 09/30/[address] [address] Attending Physician: Devante Marlow Admitting Physician: Devante Marlow Referring Physician: Devante Marlow Allergies, Adverse Reactions, Alerts Substance Reaction Severity [...] Reason: Med Not Available 2Result Comment: [10/30/2014] [id number] 3Admin Note: VIS GIVEN DATED: 04/29/12 4Admin Note: vis given 05/23/11 5Admin Note: VIS GIVEN-DATED 06/07/10 6Admin Note: vis give dated 08/03/09 7Admin Note: VIS GIVEN VIS DATE 05/08/06 Medications Advair Diskus 250 mcg-50 mcg inhalation powder 1, puffs, Inhalation, 2 times a day, # 28 each, Refills 0, Tot. Refills 0, Maintenance, 09/06/23 14:10:00 EST, Powder, Route to Pharmacy Electronically, [id number], [facility] #[id number], 153, cm, 08/19/23 2:04:00 EDT,... Start Date: 09/06/23 Status: Ordered albuterol 0.083% inhalation solution 3 mL = 2.5 mg, Inhalation, Every 6 hours, # 360 mL, 11 Refills, Maintenance, 09/06/23 8:33:00 EST, Solution, [facility] #[id number], 153, cm, 08/19/23 2:04:00 EDT, Height, 171.8, [...] 01/07/25 17:08:00 EDT, Route to Pharmacy Electronically, [facility] #[id number], 149.86, cm, 02/09/23 15:52:00 EDT, Height, 172.3, kg, 11/26/22 5:4... Start Date: 01/07/25 Stop Date: 12/23/27 Status: Ordered gabapentin 100 mg oral capsule 100 mg, 1, capsule, By Mouth, 3 times a day, # 90 capsule, Refills 0, Tot. Refills 0, Maintenance, 12/14/22 17:21:00 EST, Route to Pharmacy Electronically, [facility] #[id number], Partial fill upon patient request if the prescription is for a kelly... Start Date: 12/14/22 Status: Ordered metFORMIN 1000 mg oral tablet 1 tablet = 1,000 mg, By Mouth, 2 times a day, # 60 tablet, 11 Refills, Maintenance, 09/24/23 9:06:00 EST, Tablet, [facility] #[id number], cancel previous metformin scripts, 153, cm, 09/16/23 13:33:00 EST, Height, 176, kg, 09/16/23 13:33:00 EST, D... Start Date: 09/24/23 Status: Ordered multivitamin Multiple Vitamins oral capsule 1 capsule, By Mouth, Daily, # 30 capsule, 0 Refills, Maintenance, 09/06/23 8:33:00 EST, Capsule, [facility] #[id number], Partial fill upon patient request if the [...] 2 Refills, Maintenance, 09/24/23 9:06:00 EST, Capsule, [facility] #[id number], Partial fill upon patient request if the [...] Confirmed Active DMII Confirmed Active 1DrRyder Wade [phone], [place]. Dx 06/07/09 Social History Social History Type Response Smoking Status Former smoker, quit more than 30 days ago entered on: 06/11/19 Sex Patient Care team information Care Team Personnel Name: Becca Crain RN Position: [facility] RN Member Role: Primary Care Nurse Name: Jayna Sandhu RN Position: S RN Member Role: Primary Care Nurse Name: Maty Valencia RN Position: [facility] RN Member Role: Primary Care Nurse Name: Roger Peña RN Position: [facility] RN Supv Member Role: Primary Care Nurse Name: Mihir Jackson RN Position: [facility] RN Member Role: Primary Care Nurse Name: Danya Roman RN Position: [facility] SN RN Member Role: Primary Care Nurse Name: Ashley Brownlee RN Position: [facility] ED RN W/OE and Tasks Member Role: Primary Care Nurse Name: Elma Caruso (INSTR) Position: [facility] RN Member Role: Primary Care Nurse Name: Amanda Huerta RN Position: S RN Member Role: Primary Care Nurse Name: Yessica Stock Position: S RN Member Role: Primary Care Nurse Name: Hazel Valadez DO Position: S Resident Member Role: PCP Address: Address: [address] [place] [address] [place] [address]- Name: Juli Calles RN Position: [facility] RN Member Role: Primary Care Nurse Care Team Related Persons Name: ZULEIMA MCKEON Address: [place] [address] Name: ZAYRA STREETER Address: home [address] [address] Name: LUCITA TEMPLE Address: home Name: LARA TEMPLE Address: home [address] [address] Name: JUSTIN HINES
--- OUTSIDE RECORDS SUMMARY | 2024-04-04 10:13 | XMS_ITS | Continuity of Care Document ---
Author Organization [facility] ter Address [address] [place] [address]- Care Team Providers Care Cooler Servicer Name Role Phone Hazel Valadez DO Primary Care Physician [phone] Encounter [facility] [place] Date(s): 02/20/23 - 02/20/[address] [address]- Discharge Disposition: A-D/C Walkout Attending Physician: Not on Staff, Attending MD [...] influenza virus vaccine, inactivated 5 02/06/11 Gi eriwn influenza virus vaccine, inactivated 10/06/10 Jaciel rded [...] Reason: Med Not Available 2Result Comment: [10/30/2014] [id number] 3Admin Note: VIS GIVEN DATED: 04/29/12 4Admin Note: vis given 05/23/11 5Admin Note: VIS GIVEN-DATED 06/07/10 6Result Comment: in error 7Admin Note: vis give dated 08/03/09 8Admin Note: VIS GIVEN VIS DATE 05/08/06 Medications albuterol 0.083% inhalation solution 3 mL = 2.5 mg, Inhalation, Every 6 hours, # 360 mL, 11 Refills, Maintenance, 07/17/22 11:50:00 EDT,Solution, [facility] #[id number], 152, cm, 07/12/22 13:07:00 EDT, Height, 175.5, [...] 01/23/22 17:08:00 EDT, Route to Pharmacy Electronically, [facility] #[id number], 152, cm, 06/17/21 8:41:00 EDT, Height, 175.5, kg, 08/09/20 0:18:00... Start Date: 01/23/22 Stop Date: 01/07/25 Status: Ordered gabapentin 100 mg oral capsule 100 mg, 1, capsule, By Mouth, 3 times a day, # 90 capsule, Refills 0, Tot. Refills 0, Maintenance, 12/14/22 17:21:00 EST, Route to Pharmacy Electronically, [facility] #[id number], Partial fill upon patient request if the prescription is for a kelly... Start Date: 12/14/22 Status: Ordered ibuprofen 800 mg oral tablet 800 mg, 1, tablet, By Mouth, 3 times a day, for pain with food or milk, # 30 tablet, Refills 0, Tot. Refills 0, Maintenance, 02/09/23 17:06:00 EDT, Route to Pharmacy Electronically, [facility] #[id number], Partial fill upon patient request if th... Start Date: 02/09/23 Status: Ordered lisinopril 5 mg oral tablet 5 mg, 1, tablet, By Mouth, Daily, Need follow up with your pcp, # 30 tablet, Refills 0, Tot. Refills 0, Acute 02/25/23 17:31:00 EDT, 01/25/23 17:31:00 EDT, Route to Pharmacy Electronically, [facility] #[id number], Please disregard 10mg dosing, 14... Start Date: 01/25/23 Stop Date: 02/25/23 Status: Ordered metFORMIN 1000 mg oral tablet 1 tablet = 1,000 mg, By Mouth, 2 times a day, # 60 tablet, 11 Refills, Maintenance, 07/12/22 13:42:00 EDT, Tablet, [facility] #[id number], cancel previous metformin scripts, 152, cm, 07/12/22 [...] 11 Refills, Maintenance, 04/21/22 12:34:00 EDT, Powder, [facility] #[id number], Partial fill upon patient request if the prescription is for a schedule II opioid drug., 1 puffs... Start Date: 04/21/22 Stop Date: 04/16/23 Status: Ordered Trulicity Pen 0.75 mg/0.5 mL subcutaneous solution 0.5 mL = 0.75 mg, Subcutaneous Injection, Every week, rotate injection sites, # 2 mL, 3 Refills, Maintenance, 07/12/22 14:01:00 EDT, Solution, [facility] #[id number], Partial fill upon patient request if the prescription is for a schedule II opio... Start Date: 07/12/22 Status: Ordered Vitamin D3 2000 intl units oral capsule 1 capsule = 2,000 International_Units, By Mouth, Daily, # 60 capsule, 2 Refills, Maintenance, 07/17/22 16:56:00 EDT, Capsule, [facility] #[id number], Partial fill upon patient request if the [...] Confirmed Active DMII Confirmed Active 1DrRyder Wade [phone], [place]. Dx 06/07/09 Vital Signs Most recent to oldest [Reference Range]: 1 Oxygen Saturation [94-100 %] 95 % (02/20/23 3:31 PM) Pulse Rate [55-90 bpm] 70 bpm (02/20/23 3:31 PM) Blood Pressure [90-138/55-84 mm Hg] 122/ 86mm Hg (02/20/23 3:31 PM) Respiratory Rate [16-30 br/min] 18 br/mi n (02/20/23 3:31 PM) Temperature [96.8-100.4 DegF] 98.7 DegF (02/20/23 3:31 PM) Mode of Delivery (Oxygen) Room air (02/20/23 3:31 PM) Social History Social History Type Response Smoking Status Former smoker, quit more than 30 days ago entered on: 06/11/19 Sex Patient Care team information Care Team Personnel Name: Jayna Sandhu RN Position: [facility] RN Member Role: Primary Care Nurse Name: Maty Valencia RN Position: [facility] RN Member Role: Primary Care Nurse Name: Roger Peña RN Position: [facility] RN Supv Member Role: Primary Care Nurse Name: Mihir Jackson RN Position: [facility] RN Member Role: Primary Care Nurse Name: Tessy Jaramillo RN Position: [facility] RN Member Role: Primary Care Nurse Name: Danya Roman RN Position: [facility] SN RN Member Role: Primary Care Nurse Name: Kem RNAshley Position: [facility] ED RN W/OE and Tasks Member Role: Primary Care Nurse Name: Becca Enrique RN Position: [facility] RN Member Role: Primary Care Nurse Name: Elma Caruso (INSTR) Position: [facility] RN Member Role: Primary Care Nurse Name: Amanda Huerta RN Position: [facility] RN Member Role: Primary Care Nurse Name: Yessica Stock Position: [facility] RN Member Role: Primary Care Nurse Name: Hazel Valadez DO Position: [facility] Resident Member Role: PCP Address: Address: [address] [place] [address] Adult [place], [place] [address] Name: Radha Bravo RN Position: [facility] RN Member Role: Primary Care Nurse Name: Juli Calles RN Position: [facility] RN Member Role: Primary Care Nurse Care Team Related Persons Name: LINDA ZULEIMA Address: [place] [address] Name: LUCITA TEMPLE Address: home Name: LARA TEMPLE Name: JUSTIN HINES
--- OUTSIDE RECORDS SUMMARY | 2024-04-04 10:13 | XMS_ITS | Continuity of Care Document ---
Author Organization [facility] Address [address] [place] [address]- Care Team Providers Care Cnc Programmer Name Role Phone Joey Steele MD Primary Care Physician [facility] Date[facility]s): 11/18[facility]21 - 12/18/21 [facility] [address] [place], [place] [address] Allergies, Adverse Reactions, Alerts [...] Reason: Med Not Available 3Result Comment: [10/30/2014] [id number] 4Admin Note: VIS GIVEN DATED: 04/29/12 5Admin [...] 08/24/21 20:48:00 EDT, Route to Pharmacy Electronically, [id number], [facility] #[id number]... Start Date: 08/24/21 Stop Date: 02/20/22 Status: Ordered duloxetine 60 mg oral enteric coated capsule 1 capsule = 60 mg, By Mouth, Daily, # 30 capsule, 10 Refills, Maintenance, 10/14/20 15:08:00 EST, EC Capsule, [facility] #[id number], Partial fill upon patient request if the prescription is fora schedule II opioid drug., 152, cm, 08/13/20 13:28... Start Date: 10/14/20 Status: Ordered furosemide 40 mg oral tablet 40 mg, 1, tablet, By Mouth, 2 times a day, # 180 tablet, Refills 11, Tot. Refills 11, Maintenance, 11/21/21 8:12:00 EST, Route to Pharmacy Electronically, [facility] #[id number], 152, cm, 06/17/21 8:41:00 EDT, Height, 175.5, kg, 08/09/20 0:18:00... Start Date: 11/21/21 Stop Date: 11/05/24 Status: Ordered hydrOXYzine hydrochloride 25 mg oral tablet 1 tablet = 25 mg, By Mouth, 4 times a day, PRN for anxiety, # 40 tablet, 1 Refills, Maintenance, 08/28/21 15:25:00 EDT, Tablet, [facility] #[id number], Partial fill upon patient request if the prescription is for a schedule II opioid drug., 152,... Start Date: 08/28/21 Stop Date: 10/27/21 Status: Ordered meloxicam 15 mg oral tablet 1 tablet = 15 mg, By Mouth, Daily, For knee and back pain, # 30 tablet, 2 Refills, Maintenance, 06/17/21 9:06:00 EDT, [facility] #[id number], Partial fill upon patient request if the prescription is for a schedule II opioid drug., 152, cm... Start Date: 06/17/21 Status: Ordered metFORMIN 1000 mg oral tablet 1 tablet = 1,000 mg, By Mouth, 2 times a day, # 60 tablet, 11 Refills, Maintenance, 06/17/21 9:12:00 EDT, [facility] #[id number], cancel previous metformin scripts, 152, cm, 06/17/21 [...] 10 Refills, Maintenance, 10/14/20 15:09:00 EST, Tablet, [facility] #[id number], 152, cm, 08/13/20 13:28:00 EDT, Height, 175.5, [...] 2 Refills, Maintenance, 11/02/20 10:14:00 EST, Capsule, [facility] #[id number], Partial fill upon patient request if the [...] Active Osteoarthritis(Confirmed) Active DMII(Confirmed) Active 1DrRyder Wade [phone], [place]. Dx 06/07/09 Social History Social History Type Response Smoking Status Former smoker, quit more than 30 days ago entered on: 06/11/19 Sex
--- OUTSIDE RECORDS SUMMARY | 2024-04-04 10:13 | XMS_ITS | Continuity of Care Document ---
Author Organization [facility] Address [address] [place] [address]- Care Team Providers Care Senior Net Software Developer Name Role Phone Hazel Valadez DO Primary Care Physician [phone] Encounter 12/02/22 - 01/30/23 [facility] [address] [place] [address]- Discharge Disposition: GOALS MET Allergies, Adverse Reactions, Alerts Substance Reaction Severity [...] Reason: Med Not Available 2Result Comment: [10/30/2014] [id number] 3Admin Note: VIS GIVEN DATED: 04/29/12 4Admin Note: vis given 05/23/11 5Admin Note: VIS GIVEN-DATED 06/07/10 6Result Comment: in error 7Admin Note: vis give dated 08/03/09 8Admin Note: VIS GIVEN VIS DATE 05/08/06 Medications albuterol 0.083% inhalation solution 3 mL = 2.5 mg, Inhalation, Every 6 hours, # 360 mL, 11 Refills, Maintenance, 07/17/22 11:50:00 EDT,Solution, Float: [facility] #[id number], 152, cm, 07/12/22 13:07:00 EDT, Height, 175.5, [...] 01/23/22 17:08:00 EDT, Route to Pharmacy Electronically, [facility] #[id number], 152, cm, 06/17/21 8:41:00 EDT, Height, 175.5, kg, 08/09/20 0:18:00... Start Date: 01/23/22 Stop Date: 01/07/25 Status: Ordered gabapentin 100 mg oral capsule 100 mg, 1, capsule, By Mouth, 3 times a day, # 90 capsule, Refills 0, Tot. Refills 0, Maintenance, 12/14/22 17:21:00 EST, Route to Pharmacy Electronically, [facility] #[id number], Partial fill upon patient request if the prescription is for a kelly... Start Date: 12/14/22 Status: Ordered lisinopril 5 mg oral tablet 5 mg, 1, tablet, By Mouth, Daily, Need follow up with your pcp, # 30 tablet, Refills 0, Tot. Refills 0, Acute 02/25/23 17:31:00 EDT, 01/25/23 17:31:00 EDT, Route to Pharmacy Electronically, [facility] #[id number], Please disregard 10mg dosing, 14... Start Date: 01/25/23 Stop Date: 02/25/23 Status: Ordered metFORMIN 1000 mg oral tablet 1 tablet = 1,000 mg, By Mouth, 2 times a day, # 60 tablet, 11 Refills, Maintenance, 07/12/22 13:42:00 EDT, Tablet, [facility] #[id number], cancel previous metformin scripts, 152, cm, 07/12/22 [...] 11 Refills, Maintenance, 04/21/22 12:34:00 EDT, Powder, Float: [facility] #[id number], Partial fill upon patient request if the prescription is for a schedule II opioid drug., 1 puffs... Start Date: 04/21/22 Stop Date: 04/16/23 Status: Ordered Trulicity Pen 0.75 mg/0.5 mL subcutaneous solution 0.5 mL = 0.75 mg, Subcutaneous Injection, Every week, rotate injection sites, # 2 mL, 3 Refills, Maintenance, 07/12/22 14:01:00 EDT, Solution, Float: [facility] #[id number], Partial fill upon patient request if the prescription is for a schedule II opio... Start Date: 07/12/22 Status: Ordered Vitamin D3 2000 intl units oral capsule 1 capsule = 2,000 International_Units, By Mouth, Daily, # 60 capsule, 2 Refills, Maintenance, 07/17/22 16:56:00 EDT, Capsule, Float: [facility] #[id number], Partial fill upon patient request if the [...] Active DMII Confirmed Active 1Dr. Tunde Petcu [phone], [place]. Dx 06/07/09 Social History Social History Type Response Smoking Status Former smoker, quit more than 30 days ago entered on: 06/11/19 Sex Patient Care team information Care Team Personnel Name: Jayna Sandhu RN Position: [facility] RN Member Role: Primary Care Nurse Name: Maty Valencia RN Position: [facility] RN Member Role: Primary Care Nurse Name: Roger Peña RN Position: [facility] RN Supv Member Role: Primary Care Nurse Name: Mihir Jackson RN Position: [facility] RN Member Role: Primary Care Nurse Name: Tessy Jaramillo RN Position: [facility] RN Member Role: Primary Care Nurse Name: Danya Roman RN Position: [facility] SN RN Member Role: Primary Care Nurse Name: Ashley Brownlee RN Position: [facility] ED RN W/OE and Tasks Member Role: Primary Care Nurse Name: Becca Enrique RN Position: [facility] RN [...] CENTER Resident Member Role: PCP Address: Address: [address] [place] [address] [place] [address]- Name: Radha Bravo RN Position: S RN Member Role: Primary Care Nurse Name: Juli Calles RN Position: [facility] RN Member Role: Primary Care Nurse Care Team Related Persons Name: ZULEIMA MCKEON Address: [place] [address] Name: LUCITA TEMPLE Address: home Name: LARA TEMPLE Name: JUSTIN HINES
--- OUTSIDE RECORDS SUMMARY | 2024-04-04 10:13 | XMS_ITS | Continuity of Care Document ---
Author Organization [facility] Address [address] [place] [address]- Care Team Providers Care Bulk Filler Name Role Phone Joey Steele MD Primary Care Physician [facility] - 04/10/21 [facility] [address] [place], [place] [address] Allergies, Adverse Reactions, Alerts Substance Reaction [...] Reason: Med Not Available 2Result Comment: [10/30/2014] [id number] 3Admin Note: VIS GIVEN DATED: 04/29/12 4Admin Note: vis given 05/23/11 5Admin Note: VIS GIVEN-DATED 06/07/10 6Admin Note: vis give dated 08/03/09 7Admin Note: VIS GIVEN VIS DATE 05/08/06 Medications albuterol 0.083% inhalation solution 3 mL = 2.5 mg, Inhalation, Every 6 hours, # 360 mL, 11 Refills, Maintenance, 08/29/20 20:48:00 EST,Solution, [facility], 152, cm, 08/13/20 13:28:00 [...] 08/29/20 20:48:00 EST, Route to Pharmacy Electronically, [id number]... Start Date: 08/29/20 Stop Date: 08/24/21 Status: Ordered albuterol CFC free 90 mcg/inh inhalation aerosol 2, puffs, Inhalation, 4 times a day, PRN, FOR WHEEZING AND SHORTNESS OF BREATH, # 1 each, Refills 5, Tot. Refills 5, Maintenance, 08/24/21 20:48:00 EDT, Route to Pharmacy Electronically, [id number], [facility] #[id number]... Start Date: 08/24/21 Stop Date: 02/20/22 [...] Refills, Maintenance, 10/14/20 15:08:00 EST, EC Capsule, [facility] #[id number], Partial fill upon patient request if the prescription is fora schedule II opioid drug., 152, cm, 08/13/20 13:28... Start Date: 10/14/20 Status: Ordered furosemide 40 mg oral tablet 40 mg, 1, tablet, By Mouth, 2 times a day, # 60 tablet, Refills 10, Tot. Refills 10, Maintenance, 10/14/20 15:09:00 EST, Route to Pharmacy Electronically, [facility] #[id number], 152, cm, 08/13/20 13:28:00 EDT, Height, 175.5, kg, 08/09/20 0:18:00... Start Date: 10/14/20 Stop Date: 09/09/21 Status: Ordered indomethacin 50 mg oral capsule 1 capsule = 50 mg, By Mouth, 3 times a day, PRN for gout pain, # 15 capsule, 0 Refills, Maintenance, 03/16/21 16:28:00 EDT, Capsule, [facility] #[id number], Partial fill upon patient request if the prescription is for a schedule II opioid drug.,... Start Date: 03/16/21 Stop Date: 03/21/21 Status: Ordered metFORMIN 1000 mg oral tablet 1 tablet = 1,000 mg, By Mouth, 2 times a day, takes once daily for 2 weeks, then increase to BID, #60 tablet, 11 Refills, Maintenance, 10/14/20 15:09:00 EST, Tablet, [facility] #[id number], 152, cm, 08/13/20 13:28:00 EDT, Height, 175.5, kg, 07/29... Start Date: 10/14/20 Status: Ordered morphine 15 mg oral tablet, immediate release 1 tablet = 15 mg, By Mouth, Every 4 hours, PRN as needed for pain, # 10 tablet, 0 Refills, Maintenance, 03/12/21 1:49:00 EDT, Tablet, [facility] #[id number], Partial fill upon patient request, 152, cm, [...] 10 Refills, Maintenance, 10/14/20 15:09:00 EST, Tablet, [facility] #[id number], 152, cm, 08/13/20 13:28:00 EDT, Height, 175.5, kg, 08/09/20 0:18:00 EDT, Dry Weight Start Date: 10/14/20 Status: Ordered Vitamin D3 2000 intl units oral capsule 1 capsule = 2,000 International_Units, By Mouth, Daily, # 60 capsule, 2 Refills, Maintenance, 11/02/20 10:14:00 EST, Capsule, [facility] #[id number], Partial fill upon patient request if the [...] home CPAP(Confirmed) Active DMII(Confirmed) Active 1DrRyder Wade [phone], [place]. Dx 06/07/09 Social History Social History Type Response Smoking Status Former smoker, quit more than 30 days ago entered on: 06/11/19 Sex
--- OUTSIDE RECORDS SUMMARY | 2024-04-04 10:13 | XMS_ITS | Continuity of Care Document ---
Author Organization [facility] Address [address] [place] [address]- Care Team Providers Care Mail Processing Machine Operator Name Role Phone Valadez DO Hazel Primary Care Physician [facility] 09[facility]22 - 10/01/22 [facility] [address] [place] [address]- Attending Physician: Not on Staff, Attending MD [...] Reason: Med Not Available 3Result Comment: [10/30/2014] [id number] 4Admin Note: VIS GIVEN DATED: 04/29/12 5Admin Note: vis given 05/23/11 6Admin Note: VIS GIVEN-DATED 06/07/10 7Admin Note: vis give dated 08/03/09 8Admin Note: VIS GIVEN VIS DATE 05/08/06 Medications albuterol 0.083% inhalation solution 3 mL = 2.5 mg, Inhalation, Every 6 hours, # 360 mL, 11 Refills, Maintenance, 07/17/22 11:50:00 EDT,Solution, [facility] #[id number], 152, cm, 07/12/22 13:07:00 EDT, Height, 175.5, [...] 01/23/22 17:08:00 EDT, Route to Pharmacy Electronically, [facility] #[id number], 152, cm, 06/17/21 8:41:00 EDT, Height, 175.5, kg, 08/09/20 0:18:00... Start Date: 01/23/22 Stop Date: 01/07/25 Status: Ordered gabapentin 100 mg oral capsule 100 mg, 1, capsule, By Mouth, 3 times a day, # 90 capsule, Refills 0, Tot. Refills 0, Maintenance, 07/12/22 14:00:00 EDT, Route to Pharmacy Electronically, [facility] #[id number], Partial fill upon patient request if the prescription is for a kelly... Start Date: 07/12/22 Status: Ordered lisinopril 5 mg oral tablet 5 mg, 1, tablet, By Mouth, Daily, # 30 tablet, Refills 2, Tot. Refills 2, Maintenance, 07/17/22 17:03:00 EDT, Route to Pharmacy Electronically, [facility] #[id number], Please disregard 10mg dosing, 152, cm, 07/12/22 13:07:00 EDT, Height, 175.5, k... Start Date: 07/17/22 Status: Ordered metFORMIN 1000 mg oral tablet 1 tablet = 1,000 mg, By Mouth, 2 times a day, # 60 tablet, 11 Refills, Maintenance, 07/12/22 13:42:00 EDT, Tablet, [facility] #[id number], cancel previous metformin scripts, 152, cm, 07/12/22 [...] 09/01/22 15:06:00 EDT, Route to Pharmacy Electronically, [facility] #[id number], Partial... Start Date: 09/01/22 Status: Ordered rolling [...] 11 Refills, Maintenance, 04/21/22 12:34:00 EDT, Powder, [facility] #[id number], Partial fill upon patient request if the prescription is for a schedule II opioid drug., 1 puffs... Start Date: 04/21/22 Stop Date: 04/16/23 Status: Ordered Trulicity Pen 0.75 mg/0.5 mL subcutaneous solution 0.5 mL = 0.75 mg, Subcutaneous Injection, Every week, rotate injection sites, # 2 mL, 3 Refills, Maintenance, 07/12/22 14:01:00 EDT, Solution, [facility] #[id number], Partial fill upon patient request if the prescription is for a schedule II opio... Start Date: 07/12/22 Status: Ordered Vitamin D3 2000 intl units oral capsule 1 capsule = 2,000 International_Units, By Mouth, Daily, # 60 capsule, 2 Refills, Maintenance, 07/17/22 16:56:00 EDT, Capsule, [facility] #[id number], Partial fill upon patient request if the [...] Active DMII Confirmed Active 1Dr. Tunde Petlucia [phone], [place]. Dx 06/07/09 Social History Social History Type Response Smoking Status Former smoker, quit more than 30 days ago entered on: 06/11/19 Sex Patient Care team information Care Team Personnel Name: Maty Valencia RN Position: [facility] RN Member Role: Primary Care Nurse Name: Danya Roman RN Position: [facility] AMB Nurse Member Role: Primary Care Nurse Name: Ashley Brownlee RN Position: [facility] ED RN W/OE and Tasks Member Role: Primary Care Nurse Name: Becca Enrique RN Position: [facility] RN Member Role: Primary Care Nurse Name: Elma Caruso (INSTR) Position: [facility] RN Member Role: Primary Care Nurse Name: Amanda Huerta RN Position: [facility] RN Member Role: Primary Care Nurse Name: Hazel Valadez DO Position: [facility] Resident Member Role: PCP Address: Address: [address] [place] [address] [place] [address]- Name: Juli Calles RN Position: [facility] RN Member Role: Primary Care Nurse Care Team Related Persons Name: ZULEIMA MCKEON Address: [place] [address] Name: LUCITA TEMPLE Address: home [address] [place] [address] Name: LARA TEMPLE Address: home [address] [place] [address] Name: JUSTIN HINES
--- OUTSIDE RECORDS SUMMARY | 2024-04-04 10:13 | XMS_ITS | Continuity of Care Document ---
Author Organization [facility] Address [address] [place] [address]- Care Team Providers Care Technical Services Representative Name Role Phone Hazel Valadez DO Primary Care Physician [phone] [facility]counter [facility]): 01/26/23 - 02/25/23 [facility] [address] [place], [place] [address] Allergies, Adverse Reactions, Alerts Substance [...] influenza virus vaccine, inactivated 5 02/06/11 Gi erwni influenza virus vaccine, inactivated 10/06/10 Jaciel rded [...] Reason: Med Not Available 2Result Comment: [10/30/2014] [id number] 3Admin Note: VIS GIVEN DATED: 04/29/12 4Admin Note: vis given 05/23/11 5Admin Note: VIS GIVEN-DATED 06/07/10 6Result Comment: in error 7Admin Note: vis give dated 08/03/09 8Admin Note: VIS GIVEN VIS DATE 05/08/06 Medications albuterol 0.083% inhalation solution 3 mL = 2.5 mg, Inhalation, Every 6 hours, # 360 mL, 11 Refills, Maintenance, 07/17/22 11:50:00 EDT,Solution, [facility] #[id number], 152, cm, 07/12/22 13:07:00 EDT, Height, 175.5, [...] 01/23/22 17:08:00 EDT, Route to Pharmacy Electronically, [facility] #[id number], 152, cm, 06/17/21 8:41:00 EDT, Height, 175.5, kg, 08/09/20 0:18:00... Start Date: 01/23/22 Stop Date: 01/07/25 Status: Ordered gabapentin 100 mg oral capsule 100 mg, 1, capsule, By Mouth, 3 times a day, # 90 capsule, Refills 0, Tot. Refills 0, Maintenance, 12/14/22 17:21:00 EST, Route to Pharmacy Electronically, [facility] #[id number], Partial fill upon patient request if the prescription is for a kelly... Start Date: 12/14/22 Status: Ordered ibuprofen 800 mg oral tablet 800 mg, 1, tablet, By Mouth, 3 times a day, for pain with food or milk, # 30 tablet, Refills 0, Tot. Refills 0, Maintenance, 02/09/23 17:06:00 EDT, Route to Pharmacy Electronically, [facility] #[id number], Partial fill upon patient request if th... Start Date: 02/09/23 Status: Ordered metFORMIN 1000 mg oral tablet 1 tablet = 1,000 mg, By Mouth, 2 times a day, # 60 tablet, 11 Refills, Maintenance, 07/12/22 13:42:00 EDT, Tablet, [facility] #[id number], cancel previous metformin scripts, 152, cm, 07/12/22 [...] 11 Refills, Maintenance, 04/21/22 12:34:00 EDT, Powder, [facility] #[id number], Partial fill upon patient request if the prescription is for a schedule II opioid drug., 1 puffs... Start Date: 04/21/22 Stop Date: 04/16/23 Status: Ordered Trulicity Pen 0.75 mg/0.5 mL subcutaneous solution 0.5 mL = 0.75 mg, Subcutaneous Injection, Every week, rotate injection sites, # 2 mL, 3 Refills, Maintenance, 07/12/22 14:01:00 EDT, Solution, [facility] #[id number], Partial fill upon patient request if the prescription is for a schedule II opio... Start Date: 07/12/22 Status: Ordered Vitamin D3 2000 intl units oral capsule 1 capsule = 2,000 International_Units, By Mouth, Daily, # 60 capsule, 2 Refills, Maintenance, 07/17/22 16:56:00 EDT, Capsule, [facility] #38247, Partial fill upon patient request if the [...] Active DMII Confirmed Active 1Dr. Tunde Doylecu [phone], [place]. Dx 06/07/09 Social History Social History Type [...] Danya Roman RN Position: [facility] SN RN Member Role: Primary [...] S Resident Member Role: PCP Address: Address: [address] [place] [address] [place] [address]- Name: Radha Bravo RN Position: S RN Member Role: Primary Care Nurse Name: Juli Calles RN Position: S RN Member Role: Primary Care Nurse Care Team Related Persons Name: LINDA ZULEIMA Address: [place] [address] Name: LUCITA TEMPLE Address: home Name: LARA TEMPLE Name: JUSTIN HINES
--- OUTSIDE RECORDS SUMMARY | 2024-04-04 10:13 | XMS_ITS | Continuity of Care Document ---
Author Organization [facility] Address [address] [place] [address]- Care Team Providers Care Africana Studies Professor Name Role Phone Joey Steele MD Primary Care Physician [phone] [facility] 03[facility]20 - 04/10/20 [facility] [address] [place] [address] Attending Physician: Vannesa Paulino Admitting Physician: Vannesa [...] (DT) 6 06/15/09 Given 1Result Comment: [10/30/2014] [id number] 2Admin Note: VIS GIVEN DATED: 04/29/12 3Admin [...] 11/22/18 12:58:17 EST, Route to Pharmacy Electronically, [id number], [facility] Start Date: 11/22/18 Stop Date: 11/17/19 [...] 1 Refills, Maintenance, 03/11/20 8:43:00 EDT, Tablet, [facility] #[id number], 150, cm, 07/31/19 11:34:00 EDT, Height, 178.4, [...] CPAP(Confirmed) Active DMII(Confirmed) Active 1Dr. Tunde Wade [phone], [place]. Dx 06/07/09 Social History Social History Type Response Smoking Status Former smoker, quit more than 30 days ago entered on: 06/11/19 Sex
--- OUTSIDE RECORDS SUMMARY | 2024-04-04 10:13 | XMS_ITS | Continuity of Care Document ---
Author Organization [facility] Address [address] [place] [address]- Care Team Providers Care Territory Outside Sales Manager Name Role Phone Hazel Valadez DO Primary Care Physician [place] [facility] [place] 02/06[place]24 - 03/07/24 [facility] [address] [place], [place] [phone] Allergies, Adverse Reactions, Alerts Substance Reaction Severity [...] Reason: Med Not Available 2Result Comment: [10/30/2014] [id number] 3Admin Note: VIS GIVEN DATED: 04/29/12 4Admin Note: vis given 05/23/11 5Admin Note: VIS GIVEN-DATED 06/07/10 6Admin Note: vis give dated 08/03/09 7Admin Note: VIS GIVEN VIS DATE 05/08/06 Medications Advair Diskus 250 mcg-50 mcg inhalation powder 1, puffs, Inhalation, 2 times a day, # 28 each, Refills 0, Tot. Refills 0, Maintenance, 09/06/23 14:10:00 EST, Powder, Route to Pharmacy Electronically, [id number], [facility] #[id number], 153, cm, 08/19/23 2:04:00 EDT,... Start Date: 09/06/23 Status: Ordered albuterol 0.083% inhalation solution 3 mL = 2.5 mg, Inhalation, Every 6 hours, # 360 mL, 11 Refills, Maintenance, 09/06/23 8:33:00 EST, Solution, [facility] #[id number], 153, cm, 08/19/23 2:04:00 EDT, Height, 171.8, [...] 12/23/27 17:08:00 EST, Route to Pharmacy Electronically, [facility] #[id number], 153, cm, 12/03/23 14:50:00 EST, Height, 176, kg, 09/16/23 13:33:00 E... Start Date: 12/23/27 Stop Date: 12/07/30 Status: Ordered gabapentin 300 mg oral capsule 300 mg, 1, capsule, By Mouth, 2 times a day, for back pain, # 60 capsule, Refills 5, Tot. Refills 5, Maintenance, 01/24/24 14:15:00 EDT, Route to Pharmacy Electronically, [facility] #[id number],Partial fill upon patient request if the prescripti... Start Date: 01/24/24 Status: Ordered ibuprofen 800 mg oral tablet 800 mg, 1, tablet, By Mouth, 3 times a day, prn pain, take with food, # 45 tablet, Refills 0, Tot. Refills 0, Maintenance, 02/26/24 17:01:00 EDT, Route to Pharmacy Electronically, [facility], Partial fill upon patient request if the pres... Start Date: 02/26/24 Status: Ordered Insulin Glargine Prefilled Pen 100 units/mL subcutaneous solution = 20 units, Subcutaneous Injection, Daily at bedtime, # 15 mL, 0 Refills, Maintenance, 02/22/24 10:15:00 EDT, [facility], Partial fill upon patient request if the prescription is for a schedule II opioid drug., 153, cm, 01/24/24 13:42:00... Start Date: 02/22/24 Status: Ordered multivitamin Multiple Vitamins oral capsule 1 capsule, By Mouth, Daily, # 30 capsule, 0 Refills, Maintenance, 02/26/24 17:01:00 EDT, Capsule, [facility], Partial fill upon patient [...] Compound Start Date: 07/24/23 Status: Ordered Pen [place], 32 G x 4 mm BD Ultra [...] 2 Refills, Maintenance, 02/26/24 17:01:00 EDT, Capsule, [facility], Partial fill upon patient [...] Confirmed Active DMII Confirmed Active 1DrRyder Wade [phone], [place]. Dx 06/07/09 Social History Social History Type Response Smoking Status Former smoker, quit more than 30 days ago entered on: 06/11/19 Sex Patient Care team information Care Team Personnel Name: Becca Crain RN Position: S RN Member Role: Primary Care Nurse Name: Opal Renteria RN Position: S RN Member Role: Primary Care Nurse Name: Jayna Sandhu RN Position: S RN Member Role: Primary Care Nurse Name: Maty Valencia RN Position: S RN Member Role: Primary Care Nurse Name: Christiano Rosenbaum RN Position: [facility] RN Member Role: Primary Care Nurse Name: Hema Lyn RN Position: [facility] RN Member Role: Primary Care Nurse Name: Roger Peña RN Position: [facility] RN Supv Member Role: Primary Care Nurse Name: Hira Black RN Position: [facility] RN Member Role: Primary Care Nurse Name: Mihir Jackson RN Position: [facility] RN Member Role: Primary Care Nurse Name: Danya Roman RN Position: [facility] SN RN Member Role: Primary Care Nurse Name: Kem RNAshley Position: [facility] ED RN W/OE and Tasks Member Role: Primary Care Nurse Name: Zuly (BAHMAN) Elma Position: [facility] RN Member Role: Primary Care Nurse Name: Sowmya Hooks LPN Position: [facility] RN Member Role: Primary Care Nurse Name: Amanda Huerta RN Position: [facility] RN Member Role: Primary Care Nurse Name: Yessica Stock RN Position: [facility] RN Member Role: Primary Care Nurse Name: Hazel Valadez DO Position: [facility] Resident Member Role: PCP Address: Address: [address] [place] [address] Name: Lizzette Barrientos RN Position: [facility] RN Member Role: Primary Care Nurse Name: Nathanael Lawrence RN Position: [facility] RN Member Role: Primary Care Nurse Name: Zoe Falcon RN Position: [facility] RN Member Role: Primary Care Nurse Name: Jayna Escamilla RN Position: [facility] RN Member Role: Primary Care Nurse Name: Juli Calles RN Position: [facility] RN Member Role: Primary Care Nurse Name: Tahmina Choi Position: [facility] RN Member Role: Primary Care Nurse Name: Magdi Gutierrez RN Position: [facility] RN Member Role: Primary Care Nurse Care Team Related Persons Name: ZULEIMA MCKEON Address: [place] [address] Name: ZAYRA STREETER Address: home [address] [address] Name: LUCITA TEMPLE Address: home Name: WINDY LARA Address: [address] [facility] [address] [address] [place] [address] Name: JUSTIN HINES
--- OUTSIDE RECORDS SUMMARY | 2024-04-04 10:13 | XMS_ITS | Continuity of Care Document ---
Author Organization [facility] Address [address] [place] [address]- Care Team Providers Care Stringed Instrument Assembler Name Role Phone Hazel Valadez DO Primary Care Physician [phone] Encounter [facility] Date(s): 01/24/24 - 02/23/24 [facility] [address] [place] [address]- Attending Physician: Vannesa Paulino Admitting Physician: Vannesa [...] Reason: Med Not Available 2Result Comment: [10/30/2014] [id number] Note: VIS GIVEN DATED: 04/29/12 4Admin Note: vis given 05/23/11 5Admin Note: VIS GIVEN-DATED 06/07/10 6Admin Note: vis give dated 08/03/09 7Admin Note: VIS GIVEN VIS DATE 05/08/06 Medications Advair Diskus 250 mcg-50 mcg inhalation powder 1, puffs, Inhalation, 2 times a day, # 28 each, Refills 0, Tot. Refills 0, Maintenance, 09/06/23 14:10:00 EST, Powder, Route to Pharmacy Electronically, [id number], [facility] #[id number], 153, cm, 08/19/23 2:04:00 EDT,... Start Date: 09/06/23 Status: Ordered albuterol 0.083% inhalation solution 3 mL = 2.5 mg, Inhalation, Every 6 hours, # 360 mL, 11 Refills, Maintenance, 09/06/23 8:33:00 EST, Solution, [facility] #[id number], 153, cm, 08/19/23 2:04:00 EDT, Height, 171.8, [...] 12/23/27 17:08:00 EST, Route to Pharmacy Electronically, [facility] #[id number], 153, cm, 12/03/23 14:50:00 EST, Height, 176, kg, 09/16/23 13:33:00 E... Start Date: 12/23/27 Stop Date: 12/07/30 Status: Ordered gabapentin 300 mg oral capsule 300 mg, 1, capsule, By Mouth, 2 times a day, for back pain, # 60 capsule, Refills 5, Tot. Refills 5, Maintenance, 01/24/24 14:15:00 EDT, Route to Pharmacy Electronically, [facility] #[id number],Partial fill upon patient request if the prescripti... Start Date: 01/24/24 Status: Ordered ibuprofen 800 mg oral tablet 800 mg, 1, tablet, By Mouth, 3 times a day, prn pain, take with food, # 45 tablet, Refills 0, Tot. Refills 0, Maintenance, 01/18/24 10:01:00 EDT, Route to Pharmacy Electronically, [facility] #[id number], Partial fill upon patient request if the p... Start Date: 01/18/24 Status: Ordered Insulin Glargine Prefilled Pen 100 units/mL subcutaneous solution = 20 units, Subcutaneous Injection, Daily at bedtime, # 15 mL, 0 Refills, Maintenance, 02/22/24 10:15:00 EDT, [facility], Partial fill upon patient request if the prescription is for a schedule II opioid drug., 153, cm, 01/24/24 13:42:00... Start Date: 02/22/24 Status: Ordered multivitamin Multiple Vitamins oral capsule 1 capsule, By Mouth, Daily, # 30 capsule, 0 Refills, Maintenance, 09/06/23 8:33:00 EST, Capsule, [facility] #[id number], Partial fill upon patient request if the [...] Compound Start Date: 07/24/23 Status: Ordered Pen Huslia, 32 G x 4 mm BD Ultra [...] 2 Refills, Maintenance, 09/24/23 9:06:00 EST, Capsule, [facility] #[id number], Partial fill upon patient request if the [...] Confirmed Active DMII Confirmed Active 1DrRyder Wade [phone], Norma. Dx 06/07/09 Social History Social History Type Response Smoking Status Former smoker, quit more than 30 days ago entered on: 06/11/19 Sex Cardiology * Event Display: Cardiology Office Note, Non-BH Authored Date: * Event Display: Cardiology Office Note, Non-BH Authored Date: Note * Philipp Hutton: PERFORM, SIGN, VERIFY Event Display: Patient Education/Instruction Authored Date: [id number] [facility] Clinical Summary Person Information Name ZULEIMA [...] primary care provider, you may find a [facility] provider by calling [facility] at [phone]. Patient Education Information Follow-up Details: With: Address: When: María Albrecht MD [address] [place] [address] [phone] phone, fixed, business (1) Within 1 month Comments: WEIGHT MANAGMENT Patient Education Material: Patient Care team information Care Team Personnel Name: Becca Crain RN Position: [facility] RN Member Role: Primary Care Nurse Name: Opal Renteria RN Position: [facility] RN Member Role: Primary Care Nurse Name: Jayna Sandhu RN Position: [facility] RN Member Role: Primary Care Nurse Name: Maty Valencia RN Position: [facility] RN Member Role: Primary Care Nurse Name: Christiano Rosenbaum RN Position: [facility] RN Member Role: Primary Care Nurse Name: Hema Lyn RN Position: [facility] RN Member Role: Primary Care Nurse Name: Roger Peña RN Position: [facility] RN Supv Member Role: Primary Care Nurse Name: Hira Black RN Position: [facility] RN Member Role: Primary Care Nurse Name: Mihir Jackson RN Position: [facility] RN Member Role: Primary Care Nurse Name: Danya Roman RN Position: [facility] RN Member Role: Primary Care Nurse Name: Ashley Brownlee RN Position: [facility] ROCHELLE RN W/OE and Tasks Member Role: Primary Care Nurse Name: Elma Caruso (INSTR) Position: S RN Member Role: Primary Care Nurse Name: Sowmya Hooks LPN Position: [facility] RN Member Role: Primary Care Nurse Name: Amanda Huerta RN Position: S RN Member Role: Primary Care Nurse Name: Yessica Stock RN Position: [facility] RN Member Role: Primary Care Nurse Name: Hazel Valadez DO Position: [facility] Resident Member Role: PCP Address: Address: [address] [place] [address] [place], [place] [address] Name: Lizzette Barrientos RN Position: [facility] RN Member Role: Primary Care Nurse Name: Nathanael Lawrence RN Position: S RN Member Role: Primary Care Nurse Name: Zoe Falcon RN Position: [facility] RN Member Role: Primary Care Nurse Name: Jayna Escamilla RN Position: [facility] RN Member Role: Primary Care Nurse Name: Juli Calles RN Position: [facility] RN Member Role: Primary Care Nurse Name: Tahmina Choi Position: [facility] RN Member Role: Primary Care Nurse Name: Magdi Gutierrez RN Position: [facility] RN Member Role: Primary Care Nurse Care Team Related Persons Name: ZULEIMA MCKEON Address: [place] [address] Name: ZAYRA STREETER Address: home [address] [place] [address] Name: LUCITA TEMPLE Address: home Name: LARA TEMPLE Address: home [address] [place] [address] Name: JUSTIN HINES
--- OUTSIDE RECORDS SUMMARY | 2024-04-04 10:14 | XMS_ITS | Continuity of Care Document ---
Author Organization [facility] Address [address] [place] [address]- Care Team Providers Care Catering Barista Name Role Phone Hazel Valadez DO Primary Care Physician Encounter [facility] Date(s): 02/13/24 - 03/14/24 [facility] [address] [place], [place] [phone] Allergies, Adverse Reactions, Alerts Substance Reaction Severity [...] Reason: Med Not Available 2Result Comment: [10/30/2014] [id number] 3Admin Note: VIS GIVEN DATED: 04/29/12 4Admin Note: vis given 05/23/11 5Admin Note: VIS GIVEN-DATED 06/07/10 6Admin Note: vis give dated 08/03/09 7Admin Note: VIS GIVEN VIS DATE 05/08/06 Medications albuterol 0.083% inhalation solution 3 mL = 2.5 mg, Inhalation, Every 6 hours, # 360 mL, 11 Refills, Maintenance, 03/13/24 16:03:00 EDT,Solution, [facility] #[id number], 153, cm, 03/13/24 15:29:00 EDT, Height, 176, [...] 16:05:00 EDT, Aerosol, Route to Pharmacy Electronically, [id number], [facility] #[id number], 153, cm, 03/13/24 15:29:00 EDT... Start Date: 03/13/24 Status: Ordered diclofenac 1% topical gel 1 application, Topically, 4 times a day, # 100 Gm, 3 Refills, Maintenance, 03/13/24 16:13:00 EDT, Gel, [facility] #[id number], Partial fill upon patient request if the [...] 12/23/27 17:08:00 EST, Route to Pharmacy Electronically, [facility] #[id number], 153, cm, 12/03/23 14:50:00 EST, Height, 176, kg, 09/16/23 13:33:00 E... Start Date: 12/23/27 Stop Date: 12/07/30 Status: Ordered gabapentin 300 mg oral capsule 300 mg, 1, capsule, By Mouth, 2 times a day, for back pain, # 60 capsule, Refills 5, Tot. Refills 5, Maintenance, 01/24/24 14:15:00 EDT, Route to Pharmacy Electronically, [facility] #[id number],Partial fill upon patient request if the prescripti... Start Date: 01/24/24 Status: Ordered ibuprofen 800 mg oral tablet 800 mg, 1, tablet, By Mouth, Every 8 hours, prn pain, take with food, # 45 tablet, Refills 1, Tot. Refills 1, Maintenance, 03/13/24 16:11:00 EDT, Route to Pharmacy Electronically, [facility] #[id number], Partial fill upon patient request if the p... Start Date: 03/13/24 Status: Ordered Insulin Glargine Prefilled Pen 100 units/mL subcutaneous solution = 20 units, Subcutaneous Injection, Daily at bedtime, # 15 mL, 3 Refills, Maintenance, 03/13/24 16:06:00 EDT, [facility] #[id number], Partial fill upon patient request if the prescription is fora schedule II opioid drug., 153, cm, 03/13/24 15:29... Start Date: 03/13/24 Status: Ordered multivitamin Multiple Vitamins oral capsule 1 capsule, By Mouth, Daily, # 30 capsule, 0 Refills, Maintenance, 02/26/24 17:01:00 EDT, Capsule, [facility], Partial fill upon patient request if the prescription is for a schedule II opioid drug., 1 capsule By Mouth Daily, 153, cm, 03... Start Date: 02/26/24 Status: Ordered Oxygen Supplies See Instructions, # 1 each, Refills 11, Tot. Refills 11, Maintenance, 2-3 L VIA NASAL CANNULA USE NIGHTLY WITH CPAP RESPIRATORY FAILURE HYPOXIA REBEL G47.33 R09.02, 07/24/23 13:12:00 EDT, Compound Start Date: 07/24/23 Status: Ordered Pen Hana, 32 G x 4 mm BD Ultra [...] 2 Refills, Maintenance, 02/26/24 17:01:00 EDT, Capsule, [facility], Partial fill upon patient request if [...] Confirmed Active DMII Confirmed Active 1DrRyder Wade [phone], Norma. Dx 06/07/09 Social History Social History Type Response Smoking Status Former smoker, quit more than 30 days ago entered on: 06/11/19 Sex Patient Care team information Care Team Personnel Name: Becca Crain RN Position: S RN Member Role: Primary Care Nurse Name: Opal Renteria RN Position: [facility] SN RN Member Role: Primary Care Nurse Name: Jayna Sandhu RN Position: [facility] RN Member Role: Primary Care Nurse Name: Maty Valencia RN Position: [facility] RN Member Role: Primary Care Nurse Name: Christiano Rosenbaum RN Position: [facility] RN Member Role: Primary Care Nurse Name: Hema Lyn RN Position: [facility] RN Member Role: Primary Care Nurse Name: Roger Peña RN Position: [facility] RN Supv Member Role: Primary Care Nurse Name: Hira Black RN Position: [facility] RN Member Role: Primary Care Nurse Name: Mihir Jackson RN Position: [facility] RN Member Role: Primary Care Nurse Name: Danya Roman RN Position: [facility] SN RN Member Role: Primary Care Nurse Name: Ashley Brownlee RN Position: [facility] ED RN W/OE and Tasks Member Role: Primary Care Nurse Name: Elma Caruso (INSTR) Position: [facility] RN Member Role: Primary Care Nurse Name: Sowmya oHoks LPN Position: [facility] RN Member Role: Primary Care Nurse Name: Amanda Huerta RN Position: [facility] RN Member Role: Primary Care Nurse Name: Yessica Stock RN Position: [facility] RN Member Role: Primary Care Nurse Name: Hazel Valadez DO Position: [facility] Resident Member Role: PCP Address: Address: [address] [place] [address] [place] [address]- Name: Lizzette Barrientos RN Position: S RN Member Role: Primary Care Nurse Name: Nathanael Lawrence RN Position: [facility] RN Member Role: Primary Care Nurse Name: Zoe Falcon RN Position: [facility] RN Member Role: Primary Care Nurse Name: Jayna Escamilla RN Position: S RN Member Role: Primary Care Nurse Name: Juli Calles RN Position: S RN Member Role: Primary Care Nurse Name: Tahmina Choi Position: [facility] RN Member Role: Primary Care Nurse Name: Magdi Gutierrez RN Position: [facility] RN Member Role: Primary Care Nurse Care Team Related Persons Name: ZULEIMA MCKEON Address: [place] [address] Name: ZAYRA STREETER Address: home [address] [place] [address] Name: LUCITA TEMPLE Address: home Name: LARA TEMPLE Address: [address] [address] Name: JUSTIN HINES
--- OUTSIDE RECORDS SUMMARY | 2024-04-04 10:14 | XMS_ITS | Continuity of Care Document ---
Author Organization [facility] ter Address [address] [place] [address]- Care Team Providers Care Manager Disaster Recovery Name Role Phone Hazel Valadez DO Primary Care Physician [phone] Encounter [facility] Date(s): 10/17/22 - 10/17/[address] [address]- Discharge Disposition: A-D/C Walkout Attending Physician: Not [...] Reason: Med Not Available 3Result Comment: [10/30/2014] [id number] 4Admin Note: VIS GIVEN DATED: 04/29/12 5Admin Note: vis given 05/23/11 6Admin Note: VIS GIVEN-DATED 06/07/10 7Admin Note: vis give dated 08/03/09 8Admin Note: VIS GIVEN VIS DATE 05/08/06 Medications albuterol 0.083% inhalation solution 3 mL = 2.5 mg, Inhalation, Every 6 hours, # 360 mL, 11 Refills, Maintenance, 07/17/22 11:50:00 EDT,Solution, [facility] #[id number], 152, cm, 07/12/22 13:07:00 EDT, Height, 175.5, [...] 01/23/22 17:08:00 EDT, Route to Pharmacy Electronically, [facility] #[id number], 152, cm, 06/17/21 8:41:00 EDT, Height, 175.5, kg, 08/09/20 0:18:00... Start Date: 01/23/22 Stop Date: 01/07/25 Status: Ordered gabapentin 100 mg oral capsule 100 mg, 1, capsule, By Mouth, 3 times a day, # 90 capsule, Refills 0, Tot. Refills 0, Maintenance, 07/12/22 14:00:00 EDT, Route to Pharmacy Electronically, [facility] #[id number], Partial fill upon patient request if the prescription is for a kelly... Start Date: 07/12/22 Status: Ordered lisinopril 5 mg oral tablet 5 mg, 1, tablet, By Mouth, Daily, # 30 tablet, Refills 2, Tot. Refills 2, Maintenance, 07/17/22 17:03:00 EDT, Route to Pharmacy Electronically, [facility] #[id number], Please disregard 10mg dosing, 152, cm, 07/12/22 13:07:00 EDT, Height, 175.5, k... Start Date: 07/17/22 Status: Ordered metFORMIN 1000 mg oral tablet 1 tablet = 1,000 mg, By Mouth, 2 times a day, # 60 tablet, 11 Refills, Maintenance, 07/12/22 13:42:00 EDT, Tablet, [facility] #73302, cancel previous metformin scripts, 152, cm, 07/12/22 [...] 09/01/22 15:06:00 EDT, Route to Pharmacy Electronically, [facility] #[id number], Partial... Start Date: 09/01/22 Status: Ordered rolling [...] 11 Refills, Maintenance, 04/21/22 12:34:00 EDT, Powder, [facility] #60080, Partial fill upon patient request if the prescription is for a schedule II opioid drug., 1 puffs... Start Date: 04/21/22 Stop Date: 04/16/23 Status: Ordered Trulicity Pen 0.75 mg/0.5 mL subcutaneous solution 0.5 mL = 0.75 mg, Subcutaneous Injection, Every week, rotate injection sites, # 2 mL, 3 Refills, Maintenance, 07/12/22 14:01:00 EDT, Solution, [facility] #50323, Partial fill upon patient request if the prescription is for a schedule II opio... Start Date: 07/12/22 Status: Ordered Vitamin D3 2000 intl units oral capsule 1 capsule = 2,000 International_Units, By Mouth, Daily, # 60 capsule, 2 Refills, Maintenance, 07/17/22 16:56:00 EDT, Capsule, [facility] #[id number], Partial fill upon patient request if the [...] Confirmed Active DMII Confirmed Active 1DrRyder Wade [phone], Norma. Dx 06/07/09 Vital Signs Most recent to oldest [Reference Range]: 1 Liters per Minute 15 L/min (10/17/22 5:17 PM) Mode of Delivery (Oxygen) Nonrebreather mask (10/17/22 5:17 PM) Social History Social History Type Response Smoking Status Former smoker, quit more than 30 days ago entered on: 06/11/19 Sex Patient Care team information Care Team Personnel Name: Maty Valencia RN Position: [facility] RN Member Role: Primary Care Nurse Name: Danya Roman RN Position: [facility] AMB Nurse Member Role: Primary Care Nurse Name: Ashley Brownlee RN Position: [facility] ED RN W/OE and Tasks Member Role: Primary Care Nurse Name: Becca Enrique RN Position: [facility] RN Member Role: Primary Care Nurse Name: Elma Caruso (INSTR) Position: [facility] RN Member Role: Primary Care Nurse Name: Amanda Huerta RN Position: [facility] RN Member Role: Primary Care Nurse Name: Hazel Valadez DO Position: [facility] Resident Member Role: PCP Address: Address: [address] [place] [address] [place] [address]- Name: Stevan WARREN, Juli Rubio Position: S RN Member Role: Primary Care Nurse Care Team Related Persons Name: LINDA ZULEIMA Address: [place] [address] Name: LUCITA TEMPLE Address: home [address] [address] Name: LARA TEMPLE Address: home [address] [place] [address] Name: JUSTIN HINES
--- OUTSIDE RECORDS SUMMARY | 2024-04-04 10:14 | XMS_ITS | Continuity of Care Document ---
Author Organization [facility] Address [address] [place] [address]- Care Team Providers Care Freight Loader Name Role Phone Allyson ARMSTRONG Hazel Primary Care Physician [facility] Date[facility]s): 04/02/23 - 05/02/23 [facility] [address] [place] [address]- Attending Physician: Vannesa Paulino Admitting Physician: AdmVannesa [...] Reason: Med Not Available 2Result Comment: [10/30/2014] [id number] Note: VIS GIVEN DATED: 04/29/12 4Admin Note: vis given 05/23/11 5Admin Note: VIS GIVEN-DATED 06/07/10 6Result Comment: in error 7Admin Note: vis give dated 08/03/09 8Admin Note: VIS GIVEN VIS DATE 05/08/06 Medications albuterol 0.083% inhalation solution 3 mL = 2.5 mg, Inhalation, Every 6 hours, # 360 mL, 11 Refills, Maintenance, 07/17/22 11:50:00 EDT,Solution, [facility] #[id number], 152, cm, 07/12/22 13:07:00 EDT, Height, 175.5, [...] 03/31/23 21:58:00 EDT, Route to Pharmacy Electronically, [facility] #[id number], Partial fill upon patient request if the [...] 01/07/25 17:08:00 EDT, Route to Pharmacy Electronically, [facility] #18446, 149.86, cm, 02/09/23 15:52:00 EDT, Height, 172.3, kg, 11/26/22 5:4... Start Date: 01/07/25 Stop Date: 12/23/27 Status: Ordered furosemide 40 mg oral tablet 40 mg, 1, tablet, By Mouth, 2 times a day, for 90 days, # 180 tablet, Refills 11, Tot. Refills 11, Hard Stop 01/07/25 17:08:00 EDT, 01/23/22 17:08:00 EDT, Route to Pharmacy Electronically, [facility] #64719, 152, cm, 06/17/21 8:41:00 EDT, He... Start Date: 01/23/22 Stop Date: 01/07/25 Status: Ordered gabapentin 100 mg oral capsule 100 mg, 1, capsule, By Mouth, 3 times a day, # 90 capsule, Refills 0, Tot. Refills 0, Maintenance, 12/14/22 17:21:00 EST, Route to Pharmacy Electronically, [facility] #87503, Partial fill upon patient request if the prescription is for a kelly... Start Date: 12/14/22 Status: Ordered ibuprofen 800 mg oral tablet 800 mg, 1, tablet, By Mouth, 3 times a day, for pain with food or milk, # 30 tablet, Refills 0, Tot. Refills 0, Maintenance, 02/09/23 17:06:00 EDT, Route to Pharmacy Electronically, [facility] #67319, Partial fill upon patient request if th... Start Date: 02/09/23 Status: Ordered metFORMIN 1000 mg oral tablet 1 tablet = 1,000 mg, By Mouth, 2 times a day, # 60 tablet, 11 Refills, Maintenance, 07/12/22 13:42:00 EDT, Tablet, [facility] #00678, cancel previous metformin scripts, 152, cm, 07/12/22 13:07:00 EDT, Height, 175.5, kg, 08/09/20 0:18:00 EDT,... Start Date: 07/12/22 Status: Ordered multivitamin Multiple Vitamins oral capsule 1 capsule, By Mouth, Daily, # 30 capsule, 0 Refills, Maintenance, 03/23/23 7:59:00 EDT, Capsule, [facility] #83734, Partial fill upon patient request if the [...] 11 Refills, Maintenance, 04/21/22 12:34:00 EDT, Powder, [facility] #42142, Partial fill upon patient request if the prescription is for a schedule II opioid drug., 1 puffs... Start Date: 04/21/22 Stop Date: 04/16/23 Status: Ordered Trulicity Pen 0.75 mg/0.5 mL subcutaneous solution 0.5 mL = 0.75 mg, Subcutaneous Injection, Every week, rotate injection sites, # 2 mL, 3 Refills, Maintenance, 07/12/22 14:01:00 EDT, Solution, [facility] #20054, Partial fill upon patient request if the prescription is for a schedule II opio... Start Date: 07/12/22 Status: Ordered Vitamin D3 2000 intl units oral capsule 1 capsule = 2,000 International_Units, By Mouth, Daily, # 60 capsule, 2 Refills, Maintenance, 07/17/22 16:56:00 EDT, Capsule, [facility] #22025, Partial fill upon patient request if the [...] Confirmed Active DMII Confirmed Active Cy Wade [phone], Norma. Dx 06/07/09 Social History Social History Type Response Smoking Status Former smoker, quit more than 30 days ago entered on: 06/11/19 Sex Cardiology * Event Display: Cardiology Office Note, Non-BH Authored Date: [id number] Note * Philipp Hutton: PERFORM, SIGN, VERIFY Event Display: Patient Education/Instruction Authored Date: [id number] [facility] Clinical Summary Person Information Name ZULEIMA [...] primary care provider, you may find a [facility] provider by calling [facility] at [phone]. Patient Education Information Follow-up Details: With: Address: When: María Albrecht MD [address] [place] [address] phone, fixed, [employer] (1) Within 1 month Comments: WEIGHT MANAGMENT Patient Education Material: Patient Care team information Care Team Personnel Name: Jayna Sandhu RN Position: [facility] RN Member Role: Primary Care Nurse Name: Maty Valencia RN Position: [facility] RN Member Role: Primary Care Nurse Name: Roger Peña RN Position: [facility] RN Supv Member Role: Primary Care Nurse Name: Mihir Jackson RN Position: S RN Member Role: Primary Care Nurse Name: Tessy Jaramillo RN Position: [facility] RN Member Role: Primary Care Nurse Name: Danya Roman RN Position: [facility] RN Member Role: Primary Care Nurse Name: Ashley Brownlee RN Position: [facility] ROC[place] RN W/OE and Tasks Member Role: [...] SOUTH Resident Member Role: PCP Address: Address: [address] [place] [address] Adult [place], [place] [address] Name: Radha Bravo RN Position: S RN Member Role: Primary Care Nurse Name: Juli Calles RN Position: [facility] RN Member Role: Primary Care Nurse Care Team Related Persons Name: ZULEIMA MCKEON Address: [place] [address] Name: LUCITA TEMPLE Address: home Name: LARA TEMPLE Name: JUSTIN HINES
--- OUTSIDE RECORDS SUMMARY | 2024-04-04 10:14 | XMS_ITS | Continuity of Care Document ---
Author Organization [facility] Address [address] [place] [address]- Care Team Providers Care Foam Molder Name Role Phone Joey Steele MD Primary Care Physician [place] [facility] [place] 04[place]22 [facility] [address] [place] [address]- Attending Physician: Maximus Rosen MD Admitting Physician: [...] Reason: Med Not Available 3Result Comment: [10/30/2014] [id number] 4Admin Note: VIS GIVEN DATED: 04/29/12 5Admin Note: vis given 05/23/11 6Admin Note: VIS GIVEN-DATED 06/07/10 7Admin Note: vis give dated 08/03/09 8Admin Note: VIS GIVEN VIS DATE 05/08/06 Medications albuterol 0.083% inhalation solution 3 mL = 2.5 mg, Inhalation, Every 6 hours, # 360 mL, 11 Refills, Maintenance, 08/29/20 20:48:00 EST,Solution, [facility], 152, cm, 08/13/20 13:28:00 EDT, Height, 175.5, kg, 08/09/20 0:18:00 EDT, Dry Weight Start Date: 08/29/20 Stop Date: 08/24/21 Status: Ordered albuterol CFC free 90 mcg/inh inhalation aerosol 2, puffs, Inhalation, 4 times a day, PRN, FOR WHEEZING AND SHORTNESS OF BREATH, # 1 each, Refills 5, Tot. Refills 5, Maintenance, 08/24/21 20:48:00 EDT, Route to Pharmacy Electronically, [id number], [facility] #[id number]... Start Date: 08/24/21 Stop Date: 02/20/22 Status: Ordered duloxetine 60 mg oral enteric coated capsule 1 capsule = 60 mg, By Mouth, Daily, # 30 capsule, 10 Refills, Maintenance, 10/14/20 15:08:00 EST, EC Capsule, [facility] #[id number], Partial fill upon patient request if the prescription is fora schedule II opioid drug., 152, cm, 08/13/20 13:28... Start Date: 10/14/20 Status: Ordered furosemide 40 mg oral tablet 40 mg, 1, tablet, By Mouth, 2 times a day, # 180 tablet, Refills 11, Tot. Refills 11, Maintenance, 03/28/22 17:08:00 EDT, Route to Pharmacy Electronically, [facility] #[id number], 152, cm, 06/17/21 8:41:00 EDT, Height, 175.5, kg, 08/09/20 0:18:00... Start Date: 01/23/22 Stop Date: 01/07/25 Status: Ordered hydrOXYzine hydrochloride 25 mg oral tablet 1 tablet = 25 mg, By Mouth, 4 times a day, PRN for anxiety, # 40 tablet, 1 Refills, Maintenance, 08/28/21 15:25:00 EDT, Tablet, [facility] #[id number], Partial fill upon patient request if the prescription is for a schedule II opioid drug., 152,... Start Date: 08/28/21 Stop Date: 10/27/21 Status: Ordered meloxicam 15 mg oral tablet 1 tablet = 15 mg, By Mouth, Daily, For knee and back pain, # 30 tablet, 2 Refills, Maintenance, 06/17/21 9:06:00 EDT, Tablet, [facility] #[id number], Partial fill upon patient request if the prescription is for a schedule II opioid drug., 152, cm... Start Date: 06/17/21 Status: Ordered metFORMIN 1000 mg oral tablet 1 tablet = 1,000 mg, By Mouth, 2 times a day, # 60 tablet, 11 Refills, Maintenance, 06/17/21 9:12:00 EDT, Tablet, [facility] #[id number], cancel previous metformin scripts, 152, cm, 06/17/21 [...] 10 Refills, Maintenance, 10/14/20 15:09:00 EST, Tablet, [facility] #[id number], 152, cm, 08/13/20 13:28:00 EDT, Height, 175.5, [...] 11 Refills, Maintenance, 04/21/22 12:34:00 EDT, Powder, [facility] #[id number], Partial fill upon patient request if the prescription is for a schedule II opioid drug., 1 puffs... Start Date: 04/21/22 Stop Date: 04/16/23 Status: Ordered Vitamin D3 2000 intl units oral capsule 1 capsule = 2,000 International_Units, By Mouth, Daily, # 60 capsule, 2 Refills, Maintenance, 11/02/20 10:14:00 EST, Capsule, [facility] #[id number], Partial fill upon patient request if the [...] obesity(Confirmed) Active DMII(Confirmed) Active 1Dr. Tunde Wade [phone], Norma. Dx 06/07/09 Social History Social History Type Response Smoking Status Former smoker, quit more than 30 days ago entered on: 06/11/19 Sex
--- OUTSIDE RECORDS SUMMARY | 2024-04-04 10:14 | XMS_ITS | Continuity of Care Document ---
Author Organization [facility] Address [address] [place] [address]- Care Team Providers Care Machine Set Up Operator Name Role Phone Hazel Valadez DO Primary Care Physician Encounter 09/11/22 - 11/07/22 [facility] [address] [place] [address]- Discharge Disposition: PER CLIENT REQUEST Allergies, Adverse Reactions, Alerts Substance Reaction Severity [...] Gi erwin influenza virus vaccine, inactivated 10/09/11 Jaicel rded influenza virus vaccine, inactivated 5 09/14/11 [...] Reason: Med Not Available 3Result Comment: [10/30/2014] [id number] 4Admin Note: VIS GIVEN DATED: 04/29/12 5Admin Note: vis given 05/23/11 6Admin Note: VIS GIVEN-DATED 06/07/10 7Admin Note: vis give dated 08/03/09 8Admin Note: VIS GIVEN VIS DATE 05/08/06 Medications albuterol 0.083% inhalation solution 3 mL = 2.5 mg, Inhalation, Every 6 hours, # 360 mL, 11 Refills, Maintenance, 07/17/22 11:50:00 EDT,Solution, [facility] #[id number], 152, cm, 07/12/22 13:07:00 EDT, Height, 175.5, [...] 01/23/22 17:08:00 EDT, Route to Pharmacy Electronically, [facility] #[id number], 152, cm, 06/17/21 8:41:00 EDT, Height, 175.5, kg, 08/09/20 0:18:00... Start Date: 01/23/22 Stop Date: 01/07/25 Status: Ordered gabapentin 100 mg oral capsule 100 mg, 1, capsule, By Mouth, 3 times a day, # 90 capsule, Refills 0, Tot. Refills 0, Maintenance, 07/12/22 14:00:00 EDT, Route to Pharmacy Electronically, [facility] #[id number], Partial fill upon patient request if the prescription is for a kelly... Start Date: 07/12/22 Status: Ordered lisinopril 5 mg oral tablet 5 mg, 1, tablet, By Mouth, Daily, # 30 tablet, Refills 2, Tot. Refills 2, Maintenance, 07/17/22 17:03:00 EDT, Route to Pharmacy Electronically, [facility] #[id number], Please disregard 10mg dosing, 152, cm, 07/12/22 13:07:00 EDT, Height, 175.5, k... Start Date: 07/17/22 Status: Ordered metFORMIN 1000 mg oral tablet 1 tablet = 1,000 mg, By Mouth, 2 times a day, # 60 tablet, 11 Refills, Maintenance, 07/12/22 13:42:00 EDT, Tablet, [facility] #[id number], cancel previous metformin scripts, 152, cm, 07/12/22 [...] 09/01/22 15:06:00 EDT, Route to Pharmacy Electronically, [facility] #[id number], Partial... Start Date: 09/01/22 Status: Ordered rolling [...] 11 Refills, Maintenance, 04/21/22 12:34:00 EDT, Powder, [facility] #[id number], Partial fill upon patient request if the prescription is for a schedule II opioid drug., 1 puffs... Start Date: 04/21/22 Stop Date: 04/16/23 Status: Ordered Trulicity Pen 0.75 mg/0.5 mL subcutaneous solution 0.5 mL = 0.75 mg, Subcutaneous Injection, Every week, rotate injection sites, # 2 mL, 3 Refills, Maintenance, 07/12/22 14:01:00 EDT, Solution, [facility] #[id number], Partial fill upon patient request if the prescription is for a schedule II opio... Start Date: 07/12/22 Status: Ordered Vitamin D3 2000 intl units oral capsule 1 capsule = 2,000 International_Units, By Mouth, Daily, # 60 capsule, 2 Refills, Maintenance, 07/17/22 16:56:00 EDT, Capsule, [facility] #[id number], Partial fill upon patient request if the [...] Confirmed Active DMII Confirmed Active 1Dr. Tunde Doylelucia [phone], Sarita. Dx 06/07/09 Social History Social History Type Response Smoking Status Former smoker, quit more than 30 days ago entered on: 06/11/19 Sex Patient Care team information Care Team Personnel Name: Maty Valencia RN Position: [facility] RN Member Role: Primary Care Nurse Name: Danya Roman RN Position: [facility] AMB Nurse Member Role: Primary Care Nurse Name: Ashley Brownlee RN Position: [facility] ED RN W/OE and Tasks Member Role: Primary Care Nurse Name: Becca Enrique RN Position: [facility] RN Member Role: Primary Care Nurse Name: Elma Caruso (INSTR) Position: [facility] RN Member Role: Primary Care Nurse Name: Amanda Huerta RN Position: [facility] RN Member Role: Primary Care Nurse Name: Hazel Valadez DO Position: [facility] Resident Member Role: PCP Address: Address: [address] [place] [address] [place] [address]- Name: Juli Calles RN Position: [facility] RN Member Role: Primary Care Nurse Care Team Related Persons Name: ZULEIMA MCKEON Address: [place] [address] Name: LUCITA TEMPLE Address: home [address] [address] Name: LARA TEMPLE Address: home [address] [place] [address] Name: JUSTIN HINES
--- OUTSIDE RECORDS SUMMARY | 2024-04-04 10:14 | XMS_ITS | Continuity of Care Document ---
Author Organization [facility] Address [address] [place] [address]- Care Team Providers Care Corporate Planner Name Role Phone Joey Steele MD Primary Care Physician Encounter [facility] Date(s): 08/09/21 - 09/08/21 [facility] [address] [place] [address]- Attending Physician: Vannesa Paulino Admitting Physician: AdmVannesa [...] Gi erwin influenza virus vaccine, inactivated 10/06/10 Ajciel rded influenza virus vaccine, inactivated 08/10/09 Jaciel rded influenza virus vaccine, inactivated 09/03/07 Jaciel rded pneumococcal 23-valent vaccine 7 06/30/11 Given tetanus/diphtheria/pertussis, acel(Tdap) 10/06/10 Recorded diphtheria-tetanus toxoids (DT) 8 06/15/09 Given tetanus-diphtheria toxoids (Td) 12/23/08 Recorded 1Result Comment: in error 2Early/Late Reason: Med Not Available 3Result Comment: [10/30/2014] [id number] 4Admin Note: VIS GIVEN DATED: 04/29/12 5Admin Note: vis given 05/23/11 6Admin Note: VIS GIVEN-DATED 06/07/10 7Admin Note: vis give dated 08/03/09 8Admin Note: VIS GIVEN VIS DATE 05/08/06 Medications albuterol 0.083% inhalation solution 3 mL = 2.5 mg, Inhalation, Every 6 hours, # 360 mL, 11 Refills, Maintenance, 08/29/20 20:48:00 EST,Solution, [facility], 152, cm, 08/13/20 13:28:00 EDT, Height, 175.5, kg, 08/09/20 0:18:00 EDT, Dry Weight Start Date: 08/29/20 Stop Date: 08/24/21 Status: Ordered albuterol CFC free 90 mcg/inh inhalation aerosol 2, puffs, Inhalation, 4 times a day, PRN, FOR WHEEZING AND SHORTNESS OF BREATH, # 1 each, Refills 5, Tot. Refills 5, Maintenance, 08/24/21 20:48:00 EDT, Route to Pharmacy Electronically, [id number], [facility] #[id number]... Start Date: 08/24/21 Stop Date: 02/20/22 Status: Ordered duloxetine 60 mg oral enteric coated capsule 1 capsule = 60 mg, By Mouth, Daily, # 30 capsule, 10 Refills, Maintenance, 10/14/20 15:08:00 EST, EC Capsule, [facility] #[id number], Partial fill upon patient request if the prescription is fora schedule II opioid drug., 152, cm, 08/13/20 13:28... Start Date: 10/14/20 Status: Ordered furosemide 40 mg oral tablet 40 mg, 1, tablet, By Mouth, 2 times a day, # 60 tablet, Refills 10, Tot. Refills 10, Maintenance, 10/14/20 15:09:00 EST, Route to Pharmacy Electronically, [facility] #[id number], 152, cm, 08/13/20 13:28:00 EDT, Height, 175.5, kg, 08/09/20 0:18:00... Start Date: 10/14/20 Stop Date: 09/09/21 Status: Ordered hydrOXYzine hydrochloride 25 mg oral tablet 1 tablet = 25 mg, By Mouth, 4 times a day, PRN for anxiety, # 40 tablet, 1 Refills, Maintenance, 08/28/21 15:25:00 EDT, Tablet, [facility] #[id number], Partial fill upon patient request if the prescription is for a schedule II opioid drug., 152,... Start Date: 08/28/21 Stop Date: 10/27/21 Status: Ordered meloxicam 15 mg oral tablet 1 tablet = 15 mg, By Mouth, Daily, For knee and back pain, # 30 tablet, 2 Refills, Maintenance, 06/17/21 9:06:00 EDT, Tablet, [facility] #[id number], Partial fill upon patient request if the prescription is for a schedule II opioid drug., 152, cm... Start Date: 06/17/21 Status: Ordered metFORMIN 1000 mg oral tablet 1 tablet = 1,000 mg, By Mouth, 2 times a day, # 60 tablet, 11 Refills, Maintenance, 06/17/21 9:12:00 EDT, Tablet, [facility] #[id number], cancel previous metformin scripts, 152, cm, 06/17/21 [...] 10 Refills, Maintenance, 10/14/20 15:09:00 EST, Tablet, [facility] #[id number], 152, cm, 08/13/20 13:28:00 EDT, Height, 175.5, [...] 2 Refills, Maintenance, 11/02/20 10:14:00 EST, Capsule, [facility] #[id number], Partial fill upon patient request if the [...] Active Osteoarthritis(Confirmed) Active DMII(Confirmed) Active 1DrRyder Wade [phone], Norma. Dx 06/07/09 Social History Social History Type Response Smoking Status Former smoker, quit more than 30 days ago entered on: 06/11/19 Sex
--- OUTSIDE RECORDS SUMMARY | 2024-04-04 10:14 | XMS_ITS | Continuity of Care Document ---
Author Organization [facility] Address [address] [place] [address]- Care Team Providers Care Nuclear Medicine Medical Director Name Role Phone Valadez DO Hazel Primary Care Physician Encounter [facility] Date(s): 05/12/22 - 06/11/22 [facility] [address] [place] [address]- Allergies, Adverse Reactions, Alerts Substance Reaction Severity [...] Reason: Med Not Available 3Result Comment: [10/30/2014] [id number] 4Admin Note: VIS GIVEN DATED: 04/29/12 5Admin [...] 08/24/21 20:48:00 EDT, Route to Pharmacy Electronically, [id number], [facility] #[id number]... Start Date: 08/24/21 Stop Date: 02/20/22 Status: Ordered duloxetine 60 mg oral enteric coated capsule 1 capsule = 60 mg, By Mouth, Daily, # 30 capsule, 10 Refills, Maintenance, 10/14/20 15:08:00 EST, EC Capsule, [facility] #[id number], Partial fill upon patient request if the prescription is fora schedule II opioid drug., 152, cm, 08/13/20 13:28... Start Date: 10/14/20 Status: Ordered furosemide 40 mg oral tablet 40 mg, 1, tablet, By Mouth, 2 times a day, # 180 tablet, Refills 11, Tot. Refills 11, Maintenance, 01/23/22 17:08:00 EDT, Route to Pharmacy Electronically, [facility] #[id number], 152, cm, 06/17/21 8:41:00 EDT, Height, 175.5, kg, 08/09/20 0:18:00... Start Date: 01/23/22 Stop Date: 01/07/25 Status: Ordered hydrOXYzine hydrochloride 25 mg oral tablet 1 tablet = 25 mg, By Mouth, 4 times a day, PRN for anxiety, # 40 tablet, 1 Refills, Maintenance, 08/28/21 15:25:00 EDT, Tablet, [facility] #[id number], Partial fill upon patient request if the prescription is for a schedule II opioid drug., 152,... Start Date: 08/28/21 Stop Date: 10/27/21 Status: Ordered meloxicam 15 mg oral tablet 1 tablet = 15 mg, By Mouth, Daily, For knee and back pain, # 30 tablet, 2 Refills, Maintenance, 06/17/21 9:06:00 EDT, [facility] #[id number], Partial fill upon patient request if the prescription is for a schedule II opioid drug., 152, cm... Start Date: 06/17/21 Status: Ordered metFORMIN 1000 mg oral tablet 1 tablet = 1,000 mg, By Mouth, 2 times a day, # 60 tablet, 11 Refills, Maintenance, 06/17/21 9:12:00 EDT, Tablet, [facility] #[id number], cancel previous metformin scripts, 152, cm, 06/17/21 [...] 10 Refills, Maintenance, 10/14/20 15:09:00 EST, Tablet, [facility] #[id number], 152, cm, 08/13/20 13:28:00 EDT, Height, 175.5, [...] 11 Refills, Maintenance, 04/21/22 12:34:00 EDT, Powder, [facility] #[id number], Partial fill upon patient request if the prescription is for a schedule II opioid drug., 1 puffs... Start Date: 04/21/22 Stop Date: 04/16/23 Status: Ordered Vitamin D3 2000 intl units oral capsule 1 capsule = 2,000 International_Units, By Mouth, Daily, # 60 capsule, 2 Refills, Maintenance, 11/02/20 10:14:00 EST, Capsule, [facility] #[id number], Partial fill upon patient request if the [...] Severe obesity(Confirmed) Active DMII(Confirmed) Active 1DrRyder Wade [phone], Norma. Dx 06/07/09 Social History Social History Type Response Smoking Status Former smoker, quit more than 30 days ago entered on: 06/11/19 Sex
--- OUTSIDE RECORDS SUMMARY | 2024-04-04 10:14 | XMS_ITS | Continuity of Care Document ---
Author Organization [facility] Address [address] [place] [address]- Care Team Providers Care Inside Sales Recruiter Name Role Phone Hazel Valadez DO Primary Care Physician [phone] Encounter [facility] Date(s): 10/25/22 - 11/24/[address] [address]- Allergies, Adverse Reactions, Alerts Substance Reaction Severity [...] (DT) 8 06/15/09 Given tetanus-diphtheria toxoids (Td) 2/25/09 Recorded 1Result Comment: in error 2Early/Late Reason: Med Not Available 3Result Comment: [10/30/2014] [id number] 4Admin Note: VIS GIVEN DATED: 04/29/12 5Admin Note: vis given 05/23/11 6Admin Note: VIS GIVEN-DATED 06/07/10 7Admin Note: vis give dated 08/03/09 8Admin Note: VIS GIVEN VIS DATE 05/08/06 Medications albuterol 0.083% inhalation solution 3 mL = 2.5 mg, Inhalation, Every 6 hours, # 360 mL, 11 Refills, Maintenance, 07/17/22 11:50:00 EDT,Solution, [facility] #[id number], 152, cm, 07/12/22 13:07:00 EDT, Height, 175.5, [...] 01/23/22 17:08:00 EDT, Route to Pharmacy Electronically, [facility] #[id number], 152, cm, 06/17/21 8:41:00 EDT, Height, 175.5, kg, 08/09/20 0:18:00... Start Date: 01/23/22 Stop Date: 01/07/25 Status: Ordered gabapentin 100 mg oral capsule 100 mg, 1, capsule, By Mouth, 3 times a day, # 90 capsule, Refills 0, Tot. Refills 0, Maintenance, 07/12/22 14:00:00 EDT, Route to Pharmacy Electronically, [facility] #[id number], Partial fill upon patient request if the prescription is for a kelly... Start Date: 07/12/22 Status: Ordered lisinopril 5 mg oral tablet 5 mg, 1, tablet, By Mouth, Daily, # 30 tablet, Refills 2, Tot. Refills 2, Maintenance, 07/17/22 17:03:00 EDT, Route to Pharmacy Electronically, [facility] #[id number], Please disregard 10mg dosing, 152, cm, 07/12/22 13:07:00 EDT, Height, 175.5, k... Start Date: 07/17/22 Status: Ordered metFORMIN 1000 mg oral tablet 1 tablet = 1,000 mg, By Mouth, 2 times a day, # 60 tablet, 11 Refills, Maintenance, 07/12/22 13:42:00 EDT, Tablet, [facility] #[id number], cancel previous metformin scripts, 152, cm, 07/12/22 [...] 09/01/22 15:06:00 EDT, Route to Pharmacy Electronically, [facility] #[id number], Partial... Start Date: 09/01/22 Status: Ordered rolling [...] 11 Refills, Maintenance, 04/21/22 12:34:00 EDT, Powder, [facility] #99730, Partial fill upon patient request if the prescription is for a schedule II opioid drug., 1 puffs... Start Date: 04/21/22 Stop Date: 04/16/23 Status: Ordered Trulicity Pen 0.75 mg/0.5 mL subcutaneous solution 0.5 mL = 0.75 mg, Subcutaneous Injection, Every week, rotate injection sites, # 2 mL, 3 Refills, Maintenance, 07/12/22 14:01:00 EDT, Solution, [facility] #[id number], Partial fill upon patient request if the prescription is for a schedule II opio... Start Date: 07/12/22 Status: Ordered Vitamin D3 2000 intl units oral capsule 1 capsule = 2,000 International_Units, By Mouth, Daily, # 60 capsule, 2 Refills, Maintenance, 07/17/22 16:56:00 EDT, Capsule, [facility] #[id number], Partial fill upon patient request if the [...] Active DMII Confirmed Active 1Dr. Tunde Wade [phone], [place]. Dx 06/07/09 Social History Social History Type Response Smoking Status Former smoker, quit more than 30 days ago entered on: 06/11/19 Sex Patient Care team information Care Team Personnel Name: Maty Valencia RN Position: [facility] RN Member Role: Primary Care Nurse Name: Danya Roman RN Position: [facility] AMB Nurse Member Role: Primary Care Nurse Name: Ashley Brownlee RN Position: [facility] ED RN W/OE and Tasks Member Role: Primary Care Nurse Name: Becca Enrique RN Position: [facility] RN Member Role: Primary Care Nurse Name: Elma Caruso (INSTR) Position: [facility] RN Member Role: Primary Care Nurse Name: Amanda Huerta RN Position: [facility] RN Member Role: Primary Care Nurse Name: Hazel Valadez DO Position: [facility] Resident Member Role: PCP Address: Address: [address] [place] [address] [place] [address]- Name: Juli Calles RN Position: [facility] RN Member Role: Primary Care Nurse Care Team Related Persons Name: ALICJA MCKEONRA Address: [place] [address] Name: LUCITA TEMPLE Address: home Name: LARA TEMPLE Address: home [address] [place] [id number] Name: JUSTIN HINES
--- OUTSIDE RECORDS SUMMARY | 2024-04-04 10:14 | XMS_ITS | Continuity of Care Document ---
Author Organization [facility] Address [address] [place] [address]- Care Team Providers Care Nurses Educator Name Role Phone Joey Steele MD Primary Care Physician [facility]counter [facility] Date[facility]s): 03/09/22 - 04/08/22 [facility] [address] [place] [address]- Allergies, Adverse Reactions, Alerts Substance Reaction Severity [...] Reason: Med Not Available 3Result Comment: [10/30/2014] [id number] 4Admin Note: VIS GIVEN DATED: 04/29/12 5Admin Note: vis given 05/23/11 6Admin Note: VIS GIVEN-DATED 06/07/10 7Admin Note: vis give dated 08/03/09 8Admin Note: VIS GIVEN VIS DATE 05/08/06 Medications albuterol 0.083% inhalation solution 3 mL = 2.5 mg, Inhalation, Every 6 hours, # 360 mL, 11 Refills, Maintenance, 08/29/20 20:48:00 EST,Solution, [facility], 152, cm, 08/13/20 13:28:00 EDT, Height, 175.5, kg, 08/09/20 0:18:00 EDT, Dry Weight Start Date: 08/29/20 Stop Date: 08/24/21 Status: Ordered albuterol CFC free 90 mcg/inh inhalation aerosol 2, puffs, Inhalation, 4 times a day, PRN, FOR WHEEZING AND SHORTNESS OF BREATH, # 1 each, Refills 5, Tot. Refills 5, Maintenance, 08/24/21 20:48:00 EDT, Route to Pharmacy Electronically, [id number], [facility] #[id number]... Start Date: 08/24/21 Stop Date: 02/20/22 Status: Ordered duloxetine 60 mg oral enteric coated capsule 1 capsule = 60 mg, By Mouth, Daily, # 30 capsule, 10 Refills, Maintenance, 10/14/20 15:08:00 EST, EC Capsule, [facility] #[id number], Partial fill upon patient request if the prescription is fora schedule II opioid drug., 152, cm, 08/13/20 13:28... Start Date: 10/14/20 Status: Ordered furosemide 40 mg oral tablet 40 mg, 1, tablet, By Mouth, 2 times a day, # 180 tablet, Refills 11, Tot. Refills 11, Maintenance, 01/23/22 17:08:00 EDT, Route to Pharmacy Electronically, [facility] #[id number], 152, cm, 06/17/21 8:41:00 EDT, Height, 175.5, kg, 08/09/20 0:18:00... Start Date: 01/23/22 Stop Date: 01/07/25 Status: Ordered hydrOXYzine hydrochloride 25 mg oral tablet 1 tablet = 25 mg, By Mouth, 4 times a day, PRN for anxiety, # 40 tablet, 1 Refills, Maintenance, 08/28/21 15:25:00 EDT, Tablet, [facility] #[id number], Partial fill upon patient request if the prescription is for a schedule II opioid drug., 152,... Start Date: 08/28/21 Stop Date: 10/27/21 Status: Ordered meloxicam 15 mg oral tablet 1 tablet = 15 mg, By Mouth, Daily, For knee and back pain, # 30 tablet, 2 Refills, Maintenance, 06/17/21 9:06:00 EDT, [facility] #[id number], Partial fill upon patient request if the prescription is for a schedule II opioid drug., 152, cm... Start Date: 06/17/21 Status: Ordered metFORMIN 1000 mg oral tablet 1 tablet = 1,000 mg, By Mouth, 2 times a day, # 60 tablet, 11 Refills, Maintenance, 06/17/21 9:12:00 EDT, [facility] #[id number], cancel previous metformin scripts, 152, cm, 06/17/21 [...] 10 Refills, Maintenance, 10/14/20 15:09:00 EST, Tablet, [facility] #[id number], 152, cm, 08/13/20 13:28:00 EDT, Height, 175.5, [...] 11:58:00 EDT, Aerosol, Route to Pharmacy Electronically, [id number], [facility] #[id number], 152, cm, 03/09/22 11:51:00 EDT,... Start Date: 03/09/22 Status: Ordered Vitamin D3 2000 intl units oral capsule 1 capsule = 2,000 International_Units, By Mouth, Daily, # 60 capsule, 2 Refills, Maintenance, 11/02/20 10:14:00 EST, Capsule, [facility] #[id number], Partial fill upon patient request if the [...] Severe obesity(Confirmed) Active DMII(Confirmed) Active 1DrRyder Wade [phone], Norma. Dx 06/07/09 Social History Social History Type Response Smoking Status Former smoker, quit more than 30 days ago entered on: 06/11/19 Sex
--- OUTSIDE RECORDS SUMMARY | 2024-04-04 10:14 | XMS_ITS | Continuity of Care Document ---
Author Organization [facility] ter Address [address] [place] [address]- Care Team Providers Care Director Funds Development Name Role Phone Joey Steele MD Primary Care Physician En[place] [facility] [place] 10/27/19 - 11/26/[address] [address]- [facility] Attending Physician: Melquiades MILLER, Yung Stover Admitting [...] (DT) 6 06/15/09 Given 1Result Comment: [10/30/2014] [id number] 2Admin Note: VIS GIVEN DATED: 04/29/12 3Admin [...] 11/22/18 12:58:17 EST, Route to Pharmacy Electronically, [id number], [facility] Start Date: 11/22/18 Stop Date: 11/17/19 [...] s leep 75% in 2012(Confirmed) 2012 Active Hypoxia - desat on ambulatio n 02/10/19 (workup pending)(Confirmed) 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 Tunde Wade [phone], Norma. Dx 06/07/09 Social History Social History Type Response Smoking Status Former smoker, quit more than 30 days ago entered on: 06/11/19 Sex
--- OUTSIDE RECORDS SUMMARY | 2024-04-04 10:14 | XMS_ITS | Continuity of Care Document ---
Author Organization [facility] ter Address [address] [place] [address]- Care Team Providers Care Film Librarian Name Role Phone Hazel Valadez DO Primary Care Physician [place] [facility] [place] - 12/23/[address] [address]- Encounter Diagnosis Pyelonephritis(Final) - 12/23/22 Discharge Disposition: A-D/C Home Attending Physician: Bobbi [...] influenza virus vaccine, inactivated 3 06/20/12 Gi ewrin influenza virus vaccine, inactivated 10/09/11 Jaciel rded [...] Reason: Med Not Available 2Result Comment: [10/30/2014] [id number] 3Admin Note: VIS GIVEN DATED: 04/29/12 4Admin Note: vis given 05/23/11 5Admin Note: VIS GIVEN-DATED 06/07/10 6Result Comment: in error 7Admin Note: vis give dated 08/03/09 8Admin Note: VIS GIVEN VIS DATE 05/08/06 Medications albuterol 0.083% inhalation solution 3 mL = 2.5 mg, Inhalation, Every 6 hours, # 360 mL, 11 Refills, Maintenance, 07/17/22 11:50:00 EDT,Solution, [facility] #[id number], 152, cm, 07/12/22 13:07:00 EDT, Height, 175.5, [...] Acute 01/06/23 11:05:00 EST, 12/23/22 11:05:00 EST, Tablet, [facility] #[id number], Partial fill upon patient request if the [...] 01/23/22 17:08:00 EDT, Route to Pharmacy Electronically, [facility] #[id number], 152, cm, 06/17/21 8:41:00 EDT, Height, 175.5, kg, 08/09/20 0:18:00... Start Date: 01/23/22 Stop Date: 01/07/25 Status: Ordered gabapentin 100 mg oral capsule 100 mg, 1, capsule, By Mouth, 3 times a day, # 90 capsule, Refills 0, Tot. Refills 0, Maintenance, 12/14/22 17:21:00 EST, Route to Pharmacy Electronically, [facility] #[id number], Partial fill upon patient request if the prescription is for a kelly... Start Date: 12/14/22 Status: Ordered metFORMIN 1000 mg oral tablet 1 tablet = 1,000 mg, By Mouth, 2 times a day, # 60 tablet, 11 Refills, Maintenance, 07/12/22 13:42:00 EDT, Tablet, [facility] #[id number], cancel previous metformin scripts, 152, cm, 07/12/22 [...] 11 Refills, Maintenance, 04/21/22 12:34:00 EDT, Powder, [facility] #[id number], Partial fill upon patient request if the prescription is for a schedule II opioid drug., 1 puffs... Start Date: 04/21/22 Stop Date: 04/16/23 Status: Ordered Trulicity Pen 0.75 mg/0.5 mL subcutaneous solution 0.5 mL = 0.75 mg, Subcutaneous Injection, Every week, rotate injection sites, # 2 mL, 3 Refills, Maintenance, 07/12/22 14:01:00 EDT, Solution, [facility] #[id number], Partial fill upon patient request if the prescription is for a schedule II opio... Start Date: 07/12/22 Status: Ordered Vitamin D3 2000 intl units oral capsule 1 capsule = 2,000 International_Units, By Mouth, Daily, # 60 capsule, 2 Refills, Maintenance, 07/17/22 16:56:00 EDT, Capsule, [facility][id number], Partial fill upon patient request if the [...] Confirmed Active DMII Confirmed Active 1DrRyder Wade [phone], Norma. Dx 06/07/09 Results Orders for Microbiology Reports Name Date Blood Culture 12/23/22 Blood Culture #2 12/23/22 Microbiology Reports TEST:Blood Culture, Second Order STATUS:Unauthenticated BODY SITE: SOURCE:Blood COLLECTED DATE/TIME:12/23/22 9:08 AM Blood Culture, Second Order SPECIMEN DESCRIPTION : BLOOD L FOREARM SPECIAL REQUESTS : NONE REPORT STATUS : PRELIMINARY REPORT TEST:Blood Culture STATUS:Unauthenticated BODY SITE: SOURCE:Blood COLLECTED DATE/TIME:12/23/22 8:30 AM Blood Culture SPECIMEN DESCRIPTION : BLOOD L AC SPECIAL REQUESTS : NONE REPORT STATUS : PRELIMINARY REPORT Radiology Reports * Exam Date Time Procedure Performing Provider Status 12/23/22 1:[address] Soft Tissue Neck W/ Contrast Titus Nolan; Auth (Verified) Notes: (CT Soft Tissue Neck W/ Contrast) Reason For Exam: Abscess/Inflammation RESULT: CT Soft Tissue Neck W/ Contrast CT Soft Tissue Neck W/ Contrast INDICATION/CLINICAL QUESTION: Hx of Present Illness: Patient reports back pain, and headache ongoing for approximately two weeks without resolution. Crusty eyes when she woke up this morning, historyof retropharyngeal abscess; Reason: Abscess Inflammation; Clinical Question(s): Abscess / Abscess. TECHNIQUE: Spiral CT neck with IV contrast formatted in 3 planes. 100 cc of Omnipaque 300 was administered intravenously. Weight-based protocol using automatic tube modulation was used to optimize exposure parameters. CTDIvol Body: 20.60 mGy, DLP Body: 657 mGy*cm. COMPARISON: Multiple priors, most recent CT soft tissue neck 11/17/2022 FINDINGS: Director Of Restaurants View Findings, Lines and Tubes: None. Intracranial structures: Visualized portions are unremarkable. Orbits: Visualized portions are unremarkable. Paranasal sinuses and mastoids: Visualized portions are clear. Mucosal surfaces: Mucosal surfaces appear normal and symmetric, including the pharynx, larynx, and visualized portions of the upper trachea and esophagus. Superficial and deep neck spaces: No mass, fluid collection, or inflammatory change. Cervical lymph nodes: Scattered prominent cervical lymph nodes bilaterally with the largest measuring approximately 1.0 cm in short axis dimension. Several prominent right supraclavicular lymph nodes. No mediastinal lymphadenopathy. Salivary glands: The parotid glands and submandibular glands are normal. Thyroid gland: Normal CT appearance Vascular structures: Unremarkable. Upper chest: The upper lungs are clear. The upper mediastinum is unremarkable. Bones and teeth: No acute abnormalities. IMPRESSION: Prominent bilateral cervical and right supraclavicular lymph nodes most consistent with inflammatory reaction, possibly related to a viral syndrome. Otherwise normal examination. I have personally reviewed the images and I agree with this report. WSN: [id number] Ordering Physician: Rachelle Maguire Dictated By: Sylvia Mack MD Dictated Date/Time: 12/23/22 2:06 pm Reviewed By: Jose L Gomez MD Signed By: Jose L Gomez MD Signed Date/Time: 12/23/22 2:11 pm Transcribed By: JACOB Transcribed Date/Time: 12/23/22 1:41 pm * Exam Date Time Procedure Performing Provider Status 12/23/22 9:32 AM Chest Portable Haylee Espinoza; Auth (Verified) Notes: (Chest Portable) Reason For Exam: Chest Pain;Other: RESULT: Chest Portable Chest Portable Hx of Present Illness: Patient reports back pain, and headache ongoing for approximately two weeks without resolution. Crusty eyes when she woke up this morning.; Reason: Other:; Chest Pain; ClinicalQuestion(s): CHF COMPARISON: 11/27/2022. FINDINGS: LINES AND TUBES: None. LUNGS AND PLEURA: No focal consolidation. Mild pulmonary vascular congestion. Interval resolution of right minor fissural fluid. No significant pleural effusion. No pneumothorax. HEART, MEDIASTINUM AND MARY: Unchanged cardiomediastinal silhouette. BONES AND SOFT TISSUES: No acute abnormality. IMPRESSION: Mild pulmonary vascular congestion. WSN: [id number] Ordering Physician: Rachelle Maguire Dictated By: Josie Hartman MD Dictated Date/Time: 12/23/22 9:56 am Reviewed By: Josie Hartman MD Signed By: Josie Hartman MD Signed Date/Time: 12/23/22 9:56 am Transcribed By: JACOB Transcribed Date/Time: 12/23/22 9:53 am Vital Signs Most recent to oldest [Reference Range]: 1 2 3 Oxygen Saturation [94-100 %] 95 % (12/23/22 2:14 PM) 93 % *L* (12/23/22 12:02 PM) 95 % (12/23/22 8:30 AM) Pulse Rate [55-90 bpm] 92 bpm *H* (12/23/22 2:14 PM) 98 bpm *H* (12/23/22 12:02 PM) 105 bpm *H* (12/23/22 7:48 AM) Blood Pressure [90-138/55-84 mm Hg] 125/67mm Hg (12/23/22 2:14 PM) 111/62mm Hg (12/23/22 12:02 PM) 134/81mm Hg (12/23/22 7:48 AM) Respiratory Rate [16-30 br/min] 20 br/min (12/23/22 2:14 PM) 20 br/min (12/23/22 12:02 PM) 27 br/min (12/23/22 7:48 AM) Temperature [96.8-100.4 DegF] 98.3 DegF (12/23/22 2:14 PM) 98.7 DegF (12/23/22 12:02 PM) 99.2 DegF (12/23/22 7:48 AM) Liters per Minute 3 L/min (12/23/22 2:14 PM) 3 L/min (12/23/22 8:30 AM) Mode of Delivery (Oxygen) Nasal cannula (12/23/22 2:14 PM) Nasal cannula (12/23/22 12:02 PM) Nasal cannula (12/23/22 8:30 AM) Blood pressure sites Arm, left (12/23/22 2:14 PM) Arm, right (12/23/22 12:02 PM) Arm, left (12/23/22 7:48 AM) Temperature Route Oral (12/23/22 2:14 PM) Oral (12/23/22 12:02 PM) Oral (12/23/22 7:48 AM) Social History Social History Type Response Smoking Status Former smoker, quit more than 30 days ago entered on: 06/11/19 Sex EKG study * Event Display: ECG 12-Lead Authored Date: [id number] Please click on pdf link to open report * Event Display: ECG 12-Lead Authored Date: [id number] Ventricular Rate: 96 BPM Atrial Rate: 96 BPM P-R Interval: 126 ms QRS Duration: 82 ms Q-T Interval: 368 ms QTC Calculation(Bazett): 464 ms P [place]: 23 degrees R [place]: 30 degrees T [place]: 51 degrees Normal sinus rhythm Normal ECG When compared with ECG of 28-NOV-2022 16:33, No significant change was found Confirmed by AMAURY ANGEL MD ([id number]) on 12/23/2022 10:46:04 AM [place]: AMAURY ANGEL MD Portable XR Chest Views * [facility] , CIS S: TRANSCRIBE Josie Hartman MD: VERIFY Event Display: Result: Authored Date: [id number] Chest Portable Hx of Present Illness: Patient reports back pain, and headache ongoing for approximately two weeks without resolution. Crusty eyes when she woke up this morning.; Reason: Other:; Chest Pain; ClinicalQuestion(s): CHF COMPARISON: 11/27/2022. FINDINGS: LINES AND TUBES: None. LUNGS AND PLEURA: No focal consolidation. Mild pulmonary vascular congestion. Interval resolution of right minor fissural fluid. No significant pleural effusion. No pneumothorax. HEART, MEDIASTINUM AND MARY: Unchanged cardiomediastinal silhouette. BONES AND SOFT TISSUES: No acute abnormality. IMPRESSION: Mild pulmonary vascular congestion. WSN: [id number] Ordering Physician: Rachelle Maguire Dictated By: Josie Hartman MD Dictated Date/Time: 12/23/22 9:56 am Reviewed By: Josie Hartman MD Signed By: Josie Hartman MD Signed Date/Time: 12/23/22 9:56 am Transcribed By: JACOB Transcribed Date/Time: 12/23/22 9:[address] Neck W contrast IV * [facility] , CIS S: TRANSCRIBE Sylvia Mack MD: Jose L Perez MD: VERIFY Event Display: Result: Authored Date: [id number] CT Soft Tissue Neck W/ Contrast INDICATION/CLINICAL QUESTION: Hx of Present Illness: Patient reports back pain, and headache ongoing for approximately two weeks without resolution. Crusty eyes when she woke up this morning, historyof retropharyngeal abscess; Reason: Abscess Inflammation; Clinical Question(s): Abscess / Abscess. TECHNIQUE: Spiral CT neck with IV contrast formatted in 3 planes. 100 cc of Omnipaque 300 was administered intravenously. Weight-based protocol using automatic tube modulation was used to optimize exposure parameters. CTDIvol Body: 20.60 mGy, DLP Body: 657 mGy*cm. COMPARISON: Multiple priors, most recent CT soft tissue neck 11/17/2022 FINDINGS: Director Of Restaurants View Findings, Lines and Tubes: None. Intracranial structures: Visualized portions are unremarkable. Orbits: Visualized portions are unremarkable. Paranasal sinuses and mastoids: Visualized portions are clear. Mucosal surfaces: Mucosal surfaces appear normal and symmetric, including the pharynx, larynx, and visualized portions of the upper trachea and esophagus. Superficial and deep neck spaces: No mass, fluid collection, or inflammatory change. Cervical lymph nodes: Scattered prominent cervical lymph nodes bilaterally with the largest measuring approximately 1.0 cm in short axis dimension. Several prominent right supraclavicular lymph nodes. No mediastinal lymphadenopathy. Salivary glands: The parotid glands and submandibular glands are normal. Thyroid gland: Normal CT appearance Vascular structures: Unremarkable. Upper chest: The upper lungs are clear. The upper mediastinum is unremarkable. Bones and teeth: No acute abnormalities. IMPRESSION: Prominent bilateral cervical and right supraclavicular lymph nodes most consistent with inflammatory reaction, possibly related to a viral syndrome. Otherwise normal examination. I have personally reviewed the images and I agree with this report. WSN: [id number] Ordering Physician: Rachelle Maguire Dictated By: Sylvia Mack MD Dictated Date/Time: 12/23/22 2:06 pm Reviewed By: Jose L Gomez MD Signed By: Jose L Gomez MD Signed Date/Time: 12/23/22 2:11 pm Transcribed By: JACOB Transcribed Date/Time: 12/23/22 1:41 pm Patient Care team information Care Team Personnel Name: Jayna Sandhu RN Position: [facility] RN Member Role: Primary Care Nurse Name: Maty Valencia RN Position: [facility] RN Member Role: Primary Care Nurse Name: Roger Peña RN Position: [facility] RN Supv Member Role: Primary Care Nurse Name: Mihir Jackson RN Position: [facility] RN Member Role: Primary Care Nurse Name: Tessy Jaramillo RN Position: [facility] RN Member Role: Primary Care Nurse Name: Danya Roman RN Position: [facility] AMB Nurse Member Role: Primary Care Nurse Name: Ashley Brownlee RN Position: [facility] ED RN W/OE and Tasks Member Role: Primary Care Nurse Name: Becca Enrique RN Position: [facility] RN Member Role: Primary Care Nurse Name: Elma Caruso (INSTR) Position: [facility] RN Member Role: Primary Care Nurse Name: Amanda Huerta RN Position: [facility] RN Member Role: Primary Care Nurse Name: Yessica Stock Position: [facility] RN Member Role: Primary Care Nurse Name: Hazel Valadez DO Position: [facility] Resident Member Role: PCP Address: Address: [address] [facility] [place] [place] [address]- Name: Radha Bravo RN Position: [facility] RN Member Role: Primary Care Nurse Name: Juli Calles RN Position: [facility] RN Member Role: Primary Care Nurse Name: Ivory Winters Position: [facility] ED TA [facility] Member Role: Account Support Manager Name: Rachelle Maguire DO Position: [facility] Resident Member Role: ED Resident Address: Address: [address] [facility] [address] Name: Lindsey Miramontes Position: [facility] ED RN W/OE and Tasks Name: Bianca Duarte RN Position: [facility] ED RN W/OE and Tasks Member Role: Patient Care Provider Name: Bobbi Bird MD Position: [facility] ED Medicine MD Member Role: Admitting Physician Address: Address: [address] [place] [address] [place] [address]- Care Team Related Persons Name: ZULEIMA MCKEON Address: [place] [address] Name: LUCITA TEMPLE Address: home Name: LARA TEMPLE Name: JUSTIN HINES
--- OUTSIDE RECORDS SUMMARY | 2024-04-04 10:14 | XMS_ITS | Continuity of Care Document ---
Author Organization [facility] Address [address] [place] [address]- Care Team Providers Care Lapel Stitcher Name Role Phone Joey Steele MD Primary Care Physician Encounter [facility] Date(s): 10/15/20 - 11/14/20 [facility] [address] [place], [place] [address] [[email or web address] Allergies, Adverse Reactions, Alerts Substance Reaction Severity [...] Reason: Med Not Available 2Result Comment: [10/30/2014] [id number] 3Admin Note: VIS GIVEN DATED: 04/29/12 4Admin Note: vis given 05/23/11 5Admin Note: VIS GIVEN-DATED 06/07/10 6Admin Note: vis give dated 08/03/09 7Admin Note: VIS GIVEN VIS DATE 05/08/06 Medications albuterol 0.083% inhalation solution 3 mL = 2.5 mg, Inhalation, Every 6 hours, # 360 mL, 11 Refills, Maintenance, 08/29/20 20:48:00 EST,Solution, [facility], 152, cm, 08/13/20 13:28:00 EDT, Height, 175.5, kg, 08/09/20 0:18:00 EDT, Dry Weight Start Date: 08/29/20 Stop Date: 08/24/21 Status: Ordered albuterol CFC free 90 mcg/inh inhalation aerosol 2, puffs, Inhalation, 4 times a day, PRN, FOR WHEEZING AND SHORTNESS OF BREATH, # 1 each, Refills 11, Tot. Refills 11, Maintenance, 08/29/20 20:48:00 EST, Route to Pharmacy Electronically, [id number], [facility]... Start Date: 08/29/20 Stop Date: 08/24/21 [...] Refills, Maintenance, 10/14/20 15:08:00 EST, EC Capsule, [facility] #[id number], Partial fill upon patient request if the prescription is fora schedule II opioid drug., 152, cm, 08/13/20 13:28... Start Date: 10/14/20 Status: Ordered furosemide 40 mg oral tablet 40 mg, 1, tablet, By Mouth, 2 times a day, # 60 tablet, Refills 10, Tot. Refills 10, Maintenance, 10/14/20 15:09:00 EST, Route to Pharmacy Electronically, [facility] #[id number], 152, cm, 08/13/20 13:28:00 EDT, Height, 175.5, kg, 08/09/20 0:18:00... Start Date: 10/14/20 Stop Date: 09/09/21 Status: Ordered metFORMIN 1000 mg oral tablet 1 tablet = 1,000 mg, By Mouth, 2 times a day, takes once daily for 2 weeks, then increase to BID, #60 tablet, 11 Refills, Maintenance, 10/14/20 15:09:00 EST, Tablet, [facility] #[id number], 152, cm, 08/13/20 13:28:00 EDT, Height, 175.5, [...] 10 Refills, Maintenance, 10/14/20 15:09:00 EST, Tablet, [facility] #[id number], 152, cm, 08/13/20 13:28:00 EDT, Height, 175.5, kg, 08/09/20 0:18:00 EDT, Dry Weight Start Date: 10/14/20 Status: Ordered Vitamin D3 2000 intl units oral capsule 1 capsule = 2,000 International_Units, By Mouth, Daily, # 60 capsule, 2 Refills, Maintenance, 11/02/20 10:14:00 EST, Capsule, [facility] #[id number], Partial fill upon patient request if the [...] CPAP(Confirmed) Active DMII(Confirmed) Active 1Dr. Tunde Wade [phone], Norma. Dx 06/07/09 Social History Social History Type Response Smoking Status Former smoker, quit more than 30 days ago entered on: 06/11/19 Sex
--- OUTSIDE RECORDS SUMMARY | 2024-04-04 10:14 | XMS_ITS | Continuity of Care Document ---
Author Organization [facility] Address [address] [place] [address]- Care Team Providers Care Clinical Operations Consultant Name Role Phone Joey Steele MD Primary Care Physician [phone] Encounter [facility] Date(s): 03/30/22 - 04/29/22 [facility] [address] [place], [place] [address] Allergies, Adverse Reactions, Alerts Substance Reaction Severity [...] influenza virus vaccine, inactivated 6 02/06/11 Gi ewrin influenza virus vaccine, inactivated 10/06/10 Jaciel rded influenza virus vaccine, inactivated 08/10/09 Jaciel rded influenza virus vaccine, inactivated 09/03/07 Jaciel rded pneumococcal 23-valent vaccine 7 06/30/11 Given tetanus/diphtheria/pertussis, acel(Tdap) 10/06/10 Recorded diphtheria-tetanus toxoids (DT) 8 06/15/09 Given tetanus-diphtheria toxoids (Td) 12/23/08 Recorded 1Result Comment: in error 2Early/Late Reason: Med Not Available 3Result Comment: [10/30/2014] [id number] 4Admin Note: VIS GIVEN DATED: 04/29/12 5Admin Note: vis given 05/23/11 6Admin Note: VIS GIVEN-DATED 06/07/10 7Admin Note: vis give dated 08/03/09 8Admin Note: VIS GIVEN VIS DATE 05/08/06 Medications albuterol 0.083% inhalation solution 3 mL = 2.5 mg, Inhalation, Every 6 hours, # 360 mL, 11 Refills, Maintenance, 08/29/20 20:48:00 EST,Solution, [facility], 152, cm, 08/13/20 13:28:00 EDT, Height, 175.5, kg, 08/09/20 0:18:00 EDT, Dry Weight Start Date: 08/29/20 Stop Date: 08/24/21 Status: Ordered albuterol CFC free 90 mcg/inh inhalation aerosol 2, puffs, Inhalation, 4 times a day, PRN, FOR WHEEZING AND SHORTNESS OF BREATH, # 1 each, Refills 5, Tot. Refills 5, Maintenance, 08/24/21 20:48:00 EDT, Route to Pharmacy Electronically, [id number], [facility][id number]... Start Date: 08/24/21 Stop Date: 02/20/22 Status: Ordered duloxetine 60 mg oral enteric coated capsule 1 capsule = 60 mg, By Mouth, Daily, # 30 capsule, 10 Refills, Maintenance, 10/14/20 15:08:00 EST, EC Capsule, [facility] #[id number], Partial fill upon patient request if the prescription is fora schedule II opioid drug., 152, cm, 08/13/20 13:28... Start Date: 10/14/20 Status: Ordered furosemide 40 mg oral tablet 40 mg, 1, tablet, By Mouth, 2 times a day, # 180 tablet, Refills 11, Tot. Refills 11, Maintenance, 01/23/22 17:08:00 EDT, Route to Pharmacy Electronically, [facility] #[id number], 152, cm, 06/17/21 8:41:00 EDT, Height, 175.5, kg, 08/09/20 0:18:00... Start Date: 01/23/22 Stop Date: 01/07/25 Status: Ordered hydrOXYzine hydrochloride 25 mg oral tablet 1 tablet = 25 mg, By Mouth, 4 times a day, PRN for anxiety, # 40 tablet, 1 Refills, Maintenance, 08/28/21 15:25:00 EDT, Tablet, [facility] #[id number], Partial fill upon patient request if the prescription is for a schedule II opioid drug., 152,... Start Date: 08/28/21 Stop Date: 10/27/21 Status: Ordered meloxicam 15 mg oral tablet 1 tablet = 15 mg, By Mouth, Daily, For knee and back pain, # 30 tablet, 2 Refills, Maintenance, 06/17/21 9:06:00 EDT, Tablet, [facility] #[id number], Partial fill upon patient request if the prescription is for a schedule II opioid drug., 152, cm... Start Date: 06/17/21 Status: Ordered metFORMIN 1000 mg oral tablet 1 tablet = 1,000 mg, By Mouth, 2 times a day, # 60 tablet, 11 Refills, Maintenance, 06/17/21 9:12:00 EDT, Tablet, [facility] #[id number], cancel previous metformin scripts, 152, cm, 06/17/21 [...] 10 Refills, Maintenance, 10/14/20 15:09:00 EST, Tablet, [facility] #[id number], 152, cm, 08/13/20 13:28:00 EDT, Height, 175.5, [...] 11 Refills, Maintenance, 04/21/22 12:34:00 EDT, Powder, [facility] #[id number], Partial fill upon patient request if the prescription is for a schedule II opioid drug., 1 puffs... Start Date: 04/21/22 Stop Date: 04/16/23 Status: Ordered Vitamin D3 2000 intl units oral capsule 1 capsule = 2,000 International_Units, By Mouth, Daily, # 60 capsule, 2 Refills, Maintenance, 11/02/20 10:14:00 EST, Capsule, [facility] #[id number], Partial fill upon patient request if the [...] Severe obesity(Confirmed) Active DMII(Confirmed) Active 1DrRyder Wade [phone], Norma. Dx 06/07/09 Social History Social History Type Response Smoking Status Former smoker, quit more than 30 days ago entered on: 06/11/19 Sex
--- OUTSIDE RECORDS SUMMARY | 2024-04-04 10:14 | XMS_ITS | Continuity of Care Document ---
Author Organization [facility] Address [address] [place] [address]- Care Team Providers Care Material Requisitioner Name Role Phone Allyson ARMSTRONG Hazel Primary Care Physician [facility] - 08/26/23 [facility] [address] [place] [address] Allergies, Adverse Reactions, Alerts Substance Reaction [...] Reason: Med Not Available 2Result Comment: [10/30/2014] [id number] 3Admin Note: VIS GIVEN DATED: 04/29/12 4Admin Note: vis given 05/23/11 5Admin Note: VIS GIVEN-DATED 06/07/10 6Admin Note: vis give dated 08/03/09 7Admin Note: VIS GIVEN VIS DATE 05/08/06 Medications albuterol 0.083% inhalation solution 3 mL = 2.5 mg, Inhalation, Every 6 hours, # 360 mL, 11 Refills, Maintenance, 07/17/22 11:50:00 EDT,Solution, [facility] #[id number], 152, cm, 07/12/22 13:07:00 EDT, Height, 175.5, [...] 03/31/23 21:58:00 EDT, Route to Pharmacy Electronically, [facility] #[id number], Partial fill upon patient request if the [...] 01/07/25 17:08:00 EDT, Route to Pharmacy Electronically, [facility] #[id number], 149.86, cm, 02/09/23 15:52:00 EDT, Height, 172.3, kg, 11/26/22 5:4... Start Date: 01/07/25 Stop Date: 12/23/27 Status: Ordered furosemide 40 mg oral tablet 40 mg, 1, tablet, By Mouth, 2 times a day, for 90 days, # 180 tablet, Refills 11, Tot. Refills 11, Hard Stop 01/07/25 17:08:00 EDT, 01/23/22 17:08:00 EDT, Route to Pharmacy Electronically, [facility] #[id number], 152, cm, 06/17/21 8:41:00 EDT, He... Start Date: 01/23/22 Stop Date: 01/07/25 Status: Ordered gabapentin 100 mg oral capsule 100 mg, 1, capsule, By Mouth, 3 times a day, # 90 capsule, Refills 0, Tot. Refills 0, Maintenance, 12/14/22 17:21:00 EST, Route to Pharmacy Electronically, [facility] #[id number], Partial fill upon patient request if the prescription is for a kelly... Start Date: 12/14/22 Status: Ordered ibuprofen 800 mg oral tablet 800 mg, 1, tablet, By Mouth, 3 times a day, for pain with food or milk, # 30 tablet, Refills 0, Tot. Refills 0, Maintenance, 02/09/23 17:06:00 EDT, Route to Pharmacy Electronically, [facility] #[id number], Partial fill upon patient request if th... Start Date: 02/09/23 Status: Ordered metFORMIN 1000 mg oral tablet 1 tablet = 1,000 mg, By Mouth, 2 times a day, # 60 tablet, 11 Refills, Maintenance, 07/12/22 13:42:00 EDT, Tablet, [facility] #[id number], cancel previous metformin scripts, 152, cm, 07/12/22 13:07:00 EDT, Height, 175.5, kg, 08/09/20 0:18:00 EDT,... Start Date: 07/12/22 Status: Ordered multivitamin Multiple Vitamins oral capsule 1 capsule, By Mouth, Daily, # 30 capsule, 0 Refills, Maintenance, 03/23/23 7:59:00 EDT, Capsule, [facility] #[id number], Partial fill upon patient request if the [...] 11 Refills, Maintenance, 04/21/22 12:34:00 EDT, Powder, [facility] #[id number], Partial fill upon patient request if the prescription is for a schedule II opioid drug., 1 puffs... Start Date: 04/21/22 Stop Date: 04/16/23 Status: Ordered Vitamin D3 2000 intl units oral capsule 1 capsule = 2,000 International_Units, By Mouth, Daily, # 60 capsule, 2 Refills, Maintenance, 07/17/22 16:56:00 EDT, Capsule, [facility] #[id number], Partial fill upon patient request if the [...] Confirmed Active DMII Confirmed Active 1DrRyder Wade [phone], Norma. Dx 06/07/09 Social History Social History Type Response Smoking Status Former smoker, quit more than 30 days ago entered on: 06/11/19 Sex Patient Care team information Care Team Personnel Name: Becca Crain RN Position: [facility] RN Member Role: Primary Care Nurse Name: Jayna Sandhu RN Position: S RN Member Role: Primary Care Nurse Name: Maty Valencia RN Position: [facility] RN Member Role: Primary Care Nurse Name: Roger Peña RN Position: [facility] RN Supv Member Role: Primary Care Nurse Name: Mihir Jackson RN Position: S RN Member Role: Primary Care Nurse Name: Danya Roman RN Position: [facility] RN Member Role: Primary Care Nurse Name: Ashley Brownlee RN Position: [facility] ED RN W/OE and Tasks Member Role: Primary Care Nurse Name: Elma Caruso (INSTR) Position: [facility] RN Member Role: Primary Care Nurse Name: Amanda Huerta RN Position: S RN Member Role: Primary Care Nurse Name: Yessica Stock Position: [facility] RN Member Role: Primary Care Nurse Name: Hazel Valadez DO Position: [facility] Resident Member Role: PCP Address: Address: [address] [place] [address] Adult [place], [place] [address] Name: Juli Calles RN Position: [facility] RN Member Role: Primary Care Nurse Care Team Related Persons Name: ZULEIMA MCKEON Address: [place] [address] Name: LUCITA TEMPLE Address: home Name: LARA TEMPLE Name: JUSTIN HINES
--- OUTSIDE RECORDS SUMMARY | 2024-04-04 10:14 | XMS_ITS | Continuity of Care Document ---
Author Organization [facility] Adelfo yasmin Address [address] [place] [address] [address] [place] [address]- Care Team Providers Care Occupational Therapist Rehab Manager Name Role Phone Allyson ARMSTRONG Hazel Primary Care Physician [facility]): 09/10/22 - 10/10/22 [facility] [address] [place] [address]- Allergies, Adverse Reactions, Alerts Substance Reaction Severity [...] Reason: Med Not Available 3Result Comment: [10/30/2014] [id number] 4Admin Note: VIS GIVEN DATED: 04/29/12 5Admin Note: vis given 05/23/11 6Admin Note: VIS GIVEN-DATED 06/07/10 7Admin Note: vis give dated 08/03/09 8Admin Note: VIS GIVEN VIS DATE 05/08/06 Medications albuterol 0.083% inhalation solution 3 mL = 2.5 mg, Inhalation, Every 6 hours, # 360 mL, 11 Refills, Maintenance, 07/17/22 11:50:00 EDT,Solution, [facility] #[id number], 152, cm, 07/12/22 13:07:00 EDT, Height, 175.5, [...] 01/23/22 17:08:00 EDT, Route to Pharmacy Electronically, [facility] #[id number], 152, cm, 06/17/21 8:41:00 EDT, Height, 175.5, kg, 08/09/20 0:18:00... Start Date: 01/23/22 Stop Date: 01/07/25 Status: Ordered gabapentin 100 mg oral capsule 100 mg, 1, capsule, By Mouth, 3 times a day, # 90 capsule, Refills 0, Tot. Refills 0, Maintenance, 07/12/22 14:00:00 EDT, Route to Pharmacy Electronically, [facility] #[id number], Partial fill upon patient request if the prescription is for a kelly... Start Date: 07/12/22 Status: Ordered lisinopril 5 mg oral tablet 5 mg, 1, tablet, By Mouth, Daily, # 30 tablet, Refills 2, Tot. Refills 2, Maintenance, 07/17/22 17:03:00 EDT, Route to Pharmacy Electronically, [facility] #[id number], Please disregard 10mg dosing, 152, cm, 07/12/22 13:07:00 EDT, Height, 175.5, k... Start Date: 07/17/22 Status: Ordered metFORMIN 1000 mg oral tablet 1 tablet = 1,000 mg, By Mouth, 2 times a day, # 60 tablet, 11 Refills, Maintenance, 07/12/22 13:42:00 EDT, Tablet, [facility] #00323, cancel previous metformin scripts, 152, cm, 07/12/22 [...] 09/01/22 15:06:00 EDT, Route to Pharmacy Electronically, [facility] #[id number], Partial... Start Date: 09/01/22 Status: Ordered rolling [...] 11 Refills, Maintenance, 04/21/22 12:34:00 EDT, Powder, [facility] #[id number], Partial fill upon patient request if the prescription is for a schedule II opioid drug., 1 puffs... Start Date: 04/21/22 Stop Date: 04/16/23 Status: Ordered Trulicity Pen 0.75 mg/0.5 mL subcutaneous solution 0.5 mL = 0.75 mg, Subcutaneous Injection, Every week, rotate injection sites, # 2 mL, 3 Refills, Maintenance, 07/12/22 14:01:00 EDT, Solution, [facility] #[id number], Partial fill upon patient request if the prescription is for a schedule II opio... Start Date: 07/12/22 Status: Ordered Vitamin D3 2000 intl units oral capsule 1 capsule = 2,000 International_Units, By Mouth, Daily, # 60 capsule, 2 Refills, Maintenance, 07/17/22 16:56:00 EDT, Capsule, [facility] #57722, Partial fill upon patient request if the [...] Active DMII Confirmed Active 1Dr. Tunde Wade [phone], Norma. Dx 06/07/09 Social History Social History Type Response Smoking Status Former smoker, quit more than 30 days ago entered on: 06/11/19 Sex Patient Care team information Care Team Personnel Name: Maty Valencia RN Position: [facility] RN Member Role: Primary Care Nurse Name: Danya Roman RN Position: [facility] AMB Nurse Member Role: Primary [...] S Resident Member Role: PCP Address: Address: [address] [place] [address] [place] [address]- Name: Juli Calles RN Position: [facility] RN Member Role: Primary Care Nurse Care Team Related Persons Name: ZULEIMA MCKEON Address: [place] [address] Name: LUCITA TEMPLE Address: home [address] [place] [address] Name: TEMPLE, LARA Address: home [address] [place] [address] Name: JUSTIN HINES
--- OUTSIDE RECORDS SUMMARY | 2024-04-04 10:14 | XMS_ITS | Continuity of Care Document ---
Author Organization [facility] Geov[facility] Fry n's Address [address], [address] [place] [address]- Care Team Providers Care Target Trimmer Name Role Phone Hazel Valadez DO Primary Care Physician [facility] 09[facility]23 - 10/07/23 [facility] [address], [address] [place] [address]- Allergies, Adverse Reactions, Alerts Substance Reaction Severity [...] Reason: Med Not Available 2Result Comment: [10/30/2014] [id number] 3Admin Note: VIS GIVEN DATED: 04/29/12 4Admin Note: vis given 05/23/11 5Admin Note: VIS GIVEN-DATED 06/07/10 6Admin Note: vis give dated 08/03/09 7Admin Note: VIS GIVEN VIS DATE 05/08/06 Medications Advair Diskus 250 mcg-50 mcg inhalation powder 1, puffs, Inhalation, 2 times a day, # 28 each, Refills 0, Tot. Refills 0, Maintenance, 09/06/23 14:10:00 EST, Powder, Route to Pharmacy Electronically, [id number], [facility] #[id number], 153, cm, 08/19/23 2:04:00 EDT,... Start Date: 09/06/23 Status: Ordered albuterol 0.083% inhalation solution 3 mL = 2.5 mg, Inhalation, Every 6 hours, # 360 mL, 11 Refills, Maintenance, 09/06/23 8:33:00 EST, Solution, [facility] #[id number], 153, cm, 08/19/23 2:04:00 EDT, Height, 171.8, [...] 01/07/25 17:08:00 EDT, Route to Pharmacy Electronically, [facility] #[id number], 149.86, cm, 02/09/23 15:52:00 EDT, Height, 172.3, kg, 11/26/22 5:4... Start Date: 01/07/25 Stop Date: 12/23/27 Status: Ordered gabapentin 100 mg oral capsule 100 mg, 1, capsule, By Mouth, 3 times a day, # 90 capsule, Refills 0, Tot. Refills 0, Maintenance, 12/14/22 17:21:00 EST, Route to Pharmacy Electronically, [facility] #[id number], Partial fill upon patient request if the prescription is for a kelly... Start Date: 12/14/22 Status: Ordered metFORMIN 1000 mg oral tablet 1 tablet = 1,000 mg, By Mouth, 2 times a day, # 60 tablet, 11 Refills, Maintenance, 09/24/23 9:06:00 EST, Tablet, [facility] #[id number], cancel previous metformin scripts, 153, cm, 09/16/23 13:33:00 EST, Height, 176, kg, 09/16/23 13:33:00 EST, D... Start Date: 09/24/23 Status: Ordered multivitamin Multiple Vitamins oral capsule 1 capsule, By Mouth, Daily, # 30 capsule, 0 Refills, Maintenance, 09/06/23 8:33:00 EST, Capsule, [facility] #[id number], Partial fill upon patient request if the [...] 2 Refills, Maintenance, 09/24/23 9:06:00 EST, Capsule, [facility] #[id number], Partial fill upon patient request if the [...] Confirmed Active DMII Confirmed Active 1DrRyder Wade [phone], Norma. Dx 06/07/09 Social History Social History [...] Care Nurse Name: Ashley Brownlee RN Position: [facility] ED RN W/OE [...] S Resident Member Role: PCP Address: Address: [address] [place] [address] [place] [address]- Name: Juli Calles RN Position: S RN Member Role: Primary Care Nurse Care Team Related Persons Name: ZULEIMA MCKEON Address: [place] [address] Name: ZAYRA STREETER Address: home [address] [address] Name: LUCITA TEMPLE Address: home Name: LARA TEMPLE Address: home [address] [address] Name: JUSTIN HINES
--- OUTSIDE RECORDS SUMMARY | 2024-04-04 10:14 | XMS_ITS | Continuity of Care Document ---
Author Organization [facility] Address [address] [place] [address]- Care Team Providers Care Medical Reimbursement Manager Name Role Phone Allyson ARMSTRONG Hazel Primary Care Physician [phone] [facility]22 - 06/10/22 [facility] [address] [place] [address]- Attending Physician: Not on Staff, Attending MD [...] Reason: Med Not Available 3Result Comment: [10/30/2014] [id number] 4Admin Note: VIS GIVEN DATED: 04/29/12 5Admin Note: vis given 05/23/11 6Admin Note: VIS GIVEN-DATED 06/07/10 7Admin Note: vis give dated 08/03/09 8Admin Note: VIS GIVEN VIS DATE 05/08/06 Medications albuterol 0.083% inhalation solution 3 mL = 2.5 mg, Inhalation, Every 6 hours, # 360 mL, 11 Refills, Maintenance, 08/29/20 20:48:00 EST,Solution, [facility], 152, cm, 08/13/20 13:28:00 EDT, Height, 175.5, kg, 08/09/20 0:18:00 EDT, Dry Weight Start Date: 08/29/20 Stop Date: 08/24/21 Status: Ordered albuterol CFC free 90 mcg/inh inhalation aerosol 2, puffs, Inhalation, 4 times a day, PRN, FOR WHEEZING AND SHORTNESS OF BREATH, # 1 each, Refills 5, Tot. Refills 5, Maintenance, 08/24/21 20:48:00 EDT, Route to Pharmacy Electronically, [id number], [email or web address] #[email or web address]... Start Date: 08/24/21 Stop Date: 02/20/22 Status: Ordered duloxetine 60 mg oral enteric coated capsule 1 capsule = 60 mg, By Mouth, Daily, # 30 capsule, 10 Refills, Maintenance, 10/14/20 15:08:00 EST, EC Capsule, [facility] #[id number], Partial fill upon patient request if the prescription is fora schedule II opioid drug., 152, cm, 08/13/20 13:28... Start Date: 10/14/20 Status: Ordered furosemide 40 mg oral tablet 40 mg, 1, tablet, By Mouth, 2 times a day, # 180 tablet, Refills 11, Tot. Refills 11, Maintenance, 01/23/22 17:08:00 EDT, Route to Pharmacy Electronically, [facility] #[id number], 152, cm, 06/17/21 8:41:00 EDT, Height, 175.5, kg, 08/09/20 0:18:00... Start Date: 01/23/22 Stop Date: 01/07/25 Status: Ordered hydrOXYzine hydrochloride 25 mg oral tablet 1 tablet = 25 mg, By Mouth, 4 times a day, PRN for anxiety, # 40 tablet, 1 Refills, Maintenance, 08/28/21 15:25:00 EDT, Tablet, [facility] #[id number], Partial fill upon patient request if the prescription is for a schedule II opioid drug., 152,... Start Date: 08/28/21 Stop Date: 10/27/21 Status: Ordered meloxicam 15 mg oral tablet 1 tablet = 15 mg, By Mouth, Daily, For knee and back pain, # 30 tablet, 2 Refills, Maintenance, 06/17/21 9:06:00 EDT, Tablet, [email or web address] #[id number], Partial fill upon patient request if the prescription is for a schedule II opioid drug., 152, cm... Start Date: 06/17/21 Status: Ordered metFORMIN 1000 mg oral tablet 1 tablet = 1,000 mg, By Mouth, 2 times a day, # 60 tablet, 11 Refills, Maintenance, 06/17/21 9:12:00 EDT, Tablet, [email or web address] #[email or web address], cancel previous metformin scripts, 152, cm, 06/17/21 [...] 10 Refills, Maintenance, 10/14/20 15:09:00 EST, Tablet, [facility] #[id number], 152, cm, 08/13/20 13:28:00 EDT, Height, 175.5, [...] 11 Refills, Maintenance, 04/21/22 12:34:00 EDT, Powder, [facility] #[id number], Partial fill upon patient request if the prescription is for a schedule II opioid drug., 1 puffs... Start Date: 04/21/22 Stop Date: 04/16/23 Status: Ordered Vitamin D3 2000 intl units oral capsule 1 capsule = 2,000 International_Units, By Mouth, Daily, # 60 capsule, 2 Refills, Maintenance, 11/02/20 10:14:00 EST, Capsule, [email or web address] #[id number], Partial fill upon patient request if the [...] obesity(Confirmed) Active DMII(Confirmed) Active 1Dr. Tunde Wade [phone], Norma. Dx 06/07/09 Social History Social History Type Response Smoking Status Former smoker, quit more than 30 days ago entered on: 06/11/19 Sex
--- OUTSIDE RECORDS SUMMARY | 2024-04-04 10:14 | XMS_ITS | Continuity of Care Document ---
Author Organization [facility] Address [address] [place] [address]- Care Team Providers Care Compensation Specialist Name Role Phone Hazel Valadez DO Primary Care Physician [phone] [facility]18[facility]24 - 02/23/24 [facility] [address] [place] [address]- Attending Physician: Enedina Price NP Admitting Physician: [...] Reason: Med Not Available 2Result Comment: [10/30/2014] [id number] 3Admin Note: VIS GIVEN DATED: 04/29/12 4Admin Note: vis given 05/23/11 5Admin Note: VIS GIVEN-DATED 06/07/10 6Admin Note: vis give dated 08/03/09 7Admin Note: VIS GIVEN VIS DATE 05/08/06 Medications Advair Diskus 250 mcg-50 mcg inhalation powder 1, puffs, Inhalation, 2 times a day, # 28 each, Refills 0, Tot. Refills 0, Maintenance, 09/06/23 14:10:00 EST, Powder, Route to Pharmacy Electronically, [id number], [facility] #[id number], 153, cm, 08/19/23 2:04:00 EDT,... Start Date: 09/06/23 Status: Ordered albuterol 0.083% inhalation solution 3 mL = 2.5 mg, Inhalation, Every 6 hours, # 360 mL, 11 Refills, Maintenance, 09/06/23 8:33:00 EST, Solution, [facility] #[id number], 153, cm, 08/19/23 2:04:00 EDT, Height, 171.8, [...] 12/23/27 17:08:00 EST, Route to Pharmacy Electronically, [facility] #[id number], 153, cm, 12/03/23 14:50:00 EST, Height, 176, kg, 09/16/23 13:33:00 E... Start Date: 12/23/27 Stop Date: 12/07/30 Status: Ordered gabapentin 300 mg oral capsule 300 mg, 1, capsule, By Mouth, 2 times a day, for back pain, # 60 capsule, Refills 5, Tot. Refills 5, Maintenance, 01/24/24 14:15:00 EDT, Route to Pharmacy Electronically, [facility] #[id number],Partial fill upon patient request if the prescripti... Start Date: 01/24/24 Status: Ordered ibuprofen 800 mg oral tablet 800 mg, 1, tablet, By Mouth, 3 times a day, prn pain, take with food, # 45 tablet, Refills 0, Tot. Refills 0, Maintenance, 01/18/24 10:01:00 EDT, Route to Pharmacy Electronically, [facility] #[id number], Partial fill upon patient request if the p... Start Date: 01/18/24 Status: Ordered Insulin Glargine Prefilled Pen 100 units/mL subcutaneous solution = 20 units, Subcutaneous Injection, Daily at bedtime, # 15 mL, 0 Refills, Maintenance, 02/22/24 10:15:00 EDT, [facility], Partial fill upon patient request if the prescription is for a schedule II opioid drug., 153, cm, 01/24/24 13:42:00... Start Date: 02/22/24 Status: Ordered multivitamin Multiple Vitamins oral capsule 1 capsule, By Mouth, Daily, # 30 capsule, 0 Refills, Maintenance, 09/06/23 8:33:00 EST, Capsule, [facility] #[id number], Partial fill upon patient request if the [...] Compound Start Date: 07/24/23 Status: Ordered Pen [place], 32 G x 4 mm BD Ultra [...] 2 Refills, Maintenance, 09/24/23 9:06:00 EST, Capsule, [facility] #[id number], Partial fill upon patient request if the [...] Confirmed Active DMII Confirmed Active 1DrRyder Wade [phone], Norma. Dx 06/07/09 Social History Social History [...] Care Nurse Name: Christiano Rosenbaum RN Position: [facility] RN Member Role: Primary Care Nurse Name: Hema Lyn RN Position: [facility] RN Member Role: Primary Care Nurse Name: Roger Peña RN Position: [facility] RN Supv Member Role: Primary Care Nurse Name: Hira Black RN Position: [facility] RN Member Role: Primary Care Nurse Name: Mihir Jackson RN Position: [facility] RN Member Role: Primary Care Nurse Name: Danya Roman RN Position: [facility] SN RN Member Role: Primary Care Nurse Name: Ashley Brownlee RN Position: [facility] ED RN W/OE and Tasks Member Role: Primary Care Nurse Name: Elma Caruso (INSTR) Position: [facility] RN Member Role: Primary Care Nurse Name: Sowmya Hooks LPN Position: [facility] RN Member Role: Primary Care Nurse Name: Amanda Huerta RN Position: [facility] RN Member Role: Primary Care Nurse Name: Yessica Stock RN Position: [facility] RN Member Role: Primary Care Nurse Name: Hazel Valadez DO Position: [facility] Resident Member Role: PCP Address: Address: [address] [place] [address] [place], [place] [address] Name: Lizzette Barrientos RN Position: [facility] RN Member Role: Primary Care Nurse Name: Nathanael Lawrence RN Position: [facility] RN Member Role: Primary Care Nurse Name: Zoe Falcon RN Position: [facility] RN Member Role: Primary Care Nurse Name: Jayna Escamilla RN Position: [facility] RN Member Role: Primary Care Nurse Name: Juli Calles RN Position: [facility] RN Member Role: Primary Care Nurse Name: Tahmina Choi Position: [facility] RN Member Role: Primary Care Nurse Name: Magdi Gutierrez RN Position: [facility] RN Member Role: Primary Care Nurse Care Team Related Persons Name: ZULEIMA MCKOEN Address: [place] [address] Name: ZAYRA STREETER Address: home [address] [place] [address] Name: LUCITA TEMPLE Address: home Name: LARA TEMPLE Address: [address] [place] [address] Name: JUSTIN HINES
--- OUTSIDE RECORDS SUMMARY | 2024-04-04 10:14 | XMS_ITS | Continuity of Care Document ---
Author Organization [facility] Address [address] [place] [address]- Care Team Providers Care Sprayer Hand Name Role Phone Valadez DO Hazel Primary Care Physician [facility]counter [facility] Date(s): 08/31/22 - 09/30/22 [facility] [address] [place] [address]- Allergies, Adverse Reactions, Alerts Substance Reaction Severity [...] Reason: Med Not Available 3Result Comment: [10/30/2014] [id number] 4Admin Note: VIS GIVEN DATED: 04/29/12 5Admin Note: vis given 05/23/11 6Admin Note: VIS GIVEN-DATED 06/07/10 7Admin Note: vis give dated 08/03/09 8Admin Note: VIS GIVEN VIS DATE 05/08/06 Medications albuterol 0.083% inhalation solution 3 mL = 2.5 mg, Inhalation, Every 6 hours, # 360 mL, 11 Refills, Maintenance, 07/17/22 11:50:00 EDT,Solution, [facility] #[id number], 152, cm, 07/12/22 13:07:00 EDT, Height, 175.5, [...] 01/23/22 17:08:00 EDT, Route to Pharmacy Electronically, [facility] #[id number], 152, cm, 06/17/21 8:41:00 EDT, Height, 175.5, kg, 08/09/20 0:18:00... Start Date: 01/23/22 Stop Date: 01/07/25 Status: Ordered gabapentin 100 mg oral capsule 100 mg, 1, capsule, By Mouth, 3 times a day, # 90 capsule, Refills 0, Tot. Refills 0, Maintenance, 07/12/22 14:00:00 EDT, Route to Pharmacy Electronically, [facility] #[id number], Partial fill upon patient request if the prescription is for a kelly... Start Date: 07/12/22 Status: Ordered lisinopril 5 mg oral tablet 5 mg, 1, tablet, By Mouth, Daily, # 30 tablet, Refills 2, Tot. Refills 2, Maintenance, 07/17/22 17:03:00 EDT, Route to Pharmacy Electronically, [facility] #[id number], Please disregard 10mg dosing, 152, cm, 07/12/22 13:07:00 EDT, Height, 175.5, k... Start Date: 07/17/22 Status: Ordered metFORMIN 1000 mg oral tablet 1 tablet = 1,000 mg, By Mouth, 2 times a day, # 60 tablet, 11 Refills, Maintenance, 07/12/22 13:42:00 EDT, Tablet, [facility] #[id number], cancel previous metformin scripts, 152, cm, 07/12/22 [...] 09/01/22 15:06:00 EDT, Route to Pharmacy Electronically, [facility] #[id number], Partial... Start Date: 09/01/22 Status: Ordered rolling [...] 11 Refills, Maintenance, 04/21/22 12:34:00 EDT, Powder, [facility] #[id number], Partial fill upon patient request if the prescription is for a schedule II opioid drug., 1 puffs... Start Date: 04/21/22 Stop Date: 04/16/23 Status: Ordered Trulicity Pen 0.75 mg/0.5 mL subcutaneous solution 0.5 mL = 0.75 mg, Subcutaneous Injection, Every week, rotate injection sites, # 2 mL, 3 Refills, Maintenance, 07/12/22 14:01:00 EDT, Solution, [facility] #[id number], Partial fill upon patient request if the prescription is for a schedule II opio... Start Date: 07/12/22 Status: Ordered Vitamin D3 2000 intl units oral capsule 1 capsule = 2,000 International_Units, By Mouth, Daily, # 60 capsule, 2 Refills, Maintenance, 07/17/22 16:56:00 EDT, Capsule, [facility] #[id number], Partial fill upon patient request if the [...] Active DMII Confirmed Active 1Dr. Tunde Wade [phone], Norma. Dx 06/07/09 Social History Social History Type Response Smoking Status Former smoker, quit more than 30 days ago entered on: 06/11/19 Sex Patient Care team information Care Team Personnel Name: Maty Valencia RN Position: [facility] RN Member Role: Primary Care Nurse Name: Danya Roman RN Position: [facility] AMB Nurse Member Role: Primary Care Nurse Name: Ashley Brownlee RN Position: [facility] ED RN W/OE and Tasks Member Role: Primary Care Nurse Name: Becca Enrique RN Position: [facility] RN Member Role: Primary Care Nurse Name: Elma Caruso (INSTR) Position: [facility] RN Member Role: Primary Care Nurse Name: Amanda Huerta RN Position: [facility] RN Member Role: Primary Care Nurse Name: Hazel Valadez DO Position: S Resident Member Role: PCP Address: Address: [address] [place] [address] [place] [address]- Name: Juli Calles RN Position: [facility] RN Member Role: Primary Care Nurse Care Team Related Persons Name: ZULEIMA MCKEON Address: [place] [address] Name: LUCITA TEMPLE Address: home [address] [place] [address] Name: LARA TEMPLE Address: home [address] [place] [address] Name: JUSTIN HINES
--- OUTSIDE RECORDS SUMMARY | 2024-04-04 10:14 | XMS_ITS | Continuity of Care Document ---
Author Organization [facility] Address [address] [place] [address]- Care Team Providers Care Acute Care Clinical Nurse Specialist Name Role Phone Hazel Valadez DO Primary Care Physician [facility]counter [facility] Date(s): 09/03/23 - 10/03/23 [facility] [address] [place] [address]- Allergies, Adverse Reactions, Alerts Substance Reaction Severity [...] Reason: Med Not Available 2Result Comment: [10/30/2014] [id number] 3Admin Note: VIS GIVEN DATED: 04/29/12 4Admin Note: vis given 05/23/11 5Admin Note: VIS GIVEN-DATED 06/07/10 6Admin Note: vis give dated 08/03/09 7Admin Note: VIS GIVEN VIS DATE 05/08/06 Medications Advair Diskus 250 mcg-50 mcg inhalation powder 1, puffs, Inhalation, 2 times a day, # 28 each, Refills 0, Tot. Refills 0, Maintenance, 09/06/23 14:10:00 EST, Powder, Route to Pharmacy Electronically, [id number], [facility] #[id number], 153, cm, 08/19/23 2:04:00 EDT,... Start Date: 09/06/23 Status: Ordered albuterol 0.083% inhalation solution 3 mL = 2.5 mg, Inhalation, Every 6 hours, # 360 mL, 11 Refills, Maintenance, 09/06/23 8:33:00 EST, Solution, [facility] #[id number], 153, cm, 08/19/23 2:04:00 EDT, Height, 171.8, [...] 01/07/25 17:08:00 EDT, Route to Pharmacy Electronically, [facility] #[id number], 149.86, cm, 02/09/23 15:52:00 EDT, Height, 172.3, kg, 11/26/22 5:4... Start Date: 01/07/25 Stop Date: 12/23/27 Status: Ordered gabapentin 100 mg oral capsule 100 mg, 1, capsule, By Mouth, 3 times a day, # 90 capsule, Refills 0, Tot. Refills 0, Maintenance, 12/14/22 17:21:00 EST, Route to Pharmacy Electronically, [facility] #[id number], Partial fill upon patient request if the prescription is for a kelly... Start Date: 12/14/22 Status: Ordered metFORMIN 1000 mg oral tablet 1 tablet = 1,000 mg, By Mouth, 2 times a day, # 60 tablet, 11 Refills, Maintenance, 09/24/23 9:06:00 EST, Tablet, [facility] #[id number], cancel previous metformin scripts, 153, cm, 09/16/23 13:33:00 EST, Height, 176, kg, 09/16/23 13:33:00 EST, D... Start Date: 09/24/23 Status: Ordered multivitamin Multiple Vitamins oral capsule 1 capsule, By Mouth, Daily, # 30 capsule, 0 Refills, Maintenance, 09/06/23 8:33:00 EST, Capsule, [facility] #[id number], Partial fill upon patient request if the [...] 2 Refills, Maintenance, 09/24/23 9:06:00 EST, Capsule, [facility] #[id number], Partial fill upon patient request if the [...] Confirmed Active DMII Confirmed Active 1DrRyder Wade [phone], Norma. Dx 06/07/09 Social History Social History [...] Name: Roger Peña RN Position: [facility] RN Supv Member Role: Primary Care Nurse Name: Mihir Jackson RN Position: [facility] RN Member Role: Primary Care Nurse Name: Danya Roman RN Position: [facility] SN RN Member Role: Primary Care Nurse Name: Kem RNAshley Position: [facility] ED RN W/OE and Tasks Member Role: Primary Care Nurse Name: Elma Caruso (INSTR) Position: [facility] RN Member Role: Primary Care Nurse Name: Amanda Huerta RN Position: [facility] RN Member Role: Primary Care Nurse Name: Yessica Stock Position: S RN Member Role: Primary Care Nurse Name: Hazel Valadez DO Position: [facility] Resident Member Role: PCP Address: Address: [address] [place] [address] [place] [address]- Name: Juli Calles RN Position: [facility] RN Member Role: Primary Care Nurse Care Team Related Persons Name: ZULEIMA MCKEON Address: [place] [address] Name: ZAYRA STREETER Address: home [address] [address] Name: LUCITA TEMPLE Address: home Name: LARA TEMPLE Address: home [address] [address] Name: JUSITN HINES
--- OUTSIDE RECORDS SUMMARY | 2024-04-04 10:14 | XMS_ITS | Continuity of Care Document ---
Author Organization [facility] ter Address [address] [place] [id number]- Care Team Providers Care Shell Mold Bonder Name Role Phone Joey Steele MD Primary Care Physician Encounter [facility] Date(s): 03/11/21 - 03/12/[address] [address]- Encounter Diagnosis Gout flare(Final) - 03/12/21 Diabetes(Final) - 03/12/21 Wrist pain(Final) - 03/12/21 Discharge Disposition: A-D/C Home Attending Physician: Jose L Wynn MD Admitting Physician: Jose L Wynn MD Referring Physician: Not on Staff, Referring [...] Reason: Med Not Available 2Result Comment: [10/30/2014] [id number] 3Admin Note: VIS GIVEN DATED: 04/29/12 4Admin [...] 08/29/20 20:48:00 EST, Route to Pharmacy Electronically, [id number]... Start Date: 08/29/20 Stop Date: 08/24/21 Status: Ordered albuterol CFC free 90 mcg/inh inhalation aerosol 2, puffs, Inhalation, 4 times a day, PRN, FOR WHEEZING AND SHORTNESS OF BREATH, # 1 each, Refills 5, Tot. Refills 5, Maintenance, 08/24/21 20:48:00 EDT, Route to Pharmacy Electronically, [id number], [facility] #[id number]... Start Date: 08/24/21 Stop Date: 02/20/22 [...] Refills, Maintenance, 10/14/20 15:08:00 EST, EC Capsule, [facility] #21861, Partial fill upon patient request if the prescription is fora schedule II opioid drug., 152, cm, 08/13/20 13:28... Start Date: 10/14/20 Status: Ordered furosemide 40 mg oral tablet 40 mg, 1, tablet, By Mouth, 2 times a day, # 60 tablet, Refills 10, Tot. Refills 10, Maintenance, 10/14/20 15:09:00 EST, Route to Pharmacy Electronically, [facility] #[id number], 152, cm, 08/13/20 13:28:00 EDT, Height, 175.5, kg, 08/09/20 0:18:00... Start Date: 10/14/20 Stop Date: 09/09/21 Status: Ordered indomethacin 50 mg oral capsule 1 capsule = 50 mg, By Mouth, 3 times a day, PRN for gout pain, # 15 capsule, 0 Refills, Maintenance, 03/12/21 1:29:00 EDT, Capsule, [facility] #[id number], Partial fill upon patient request if the prescription is for a schedule II opioid drug., 1... Start Date: 03/12/21 Stop Date: 03/17/21 Status: Ordered metFORMIN 1000 mg oral tablet 1 tablet = 1,000 mg, By Mouth, 2 times a day, takes once daily for 2 weeks, then increase to BID, #60 tablet, 11 Refills, Maintenance, 10/14/20 15:09:00 EST, Tablet, [facility] #[id number], 152, cm, 08/13/20 13:28:00 EDT, Height, 175.5, kg, 07/29... Start Date: 10/14/20 Status: Ordered morphine 15 mg oral tablet, immediate release 1 tablet = 15 mg, By Mouth, Every 4 hours, PRN as needed for pain, # 10 tablet, 0 Refills, Maintenance, 03/12/21 1:49:00 EDT, Tablet, [facility] #[id number], Partial fill upon patient request, 152, cm, 08/13/20 13:28:00 EDT, Height, 175.5, kg, 10... Start Date: 03/12/21 Status: Ordered MorPHINE Immediate Release Tablet 15 mg, Tablet, By Mouth, Once, STAT, 03/11/21 21:13:00 EDT, Stop date 03/11/21 21:13:00 EDT Start Date: 03/11/21 Stop Date: 03/11/21 Status: Completed Oxygen Supplies See Instructions, # 1 application, [...] 10 Refills, Maintenance, 10/14/20 15:09:00 EST, Tablet, [facility] #[id number], 152, cm, 08/13/20 13:28:00 EDT, Height, 175.5, kg, 08/09/20 0:18:00 EDT, Dry Weight Start Date: 10/14/20 Status: Ordered Vitamin D3 2000 intl units oral capsule 1 capsule = 2,000 International_Units, By Mouth, Daily, # 60 capsule, 2 Refills, Maintenance, 11/02/20 10:14:00 EST, Capsule, [facility] #[id number], Partial fill upon patient request if the [...] not on home CPAP(Confirmed) Active DMII(Confirmed) Active 1Dcolby Wade [phone], Norma. Dx 06/07/09 Results Radiology Reports * Exam Date Time Procedure Performing Provider Status 03/11/21 3:36 PM Hand Min 3 Views Left Ezra Hayes; Auth (Verified) Notes: (Hand Min 3 Views Left) Reason For Exam: with Pain;Trauma RESULT: Hand Min 3 Views Left Hand Min 3 Views Left, 3 views Hx of Present Illness: Left wrist pain swelling x 3 days.; Reason: Trauma; with Pain; Clinical Question(s): Fracture; Special Instructions: This is a protocol film and radiologist should call any findings to the Charge Nurse COMPARISON: Left wrist, similar day FINDINGS: No fractures or bone lesions. Well-defined bony density again noted anterior to the stomach appearschronic. No arthritic changes. No radiopaque foreign matter or soft tissue gas. IMPRESSION: No acute bony or articular findings. WSN: [id number] Ordering Physician: Venkat Jones Dictated By: Delmer Rai MD Dictated Date/Time: 03/11/21 3:57 pm Reviewed By: Delmer Rai MD Signed By: Delmer Rai MD Signed Date/Time: 03/11/21 3:57 pm Transcribed By: JACOB Transcribed Date/Time: 03/11/21 3:52 pm * Exam Date Time Procedure Performing Provider Status 03/11/21 3:36 PM Chest 2 Views Frontal and Lat Elizabet Watts; Auth (Verified) Notes: (Chest 2 Views Frontal and Lat) Reason For Exam: Chest Pain;Other: RESULT: Chest 2 Views Frontal and Lat Chest 2 Views Frontal and Lat Hx of Present Illness: Left wrist pain swelling x 3 days.; Reason: Other:; Chest Pain; Clinical Question(s): Other: COMPARISON: Multiple priors most recent 08/08/2020. FINDINGS: LINES AND TUBES: None. LUNGS AND PLEURA: Lungs are well-expanded and clear. No pleural effusion. No pneumothorax. HEART, MEDIASTINUM AND MARY: Heart is normal in size. Normal upper mediastinal and hilar contour. BONES AND SOFT TISSUES: No acute abnormality. IMPRESSION: No acute abnormality. WSN: [id number] Ordering Physician: Venkat Jones Dictated By: Hong Houston MD Dictated Date/Time: 03/11/21 3:52 pm Reviewed By: Hong Houston MD Signed By: Hong Houston MD Signed Date/Time: 03/11/21 3:52 pm Transcribed By: JACOB Transcribed Date/Time: 03/11/21 3:49 pm * Exam Date Time Procedure Performing Provider Status 03/11/21 3:36 PM Wrist Comp Min 3 Views Left Elizabet Hayes; Auth (Verified) Notes: (Wrist Comp Min 3 Views Left) Reason For Exam: with Pain;Trauma RESULT: Wrist Comp Min 3 Views Left Wrist Comp Min 3 Views Left CLINICAL INDICATION: Hx left wrist pain and swelling. TECHNIQUE: AP, oblique, lateral, and navicular views. COMPARISON: None. FINDINGS: There is no fracture. There is no focal bony lesion. Intact radial and ulnar styloid processes. There is a 3 mm focus of calcification or bone immediately anterior to the wrist joint seen on the lateral view. IMPRESSION: 1. There is no bony abnormality. 2. There is no joint abnormality. 3. There is a smooth elongated focus of calcification or bone immediately anterior to the wrist joint. Etiology, chronicity, significance uncertain. This does not represent an acute fracture fragment. WSN: [id number] Ordering Physician: Venkat Jones Dictated By: Wilfredo Leggett MD Dictated Date/Time: 03/11/21 3:48 pm Reviewed By: Wilfredo Leggett MD Signed By: Wilfredo Leggett MD Signed Date/Time: 03/11/21 3:48 pm Transcribed By: JACOB Transcribed Date/Time: 03/11/21 3:46 pm Vital Signs Most recent to oldest [Reference Range]: 1 2 3 Oxygen Saturation [94-100 %] 98 % (03/12/21 2:00 AM) 100 % (03/11/21 8:26 PM) 95 % (03/11/21 4:16 PM) Pulse Rate [55-90 bpm] 62 bpm (03/12/21 2:00 AM) 65 bpm (03/11/21 8:26 PM) 84 bpm (03/11/21 4:16 PM) Blood Pressure [90-138/55-84 mm Hg] 150/80mm Hg *H* (03/12/21 2:00 AM) 136/78mm Hg (03/11/21 8:26 PM) 138/94mm Hg (03/11/21 4:16 PM) Respiratory Rate [16-30 br/min] 18 br/min (03/12/21 2:00 AM) 16 br/min (03/11/21 10:36 PM) 16 br/min (03/11/21 9:36 PM) Temperature [96.8-100.4 DegF] 98.0 DegF (03/12/21 2:00 AM) 98.4 DegF (03/11/21 4:16 PM) 98.6 DegF (03/11/21 1:13 PM) Liters per Minute 2 L/min (03/11/21 4:16 PM) Mode of Delivery (Oxygen) Room air (03/12/21 2:00 AM) Room air (03/11/21 8:26 PM) Nasal cannula (03/11/21 4:16 PM) Blood pressure sites Arm, right (03/12/21 2:00 AM) Arm, right (03/11/21 8:26 PM) Arm, right (03/11/21 4:16 PM) Temperature Route Oral (03/12/21 2:00 AM) Oral (03/11/21 4:16 PM) Oral (03/11/21 1:13 PM) Social History Social History Type Response Smoking Status Former smoker, quit more than 30 days ago entered on: 06/11/19 Sex
--- OUTSIDE RECORDS SUMMARY | 2024-04-04 10:15 | XMS_ITS | Continuity of Care Document ---
Author Organization [facility] Address [address] [place] [address]- Care Team Providers Care Electrician Rectifier Maintenance Name Role Phone Valadez DO Hazel Primary Care Physician [facility] Date[facility]s): 08/31/22 - 09/30/22 [facility] [address] [place] [address]- Allergies, Adverse Reactions, Alerts Substance Reaction Severity [...] influenza virus vaccine, inactivated 5 09/14/11 Gi ewrin influenza virus vaccine, inactivated 6 02/06/11 Gi erwin influenza virus vaccine, inactivated 10/06/10 Jaciel rded influenza virus vaccine, inactivated 08/10/09 Jaciel rded influenza virus vaccine, inactivated 09/03/07 Jaciel rded pneumococcal 23-valent vaccine 7 06/30/11 Given tetanus/diphtheria/pertussis, acel(Tdap) 10/06/10 Recorded diphtheria-tetanus toxoids (DT) 8 06/15/09 Given tetanus-diphtheria toxoids (Td) 12/23/08 Recorded 1Result Comment: in error 2Early/Late Reason: Med Not Available 3Result Comment: [10/30/2014] [id number] 4Admin Note: VIS GIVEN DATED: 04/29/12 5Admin Note: vis given 05/23/11 6Admin Note: VIS GIVEN-DATED 06/07/10 7Admin Note: vis give dated 08/03/09 8Admin Note: VIS GIVEN VIS DATE 05/08/06 Medications albuterol 0.083% inhalation solution 3 mL = 2.5 mg, Inhalation, Every 6 hours, # 360 mL, 11 Refills, Maintenance, 07/17/22 11:50:00 EDT,Solution, [facility] #[id number], 152, cm, 07/12/22 13:07:00 EDT, Height, 175.5, [...] 01/23/22 17:08:00 EDT, Route to Pharmacy Electronically, [facility] #[id number], 152, cm, 06/17/21 8:41:00 EDT, Height, 175.5, kg, 08/09/20 0:18:00... Start Date: 01/23/22 Stop Date: 01/07/25 Status: Ordered gabapentin 100 mg oral capsule 100 mg, 1, capsule, By Mouth, 3 times a day, # 90 capsule, Refills 0, Tot. Refills 0, Maintenance, 07/12/22 14:00:00 EDT, Route to Pharmacy Electronically, [facility] #[id number], Partial fill upon patient request if the prescription is for a kelly... Start Date: 07/12/22 Status: Ordered lisinopril 5 mg oral tablet 5 mg, 1, tablet, By Mouth, Daily, # 30 tablet, Refills 2, Tot. Refills 2, Maintenance, 07/17/22 17:03:00 EDT, Route to Pharmacy Electronically, [facility] #[id number], Please disregard 10mg dosing, 152, cm, 07/12/22 13:07:00 EDT, Height, 175.5, k... Start Date: 07/17/22 Status: Ordered metFORMIN 1000 mg oral tablet 1 tablet = 1,000 mg, By Mouth, 2 times a day, # 60 tablet, 11 Refills, Maintenance, 07/12/22 13:42:00 EDT, Tablet, [facility] #65633, cancel previous metformin scripts, 152, cm, 07/12/22 [...] 09/01/22 15:06:00 EDT, Route to Pharmacy Electronically, [facility] #[id number], Partial... Start Date: 09/01/22 Status: Ordered rolling [...] 11 Refills, Maintenance, 04/21/22 12:34:00 EDT, Powder, [facility] #98444, Partial fill upon patient request if the prescription is for a schedule II opioid drug., 1 puffs... Start Date: 04/21/22 Stop Date: 04/16/23 Status: Ordered Trulicity Pen 0.75 mg/0.5 mL subcutaneous solution 0.5 mL = 0.75 mg, Subcutaneous Injection, Every week, rotate injection sites, # 2 mL, 3 Refills, Maintenance, 07/12/22 14:01:00 EDT, Solution, [facility] #55406, Partial fill upon patient request if the prescription is for a schedule II opio... Start Date: 07/12/22 Status: Ordered Vitamin D3 2000 intl units oral capsule 1 capsule = 2,000 International_Units, By Mouth, Daily, # 60 capsule, 2 Refills, Maintenance, 07/17/22 16:56:00 EDT, Capsule, [facility] #77527, Partial fill upon patient request if the [...] Active DMII Confirmed Active 1Dr. Tunde Wade [phone], Norma. Dx 06/07/09 Social History Social History Type Response Smoking Status Former smoker, quit more than 30 days ago entered on: 06/11/19 Sex Patient Care team information Care Team Personnel Name: Maty Valencia RN Position: [facility] RN Member Role: Primary Care Nurse Name: Danya Roman RN Position: [facility] AMB Nurse Member Role: Primary Care Nurse Name: Ashley Brownlee RN Position: [facility] ED RN W/OE and Tasks Member Role: Primary Care Nurse Name: Becca Enrique RN Position: [facility] RN Member Role: Primary Care Nurse Name: Elma Caruso (INSTR) Position: [facility] RN Member Role: Primary Care Nurse Name: Amanda Huerta RN Position: [facility] RN Member Role: Primary Care Nurse Name: Hazel Valadez DO Position: S Resident Member Role: PCP Address: Address: [address] [place] [address] [place] [address]- Name: Juli Calles RN Position: [facility] RN Member Role: Primary Care Nurse Care Team Related Persons Name: ZULEIMA MCKEON Address: [place] [address] Name: LUCITA TEMPLE Address: home [address] [place] [address] Name: LARA TEMPLE Address: home [address] [place] [address] Name: JUSTIN HINES
--- OUTSIDE RECORDS SUMMARY | 2024-04-04 10:15 | XMS_ITS | Continuity of Care Document ---
Author Organization [facility] Address [address] [place] [address]- Care Team Providers Care Meat Stringer Name Role Phone Valadez DO Hazel Primary Care Physician [phone] [facility]counter [facility] Date[facility]s): 03/22/23 - 04/21/23 [facility] [address] [place] [address]- Allergies, Adverse Reactions, Alerts Substance Reaction Severity [...] 07/01/21 Given SARS-CoV-2 (COVID-19) mRNA BNT-162b2 vac 02/14/21 Recorded pneumococcal 23-valent vaccine 7 06/30/11 Given tetanus/diphtheria/pertussis, acel(Tdap) 10/06/10 Recorded diphtheria-tetanus toxoids (DT) 8 06/15/09 Given tetanus-diphtheria toxoids (Td) 12/23/08 Recorded 1Early/Late Reason: Med Not Available 2Result Comment: [10/30/2014] [id number] 3Admin Note: VIS GIVEN DATED: 04/29/12 4Admin Note: vis given 05/23/11 5Admin Note: VIS GIVEN-DATED 06/07/10 6Result Comment: in error 7Admin Note: vis give dated 08/03/09 8Admin Note: VIS GIVEN VIS DATE 05/08/06 Medications albuterol 0.083% inhalation solution 3 mL = 2.5 mg, Inhalation, Every 6 hours, # 360 mL, 11 Refills, Maintenance, 07/17/22 11:50:00 EDT,Solution, [facility] #[id number], 152, cm, 07/12/22 13:07:00 EDT, Height, 175.5, [...] 03/31/23 21:58:00 EDT, Route to Pharmacy Electronically, [facility] #[id number], Partial fill upon patient request if the [...] 01/07/25 17:08:00 EDT, Route to Pharmacy Electronically, [facility] #[id number], 149.86, cm, 02/09/23 15:52:00 EDT, Height, 172.3, kg, 11/26/22 5:4... Start Date: 01/07/25 Stop Date: 12/23/27 Status: Ordered furosemide 40 mg oral tablet 40 mg, 1, tablet, By Mouth, 2 times a day, for 90 days, # 180 tablet, Refills 11, Tot. Refills 11, Hard Stop 01/07/25 17:08:00 EDT, 01/23/22 17:08:00 EDT, Route to Pharmacy Electronically, [facility] #[id number], 152, cm, 06/17/21 8:41:00 EDT, He... Start Date: 01/23/22 Stop Date: 01/07/25 Status: Ordered gabapentin 100 mg oral capsule 100 mg, 1, capsule, By Mouth, 3 times a day, # 90 capsule, Refills 0, Tot. Refills 0, Maintenance, 12/14/22 17:21:00 EST, Route to Pharmacy Electronically, [facility] #[id number], Partial fill upon patient request if the prescription is for a kelly... Start Date: 12/14/22 Status: Ordered ibuprofen 800 mg oral tablet 800 mg, 1, tablet, By Mouth, 3 times a day, for pain with food or milk, # 30 tablet, Refills 0, Tot. Refills 0, Maintenance, 02/09/23 17:06:00 EDT, Route to Pharmacy Electronically, [facility] #[id number], Partial fill upon patient request if th... Start Date: 02/09/23 Status: Ordered metFORMIN 1000 mg oral tablet 1 tablet = 1,000 mg, By Mouth, 2 times a day, # 60 tablet, 11 Refills, Maintenance, 07/12/22 13:42:00 EDT, Tablet, [facility] #[id number], cancel previous metformin scripts, 152, cm, 07/12/22 13:07:00 EDT, Height, 175.5, kg, 08/09/20 0:18:00 EDT,... Start Date: 07/12/22 Status: Ordered multivitamin Multiple Vitamins oral capsule 1 capsule, By Mouth, Daily, # 30 capsule, 0 Refills, Maintenance, 03/23/23 7:59:00 EDT, Capsule, [facility] #[id number], Partial fill upon patient request if the [...] 11 Refills, Maintenance, 04/21/22 12:34:00 EDT, Powder, [facility] #[id number], Partial fill upon patient request if the prescription is for a schedule II opioid drug., 1 puffs... Start Date: 04/21/22 Stop Date: 04/16/23 Status: Ordered Trulicity Pen 0.75 mg/0.5 mL subcutaneous solution 0.5 mL = 0.75 mg, Subcutaneous Injection, Every week, rotate injection sites, # 2 mL, 3 Refills, Maintenance, 07/12/22 14:01:00 EDT, Solution, [facility] #[id number], Partial fill upon patient request if the prescription is for a schedule II opio... Start Date: 07/12/22 Status: Ordered Vitamin D3 2000 intl units oral capsule 1 capsule = 2,000 International_Units, By Mouth, Daily, # 60 capsule, 2 Refills, Maintenance, 07/17/22 16:56:00 EDT, Capsule, [facility] #[id number], Partial fill upon patient request if the [...] Confirmed Active DMII Confirmed Active 1DrRyder Wade [phone], Norma. Dx 06/07/09 Social History Social History Type Response Smoking Status Former smoker, quit more than 30 days ago entered on: 06/11/19 Sex Patient Care team information Care Team Personnel Name: Jayna Sandhu RN Position: [facility] RN Member Role: Primary Care Nurse Name: Maty Valencia RN Position: [facility] RN Member Role: Primary Care Nurse Name: Roger Peña RN Position: [facility] RN Supv Member Role: Primary Care Nurse Name: Mihir Jackson RN Position: [facility] RN Member Role: Primary Care Nurse Name: Tessy Jaramillo RN Position: [facility] RN Member Role: Primary Care Nurse Name: Danya Roman RN Position: [facility] SN RN Member Role: Primary Care Nurse Name: Kem RNAshley Position: [facility] ED RN W/OE and Tasks Member Role: Primary Care Nurse Name: Becca Enrique RN Position: [facility] RN Member Role: Primary Care Nurse Name: Elma Caruso (INSTR) Position: [facility] RN Member Role: Primary Care Nurse Name: Amanda Huerta RN Position: [facility] RN Member Role: Primary Care Nurse Name: Yessica Stock Position: [facility] RN Member Role: Primary Care Nurse Name: Hazel Valadez DO Position: [facility] Resident Member Role: PCP Address: Address: [address] [place] [address] Adult [place], [place] [address] Name: Radha Bravo RN Position: [facility] RN Member Role: Primary Care Nurse Name: Juli Calles RN Position: [facility] RN Member Role: Primary Care Nurse Care Team Related Persons Name: ZULEIMA MCKEON Address: [place] [address] Name: LUCITA TEMPLE Address: home Name: LARA TEMPLE Name: JUSTIN HINES
--- OUTSIDE RECORDS SUMMARY | 2024-04-04 10:15 | XMS_ITS | Continuity of Care Document ---
Author Organization [facility] Address [address] [place] [address]- Care Team Providers Care Certified Scrum Master Name Role Phone Hazel Valadez DO Primary Care Physician [phone] Encounter [facility] Date(s): 01/14/24 - 02/13/24 [facility] [address] [place], [place] [phone] Allergies, Adverse Reactions, Alerts Substance Reaction Severity [...] Reason: Med Not Available 2Result Comment: [10/30/2014] [id number] 3Admin Note: VIS GIVEN DATED: 04/29/12 4Admin Note: vis given 05/23/11 5Admin Note: VIS GIVEN-DATED 06/07/10 6Admin Note: vis give dated 08/03/09 7Admin Note: VIS GIVEN VIS DATE 05/08/06 Medications Advair Diskus 250 mcg-50 mcg inhalation powder 1, puffs, Inhalation, 2 times a day, # 28 each, Refills 0, Tot. Refills 0, Maintenance, 09/06/23 14:10:00 EST, Powder, Route to Pharmacy Electronically, [id number], [facility] #[id number], 153, cm, 08/19/23 2:04:00 EDT,... Start Date: 09/06/23 Status: Ordered albuterol 0.083% inhalation solution 3 mL = 2.5 mg, Inhalation, Every 6 hours, # 360 mL, 11 Refills, Maintenance, 09/06/23 8:33:00 EST, Solution, [facility] #15394, 153, cm, 08/19/23 2:04:00 EDT, Height, 171.8, [...] Refills 11, Tot. Refills 11, Hard Stop 12/23/27 17:08:00 EST, 01/07/25 17:08:00 EDT, Route to Pharmacy Electronically, [facility] #[id number], 149.86, cm, 02/09/23 15:52:00 EDT... Start Date: 01/07/25 Stop Date: 12/23/27 Status: Ordered furosemide 40 mg oral tablet 40 mg, 1, tablet, By Mouth, 2 times a day, # 180 tablet, Refills 1, Tot. Refills 1, Maintenance, 12/23/27 17:08:00 EST, Route to Pharmacy Electronically, [facility] #[id number], 153, cm, 12/03/23 14:50:00 EST, Height, 176, kg, 09/16/23 13:33:00 E... Start Date: 12/23/27 Stop Date: 12/07/30 Status: Ordered gabapentin 300 mg oral capsule 300 mg, 1, capsule, By Mouth, 2 times a day, for back pain, # 60 capsule, Refills 5, Tot. Refills 5, Maintenance, 01/24/24 14:15:00 EDT, Route to Pharmacy Electronically, [facility] #[id number],Partial fill upon patient request if the prescripti... Start Date: 01/24/24 Status: Ordered ibuprofen 800 mg oral tablet 800 mg, 1, tablet, By Mouth, 3 times a day, prn pain, take with food, # 45 tablet, Refills 0, Tot. Refills 0, Maintenance, 01/18/24 10:01:00 EDT, Route to Pharmacy Electronically, [facility] #[id number], Partial fill upon patient request if the p... Start Date: 01/18/24 Status: Ordered metFORMIN 1000 mg oral tablet 1 tablet = 1,000 mg, By Mouth, 2 times a day, # 60 tablet, 11 Refills, Maintenance, 09/24/23 9:06:00 EST, Tablet, [facility] #55307, cancel previous metformin scripts, 153, cm, 09/16/23 13:33:00 EST, Height, 176, kg, 09/16/23 13:33:00 EST, D... Start Date: 09/24/23 Status: Ordered multivitamin Multiple Vitamins oral capsule 1 capsule, By Mouth, Daily, # 30 capsule, 0 Refills, Maintenance, 09/06/23 8:33:00 EST, Capsule, [facility] #27114, Partial fill upon patient request if the [...] 2 Refills, Maintenance, 09/24/23 9:06:00 EST, Capsule, [facility] #95037, Partial fill upon patient request if the [...] Confirmed Active DMII Confirmed Active 1DrRyder Wade [phone], Norma. Dx 06/07/09 Social History Social History [...] Care Nurse Name: Roger Peña RN Position: [facility] RN Supv Member Role: Primary Care Nurse Name: Mihir Jackson RN Position: [facility] RN Member Role: Primary Care Nurse Name: Danya Roman RN Position: [facility] SN RN Member Role: Primary Care Nurse Name: Kem RNAshley Position: [facility] ED RN W/OE and Tasks Member Role: Primary Care Nurse Name: Zuly THOMSON) Elma Position: [facility] RN Member Role: Primary Care Nurse Name: Amanda Huerta RN Position: [facility] RN Member Role: Primary Care Nurse Name: Yessica Stock RN Position: [facility] RN Member Role: Primary Care Nurse Name: Hazel Valadez DO Position: [facility] Resident Member Role: PCP Address: Address: [address] [place] [address] Adult [place], [place] [address] Name: Juli Calles RN Position: [facility] RN Member Role: Primary Care Nurse Care Team Related Persons Name: ZULEIMA MCKEON Address: [place] [address] Name: ZAYRA STREETER Address: home [address] [place] [address] Name: LUCITA TEMPLE Address: home Name: LARA TEMPLE Address: home [address] [place] [address] Name: JUSTIN HINES
--- OUTSIDE RECORDS SUMMARY | 2024-04-04 10:15 | XMS_ITS | Continuity of Care Document ---
Author Organization [facility] Address [address] [place] [address]- Care Team Providers Care Restaurant Managing Partner Name Role Phone Hazel Valadez DO Primary Care Physician [facility] Date[facility]s): 10/09/23 - 11/18/23 [facility] [address] [place] [address]- Attending Physician: Not on Staff, Attending MD [...] Reason: Med Not Available 2Result Comment: [10/30/2014] [id number] 3Admin Note: VIS GIVEN DATED: 04/29/12 4Admin Note: vis given 05/23/11 5Admin Note: VIS GIVEN-DATED 06/07/10 6Admin Note: vis give dated 08/03/09 7Admin Note: VIS GIVEN VIS DATE 05/08/06 Medications Advair Diskus 250 mcg-50 mcg inhalation powder 1, puffs, Inhalation, 2 times a day, # 28 each, Refills 0, Tot. Refills 0, Maintenance, 09/06/23 14:10:00 EST, Powder, Route to Pharmacy Electronically, [id number], [facility] #[id number], 153, cm, 08/19/23 2:04:00 EDT,... Start Date: 09/06/23 Status: Ordered albuterol 0.083% inhalation solution 3 mL = 2.5 mg, Inhalation, Every 6 hours, # 360 mL, 11 Refills, Maintenance, 09/06/23 8:33:00 EST, Solution, [facility] #[id number], 153, cm, 08/19/23 2:04:00 EDT, Height, 171.8, [...] 01/07/25 17:08:00 EDT, Route to Pharmacy Electronically, [facility] #[id number], 149.86, cm, 02/09/23 15:52:00 EDT, Height, 172.3, kg, 11/26/22 5:4... Start Date: 01/07/25 Stop Date: 12/23/27 Status: Ordered gabapentin 100 mg oral capsule 100 mg, 1, capsule, By Mouth, 3 times a day, # 90 capsule, Refills 0, Tot. Refills 0, Maintenance, 12/14/22 17:21:00 EST, Route to Pharmacy Electronically, [facility] #[id number], Partial fill upon patient request if the prescription is for a kelly... Start Date: 12/14/22 Status: Ordered metFORMIN 1000 mg oral tablet 1 tablet = 1,000 mg, By Mouth, 2 times a day, # 60 tablet, 11 Refills, Maintenance, 09/24/23 9:06:00 EST, Tablet, [facility] #[id number], cancel previous metformin scripts, 153, cm, 09/16/23 13:33:00 EST, Height, 176, kg, 09/16/23 13:33:00 EST, D... Start Date: 09/24/23 Status: Ordered multivitamin Multiple Vitamins oral capsule 1 capsule, By Mouth, Daily, # 30 capsule, 0 Refills, Maintenance, 09/06/23 8:33:00 EST, Capsule, [facility] #[id number], Partial fill upon patient request if the [...] 2 Refills, Maintenance, 09/24/23 9:06:00 EST, Capsule, [facility] #[id number], Partial fill upon patient request if the [...] Confirmed Active DMII Confirmed Active 1DrRyder Wade [phone], Norma. Dx 06/07/09 Social History Social History Type Response Smoking Status Former smoker, quit more than 30 days ago entered on: 06/11/19 Sex Patient Care team information Care Team Personnel Name: Becca Crain RN Position: [facility] RN Member Role: Primary Care Nurse Name: Jayna Sandhu RN Position: S RN Member Role: Primary Care Nurse Name: Maty Valencia RN Position: [facility] RN Member Role: Primary Care Nurse Name: Roger Peña RN Position: [facility] RN Supv Member Role: Primary Care Nurse Name: Mihir Jackson RN Position: [facility] RN Member Role: Primary Care Nurse Name: Danya Roman RN Position: [facility] SN RN Member Role: Primary Care Nurse Name: Ashley Brownlee RN Position: [facility] ED RN W/OE and Tasks Member Role: Primary Care Nurse Name: Amanda Huerta RN Position: [facility] RN Member Role: Primary Care Nurse Name: Yessica Stock Position: [facility] RN Member Role: Primary Care Nurse Name: Hazel Valadez DO Position: [facility] Resident Member Role: PCP Address: Address: [address] [place] [address]- Name: Juli Calles RN Position: [facility] RN Member Role: Primary Care Nurse Care Team Related Persons Name: ZULEIMA MCKEON Address: [place] [address] Name: ZAYRA STREETER Address: home [address] [address] Name: LUCITA TEMPLE Address: home Name: LARA TEMPLE Address: home [address] [address] Name: JUSTIN HINES
--- OUTSIDE RECORDS SUMMARY | 2024-04-04 10:15 | XMS_ITS | Continuity of Care Document ---
Author Organization [facility] Address [address] [place] [address]- Care Team Providers Care Multimedia Artist Name Role Phone Joey Steele MD Primary Care Physician [phone] [facility]s): 03/11/21 - 04/10/21 [facility] [address], [place] [address] Allergies, Adverse Reactions, Alerts [...] Reason: Med Not Available 2Result Comment: [10/30/2014] [id number] 3Admin Note: VIS GIVEN DATED: 04/29/12 4Admin [...] 08/29/20 20:48:00 EST, Route to Pharmacy Electronically, [id number]... Start Date: 08/29/20 Stop Date: 08/24/21 Status: Ordered albuterol CFC free 90 mcg/inh inhalation aerosol 2, puffs, Inhalation, 4 times a day, PRN, FOR WHEEZING AND SHORTNESS OF BREATH, # 1 each, Refills 5, Tot. Refills 5, Maintenance, 08/24/21 20:48:00 EDT, Route to Pharmacy Electronically, [id number], [facility] #[id number]... Start Date: 08/24/21 Stop Date: 02/20/22 [...] Refills, Maintenance, 10/14/20 15:08:00 EST, EC Capsule, [facility] #29970, Partial fill upon patient request if the prescription is fora schedule II opioid drug., 152, cm, 08/13/20 13:28... Start Date: 10/14/20 Status: Ordered furosemide 40 mg oral tablet 40 mg, 1, tablet, By Mouth, 2 times a day, # 60 tablet, Refills 10, Tot. Refills 10, Maintenance, 10/14/20 15:09:00 EST, Route to Pharmacy Electronically, [facility] #[id number], 152, cm, 08/13/20 13:28:00 EDT, Height, 175.5, kg, 08/09/20 0:18:00... Start Date: 10/14/20 Stop Date: 09/09/21 Status: Ordered indomethacin 50 mg oral capsule 1 capsule = 50 mg, By Mouth, 3 times a day, PRN for gout pain, # 15 capsule, 0 Refills, Maintenance, 03/16/21 16:28:00 EDT, Capsule, [facility] #63058, Partial fill upon patient request if the prescription is for a schedule II opioid drug.,... Start Date: 03/16/21 Stop Date: 03/21/21 Status: Ordered metFORMIN 1000 mg oral tablet 1 tablet = 1,000 mg, By Mouth, 2 times a day, takes once daily for 2 weeks, then increase to BID, #60 tablet, 11 Refills, Maintenance, 10/14/20 15:09:00 EST, Tablet, [facility] #51492, 152, cm, 08/13/20 13:28:00 EDT, Height, 175.5, kg, 07/29... Start Date: 10/14/20 Status: Ordered morphine 15 mg oral tablet, immediate release 1 tablet = 15 mg, By Mouth, Every 4 hours, PRN as needed for pain, # 10 tablet, 0 Refills, Maintenance, 03/12/21 1:49:00 EDT, Tablet, [facility] #23629, Partial fill upon patient request, 152, cm, [...] 10 Refills, Maintenance, 10/14/20 15:09:00 EST, Tablet, [facility] #03758, 152, cm, 08/13/20 13:28:00 EDT, Height, 175.5, kg, 08/09/20 0:18:00 EDT, Dry Weight Start Date: 10/14/20 Status: Ordered Vitamin D3 2000 intl units oral capsule 1 capsule = 2,000 International_Units, By Mouth, Daily, # 60 capsule, 2 Refills, Maintenance, 11/02/20 10:14:00 EST, Capsule, [facility] #96935, Partial fill upon patient request if the [...] home CPAP(Confirmed) Active DMII(Confirmed) Active 1DrRyder Wade [phone], Norma. Dx 06/07/09 Social History Social History Type Response Smoking Status Former smoker, quit more than 30 days ago entered on: 06/11/19 Sex
--- OUTSIDE RECORDS SUMMARY | 2024-04-04 10:15 | XMS_ITS | Continuity of Care Document ---
Author Organization [facility] Address [address] [place] [address]- Care Team Providers Care Dye Penetrant Testing Technician Name Role Phone Allyson ARMSTRONG Hazel Primary Care Physician [facility]): 12[facility]23 - 01/02/24 [facility] [address], [place] [address] Attending Physician: AdmVannesa koehler Admitting Physician: Admtr, Ar8 Referring Physician: Admtr, Ar8 Allergies, Adverse Reactions, [...] Reason: Med Not Available 2Result Comment: [10/30/2014] [id number] 3Admin Note: VIS GIVEN DATED: 04/29/12 4Admin Note: vis given 05/23/11 5Admin Note: VIS GIVEN-DATED 06/07/10 6Admin Note: vis give dated 08/03/09 7Admin Note: VIS GIVEN VIS DATE 05/08/06 Medications Advair Diskus 250 mcg-50 mcg inhalation powder 1, puffs, Inhalation, 2 times a day, # 28 each, Refills 0, Tot. Refills 0, Maintenance, 09/06/23 14:10:00 EST, Powder, Route to Pharmacy Electronically, [id number], [facility] #[id number], 153, cm, 08/19/23 2:04:00 EDT,... Start Date: 09/06/23 Status: Ordered albuterol 0.083% inhalation solution 3 mL = 2.5 mg, Inhalation, Every 6 hours, # 360 mL, 11 Refills, Maintenance, 09/06/23 8:33:00 EST, Solution, [facility] #[id number], 153, cm, 08/19/23 2:04:00 EDT, Height, 171.8, [...] 01/07/25 17:08:00 EDT, Route to Pharmacy Electronically, [facility] #[id number], 149.86, cm, 02/09/23 15:52:00 EDT, Height, 172.3, kg, 11/26/22 5:4... Start Date: 01/07/25 Stop Date: 12/23/27 Status: Ordered gabapentin 100 mg oral capsule 100 mg, 1, capsule, By Mouth, 3 times a day, # 90 capsule, Refills 0, Tot. Refills 0, Maintenance, 12/14/22 17:21:00 EST, Route to Pharmacy Electronically, [facility] #11047, Partial fill upon patient request if the prescription is for a kelly... Start Date: 12/14/22 Status: Ordered metFORMIN 1000 mg oral tablet 1 tablet = 1,000 mg, By Mouth, 2 times a day, # 60 tablet, 11 Refills, Maintenance, 09/24/23 9:06:00 EST, Tablet, [facility] #93187, cancel previous metformin scripts, 153, cm, 09/16/23 13:33:00 EST, Height, 176, kg, 09/16/23 13:33:00 EST, D... 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 Dx 06/07/09 Social History Social History Type Response Smoking Status Former smoker, quit more than 30 days ago entered on: 06/11/19 Sex Cardiology * Event Display: Cardiology Office Note, Non-BH Authored Date: * Event Display: Cardiology Office Note, Non- Authored Date: Note * Philipp Hutton: PERFORM, SIGN, VERIFY Event Display: Patient Education/Instruction Authored Date: [id number] [facility] Clinical Summary Person Information Name ZULEIMA TEMPLE [...] primary care provider, you may find a [facility] provider by calling [facility] Link at [phone]. Patient Education Information Follow-up Details: With: Address: When: María Albrecht MD [address] [place], [place] [id number] phone, fixed, [employer] (1) Within 1 month Comments: WEIGHT MANAGMENT Patient Education Material: Patient Care team information Care Team Personnel Name: Becca Crain RN Position: [facility] RN Member Role: Primary Care Nurse Name: Jayna Sandhu RN Position: S RN Member Role: Primary Care Nurse Name: Maty Valencia RN Position: S RN Member Role: Primary Care Nurse Name: Roger Peña RN Position: [facility] RN Supv Member Role: Primary Care Nurse Name: Mihir Jackson RN Position: [facility] RN Member Role: Primary Care Nurse Name: Danya Roman RN Position: [facility] SN RN Member Role: Primary Care Nurse Name: Kem RNAshley Position: [facility] ED RN W/OE and Tasks Member Role: Primary Care Nurse Name: Bradley RNAmanda Position: [facility] RN Member Role: Primary Care Nurse Name: Yessica Stock RN Position: [facility] RN Member Role: Primary Care Nurse Name: Hazel Valadez DO Position: [facility] Resident Member Role: PCP Address: Address: [address] [place] [address] Adult [place], [place] [address] Name: Juli Calles RN Position: [facility] RN Member Role: Primary Care Nurse Care Team Related Persons Name: ZULEIMA MCKEON Address: [place] [address] Name: ZAYRA STREETER Address: home [address] [place] [address] Name: LUCITA TEMPLE Address: home Name: LARA TEMPLE Address: home [address] [place] [address] Name: JUSTIN HINES
--- OUTSIDE RECORDS SUMMARY | 2024-04-04 10:15 | XMS_ITS | Continuity of Care Document ---
Author Organization [facility] Address [address] [place] [address]- Care Team Providers Care Laminating Machine Operator Helper Name Role Phone Allyson ARMSTRONG Hazel Primary Care Physician [facility] - 02/09/23 [facility] [address] [place] [address]- Attending Physician: Not on Staff, Attending MD [...] Reason: Med Not Available 2Result Comment: [10/30/2014] [id number] 3Admin Note: VIS GIVEN DATED: 04/29/12 4Admin Note: vis given 05/23/11 5Admin Note: VIS GIVEN-DATED 06/07/10 6Result Comment: in error 7Admin Note: vis give dated 08/03/09 8Admin Note: VIS GIVEN VIS DATE 05/08/06 Medications albuterol 0.083% inhalation solution 3 mL = 2.5 mg, Inhalation, Every 6 hours, # 360 mL, 11 Refills, Maintenance, 07/17/22 11:50:00 EDT,Solution, [facility] #[id number], 152, cm, 07/12/22 13:07:00 EDT, Height, 175.5, [...] 01/23/22 17:08:00 EDT, Route to Pharmacy Electronically, [facility][id number], 152, cm, 06/17/21 8:41:00 EDT, Height, 175.5, kg, 08/09/20 0:18:00... Start Date: 01/23/22 Stop Date: 01/07/25 Status: Ordered gabapentin 100 mg oral capsule 100 mg, 1, capsule, By Mouth, 3 times a day, # 90 capsule, Refills 0, Tot. Refills 0, Maintenance, 12/14/22 17:21:00 EST, Route to Pharmacy Electronically, [facility] #[id number], Partial fill upon patient request if the prescription is for a kelly... Start Date: 12/14/22 Status: Ordered ibuprofen 800 mg oral tablet 800 mg, 1, tablet, By Mouth, 3 times a day, for pain with food or milk, # 30 tablet, Refills 0, Tot. Refills 0, Maintenance, 02/09/23 17:06:00 EDT, Route to Pharmacy Electronically, [facility] #[id number], Partial fill upon patient request if th... Start Date: 02/09/23 Status: Ordered lisinopril 5 mg oral tablet 5 mg, 1, tablet, By Mouth, Daily, Need follow up with your pcp, # 30 tablet, Refills 0, Tot. Refills 0, Acute 02/25/23 17:31:00 EDT, 01/25/23 17:31:00 EDT, Route to Pharmacy Electronically, [facility] #[id number], Please disregard 10mg dosing, 14... Start Date: 01/25/23 Stop Date: 02/25/23 Status: Ordered metFORMIN 1000 mg oral tablet 1 tablet = 1,000 mg, By Mouth, 2 times a day, # 60 tablet, 11 Refills, Maintenance, 07/12/22 13:42:00 EDT, Tablet, [facility] #[id number], cancel previous metformin scripts, 152, cm, 07/12/22 [...] 11 Refills, Maintenance, 04/21/22 12:34:00 EDT, Powder, [facility] #[id number], Partial fill upon patient request if the prescription is for a schedule II opioid drug., 1 puffs... Start Date: 04/21/22 Stop Date: 04/16/23 Status: Ordered Trulicity Pen 0.75 mg/0.5 mL subcutaneous solution 0.5 mL = 0.75 mg, Subcutaneous Injection, Every week, rotate injection sites, # 2 mL, 3 Refills, Maintenance, 07/12/22 14:01:00 EDT, Solution, [facility] #[id number], Partial fill upon patient request if the prescription is for a schedule II opio... Start Date: 07/12/22 Status: Ordered Vitamin D3 2000 intl units oral capsule 1 capsule = 2,000 International_Units, By Mouth, Daily, # 60 capsule, 2 Refills, Maintenance, 07/17/22 16:56:00 EDT, Capsule, [facility] #[id number], Partial fill upon patient request if the [...] Active DMII Confirmed Active 1Dr. Tunde Wade [phone], Norma. Dx 06/07/09 Social History Social History [...] Care Nurse Name: Mihir Jackson RN Position: [facility] RN [...] SOUTH Resident Member Role: PCP Address: Address: [address] [place] [address] Adult [place], [place] [address] Name: Radha Braov RN Position: [facility] RN Member Role: Primary Care Nurse Name: Juli Calles RN Position: [facility] RN Member Role: Primary Care Nurse Care Team Related Persons Name: FLORIJacqui ZULEIMA Address: [place] [address] Name: LUCITA TEMPLE Address: home Name: LARA TEMPLE Name: JUSTIN HINES
--- OUTSIDE RECORDS SUMMARY | 2024-04-04 10:15 | XMS_ITS | Continuity of Care Document ---
Author Organization [facility] Address [address] [place] [address]- Care Team Providers Care Machine Sewer Name Role Phone Allyson ARMSTRONG Hazel Primary Care Physician [facility]23 - 07/19/23 [facility] [address] [place], [place] [address] Allergies, Adverse Reactions, Alerts Substance [...] Reason: Med Not Available 2Result Comment: [10/30/2014] [id number] 3Admin Note: VIS GIVEN DATED: 04/29/12 4Admin Note: vis given 05/23/11 5Admin Note: VIS GIVEN-DATED 06/07/10 6Admin Note: vis give dated 08/03/09 7Admin Note: VIS GIVEN VIS DATE 05/08/06 Medications albuterol 0.083% inhalation solution 3 mL = 2.5 mg, Inhalation, Every 6 hours, # 360 mL, 11 Refills, Maintenance, 07/17/22 11:50:00 EDT,Solution, [facility] #[id number], 152, cm, 07/12/22 13:07:00 EDT, Height, 175.5, [...] 03/31/23 21:58:00 EDT, Route to Pharmacy Electronically, [facility] #[id number], Partial fill upon patient request if the prescription is for a schedule II opi... Start Date: 03/31/23 Stop Date: 6/10/23 Status: Ordered Freestyle jorden 2 sensors 14 [...] 01/07/25 17:08:00 EDT, Route to Pharmacy Electronically, [facility] #[id number], 149.86, cm, 02/09/23 15:52:00 EDT, Height, 172.3, kg, 11/26/22 5:4... Start Date: 01/07/25 Stop Date: 12/23/27 Status: Ordered furosemide 40 mg oral tablet 40 mg, 1, tablet, By Mouth, 2 times a day, for 90 days, # 180 tablet, Refills 11, Tot. Refills 11, Hard Stop 01/07/25 17:08:00 EDT, 01/23/22 17:08:00 EDT, Route to Pharmacy Electronically, [facility] #[id number], 152, cm, 06/17/21 8:41:00 EDT, He... Start Date: 01/23/22 Stop Date: 01/07/25 Status: Ordered gabapentin 100 mg oral capsule 100 mg, 1, capsule, By Mouth, 3 times a day, # 90 capsule, Refills 0, Tot. Refills 0, Maintenance, 12/14/22 17:21:00 EST, Route to Pharmacy Electronically, [facility] #[id number], Partial fill upon patient request if the prescription is for a kelly... Start Date: 12/14/22 Status: Ordered ibuprofen 800 mg oral tablet 800 mg, 1, tablet, By Mouth, 3 times a day, for pain with food or milk, # 30 tablet, Refills 0, Tot. Refills 0, Maintenance, 02/09/23 17:06:00 EDT, Route to Pharmacy Electronically, [facility] #[id number], Partial fill upon patient request if th... Start Date: 02/09/23 Status: Ordered metFORMIN 1000 mg oral tablet 1 tablet = 1,000 mg, By Mouth, 2 times a day, # 60 tablet, 11 Refills, Maintenance, 07/12/22 13:42:00 EDT, Tablet, [facility] #[id number], cancel previous metformin scripts, 152, cm, 07/12/22 13:07:00 EDT, Height, 175.5, kg, 08/09/20 0:18:00 EDT,... Start Date: 07/12/22 Status: Ordered multivitamin Multiple Vitamins oral capsule 1 capsule, By Mouth, Daily, # 30 capsule, 0 Refills, Maintenance, 03/23/23 7:59:00 EDT, Capsule, [facility] #[id number], Partial fill upon patient request if the [...] 11 Refills, Maintenance, 04/21/22 12:34:00 EDT, Powder, [facility] #[id number], Partial fill upon patient request if the prescription is for a schedule II opioid drug., 1 puffs... Start Date: 04/21/22 Stop Date: 04/16/23 Status: Ordered Trulicity Pen 0.75 mg/0.5 mL subcutaneous solution 0.5 mL = 0.75 mg, Subcutaneous Injection, Every week, rotate injection sites, # 2 mL, 3 Refills, Maintenance, 07/12/22 14:01:00 EDT, Solution, [facility] #[id number], Partial fill upon patient request if the prescription is for a schedule II opio... Start Date: 07/12/22 Status: Ordered Vitamin D3 2000 intl units oral capsule 1 capsule = 2,000 International_Units, By Mouth, Daily, # 60 capsule, 2 Refills, Maintenance, 07/17/22 16:56:00 EDT, Capsule, [facility] #[id number], Partial fill upon patient request if the [...] Confirmed Active DMII Confirmed Active 1DrRyder Wade [phone], Norma. Dx 06/07/09 Social History Social History Type Response Smoking Status Former smoker, quit more than 30 days ago entered on: 06/11/19 Sex Patient Care team information Care Team Personnel Name: Jayna Sandhu RN Position: S RN Member Role: Primary Care Nurse Name: Maty Valencia RN Position: S RN Member Role: Primary Care Nurse Name: Roger Peña RN Position: [facility] RN Supv Member Role: Primary Care Nurse Name: Mihir Jackson RN Position: [facility] RN Member Role: Primary Care Nurse Name: Danya Roman RN Position: [facility] SN RN Member Role: Primary Care Nurse Name: Kem RNAshley Position: [facility] ED RN W/OE and Tasks Member Role: Primary Care Nurse Name: Becca Enrique RN Position: [facility] RN Member Role: Primary Care Nurse Name: Zuly THOMSON) Elma Position: [facility] RN Member Role: Primary Care Nurse Name: Amanda Huerta RN Position: [facility] RN Member Role: Primary Care Nurse Name: Yessica Stock Position: [facility] RN Member Role: Primary Care Nurse Name: Hazel Valadez DO Position: [facility] Resident Member Role: PCP Address: Address: [address] [place] [address] Adult [place], [place] [address] Name: Radha Bravo RN Position: [facility] RN Member Role: Primary Care Nurse Name: Juli Calles RN Position: [facility] RN Member Role: Primary Care Nurse Care Team Related Persons Name: ZULEIMA MCKEON Address: [place] [address] Name: LUCITA TEMPLE Address: home Name: LARA TEMPLE Name: JUSTIN HINES
--- OUTSIDE RECORDS SUMMARY | 2024-04-04 10:15 | XMS_ITS | Continuity of Care Document ---
Author Organization [facility] Address [address] [place] [address]- Care Team Providers Care Attendant Arcade Name Role Phone Allyson ARMSTRONG Hazel Primary Care Physician [facility] - 07/18/23 [facility] [address] [place] [id number] Allergies, Adverse Reactions, Alerts [...] Reason: Med Not Available 2Result Comment: [10/30/2014] [id number] 3Admin Note: VIS GIVEN DATED: 04/29/12 4Admin Note: vis given 05/23/11 5Admin Note: VIS GIVEN-DATED 06/07/10 6Admin Note: vis give dated 08/03/09 7Admin Note: VIS GIVEN VIS DATE 05/08/06 Medications albuterol 0.083% inhalation solution 3 mL = 2.5 mg, Inhalation, Every 6 hours, # 360 mL, 11 Refills, Maintenance, 07/17/22 11:50:00 EDT,Solution, [facility] #[id number], 152, cm, 07/12/22 13:07:00 EDT, Height, 175.5, [...] 03/31/23 21:58:00 EDT, Route to Pharmacy Electronically, [facility] #[id number], Partial fill upon patient request if the [...] 01/07/25 17:08:00 EDT, Route to Pharmacy Electronically, [facility] #[id number], 149.86, cm, 02/09/23 15:52:00 EDT, Height, 172.3, kg, 11/26/22 5:4... Start Date: 01/07/25 Stop Date: 12/23/27 Status: Ordered furosemide 40 mg oral tablet 40 mg, 1, tablet, By Mouth, 2 times a day, for 90 days, # 180 tablet, Refills 11, Tot. Refills 11, Hard Stop 01/07/25 17:08:00 EDT, 01/23/22 17:08:00 EDT, Route to Pharmacy Electronically, [facility] #[id number], 152, cm, 06/17/21 8:41:00 EDT, He... Start Date: 01/23/22 Stop Date: 01/07/25 Status: Ordered gabapentin 100 mg oral capsule 100 mg, 1, capsule, By Mouth, 3 times a day, # 90 capsule, Refills 0, Tot. Refills 0, Maintenance, 12/14/22 17:21:00 EST, Route to Pharmacy Electronically, [facility] #[id number], Partial fill upon patient request if the prescription is for a kelly... Start Date: 12/14/22 Status: Ordered ibuprofen 800 mg oral tablet 800 mg, 1, tablet, By Mouth, 3 times a day, for pain with food or milk, # 30 tablet, Refills 0, Tot. Refills 0, Maintenance, 02/09/23 17:06:00 EDT, Route to Pharmacy Electronically, [facility] #[id number], Partial fill upon patient request if th... Start Date: 02/09/23 Status: Ordered metFORMIN 1000 mg oral tablet 1 tablet = 1,000 mg, By Mouth, 2 times a day, # 60 tablet, 11 Refills, Maintenance, 07/12/22 13:42:00 EDT, Tablet, [facility] #[id number], cancel previous metformin scripts, 152, cm, 07/12/22 13:07:00 EDT, Height, 175.5, kg, 08/09/20 0:18:00 EDT,... Start Date: 07/12/22 Status: Ordered multivitamin Multiple Vitamins oral capsule 1 capsule, By Mouth, Daily, # 30 capsule, 0 Refills, Maintenance, 03/23/23 7:59:00 EDT, Capsule, [facility] #[id number], Partial fill upon patient request if the [...] 11 Refills, Maintenance, 04/21/22 12:34:00 EDT, Powder, [facility] #[id number], Partial fill upon patient request if the prescription is for a schedule II opioid drug., 1 puffs... Start Date: 04/21/22 Stop Date: 04/16/23 Status: Ordered Trulicity Pen 0.75 mg/0.5 mL subcutaneous solution 0.5 mL = 0.75 mg, Subcutaneous Injection, Every week, rotate injection sites, # 2 mL, 3 Refills, Maintenance, 07/12/22 14:01:00 EDT, Solution, [facility] #[id number], Partial fill upon patient request if the prescription is for a schedule II opio... Start Date: 07/12/22 Status: Ordered Vitamin D3 2000 intl units oral capsule 1 capsule = 2,000 International_Units, By Mouth, Daily, # 60 capsule, 2 Refills, Maintenance, 07/17/22 16:56:00 EDT, Capsule, [facility] #[id number], Partial fill upon patient request if the [...] Confirmed Active DMII Confirmed Active 1DrRyder Wade [phone], Norma. Dx 06/07/09 Social History Social History Type Response Smoking Status Former smoker, quit more than 30 days ago entered on: 06/11/19 Sex Patient Care team information Care Team Personnel Name: Jayna Sandhu RN Position: S RN Member Role: Primary Care Nurse Name: Maty Valencia RN Position: S RN Member Role: Primary Care Nurse Name: Roger Peña RN Position: [facility] RN Supv Member Role: Primary Care Nurse Name: Mihir Jackson RN Position: [facility] RN Member Role: Primary Care Nurse Name: Danya Roman RN Position: [facility] SN RN Member Role: Primary Care Nurse Name: Kem RNAshley Position: [facility] ED RN W/OE and Tasks Member Role: Primary Care Nurse Name: Becca Enrique RN Position: [facility] RN Member Role: Primary Care Nurse Name: Zuly THOMSON) Elma Position: [facility] RN Member Role: Primary Care Nurse Name: Amanda Huerta RN Position: [facility] RN Member Role: Primary Care Nurse Name: Yessica Stock Position: [facility] RN Member Role: Primary Care Nurse Name: Hazel Valadez DO Position: [facility] Resident Member Role: PCP Address: Address: [address] [place] [address] Adult [place], [place] [address] Name: Radha Bravo RN Position: [facility] RN Member Role: Primary Care Nurse Name: Juli Calles RN Position: [facility] RN Member Role: Primary Care Nurse Care Team Related Persons Name: LINDA ZULEIMA Address: [place] [address] Name: LUCITA TEMPLE Address: home Name: LARA TEMPLE Name: JUSTIN HINES
--- OUTSIDE RECORDS SUMMARY | 2024-04-04 10:15 | XMS_ITS | Continuity of Care Document ---
Author Organization [facility] Address [address] [place] [address]- Care Team Providers Care Bottoming Room Supervisor Name Role Phone Hazel Valadez DO Primary Care Physician [phone] [facility] 11[facility]02/23 [facility] [address], [place] [address] Attending Physician: Not on Staff, Attending MD [...] Reason: Med Not Available 2Result Comment: [10/30/2014] [id number] 3Admin Note: VIS GIVEN DATED: 04/29/12 4Admin Note: vis given 05/23/11 5Admin Note: VIS GIVEN-DATED 06/07/10 6Admin Note: vis give dated 08/03/09 7Admin Note: VIS GIVEN VIS DATE 05/08/06 Medications Advair Diskus 250 mcg-50 mcg inhalation powder 1, puffs, Inhalation, 2 times a day, # 28 each, Refills 0, Tot. Refills 0, Maintenance, 09/06/23 14:10:00 EST, Powder, Route to Pharmacy Electronically, [id number], [facility] #[id number], 153, cm, 08/19/23 2:04:00 EDT,... Start Date: 09/06/23 Status: Ordered albuterol 0.083% inhalation solution 3 mL = 2.5 mg, Inhalation, Every 6 hours, # 360 mL, 11 Refills, Maintenance, 09/06/23 8:33:00 EST, Solution, [facility] #[id number], 153, cm, 08/19/23 2:04:00 EDT, Height, 171.8, [...] 01/07/25 17:08:00 EDT, Route to Pharmacy Electronically, [facility] #[id number], 149.86, cm, 02/09/23 15:52:00 EDT, Height, 172.3, kg, 11/26/22 5:4... Start Date: 01/07/25 Stop Date: 12/23/27 Status: Ordered gabapentin 100 mg oral capsule 100 mg, 1, capsule, By Mouth, 3 times a day, # 90 capsule, Refills 0, Tot. Refills 0, Maintenance, 12/14/22 17:21:00 EST, Route to Pharmacy Electronically, [facility] #[id number], Partial fill upon patient request if the prescription is for a kelly... Start Date: 12/14/22 Status: Ordered metFORMIN 1000 mg oral tablet 1 tablet = 1,000 mg, By Mouth, 2 times a day, # 60 tablet, 11 Refills, Maintenance, 09/24/23 9:06:00 EST, Tablet, [facility] #[id number], cancel previous metformin scripts, 153, cm, 09/16/23 13:33:00 EST, Height, 176, kg, 09/16/23 13:33:00 EST, D... Start Date: 09/24/23 Status: Ordered multivitamin Multiple Vitamins oral capsule 1 capsule, By Mouth, Daily, # 30 capsule, 0 Refills, Maintenance, 09/06/23 8:33:00 EST, Capsule, [facility] #[id number], Partial fill upon patient request if the [...] 2 Refills, Maintenance, 09/24/23 9:06:00 EST, Capsule, [facility] #[id number], Partial fill upon patient request if the [...] Confirmed Active DMII Confirmed Active 1DrRyder Wade [phone], Norma. Dx 06/07/09 Social History Social History [...] Care Nurse Name: Hazel Valadez DO Position: [facility] Resident Member Role: PCP Address: Address: [address] [place] [address]- Name: Juli Calles RN Position: [facility] RN Member Role: Primary Care Nurse Care Team Related Persons Name: ZULEIMA MCKEON Address: [place] [address] Name: ZAYRA STREETER Address: home [address] [address] Name: LUCITA TEMPLE Address: home Name: LARA TEMPLE Address: home [address] [address] Name: JUSTIN HINES
--- OUTSIDE RECORDS SUMMARY | 2024-04-04 10:15 | XMS_ITS | Continuity of Care Document ---
Author Organization [facility] Address [address] [place] [address]- Care Team Providers Care Crimp Setter Name Role Phone Allyson ARMSTRONG Hazel Primary Care Physician [facility] - 07/21/23 [facility] [address] [place], [place] [address] Allergies, Adverse Reactions, Alerts [...] Jaciel rded influenza virus vaccine, inactivated 09/03/07 Jcaiel rded SARS-CoV-2 (COVID-19) mRNA BNT-162b2 vac 10/07/21 Recorded SARS-CoV-2 (COVID-19) mRNA BNT-162b2 vac 07/01/21 Given pneumococcal 23-valent vaccine 6 06/30/11 Given tetanus/diphtheria/pertussis, acel(Tdap) 10/06/10 Recorded diphtheria-tetanus toxoids (DT) 7 06/15/09 Given tetanus-diphtheria toxoids (Td) 12/23/08 Recorded 1Early/Late Reason: Med Not Available 2Result Comment: [10/30/2014] [id number] 3Admin Note: VIS GIVEN DATED: 04/29/12 4Admin Note: vis given 05/23/11 5Admin Note: VIS GIVEN-DATED 06/07/10 6Admin Note: vis give dated 08/03/09 7Admin Note: VIS GIVEN VIS DATE 05/08/06 Medications albuterol 0.083% inhalation solution 3 mL = 2.5 mg, Inhalation, Every 6 hours, # 360 mL, 11 Refills, Maintenance, 07/17/22 11:50:00 EDT,Solution, [facility] #[id number], 152, cm, 07/12/22 13:07:00 EDT, Height, 175.5, [...] 03/31/23 21:58:00 EDT, Route to Pharmacy Electronically, [facility] #[id number], Partial fill upon patient request if the [...] 01/07/25 17:08:00 EDT, Route to Pharmacy Electronically, [facility] #[id number], 149.86, cm, 02/09/23 15:52:00 EDT, Height, 172.3, kg, 11/26/22 5:4... Start Date: 01/07/25 Stop Date: 12/23/27 Status: Ordered furosemide 40 mg oral tablet 40 mg, 1, tablet, By Mouth, 2 times a day, for 90 days, # 180 tablet, Refills 11, Tot. Refills 11, Hard Stop 01/07/25 17:08:00 EDT, 01/23/22 17:08:00 EDT, Route to Pharmacy Electronically, [facility] #[id number], 152, cm, 06/17/21 8:41:00 EDT, He... Start Date: 01/23/22 Stop Date: 01/07/25 Status: Ordered gabapentin 100 mg oral capsule 100 mg, 1, capsule, By Mouth, 3 times a day, # 90 capsule, Refills 0, Tot. Refills 0, Maintenance, 12/14/22 17:21:00 EST, Route to Pharmacy Electronically, [facility] #[id number], Partial fill upon patient request if the prescription is for a kelly... Start Date: 12/14/22 Status: Ordered ibuprofen 800 mg oral tablet 800 mg, 1, tablet, By Mouth, 3 times a day, for pain with food or milk, # 30 tablet, Refills 0, Tot. Refills 0, Maintenance, 02/09/23 17:06:00 EDT, Route to Pharmacy Electronically, [facility] #[id number], Partial fill upon patient request if th... Start Date: 02/09/23 Status: Ordered metFORMIN 1000 mg oral tablet 1 tablet = 1,000 mg, By Mouth, 2 times a day, # 60 tablet, 11 Refills, Maintenance, 07/12/22 13:42:00 EDT, Tablet, [facility] #39805, cancel previous metformin scripts, 152, cm, 07/12/22 13:07:00 EDT, Height, 175.5, kg, 08/09/20 0:18:00 EDT,... Start Date: 07/12/22 Status: Ordered multivitamin Multiple Vitamins oral capsule 1 capsule, By Mouth, Daily, # 30 capsule, 0 Refills, Maintenance, 03/23/23 7:59:00 EDT, Capsule, [facility] #[id number], Partial fill upon patient request if the [...] Refills, Maintenance, 04/21/22 12:34:00 EDT, Powder, [facility] #[id number], Partial fill upon patient request if the prescription is for a schedule II opioid drug., 1 puffs... Start Date: 04/21/22 Stop Date: 04/16/23 Status: Ordered Trulicity Pen 0.75 mg/0.5 mL subcutaneous solution 0.5 mL = 0.75 mg, Subcutaneous Injection, Every week, rotate injection sites, # 2 mL, 3 Refills, Maintenance, 07/12/22 14:01:00 EDT, Solution, [facility] #[id number], Partial fill upon patient request if the prescription is for a schedule II opio... Start Date: 07/12/22 Status: Ordered Vitamin D3 2000 intl units oral capsule 1 capsule = 2,000 International_Units, By Mouth, Daily, # 60 capsule, 2 Refills, Maintenance, 07/17/22 16:56:00 EDT, Capsule, [facility] #[id number], Partial fill upon patient request if the [...] Confirmed Active DMII Confirmed Active 1DrRyder Wade [phone], Norma. Dx 06/07/09 Social History Social History [...] Primary Care Nurse Name: Kem RNAshley Position: [facility] ED RN W/OE and Tasks Member Role: Primary Care Nurse Name: Becca Enrique RN Position: [facility] RN Member Role: Primary Care Nurse Name: Zuly THOMSON) Elma Position: [facility] RN Member Role: Primary Care Nurse Name: Amanda Huerta RN Position: [facility] RN Member Role: Primary Care Nurse Name: Yessica Stock Position: [facility] RN Member Role: Primary Care Nurse Name: Hazel Valadez DO Position: [facility] Resident Member Role: PCP Address: Address: [address] [place] [address] Adult [place], [place] [address] Name: Radha Bravo RN Position: [facility] RN Member Role: Primary Care Nurse Name: Juli Calles RN Position: [facility] RN Member Role: Primary Care Nurse Care Team Related Persons Name: ZULEIMA MCKEON Address: [place] [address] Name: LUCITA TEMPLE Address: home Name: LARA TEMPLE Name: JUSTIN HINES
--- OUTSIDE RECORDS SUMMARY | 2024-04-04 10:15 | XMS_ITS | Continuity of Care Document ---
Author Organization [facility] Address [address] [place] [address]- Care Team Providers Care Registrar Assistant Name Role Phone Hazel Valadez DO Primary Care Physician [phone] [facility]counter [facility] Date[facility]s): 10/03/23 - 11/02/23 [facility] [address] [place] [address]- Allergies, Adverse Reactions, Alerts Substance Reaction Severity [...] Reason: Med Not Available 2Result Comment: [10/30/2014] [id number] 3Admin Note: VIS GIVEN DATED: 04/29/12 4Admin Note: vis given 05/23/11 5Admin Note: VIS GIVEN-DATED 06/07/10 6Admin Note: vis give dated 08/03/09 7Admin Note: VIS GIVEN VIS DATE 05/08/06 Medications Advair Diskus 250 mcg-50 mcg inhalation powder 1, puffs, Inhalation, 2 times a day, # 28 each, Refills 0, Tot. Refills 0, Maintenance, 09/06/23 14:10:00 EST, Powder, Route to Pharmacy Electronically, [id number], [facility] #[id number], 153, cm, 08/19/23 2:04:00 EDT,... Start Date: 09/06/23 Status: Ordered albuterol 0.083% inhalation solution 3 mL = 2.5 mg, Inhalation, Every 6 hours, # 360 mL, 11 Refills, Maintenance, 09/06/23 8:33:00 EST, Solution, [facility] #[id number], 153, cm, 08/19/23 2:04:00 EDT, Height, 171.8, [...] 01/07/25 17:08:00 EDT, Route to Pharmacy Electronically, [facility] #[id number], 149.86, cm, 02/09/23 15:52:00 EDT, Height, 172.3, kg, 11/26/22 5:4... Start Date: 01/07/25 Stop Date: 12/23/27 Status: Ordered gabapentin 100 mg oral capsule 100 mg, 1, capsule, By Mouth, 3 times a day, # 90 capsule, Refills 0, Tot. Refills 0, Maintenance, 12/14/22 17:21:00 EST, Route to Pharmacy Electronically, [facility] #[id number], Partial fill upon patient request if the prescription is for a kelly... Start Date: 12/14/22 Status: Ordered metFORMIN 1000 mg oral tablet 1 tablet = 1,000 mg, By Mouth, 2 times a day, # 60 tablet, 11 Refills, Maintenance, 09/24/23 9:06:00 EST, Tablet, [facility] #[id number], cancel previous metformin scripts, 153, cm, 09/16/23 13:33:00 EST, Height, 176, kg, 09/16/23 13:33:00 EST, D... Start Date: 09/24/23 Status: Ordered multivitamin Multiple Vitamins oral capsule 1 capsule, By Mouth, Daily, # 30 capsule, 0 Refills, Maintenance, 09/06/23 8:33:00 EST, Capsule, [facility] #[id number], Partial fill upon patient request if the [...] 2 Refills, Maintenance, 09/24/23 9:06:00 EST, Capsule, [facility] #[id number], Partial fill upon patient request if the [...] Confirmed Active DMII Confirmed Active 1DrRyder Wade [phone], Norma. Dx 06/07/09 Social History Social History [...] Primary Care Nurse Name: Yessica Stock Position: [facility] RN Member Role: Primary Care Nurse Name: Hazel Valadez DO Position: [facility] Resident Member Role: PCP Address: Address: [address] [place] [address] [place] [address]- Name: Juli Calles RN Position: [facility] RN Member Role: Primary Care Nurse Care Team Related Persons Name: ZULEIMA MCKEON Address: [place] [address] Name: ZAYRA STREETER Address: home [address] [address] Name: LUCITA TEMPLE Address: home Name: LARA TEMPLE Address: home [address] [address] Name: JUSTIN HINES
--- OUTSIDE RECORDS SUMMARY | 2024-04-04 10:15 | XMS_ITS | Continuity of Care Document ---
Author Organization [facility] Address [address] [place] [address]- Care Team Providers Care Automotive Repair Technician Name Role Phone Allyson ARMSTRONG Hazel Primary Care Physician [phone] [facility]counter [facility] Date[facility]s): 09/06/23 - 10/06/[address] [address]- Allergies, Adverse Reactions, Alerts Substance Reaction Severity [...] Reason: Med Not Available 2Result Comment: [10/30/2014] [id number] 3Admin Note: VIS GIVEN DATED: 04/29/12 4Admin Note: vis given 05/23/11 5Admin Note: VIS GIVEN-DATED 06/07/10 6Admin Note: vis give dated 08/03/09 7Admin Note: VIS GIVEN VIS DATE 05/08/06 Medications Advair Diskus 250 mcg-50 mcg inhalation powder 1, puffs, Inhalation, 2 times a day, # 28 each, Refills 0, Tot. Refills 0, Maintenance, 09/06/23 14:10:00 EST, Powder, Route to Pharmacy Electronically, [id number], [facility] #[id number], 153, cm, 08/19/23 2:04:00 EDT,... Start Date: 09/06/23 Status: Ordered albuterol 0.083% inhalation solution 3 mL = 2.5 mg, Inhalation, Every 6 hours, # 360 mL, 11 Refills, Maintenance, 09/06/23 8:33:00 EST, Solution, [facility] #[id number], 153, cm, 08/19/23 2:04:00 EDT, Height, 171.8, [...] 01/07/25 17:08:00 EDT, Route to Pharmacy Electronically, [facility] #[id number], 149.86, cm, 02/09/23 15:52:00 EDT, Height, 172.3, kg, 11/26/22 5:4... Start Date: 01/07/25 Stop Date: 12/23/27 Status: Ordered gabapentin 100 mg oral capsule 100 mg, 1, capsule, By Mouth, 3 times a day, # 90 capsule, Refills 0, Tot. Refills 0, Maintenance, 12/14/22 17:21:00 EST, Route to Pharmacy Electronically, [facility] #[id number], Partial fill upon patient request if the prescription is for a kelly... Start Date: 12/14/22 Status: Ordered metFORMIN 1000 mg oral tablet 1 tablet = 1,000 mg, By Mouth, 2 times a day, # 60 tablet, 11 Refills, Maintenance, 09/24/23 9:06:00 EST, Tablet, [facility] #[id number], cancel previous metformin scripts, 153, cm, 09/16/23 13:33:00 EST, Height, 176, kg, 09/16/23 13:33:00 EST, D... Start Date: 09/24/23 Status: Ordered multivitamin Multiple Vitamins oral capsule 1 capsule, By Mouth, Daily, # 30 capsule, 0 Refills, Maintenance, 09/06/23 8:33:00 EST, Capsule, [facility] #[id number], Partial fill upon patient request if the [...] 2 Refills, Maintenance, 09/24/23 9:06:00 EST, Capsule, [facility] #[id number], Partial fill upon patient request if the [...] Confirmed Active DMII Confirmed Active 1DrRyder Wade [phone], Norma. Dx 06/07/09 Social History Social History Type Response Smoking Status Former smoker, quit more than 30 days ago entered on: 06/11/19 Sex Patient Care team information Care Team Personnel Name: Becca Crain RN Position: S RN Member Role: Primary Care Nurse Name: Jayna Sandhu RN Position: S RN Member Role: Primary Care Nurse Name: Maty Valencia RN Position: [facility] RN Member Role: Primary Care Nurse Name: Roger Peña RN Position: [facility] RN Supv Member Role: Primary Care Nurse Name: Mihir Jackson RN Position: [facility] RN Member Role: Primary Care Nurse Name: Danya Roman RN Position: [facility] SN RN Member Role: Primary Care Nurse Name: Ashley Brownlee RN Position: [facility] ED RN W/OE and Tasks Member Role: Primary Care Nurse Name: Elma Caruso (INSTR) Position: [facility] RN Member Role: Primary Care Nurse Name: Amanda Huerta RN Position: [facility] RN Member Role: Primary Care Nurse Name: Yessica Stock Position: S RN Member Role: Primary Care Nurse Name: Hazel Valadez DO Position: S Resident Member Role: PCP Address: Address: [address] [place] [address] [place] [address]- Name: Juli Calles RN Position: S RN Member Role: Primary Care Nurse Care Team Related Persons Name: ZULEIMA MCKEON Address: [place] [address] Name: ZAYRA STREETER Address: home [address] [address] Name: LUCITA TEMPLE Address: home Name: LARA TEMPLE Address: home [address] [facility] [address] [place] [address] Name: JUSTIN HINES
--- OUTSIDE RECORDS SUMMARY | 2024-04-04 10:15 | XMS_ITS | Continuity of Care Document ---
Author Organization [facility] Address [address] [place] [address]- Care Team Providers Care Lead Simulation Modeling Engineer Name Role Phone Joey Steele MD Primary Care Physician [facility]): 09[facility] - 10/26/21 [facility] [address] [place] [address]- Attending Physician: Vannesa Paulino Admitting Physician: AdmVannesa [...] Reason: Med Not Available 3Result Comment: [10/30/2014] [id number] 4Admin Note: VIS GIVEN DATED: 04/29/12 5Admin Note: vis given 05/23/11 6Admin Note: VIS GIVEN-DATED 06/07/10 7Admin Note: vis give dated 08/03/09 8Admin Note: VIS GIVEN VIS DATE 05/08/06 Medications albuterol 0.083% inhalation solution 3 mL = 2.5 mg, Inhalation, Every 6 hours, # 360 mL, 11 Refills, Maintenance, 08/29/20 20:48:00 EST,Solution, [facility], 152, cm, 08/13/20 13:28:00 EDT, Height, 175.5, kg, 08/09/20 0:18:00 EDT, Dry Weight Start Date: 08/29/20 Stop Date: 08/24/21 Status: Ordered albuterol CFC free 90 mcg/inh inhalation aerosol 2, puffs, Inhalation, 4 times a day, PRN, FOR WHEEZING AND SHORTNESS OF BREATH, # 1 each, Refills 5, Tot. Refills 5, Maintenance, 08/24/21 20:48:00 EDT, Route to Pharmacy Electronically, [id number], [facility] #[id number]... Start Date: 08/24/21 Stop Date: 02/20/22 Status: Ordered duloxetine 60 mg oral enteric coated capsule 1 capsule = 60 mg, By Mouth, Daily, # 30 capsule, 10 Refills, Maintenance, 10/14/20 15:08:00 EST, EC Capsule, [facility] #[id number], Partial fill upon patient request if the prescription is fora schedule II opioid drug., 152, cm, 08/13/20 13:28... Start Date: 10/14/20 Status: Ordered furosemide 40 mg oral tablet 40 mg, 1, tablet, By Mouth, 2 times a day, # 60 tablet, Refills 10, Tot. Refills 10, Maintenance, 10/14/20 15:09:00 EST, Route to Pharmacy Electronically, [facility] #[id number], 152, cm, 08/13/20 13:28:00 EDT, Height, 175.5, kg, 08/09/20 0:18:00... Start Date: 10/14/20 Stop Date: 09/09/21 Status: Ordered hydrOXYzine hydrochloride 25 mg oral tablet 1 tablet = 25 mg, By Mouth, 4 times a day, PRN for anxiety, # 40 tablet, 1 Refills, Maintenance, 08/28/21 15:25:00 EDT, Tablet, [facility] #[id number], Partial fill upon patient request if the prescription is for a schedule II opioid drug., 152,... Start Date: 08/28/21 Stop Date: 10/27/21 Status: Ordered meloxicam 15 mg oral tablet 1 tablet = 15 mg, By Mouth, Daily, For knee and back pain, # 30 tablet, 2 Refills, Maintenance, 06/17/21 9:06:00 EDT, Tablet, [facility] #[id number], Partial fill upon patient request if the prescription is for a schedule II opioid drug., 152, cm... Start Date: 06/17/21 Status: Ordered metFORMIN 1000 mg oral tablet 1 tablet = 1,000 mg, By Mouth, 2 times a day, # 60 tablet, 11 Refills, Maintenance, 06/17/21 9:12:00 EDT, Tablet, [facility] #[id number], cancel previous metformin scripts, 152, cm, 06/17/21 [...] 10 Refills, Maintenance, 10/14/20 15:09:00 EST, Tablet, [facility] #[id number], 152, cm, 08/13/20 13:28:00 EDT, Height, 175.5, [...] 2 Refills, Maintenance, 11/02/20 10:14:00 EST, Capsule, [facility] #[id number], Partial fill upon patient request if the [...] Active Osteoarthritis(Confirmed) Active DMII(Confirmed) Active 1DrRyder Wade [phone], Norma. Dx 06/07/09 Social History Social History Type Response Smoking Status Former smoker, quit more than 30 days ago entered on: 06/11/19 Sex
--- OUTSIDE RECORDS SUMMARY | 2024-04-04 10:15 | XMS_ITS | Continuity of Care Document ---
Author Organization [facility] Address [address] [place] [address]- Care Team Providers Care Supervisor Research Kennel Name Role Phone Allyson ARMSTRONG Hazel Primary Care Physician [facility]): 04/05/23 - 05/05/23 [facility] [address] [place] [address]- Allergies, Adverse Reactions, Alerts Substance Reaction Severity [...] Reason: Med Not Available 2Result Comment: [10/30/2014] [id number] 3Admin Note: VIS GIVEN DATED: 04/29/12 4Admin Note: vis given 05/23/11 5Admin Note: VIS GIVEN-DATED 06/07/10 6Result Comment: in error 7Admin Note: vis give dated 08/03/09 8Admin Note: VIS GIVEN VIS DATE 05/08/06 Medications albuterol 0.083% inhalation solution 3 mL = 2.5 mg, Inhalation, Every 6 hours, # 360 mL, 11 Refills, Maintenance, 07/17/22 11:50:00 EDT,Solution, [facility] #[id number], 152, cm, 07/12/22 13:07:00 EDT, Height, 175.5, [...] 03/31/23 21:58:00 EDT, Route to Pharmacy Electronically, [facility] #[id number], Partial fill upon patient request if the [...] 01/07/25 17:08:00 EDT, Route to Pharmacy Electronically, [facility] #[id number], 149.86, cm, 02/09/23 15:52:00 EDT, Height, 172.3, kg, 11/26/22 5:4... Start Date: 01/07/25 Stop Date: 12/23/27 Status: Ordered furosemide 40 mg oral tablet 40 mg, 1, tablet, By Mouth, 2 times a day, for 90 days, # 180 tablet, Refills 11, Tot. Refills 11, Hard Stop 01/07/25 17:08:00 EDT, 01/23/22 17:08:00 EDT, Route to Pharmacy Electronically, [facility] #[id number], 152, cm, 06/17/21 8:41:00 EDT, He... Start Date: 01/23/22 Stop Date: 01/07/25 Status: Ordered gabapentin 100 mg oral capsule 100 mg, 1, capsule, By Mouth, 3 times a day, # 90 capsule, Refills 0, Tot. Refills 0, Maintenance, 12/14/22 17:21:00 EST, Route to Pharmacy Electronically, [facility] #[id number], Partial fill upon patient request if the prescription is for a kelly... Start Date: 12/14/22 Status: Ordered ibuprofen 800 mg oral tablet 800 mg, 1, tablet, By Mouth, 3 times a day, for pain with food or milk, # 30 tablet, Refills 0, Tot. Refills 0, Maintenance, 02/09/23 17:06:00 EDT, Route to Pharmacy Electronically, [facility] #[id number], Partial fill upon patient request if th... Start Date: 02/09/23 Status: Ordered metFORMIN 1000 mg oral tablet 1 tablet = 1,000 mg, By Mouth, 2 times a day, # 60 tablet, 11 Refills, Maintenance, 07/12/22 13:42:00 EDT, Tablet, [facility] #[id number], cancel previous metformin scripts, 152, cm, 07/12/22 13:07:00 EDT, Height, 175.5, kg, 08/09/20 0:18:00 EDT,... Start Date: 07/12/22 Status: Ordered multivitamin Multiple Vitamins oral capsule 1 capsule, By Mouth, Daily, # 30 capsule, 0 Refills, Maintenance, 03/23/23 7:59:00 EDT, Capsule, [facility] #[id number], Partial fill upon patient request if the [...] 11 Refills, Maintenance, 04/21/22 12:34:00 EDT, Powder, [facility] #[id number], Partial fill upon patient request if the prescription is for a schedule II opioid drug., 1 puffs... Start Date: 04/21/22 Stop Date: 04/16/23 Status: Ordered Trulicity Pen 0.75 mg/0.5 mL subcutaneous solution 0.5 mL = 0.75 mg, Subcutaneous Injection, Every week, rotate injection sites, # 2 mL, 3 Refills, Maintenance, 07/12/22 14:01:00 EDT, Solution, [facility] #[id number], Partial fill upon patient request if the prescription is for a schedule II opio... Start Date: 07/12/22 Status: Ordered Vitamin D3 2000 intl units oral capsule 1 capsule = 2,000 International_Units, By Mouth, Daily, # 60 capsule, 2 Refills, Maintenance, 07/17/22 16:56:00 EDT, Capsule, [facility] #[id number], Partial fill upon patient request if the [...] Confirmed Active DMII Confirmed Active 1DrRyder Wade [phone], Norma. Dx 06/07/09 Social History Social History Type Response Smoking Status Former smoker, quit more than 30 days ago entered on: 06/11/19 Sex Patient Care team information Care Team Personnel Name: Jayna Sandhu RN Position: [facility] RN Member Role: Primary Care Nurse Name: Maty Valencia RN Position: [facility] RN Member Role: Primary Care Nurse Name: Roegr Peña RN Position: [facility] RN Supv Member Role: Primary Care Nurse Name: Mihir Jackson RN Position: [facility] RN Member Role: Primary Care Nurse Name: Tessy Jaramillo RN Position: [facility] RN Member Role: Primary Care Nurse Name: Danya Roman RN Position: [facility] SN RN Member Role: Primary Care Nurse Name: Kem RNAshley Position: [facility] ED RN W/OE and Tasks Member Role: Primary Care Nurse Name: Becca Enrique RN Position: [facility] RN Member Role: Primary Care Nurse Name: Elma Caruso (INSTR) Position: [facility] RN Member Role: Primary Care Nurse Name: Amanda Huerta RN Position: [facility] RN Member Role: Primary Care Nurse Name: Yessica Stock Position: [facility] RN Member Role: Primary Care Nurse Name: Hazel Valadez DO Position: [facility] Resident Member Role: PCP Address: Address: [address] [place] [address] Adult [place], [place] [address] Name: Radha Bravo RN Position: [facility] RN Member Role: Primary Care Nurse Name: Juli Calles RN Position: [facility] RN Member Role: Primary Care Nurse Care Team Related Persons Name: ZULEIMA MCKEON Address: [place] [address] Name: LUCITA TEMPLE Address: home Name: LARA TEMPLE Name: JUSTIN HINES
== END 2024-04-02 13:07 | disposition home or self-care (01) ==
LOC: HO.HBS 08:27
PROVIDERS: Visit Provider Surgery
DX: E66.01 Morbid (severe) obesity due to excess calories (principal)
CPT/HCPCS: 99203

== ENCOUNTER → 2024-04-02 08:27 | Outpatient (BNVA) | payer OTHER, SELFPAY | PROVIDERS: Visit Provider Surgery ==

== ENCOUNTER → 2024-04-22 14:56 | Outpatient (BNVA) | payer OTHER, SELFPAY | PROVIDERS: Visit Provider Counselor Mental Health ==